=== PATIENT | female | born 1975 | race Caucasian/White ===

== ENCOUNTER 2022-07-09 07:45 | Outpatient (CLI) | payer BC, SELFPAY ==
[2022-07-09 10:49] LABS: Chloride* 103 mmol/L (96-114)
[2022-07-09 10:50] LABS: Albumin* 3.8 g/dL (3.3-5.0); Sodium* 135 mmol/L (135-149)
[2022-07-09 10:53] LABS: Alanine Aminotransferase* 17 U/L (4-35); Alkaline Phosphatase* 60 U/L (40-150); Aspartate Amino Transferase* 22 U/L (12-35); Bilirubin Total* 0.5 mg/dL (0.1-1.5); Blood Urea Nitrogen* 15 mg/dL (5-24); Calcium* 8.9 mg/dL (8.4-10.6); Carbon Dioxide* 26 mmol/L (20-32); Creatinine* 0.8 mg/dL (0.5-1.5); Estimated Glomerular Filt Rate 90 ml/min; Glucose* 113 mg/dL (60-115)
[2022-07-09 11:13] LABS: Vitamin D 25 Hydroxy* 46 ng/mL (30-80)
== END 2022-07-09 07:46 | disposition home or self-care (01) ==
PROVIDERS: PCP Internal Medicine; Visit Provider Nurse Practitioner Family
DX: R07.89 Other chest pain (principal); Z79.899 Other long term (current) drug therapy
CPT/HCPCS: 80053; 82306; 84443

== ENCOUNTER 2022-08-03 20:01 | Emergency (ER) | payer BC, SELFPAY ==
[2022-08-03 20:11] VITALS: BP 130/80; PULSE 81; RESP 16; TEMP 36.6; O2SAT 100; BMI 22.7
--- NOTE | 2022-08-03 21:08 | CRLHL7_ITS ---
For Patients: As a result of the Cures Act, medical imaging exams and procedure reports are released immediately into your electronic medical record. You may view this report before your referring provider. If you have questions, please contact your health care provider. INDICATION: Shortness of breath. TECHNIQUE: Chest 2 views. COMPARISON: None. FINDINGS: Lungs: Clear lungs. No consolidation. Pleura: No pleural effusion or pneumothorax. Heart and Mediastinum: The cardiomediastinal silhouette is normal. The vessels are unremarkable. Bones: Unremarkable. IMPRESSION: No acute cardiopulmonary disease. Dictated by Matthias Barbosa MD @ 08/03/2022 9:56:14 PM (Electronically Signed)
--- OUTSIDE RECORDS SUMMARY | 2022-08-03 21:25 | XMS_ITS | Encounter Summary ---
:1975 Author Organization [facility] Address [address] [place] [address] Care Team Providers Name Role Phone Unavailable Primary Care Provider Unavailable Encounter Details Date Type Department Care Team Description 04/30/2009 Hospital Encounter HX NO MAPPING Provider, Historical Social History Tobacco Use Types Packs/Day Years Used Date Smoking Tobacco: Never Assessed Alcohol Habits Answer Date Recorded How often do you have a drink containing alcohol? Never 03/12/2021 How many drinks containing alcohol do you have on a typical Not asked day when you are drinking? How often do you have six or more drinks on one occasion? No t asked Comment: Not asked Social Isolation Answer Date Recorded In a typical week, how many times do you More than three sarah es a week 06/22/2022 talk on the phone with family, friends, or neighbors? How often do you get together with friends Once a week 06/22/2022 or relatives? How often do you attend faith or Patient refused 2021 congregational services? Do you belong to any clubs or Yes 06/22/2022 organizations such as faith groups, unions, fraternal or athletic groups, or school groups? How often do you attend meetings of the More than 4 times pe r year 06/22/2022 clubs or organizations you belong to? Are you now , , , 06/22/2022 , never or living with a partner? Physical Activity Answer Date Recorded On average, how many days per week do you engage in moderate to 1 day 06/22/2022 strenuous exercise (like walking fast, running, jogging, dancing, swimming, biking, or other activities that cause a light or heavy sweat)? On average, how many minutes do you engage in exercise at th is 10 min 06/22/2022 level? Stress Answer Date Recorded Do you feel stress - tense, restless, nervous, or anxious, R ather much 06/22/2022 or unable to sleep at night because your mind is troubled all the time - these days? Financial Resource Strain Answer Date Recorded How hard is it for you to pay for the very basics like Not v christina hard 06/22/2022 food, housing, medical care, and heating? Intimate Partner Violence Answer Date Recorded Within the last year, have you been afraid of your Not asked partner or ex-partner? Within the last year, have you been humiliated or Yes 06/22/2022 emotionally abused in other ways by your partner or ex-partner? Within the last year, have you been kicked, hit, Not asked slapped, or otherwise physically hurt by your partner or ex-partner? Within the last year, have you been raped or forced to Patie nt refused 06/22/2022 have any kind of sexual activity by your partner or ex-partner? Food Insecurity Answer Date Recorded Within the past 12 months, you worried that your food Someti mes true 06/22/2022 would run out before you got money to buy more. Within the past 12 months, the food you bought just Never tr ue 06/22/2022 didn't last and you didn't have money to get more. Transportation Needs Answer Date Recorded In the past 12 months, has lack of transportation kept you f rom No 06/22/2022 medical appointments or from getting medications? In the past 12 months, has lack of transportation kept you f rom No 06/22/2022 meetings, work, or getting things needed for daily living? Housing Stability Answer Date Recorded In the last 12 months, was there a time when you were not ab le No 06/22/2022 to pay the mortgage or rent on time? In the last 12 months, how many places have you lived? 1 06/22/2022 In the last 12 months, was there a time when you did not hav e a No 06/22/[address] or slept in a long-term (including now)? Sex Assigned at Date Recorded Female 06/22/2022 8:38 AM CDT documented as of this encounter Medications at Time of Discharge Medication Sig Dispensed Refills Start Date End Date cyanocobalamin (VITAMIN B12) Take by mouth as 0 0 01/21/2008 500 mcg tablet needed. diazePAM (VALIUM) 2 mg Take by mouth as 0 008 tablet needed. documented as of this encounter Plan of Treatment Not on filedocumented as of this encounter Visit Diagnoses Not on filedocumented in this encounter
--- OUTSIDE RECORDS SUMMARY | 2022-08-03 21:25 | XMS_ITS | Encounter Summary ---
:1975 Author Organization [facility] Address [address] [place] [address] Care Team Providers Name Role Phone Unavailable Primary Care Provider Unavailable Reason for Visit Reason Comments Pre-visit Intake Encounter Details Date Type Department Care Team Description 03/10/2021 Clinical Communication Department of Qu[place], Pre- visit Intake Neurology in Robert Downey M.D. [place], [place] [address] [place] [address] [address] [place] [phone] Social History Tobacco Use Types Packs/Day Years Used Date Smoking Tobacco: Never Smokeless Tobacco: Never Alcohol Habits Answer Date Recorded How often [...] or relatives? How often do you attend gnosticist or Patient refused 2021 taoism services? Do you belong to any clubs or Yes 06/22/2022 organizations such as gnosticist groups, unions, fraternal or athletic groups, or [...] place to sleep or slept in a [place] [facility] (including now)? Sex Assigned at Date Recorded Female 06/22/2022 8:38 AM CDT documented as of this encounter Plan of Treatment Not on filedocumented as of this encounter Visit Diagnoses Not on filedocumented in this encounter
--- OUTSIDE RECORDS SUMMARY | 2022-08-03 21:25 | XMS_ITS | Encounter Summary ---
:1975 Author Organization [facility] Address [address] [place] [address] Care Team Providers Name Role Phone Unavailable Primary Care Provider Unavailable Encounter Details Date Type Department Care Team Description 07/14/2022 Orders Only Pharmacy Prior Auth RO Regina oSmers [phone] Social History Tobacco Use Types Packs/Day Years Used Date Smoking Tobacco: Never Smokeless Tobacco: Never Alcohol Use Standard Drinks/Week Comments Not Currently 0 (1 standard drink = 0.6 oz pure alcoho l) Alcohol Habits Answer Date Recorded How often [...] or relatives? How often do you attend baptism or Patient refused 2021 zoroastrianism services? Do you belong to any clubs or Yes 06/22/2022 organizations such as baptism groups, unions, fraternal or athletic groups, or [...] minutes do you engage in exercise at is 10 min 06/22/2022 level? Stress Answer [...] place to sleep or slept in a half-way (including now)? Education Answer Date Recorded What is the highest level of school Associate degree: danay briceño, 03/12/2021 you have completed or the highest technical, or vocational saira betancur degree you have received? Sex Assigned at Date Recorded Female 06/22/2022 8:38 AM CDT documented as of this encounter Plan of Treatment Not on filedocumented as of this encounter Visit Diagnoses Not on filedocumented in this encounter Additional Health Concerns Assessment Noted Time PHQ-9 Depression Total Score: 11 03/23/2021 2:58 PM CD T documented as of this encounter
--- OUTSIDE RECORDS SUMMARY | 2022-08-03 21:25 | XMS_ITS | Encounter Summary ---
:1975 Author Organization [facility] Address [address] [place] [address] Care Team Providers Name Role Phone Unavailable Primary Care Provider Unavailable Encounter Details Date Type Department Care Team Description 07/02/2022 Orders Only Pharmacy Prior Auth RO Negar Man [phone] Social History Tobacco Use Types Packs/Day Years [...] or relatives? How often do you attend sabianism or Patient refused 2021 adventism services? Do you belong to any clubs or Yes 06/22/2022 organizations such as sabianism groups, unions, fraternal or athletic groups, or [...] place to sleep or slept in a nursing home (including now)? Education Answer Date Recorded What is the highest level of school Associate degree: danay briceño, 03/12/2021 you have completed or the highest technical, or vocational p gypsy degree you have received? Sex Assigned at [...]
--- OUTSIDE RECORDS SUMMARY | 2022-08-03 21:25 | XMS_ITS | Encounter Summary ---
:1975 Author Organization [facility] Address [address] [place] [address] Care Team Providers Name Role Phone Unavailable Primary Care Provider Unavailable Reason for Visit Reason Comments Med Refill Encounter Details Date Type Department Care Team Description 04/13/2022 Refill Department of Neurology in Gus Schwarz M.D. Med Refill [place], [place] [address] [facility] [address] [place] [address] [place] [address] [phone] Social History Tobacco Use Types Packs/Day Years [...] or relatives? How often do you attend samaritan or Patient refused 2021 yazdanism services? Do you belong to any clubs or Yes 06/22/2022 organizations such as samaritan groups, unions, fraternal or athletic groups, or [...] place to sleep or slept in a senior care (including now)? Education Answer Date Recorded What is the highest level of school Associate degree: danay dylonelsy, 03/12/2021 you have completed or the highest technical, or vocational p gypsy degree you have received? Sex Assigned at Date Recorded Female 06/22/2022 8:38 AM CDT documented as of this encounter Miscellaneous Notes Telephone Encounter - Aurora Concepcion - 04/30/2022 8:18 AM CDT I will send the no refill letter via snail mail. Seems like the only option at this point. Telephone Encounter - Gus Lee M.D. - 04/14/2022 8:45 AM CDT Please have her obtain refills locally. Telephone Encounter - Viky Hernandez R.N. - 04/13/2022 9:31 AM CDT Patient has not seen you since February 2021. Should he refill this Emgality locally? documented in this encounter Plan of Treatment Not on filedocumented as of this encounter Visit Diagnoses Not on filedocumented in this encounter Additional Health Concerns Assessment Noted Time PHQ-9 Depression Total Score: 11 03/23/2021 2:58 PM CD T documented as of this encounter
--- OUTSIDE RECORDS SUMMARY | 2022-08-03 21:25 | XMS_ITS | Encounter Summary ---
:1975 Author Organization [facility] Address [address] [place] [address] Care Team Providers Name Role Phone Unavailable Primary Care Provider Unavailable Encounter Details Date Type Department Care Team Description 10/29/2021 Orders Only Pharmacy Prior Auth Anahi Villalta [phone] [address] [place] [address] Social History Tobacco Use Types Packs/Day Years [...] or relatives? How often do you attend scientologist or Patient refused 2021 pentecostalism services? Do you belong to any clubs or Yes 06/22/2022 organizations such as scientologist groups, unions, fraternal or athletic groups, or [...] place to sleep or slept in a [facility] (including now)? Education Answer Date Recorded What [...]
--- OUTSIDE RECORDS SUMMARY | 2022-08-03 21:25 | XMS_ITS | Encounter Summary ---
:1975 Author Organization [facility] Address [address] [place] [address] Care Team Providers Name Role Phone Unavailable Primary Care Provider Unavailable Encounter Details Date Type Department Care Team Description 03/12/2021 Ancillary Procedure Department of Batsheva Araya Occipital; Radiology in Robert Downey M.D. Headache Daily; [place], [place] [address] [facility] Migraine Headache Without Aura [address] [place] [phone] Social History Tobacco Use Types Packs/Day Years [...] or relatives? How often do you attend yazidi or Patient refused 2021 orthodox services? Do you belong to any clubs or Yes 06/22/2022 organizations such as yazidi groups, unions, fraternal or athletic groups, or [...] place to sleep or slept in a group home (including now)? Education Answer Date Recorded What is the highest level of school Associate degree: danay briceño, 03/12/2021 you have completed or the highest technical, or vocational p perram degree you have received? Sex Assigned at Date Recorded Female 06/22/2022 8:38 AM CDT documented as of this encounter Plan of Treatment Not on filedocumented as of this encounter Procedures Procedure Name Priority Date/Time Associated Comments Diagnosis INTERPRETATION OF RAD - Routine 03/12/2021 9:04 Neuralgia Result s for OUTSIDE MR HEAD (most inpatients AM CDT Occipital this procedure and all Headache Daily are in the outpatients) Migraine results Headache Without section. Aura documented in this encounter Results Interpretation of Outside MR Spine (03/12/2021 9:04 AM CDT) Anatomical Region Laterality Modality Neuroradiology RST LOS, Neuroradiology [facility], N/A Magnetic Resonance Neuroradiology FLA LOS, Spine, Other Specimen (Source) Anatomical Collection Method Collection Time Re ceived Time Location / / Volume Laterality 03/12/2021 9:08 AM CDT Impressions 03/12/2021 10:05 AM CDT 1. No focal etiology of headache identified. Stable somewhat prominent upwardly convex pituitary without evidence of ass ociated abnormal mass. 2. Mild cervical spondylosis. 3. Thyroid nodules, largest at left thyr oid lobe. ??Thyroid ultrasound would be helpful to further characterize. Narrative 03/12/2021 10:05 AM CDT EXAM: ??INTERPRETATION OF OUTSIDE MR HEAD, INTERPRETATION OF OUTSIDE MR SPINE COMPARISON: MR brain 01/18/2008 FINDINGS: ?? Outside MR brain with and without IV rizwana olinium contrast performed 02/02/2018. Outside cervical spine with and without IV gadolinium contrast performed 02/02/2018. BRAIN: Brain parenchyma demonstrates no evidenc e for abnormal mass, infarct, hemorrhage or hydrocephalus. No extra-axial fluid c ollection or midline shift. No abnormal parenchymal enhancement. Somewhat prominent, upwardly convex homo geneously enhancing pituitary gland, approximately 10 mm SI, not contacting t he overlying optic chiasm, with nonspecific appearance, unchanged compar ed with the prior study from 01/18/2008. Infundibular stalk is of normal caliber and is midline. Posterior pituitary bright spot is present. CERVICAL SPINE: Vertebral body heights are preserved. Mi ld right convex cervicothoracic curve. The bone marrow signal is within normal limits. Cervical cord is normal in signal, course and caliber. No abnormal enhancement. Mild cervical spondylosis with minimal l oss of disc space height at C6-C7 where there is a bulging disc, larger at the r ight, contributing to minimal spinal canal stenosis, with mild narrowing at p roximal right C6-C7 neural foramen. Tiny bulging disc at C5-C6. ??Remainder of the spinal canal is widely patent. Several thyroid nodules, the largest of which is at the anterior left lobe, approximately 1.4 x 0.8 x 2.1 cm (AP x M L x SI). ?? Procedure Note Deshawn Hodge Jr., M.D., Ph.D. - 02/28 EXAM: INTERPRETATION OF OUTSIDE MR HEAD, INTERPRETATION OF OUTSIDE MR SPINE COMPARISON: MR brain 01/18/2008 FINDINGS: Outside MR brain with and without IV rizwana olinium contrast performed 02/02/2018. Outside cervical spine with and without IV gadolinium contrast performed 02/02/2018. BRAIN: Brain parenchyma demonstrates no evidenc e for abnormal mass, infarct, hemorrhage or hydrocephalus. No extra-axial fluid c ollection or midline shift. No abnormal parenchymal enhancement. Somewhat prominent, upwardly convex homo geneously enhancing pituitary gland, approximately 10 mm SI, not contacting t he overlying optic chiasm, with nonspecific appearance, unchanged compar ed with the prior study from 01/18/2008. Infundibular stalk is of normal caliber and is midline. Posterior pituitary bright spot is present. CERVICAL SPINE: Vertebral body heights are preserved. Mi ld right convex cervicothoracic curve. The bone marrow signal is within normal limits. Cervical cord is normal in signal, course and caliber. No abnormal enhancement. Mild cervical spondylosis with minimal l oss of disc space height at C6-C7 where there is a bulging disc, larger at the r ight, contributing to minimal spinal canal stenosis, with mild narrowing at p roximal right C6-C7 neural foramen. Tiny bulging disc at C5-C6. Remainder of the spinal canal is widely patent. Several thyroid nodules, the largest of which is at the anterior left lobe, approximately 1.4 x 0.8 x 2.1 cm (AP x M L x SI). IMPRESSION: 1. No focal etiology of headache identif ied. Stable somewhat prominent upwardly convex pituitary without evidence of ass ociated abnormal mass. 2. Mild cervical spondylosis. 3. Thyroid nodules, largest at left thyr oid lobe. Thyroid ultrasound would be helpful to further characterize. Robert LLANES MRI PROCEDURES Interpretation of Outside MR Head (03/12/2021 9:04 AM CDT) Anatomical Region Laterality Modality Neuroradiology RST LOS, Neuroradiology [facility]Z LOS, N/A Magnetic Resonance Neuroradiology FLA LOS, Head, Other Specimen (Source) Anatomical Collection Method Collection Time Re ceived Time Location / / Volume Laterality 03/12/2021 9:08 AM CDT Impressions 03/12/2021 10:05 AM CDT 1. No focal etiology of headache identified. Stable somewhat prominent upwardly convex pituitary without evidence of ass ociated abnormal mass. 2. Mild cervical spondylosis. 3. Thyroid nodules, largest at left thyr oid lobe. ??Thyroid ultrasound would be helpful to further characterize. Narrative 03/12/2021 10:05 AM CDT EXAM: ??INTERPRETATION OF OUTSIDE MR HEAD, INTERPRETATION OF OUTSIDE MR SPINE COMPARISON: MR brain 01/18/2008 FINDINGS: ?? Outside MR brain with and without IV rizwana olinium contrast performed 02/02/2018. Outside cervical spine with and without IV gadolinium contrast performed 02/02/2018. BRAIN: Brain parenchyma demonstrates no evidenc e for abnormal mass, infarct, hemorrhage or hydrocephalus. No extra-axial fluid c ollection or midline shift. No abnormal parenchymal enhancement. Somewhat prominent, upwardly convex homo geneously enhancing pituitary gland, approximately 10 mm SI, not contacting t he overlying optic chiasm, with nonspecific appearance, unchanged compar ed with the prior study from 01/18/2008. Infundibular stalk is of normal caliber and is midline. Posterior pituitary bright spot is present. CERVICAL SPINE: Vertebral body heights are preserved. Mi ld right convex cervicothoracic curve. The bone marrow signal is within normal limits. Cervical cord is normal in signal, course and caliber. No abnormal enhancement. Mild cervical spondylosis with minimal l oss of disc space height at C6-C7 where there is a bulging disc, larger at the r ight, contributing to minimal spinal canal stenosis, with mild narrowing at p roximal right C6-C7 neural foramen. Tiny bulging disc at C5-C6. ??Remainder of the spinal canal is widely patent. Several thyroid nodules, the largest of which is at the anterior left lobe, approximately 1.4 x 0.8 x 2.1 cm (AP x M L x SI). ?? Procedure Note Deshawn Hodge Jr., M.D., Ph.D. - 02/28 EXAM: INTERPRETATION OF OUTSIDE MR HEAD, INTERPRETATION OF OUTSIDE MR SPINE COMPARISON: MR brain 01/18/2008 FINDINGS: Outside MR brain with and without IV rizwana olinium contrast performed 02/02/2018. Outside cervical spine with and without IV gadolinium contrast performed 02/02/2018. BRAIN: Brain parenchyma demonstrates no evidenc e for abnormal mass, infarct, hemorrhage or hydrocephalus. No extra-axial fluid c ollection or midline shift. No abnormal parenchymal enhancement. Somewhat prominent, upwardly convex homo geneously enhancing pituitary gland, approximately 10 mm SI, not contacting t he overlying optic chiasm, with nonspecific appearance, unchanged compar ed with the prior study from 01/18/2008. Infundibular stalk is of normal caliber and is midline. Posterior pituitary bright spot is present. CERVICAL SPINE: Vertebral body heights are preserved. Mi ld right convex cervicothoracic curve. The bone marrow signal is within normal limits. Cervical cord is normal in signal, course and caliber. No abnormal enhancement. Mild cervical spondylosis with minimal l oss of disc space height at C6-C7 where there is a bulging disc, larger at the r ight, contributing to minimal spinal canal stenosis, with mild narrowing at p roximal right C6-C7 neural foramen. Tiny bulging disc at C5-C6. Remainder of the spinal canal is widely patent. Several thyroid nodules, the largest of which is at the anterior left lobe, approximately 1.4 x 0.8 x 2.1 cm (AP x M L x SI). IMPRESSION: 1. No focal etiology of headache identif ied. Stable somewhat prominent upwardly convex pituitary without evidence of ass ociated abnormal mass. 2. Mild cervical spondylosis. 3. Thyroid nodules, largest at left thyr oid lobe. Thyroid ultrasound would be helpful to further characterize. Robert Araya M.D. IMG MRI PROCEDURES documented in this encounter Visit Diagnoses Diagnosis Neuralgia Occipital Headache Daily Migraine Headache Without Aura Neuralgia Occipital Headache Daily Migraine Headache Without Aura documented in this encounter
--- OUTSIDE RECORDS SUMMARY | 2022-08-03 21:25 | XMS_ITS | Encounter Summary ---
:1975 Author Organization [facility] Address [address] [place] [address] Care Team Providers Name Role Phone Unavailable Primary Care Provider Unavailable Encounter Details Date Type Department Care Team Description 06/10/2008 Hospital Encounter HX [facility]LT Provider, [place] boo Social History Tobacco Use Types Packs/Day Years [...] or relatives? How often do you attend rastafari or Patient refused 2021 anabaptism services? Do you belong to any clubs or Yes 06/22/2022 organizations such as rastafari groups, unions, fraternal or athletic groups, or [...] slept in a senior care (including now)? Sex Assigned at Date Recorded [...]
--- OUTSIDE RECORDS SUMMARY | 2022-08-03 21:25 | XMS_ITS | Encounter Summary ---
:1975 Author Organization [facility] Address [address] [place] [address] Care Team Providers Name Role Phone Unavailable Primary Care Provider Unavailable Reason for Referral Outpatient (Routine) - Authorized Specialty Diagnoses / Procedures Referred By Contact Refer red To Contact Neurology Gus Lee M .D. [address] [phone] Referral ID Status Reason Start Date Expiration Date Visits V isits Requested Authorized [id number] Authorized 06/24/2022 06/23/2025 1 1 Medication Prior Authorization - Denied Specialty Diagnoses / Procedures Referred By Contact Refer red To Contact Gus Lee M .D. [address] [place] [phone] Referral ID Status Reason Start Date Expiration Date Visits Requ ested Visits Authorized [id number] Denied 1 1 Reason for Visit Outpatient (Routine) - Closed Specialty Diagnoses / Procedures Referred By Contact Refer red To Contact Neurology Gus Lee M .D. [address] [phone] Referral ID Status Reason Start Date Expiration Date Visits Requ ested Visits Authorized [id number] Closed 03/23/2021 03/23/2022 1 1 Encounter Details Date Type Department Care Team Description 06/24/2022 Telemedicine Department of [facility], Migraine Heada jyoti Chronic (Primary Dx); Neurology in Ramon Weber Migraine Headache Without Aura [place], [place] 200 [facility] 200 [place] [id number] Social History Tobacco Use Types Packs/Day Years [...] or relatives? How often do you attend latter-day or Patient refused 2021 muslim services? Do you belong to any clubs or Yes 06/22/2022 organizations such as latter-day groups, unions, fraternal or athletic groups, or [...] place to sleep or slept in a skilled nursing (including now)? Education Answer Date Recorded What is the highest level of school Associate degree: danay briceño, 03/12/2021 you have completed or the highest technical, or vocational p gypsy degree you have received? Sex Assigned at Date Recorded Female 06/22/2022 8:38 AM CDT documented as of this encounter Progress Notes Gus Lee M.D. - 06/24/2022 10:30 AM CDT SUBJECTIVE This visit was conducted via real-time audio/video technology by Gus Lee M.D. at [facility] to the patient in patient's home. This Video Visit was performed during the COVID-19 emergency, when many states had issued zeimavh-nv-bnuhi orders. CHIEF COMPLAINT / REASON FOR VISIT: Ms. Echeverria returns today for subsequent evaluation and assessment of the effectiveness of treatments suggested at her previous visit in February 2021 Since her last visit she has been taking: none of the above oral medications; Galcanezumab (Emgality) at a dose of 120 mg sc every 4 weeks; HISTORY OF PRESENT ILLNESS: Over the past 4 weeks, Ms. Echeverria reports having had 3 headache days. Over the past 4 weeks the average severity and disability caused by the patients headaches is 2-moderate. She reports significant improvement of her headache after she was started on Emgality. She feel likeit has changed her life totally and she is not able to live a normal life. The headache reduced from28 days to 3 days per month. During those 3 days, she only has mild headache. She tried rizatriptan but felt like it gives the same side effects as sumatriptan. She currently uses ibuprofen and aspirin as needed. She has completely stop the narcotic and marijuana that she was using given the improvement she receives from Emgality. Current Acute Headache Medications: Advil prn Current Prophylactic Headache Medications: Emgality since February 2021 Medications used in the past for headache (acute and prophylactic): Sumatriptan Rizatriptan- side effects Past preventative medications have included Topiramate- felt medicated 100 mg daily, started with 25 mg, not able to tolerate side effect Gabapentin- brain fog Naltrexone - not sure if it helped, but were also on duloxetine and topamax Duloxetine- added with naltrexone and topamax, did not help Pregabalin-- did not help Amitriptyline- does not remember She has also had 2 rounds of Botox 3 months apart. Not sure how many units, could not remember whether it heoped Nerve blocks- the pain was gone for several hours then came back, she said it was with steroid. She has had radiofrequency ablation at least twice that she recalls. She has also tried Flexeril helped a bit Tizanidine 4 mg helps a little Zofran- helped with nausea Indomethacin, not sure if it helped The MIDAS score today which reflects the past three months was 2. Over the past three months her average subjective pain severity scale was (0 - 10) 8. The following portions of the patient's history were reviewed and updated as appropriate: allergies,current medications, family history, medical history, social history, surgical history, and problem list. ASSESSMENT / PLAN # Chronic migraine # Migraine without aura # History of medication overuse headache with opioid and cannabis, resolved # Remote history of meningitis 15 years ago, recovered well # History of Cuello's palsy 8 years ago, recovered well Treatment Recommendations over the next few months: For further investigation of Ms. Echeverria's headaches or comorbid disorders I am suggesting additional testing which includes: No testing ordered at this visit Recommended therapies for acute treatment of headache: She has tried sumatriptan and rizatriptan but experienced side effect and not able to tolerate. She is interested in trying Nurtec. Rimegepant is a CGRP receptor antagonist. It received FDA approval for the acute treatment of migraine in 2019. It is a migraine specific medication. Please take it at the onset of migraine. Maximum one tablet in 24 hours. Potential side effects include tiredness, nausea, dry eye, and constipation. We discussed that she can use it up to 16 days per month. Other options include Ubrelvy, naratriptan Preventative therapies recommended: She will continue Emgality for now given the significant improvement. She thought maybe it is becoming less effective over the past several months. I recommended her to continue to monitor the progress. If her headache worsens, we could consider switching to Aimovig or Ajovy. I attempted to answer any questions that she had regarding her headaches and the recommended treatment. Recommend lifestyle modifications including the SEEDS for success in headache management, including Sleep hygiene, Exercising regularly, Eating healthy and regular meals, Drinking water and maintaininga headache Diary, and Stress reduction. Follow up plan: with me in 9-12 months Total visit time 25 minutes including [id number] time, chart reviewed and documentation, with over50% spent counseling with the patient and coordination of care activities described above. Answers submitted by the patient for this visit: General Review of Symptoms (Submitted on 06/22/2022) No general issues: Yes No eye issues: Yes No ENT issues: Yes Rapid or fluttering heart beats: Yes No respiratory issues: Yes No GI issues: Yes No muscle/bone issues: Yes No skin issues: Yes Headache: Yes No mental health issues: Yes No blood/lymph issues: Yes No urinary/reproductive issues: Yes (Submitted on 06/22/2022) How would you rate the average maximum headache pain that you have experienced over the past 4 weekswith 0 = No Pain and 10 = the worst imaginable pain?: 7 documented in this encounter Plan of Treatment Scheduled Referrals Name Type Priority Associated Diagnoses [facility] Outpatient Referral Routine Expe cted: visit (clinic) 06/24/2023 (Approximate), Expires: 09/24/2023 documented as of this encounter Visit Diagnoses Diagnosis Migraine Headache Chronic - Primary Migraine Headache Without Aura documented in this encounter Additional Health Concerns Assessment Noted Time PHQ-9 Depression Total Score: 11 03/23/2021 2:58 PM CD T documented as of this encounter
--- OUTSIDE RECORDS SUMMARY | 2022-08-03 21:25 | XMS_ITS | Encounter Summary ---
:1975 Author Organization [facility] Address [address] [place] [address] Care Team Providers Name Role Phone Unavailable Primary Care Provider Unavailable Encounter Details Date Type Department Care Team Description 11/03/2021 Orders Only [facility] S[facility]chez, Pcp [address] [place], [place] [phone] Social History Tobacco Use Types Packs/Day Years [...] or relatives? How often do you attend lutheran or Patient refused 2021 presybeterian services? Do you belong to any clubs or Yes 06/22/2022 organizations such as lutheran groups, unions, fraternal or athletic groups, or [...] place to sleep or slept in a fdc (including now)? Education Answer Date Recorded What [...]
--- OUTSIDE RECORDS SUMMARY | 2022-08-03 21:25 | XMS_ITS | Encounter Summary ---
:1975 Author Organization [facility] Address [address] [place] [address] Care Team Providers Name Role Phone Unavailable Primary Care Provider Unavailable Reason for Referral Outpatient (Routine) - Closed Specialty Diagnoses / Procedures Referred By Contact Refer red To Contact Neurology Diagnoses Neuralgia Occipital Headache Daily Migraine Headache Without Aura Robert Araya M.D. [facility] [address] [place] [address] Referral ID Status Reason Start Date Expiration Date Visits Requ ested Visits Authorized [id number] Closed 03/12/2021 03/12/2022 1 1 Reason for Visit Appointment Request (Routine) - Closed Specialty Diagnoses / Procedures Referred By Contact Refer red To Contact Neurological Surgery Diagnoses Neuralgia Occipital Referral ID Status Reason Start Date Expiration Date Visits Requ ested Visits Authorized [id number] Closed 03/02/2021 03/02/2022 2 1 Encounter Details Date Type Department Care Team Description 03/12/2021 Comprehensive Visit Department of Batsheva Araya Occipital (Primary Dx); Neurology in Robert Downey M.D. Headache Daily; [place], [place] [address] [facility] Migraine Headache Without Aura [address] [place] [phone] Social History Tobacco Use Types Packs/Day Years [...] or relatives? How often do you attend mandaeism or Patient refused 2021 temple services? Do you belong to any clubs or Yes 06/22/2022 organizations such as mandaeism groups, unions, fraternal or athletic groups, or school groups? How often do you attend meetings of the More than 4 times r year 06/22/2022 clubs or organizations you [...] place to sleep or slept in a [facility] (including now)? Education Answer Date Recorded What is the highest level of school Associate degree: danay briceño, 03/12/2021 you have completed or the highest technical, or vocational p perram degree you have received? Sex Assigned at Date Recorded Female 06/22/2022 8:38 AM CDT documented as of this encounter Last Filed Vital Signs Vital Sign Reading Time Taken Comments Blood Pressure - - Pulse - - Temperature - - Respiratory Rate - - Oxygen Saturation - - Inhaled Oxygen Concentration - - Weight 80 kg (176 lb 5.9 oz) 03/12/2021 7:33 AM CDT Height 182 cm (5' 11.65) 03/12/2021 7:33 AM CDT Body Mass Index 24.15 03/12/2021 7:33 AM CDT documented in this encounter Consult Notes Robert Araya M.D. - 03/12/2021 8:00 AM CDT SUBJECTIVE Referring Provider: No ref. provider found CHIEF COMPLAINT / REASON FOR VISIT Vivek Echeverria is a 45 y.o. left-handed female who presents for evaluation of head pain with anoutside diagnosis of occipital neuralgia. HISTORY OF PRESENT ILLNESS Ms. Echeverria indicates that headaches of any kind began in 2014. Those were migraines. She describes these as usually left-sided pain, but occasionally holocephalic that would be a throbbing sensation as well as with retro-orbital and nasal pain. This was associated with nausea and light sensitivity. When those started they were initially happening every couple of days. Over time, there was a gradual change so that headache type subsided and now she rarely gets them, but they were replaced by a different type of headache some time around 2016 or 2017. That is what she currently presents with. She describes this pain as a deep, twisting pain on the left side occipitally. When it starts it will gradually progress throughout the day, more so if she is active. It is like a deep burning. If it worsens enough, then it will become more diffuse, especially over the bilateral temples and above the brows. The pain is very different than her previous migraine headaches, and she describes it as a brighter kind of pain. There are no environmental sensitivities or nausea. It can last as long as 2 weeks, but usually will last a few days. There are no associated autonomic symptoms. There are times where she will not have any pain, maybe most often in the morning, but every day she will have some degree of this left posterior pain. It is not especially sensitive to touch, though does feel a little bit like asoreness or a deep bruise if she pushes there. Sometimes pushing there actually alleviates symptoms or feels a little better. Past preventative medications have included topiramate, duloxetine, gabapentin, pregabalin, amitriptyline, and probably propranolol. She has never been on Depakote, verapamil, or a CGRP antagonist. She has also tried Flexeril, Zofran, tizanidine, Boniva, etodolac, naltrexone, and medical cannabis.She was probably also on indomethacin at some point, as that sounds familiar to her. She may have tried rizatriptan at one point, but has not been on other triptans or small molecule CGRP antagonist. She has had occipital nerve blocks, which only helped for a couple of hours. She has had radiofrequency ablation at least twice that she recalls. She has also had 2 rounds of Botox 3 months apart. She has also tried different diets as well as physical and occupational therapy. MRI brain and cervical spine imaging performed at home in 2018 were essentially unremarkable. I reviewed these images today. Currently she takes Abernathy 3-5 days a week. She will not take more than 1 pill in a day, sometimes cutting it in half and taking the 2 halves at several points during the day. Her symptoms have been significantly disabling to her. She has discussed an occipital nerve stimulator with her pain care providers at home. She has also discussed occipital nerve decompression surgery. She attempted to get an appointment with Dr. Welsh, who reviewed her chart and said that she wouldnot be a candidate for decompression. She was not able to meet with Dr. Welsh . She flew to [place] to see Dr. Stern, who said he would do an occipital nerve decompression, but said it had to be matute only in payment, and he would not go through insurance for it. The following portions of the patient's history were reviewed and updated as appropriate: allergies,current medications, family history, medical history, social history, surgical history and problem list. REVIEW OF SYSTEMS Ten point review of systems completed; pertinent positives noted in HPI. OBJECTIVE I have reviewed vital signs as recorded in the EPIC record. PHYSICAL EXAM For details of the neurologic examination, please see the neurologic examination form. In summary: This is a normal neurologic examination. Left occiput and occipital notch palpation do not elicit symptoms or tenderness. ASSESSMENT / PLAN #1 Non-migrainous occipital pain with previous diagnosis of occipital neuralgia #2 Episodic migraine without aura She has had significant debility related to her pain. She has been on a number of treatments, including many standard headache preventative therapies as well as nonstandard therapies including medical cannabis. She is currently considering more invasive strategies for management. She would be best served by evaluation in the [facility]. We discussed the reasoning behind this. Order placed. She was originally prescheduled to see a neuro surgery. It looks like the original referral was [facility], and the neuralgia component ended up getting translated as trigeminal neuralgia. She does not have trigeminal neuralgia. Presently, I do not think a neurosurgical consultation would be useful unless it would be deemed so by 1 of our headache subspecialists. I have canceled this consultation. I will have Radiology review her outside films from 2018. PATIENT EDUCATION Ready to learn, no apparent learning barriers were identified; learning preferences include listening. Explained diagnosis and treatment plan; patient expressed understanding of the content. Total time with patient was 60 minutes with >50% spent in counseling. documented in this encounter Plan of Treatment Scheduled Referrals Name Type Priority Associated Diagnoses Order [facility] Neurology - Outpatient Referral Routine Neuralgia Oc cipital Expected: Headache consult Headache Daily 03/12/2021 (clinic) Migraine Headache (Approxima te), Without Aura Expires: 03/12/2024 documented as of this encounter Results Interpretation of Outside MR Spine (03/12/2021 9:04 AM CDT) Anatomical Region Laterality Modality Neuroradiology RST LOS, Neuroradiology ARZ LOS, N/A Magnetic Resonance Neuroradiology FLA LOS, Spine, [...] to further characterize. Robert LLANES MRI PROCEDURES documented in this encounter Visit Diagnoses Diagnosis Neuralgia Occipital - Primary Headache Daily Migraine Headache Without Aura Neuralgia Occipital Headache Daily Migraine Headache Without Aura Neuralgia Occipital Headache Daily Migraine Headache Without Aura documented in this encounter
--- OUTSIDE RECORDS SUMMARY | 2022-08-03 21:25 | XMS_ITS | Encounter Summary ---
:1975 Author Organization [facility] Address [address] [place] [address] Care Team Providers Name Role Phone Unavailable Primary Care Provider Unavailable Reason for Visit Reason Comments Appointment Encounter Details Date Type Department Care Team Description 03/04/2021 Clinical Communication Department of Nilay Nation , Appointment Neurologic Surgery in M.D., Ph.D. [place], [place] [address] [place] [address] Social History Tobacco Use Types Packs/Day Years [...] or relatives? How often do you attend confucianism or Patient refused 2021 faith services? Do you belong to any clubs or Yes 06/22/2022 organizations such as confucianism groups, unions, fraternal or athletic groups, or [...] place to sleep or slept in a residential (including now)? Sex Assigned at Date Recorded Female 06/22/2022 8:38 AM CDT documented as of this encounter Plan of Treatment Not on filedocumented as of this encounter Visit Diagnoses Not on filedocumented in this encounter
--- OUTSIDE RECORDS SUMMARY | 2022-08-03 21:25 | XMS_ITS | Encounter Summary ---
:1975 Author Organization [facility] Address [address] [place] [address] Care Team Providers Name Role Phone Unavailable Primary Care Provider Unavailable Encounter Details Date Type Department Care Team Description 05/13/2022 Orders Only Pharmacy Prior Auth Enrique Holt [phone] Social History Tobacco Use Types Packs/Day Years [...] or relatives? How often do you attend adventism or Patient refused 2021 rastafarian services? Do you belong to any clubs or Yes 06/22/2022 organizations such as adventism groups, unions, fraternal or athletic groups, or [...] place to sleep or slept in a custodial (including now)? Education Answer Date Recorded What [...]
--- OUTSIDE RECORDS SUMMARY | 2022-08-03 21:25 | XMS_ITS | Encounter Summary ---
:1975 Author Organization [facility] Address [address] [place] [address] Care Team Providers Name Role Phone Unavailable Primary Care Provider Unavailable Encounter Details Date Type Department Care Team Description 10/31/2011 Hospital Encounter HX NO MAPPING Provider, Historical [...] or relatives? How often do you attend methodist or Patient refused 2021 quaker services? Do you belong to any clubs or Yes 06/22/2022 organizations such as methodist groups, unions, fraternal or athletic groups, or [...] or slept in a custodial (including now)? Sex Assigned at Date Recorded Female 06/22/2022 8:38 AM CDT documented as of this encounter Medications at Time of Discharge Medication Sig Dispensed Refills Start Date End Date cyanocobalamin (VITAMIN Take by mouth as 0 2007 B12) 500 mcg tablet needed. diazePAM (VALIUM) 2 mg Take by mouth as 0 008 tablet needed. ferrous sulfate 325 mg (65 Take 325 mg by 0 08/1003/12/2021 mg iron) DR tablet mouth daily. documented as of this encounter Miscellaneous Notes Miscellaneous - Conversion, Historical Provider Ser - 10/31/2011 12:00 AM API PRODUCT MANAGER [id number] 06/19/2012 - Records released to self [email or web address] Document Id: [id number] documented in this encounter Plan of Treatment Not on filedocumented as of this encounter Visit Diagnoses Not on filedocumented in this encounter
--- OUTSIDE RECORDS SUMMARY | 2022-08-03 21:25 | XMS_ITS | Encounter Summary ---
:1975 Author Organization [facility] Address [address] [place] [address] Care Team Providers Name Role Phone Unavailable Primary Care Provider Unavailable Encounter Details Date Type Department Care Team Description 06/29/2008 Hospital Encounter HX [facility] Provider, Historic al Social History Tobacco Use Types Packs/Day Years [...] or relatives? How often do you attend jainism or Patient refused 2021 shinto services? Do you belong to any clubs or Yes 06/22/2022 organizations such as jainism groups, unions, fraternal or athletic groups, or [...] place to sleep or slept in a correction (including now)? Sex Assigned at Date Recorded [...]
--- OUTSIDE RECORDS SUMMARY | 2022-08-03 21:25 | XMS_ITS | Encounter Summary ---
:1975 Author Organization [facility] Address [address] [place] [address] Care Team Providers Name Role Phone Unavailable Primary Care Provider Unavailable Reason for Visit Reason Comments Rx Prior Authorization [employer]GAL[employer] Encounter Details Date Type Department Care Team Description 10/19/2021 Clinical Communication Department of Анна [facility] in [place], Authorization Ramon Yoon (EMGALITY) [place] [address] [facility] [id number] [place] [phone] [place] [address] Social History Tobacco Use Types Packs/Day Years [...] or relatives? How often do you attend nondenominational or Patient refused 2021 mandaeism services? Do you belong to any clubs or Yes 06/22/2022 organizations such as nondenominational groups, unions, fraternal or athletic groups, or [...] place to sleep or slept in a chcf (including now)? Education Answer Date Recorded What is the highest level of school Associate degree: danay briceño, 03/12/2021 you have completed or the highest technical, or vocational p gypsy degree you have received? Sex Assigned at Date Recorded Female 06/22/2022 8:38 AM CDT documented as of this encounter Miscellaneous Notes Telephone Encounter - Anahi Worrell - 10/27/2021 10:14 AM CST Can you try and reach out to the patient again to get new insurance information from her? I called the pharmacy and they don't have anything new and I tried calling patient but it went to voicemail (wedon't leave messages). It looks like she no longer has [facility] as when I try to complete the PA, it says they can't find the patient. Thanks! OR BUSINESS PROCESS ANALYST Telephone Encounter - Anahi Worrell - 10/26/2021 4:55 PM CST Thanks! Working on the PA now. OR BUSINESS PROCESS ANALYST Telephone Encounter - Anahi Worrell - 10/19/2021 3:54 PM CST I'm working on a PA renewal for [employer]. Can I get an update on how patient is doing on the medication? How many headache/migraine days is she having? Has she had a 50% reduction in frequency/intensity? Any information will be helpful. Thanks! OR BUSINESS PROCESS ANALYST documented in this encounter Plan of Treatment Not on filedocumented as of this encounter Visit Diagnoses Not on filedocumented in this encounter Additional Health Concerns Assessment Noted Time PHQ-9 Depression Total Score: 11 03/23/2021 2:58 PM CD T documented as of this encounter
--- OUTSIDE RECORDS SUMMARY | 2022-08-03 21:25 | XMS_ITS | Clinical Summary ---
:1975 Author Organization [facility] Address [address] [place] [id number] Care Team Providers Name Role Phone Unavailable Primary Care Provider Unavailable Source Comments Patient records contain information from all sites at [facility]. For routine questions regarding patient records, call [phone] during business hours, M-F 8:00 AM - 5:00 PM Central Time. Record requests for emergency care only can be directed to [phone] at any time.[facility] Allergies Active Allergy Reactions Severity Noted Date Comments Pollen Extracts Other (see comments) 03/10/2021 Snee zing, watery eyes Medications Medication Sig Dispensed Refills Start Date End Date Status LORazepam (ATIVAN) as needed. 0 04/24/2015 Active 0.5 mg tablet thyroid, pork, Take 90 mg by 0 02/04/2021 Active (ARMOUR) 90 mg tablet mouth daily. tretinoin (RETIN-A) as needed. 0 01/18/2021 Active 0.025 % cream triamcinolone Apply topically 0 11/12/2020 Active (KENALOG) 0.1 % cream as needed. galcanezumab-gnlm Inject 1 mL (120 1 pen 11 03/23/2021 Active (EMGALITY) 120 mg/mL mg total) under injection the skin every 30 (thirty) days. rizatriptan UNDERCOATER Take 1 tablet 18 tablet 6 03/23/2021 Active (MAXALT-UNDERCOATER) 10 mg (10 mg total) by disintegrating tablet mouth as needed for migraine. May repeat dose once in 2 hours if migraine unresolved. Do not exceed 30 mg in 24 hours. cyanocobalamin Take by mouth as 0 01/21/2008 Active (VITAMIN B12) 500 mcg needed. tablet Adderall XR 20 mg 24 Take by mouth as 0 05/11/2022 Active hr capsule needed. diazePAM (VALIUM) 2 Take by mouth as 0 04/01/2008 Active mg tablet needed. PROGESTERONE Take 1 capsule 0 Ac tive MICRONIZED ORAL by mouth daily. galcanezumab-gnlm Inject 1 mL (120 1 mL 11 06/21/2022 Active (EMGALITY) 120 mg/mL mg total) under injection the skin every 30 (thirty) days. rimegepant (NURTEC Dissolve 1 16 tablet 11 06/24/2022 Active ODT) 75 mg tablet (75 mg disintegrating tablet total) in the mouth as needed for migraine. The safety of treating more than 15 migraines in a 30-day period has not been established. ubrogepant (UBRELVY) Take 1 tablet 10 each 06/30/2022 Active 100 mg tablet tablet (100 mg total) by mouth as needed for migraine. May repeat dose once after at least 2 hours if migraine is unresolved. Do not exceed 200 mg in 24 hours. galcanezumab-gnlm Inject 1 mL (120 1 mL 0 07/28/202207/02 (EMGALITY) 120 mg/mL mg total) under injection the skin once for 1 dose. 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 07/14/2022 Orders Only Pharmacy Regina Somers 07/02/2022 Orders Only Pharmacy Negar Man 06/30/2022 Orders Only Pharmacy Enrique Aguirre 06/30/2022 Orders Only Neurology Gus Lee M.D. 06/29/2022 Clinical Pharmacy Jose Burnham Rx Prior Communication Authorization (PA JEANETH - NURTEC 75MG TABS ) 06/29/2022 Orders Only Pharmacy Jose Burnham 06/24/2022 Telemedicine Neurology Jesus, Migraine Headac he Chronic (Primary Dx); Ramon Weber Migraine Hea dache Without Aura 06/21/2022 Clinical Admitting/Central Pre-visit Intake Communication Scheduling 05/13/2022 Orders Only Pharmacy Enrique Aguirre from Last 3 Months Immunizations Name Administration Dates Next Due Influenza, Unspecified 09/16/2004 Family History Medical History Relation Name Comments Coronary artery disease Father Dementia Father Diabetes Father Hyperlipidemia Father Hypertension Father Relation Name Status Comments Father Social History Tobacco Use Types Packs/Day Years Used Date Smoking Tobacco: Never Smokeless Tobacco: Never Tobacco Cessation: Counseling Given: Not Answered Alcohol Use Standard Drinks/Week Comments Not Currently [...] or relatives? How often do you attend advent or Patient refused 2021 confucianism services? Do you belong to any clubs or Yes 06/22/2022 organizations such as advent groups, unions, fraternal or athletic groups, or [...] place to sleep or slept in a care home (including now)? Education Answer Date Recorded What is the highest level of school Associate degree: danay briceño, 03/12/2021 you have completed or the highest technical, or vocational p perram degree you have received? Sex Assigned at Date Recorded Female 06/22/2022 8:38 AM CDT Last Filed Vital Signs Vital Sign Reading Time Taken Comments Blood Pressure - - Pulse - - Temperature - - Respiratory Rate - - Oxygen Saturation - - Inhaled Oxygen Concentration - - Weight 80 kg (176 lb 5.9 oz) 03/12/2021 7:33 AM CDT Height 182 cm (5' 11.65) 03/12/2021 7:33 AM CDT Body Mass Index 24.15 03/12/2021 7:33 AM CDT Plan of Treatment Health Maintenance Due Date Last Done Comments CT Colonography 1975 Cologuard 1975 Colonoscopy 1975 Colorectal Cancer Screening 1975 FIT 1975 Fasting Glucose for 1975 Diabetes Screening HIV Screening 1975 Hepatitis B Vaccines (1 of 1975 3 - 3-dose series) Hepatitis C Screening 1975 Lipid (Cholesterol) 1975 Screening Mammogram 1975 Thyroid Stimulating Hormone 1975 (TSH) test for thyroid function COVID-19 Vaccine (#1) 1975 DTaP,Tdap,and Td Vaccines 05/14/2019 05/14/2009 (2 - Td or Tdap) Depression Monitoring 07/24/2021 03/23/2021 (PHQ-9) Influenza Vaccine (#1) 2022 07/27/2018, 09/29/2017, 09/16/2004, Additional history exists Cervical Cancer Screening 07/09/2024 07/09/2021 Pneumococcal vaccine (0-64 Aged Out No lo nger eligible years) based on patient 's age to complete this topic Medical Devices Implanted Type Area Hand Driller Device Shelf Model / Identifier Expiration Serial / Date Lot Breast Implant-10/31/2016 Breast Bilateral: Implanted: 10/31/2016 (Quantity not on file) Implant Breast Hardware E.G. Hardware Uterus Pins/Screws/R e.g. ods pins/screws/ rods Description: Essure parts left imbedded: no longer uses as birthcontrol Insurance Payer Benefit Plan Subscriber ID Effective Phone Address Typ e / Group Dates BLUE CROSS BCBS BLUE [id number] 2020-Prese ATTN: Jordy cobb HMO BLUE SHIELD PLUS HMO nt [facility] [address] [address] [place] [address]
--- OUTSIDE RECORDS SUMMARY | 2022-08-03 21:25 | XMS_ITS | Encounter Summary ---
:1975 Author Organization [facility] Address [address] [place] [address] Care Team Providers Name Role Phone Unavailable Primary Care Provider Unavailable Reason for Visit Reason Comments Rx Prior Authorization JORGE A DENIED - NURTEC 75MG TABS Encounter Details Date Type Department Care Team Description 06/29/2022 Clinical Pharmacy Prior Jose Burnham Rx Prior Communication Auth [id number] Authorization (JORGE A DENIED - NURTEC 75MG TABS ) Social History Tobacco Use Types Packs/Day Years [...] or relatives? How often do you attend presybeterian or Patient refused 2021 shinto services? Do you belong to any clubs or Yes 06/22/2022 organizations such as presybeterian groups, unions, fraternal or athletic groups, or [...] to sleep or slept in a senior living (including now)? Education Answer Date Recorded What is the highest level of school Associate degree: danay briceño, 03/12/2021 you have completed or the highest technical, or vocational p gypsy degree you have received? Sex Assigned at Date Recorded Female 06/22/2022 8:38 AM CDT documented as of this encounter Miscellaneous Notes Telephone Encounter - Viky Hernandez R.N. - 07/01/2022 9:08 AM CDT Patient online message sent. Telephone Encounter - Gus Lee M.D. - 06/30/2022 12:36 PM CDT I sent a prescription of Ubrelvy 100 mg Telephone Encounter - Viky Hernandez R.N. - 06/30/2022 10:36 AM CDT Nurtec denied with reason listed has to try Ubrelvy first. If you wish to appeal instead, has to have either tried/stopped Ubrelvy due to poor response OR mustsubmit clinical practice guidelines on why Nurtec is preferred (must be evidence-based and peer-reviewed) state that they can't tolerate Ubrelvy or have hypersensitivity to it Have an FDA labeled contraindication to Ubrelvy Say that they can't take Ubrelvy due to a reaction, decreased ability to do ADLs at reasonable functional ability, or it would cause mental/physical harm Say patient is already taking Nurtec and it is working and change in therapy would cause harm or notbe expected to work I did amy up 50mg Ubrelvy below for signing if you just wish to switch her to that (10 tabs with option to repeat in 2 hours, 3 refills). Telephone Encounter - Jose Burnham - 06/29/2022 8:54 AM CDT Images from the original note were not included. The patient's health insurer has denied prior authorization for [NURTEC 75MG TABS ]. A quick view of the denial reason is in this communication message. To view the denial letter: Go to Snapshot Go to the purple Medications box Click on the blue Prior Authorizations link Under Denied, click on the blue medication link to open and view the attachment. As the prescriber, your options are: Appeal the decision to the insurer directly (see denial letter for how to appeal). Write a new Rx for an alternative medication therapy. Release the Rx to the pharmacy so the patient can pay out of pocket if they desire. To Release Rx: Open this encounter, go to Meds & Orders, click on the medication, and click the blue ???Release Rx?? button. PLEASE NOTE: If the ???Release Rx?? button is not visible, the Rx has already been released to the pharmacy. If you have questions, please reply via QuickNote to Rina KANG. Thank you, The OPPA Team documented in this encounter Plan of Treatment Not on filedocumented as of this encounter Visit Diagnoses Not on filedocumented in this encounter Additional Health Concerns Assessment Noted Time PHQ-9 Depression Total Score: 11 03/23/2021 2:58 PM CD T documented as of this encounter
--- OUTSIDE RECORDS SUMMARY | 2022-08-03 21:25 | XMS_ITS | Encounter Summary ---
:[address] [facility] Address [address] [place] [address] Care Team Providers Name Role Phone Unavailable Primary Care Provider Unavailable Reason for Referral Outpatient (Routine) - Closed Specialty Diagnoses / Procedures Referred By Contact Refer lake To Contact Neurology Gus Lee M .D. [address] [phone] Referral ID Status Reason Start Date Expiration Date Visits Requ ested Visits Authorized [id number] Closed 03/23/2021 03/23/2022 1 1 Medication Prior Authorization - Authorized Specialty Diagnoses / Procedures Referred By Contact Cori bethea To Contact Gus Lee M .D. [address] [place] [phone] Referral ID Status Reason Start Date Expiration Date Visits V isits Requested Authorized [id number] Authorized 12/25/2020 09/24/2021 1 1 Reason for Visit Outpatient (Routine) - Closed Specialty Diagnoses / Procedures Referred By Contact Cori bethea To Contact Neurology Diagnoses Neuralgia Occipital Headache Daily Migraine Headache Without Aura Robert Araya M.D. [address] [phone] Referral ID Status Reason Start Date Expiration Date Visits Requ ested Visits Authorized [id number] Closed 03/12/2021 03/12/2022 1 1 Encounter Details Date Type Department Care Team Description 03/23/2021 Comprehensive Visit Department of Jesus, Migrain e Headache Chronic (Primary Dx); Neurology in [place], Neuralgia Occip ital; [place], [place] MRosieD. Headache Daily; [address] Migraine [place] [phone] Social History Tobacco Use Types Packs/Day Years [...] or relatives? How often do you attend moravian or Patient refused 2021 restorationism services? Do you belong to any clubs or Yes 06/22/2022 organizations such as moravian groups, unions, fraternal or athletic groups, or [...] pay for the very basics like Not bryson vasquez hard 06/22/2022 food, housing, medical care, and [...] place to sleep or slept in a jail (including now)? Education Answer Date Recorded What is the highest level of school Associate degree: danay briceño, 03/12/2021 you have completed or the highest technical, or vocational p gypsy degree you have received? Sex Assigned at Date Recorded Female 06/22/2022 8:38 AM CDT documented as of this encounter Consult Notes Gus Lee M.D. - 03/23/2021 3:30 PM CDT SUBJECTIVE CHIEF COMPLAINT / REASON FOR VISIT: Ms. Echeverria is a 45 y.o.left handed female who was evaluated today for headaches. HISTORY OF PRESENT ILLNESS: This is a 45-year-old female who was referred by Dr. Araya of here to discuss her headaches. She was accompanied by her partner today. They are from [place], [place]. She started to have typical migraine 8 years ago when she was 38. There was no particular precipitating event. It was typically on the L side, started in the occipital region that spreads toward the entire L side, throbbing pain. At times she had it on both sides. It was associated with N/V, photo andphonophobia. She was in the ED once in a while (once every 2 months) and was managing it with sumatriptan. It was helpful. She was having frequent headaches 2-3 times a week. She was taking frequent sumatriptan, but the headache progressively worsened and changed. Since 4-5 years ago the pain changed and she said the typical migraine feature is gone so she has not used sumatriptan over the past 5 years. She tried sumatriptan for this new type of headache howeverit stopped working. She describes it as a constant deep grinding pain. The pain can spread and involves the entire L side. Sometimes she has pain on the R side as well. Currently she does not think she has prominent, but still has mild photo/phonophobia. The pain is constant, 4/10 at baseline. She has severe headache 3 days per week, 12 days per month on top of the constant pain. Her headaches began to occur about 8 year(s) ago. In describing the headaches today, she says they tend to start unilaterally and tend to start in the occipital region. The quality of the head pain is constant and pressure-like. She estimates the maximal intensity of her headaches to be 10 out of 10 on a scale in which 0 out of ten signifies no pain and 10 out of 10 signifies the worst pain imaginable. The headaches are sometimes associated with nausea, vomiting, sensitivity to light, sensitivity tosound and sensitivity to smells and none of these. She does not experience vertigo. Once established, her headaches are generally worsened by exertion, like going up or down stairs or doing housework, coughing/sneezing/bending over/straining and routine mental activity (e.g. concentrating, reading). Untreated or ineffectively treated headaches may persist for 3 day(s) and the most severe headaches may last up to 2 week(s). Aura: None Patient reports that she does not experience mixing up words or having difficulty expressing thoughts.At times during her headaches and on the same side as the head pain she experiences none of these. 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 She rates the severity and disability of average headaches as 3-severe. Over the past 4 weeks she reports having a headache for 28 days out of 28. Acute medications include Acetaminophen (Tylenol), Excedrin/Aspirin free Excedrin, Naproxen (Naprosyn, Aleve, Anaprox), Ibuprofen (Advil, Motrin), Opiates/opioids, Sumatriptan (Imitrex) and Ketorolac (Toradol) Also uses Naltrexon others I yuliana viera. Preventive medications used include Gabapentin (Neurontin), Topiramate (Topamax) and Botulinum toxin(Botox) Headache Red Flags: No systemic symptoms, no focal neurologic symptoms besides +/- aura, no thunderclap onset, no positional or postural component, no precipitation with Valsalva, and no pattern change. No positional component. Sometimes progressively worsen throughout the day, but sometimes she also has headache in the morning Unilateral cranial autonomic features or restlessness: None Family history of migraine/headache: no Frequency of orthostatic dizziness: Rarely Problem with constipatoin: No Menstrual History: no Hormones every 4-5 months Current Acute Headache Medications: [place] as needed- 12 days per month Marijuana- makes her high, uses it almost daily Advil 10 days per month Current Prophylactic Headache Medications: None Medications used in the past for headache (acute and prophylactic): Sumatriptan does not work for the new headache, has not tried any other triptan ?? Past preventative medications have included Topiramate- felt [...] back, she said it was with steroid. ?? She has had radiofrequency ablation at least twice that she recalls. She has also tried Flexeril helped a bit Tizanidine 4 mg helps a little Zofran- helped with nausea Indomethacin, not sure if it helped She is seeing two Pain providers locally She has discussed an occipital nerve stimulator with her pain care providers at home. She has also discussed occipital nerve decompression surgery. She attempted to get an appointment with Dr. Welsh, who reviewed her chart and said that she would not be a candidate for decompression. She was not ableto meet with Dr. Welsh . She flew to [place] to see Dr. Stern, who said he would do an occipital nerve decompression, but said it had to be matute only in payment, and he would not go through insurance for it. They felt very frustrates they struggled with insurance coverage. She finally got it approved but then they would not take her. Eventually, she did not pursue either occipital decompression or stimulation. Prior non-pharm treatments: She has also tried different diets as well as physical and occupational therapy. Just started biofeedback Psychiatric comorbidities: depression and anxiety Vascular / VTE Risk Factors: None Uses marijuana daily Sleep: Interrupted due to headache. She had meningitis 15 years ago. 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 Otherwise denied any other MVA, trauma, neck manipulation Prior Evaluations (consultations, imaging, and laboratory studies): Last MRI was in 2018 Interpretation of outside images 1. No focal etiology of headache identified. Stable somewhat prominent upwardly convex pituitary without evidence of associated abnormal mass. 2. Mild cervical spondylosis. 3. Thyroid nodules, largest at left thyroid lobe. Thyroid ultrasound would be helpful to further characterize. Past Medical History: Diagnosis Date ??? Anxiety Generalized Disorder 01/26/2014 Generalized anxiety disorder ??? Depressive Disorder 01/26/2014 Depressive Disorder, Not Elsewhere Classified Depressive disorder, not elsewhere classified ??? Migraine Headache 05/14/2020 Current Outpatient Medications on File Prior to Visit Medication Sig Dispense Refill ??? HYDROcodone-acetaminophen (NORCO) 5-325 mg per tablet Take 1 tablet by mouth daily as needed. ??? ibuprofen (ADVIL,MOTRIN) 800 mg tablet Take 800 mg by mouth as needed. ??? LORazepam (ATIVAN) 0.5 mg tablet as needed. ??? medical cannabis oil inhalation as needed. Oil-Vape ??? ondansetron ODT (ZOFRAN-ODT) 4 mg disintegrating tablet Take 4-8 mg by mouth every 8 (eight) hours as needed. ??? phenazopyridine (PYRIDIUM) 200 mg tablet Take 200 mg by mouth as needed. ??? SUMAtriptan (IMITREX) 100 mg tablet Take 50 mg by mouth as needed. TAKE 1 TABLET BY MOUTH AT ONSET OF MIGRAINE. REPEAT NEEDED IN 1-2 HOURS. MAX 2 A DAY. MAX 9 DAYS PER MONTH ??? thyroid, pork, (TRUCK REPAIR SERVICE ESTIMATOR Thyroid) 90 mg tablet Take 90 mg by mouth daily. ??? tiZANidine (ZANAFLEX) 2 mg tablet Take 2 mg by mouth every 8 (eight) hours as needed. ??? tretinoin (RETIN-A) 0.025 % cream as needed. ??? triamcinolone (KENALOG) 0.1 % cream Apply topically as needed. ??? UNABLE TO FIND Take by mouth daily. Progesterone: 300 mg capsule daily No current facility-administered medications on file prior to visit. The MIDAS score today which reflects the past three months was 239. Over the past three months her average subjective pain severity scale was (0 - 10) 7. The following portions of the patient's history were reviewed and updated as appropriate: allergies,current medications, family history, medical history, social history, surgical history and problem list. REVIEW OF SYSTEMS: REVIEW OF SYSTEMS Ms. Echeverria has given her verbal consent to participate in the [facility] Headache registry. OBJECTIVE PHYSICAL EXAM General Exam: The patient is in no acute distress. Psychiatric: The patient is alert, interactive, and has appropriate mood and affect. HEENT: Normocephalic, atraumatic. There is tenderness to paplation of the left occipital notch. Temporal arterial pulses are equal. Good passive and active range of motion of the neck. No rashes, scarsor other skin lesions noted on the head or face. Mental Status: Mental status is normal to conversation. The patient is able to recall the details oftheir medical history without difficulty. Speech is clear. Language is intact. Cranial Nerves: Funduscopic examination reveals no evidence of disc edema. Pupils are equal, round, and reactive to light. Extraocular movements are intact. No nystagmus. Facial symmetry and strength is intact. Facial sensation is intact and equal bilaterally. Symmetrical palate elevation and shouldershrug. Tongue protrudes in the midline. Motor Examination: Normal muscle bulk in upper and lower extremities. No tremor. Full strength in bilateral deltoid, biceps, triceps, wrist flexors/extensors, finger flexors/extensors, hip flexors/extensors, knee flexors/extensors, ankle dorsi and plantar flexors. Reflexes are symmetric and intact in bilateral upper and lower extremities. Plantar response downgoing Sensory Examination: Intact to light touch in the arms and legs. Vibration sensation intact in bilateral upper and lower extremities Coordination: Qennta-pndy-[id number] test: no dysmetria on both sides. Gait: Normal stance. Normal gait. Able to walk on toes, walk on heels and do tandem gait without assistance. No joint hypermobility, Beighton score 0 ASSESSMENT / PLAN Ms. Echeverria's clinical history and neurological examination today suggest that she suffers from the following diagnoses for which I am suggesting the listed diagnostics and therapy: # Chronic migraine # Migraine without aura # Medication overuse headache # Frequent opioid and cannibis use # Significant occipital region pain # Remote history of meningitis 15 years ago, recovered well # History of Cuello's palsy 8 years ago, recovered well The presence of the above comorbid diagnoses increases the complexity of the management of the patient's headaches. It sounded like she developed migraine about 8 years ago which was quite debilitating. It progressedand transformed to chronic migraine with the addition of medication overuse. Fortunately, MRI in 2018 did not show significant structural abnormalities to account for the headache. Treatment Recommendations over the next few months: For further investigation of Ms. Echeverria's headaches or comorbid disorders I am suggesting additional testing which includes: No testing ordered at this visit We discussed that she will try to wean herself off all acute medications, as well as cannabis. We discussed the consequences of medication overuse, which can worsen her headache can increase the risk of developing other adverse health outcomes. Once she wean herself off all those, I recommended to keep herself off all medications for at least 2-3 weeks. Afterwards, she can start following to acute and preventive medications. When she comes back for follow-up in 4-6 months, if she is still struggling with headache, we can arrange imaging at that time. We can consider repeating an MRI of the brain with and without contrast, and potentially MRI of the cervical and thoracic spine at that time. Recommended therapies for acute treatment of headache Rizatriptan ODT 10 mg Take at the onset of headache. Can repeat one dose 1 hour after the first dose. Do not take more than 2 tablets within 24 hours. Do not take it for more than 3 days a week. Triptan is a class of medication designed specifically as a rescue medication for migraine. The potential side effects are tingling/numbness sensation, shortness of breath, and chest tightness. Please let us know if you experienceany of those side effects. Preventative therapies recommended: I recommended Emgality for migraine prevention This is a self-injectable medication within a class of migraine specific medications called the CGRPmonoclonal antibodies. It is 240 mg loading dose for the first month, then 120 mg monthly. Most common side effects include injection site reaction, elevated blood pressure, constipation, andnausea. Other options to consider in the future: Ajovy, Aimovig, Vyepti, Depakote, verapamil, propranolol, other beta blockers Comprehensive pain rehabilitation program We discussed repeating nerve blocks however she is not interested at this point as previously it only helped for a few hours. We also discussed the literature is a about occipital nerve decompression and currently we do not recommend those before we have better evidence and better designed clinical trials. I attempted to answer any questions that she had regarding her headaches and the proposed treatment. Patient education: The patient was ready to learn and had no apparent learning barriers. Their learning preferences include listening. The diagnosis and treatment plans were explained and the patient expressed understanding of the content. Recommend lifestyle modifications including the SEEDS for success in headache management, including Sleep hygiene, Exercising regularly, Eating healthy and regular meals, Drinking water and maintaininga headache Diary, and Stress reduction. Follow up plan: with me in 4-6 months Total visit time 80 minutes including iutr-dz-ujci time, chart reviewed and documentation, with over50% spent counseling with the patient and coordination of care activities described above. documented in this encounter Plan of Treatment Scheduled Referrals Name Type Priority Associated Diagnoses Order [facility] Neurology office Outpatient Referral Routine Expe cted: visit (clinic) 09/23/2021 (Approximate), Expires: 03/23/2024 documented as of this encounter Visit Diagnoses Diagnosis Migraine Headache Chronic - Primary Neuralgia Occipital Headache Daily Migraine Headache Without Aura documented in this encounter Additional Health Concerns Assessment Noted Time PHQ-9 Depression Total Score: 11 03/23/2021 2:58 PM CD T documented as of this encounter
--- OUTSIDE RECORDS SUMMARY | 2022-08-03 21:25 | XMS_ITS | Encounter Summary ---
:1975 Author Organization [facility] [place] [facility] Address [address] [place] [address] Care Team Providers Name Role Phone Unavailable Primary Care Provider Unavailable Encounter Details Date Type Department Care Team Description 11/02/2021 Orders Only Pharmacy Prior Auth Kiara Friedman I. [phone] Social History Tobacco Use Types Packs/Day Years [...] you attend mandaeism or Patient refused 2021 quaker services? Do [...]
--- OUTSIDE RECORDS SUMMARY | 2022-08-03 21:25 | XMS_ITS | Encounter Summary ---
:1975 Author Organization [facility] Address [address] [place] [address] Care Team Providers Name Role Phone Unavailable [...] or relatives? How often do you attend yazidism or Patient refused 2021 bahai services? Do you belong to any clubs or Yes 06/22/2022 organizations such as yazidism groups, unions, fraternal or athletic groups, or [...]
--- OUTSIDE RECORDS SUMMARY | 2022-08-03 21:25 | XMS_ITS | Encounter Summary ---
:[address] [facility] Address [address] [place] [address] Care Team Providers Name Role Phone Unavailable Primary Care Provider Unavailable Encounter Details Date Type Department Care Team Description 03/25/2021 Orders Only [facility] No Contact, Pcp [address] [facility] [place] [address] [place] [address] Social History Tobacco Use Types Packs/Day Years [...] or relatives? How often do you attend sikhism or Patient refused 2021 buddhist services? Do you belong to any clubs or Yes 06/22/2022 organizations such as sikhism groups, unions, fraternal or athletic groups, or [...] place to sleep or slept in a alf (including now)? Education Answer Date Recorded What [...]
--- OUTSIDE RECORDS SUMMARY | 2022-08-03 21:25 | XMS_ITS | Encounter Summary ---
:1975 Author Organization [facility] Address [address] [place] [address] Care Team Providers Name Role Phone Unavailable Primary Care Provider Unavailable Encounter Details Date Type Department Care Team Description 11/03/2021 Orders Only [facility] - Mary Dillon [address] [facility] [place] [phone] Social History Tobacco Use Types Packs/Day Years [...] or relatives? How often do you attend jew or Patient refused 2021 hindu services? Do you belong to any clubs or Yes 06/22/2022 organizations such as jew groups, unions, fraternal or athletic groups, or [...] place to sleep or slept in a prison (including now)? Education Answer Date Recorded What [...]
--- OUTSIDE RECORDS SUMMARY | 2022-08-03 21:25 | XMS_ITS | Encounter Summary ---
:1975 Author Organization [facility] Address [address] [place] [address] Care Team Providers Name Role Phone Unavailable Primary Care Provider Unavailable Encounter Details Date Type Department Care Team Description 06/30/2022 Orders Only Pharmacy Prior Auth Enrique Holt [phone] Social History Tobacco Use Types Packs/Day Years [...] or relatives? How often do you attend oriental orthodox or Patient refused 2021 mandaen services? Do you belong to any clubs or Yes 06/22/2022 organizations such as oriental orthodox groups, unions, fraternal or athletic groups, or [...]
--- OUTSIDE RECORDS SUMMARY | 2022-08-03 21:25 | XMS_ITS | Encounter Summary ---
:1975 Author Organization [facility] Address [address] [place] [address] Care Team Providers Name Role Phone Unavailable Primary Care Provider Unavailable Encounter Details Date Type Department Care Team Description 03/12/2021 Ancillary Procedure Department of Batsheva Araya Occipital; Radiology in Robert Downey M.D. Headache Daily; [place], [place] [address] [facility] Migraine Headache Without Aura [address] [place] [phone] Social History Tobacco Use Types Packs/Day Years [...] or relatives? How often do you attend baptist or Patient refused 2021 adventism services? Do you belong to any clubs or Yes 06/22/2022 organizations such as baptist groups, unions, fraternal or athletic groups, or [...] 9:04 Neuralgia Result s for OUTSIDE MR SPINE (most inpatients AM CDT Occipital this procedure and all Headache Daily are in the outpatients) Migraine results Headache Without section. Aura documented in this encounter Results Interpretation of Outside MR Spine (03/12/2021 9:04 AM CDT) Anatomical Region Laterality Modality Neuroradiology RST LOS, Neuroradiology [facility], N/A Magnetic Resonance Neuroradiology FLA LOS, Spine, [...]
--- OUTSIDE RECORDS SUMMARY | 2022-08-03 21:25 | XMS_ITS | Encounter Summary ---
:1975 Author Organization [facility] Address [address] [place] [address] Care Team Providers Name Role Phone Unavailable Primary Care Provider Unavailable Encounter Details Date Type Department Care Team Description 07/28/2022 Orders Only Department of Neurology in [place], [place] [address] [facility] [address] [place] [address] [place], [place] [phone] (Wo rk) Social History Tobacco Use Types Packs/Day Years [...] or relatives? How often do you attend muslim or Patient refused 2021 latter day services? Do you belong to any clubs or Yes 06/22/2022 organizations such as muslim groups, unions, fraternal or athletic groups, or [...] a [place] [facility] (including now)? Education Answer Date Recorded What [...]
--- OUTSIDE RECORDS SUMMARY | 2022-08-03 21:25 | XMS_ITS | Encounter Summary ---
:1975 Author Organization [facility] Address [address] [place] [address] Care Team Providers Name Role Phone Unavailable Primary Care Provider Unavailable Encounter Details Date Type Department Care Team Description 10/19/2021 Orders Only Pharmacy Prior Auth RO Elsewhere, Pcp [phone] Social History Tobacco Use Types Packs/Day Years [...] you attend confucianism or Patient refused 2021 gnosticist services? Do you belong to any clubs [...]
--- OUTSIDE RECORDS SUMMARY | 2022-08-03 21:25 | XMS_ITS | Encounter Summary ---
:1975 Author Organization [facility] Address [address] [place] [address] Care Team Providers Name Role Phone Unavailable Primary Care Provider Unavailable Encounter Details Date Type Department Care Team Description 07/29/2009 Hospital Encounter HX [facility] [...] or relatives? How often do you attend evangelical or Patient refused 2021 sabianist services? Do you belong to any clubs or Yes 06/22/2022 organizations such as evangelical groups, unions, fraternal or athletic groups, or [...] or slept in a chcf (including now)? Sex Assigned at Date Recorded Female 06/22/2022 8:38 AM CDT documented as of this encounter Medications at Time of Discharge Medication Sig Dispensed Refills Start Date End Date cyanocobalamin (VITAMIN B12) Take by mouth as 0 0 01/21/2008 500 mcg tablet needed. diazePAM (VALIUM) 2 mg Take by mouth as 0 008 tablet needed. documented as of this encounter Miscellaneous Notes Miscellaneous - Kaylah Vaughn - 07/29/2009 12:00 AM CDT [id number] Vivek Garcia [address] [place] [address] July 29, 2009 RE: Medication management Dear Vivek: It has been over four months since your last appointment. If you have continued to use medication prescribed by me you will need to schedule a 20 minute follow- up appointment at . If it has been longer than six months since your last appointment you will need to schedule a 30 minute appointment at the same number. If you are no longer using medications prescribed here, please notify meat . Thank you for your cooperation. I remain: Very truly yours, Virginia Pierce, Ph.D., PACKER MattKS:bonnie Source: [facility] Document Id: [id number] Electronically signed by Conversion, [facility] Bead Wrapper [id number] at 04/03/2017 5:02 PM CDT documented in this encounter Plan of Treatment Not on filedocumented as of this encounter Visit Diagnoses Not on filedocumented in this encounter
--- OUTSIDE RECORDS SUMMARY | 2022-08-03 21:25 | XMS_ITS | Encounter Summary ---
:1975 Author Organization [facility] Address [address] [place] [address] Care Team Providers Name Role Phone Unavailable Primary Care Provider Unavailable Reason for Referral Medication Prior Authorization - Authorized Specialty Diagnoses / Procedures Referred By Contact Refer red To Contact Gus Lee M .D. [address] [place] [phone] Referral ID Status Reason Start Date Expiration Date Visits V isits Requested Authorized [id number] Authorized 04/02/2022 07/01/2023 1 1 Encounter Details Date Type Department Care Team Description 06/30/2022 Orders Only [place] Ramon [address] [place] [address] [place] [phone] [place], [place] [phone] (Wo rk) Social History Tobacco Use Types [...] you attend presybeterian or Patient refused 2021 mosque services? Do you belong to any clubs [...]
--- OUTSIDE RECORDS SUMMARY | 2022-08-03 21:25 | XMS_ITS | Encounter Summary ---
:1975 Author Organization [facility] Address [address] [place] [address] Care Team Providers Name Role Phone Unavailable Primary Care Provider Unavailable Reason for Visit Reason Comments Pre-visit Intake Encounter Details Date Type Department Care Team Description 06/21/2022 Clinical Communication Visit Review in Pr e-visit Intake [place], [place] [address] [place] [address] Social History Tobacco Use Types Packs/Day Years [...] or relatives? How often do you attend taoist or Patient refused 2021 restoration services? Do you belong to any clubs or Yes 06/22/2022 organizations such as taoist groups, unions, fraternal or athletic groups, or [...] place to sleep or slept in a longterm (including now)? Education Answer Date Recorded What [...]
--- OUTSIDE RECORDS SUMMARY | 2022-08-03 21:25 | XMS_ITS | Encounter Summary ---
:1975 Author Organization [facility] Address [address] [place] [address] Care Team Providers Name Role Phone Unavailable Primary Care Provider Unavailable Encounter Details Date Type Department Care Team Description 06/29/2022 Orders Only Pharmacy Prior Auth Jose Teague [phone] Social History Tobacco Use Types Packs/Day Years [...] you attend moravian or Patient refused 2021 religion services? Do you belong to any clubs [...] place to sleep or slept in a intermediate (including now)? Education Answer Date Recorded What [...]
--- OUTSIDE RECORDS SUMMARY | 2022-08-03 21:25 | XMS_ITS | Encounter Summary ---
:[address] [facility] Address [address] [place] [address] Care Team Providers Name Role Phone Unavailable Primary Care Provider Unavailable Encounter Details Date Type Department Care Team Description 02/17/2010 Hospital Encounter HX NO MAPPING Provider, Historical [...] or relatives? How often do you attend episcopalian or Patient refused 2021 taoism services? Do you belong to any clubs or Yes 06/22/2022 organizations such as episcopalian groups, unions, fraternal or athletic groups, or [...]
--- OUTSIDE RECORDS SUMMARY | 2022-08-03 21:25 | XMS_ITS | Encounter Summary ---
:1975 Author Organization [facility] Address [address] [place] [address] Care Team Providers Name Role Phone Unavailable Primary Care Provider Unavailable Reason for Visit Reason Comments Pre-visit Intake Encounter Details Date Type Department Care Team Description 03/10/2021 Clinical Communication Department of [place], Pre- visit Intake Neurology in Robert Downey M.D. [place], [place] [address] [place] [address] [address] [place] [phone] Social History Tobacco Use Types Packs/Day Years [...] or relatives? How often do you attend jewish or Patient refused 2021 synagogue services? Do you belong to any clubs or Yes 06/22/2022 organizations such as jewish groups, unions, fraternal or athletic groups, or [...] place to sleep or slept in a usp (including now)? Sex Assigned at Date Recorded Female 06/22/2022 8:38 AM CDT documented as of this encounter Plan of Treatment Not on filedocumented as of this encounter Visit Diagnoses Not on filedocumented in this encounter
--- OUTSIDE RECORDS SUMMARY | 2022-08-03 21:26 | XMS_ITS | Encounter Summary ---
:1975 Author Organization [facility] Address [address] [place] [address] Care Team Providers Name Role Phone Unavailable Primary Care Provider Unavailable Encounter Details Date Type Department Care Team Description 02/22/2008 Hospital Encounter [facility]X [facility] [...] or relatives? How often do you attend sikh or Patient refused 2021 orthodox services? Do you belong to any clubs or Yes 06/22/2022 organizations such as sikh groups, unions, fraternal or athletic groups, or [...] place to sleep or slept in a retirement (including now)? Sex Assigned at Date Recorded Female 06/22/2022 8:38 AM CDT documented as of this encounter Medications at Time of Discharge Medication Sig Dispensed Refills Start Date End Date cyanocobalamin (VITAMIN B12) Take by mouth as 0 0 01/21/2008 500 mcg tablet needed. documented as of this encounter Plan of Treatment Not on filedocumented as of this encounter Visit Diagnoses Not on filedocumented in this encounter
--- OUTSIDE RECORDS SUMMARY | 2022-08-03 21:26 | XMS_ITS | Encounter Summary ---
:1975 Author Organization [facility] Address [address] [place] [address] Care Team Providers Name Role Phone Unavailable Primary Care Provider Unavailable Encounter Details Date Type Department Care Team Description 01/08/2008 Hospital Encounter HX [facility] [...] you attend nondenominational or Patient refused 2021 gnosticist services? Do [...]
--- OUTSIDE RECORDS SUMMARY | 2022-08-03 21:26 | XMS_ITS | Encounter Summary ---
:1975 Author Organization [facility] Address [address] [place] [address] Care Team Providers Name Role Phone Unavailable Primary Care Provider Unavailable Encounter Details Date Type Department Care Team Description 01/12/2008 Hospital Encounter HX NO MAPPING Provider, Historical [...] or relatives? How often do you attend buddhism or Patient refused 2021 orthodox services? Do you belong to any clubs or Yes 06/22/2022 organizations such as buddhism groups, unions, fraternal or athletic groups, or [...] place to sleep or slept in a fpc (including now)? Sex Assigned at Date Recorded Female 06/22/2022 8:38 AM CDT documented as of this encounter Plan of Treatment Not on filedocumented as of this encounter Visit Diagnoses Not on filedocumented in this encounter
--- OUTSIDE RECORDS SUMMARY | 2022-08-03 21:26 | XMS_ITS | Encounter Summary ---
:1975 Author Organization [facility] Address [address] [place] [address] Care Team Providers Name Role Phone Unavailable Primary Care Provider Unavailable Encounter Details Date Type Department Care Team Description 02/05/2008 Hospital Encounter [facility]X [facility] [...] or relatives? How often do you attend zoroastrianism or Patient refused 2021 moravian services? Do you belong to any clubs or Yes 06/22/2022 organizations such as zoroastrianism groups, unions, fraternal or athletic groups, or [...]
--- OUTSIDE RECORDS SUMMARY | 2022-08-03 21:26 | XMS_ITS | Encounter Summary ---
:1975 Author Organization [facility] Address [address] [place] [address] Care Team Providers Name Role Phone Unavailable Primary Care Provider Unavailable Encounter Details Date Type Department Care Team Description 01/25/2008 Hospital Encounter HX NO MAPPING Provider, Historical [...] you attend muslim or Patient refused 2021 yazidism services? Do you belong to any clubs [...] or slept in a mcfp (including now)? Sex Assigned at Date Recorded [...]
--- OUTSIDE RECORDS SUMMARY | 2022-08-03 21:26 | XMS_ITS | Encounter Summary ---
:1975 Author Organization [facility] Address [address] [place] [address] Care Team Providers Name Role Phone Unavailable Primary Care Provider Unavailable Encounter Details Date Type Department Care Team Description 01/18/2008 - Hospital Encounter HX NO MAPPING Cris Grier V., 01/21/2008 [address] [place] [address] (Wo rk) Social History Tobacco Use Types [...] or relatives? How often do you attend taoism or Patient refused 2021 zoroastrianism services? Do you belong to any clubs or Yes 06/22/2022 organizations such as taoism groups, unions, fraternal or athletic groups, or [...]
--- OUTSIDE RECORDS SUMMARY | 2022-08-03 21:26 | XMS_ITS | Encounter Summary ---
:1975 Author Organization [facility] Address [address] [place] [address] Care Team Providers Name Role Phone Unavailable Primary Care Provider Unavailable Encounter Details Date Type Department Care Team Description 01/12/2008 Hospital Encounter HX [facility] Jannet Ball M.D. [address] [place] [address] (Wo rk) Social History Tobacco Use Types [...] or relatives? How often do you attend worship or Patient refused 2021 yazdanism services? Do you belong to any clubs or Yes 06/22/2022 organizations such as worship groups, unions, fraternal or athletic groups, or [...] or slept in a alf (including now)? Sex Assigned at Date Recorded Female 06/22/2022 8:38 AM CDT documented as of this encounter Miscellaneous Notes Telephone Encounter - Conversion, Historical Provider Ser - 01/12/2008 12:00 AM CDT [id number] , you seen this pt. Yesterday, she had a shot yesterday, still having nausae,light sensitive and having headache, she is wondering if this is [phone] Source: [facility] Document Id: [id number] Telephone Encounter - Conversion, Historical Provider Ser - 01/12/2008 12:00 AM CDT [id number] Calling again. Headache worsening Source: [facility] Document Id: [id number] Telephone Encounter - Robert Hutson M.D. - 01/12/2008 12:00 AM CDT [id number] If she is still having significant headaches that are not resolving, she should be seen again. Please call to inform. Thank You! Source: [facility] Document Id: [id number] Electronically signed by Conversion, [facility] Molecular Biology Director [id number] at 04/04/2017 1:36 AM CDT Telephone Encounter - Conversion, Historical Provider Ser - 01/12/2008 12:00 AM CDT [id number] She is still having headaches. She is taking the vicodin. there. They are going to see if itgoes away in the next couple hours if not they will call for an appt. Source: [facility] Document Id: [id number] documented in this encounter Plan of Treatment Not on filedocumented as of this encounter Visit Diagnoses Not on filedocumented in this encounter
--- OUTSIDE RECORDS SUMMARY | 2022-08-03 21:26 | XMS_ITS | Encounter Summary ---
:1975 Author Organization [facility] Address [address] [place] [address] Care Team Providers Name Role Phone Unavailable Primary Care Provider Unavailable Encounter Details Date Type Department Care Team Description 03/04/2008 Hospital Encounter [facility]X [facility] [...] or relatives? How often do you attend religion or Patient refused 2021 latter-day services? Do you belong to any clubs or Yes 06/22/2022 organizations such as religion groups, unions, fraternal or athletic groups, or [...] place to sleep or slept in a long term (including now)? Sex Assigned at Date Recorded [...]
--- OUTSIDE RECORDS SUMMARY | 2022-08-03 21:26 | XMS_ITS | Encounter Summary ---
:1975 Author Organization [facility] Address [address] [place] [address] Care Team Providers Name Role Phone Unavailable Primary Care Provider Unavailable Encounter Details Date Type Department Care Team Description 01/15/2008 Hospital Encounter [facility] Provider, Oh ema Social History Tobacco Use Types Packs/Day Years [...] you attend advent or Patient refused 2021 caodaism services? Do you belong to any clubs [...] or slept in a prison (including now)? Sex Assigned at Date Recorded Female 06/22/2022 8:38 AM CDT documented as of this encounter Progress Notes Conversion, Historical Provider Ser - 01/15/2008 4:00 PM CDT [id number] DATE OF VISIT: 01/15/2008 CHIEF COMPLAINT: headache SUBJECTIVE: Vivek Garcia is a 32 year old female who presents for evalution of headache. Third visit since . Was seen in on and by myself in on Tuesday. Pain medications given Tuesdayhelped symptoms but awoke with headache again on Tuesday morning. Has been using vicodin given for pain control without relief. Headache is on the back of head and radiates down neck and into right arm with shooting pains in the right arm. Photophobia and phonophobia also present. She does have a history of upper back pain and spasms. Feeling nauseated. No vomiting today. Ate small amount egg at breakfast and sipping fluids. 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 Eyes:negative for, visual blurring, double vision. Ent:negative for, nasal congestion, purulent rhinorrhea, earache, persistent sore throat. Resp:negative for, cough, sputum and dyspnea. Cardiovascular:negative for, palpitations and chest pain. GI:as above. Gu:negative. Musculoskeletal:negative. Neuro:positive for as above. OBJECTIVE: General Appearance: alert and cooperative. Laying on exam table in room with lights out on arrival. Blood pressure 144/90, pulse 60, temperature 99.1, temperature source Temporal. Eyes: PERRLA. EOMs intact. normal lids and conjuntiva. Red reflex present. Ears: normal tympanic membranes and extra-auditory canals. Nose: normal mucosa without discharge. Throat: normal mucosa without any lesions or erythema. Neck: supple without any masses or lymphadenopathy. Normal thyroid. Lungs: normal respiratory effort. Clear to auscultation and percussion throughout. Cardiac: normal S1 and S2 without any murmur, gallops or rubs. No carotid bruits. No edema or cyanosis. Abdomen: bowel sounds present. Soft and non-tender. No palpable masses or hepatosplenomegaly. Neurologic: cranial nerves 2-12 grossly intact. 2+ deep tendon reflexes. No focal deficits noted. Negative romberg. Negative cerebellar signs. Normal rapid alternating movements. ASSESSMENT/PLAN: 784.0 HEADACHE (primary encounter diagnosis) Note: case was discussed with Dr. Amaya who recommends above plan. Plan: 75mg VISTARIL IM and 60mg TORADOL IM. Medication side effects were reviewed. Significant otherto drive. Begin DARVOCET-N 50 50-325 MG OR TABS per [facility] orders. Medication side effects were reviewed. Recheck in 3-4 days with FP provider, sooner if needed. All questions answered. Patient expresses understanding and agrees with plan. Tori Pretty PA-C Source: [facility] RWHXTRANSXRTFSYS Document Id: [id number] documented in this encounter Plan of Treatment Not on filedocumented as of this encounter Visit Diagnoses Not on filedocumented in this encounter
--- OUTSIDE RECORDS SUMMARY | 2022-08-03 21:26 | XMS_ITS | Encounter Summary ---
:1975 Author Organization [facility] Address [address] [place] [address] Care Team Providers Name Role Phone Unavailable Primary Care Provider Unavailable Encounter Details Date Type Department Care Team Description 01/22/2008 Hospital Encounter [facility]X [facility] [...] or relatives? How often do you attend hinduism or Patient refused 2021 voodoo services? Do you belong to any clubs or Yes 06/22/2022 organizations such as hinduism groups, unions, fraternal or athletic groups, or [...] Miscellaneous - Conversion, Historical Provider Ser - 01/22/2008 12:00 AM CDT [id number] Vivek Pedrazadalehayden [address] [place] [phone] January 22, 2008 Dear Vivek: Our records indicate that you missed your appointment with Juan Banda, Brie.SYulia on: January 22, 2008 [facility] has a policy to bill for missed appointments. Appointments that arenot kept need to be cancelled at least 24 hours prior to the appointment to avoid being billed. Unfortunately, your insurance carrier will not cover a no show charge. You have no further appointments scheduled at this time, with Juan Banda, Geovani.C.SYulia. Ifyou would like to schedule another appointment, please call at your earliest convenience at [phone] or, toll-free at . Thank you, [facility] Source: [facility] Document Id: [id number] documented in this encounter Plan of Treatment Not on filedocumented as of this encounter Visit Diagnoses Not on filedocumented in this encounter
--- OUTSIDE RECORDS SUMMARY | 2022-08-03 21:26 | XMS_ITS | Encounter Summary ---
:1975 Author Organization [facility] Address [address] [place] [address] Care Team Providers Name Role Phone Unavailable Primary Care Provider Unavailable Encounter Details Date Type Department Care Team Description 01/01/2008 Hospital Encounter [facility] [...] or relatives? How often do you attend jain or Patient refused 2021 protestant services? Do you belong to any clubs or Yes 06/22/2022 organizations such as jain groups, unions, fraternal or athletic groups, or [...] place to sleep or slept in a fci (including now)? Sex Assigned at Date Recorded Female 06/22/2022 8:38 AM CDT documented as of this encounter Plan of Treatment Not on filedocumented as of this encounter Visit Diagnoses Not on filedocumented in this encounter
--- OUTSIDE RECORDS SUMMARY | 2022-08-03 21:26 | XMS_ITS | Encounter Summary ---
:1975 Author Organization [facility] Address [address] [place] [address] Care Team Providers Name Role Phone Unavailable Primary Care Provider Unavailable Encounter Details Date Type Department Care Team Description 04/01/2008 Hospital Encounter [facility]X [facility] [...] or relatives? How often do you attend islam or Patient refused 2021 samaritan services? Do you belong to any clubs or Yes 06/22/2022 organizations such as islam groups, unions, fraternal or athletic groups, or [...]
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
--- OUTSIDE RECORDS SUMMARY | 2022-08-03 21:26 | XMS_ITS | Encounter Summary ---
:1975 Author Organization [facility] Address [address] [place] [address] Care Team Providers Name Role Phone Unavailable [...] or relatives? How often do you attend bahai or Patient refused 2021 confucianist services? Do you belong to any clubs or Yes 06/22/2022 organizations such as bahai groups, unions, fraternal or athletic groups, or [...] place to sleep or slept in a detention (including now)? Sex Assigned at Date Recorded Female 06/22/2022 8:38 AM CDT documented as of this encounter Progress Notes Conversion, Historical Provider Ser - 01/12/2008 6:00 PM CDT [id number] Quick Note: Reviewed, discussed at visit. Source: [facility] Document Id: [id number] Conversion, Historical Provider Ser - 01/12/2008 6:00 PM CDT [id number] Quick Note: Reviewed, discussed at visit. Source: [facility] UNITHXTRANSXSYS Document Id: [id number] Conversion, Historical Provider Ser - 01/12/2008 6:00 PM CDT [id number] SUBJECTIVE: This is a 32-year-old female who presents for evaluation of headache and nausea. She was seen yesterday by primary care physician, Dr. Hutson, given Toradol and a Medrol Dosepak. Toradol helped mildly, and she went home. She awoke this morning and she still has the headache with significant nausea. She has been vomiting intermittently throughout the day and not able to keep much of anything down. Headache is located across the amish. She has no history of migraines prior to yesterday. She is photophobic and phonophobic. No vision changes. No weakness in extremities. No numbness or tingling. She has been taking the Medrol Dosepak as directed, as well as Vicodin for pain without any significant change in symptoms. Denies fevers, upper respiratory infection symptoms, cough, shortness of breath and diarrhea. PAST MEDICAL HISTORY: Significant only for back pain. No other chronic medical problems. No migraine history. MEDICATIONS: Steroids and Vicodin given yesterday. ALLERGIES: No medication allergies. The patient denies the possibility of . OBJECTIVE: GENERAL: Alert and oriented 32-year-old female. VITAL SIGNS: As charted. In no acute distress. EYES: Pupils equal, round and reactive to light and accommodation. Extraocular movements intact. Lids and conjunctivae normal. EARS: External auditory canals are patent. Tympanic membranes appear normal. NOSE: Nares are patent. MOUTH: Oropharynx is pink with moist mucous membranes. NECK: Supple without adenopathy. LUNGS: Clear to auscultation bilaterally without wheezes or rales. HEART: Cardiac exam reveals regular rate and rhythm without murmur. ABDOMEN: Bowel sounds present, soft, nontender, without masses. NEUROLOGICAL: Cranial nerves II-XII are grossly intact. Normal rapid alternating movements. Normal cerebral function test. Steady gait. Alert and oriented x3. Moves all extremities normally. Reflexes 2+ and equal bilaterally at the knee. LABS: CBC reveals anemia with hemoglobin at 10, otherwise, within normal limits. Sed rate is normal at 12.Head CT without contrast was normal. ASSESSMENT: 0) Headache, suspect migraine. 1) Anemia. PLAN: Given 10 milligrams intramuscularly of morphine, 75 milligrams Vistaril x1 dose each now from nursing staff. She will be monitored for the appropriate interval and then sent home. to drive her.Recommend continuing with [id number] pain medications, as well as Vicodin. Symptoms should be i mproved. Due to her recent anemia, recommend followup with primary care physician within 1-2 weeks, sooner if needed if symptoms not readily improving over the next day. Recommend recheck here at the Urgent Care/emergency room. All questions answered. The patient and expressed understanding and agreement with the above plan. This case was discussed with the emergency room physician, Dr. Cobian, who is in agreement. MINDA Apodaca/sarath Source: [facility] RWHXTRANSXRTFSYS Document Id: [id number] documented in this encounter Plan of Treatment Not on filedocumented as of this encounter Visit Diagnoses Not on filedocumented in this encounter
--- OUTSIDE RECORDS SUMMARY | 2022-08-03 21:26 | XMS_ITS | Encounter Summary ---
:1975 Author Organization [facility] Address [address] [place] [address] Care Team Providers Name Role Phone Unavailable Primary Care Provider Unavailable Encounter Details Date Type Department Care Team Description 01/12/2008 Hospital Encounter HX [facility] Artur Jimenez, R.N. Social History Tobacco Use Types Packs/Day Years [...] or relatives? How often do you attend pentecostalism or Patient refused 2021 temple services? Do you belong to any clubs or Yes 06/22/2022 organizations such as pentecostalism groups, unions, fraternal or athletic groups, or [...] this encounter Miscellaneous Notes Telephone Encounter - BarbaraJoséSabine, R.N. - 01/12/2008 12:00 AM CDT [id number] TELEPHONE TRIAGE ENCOUNTER FORM Date: 01/12/2008 PCP: Cedric Ball MD, MD Patient Name: Vivek Garcia Gender: female :1975 Age: [age] year old Time: 3:53 PM Phone Numbers: [phone] (home) [phone] (work) Pharmacy: [facility] [place] [facility] Presenting Problem: headache Subjective/objective: Patient called to report that she was into clinic yesterday with headache. Patient states the headache has gotten progressively worse since yesterday. Patient denies history of headaches. Patient states it is the worst headache ever. Patient states she is very sensitive to any light. Patient reports neck is very painful on right side. When asked to touch chin to chest it took her several seconds in order to do this due to pain in neck. Pain is a 10/10. Patient states she has been taking two Vicodin every 4 hours with no relief. Patient feels pain is getting worse. Onset: worsening Duration: 2 days Associated Sx: No fever noted and See above note. denies other problems Problem list reviewed: YES Recent History: No. Recent Illness: No Allergies verified: YES Precipitated by: Unknown origin Med list reviewed: YES Alleviated by: N/A Immunosuppressed:NO Conclusion / Primary Problem: Headache Protocol(s) Consulted: Telephone Triage Protocols for Nurses.Carlos Ivey - pgs. [phone] PLAN / INTERVENTION Disposition: Referred to ER - another person to drive Caller verbalizes understanding of disposition? YES Caller agrees to plan? Yes EVALUATION / FOLLOW-UP Advised patient to have another person drive her to ER for immediate assessment. Source: [facility] RWMCHXTRANSXRTFSYS Document Id: [id number] Electronically signed by Conversion, [facility] Data Entry Email Processor [id number] at 04/04/2017 1:36 AM CDT documented in this encounter Plan of Treatment Not on filedocumented as of this encounter Visit Diagnoses Not on filedocumented in this encounter
--- OUTSIDE RECORDS SUMMARY | 2022-08-03 21:26 | XMS_ITS | Encounter Summary ---
:1975 Author Organization [facility] Address [address] [place] [address] Care Team Providers Name Role Phone Unavailable Primary Care Provider Unavailable Encounter Details Date Type Department Care Team Description 01/23/2008 Hospital Encounter [facility]X [facility] Lucinda Gannon ra, R.N. Social History Tobacco Use Types Packs/Day [...] or relatives? How often do you attend tenriism or Patient refused 2021 caodaism services? Do you belong to any clubs or Yes 06/22/2022 organizations such as tenriism groups, unions, fraternal or athletic groups, or [...] place to sleep or slept in a assisted (including now)? Sex Assigned at Date Recorded Female 06/22/2022 8:38 AM CDT documented as of this encounter Medications at Time of Discharge Medication Sig Dispensed Refills Start Date End Date cyanocobalamin (VITAMIN B12) Take by mouth as 0 0 01/21/2008 500 mcg tablet needed. documented as of this encounter Miscellaneous Notes Telephone Encounter - Leyla Gannon R.N. - 01/23/2008 12:00 AM CDT [id number] TELEPHONE TRIAGE ENCOUNTER FORM Date: 01/23/2008 PCP: Cedric Ball MD, MD Patient Name: Vivek Garcia Gender: female :1975 Age: [age] year old Time: 11:47 AM Phone Numbers: [phone] (home) Pharmacy: [facility] [place] ASSESSMENT Presenting Problem: I was just discharged on Tuesday w/ viral menigitis. I am still nauseated, throwing up about one hour after I eat and when I get up I have a headache. I thought I would be better bynow. I didn't know I would continue to have nausea and a headache this long Subjective/objective: as noted above. Has not been taking Compazine q 8 hours as needed, occasionally taking a Darvocet N for headache. Headache begins when up on feet or sitting up. Onset: unchanged Duration: 8 days (first office visit for headache on 01/14) Associated Sx: No fever noted. As noted above Problem list reviewed: YES Recent History: Yes - What was it?: Hospitalized 01/17 - discharged on 01/20 w/ ?viral encephalitis . Recent Illness: Yes - What was it?: see above Allergies verified: N/A or not addressed Precipitated by: Yes - What is it? Continuing illness Med list reviewed: YES Alleviated by: darvocet helps the headache. Immunosuppressed:N/A or not addressed Conclusion / Primary Problem: Nausea and headache when up. Protocol(s) Consulted: Per Nursing Judgement and [phone] PLAN / INTERVENTION Disposition: Home Care advice per protocol, reviewed discharge RX meds and need to take compazine q 8 hours. Take Darvocet 1hour prior to getting up. Clear liquids today, advance diet tomorrow to full liquids if nausea is under control. Call back to update or questions or other symptoms. Caller verbalizes understanding of disposition? YES Caller agrees to plan? Yes EVALUATION / FOLLOW-UP If symptoms worsen in anyway or fail to improve to call for appointment, be seen in Urgent care or Emergency room. Source: [facility] RWHXTRANSXRTFSYS Document Id: [id number] Electronically signed by Manny, [facility] Medical Surgical Tech [id number] at 04/04/2017 1:36 AM CDT documented in this encounter Plan of Treatment Not on filedocumented as of this encounter Visit Diagnoses Not on filedocumented in this encounter
--- OUTSIDE RECORDS SUMMARY | 2022-08-03 21:26 | XMS_ITS | Encounter Summary ---
:1975 Author Organization [facility] Address [address] [place] [address] Care Team Providers Name Role Phone Unavailable Primary Care Provider Unavailable Encounter Details Date Type Department Care Team Description 02/26/2008 Hospital Encounter HX [facility] [...] or relatives? How often do you attend amish or Patient refused 2021 adventism services? Do you belong to any clubs or Yes 06/22/2022 organizations such as amish groups, unions, fraternal or athletic groups, or [...]
--- OUTSIDE RECORDS SUMMARY | 2022-08-03 21:26 | XMS_ITS | Encounter Summary ---
:1975 Author Organization [facility] Address [address] [place] [address] Care Team Providers Name Role Phone Unavailable Primary Care Provider Unavailable Encounter Details Date Type Department Care Team Description 05/27/2008 Hospital Encounter HX [facility] Provider, Historic al Social History [...] or relatives? How often do you attend mormonism or Patient refused 2021 restorationism services? Do you belong to any clubs or Yes 06/22/2022 organizations such as mormonism groups, unions, fraternal or athletic groups, or [...]
--- OUTSIDE RECORDS SUMMARY | 2022-08-03 21:26 | XMS_ITS | Encounter Summary ---
:1975 Author Organization [facility] Address [address] [place] [address] Care Team Providers Name Role Phone Unavailable Primary Care Provider Unavailable Encounter Details Date Type Department Care Team Description 01/18/2008 Hospital Encounter HX [facility] Jannet Ball M.D. [address] [place] [address] (Wo rk) Social History Tobacco [...] or relatives? How often do you attend sabianist or Patient refused 2021 adventism services? Do you belong to any clubs or Yes 06/22/2022 organizations such as sabianist groups, unions, fraternal or athletic groups, or [...] place to sleep or slept in a penitentiary (including now)? Sex Assigned at Date Recorded Female 06/22/2022 8:38 AM CDT documented as of this encounter Progress Notes Cedric Ball M.D. - 01/18/2008 10:00 AM CDT [id number] Chief Complaint: Chief Complaint Patient presents with Headache has had headache for 1 week Pain right shoulder and back into right arm 103.9 fever last night. patient was sent to ER for spinal tap. Source: [facility] RWMCHXTRANSXRTFSYS Document Id: [id number] Electronically signed by Conversion, [facility] Director Of Financial Planning [id number] at 04/04/2017 1:36 AM CDT documented in this encounter Plan of Treatment Not on filedocumented as of this encounter Visit Diagnoses Not on filedocumented in this encounter
--- OUTSIDE RECORDS SUMMARY | 2022-08-03 21:26 | XMS_ITS | Encounter Summary ---
:1975 Author Organization [facility] Address [address] [place] [address] Care Team Providers Name Role Phone Unavailable Primary Care Provider Unavailable Encounter Details Date Type Department Care Team Description 01/18/2008 Hospital Encounter HX NO MAPPING Provider, Historical [...] or relatives? How often do you attend anabaptist or Patient refused 2021 taoist services? Do you belong to any clubs or Yes 06/22/2022 organizations such as anabaptist groups, unions, fraternal or athletic groups, or [...] of this encounter Miscellaneous Notes Miscellaneous - Cris Grier M.D. - 01/18/2008 2:35 PM CDT [id number] [facility] [address] [facility], [address] Name: Vivek Garcia Birthdate: 1975 [facility] Admission Date: 01/18/08 Allergy: No known allergies PHYSICIAN's DISCHARGE / TRANSFER ORDERS DISCHARGE TO: Home MEDICATIONS: PHARMACY CONSULT: NO Medications as of 01/21/2008: Current outpatient prescriptions Medication Sig VICODIN 5-500 MG OR TABS ONE TO TWO TABLETS EVERY 4 TO 6 HOURS NEEDED FOR PAIN XANAX 0.25 MG OR TABS 1 TABLET 3 TIMES DAILY prn anxiety CLONAZEPAM 0.5 MG OR TABS 1 at hs prn IBUPROFEN 800 MG OR TABS one 3 times a day with food as needed for pain COMPAZINE 10 MG OR TABS 1 TABLET 3 TIMES DAILY NEEDED for nausea NIFEREX-150 150-50 MG OR CAPS one a day-start when nausea gone [facility] VITAMIN B12 500 MCG OR TABS one a day MULTIVITAMINS OR TABS ONE DAILY DARVOCET-N 50 50-325 MG OR TABS 1-2 TABLET EVERY 4 HOURS NEEDED not to exceed 8 tablets in 24 hours LEXAPRO 10 MG OR TABS 1 TABLET DAILY Patient's prescription was printed off to be given to the patient-the vicodin and the b12 I faxed in niferex, ibuprofen, compazine to [facility]. Will dispense meds for today ADMITTING DIAGNOSIS: dehydration Viral syndrome Headache Iron deficiency anemia DISCHARGE DIAGNOSIS: dehydration Viral syndrome with fever Severe headache Iron deficiency anemia Depression/anxiety DIET: regular HOSPITAL COURSE: Complications: None. Vivek Garcia was admitted with fever, headaches nausea and vomiting, dehydration. Lab work , mri head, mra and lumbar puncture were normal. She impoved and was discharged. Lyme titer and WEst N ile titer are pending. CONDITION ON DISCHARGE: Stable LEVEL OF ACTIVITY: up as tolerated APPOINTMENTS: Primary Physician in 2-3 weeks REFERRALS: NONE OTHER ORDERS/COMMENTS: None: DISCHARGE SUMMARY DICTATED?: See Hospital Course information above. PROCEDURE(S) PERFORMED: MRI of Head, mra Lumbar Puncture Time spent in discharging patient - more than [address] Danielle Grier MD 01/21/2008 Source: [facility] RWMCHXTRANSXRTFSYS Document Id: [id number] Electronically signed by Conversion, [facility] Secondary English Teacher [id number] at 04/04/2017 1:36 AM CDT Miscellaneous - Conversion, Historical Provider Ser - 01/18/2008 2:35 PM CDT [id number] [facility] [address] [facility], [address] Name: Vivek Garcia Birthdate: 1975 SSN: [id number] [facility] Allergy: No known allergies Discharge Date: 01/21/2008 Discharge Instructions Discharged to: Home Activities: -Up as tolerated Medications: Medication Sig VICODIN 5-500 MG TABS ONE TO TWO TABLETS EVERY 4 TO 6 HOURS NEEDED FOR PAIN XANAX 0.25 MG TABS 1 TABLET 3 TIMES DAILY as needed for anxiety CLONAZEPAM 0.5 MG TABS 1 at bedtime as needed IBUPROFEN 800 MG TABS one 3 times a day with food as needed for pain COMPAZINE 10 MG TABS 1 TABLET 3 TIMES DAILY NEEDED for nausea NIFEREX-150 150-50 MG CAPS (iron) one a day-start when nausea gone [facility] VITAMIN B12 500 MCG TABS one a day MULTIVITAMINS TABS ONE DAILY DARVOCET-N 50 50-325 MG TABS 1-2 TABLET EVERY 4 HOURS NEEDED not to exceed 8 tablets in 24 hours LEXAPRO 10 MG TABS 1 TABLET DAILY Discharge Vital Signs: Temp: 98.2 degrees Fahrenheit; B/P: 111/62mHg; Pulse: 68; Respiration: 16. Pain Management: Most recent pain medication toradol; Dose: 30 mg: Route: iv; Time last given: 10:15am. Discharge Pain Score: 4/10 . Time the discharge pain score was documented 10:15. AM Nursing Instructions: Lyme and West Nile titers are pending, request results at follow up appt. If not called by clinic nurse. Follow up sooner if symptoms worsen or return. Patient Education: Tylenol limited to 3 grams daily, part of Vicodin tabs. Diet: regular Appointment(s): To see Dr. Ball on January 31 at 10:00am for your hospital follow-up appointment. I have all of my belongings . I understand my discharge instructions. My medications were reviewed with me . Patient's Signature: Nurse Discharging this patient signature: RN Signature & Date: Jessica Anders RN Date: 01/21/2008 Please see paper chart for additional discharge documentation info: (time, how & by). Source: [facility] RWHXTRANSXRTFSYS Document Id: [id number] documented in this encounter Plan of Treatment Not on filedocumented as of this encounter Visit Diagnoses Not on filedocumented in this encounter
--- OUTSIDE RECORDS SUMMARY | 2022-08-03 21:26 | XMS_ITS | Encounter Summary ---
:1975 Author Organization [facility] Address [address] [place] [address] Care Team Providers Name Role Phone Unavailable Primary Care Provider Unavailable Encounter Details Date Type Department Care Team Description 04/05/2008 Hospital Encounter [facility] [...] you attend faith or Patient refused 2021 denominational services? Do you belong to any clubs [...] or slept in a longterm (including now)? Sex Assigned at Date Recorded [...] Miscellaneous - Conversion, Historical Provider Ser - 04/05/2008 12:00 AM CDT [id number] LETTER Vivek Garcia [address] [place] [id number] April 05, 2008 Dear Vivek: Our records indicate that you recently cancelled your appointment with Sana BandaSYulia, Geovani.C.S.W.. Thank you for notifying our office. You have no further appointments scheduled at this time. If you would like to schedule another appointment, please call at your earliest convenience at or, toll free at . We look forward to hearing from you. Thank you, [facility] Source: [facility] Document Id: [id number] documented in this encounter Plan of Treatment Not on filedocumented as of this encounter Visit Diagnoses Not on filedocumented in this encounter
--- OUTSIDE RECORDS SUMMARY | 2022-08-03 21:26 | XMS_ITS | Encounter Summary ---
:1975 Author Organization [facility] Address [address] [place] [address] Care Team Providers Name Role Phone Unavailable Primary Care Provider Unavailable Encounter Details Date Type Department Care Team Description 12/19/2007 Hospital Encounter HX [facility] [...] you attend scientologist or Patient refused 2021 protestant services? Do [...]
--- OUTSIDE RECORDS SUMMARY | 2022-08-03 21:26 | XMS_ITS | Encounter Summary ---
:1975 Author Organization [facility] Address [address] [place] [address] Care Team Providers Name Role Phone Unavailable Primary Care Provider Unavailable Encounter Details Date Type Department Care Team Description 02/19/2008 Hospital Encounter [facility]X [facility] [...] you attend baptist or Patient refused 2021 jew services? Do you belong to any clubs [...]
--- OUTSIDE RECORDS SUMMARY | 2022-08-03 21:26 | XMS_ITS | Encounter Summary ---
:1975 Author Organization [facility] Address [address] [place] [address] Care Team Providers Name Role Phone Unavailable Primary Care Provider Unavailable Encounter Details Date Type Department Care Team Description 03/16/2007 Hospital Encounter HX [facility] Provider, Historic al Social History Tobacco [...] or relatives? How often do you attend denominational or Patient refused 2021 latter-day services? Do you belong to any clubs or Yes 06/22/2022 organizations such as denominational groups, unions, fraternal or athletic groups, or [...] or slept in a intermediate (including now)? Sex Assigned at Date Recorded Female 06/22/2022 8:38 AM CDT documented as of this encounter Plan of Treatment Not on filedocumented as of this encounter Visit Diagnoses Not on filedocumented in this encounter
--- OUTSIDE RECORDS SUMMARY | 2022-08-03 21:26 | XMS_ITS | Encounter Summary ---
:1975 Author Organization [facility] Address [address] [place] [address] Care Team Providers Name Role Phone Unavailable Primary Care Provider Unavailable Encounter Details Date Type Department Care Team Description 01/26/2008 Hospital Encounter HX [facility] Jannet Ball M.D. [address] [place] [address] (Wo rk) Social History Tobacco [...] or relatives? How often do you attend mu-ism or Patient refused 2021 mandaeism services? Do you belong to any clubs or Yes 06/22/2022 organizations such as mu-ism groups, unions, fraternal or athletic groups, or [...] place to sleep or slept in a snf (including now)? Sex Assigned at Date Recorded Female 06/22/2022 8:38 AM CDT documented as of this encounter Medications at Time of Discharge Medication Sig Dispensed Refills Start Date End Date cyanocobalamin (VITAMIN B12) Take by mouth as 0 0 01/21/2008 500 mcg tablet needed. documented as of this encounter Miscellaneous Notes Telephone Encounter - Chari Rock L.P.N. - 01/26/2008 12:00 AM CDT [id number] She would like another option for her muscle spasm pain in upper back/shoulder.Prefers not to use the Darvocet and Vicodin and would like more of a muscle relaxer as oposed to pain meds. [employer] #[phone] Source: [facility] Document Id: [id number] Electronically signed by Conversion, [facility] Delimber Operator [id number] at 04/04/2017 1:36 AM CDT Telephone Encounter - Daniel Murphy M.D. - 01/26/2008 12:00 AM CDT [id number] This prescription has been authorized and faxed to [facility]. Please contact the patient with this information if necessary. Thank you. Source: [facility]XTRANSXRTFYouxinpai Document Id: [id number] Electronically signed by Conversion, [facility] Delimber Operator [id number] at 04/04/2017 1:36 AM CDT Telephone Encounter - Conversion, Historical Provider Ser - 01/26/2008 12:00 AM CDT [id number] Left message on her cell phone. Source: [facility]RT[facility] Document Id: [id number] documented in this encounter Plan of Treatment Not on filedocumented as of this encounter Visit Diagnoses Not on filedocumented in this encounter
--- OUTSIDE RECORDS SUMMARY | 2022-08-03 21:26 | XMS_ITS | Encounter Summary ---
:1975 Author Organization [facility] Address [address] [place] [address] Care Team Providers Name Role Phone Unavailable Primary Care Provider Unavailable Encounter Details Date Type Department Care Team Description 01/11/2008 Hospital Encounter [facility] Robert Hutson M.D. [address] [place] [address] (Wo rk) Social History Tobacco [...] or relatives? How often do you attend spiritism or Patient refused 2021 baptism services? Do you belong to any clubs or Yes 06/22/2022 organizations such as spiritism groups, unions, fraternal or athletic groups, or [...] documented as of this encounter Progress Notes Robert Hutson M.D. - 01/11/2008 11:00 AM CDT [id number] Subjective: Vivek is a 32 year old female presenting with back/shoulder pain: Location: right upper thoracic between spine and shoulder blades Quality: stabbing pain Severity: moderate to severe Duration: 3 weeks Timing: subacute onset without known trigger and persistant/worsening Modifying Factors: not better with over the counter meds Associated Symptoms: now with migraine headache the past day, throbbing, retro- ortbital with nausea and photophobia Past Medical History: Patient Active Problem List Diagnoses Code SUPERVIS OTHER NORMAL PREG V22.1 DEPRESSIVE DISORDER NEC 311 THRT RAJAN LABOR-ANTEPART 644.03 ADJUSTMENT REACTION NOS 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 V61.10 GENERALIZED ANXIETY DIS 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, 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 625.2 ACUTE STRESS REACT NEC 308.3 Social History: History Substance Use Topics Tobacco Use: Quit Quit date: 08/03/2001 08/03/04 no second hand smoke at home or work Alcohol Use: No Medications: Current outpatient prescriptions Medication Sig LEXAPRO 10 MG OR TABS 1 TABLET DAILY TYLENOL/CODEINE #3 300-30 MG OR TABS 1 OR 2 TABLETS EVERY 4 TO 6 HOURS NEEDED MEDROL (VLADIMIR) 4 MG OR TABS DIRECTED VICODIN 5-500 MG OR TABS ONE TO TWO TABLETS EVERY 4 TO 6 HOURS NEEDED FOR PAIN XANAX 0.25 MG OR TABS 1 TABLET 3 TIMES DAILY CLONAZEPAM 0.5 MG OR TABS 1 at hs 1/2 Allergies: Allergies Allergen Reactions No Known Allergies Review of Systems: Constitutional: negative CV: negative Respitatory: negative Neuro: negative for, syncope, stroke, seizures, paralysis, numbness or tingling of hands and numbness or tingling of feet Other than noted above, all other pertinant system review is unremarkable. Objective: BP 122/62 Pulse 60 Wt 162 lbs 8.0 oz (73.7kg) General: Patient is well nourished, alert and oriented in moderate acute distress lying in the room with sunglasses on. Eyes: normal lids and conjunctiva. Ears: normal tympanic membranes and extra-auditory canals. Throat: normal mucosa without any lesions or erythema. Neck: supple without any masses or lymphadenopathy. Normal thyroid. Lungs: normal respiratory effort. Clear to auscultation and percussion throughout. Cardiac: normal S1 and S2 without any murmur, gallops or rubs. No carotid bruits. No edema or cyanosis. Neurologic: cranial nerves 2-12 grossly intact. 2+ deep tendon reflexes. No focal deficits noted. Back: point tenderness localizing to upper right rib/vertebral junction with some spasms of upper trap muscles Assessment/Plan: SOMAT DYSFUNC RIB CAGE - rib/vertebral pain for 3 weeks - set up for consult to physical therapy - prn vicodin for severe pain - start medrol CLASSICAL MIGRAINE INTRACTABLE - seems triggered by the thoracic pain - toradol given to abort today - medrol should also help keep this quiescent Source: [facility]XTRANSXRTFS[facility] Document Id: [id number] documented in this encounter Plan of Treatment Not on filedocumented as of this encounter Visit Diagnoses Not on filedocumented in this encounter
--- OUTSIDE RECORDS SUMMARY | 2022-08-03 21:26 | XMS_ITS | Encounter Summary ---
:1975 Author Organization [facility] Address [address] [place] [address] Care Team Providers Name Role Phone Unavailable Primary Care Provider Unavailable Encounter Details Date Type Department Care Team Description 01/11/2008 Hospital Encounter [facility] Lucinda Gannon ra, R.N. Social History [...] you attend taoist or Patient refused 2021 hindu services? Do [...] Telephone Encounter - Leyla Gannon R.N. - 01/11/2008 12:00 AM CDT [id number] Patient is calling to request an appointment for today for a pinched nerve in her neck. She statesthat the pain is now shooting up her head and down into her Right arm. She states that she has been having symptoms for 3 weeks but much worse yesterday. Scheduled w/ Dr Hutson this a.m. Source: [facility] RWMCHXTRANSXRTFSYS Document Id: [id number] Electronically signed by Manny, [facility] Valet Service Attendant [id number] at 04/04/2017 1:36 AM CDT documented in this encounter Plan of Treatment Not on filedocumented as of this encounter Visit Diagnoses Not on filedocumented in this encounter
--- OUTSIDE RECORDS SUMMARY | 2022-08-03 21:26 | XMS_ITS | Encounter Summary ---
:1975 Author Organization [facility] Address [address] [place] [address] Care Team Providers Name Role Phone Unavailable [...] you attend bahai or Patient refused 2021 hindu services? Do [...] or slept in a half-way (including now)? Sex Assigned at Date Recorded [...]
--- OUTSIDE RECORDS SUMMARY | 2022-08-03 21:27 | XMS_ITS | Encounter Summary ---
:1975 Author Organization [facility] Address [address] [place] [address] Care Team Providers Name Role Phone Unavailable Primary Care Provider Unavailable Encounter Details Date Type Department Care Team Description 12/18/2004 Hospital Encounter HX [facility] INTERNMED Bharat Luis M.D. [address] [place] [phone] (Wo rk) Social History Tobacco [...] you attend mandaeism or Patient refused 2021 mandaeism services? Do [...] documented as of this encounter Progress Notes Marvel Luis M.D. - 12/18/2004 11:00 AM CST [id number] Addended by: MARVEL LUIS on: 12/18/2004 5:07:37 PM Modules accepted: Orders Source: [facility] Document Id: [id number] Electronically signed by Conversion, [facility] [place] [employer] Repairer [id number] at 04/04/2017 9:38 PM CDT Marvel Luis M.D. - 12/18/2004 11:00 AM CST [id number] Ms. Juwan Garcia is a 29 year old year old female . No chief complaint on file. 1. Spots on face-longstanding. 2. drinks, she is interested in getting him into counselling. Denies domestic violence. 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 Labs and test results were reviewed in [facility]. No other complaints The history section was reviewed in [email or web address]. Patient Active Problem List: SUPERVIS OTHER NORMAL PREG[V22.1] DEPRESSIVE DISORDER NEC[311] THRT RAJAN LABOR-ANTEPART[644.03] Previous Medical History: DEPRESSIVE DISORDER NEC HUMAN PAPILLOMAVIRUS NOS 1992 Review of patient's past surgical history indicates: COLPOSCOPY,LOOP ELECTRD CERVIX EXCIS 1992 DESIGN CUSTOM BREAST IMPLANT 1992 Comment: Breast implants COLPOSCOPY,BX CERVIX/ENDOCERV CURR 01/23/03 FULL ROUT OBSTE CARE,VAGINAL DELIV 11/18/04 Comment: baby girl Immunization History: Influenza 09/16/2004 ALLERGIES: No Known Allergies Tobacco Use: Quit Quit date: 08/03/2001 Comment: 08/03/04 no second hand smoke at home or work Alcohol Use: No Family History: Alzheimers No family hx of Cancer Maternal Grandmother Comment: breast Cancer Father Comment: skin Diabetes Maternal Grandmother Heart Paternal Grandfather Comment: hd Thyroid Mother Comment: graves Colon CA No family hx of EXAM: PHYSICAL EXAMINATION Vital sign: LMP OB (12/04/04) Ms. Juwan Garcia is a 29 year old year old female. GENERAL APPEARANCE: The patient is not in acute distress. FACE: small comedones nasolabial area, mild acne <A> 706.1 ACNE NEC (primary encounter diagnosis) <P> BENZOYL PEROXIDE-ERYTHROMYCIN 5-3 % EX GEL Gave her list of counselling services available in the area, including [employer]. She will makethe necessary phone call herself. Return if symptoms worsen or fail to improve. The assessment and plan were discussed with the patient and all questions were answered.Please see epic summary below for instructions given to patient Marvel Luis MD December 18, 2004 Source: [facility] RWMCHXTRANSXRTFSYS Document Id: [id number] Electronically signed by Manny, [facility] [place] [employer] Repairer [id number] at 04/04/2017 9:38 PM CDT documented in this encounter Plan of Treatment Not on filedocumented as of this encounter Visit Diagnoses Not on filedocumented in this encounter
--- OUTSIDE RECORDS SUMMARY | 2022-08-03 21:27 | XMS_ITS | Encounter Summary ---
:1975 Author Organization [facility] Address [address] [place] [address] Care Team Providers Name Role Phone Unavailable Primary Care Provider Unavailable Encounter Details Date Type Department Care Team Description 03/26/2005 Hospital Encounter HX [facility] Oscar, Robert Miranda Ed.D., L.P. Social History Tobacco Use Types Packs/Day Years [...] or relatives? How often do you attend episcopal or Patient refused 2021 methodist services? Do you belong to any clubs or Yes 06/22/2022 organizations such as episcopal groups, unions, fraternal or athletic groups, or [...]
--- OUTSIDE RECORDS SUMMARY | 2022-08-03 21:27 | XMS_ITS | Encounter Summary ---
:1975 Author Organization [facility] Address [address] [place] [address] Care Team Providers Name Role Phone Unavailable Primary Care Provider Unavailable Encounter Details Date Type Department Care Team Description 03/12/2005 Hospital Encounter HX [facility] [...] or relatives? How often do you attend roman catholic or Patient refused 2021 worship services? Do you belong to any clubs or Yes 06/22/2022 organizations such as roman catholic groups, unions, fraternal or athletic groups, or [...]
--- OUTSIDE RECORDS SUMMARY | 2022-08-03 21:27 | XMS_ITS | Encounter Summary ---
:1975 Author Organization [facility] Address [address] [place] [address] Care Team Providers Name Role Phone Unavailable Primary Care Provider Unavailable Encounter Details Date Type Department Care Team Description 07/12/2006 Hospital Encounter HX NO MAPPING Provider, Historical [...] you attend faith or Patient refused 2021 presybeterian services? Do [...] place to sleep or slept in a halfway (including now)? Sex Assigned at Date Recorded Female 06/22/2022 8:38 AM CDT documented as of this encounter Plan of Treatment Not on filedocumented as of this encounter Visit Diagnoses Not on filedocumented in this encounter
--- OUTSIDE RECORDS SUMMARY | 2022-08-03 21:27 | XMS_ITS | Encounter Summary ---
:1975 Author Organization [facility] Address [address] [place] [address] Care Team Providers Name Role Phone Unavailable Primary Care Provider Unavailable Encounter Details Date Type Department Care Team Description 01/14/2006 Hospital Encounter HX [facility] Ra matt Strauss, P.A.-C. [address] [place] [address] (Wo rk) Social History Tobacco [...] you attend anabaptist or Patient refused 2021 advent services? Do you belong to any clubs [...]
--- OUTSIDE RECORDS SUMMARY | 2022-08-03 21:27 | XMS_ITS | Encounter Summary ---
:1975 Author Organization [facility] Address [address] [place] [address] Care Team Providers Name Role Phone Unavailable Primary Care Provider Unavailable Encounter Details Date Type Department Care Team Description 04/12/2005 Hospital Encounter [facility]X [facility] [...] or relatives? How often do you attend judaism or Patient refused 2021 mandaen services? Do you belong to any clubs or Yes 06/22/2022 organizations such as judaism groups, unions, fraternal or athletic groups, or [...]
--- OUTSIDE RECORDS SUMMARY | 2022-08-03 21:27 | XMS_ITS | Encounter Summary ---
:1975 Author Organization [facility] Address [address] [place] [address] Care Team Providers Name Role Phone Unavailable Primary Care Provider Unavailable Encounter Details Date Type Department Care Team Description 06/24/2005 Hospital Encounter HX [facility] Ra matt Strauss, P.A.-C. [address] [place] [address] (Wo rk) Social History Tobacco [...] or relatives? How often do you attend catholic or Patient refused 2021 temple services? Do you belong to any clubs or Yes 06/22/2022 organizations such as catholic groups, unions, fraternal or athletic groups, [...] Progress Notes Conversion, Historical Provider Ser - 06/24/2005 9:50 AM CDT [id number] Addended by: GABRIEL REID on: 06/25/2005 2:37:06 PM Modules accepted: Orders Source: [facility] Document Id: [id number] Cathy Strauss P.A.-C. - 06/24/2005 9:50 AM CDT [id number] SUBJECTIVE: Vivek is a 30 year old female who presents with dysuria and hematuria that began today. She has hadprevious UTIs. No fever or abdominal pain. OBJECTIVE: Blood pressure 102/60, pulse 80, temperature 98.7, temperature source Tympanic, weight 173 lbs 1.6 oz (78.5 kg), last menstrual period OB (12/04/04). UA shows 50-100 RBCs and 25-50 WBCs ASSESSMENT: UTI PLAN: per orders. Source: [facility] Document Id: [id number] Electronically signed by Conversion, [facility] Reconstructive Dentist [id number] at 04/04/2017 11:42 PM CDT documented in this encounter Plan of Treatment Not on filedocumented as of this encounter Visit Diagnoses Not on filedocumented in this encounter
--- OUTSIDE RECORDS SUMMARY | 2022-08-03 21:27 | XMS_ITS | Encounter Summary ---
:1975 Author Organization [facility] Address [address] [place] [address] Care Team Providers Name Role Phone Unavailable Primary Care Provider Unavailable Encounter Details Date Type Department Care Team Description 03/08/2005 Hospital Encounter HX [facility] [...] you attend mormonism or Patient refused 2021 adventist services? Do you belong to any clubs [...]
--- OUTSIDE RECORDS SUMMARY | 2022-08-03 21:27 | XMS_ITS | Encounter Summary ---
:1975 Author Organization [facility] Address [address] [place] [address] Care Team Providers Name Role Phone Unavailable Primary Care Provider Unavailable Encounter Details Date Type Department Care Team Description 02/28/2005 Hospital Encounter HX NO MAPPING Kiana Morejon M.D. Social History Tobacco Use Types Packs/Day Years [...] you attend presybeterian or Patient refused 2021 anabaptism services? Do [...] or slept in a fdc (including now)? Sex Assigned at Date Recorded Female 06/22/2022 8:38 AM CDT documented as of this encounter Plan of Treatment Not on filedocumented as of this encounter Visit Diagnoses Not on filedocumented in this encounter
--- OUTSIDE RECORDS SUMMARY | 2022-08-03 21:27 | XMS_ITS | Encounter Summary ---
:1975 Author Organization [facility] Address [address] [place] [address] Care Team Providers Name Role Phone Unavailable Primary Care Provider Unavailable Encounter Details Date Type Department Care Team Description 09/21/2006 Hospital Encounter HX [facility] [...] attend roman catholic or Patient refused 2021 judaism services? Do you belong to any clubs [...] Miscellaneous - Conversion, Historical Provider Ser - 09/21/2006 12:00 AM HORSE WRANGLER [id number] LETTER Vivek Garcia [address] [address] September 21, 2006 Dear Vivek: Thank you for requesting an appointment for services at the [facility] Behavioral Health Department. Initial 45 minute appointments have been scheduled in our Psychology Department with: Virginia Pierce, Ph.D., Thursday, October 12, 2006 at 11:00 AM located on the 3rd floor: [facility] at [address] If the above scheduled appointment is not convenient, please contact our office as soon as possible at or to reschedule. You need to contact your insurance company prior to your appointment for a possible prior authorization to avoid delays in payment or you may be responsible for payment. There will be a number on your insurance card for you to call. Please bring the authorization number that the insurance company gives you, to your first appointment.It is also important that you bring along all of your insurance information at the time of your visit so that billing can be handled promptly. When you make an appointment with our department, time is set aside for you. If you fail to arrive for this appointment, it is time that could have been used by other patients requesting these services. Therefore, if you are unable to keep this appointment, please contact our office prior to your appointment. If you do not contact us at least 24 hours prior to your appointment, you will be billed a Late Cancellation/ No Show Fee. Your insurance company will not reimburse for this fee; therefore, thecharge would be billed directly to you. The forms enclosed with this letter should be completed and returned to us prior to your scheduled appointment. This would include all forms on the right side of the folder. We trust that your experience with us will be a pleasant and worthwhile one. Sincerely, [facility] Contact Information September 21, 2006 Intake done by: Tess EMR#: [id number] NAME: Vivek Garcia SSN: [id number] : 1975 Age: [age] year old Sex: female Spouse/ S.O.: - Parent/Guardian: - ADDRESS: [address] [place] [address] Phone Numbers: [phone] (home) Phone Contact: Home: Yes Messages: Yes Work: No Messages: No Written Contact: Home: Yes Work: No Prior Contact with Psychology? No Date: - Doctor seen: NA [place] Type: Medicaid Insurance Information Date Verified: W/: Insurance Company: Policy Phone # Policy Lerner Policy # Group # Effective Date OV CoPay $ Deductible Pre-authorization ? Y / N # O. P. Mental Health Coverage Visits Allowed Psychological Testing ?. Psychiatry Md. Mgmt? Eating Disorders? Excluded Dx's Epic Note date Court Ordered/Litigation No Clean Up Person/Agency Contract Graphic Designer Address City/ST Zip Phone # Referral Information Caller: self Reason: Md swartz Referred by: Diego Location: Primary Care Physician: Cedric Ball MD, MD Medication: Xanax Dosage: - Appointments Appt. With: Virginia Pierce, Ph.D., INVENTORY PLANNER Initial: we oct 12 a F/U: - 3rd.: - Intake Packet Sent on Wait List No Source: [facility] RWHXTRANSXRTFSYS Document Id: [id number] Miscellaneous - Conversion, Historical Provider Ser - 09/21/2006 12:00 AM HORSE WRANGLER [id number] LETTER Vivek Garcia [address] [address] October 07, 2006 MR# [id number] Dear Vivek Garcia, APPOINTMENT REMINDER: Our record indicates that it is time for you to be seen for an office visit with Cedric Ball M.D. You may call our office at [phone] to schedule an appointment for an Annual Physical. Please disregard this notice if you have already made an appointment. Sincerely, [facility] Source: [facility] Document Id: [id number] documented in this encounter Plan of Treatment Not on filedocumented as of this encounter Visit Diagnoses Not on filedocumented in this encounter
--- OUTSIDE RECORDS SUMMARY | 2022-08-03 21:27 | XMS_ITS | Encounter Summary ---
:1975 Author Organization [facility] Address [address] [place] [address] Care Team Providers Name Role Phone Unavailable Primary Care Provider Unavailable Encounter Details Date Type Department Care Team Description 11/22/2006 Hospital Encounter [facility]X [facility] Provider, Histor ical Social History Tobacco Use Types Packs/Day Years [...] you attend tenriism or Patient refused 2021 mandaen services? Do [...] Miscellaneous - Conversion, Historical Provider Ser - 11/22/2006 12:00 AM SPRING UPHOLSTERER [id number] Vivek Garcia [address] [place] [id number] November 22, 2006 MR# [id number] Dear Vivek Garcia, APPOINTMENT REMINDER: Our record indicates that it is time for you to be seen for an office visit with Tori Pretty. You may call our office at [phone] to schedule an appointment for an Annual Physical. Please disregard this notice if you have already made an appointment. Sincerely, [facility] Source: [facility] Document Id: [id number] documented in this encounter Plan of Treatment Not on filedocumented as of this encounter Visit Diagnoses Not on filedocumented in this encounter
--- OUTSIDE RECORDS SUMMARY | 2022-08-03 21:27 | XMS_ITS | Encounter Summary ---
:1975 Author Organization [facility] Address [address] [place] [address] Care Team Providers Name Role Phone Unavailable Primary Care Provider Unavailable Encounter Details Date Type Department Care Team Description 10/03/2006 Hospital Encounter [facility] Zaira Corbin M.D. Social History Tobacco Use Types Packs/Day [...] you attend taoist or Patient refused 2021 catholic services? Do you belong to any clubs [...] this encounter Miscellaneous Notes Telephone Encounter - Zaira Bell M.D. - 10/03/2006 12:00 AM CST [id number] Addended by: ZAIRA BELL on: 10/06/2006 4:13:03 PM Modules accepted: Orders [facility] Document Id: [id number] Electronically signed by Conversion, [facility] Territory Sales Professional [id number] at 04/04/2017 2:02 PM CDT Telephone Encounter - Key Pedraza R.N. - 10/03/2006 12:00 AM CST [id number] Patient called in wanting to try the Estrogen cream that was discussed at her last appointment with Dr. Bell (09-21-06). She said at that time, she did not have an interest in trying the cream, but she is still having burning and itching symptoms, and would like to now give the cream a try. Her phone number is [phone]. Pharmacy - [facility]. [facility] Document Id: [id number] Electronically signed by Conversion, [facility] Territory Sales Professional [id number] at 04/04/2017 2:02 PM CDT Telephone Encounter - Zaira Bell M.D. - 10/03/2006 12:00 AM CST [id number] Please let her know Rx for estrogen cream was sent. KD Source: [facility] Document Id: [id number] Electronically signed by Conversion, [facility] Territory Sales Professional [id number] at 04/04/2017 2:02 PM CDT Telephone Encounter - Conversion, Historical Provider Ser - 10/03/2006 12:00 AM CST [id number] Vivek was called in regards to faxed script. She then requested a referral for her for counseling with her . She stated you had discussed this at her last visit. Her would rather not have Dr. Moore. Can we please call her when and if this is arranged. Thanks BR Source: [facility] Document Id: [id number] Telephone Encounter - Zaira Bell M.D. - 10/03/2006 12:00 AM CST [id number] Let her know I wrote the consult and she needs to call them to set up an appointment. 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 Source: [facility] Document Id: [id number] documented in this encounter Plan of Treatment Not on filedocumented as of this encounter Visit Diagnoses Not on filedocumented in this encounter
--- OUTSIDE RECORDS SUMMARY | 2022-08-03 21:27 | XMS_ITS | Encounter Summary ---
:1975 Author Organization [facility] Address [address] [place] [address] Care Team Providers Name Role Phone Unavailable Primary Care Provider Unavailable Encounter Details Date Type Department Care Team Description 12/24/2004 Hospital Encounter [facility]X [facility] Jeyson Lee, Ph.D. Social History Tobacco Use Types Packs/Day Years [...] or relatives? How often do you attend congregation or Patient refused 2021 spiritism services? Do you belong to any clubs or Yes 06/22/2022 organizations such as congregation groups, unions, fraternal or athletic groups, or [...]
--- OUTSIDE RECORDS SUMMARY | 2022-08-03 21:27 | XMS_ITS | Encounter Summary ---
:1975 Author Organization [facility] Address [address] [place] [address] Care Team Providers Name Role Phone Unavailable Primary Care Provider Unavailable Encounter Details Date Type Department Care Team Description 03/29/2006 Hospital Encounter [facility] Taylor Castillo, MOHIT N, C.N.P. [address] [place], [place] [address] (Wo rk) Social History Tobacco Use Types [...] or relatives? How often do you attend holiness or Patient refused 2021 jew services? Do you belong to any clubs or Yes 06/22/2022 organizations such as holiness groups, unions, fraternal or athletic groups, or [...] this encounter Miscellaneous Notes Telephone Encounter - Taylor Glover C.N.P., R.N. - 03/29/2006 12:00 AM CDT [id number] Spoke with patient, she is having symptoms of mastitis. Is 15 months post and is trying to wean infant. R breast is red, swollen and tender to touch. Symptoms started yesterday and since then she has not nursed d/t pain. Is now engorged. She complains of body aches and chills along with breast symptoms. Discussed this with Ivette Brown consultatant A/P: Symptoms consistant with mastitis: Will treat with Dicloxicillin. Instructed patient to apply warm compress prior to nursing or pumping and to ice afterwards for at least 15-20 minutes. To increase nursing or pumping to at least 4 times daily preferably 6 times daily for the next 2 days If symptoms not improved within 24 hours patient is to call or come in to clinic. [facility] Document Id: [id number] Electronically signed by Conversion, [facility] Acute Dialysis Nurse [id number] at 04/04/2017 12:33 PM CDT documented in this encounter Plan of Treatment Not on filedocumented as of this encounter Visit Diagnoses Not on filedocumented in this encounter
--- OUTSIDE RECORDS SUMMARY | 2022-08-03 21:27 | XMS_ITS | Encounter Summary ---
:1975 Author Organization [facility] Address [address] [place] [address] Care Team Providers Name Role Phone Unavailable Primary Care Provider Unavailable Encounter Details Date Type Department Care Team Description 09/13/2006 Hospital Encounter [facility] Provider, Historic al Social History [...] or relatives? How often do you attend caodaism or Patient refused 2021 zoroastrianism services? Do you belong to any clubs or Yes 06/22/2022 organizations such as caodaism groups, unions, fraternal or athletic groups, or [...]
--- OUTSIDE RECORDS SUMMARY | 2022-08-03 21:27 | XMS_ITS | Encounter Summary ---
:1975 Author Organization [facility] Address [address] [place] [address] Care Team Providers Name Role Phone Unavailable Primary Care Provider Unavailable Encounter Details Date Type Department Care Team Description 02/22/2005 Hospital Encounter [facility]X [facility] [...] you attend mu-ism or Patient refused 2021 lutheran services? Do you belong to any clubs [...]
--- OUTSIDE RECORDS SUMMARY | 2022-08-03 21:27 | XMS_ITS | Encounter Summary ---
:1975 Author Organization [facility] Address [address] [place] [address] Care Team Providers Name Role Phone Unavailable Primary Care Provider Unavailable Encounter Details Date Type Department Care Team Description 09/21/2006 Hospital Encounter [facility] Jessica Corbin M.D. Social History Tobacco Use Types [...] you attend sabianist or Patient refused 2021 gnosticism services? Do you belong to any clubs [...] slept in a senior living (including now)? Sex Assigned at Date Recorded Female 06/22/2022 8:38 AM CDT documented as of this encounter Progress Notes Jessica Coles M.D. - 09/21/2006 3:15 PM CST [id number] MS. Garcia is here to evaluate cramping with ovulation and feeling like something is falling out. HPI: She is a 31 year old Obstetric History T3 P0 TAB0 SAB1 E0 M0 L3 with Patient's last menstrual period was 09/08/2006. using vasectomy for contraception. She has been having pain mentioned above and trouble with anxiety. 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 HPI: She has had trouble in the past with anxiety and is supposed to be taking Celexa but only takesit intermittantly. She does not want to be on any meds daily but needs some thing for bad days. She has pain with ovulation like she did before she had children. Some pain with menses but not trouble some periods. She has a feeling like things are hanging out. It is worse with her period and has been told she has a prolapse. She will occ have pain with intercoures but mejia sno desire or enjoyment. ROS: (normal except as noted above) Past Medical History Diagnosis Date DEPRESSIVE DISORDER NEC HUMAN PAPILLOMAVIRUS NOS 1992 UTERINE INERT NEC-ANTEPA 11/13/04 Hospitalized DEL W 1 DEG LACERAT-DEL 11/20/04 Hospitalized ANEMIA-DELIVERED Past Surgical History Procedure Date Colposcopy,loop electrd cervix excis 1992 Design custom breast implant 1992 Breast implants Colposcopy,bx cervix/endocerv curr 01/23/[address] obste care,vaginal deliv 11/18/04 baby girl Current outpatient prescriptions Medication Sig ACCUTANE 10 MG OR CAPS 1 caps a day XANAX 0.25 MG OR TABS 1 TABLET 3 TIMES DAILY Allergies: No known allergies Family History Problem Relation Alzheimers No family hx of Cancer Maternal Grandmother breast Cancer Father skin Diabetes Maternal Grandmother Heart Paternal Grandfather hd Thyroid Mother graves Colon CA No family hx of History Social History Marital Status: Spouse Name: Sam Number of Children: 2 Years of Education: 15 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 Vitals as above. 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 Exam: Lymph: no enlarged groin nodes External genitalia: normal development, normal BUS, no lesions and cystocele or rectocele noted Perineum: normal skin, no lesions, good support Urethra meatus: normal , no lesion or caruncle Urethra: normal, nontender, grade 2-3 cystocele, poor pelvic muscle tone Bladder: nontender, no masses, not enlarged Vagina:normal mucosa and rugae and no discharge Cervix:multiparous and no prolapse Uterus: smooth, firm, mobile, without irregularities and min tender Adnexa: non tender, 2 x 3 bilateral without abnormality RV: not indicated Rectum: no sig hemorrhoids, no bleeding Assessment: cystocele and some MEGHAN. Anxiety. Kannan Plan: will have her see Virginia Pierce in Behavioral Med. I have given her Xanax until she can be seen. We dicussed surgical repair for cystocele and MEGHAN. She is not able to consider that right now. She can use NSAID for ovulatory pain as she does not want to be on OCP or other meds t thsi point. Source: [facility] RWHXTRANSXRTFSYS Document Id: [id number] documented in this encounter Plan of Treatment Not on filedocumented as of this encounter Visit Diagnoses Not on filedocumented in this encounter
--- OUTSIDE RECORDS SUMMARY | 2022-08-03 21:27 | XMS_ITS | Encounter Summary ---
:1975 Author Organization [facility] Address [address] [place] [phone] Care Team Providers Name Role Phone Unavailable Primary Care Provider Unavailable Encounter Details Date Type Department Care Team Description 11/22/2005 Hospital Encounter HX [facility] Provider, Histor ical Social History Tobacco [...] attend roman catholic or Patient refused 2021 scientologist services? Do you belong to any clubs [...] Progress Notes Conversion, Historical Provider Ser - 11/22/2005 3:00 PM CST [id number] SUBJECTIVE: Vivek Garcia is a 30 year old female who presents for a complete physical exam. Shereports she is doing ok. Patient's last menstrual period was 11/15/2005. - periods have been regular. Patient is currently sexually active. She is using vasectomy for contraception/cycle regulation. She has the following concerns: 1. painful menstraul cramps, increasingly worse since had last baby 1 year ago. she is still breast feeding. she is not on any hormone combination at this time. she has not tried any analgesics for this pain. 2. would like a refill of celexa. has been prescribed elsewhere previously. she is on celexa for anxiety and ocd behaviors. she is currently taking 20mg daily. it helps with her symptoms of counting. her moods have been stable. she is getting out and doing things she likes to do. sleep and appetite unchanged. counting may be slightly increasing and increased feeling of losing control lately. would like to consider increasing dosage of celexa to 40mg. she was on this dose prior to and decreased because of that. 3. she has implants, placed in 1992. she wonders if her left implant in loose and moving. she feels like it is no staying in place since she has been nursing. 4. dyspareunia present. she notes intercourse has been less pleasurable since having last child. thediscomfort is not a pain, just a change in the sensation from previous to having children. also low libido. Obstetric History T3 P0 TAB0 SAB1 E0 M0 L3 Name of Baby 1: Sabra Outcome Date: 11/15/1996 GA: 36w Outcome / Delivery Type: at 1 min.: Not recorded at 5 min.: Not recorded Is living? Not recorded Name of Baby 2: Not recorded Outcome Date: 10/31/99 GA: 3w Outcome / Delivery Type: AB, COMPLETE at 1 min.: Not recorded at 5 min.: Not recorded Is living? Not recorded Name of Baby 3: Murial Outcome Date: 03/20/03 GA: 37w Outcome / Delivery Type: at 1 min.: Not recorded at 5 min.: Not recorded Is living? 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 MAINTENANCE History: Diet/Vitamins: well balanced Calcium Intake: 1 servings/day Caffeine Intake: 4 glasses/day Exercise: none Self Breast Exam: yes Tobacco Use: Quit Packs/Day: Years: Quit date: 08/03/2001 Comment: 08/03/04 no second hand smoke at home or work Alcohol Use: No Last Pap Smear: 05/29/04 History of Abnormal Pap Smear: yes, had leep Last Tetanus: within past 5 years Last Mammogram: n/a Last Dexa Scan: n/a Last Cholesterol Screen: never had done REVIEW OF SYSTEMS: CONSTITUTIONAL:NEGATIVE for fever, chills, change in weight INTEGUMENTARY/SKIN: acne EYES: NEGATIVE for vision changes or irritation ENT/MOUTH: NEGATIVE for ear, mouth and throat problems RESP:NEGATIVE for significant cough or SOB BREAST: NEGATIVE for masses, tenderness or discharge CV: NEGATIVE for chest pain, palpitations or peripheral edema GI: NEGATIVE for nausea, abdominal pain, heartburn, or change in bowel habits female: negative for urinary symptoms or vaginal discharge MUSCULOSKELETAL:NEGATIVE for significant arthralgias or myalgia NEURO: NEGATIVE for weakness, dizziness or paresthesias ENDOCRINE: NEGATIVE for temperature intolerance, skin/hair changes HEME/ALLERGY/IMMUNE: NEGATIVE for bleeding problems or other allergic/immunologic problems PSYCHIATRIC: NEGATIVE for changes in mood or affect, thoughts of harming self or others Patient Active Problem List: SUPERVIS OTHER NORMAL PREG[V22.1] DEPRESSIVE DISORDER NEC[311] THRT RAJAN LABOR-ANTEPART[644.03] ADJUSTMENT REACTION NOS[309.9] 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 PROBLM NOS[V61.10] Previous Medical History: DEPRESSIVE DISORDER NEC HUMAN PAPILLOMAVIRUS NOS 1992 UTERINE INERT NEC-ANTEPA 11/13/04 Comment: Hospitalized DEL W 1 DEG LACERAT-DEL 11/20/04 Comment: Hospitalized ANEMIA-DELIVERED Review of patient's past surgical history indicates: COLPOSCOPY,LOOP ELECTRD CERVIX EXCIS 1992 DESIGN CUSTOM BREAST IMPLANT 1992 Comment: Breast implants COLPOSCOPY,BX CERVIX/ENDOCERV CURR 01/23/03 FULL ROUT OBSTE CARE,VAGINAL DELIV 11/18/04 Comment: baby girl Current outpatient prescriptions: CELEXA 20 MG OR TABS 1 TABLET DAILY MULTIVITAMIN OR None Entered No Known Allergies Family History: Alzheimers No family hx of Cancer Maternal Grandmother Comment: breast Cancer Father Comment: skin Diabetes Maternal Grandmother Heart Paternal Grandfather Comment: hd Thyroid Mother Comment: graves Colon CA No family hx of SOCIAL HISTORY: , 3 girls. 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 no regular exercise. OBJECTIVE: Blood pressure 114/68, height 5' 11 (1.80 m), weight 168 lbs (76.2 kg), last menstrual period 11/15/2005. Neuro: intact Eyes: PERRLA. EOMs intact. normal lids and conjuntiva. ENT: intact. Neck: supple without any masses or lymphadenopathy. Normal thyroid. Cardiac: normal S1 and S2 without any murmur, gallops or rubs. No edema or cyanosis. Lungs: normal respiratory effort. Clear to auscultation and percussion throughout. Abdomen: bowel sounds present. Soft and non-tender. No palpable masses or hepatosplenomegaly. Breast: Breasts are symmetric. No dominant, discrete, fixed or suspicious masses are noted. Implantsare noted and both slightly mobile. No skin or nipple changes or axillary nodes. Self exam is taughtand encouraged. MANAGER MAINTENANCE: Vagina and vulva are normal; no discharge is noted. Cervix normal, mildly prolapsing, pap smearobtained. Uterus anteverted and mobile, normal in size and shape without tenderness. Adnexa normal in size without masses or tenderness. Extremities: Appear normal without erythema, edema or contusion. Skin normal color and temperature. ASSESSMENT/PLAN: . 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 did not increase dose at this time as patient is breast feeding, once discontinue would consider increasing to 40 mg Qd. 625.0 DYSPAREUNIA Note: change in intercourse since 3rd child Plan: discussed importance of communication with partner. can try lubricant and variable positions. 626.9 MENSTRUAL DISORDER NOS Note: menstrual cramps recurring Plan: discussed treatment options. as patient is breast feeing would not start on OCP which has worked to control her symptoms in the past. encourage her to use tylenol. follow up if wants to try alternative treatment. Regarding breast implant shifting. Advised patient to recheck with surgeon who did placement for next step. No masses or changes noted, implants have shifted since breast feeding. HEALTH CARE MAINTENANCE: 1. pap smear updated. denies concerns for stds and declines screening. 2. encouraged regular exercise. 3. discussed healthy diet and encourage mvi to balance diet and increase calcium intake. 4. reviewed self breast exam and encouraged to continue. Follow up in 1 year for annual exam or sooner if any concerns. Patient expresses understanding and agrees with plan. Tori Pretty PA-C Source: [facility] Document Id: [id number] documented in this encounter Miscellaneous Notes Miscellaneous - Conversion, Historical Provider Ser - 11/22/2005 3:00 PM [id number] TANK CREWMAN [id number] Vivek Garcia [address] [place] [address] November 25, 2005 Dear Vivek Garcia, I am happy to inform you that your recent cervical cancer screening test (PAP smear) was normal. Preventative screening such as this helps insure your health for years to come. Congratulations for taking care of yourself! Please contact my office if you have any further questions. [phone]. Sincerely, Tori Pretty, [facility] Source: [facility] Document Id: [id number] documented in this encounter Plan of Treatment Not on filedocumented as of this encounter Visit Diagnoses Not on filedocumented in this encounter
--- OUTSIDE RECORDS SUMMARY | 2022-08-03 21:27 | XMS_ITS | Encounter Summary ---
:1975 Author Organization [facility] Address [address] [place] [address] Care Team Providers Name Role Phone Unavailable Primary Care Provider Unavailable Encounter Details Date Type Department Care Team Description 09/07/2006 Hospital Encounter [facility]X [facility] Jannet Ball M.D. [address] [place] [address] (Wo rk) Social History Tobacco [...] you attend denominational or Patient refused 2021 quaker services? Do [...] encounter Progress Notes Cedric Ball M.D. - 09/07/2006 11:00 AM CST [id number] S: Vivek Garcia is a 31 year old female presenting to discuss acne. She has had acne for many years. She has been seeing Dr. Silva Nguyen for years. Symptoms described as pain, redness. Current and past treatments used: multiple creams, peels, and laser. She has sebacceous hyperplasia. She needs monthly labs done since she is starting Accutane through Dr. Nguyen in [place], [place]. She also needsa referral. She has a history of bilateral saline breast implants in 1992. The left one is capsulating and getting hard and would like it removed or replaced. She would like a plastic surgeon referral. The patient complains of bilateral hand pain and stiffness of moderate severity for 7 months. The patient describes the symptoms as above. The patient describes modifying or exacerbating factors as: none. The patient has attempted the following treatments: none. The patient denies any other aggravating or alleviating factors or associated symptoms. 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 No numbness. No close family history ofrheumatoid arthritis. No other arthralgias. She sleeps with her hands curled under at night. Past Medical History Diagnosis Date DEPRESSIVE DISORDER NEC HUMAN PAPILLOMAVIRUS NOS 1992 UTERINE INERT NEC-ANTEPA 11/13/04 Hospitalized DEL W 1 DEG LACERAT-DEL 11/20/04 Hospitalized ANEMIA-DELIVERED Past Surgical History Procedure Date Colposcopy,loop electrd cervix excis 1992 Design custom breast implant 1993 Breast implants Colposcopy,bx cervix/endocerv curr 01/23/[address] obste care,vaginal deliv 11/18/04 baby girl No current outpatient prescriptions on file. History Substance Use Topics Tobacco Use: Quit Quit date: 08/03/2001 08/03/04 no second hand smoke at home or work Alcohol Use: No O: Patient appears well. BP 108/72 Pulse 84 Temp (Src) 98.1 (Temporal) Wt 172 lbs 9.6 oz (78.3kg). Skin: moderate and generalized comedonal, papular and scarring acne is noted on the face. Breasts: not examined. The hands reveal normal motor, sensory, vascular and tendon function. She has mildly positive Tinnel's bilateral and negative Phalen's sign. A: Acne Vulgaris with sebbaceous hyperplasia. 706.1 ACNE NEC (primary encounter diagnosis) Note: Accutane monitoring. Plan: HCG, QUAL, SERUM, AST, ALANINE AMINO (ALT) (SGPT), ALKALINE PHOSPHATASE, A.M.A. LIPID PANEL, VENOUS COLLECTION, CONSULT TO DERMATOLOGY Discussion of pathogenesis, natural history favoring regression of lesions with age and various treatment modalities with associated side effects is discussed. Dermatology referral given. Will fax monthly standing order labs to Dr. Silva Nguyen at [phone]. 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 Plan: CONSULT TO PLASTIC SURGERY to discuss her options. 656.70 JOINT PAIN-FOREARM Note: Possible carpal tunnel syndrome. Plan: Medium BLACK WRIST SPLINT (RW)given for left hand to wear at night. If improved, will place order for medium right wrist splint. Try NSAID in the morning only with food for pain/inflammation. Source: [facility] SCOTTMCHXTRANSXRTFSYS Document Id: [id number] Electronically signed by Conversion, [facility] Personnel Associate [id number] at 04/04/2017 5:44 PM CDT documented in this encounter Plan of Treatment Not on filedocumented as of this encounter Visit Diagnoses Not on filedocumented in this encounter
--- OUTSIDE RECORDS SUMMARY | 2022-08-03 21:27 | XMS_ITS | Encounter Summary ---
:1975 Author Organization [facility] Address [address] [place] [address] Care Team Providers Name Role Phone Unavailable Primary Care Provider Unavailable Encounter Details Date Type Department Care Team Description 11/20/2004 Hospital Encounter [facility] Tomsa Johnson M.D. [address] [place] [phone] (Wo rk) Social History Tobacco Use Types [...] you attend zoroastrianism or Patient refused 2021 hindu services? Do [...]
--- OUTSIDE RECORDS SUMMARY | 2022-08-03 21:27 | XMS_ITS | Encounter Summary ---
:1975 Author Organization [facility] Address [address] [place] [address] Care Team Providers Name Role Phone Unavailable Primary Care Provider Unavailable Encounter Details Date Type Department Care Team Description 11/18/2004 - Hospital Encounter HX NO MAPPING Trav Evans M.D. 11/20/[address] [place] [phone] (Wo rk) Social History Tobacco [...] you attend congregation or Patient refused 2021 confucianism services? Do [...]
--- OUTSIDE RECORDS SUMMARY | 2022-08-03 21:27 | XMS_ITS | Encounter Summary ---
:1975 Author Organization [facility] Address [address] [place] [address] Care Team Providers Name Role Phone Unavailable Primary Care Provider Unavailable Encounter Details Date Type Department Care Team Description 03/05/2005 Hospital Encounter HX [facility] [...] or relatives? How often do you attend restorationist or Patient refused 2021 adventism services? Do you belong to any clubs or Yes 06/22/2022 organizations such as restorationist groups, unions, fraternal or athletic groups, or [...] Miscellaneous - Conversion, Historical Provider Ser - 03/05/2005 12:00 AM CDT [id number] LETTER Vivek Garcia [address] [place] [address] March 05, 2005 Dear Vivek: Our records indicate that you recently cancelled your appointment with Robert Melara Asp, Ed.D., L.P.. Thank you for notifying our office. Your next scheduled appointment is: Saturday, March 12, 2005 at 9:00 AM If you are unable to keep this appointment, please call the [facility] Department at your earliest convenience at or toll-free at to or cancel or reschedule. We look forward to hearing from you. Thank you, [facility] Source: [facility] RWHXTRANSXRTFSYS Document Id: [id number] documented in this encounter Plan of Treatment Not on filedocumented as of this encounter Visit Diagnoses Not on filedocumented in this encounter
--- OUTSIDE RECORDS SUMMARY | 2022-08-03 21:27 | XMS_ITS | Encounter Summary ---
:1975 Author Organization [facility] Address [address] [place] [address] Care Team Providers Name Role Phone Unavailable Primary Care Provider Unavailable Encounter Details Date Type Department Care Team Description 11/08/2006 Hospital Encounter [facility]X [facility] Provider, Historic al Social [...] you attend episcopal or Patient refused 2021 orthodoxy services? Do you belong to any clubs [...]
--- OUTSIDE RECORDS SUMMARY | 2022-08-03 21:27 | XMS_ITS | Encounter Summary ---
:1975 Author Organization [facility] Address [address] [place] [address] Care Team Providers Name Role Phone Unavailable Primary Care Provider Unavailable Encounter Details Date Type Department Care Team Description 01/11/2005 Hospital Encounter [facility]X [facility] [...] you attend rastafari or Patient refused 2021 sabianist services? Do [...] or slept in a jail (including now)? Sex Assigned at Date Recorded Female 06/22/2022 8:38 AM CDT documented as of this encounter Plan of Treatment Not on filedocumented as of this encounter Visit Diagnoses Not on filedocumented in this encounter
--- OUTSIDE RECORDS SUMMARY | 2022-08-03 21:27 | XMS_ITS | Encounter Summary ---
:1975 Author Organization [facility] Address [address] [place] [address] Care Team Providers Name Role Phone Unavailable Primary Care Provider Unavailable Encounter Details Date Type Department Care Team Description 01/17/2007 Hospital Encounter [facility] Provider, Historic al Social History [...] attend roman catholic or Patient refused 2021 caodaism services? Do [...] of this encounter Miscellaneous Notes Miscellaneous - Cedric Ball M.D. - 01/17/2007 8:45 AM CDT [id number] Quick Note: Results faxed to Dr. Nguyen. Source: [facility] RWHXTRANSXSYS Document Id: [id number] Electronically signed by Conversion, [facility] Pig Sticker [id number] at 04/04/2017 10:54 AM CDT documented in this encounter Plan of Treatment Not on filedocumented as of this encounter Visit Diagnoses Not on filedocumented in this encounter
--- OUTSIDE RECORDS SUMMARY | 2022-08-03 21:27 | XMS_ITS | Encounter Summary ---
:1975 Author Organization [facility] Address [address] [place] [address] Care Team Providers Name Role Phone Unavailable Primary Care Provider Unavailable Encounter Details Date Type Department Care Team Description 11/23/2006 Hospital Encounter [facility] Jessica Corbin M.D. Social History Tobacco Use [...] or relatives? How often do you attend jehovah's witness or Patient refused 2021 confucianism services? Do you belong to any clubs or Yes 06/22/2022 organizations such as jehovah's witness groups, unions, fraternal or athletic groups, or [...] encounter Progress Notes Jessica Coles M.D. - 11/23/2006 2:30 PM CST [id number] Ms. Garcia presents today for pelvic pain. She is a 31 year old,Obstetric History T3 P0 TAB0 SAB1 E0 M0 L3 , LMP = Patient's last menstrual period was 11/09/2006.. using vasectomy for control. HPI: She has been noticing low abdominal pain it is crampy and sharp, and has been going on for a few days. nothing tend to make it worse, and pressure seems to help, it radiates bilaterally toward themidline. She has had trouble with rectal pain and some consitpation. No blood inher urine or stool, no black noted in her stool. No sig vag D/C. 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: Problems with mittlesmertz and cystocele/MEGHAN MHX: Past Medical History Diagnosis Date DEPRESSIVE DISORDER NEC HUMAN PAPILLOMAVIRUS NOS 1992 UTERINE INERT NEC-ANTEPA 11/13/04 Hospitalized DEL W 1 DEG LACERAT-DEL 11/20/04 Hospitalized ANEMIA-DELIVERED SHX: Past Surgical History Procedure Date Colposcopy,loop electrd cervix excis 1992 Design custom breast implant 1992 Breast implants Colposcopy,bx cervix/endocerv curr 01/23/[address] obste care,vaginal deliv 11/18/04 baby girl ROS: (otherwise negative unless noted above) REVIEW OF SYSTEMS: NEUROLOGIC: Negative EYES: Negative ENT: Negative GI: Negative BREAST: Negative : Negative CLIENT ONBOARDING ANALYST: Negative CV: Negative PULMONARY: Negative MUSCULOSKELETAL: Negative PSYCH: Negative Current outpatient prescriptions Medication Sig CLONAZEPAM 0.5 MG OR TABS 1 at hs 1/2 ACCUTANE 10 MG OR CAPS 1 caps a day XANAX 0.25 MG OR TABS 1 TABLET 3 TIMES DAILY ESTRACE 0.1 MG/GM VA CREA 2 gm per vag qwk at HS or PRN All: No known allergies Family History Problem Relation [...] file Old records reviewed and summarized above. EXAM: Vitals as above. Constitutional: Well nourished, well developed woman in NAD Back: no spinal or CVAT Abd: Soft, min SP withR/L tenderness without masses, rebound or guarding Skin: normal pigmentation, no lesions, or cyanosis Neruo/Psych: Oriented, with normal affect and appropriate mood Accounting Machine Servicer Exam: Lymph: no enlarged groin nodes External genitalia: normal development, normal BUS, no lesions Perineum: normal skin, no lesions, good support Urethra meatus: normal , no lesion or caruncle Urethra: normal, nontender, moderate to large cystocele Bladder: nontender, no masses, not enlarged Vagina:normal mucosa and rugae and no discharge Cervix:multiparous and no CMT Uterus: smooth, firm, mobile, without irregularities and mintender Adnexa: min tender, 2 x 3 bilateral without abnormality RV: not indicated Rectum: no sig hemorrhoids, no bleeding LABS: none XRAYS: none Assessment: mittlesmertz, symptomatic cystocele, known MEGHAN PLAN: needs pap updated. She is considering surgery and will get back to me. I suggested F/U with FPto eval rectal pain. Source: [facility] RWHXTRANSXRTFSYS Document Id: [id number] Electronically signed by Manny [facility] Plumbing Engineering Draftsperson [id number] at 04/04/2017 7:34 AM CDT documented in this encounter Miscellaneous Notes Miscellaneous - Conversion, Historical Provider Ser - 11/23/2006 2:30 PM JOURNEYMAN ELECTRICIAN PV INSTALLER [id number] Vivek Garcia [address] [place] [id number] November 25, 2006 Dear Vivek Garcia, I am happy to inform you that your recent cervical cancer screening test (PAP smear) was normal. Preventative screening such as this helps insure your health for years to come. Congratulations for taking care of yourself! Please contact my office if you have any further questions. [phone]. Sincerely, Jessica Coles M.D. OBSTETRICS/GYNECOLOGY [facility] Source: [facility] Document Id: [id number] documented in this encounter Plan of Treatment Not on filedocumented as of this encounter Visit Diagnoses Not on filedocumented in this encounter
--- OUTSIDE RECORDS SUMMARY | 2022-08-03 21:27 | XMS_ITS | Encounter Summary ---
:1975 Author Organization [facility] Address [address] [place] [address] Care Team Providers Name Role Phone Unavailable Primary Care Provider Unavailable Encounter Details Date Type Department Care Team Description 10/12/2006 Hospital Encounter [facility]X [facility] [...] you attend mandaeism or Patient refused 2021 worship services? Do [...]
--- OUTSIDE RECORDS SUMMARY | 2022-08-03 21:27 | XMS_ITS | Encounter Summary ---
:1975 Author Organization [facility] Address [address] [place] [address] Care Team Providers Name Role Phone Unavailable Primary Care Provider Unavailable Encounter Details Date Type Department Care Team Description 12/21/2004 Hospital Encounter HX [facility] [...] you attend religion or Patient refused 2021 mosque services? Do [...] this encounter Miscellaneous Notes Miscellaneous - Conversion, Sriram Provider Quentin - 12/21/2004 12:00 AM NURSE INFECTION CONTROL [id number] LETTER Vivek Garcia [address] [place] [address] December 21, 2004 Dear Vivek: Thank you for requesting an appointment for services at the [facility] Behavioral Health Department. Initial appointments have been scheduled in our Psychology Department with: Robert Lee, Ph.D., L.P. December at 11:00 AM located on the 3rd floor: [facility] ([facility] at [address] [place] [address]. If the above scheduled appointment is not [...] be a pleasant and worthwhile one. Sincerely, [facility] Source: [facility] RWHXTRANSXRTFSYS Document Id: [id number] documented in this encounter Plan of Treatment Not on filedocumented as of this encounter Visit Diagnoses Not on filedocumented in this encounter
--- OUTSIDE RECORDS SUMMARY | 2022-08-03 21:27 | XMS_ITS | Encounter Summary ---
:1975 Author Organization [facility] Address [address] [place] [address] Care Team Providers Name Role Phone Unavailable Primary Care Provider Unavailable Encounter Details Date Type Department Care Team Description 02/08/2005 Hospital Encounter HX [facility] [...]
--- OUTSIDE RECORDS SUMMARY | 2022-08-03 21:27 | XMS_ITS | Encounter Summary ---
:1975 Author Organization [facility] Address [address] [place] [address] Care Team Providers Name Role Phone Unavailable Primary Care Provider Unavailable Encounter Details Date Type Department Care Team Description 01/21/2007 Hospital Encounter HX NO MAPPING Piter Olson M.D. [address] [place] [phone] (Wo rk) Social History Tobacco [...] or relatives? How often do you attend congregational or Patient refused 2021 gnosticist services? Do you belong to any clubs or Yes 06/22/2022 organizations such as congregational groups, unions, fraternal or athletic groups, or [...] this encounter Progress Notes Conversion, Historical Provider Quentin - 01/21/2007 10:45 AM CDT [id number] SUBJECTIVE: 31-year-old female presents complaining of low back pain. She has noted this for the pat 3 days. Sheis very stiff, sore when she bends over, she states that she has had back pain similar to this intermittently over the past 1-2 years. She denies any injury. No radiation into the buttocks or lower extremities. OBJECTIVE: Alert and oriented. Back exam shows the spine to be straight. There is a tenderness and tightness in the lumbar paraspinal musculature. ASSESSMENT: Lumbago. PLAN: Naprosyn 500 milligrams twice daily, Soma 350 milligrams three times daily as needed for muscle spasm. She already has Oxycodone at home and may use that in addition. Follow up if not improving. Ramon Escobar Source: [facility] RWHXTRANSX[facility] Document Id: [id number] documented in this encounter Plan of Treatment Not on filedocumented as of this encounter Visit Diagnoses Not on filedocumented in this encounter
--- OUTSIDE RECORDS SUMMARY | 2022-08-03 21:27 | XMS_ITS | Encounter Summary ---
:1975 Author Organization [facility] Address [address] [place] [address] Care Team Providers Name Role Phone Unavailable Primary Care Provider Unavailable Encounter Details Date Type Department Care Team Description 03/26/2005 Hospital Encounter [facility] INTERNMED Jaswant Grier M.D. [address] [place] [address] (Wo rk) Social History Tobacco Use Types [...] you attend anabaptist or Patient refused 2021 yazidi services? Do you belong to any clubs [...] slept in a nursing home (including now)? Sex Assigned at Date Recorded Female 06/22/2022 8:38 AM CDT documented as of this encounter Progress Notes Cris Grier M.D. - 03/26/2005 10:00 AM CDT [id number] Vivek Garcia is here for sore throat for 36 hrs. she has had strep before and thinks it's that. She has her 3 children with her and one has chicken pox but no sore throats. At one timeher daughter was a strep carrier. She has swollen glands, muscle aching, can't eat much due to sore throat. Previous Medical History: DEPRESSIVE DISORDER NEC HUMAN PAPILLOMAVIRUS NOS 1993 UTERINE INERT NEC-ANTEPA 11/13/04 Comment: Hospitalized DEL W 1 DEG LACERAT-DEL 11/20/04 Comment: Hospitalized ANEMIA-DELIVERED Review of patient's past surgical history indicates: COLPOSCOPY,LOOP ELECTRD CERVIX EXCIS 1992 DESIGN CUSTOM BREAST IMPLANT 1992 Comment: Breast implants COLPOSCOPY,BX CERVIX/ENDOCERV CURR 01/23/03 FULL ROUT OBSTE CARE,VAGINAL DELIV 11/18/04 Comment: baby girl SH-, is supposed to start new job tomorrow. review of systems, except as noted in HP eyes:negative ent:negative cardiovascular:negative respiratory:negative GI:negative :negative musculoskeletal:negative neurologic-negative skin:negative psychiatric:negative physical exam-appears uncomfortable.afebrile. HEENT-throat erythema with some exudate, mouth appearsdry. ears eyes wnl. neck-bilateral painful lymphadenopathy-1.5 cm. no thyroid abnormalitites. lungsclear. heart-no murmurs, s3,s4, no jvd extremities-no cyanosis, clubbing or edema. skin no rash Rapid strep positive. She requests shot as she can't swallow. ASSESSMENT: 1. strep throat will give 1.2 milliopn units pcn. Push po fluids. I told her to let me know if kids caught it. Source: [facility] RWHXTRANSXRTFSYS Document Id: [id number] documented in this encounter Plan of Treatment Not on filedocumented as of this encounter Visit Diagnoses Not on filedocumented in this encounter
--- OUTSIDE RECORDS SUMMARY | 2022-08-03 21:27 | XMS_ITS | Encounter Summary ---
:1975 Author Organization [facility] Address [address] [place] [address] Care Team Providers Name Role Phone Unavailable Primary Care Provider Unavailable Encounter Details Date Type Department Care Team Description 06/21/2005 Hospital Encounter HX [facility] Tomas Johnson M.D. [address] [place] [phone] (Wo rk) Social History Tobacco [...] or relatives? How often do you attend adventist or Patient refused 2021 tenriism services? Do you belong to any clubs or Yes 06/22/2022 organizations such as adventist groups, unions, fraternal or athletic groups, or [...] Encounter - Conversion, Historical Provider Ser - 06/21/2005 12:00 AM CDT [id number] Vivek is calling to request that the dosage for Celexa be increased from 20 mg. per day. Continues to breastfeed 7 month old baby. Would like Rx phoned into [facility] in [place]. That number [phone]. She can be called on her cell phone number [phone]. Source: [facility] Document Id: [id number] Telephone Encounter - Virginia Redd L.P.N. - 06/21/2005 12:00 AM CDT [id number] left message on her cell phone to make an appt with Dr Evans or Oscar in order to increase her celexa Source: [facility] Document Id: [id number] documented in this encounter Plan of Treatment Not on filedocumented as of this encounter Visit Diagnoses Not on filedocumented in this encounter
--- NOTE | 2022-08-03 21:28 | ED.GENADULT ---
HPI - General Adult General Chief complaint: Arrhythmia/Palpitations Stated complaint: Elevated heartrate Time Seen by Provider: 08/03/22 20:58 Source: patient Mode of arrival: ambulatory Limitations: no limitations History of Present Illness HPI narrative: 47-year-old female coming in today complaining of palpitations. She states that she feels her heart pounding all the time for the last 5 weeks. She states that every now and then her will also start racing. She states that it is pounding right now as we are speaking. 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 She states that she has a hard time falling asleep at night and wakes up feeling exhausted in the morning. She states that she feels sweaty at night also this is going on for quite some time. She was on Adderall but stopped taking it about a month ago because it made her heart pounding worse. But even after stopping at her heart pounding continues. She states that she feels short of breath with minimal physical activity. And lastly, she states that she feels exhausted all the time. She states that her appetite has been good, she has been eating well. She has been trying to lose weight and so has had some caloric restrictions recently but has not had any significant gain or loss of weight. Patient denies any tobacco, drug or alcohol use. She does have a history of migraine headaches. Patient does have a history of hypothyroidism, ADHD. She is taking conjugated estrogens as she had an oophorectomy sometime ago. She also takes etodolac as needed for shoulder pain. Related Data Home Medications Medication Instructions Recorded Confirmed conjugated estrogens PO 07/12/22 07/12/22 etodolac 400 mg tablet 400 mg PO .as needed PRN 07/12/22 08/03/22 galcanezumab-gnlm 120 mg/mL mg subcut DIRECTED 07/12/22 07/12/22 subcutaneous pen injector levothyroxine 88 mcg capsule 90 mcg PO QDAY 07/12/22 08/03/22 Previous Rx's Medication Instructions Recorded dextroamphetamine-amphetamine ER 30 mg PO QAM #90 caps 06/22/22 30 mg 24hr capsule,extend release (Adderall XR) Allergies Allergy/AdvReac Type Severity Reaction Status Date / Time No Known Drug Allergies Allergy Verified 08/03/22 20:16 Review of Systems Status of ROS: Reports: 10 or more systems reviewed and unremarkable except as noted in History and below [facility] Medical History ADHD Social History Smoking Status: Never smoker How often do you have a drink containing alcohol: monthly or less AUDIT-C Alcohol total score: 1 Non-prescribed substance use: denies use Exam Narrative: Exam Narrative: Well-nourished well-developed patient in no acute distress. Alert and oriented. Answers questions appropriately. Mood and affect are appropriate. Thoughts are goal oriented and rational. No tangential or magical thinking noted. Patient speaks in full sentences without needing to catch their breath. HEENT: Normocephalic atraumatic. Pupils are equally round reactive to light. Extraocular muscles are intact. Conjunctivae are moist without any icterus noted. Moist mucous membranes. Posterior pharynx is normal. Neck is soft without any lymphadenopathy or thyromegaly. No masses are appreciated. Cardiovascular: Heart is regular rate and rhythm S1 and S2 are present without any murmurs. Lungs: Clear to auscultation bilaterally no wheezes rhonchi or rales are appreciated. Patient takes deep breaths without any discomfort. Abdomen: Soft and nontender nondistended with normal bowel sounds. No guarding or rebound. No masses or organomegaly appreciated. Extremities: Bilateral lower extremities are without edema. Normal DP and PT pulses. Skin: Well perfused without any obvious rashes. Const: Vital Signs, click to edit/add: Vital Signs - 24 hr 08/03/22 20:11 08/03/22 21:54 08/03/22 22:40 Temperature 97.9 F Pulse Rate [Left P ulse Oximeter] 81 77 Respiratory Rate 16 Blood Pressure [Ri ght Upper Arm] 130/80 132/88 Pulse Oximetry 100 98 100 Oxygen Delivery Me thod Room Air Room Air 08/03/22 21:55 Temperature Pulse Rate [Left P ulse Oximeter] 74 Respiratory Rate Blood Pressure [Ri ght Upper Arm] Pulse Oximetry 98 Oxygen Delivery Me thod Room Air Course Course Hospital Course: EKG shows normal sinus rhythm with a pulse of 80. Patient placed on the lunchroom monitor. IV was established and labs were drawn. Aside from a low hemoglobin 9.8, labs were unremarkable. While on the heart monitor here patient had no episodes of arrhythmia is. Pulse was 70 and regular. When asked the patient if she has had anemia before she tells me that ?every now and then. I did explain what anemia was to her and her answer remain the same. Vital Signs Vital signs: Initial Vital Signs Temperature 97.9 F 08/03/22 20:11 Temperature Source Oral 08/03/22 20:11 Pulse Rate 81 08/03/22 20:11 Respiratory Rate 16 08/03/22 20:11 Blood Pressure 130/80 08/03/22 20:11 Blood Pressure Mean 96 08/03/22 20:11 Blood Pressure Position Sitting 08/03/22 20:11 Pulse Oximetry 100 08/03/22 20:11 Oxygen Delivery Method 08/03/22 20:11 Vital Signs Temperature 97.9 F 08/03/22 20:11 Pulse Rate 81 08/03/22 20:11 Respiratory Rate 16 08/03/22 20:11 Blood Pressure 130/80 08/03/22 20:11 Pulse Oximetry 100 08/03/22 20:11 Oxygen Delivery Method 08/03/22 20:11 Temperature 97.9 F 08/03/22 20:11 Pulse Rate 77 08/03/22 22:40 Respiratory Rate 16 08/03/22 20:11 Blood Pressure 132/88 08/03/22 22:40 Pulse Oximetry 100 08/03/22 22:40 Oxygen Delivery Method 08/03/22 22:40 Medical Decision Making MDM Narrative Medical decision making narrative: 47-year-old female with palpitations. Patient will be placed in a 24 hour Holter monitor as her symptoms occur daily. She will follow up with her primary care provider to discuss the results of the Holter monitor as well as to discuss anemia. Patient was agreeable and had no other questions. Medical Records Medical records reviewed: Yes I reviewed the patient's medical records Lab Data Lab results reviewed: Yes I reviewed the patient's lab results Labs: Lab Results 08/03/22 08/03/22 08/03/22 Range/Units 21:16 21:23 21:23 WBC 6.80 (4.50-11.00) K/uL RBC 4.24 (4.00-5.20) m/uL Hgb 9.8 L (12.0-16.0) gm/dL Hct 31.3 L (33.0-51.0) % MCV 74 L (80-100) fL MCH 23 L (26-34) pg MCHC 31 L (32-36) gm/dL RDW Coeff of Jose 13.9 (11.5-15.5) % Plt Count 278 (140-440) K/uL Neut % (Auto) 62.2 (42.0-72.0) % Lymph % (Auto) 23.7 (20-44) % Haakon % (Auto) 10.9 (0.0-11.0) % Eos % (Auto) 2.1 (0.0-7.0) % Baso % (Auto) 0.4 (0.0-3.0) % Neut # (Auto) 4.20 (1.7-7.0) K/uL Lymph # (Auto) 1.60 (0.90-2.90) K/uL Haakon # (Auto) 0.70 (0.00-0.90) K/UL Eos # (Auto) 0.10 (0.00-0.50) K/uL Baso # (Auto) 0.00 (0.00-0.30) K/uL Abs Immat Gran (auto) 0.00 (0.00-0.30) K/uL Imm/Tot Granulo (auto) 0.7 % ESR 14 (2-20) mm/hr D-Dimer Quant (PE/DVT) (0.00-0.50) ug/ml Sodium (135-149) mmol/L Potassium (3.6-5.1) mmol/L Chloride (96-114) mmol/L Carbon Dioxide (20-32) mmol/L BUN (5-24) mg/dL Creatinine (0.5-1.5) mg/dL Estimated Creat Clear Estimated GFR ml/min Glucose (60-115) mg/dL Lactate (0.5-1.9) mmol/L Calcium (8.4-10.6) mg/dL Total Bilirubin (0.1-1.5) mg/dL Direct Bilirubin (0.0-0.5) mg/dL AST (12-35) U/L ALT (4-35) U/L Alkaline Phosphatase (40-150) U/L Troponin I (0.01-0.04) ng/mL C-Reactive Protein (0.5-1.0) mg/dL Total Protein (6.0-8.3) g/dL Albumin (3.3-5.0) g/dL TSH (0.270-4.20) uIU/mL SARS-CoV-2 (PCR) Negative SARS-CoV-2 (Negative) Influenza Type A (PCR) Negative PCR FLU A (Negative) Influenza Type B (PCR) Negative PCR FLU B (Negative) 08/03/22 08/03/22 08/03/22 Range/Units 21:23 21:23 21:23 WBC (4.50-11.00) K/uL RBC (4.00-5.20) m/uL Hgb (12.0-16.0) gm/dL Hct (33.0-51.0) % MCV (80-100) fL MCH (26-34) pg MCHC (32-36) gm/dL RDW Coeff of Jose (11.5-15.5) % Plt Count (140-440) K/uL Neut % (Auto) (42.0-72.0) % Lymph % (Auto) (20-44) % Haakon % (Auto) (0.0-11.0) % Eos % (Auto) (0.0-7.0) % Baso % (Auto) (0.0-3.0) % Neut # (Auto) (1.7-7.0) K/uL Lymph # (Auto) (0.90-2.90) K/uL Haakon # (Auto) (0.00-0.90) K/UL Eos # (Auto) (0.00-0.50) K/uL Baso # (Auto) (0.00-0.30) K/uL Abs Immat Gran (auto) (0.00-0.30) K/uL Imm/Tot Granulo (auto) % ESR (2-20) mm/hr D-Dimer Quant (PE/DVT) 0.33 (0.00-0.50) ug/ml Sodium 136 (135-149) mmol/L Potassium 3.5 L (3.6-5.1) mmol/L Chloride 104 (96-114) mmol/L Carbon Dioxide 26 (20-32) mmol/L BUN 14 (5-24) mg/dL Creatinine 0.6 (0.5-1.5) mg/dL Estimated Creat Clear 126.77 Estimated GFR 110 ml/min Glucose 118 H (60-115) mg/dL Lactate 1.0 (0.5-1.9) mmol/L Calcium 9.4 (8.4-10.6) mg/dL Total Bilirubin 0.3 (0.1-1.5) mg/dL Direct Bilirubin 0.2 (0.0-0.5) mg/dL AST 22 (12-35) U/L ALT 17 (4-35) U/L Alkaline Phosphatase 64 (40-150) U/L Troponin I < 0.01 L (0.01-0.04) ng/mL C-Reactive Protein < 0.5 L (0.5-1.0) mg/dL Total Protein 6.9 (6.0-8.3) g/dL Albumin 4.3 (3.3-5.0) g/dL TSH (0.270-4.20) uIU/mL SARS-CoV-2 (PCR) (Negative) Influenza Type A (PCR) (Negative) Influenza Type B (PCR) (Negative) 08/03/22 Range/Units 21:23 WBC (4.50-11.00) K/uL RBC (4.00-5.20) m/uL Hgb (12.0-16.0) gm/dL Hct (33.0-51.0) % MCV (80-100) fL MCH (26-34) pg MCHC (32-36) gm/dL RDW Coeff of Jose (11.5-15.5) % Plt Count (140-440) K/uL Neut % (Auto) (42.0-72.0) % Lymph % (Auto) (20-44) % Haakon % (Auto) (0.0-11.0) % Eos % (Auto) (0.0-7.0) % Baso % (Auto) (0.0-3.0) % Neut # (Auto) (1.7-7.0) K/uL Lymph # (Auto) (0.90-2.90) K/uL Haakon # (Auto) (0.00-0.90) K/UL Eos # (Auto) (0.00-0.50) K/uL Baso # (Auto) (0.00-0.30) K/uL Abs Immat Gran (auto) (0.00-0.30) K/uL Imm/Tot Granulo (auto) % ESR (2-20) mm/hr D-Dimer Quant (PE/DVT) (0.00-0.50) ug/ml Sodium (135-149) mmol/L Potassium (3.6-5.1) mmol/L Chloride (96-114) mmol/L Carbon Dioxide (20-32) mmol/L BUN (5-24) mg/dL Creatinine (0.5-1.5) mg/dL Estimated Creat Clear Estimated GFR ml/min Glucose (60-115) mg/dL Lactate (0.5-1.9) mmol/L Calcium (8.4-10.6) mg/dL Total Bilirubin (0.1-1.5) mg/dL Direct Bilirubin (0.0-0.5) mg/dL AST (12-35) U/L ALT (4-35) U/L Alkaline Phosphatase (40-150) U/L Troponin I (0.01-0.04) ng/mL C-Reactive Protein (0.5-1.0) mg/dL Total Protein (6.0-8.3) g/dL Albumin (3.3-5.0) g/dL TSH 3.540 (0.270-4.20) uIU/mL SARS-CoV-2 (PCR) (Negative) Influenza Type A (PCR) (Negative) Influenza Type B (PCR) (Negative) Imaging Data Chest x-ray: Attestation: I have reviewed the pertinent imaging results. My impression: No acute findings Radiologist's impression: Chest 2 views. COMPARISON: None. FINDINGS: Lungs: Clear lungs. No consolidation. Pleura: No pleural effusion or pneumothorax. Heart and Mediastinum: The cardiomediastinal silhouette is normal. The vessels are unremarkable. Bones: Unremarkable. IMPRESSION: No acute cardiopulmonary disease. ECG Data Attestation: I personally reviewed and interpreted this ECG as follows: (Normal sinus rhythm, pulse 80) Discharge Plan Discharge Clinical Impression: Palpitations Patient Disposition: Home, Self-Care Condition: Stable Additional Instructions: Follow-up with your primary care provider once your Holter monitor has finished. You should also discuss your low hemoglobin levels. Prescriptions: No Action levothyroxine 88 mcg capsule 90 mcg PO QDAY galcanezumab-gnlm 120 mg/mL pen injector subcut DIRECTED Rx Instructions: Once a month etodolac 400 mg tablet 400 mg PO .as needed PRN conjugated estrogens PO Rx Instructions: compound dextroamphetamine-amphetamine [Adderall XR] 30 mg capsule,extended release 24hr 30 mg PO QAM Qty: 90 0RF Hold Instructions: Doctor's Order Follow Up/Referrals: Kenan Brian MD [Primary Care Provider] - Stand Alone Forms: [employer] Info Instructions
--- OUTSIDE RECORDS SUMMARY | 2022-08-03 21:28 | XMS_ITS | Encounter Summary ---
:1975 Author Organization [facility] Address [address] [place] [address] Care Team Providers Name Role Phone Unavailable Primary Care Provider Unavailable Encounter Details Date Type Department Care Team Description 10/15/[address] [facility] Zaira Corbin M.D. Social History Tobacco Use [...] you attend yazidi or Patient refused 2021 adventist services? Do [...] Progress Notes Conversion, Historical Provider Ser - 10/15/2004 11:30 AM CST [id number] Quick Note by: ZAIRA GARCIA on 10/15/04 at 1:41 PM. The patient was notified of her lab results. Source: [facility] Document Id: [id number] Zaira Garcia M.D. - 10/15/2004 11:30 AM CST [id number] hving cramping and some CTX, she is worried about labor. She is very stressed at home and with work issues. She has not been taking Celxa - no insurance. I gave her smaples of Zoloft ( no Celxa available). Cx closed and fFN done. i will call her aobu the results. We discussed her sono and will recheckon the cysts agiana dn then post . KD Source: [facility] Document Id: [id number] Electronically signed by Conversion, [facility] Consumer Electronics Merchandiser [id number] at 04/04/2017 6:21 PM CDT documented in this encounter Plan of Treatment Not on filedocumented as of this encounter Visit Diagnoses Not on filedocumented in this encounter
--- OUTSIDE RECORDS SUMMARY | 2022-08-03 21:28 | XMS_ITS | Encounter Summary ---
:1975 Author Organization [facility] Address [address] [place] [address] Care Team Providers Name Role Phone Unavailable Primary Care Provider Unavailable Encounter Details Date Type Department Care Team Description 08/10/2004 Hospital Encounter [facility] INTERNMED Gaurav Crane M.D. [address] [place] [phone] (Wo rk) Social History Tobacco Use Types [...] many times do you More than three asrah es a week 06/22/2022 talk on the phone with family, friends, or neighbors? How often do you get together with friends Once a week 06/22/2022 or relatives? How often do you attend evangelical or Patient refused 2021 rastafari services? Do you belong to any clubs [...] Progress Notes Conversion, Historical Provider Ser - 08/10/2004 2:00 PM CDT [id number] Addended by: DORIS ROSA on: 08/11/2004,2:58 PM Comment: TranscriptionModules accepted: Dyllan hayes Summary, Progress NotesAddended by: TESS CRANE on: 08/11/2004 10:48:54 AMModules accepted: OrdersSUBJECTIVE: The patient is a 29 year old female sent by Dr. Hutson for evaluation of a severe pruritic rash of 3 weeks duration. The patient states that she first developed itching and a rash on her left side under her breast which she initially thought was an insect bite but then verónica n developed welts and itching all over her abdomen, her chest, back and into her groin and her extrem ities. The rash was described by those who saw her in the clinic as urticarial but as it progressed and involved her extremities, it took on somewhat of a different appearance. She has been treated wi th oral antihistamines without much relief and was started on prednisone which took about a week to s tart working and somewhat high doses. She is currently on 40 mg of prednisone a day and states that she has gained 13 lb since starting it. She is concerned about the amount of medications that she is using during this . The patient denies any prior history of hives, itching or other simila r skin rashes. She has no history of allergies, no allergic rhinitis or asthma. MEDICATIONS: The only medication that she was taking at the time the rash began was multivitamins. No other family members have had any itching problems or rashes.OBJECTIVE: The patient is alert, well developed and well nourished, in no acute distress.Examination of the skin - reveals numerous excoriated papules and small ulcerations extensively on her back, upper and lower extremities including her axilla and f ingers. There are some on her abdomen but also underneath is a somewhat blotchy salmon colored disco loration that is not raised and is somewhat confluent. HEENT - normocephalic. Eyes are clear. Nos e is clear. TM's are normal. Throat is negative.Neck - supple.Lungs - clear to auscultation.Hear t - regular rate and rhythm.Abdomen - soft and nontender.ASSESSMENT:1. Pruritic rash associated with .PLAN:1. Explained to the patient that the rash appears to be consistent with polym orphic eruption of but also has some features consistent with scabies. I offered an empiri c treatment with a scabicide such as Elimite cream or a referral to Strategy Lead for more definitive diagnosis.2. Will discuss this with Dr. Silva Nguyen in [place] to see if the patient can be seen on short notice.3. In the meantime, continue prednisone 40 mg daily but try speeding up the taperi ng to 4 day intervals instead of weekly intervals. Also recommended the patient restart Vistaril at least at bed time to help with her itching at night.Tess Crane M.D./Maria Victoria: 08/10/2004T: 1 CC: Dr. Hutson for review. Source: [facility] RWHXTRANSXSYS Document Id: [id number] documented in this encounter Plan of Treatment Not on filedocumented as of this encounter Visit Diagnoses Not on filedocumented in this encounter
--- OUTSIDE RECORDS SUMMARY | 2022-08-03 21:28 | XMS_ITS | Encounter Summary ---
:1975 Author Organization [facility] Address [address] [place] [address] Care Team Providers Name Role Phone Unavailable Primary Care Provider Unavailable Encounter Details Date Type Department Care Team Description 08/18/2004 Hospital Encounter [facility] Sayra Weaver, L.P.N. [address] [place], [place] [phone] Social History Tobacco Use Types Packs/Day Years [...] or relatives? How often do you attend orthodoxy or Patient refused 2021 faith services? Do you belong to any clubs or Yes 06/22/2022 organizations such as orthodoxy groups, unions, fraternal or athletic groups, or [...] Encounter - Conversion, Historical Provider Ser - 08/18/2004 12:00 AM CDT [id number] Addended by: SAYRA KRUSE on: 08/18/2004 3:14:47 PM Modules accepted: Orders Addended by: SAYRA KRUSE on: 08/18/2004 3:14:42 PM [facility] called and said they wanted these labs drawn before pt comes for appt. I ordered them and will fax them. They would also like a brief letter of what tx she has had and how long she has had the rash. if you could do this i will fax that too. >> ZAIRA Gamez Aug 18, 2004 2:55 PM thank you - KD >> SAYRA Gamez Aug 18, 2004 12:08 PM I ordered the consult and you will just need to ok the prednisone. I contacted Vivek and she knows she can go pickup the prednisone but she has concerns about being on it and wants to try and hold offuntil she sees the perinatology. >> SAYRA Gamez Aug 18, 2004 10:33 AM Rash is back and is causing unbearable itching again. She has been seen by us,Remington Hutson and I think Silva Nguyen(dermatology). Do you want to order somehting or have her come in and be seen again. She has been off prednisone for 4 days. [facility] is [facility]. Source: [facility] RWHXTRANSXSYS Document Id: [id number] documented in this encounter Plan of Treatment Not on filedocumented as of this encounter Visit Diagnoses Not on filedocumented in this encounter
--- OUTSIDE RECORDS SUMMARY | 2022-08-03 21:28 | XMS_ITS | Encounter Summary ---
:1975 Author Organization [facility] Address [address] [place] [address] Care Team Providers Name Role Phone Unavailable Primary Care Provider Unavailable Encounter Details Date Type Department Care Team Description 08/11/2004 Hospital Encounter HX [facility] Jesisca Corbin M.D. Social History Tobacco Use Types [...] you attend sikhism or Patient refused 2021 restorationism services? Do [...] encounter Progress Notes Jessica Coles M.D. - 08/11/2004 1:15 PM CDT [id number] review results. Same size left ov cyst - recheck sono at about 30 wks and PRN. Discussed s/sx of torsion. reviewed sono with Saul. LEVY Source: [facility] RWMCHXTRANSXRTFSYS Document Id: [id number] Electronically signed by Conversion, [facility] Novelty Chain Maker [id number] at 04/04/2017 6:13 PM CDT documented in this encounter Plan of Treatment Not on filedocumented as of this encounter Visit Diagnoses Not on filedocumented in this encounter
--- OUTSIDE RECORDS SUMMARY | 2022-08-03 21:28 | XMS_ITS | Encounter Summary ---
:1975 Author Organization [facility] Address [address] [place] [address] Care Team Providers Name Role Phone Unavailable Primary Care Provider Unavailable Encounter Details Date Type Department Care Team Description 08/20/2004 Hospital Encounter HX [facility] Sayra Weaver, L.P.N. [address] [place], [place] [phone] Social History Tobacco Use [...] you attend methodist or Patient refused 2021 protestant services? Do [...] of this encounter Miscellaneous Notes Miscellaneous - Jessica Coles M.D. - 08/20/2004 12:00 AM CDT [id number] Vivek Longoria [address] [place] [id number] August 20, 2004 Re: Ms. Longoria: Ms Longoria has been follow for her care here in [place]. She has had an ovarain cyst that is about 5cm - stable since april. She has also had increasing problems with rash - suspected to be PUPPS. I have included her , labs and sono. If you have any further questions or problems, please contact our office at [phone]. Sincerely, Jessica Coles MD Dept. PIANO REGULATOR INSPECTOR [facility] Services Source: [facility] Document Id: [id number] Electronically signed by Conversion, [facility] Caustic Strength Inspector [id number] at 04/04/2017 6:13 PM CDT Telephone Encounter - Conversion, Historical Provider Ser - 08/20/2004 12:00 AM CDT [id number] >> SAYRA KRUSE Malgorzata Aug 20, 2004 8:38 AM I am faxing all the labs [facility] requested on Vivek. They also want a letter to be faxed briefly stati ng the tx she has had so far and how long she has had the reash. Will you please do this and I will fax with the labs. [facility]: [facility] Document Id: [id number] documented in this encounter Plan of Treatment Not on filedocumented as of this encounter Visit Diagnoses Not on filedocumented in this encounter
--- OUTSIDE RECORDS SUMMARY | 2022-08-03 21:28 | XMS_ITS | Encounter Summary ---
:1975 Author Organization [facility] Address [address] [place] [address] Care Team Providers Name Role Phone Unavailable Primary Care Provider Unavailable Encounter Details Date Type Department Care Team Description 09/16/2004 Hospital Encounter HX [facility] Ameya Haji M.D. [address] [place], [place] [phone] (Wo rk) Social History [...] you attend sikh or Patient refused 2021 zoroastrianism services? Do [...] documented as of this encounter Progress Notes Saundra Stanley M.D. 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 O: closed/long/high A/P Brax morales. flu shot given. Feeling depressed . Her mental hygienist told me to go off it, it was building up in my system and gettingan allergic rxn. Advised pt to resume meds if feeling depressed, she agrees. KG Source: [facility] RWMCHXTRANSXRTFSYS Document Id: [id number] documented in this encounter Plan of Treatment Not on filedocumented as of this encounter Visit Diagnoses Not on filedocumented in this encounter
--- OUTSIDE RECORDS SUMMARY | 2022-08-03 21:28 | XMS_ITS | Encounter Summary ---
:1975 Author Organization [facility] Address [address] [place] [address] Care Team Providers Name Role Phone Unavailable Primary Care Provider Unavailable Encounter Details Date Type Department Care Team Description 09/01/[address] [facility] Taylor Castillo, MOHIT N, C.N.P. [address] [place], [place] [phone] (Wo rk) Social History [...] you attend yazidism or Patient refused 2021 evangelical services? Do you belong to any clubs [...] Progress Notes Conversion, Historical Provider Ser - 09/01/2004 9:00 AM CST [id number] Vivek is here for her 26 week visit. She is There is no episode linked to this encounter.weeks today. Employment Status: working at home She is not attending classes. Vivek understands the following: Definition of labor: Yes Warning signs of labor: Yes Palpatation of uterine contractions: Yes Warning signs of complications: Yes Weight gain: Yes Nutrition choices (review intake and risks): Yes Prevention/treatment of constipation (increase fluids/fiber): Yes Discontinue smoking, drug use, ETOH use: Yes Decrease strenuous activities (increase rest): Yes Consider work/activity/environmental hazards: Yes Travel recommendations: Yes Sexual activity/intercourse: Yes Avoid nipple stimulation: Yes Infant feeding plans: Yes Inverted nipple treatment: Yes Car seat: Yes Other topics discussed: Next appointment: Tubal Sterilization signed? No Date: Intitials: scheduled: No MD Choice: Paperwork completed: No Quick Note by: TAYLOR GLOVER on 09/02/04 at 12:25 PM. phoned with result, Fe supp encouraged Source: [facility] Document Id: [id number] Taylor Glover, C.N.P., R.N. - 09/01/2004 9:00 AM CST [id number] 1 hr gtt and hgb done today, Preadmission and certificate forms given. Does c/o SANCHEZ's q day. Tylenol helps. Does not feel she is drinking enough fluids. Rash is doing better. PTL, FKC discussed. Does have pressure mid to lower abdomen,discussed belt. GRACE Source: [facility] Document Id: [id number] documented in this encounter Miscellaneous Notes Miscellaneous - Taylor Glover C.N.P., R.N. - 09/01/2004 9:00 AM CST [id number] Vivek Matthew [address] [place] [address] 09/02/2004 Dear Vivek, I just wanted to let you know the results of the lab tests we did at your last OB visit: Your glucose was normal and was 131. Your Hemoglobin, or iron level was low. The result was 9.7, and we would like it to be at least 11.0. You need to take an iron supplement. This can be bought at any drug store and is called Ferrous Gluconate, it comes in 325mg tablets. I would like you to take 1 per day. If you take it with orange juice, it is absorbed into your body better. When you take iron supplements, your stools may become darker in color, so don't be surprised if yousee this change. It was a pleasure to see you in the clinic. If you have any further questions or problems, please contact our office at [phone]. Sincerely, Taylor Glover RN, DIAGRAM CLERK Dept. CATTLE BRANDER [facility] Services Source: [facility]RT[facility] Document Id: [id number] documented in this encounter Plan of Treatment Not on filedocumented as of this encounter Visit Diagnoses Not on filedocumented in this encounter
--- OUTSIDE RECORDS SUMMARY | 2022-08-03 21:28 | XMS_ITS | Encounter Summary ---
:1975 Author Organization [facility] Address [address] [place] [address] Care Team Providers Name Role Phone Unavailable Primary Care Provider Unavailable Encounter Details Date Type Department Care Team Description 08/27/2004 Hospital Encounter HX NO MAPPING Provider, Historical [...] or relatives? How often do you attend latter day or Patient refused 2021 pentecostal services? Do you belong to any clubs or Yes 06/22/2022 organizations such as latter day groups, unions, fraternal or athletic groups, or [...]
--- OUTSIDE RECORDS SUMMARY | 2022-08-03 21:28 | XMS_ITS | Encounter Summary ---
:1975 Author Organization [facility] Address [address] [place] [address] Care Team Providers Name Role Phone Unavailable Primary Care Provider Unavailable Encounter Details Date Type Department Care Team Description 08/03/2004 Hospital Encounter HX [facility] Robert Hutson M.D. [address] [place] [address] (Wo rk) Social History Tobacco [...] you attend latter-day or Patient refused 2021 faith services? Do [...] Progress Notes Conversion, Historical Provider Ser - 08/03/2004 10:00 AM CDT [id number] S: Vivek complains of moderate rash located on her abdomen, chest and groin for the past 2 weeks. Rash described as areas of hives and associated itching. Potential mediators include: no known triggers can be thought of other than being 20 weeks . She has been treated with prednisone 30 mg a day and tapering along with steroid cream. This has not been effective. She does not otherwise have a prior history of allergies. This is her 3rd . Other than noted above, all other pertinant system review is unremarkable. O: BP 106/62 Pulse 84 Temp (Src) 97.8 (Tympanic) Wt 182 lbs 11 oz (82.9kg) LMP OB (12/04/04) General: Patient is well nourished, alert and oriented in no acute distress. Normal mood and affect.Appropiate judgement and insight. Neck: supple without any masses or lymphadenopathy. Normal thyroid. Lungs: normal respiratory effort. Clear to auscultation and percussion throughout. Cardiac: normal S1 and S2 without any murmur, gallops or rubs. No carotid bruits. No edema or cyanosis. Skin: edematous erythematous papules consistent with urticaria present on her trunk, neck and upper thighs. A: Urticaria - possible PUPPP's P: Prednisone at higher dose 60 mg a day and tapering Vistaril prn consult to allergy Follow up if not resolved in 2 weeks or if significant worsening of symptoms. Source: [facility] RWHXTRANSXSYS Document Id: [id number] documented in this encounter Plan of Treatment Not on filedocumented as of this encounter Visit Diagnoses Not on filedocumented in this encounter
--- OUTSIDE RECORDS SUMMARY | 2022-08-03 21:28 | XMS_ITS | Encounter Summary ---
:1975 Author Organization [facility] Address [address] [place] [address] Care Team Providers Name Role Phone Unavailable Primary Care Provider Unavailable Encounter Details Date Type Department Care Team Description 08/01/2004 Hospital Encounter HX NO MAPPING Zion Cobian M.D. [address] [place], [place] [phone] (Wo rk) Social History Tobacco Use Types [...]
--- OUTSIDE RECORDS SUMMARY | 2022-08-03 21:28 | XMS_ITS | Encounter Summary ---
:1975 Author Organization [facility] Address [address] [place] [address] Care Team Providers Name Role Phone Unavailable Primary Care Provider Unavailable Encounter Details Date Type Department Care Team Description 11/18/2004 Hospital Encounter HX NO MAPPING Provider, Historical [...] you attend episcopalian or Patient refused 2021 congregation services? Do you belong to any clubs [...] Miscellaneous - Conversion, Historical Provider Ser - 11/18/2004 12:00 AM BALANCE ASSEMBLER [id number] Abstracted by JA Supervisor Refining on 11/20/2004 [facility] [address] [place], [place] [address] VIVEK HENDERSON : 71 Room Number: 3312-1 Trav Evans M.D. 11/18/04 DELIVERY NOTE Vivek was admitted in early labor the morning of 11/18/04 having contractions every 3 to 4 minutes and cervix 4 centimeters dilated and 80% effaced. She was found to be 4 to 5 centimeters dilated and completely effaced and artificial rupture of membranes was accomplished at approximately 1330 hours. She had an epidural placed. She had contractions that were then not as effective and intravenous Pitocin augmentation was started. She was then complete at 2125 hours. She pushed effectively and delivered on 11/18/04 at 2150 hours a living female of 3380 grams (7 pounds 7 ounces) deliveringin an occiput anterior position spontaneously. Apgars are 8 and 9 at one and five minutes respectively. There was a nuchal cord times one that was loose and easily reduced. The cord has three v essels and cord blood was obtained. The placenta delivered spontaneously at 2154 hours and was complete and intact. The uterus contracted down immediately and estimated blood loss was 200 millimeters. There is a 1 centimeter laceration at the posterior fourchette. The superficial end is closed with a single 3-0 Vicryl suture. There are no sponges in the vagina. The sharps are placed in the S harps box. Mother and baby are doing well. Trav Evans M.D./[facility] Source: [facility] RWHXTRANSXSYS Document Id: [id number] documented in this encounter Plan of Treatment Not on filedocumented as of this encounter Visit Diagnoses Not on filedocumented in this encounter
--- OUTSIDE RECORDS SUMMARY | 2022-08-03 21:28 | XMS_ITS | Encounter Summary ---
:1975 Author Organization [facility] Address [address] [place] [address] Care Team Providers Name Role Phone Unavailable Primary Care Provider Unavailable Encounter Details Date Type Department Care Team Description 08/24/2004 Hospital Encounter HX NO MAPPING Provider, Historical [...] or relatives? How often do you attend druze or Patient refused 2021 sikh services? Do you belong to any clubs or Yes 06/22/2022 organizations such as druze groups, unions, fraternal or athletic groups, or [...] slept in a group home (including now)? Sex Assigned at Date Recorded Female 06/22/2022 8:38 AM CDT documented as of this encounter Miscellaneous Notes Miscellaneous - Conversion, Historical Provider Ser - 08/24/2004 12:00 AM CDT [id number] Date of R/C request: [id number] faxed to: Leda Thurman [facility] @[phone] of D isclosure: All clinic labs 05-16-04 to 08-20-04, pap smr rf of 05-29-04 and derm. clinic enc notes of 08-10-04 and 08-03-04. NCPurpose of Disclosure: continuing medical careAuthorization: No - N/A Number of pages: 7Person processing request: Juanito, AMatthew Source: [facility] UNITHXTRANSXSYS Document Id: [id number] documented in this encounter Plan of Treatment Not on filedocumented as of this encounter Visit Diagnoses Not on filedocumented in this encounter
--- OUTSIDE RECORDS SUMMARY | 2022-08-03 21:28 | XMS_ITS | Encounter Summary ---
:1975 Author Organization [facility] Address [address] [place] [address] Care Team Providers Name Role Phone Unavailable Primary Care Provider Unavailable Encounter Details Date Type Department Care Team Description 11/16/2004 Hospital Encounter HX [facility] Provider, Histor ical Social History Tobacco [...] or relatives? How often do you attend mosque or Patient refused 2021 muslim services? Do you belong to any clubs or Yes 06/22/2022 organizations such as mosque groups, unions, fraternal or athletic groups, or [...]
--- OUTSIDE RECORDS SUMMARY | 2022-08-03 21:28 | XMS_ITS | Encounter Summary ---
:1975 Author Organization [facility] Address [address] [place] [address] Care Team Providers Name Role Phone Unavailable Primary Care Provider Unavailable Encounter Details Date Type Department Care Team Description 08/31/2004 Hospital Encounter HX NO MAPPING Provider, Historical [...] you attend congregational or Patient refused 2021 presybeterian services? Do [...] Miscellaneous - Conversion, Historical Provider Ser - 08/31/2004 12:00 AM BUOY TENDER [id number] *-*-*-*INCOMING RECORDS*-*-*-*Pertinent information has been abstracted out of Incoming Records.To see a complete copy of the Records please refer to the scan below![facility] CenterKB textile designs sales representative Source: [facility] Document Id: [id number] documented in this encounter Plan of Treatment Not on filedocumented as of this encounter Visit Diagnoses Not on filedocumented in this encounter
--- OUTSIDE RECORDS SUMMARY | 2022-08-03 21:28 | XMS_ITS | Encounter Summary ---
:1975 Author Organization [facility] Address [address] [place] [address] Care Team Providers Name Role Phone Unavailable Primary Care Provider Unavailable Encounter Details Date Type Department Care Team Description 10/02/2004 Hospital Encounter HX [facility] Ameya Haji M.D. [address] [place], [place] [phone] (Wo rk) Social History [...] or relatives? How often do you attend mormon or Patient refused 2021 spiritism services? Do you belong to any clubs or Yes 06/22/2022 organizations such as mormon groups, unions, fraternal or athletic groups, or [...] Progress Notes Conversion, Historical Provider Ser - 10/02/2004 9:00 AM CST [id number] Addended by: SOL WHITING on: 10/07/2004 2:36:31 PM Modules accepted: Orders Source: [facility] Document Id: [id number] Saundra Stanley M.D. - 10/02/2004 9:00 AM CST [id number] Got flu shot. Last on steroids 3 months ago for rash, will need stress dose in labor. No significantctxs. KG Source: [facility] Document Id: [id number] Electronically signed by Conversion, [facility] Slicing Machine Operator [id number] at 04/04/2017 6:21 PM CDT documented in this encounter Plan of Treatment Not on filedocumented as of this encounter Visit Diagnoses Not on filedocumented in this encounter
--- OUTSIDE RECORDS SUMMARY | 2022-08-03 21:28 | XMS_ITS | Encounter Summary ---
:1975 Author Organization [facility] Address [address] [place] [address] Care Team Providers Name Role Phone Unavailable Primary Care Provider Unavailable Encounter Details Date Type Department Care Team Description 08/03/2004 Hospital Encounter HX [facility] OBGYN Provider, Histor ical Social History [...] or relatives? How often do you attend christian or Patient refused 2021 restorationism services? Do you belong to any clubs or Yes 06/22/2022 organizations such as christian groups, unions, fraternal or athletic groups, or [...] Notes Conversion, Historical Provider Ser - 08/03/2004 8:15 AM CDT [id number] systemic rash, referal to family practice, patient was seen in the ER over the weekend, taking prednisone (20mg daily), vicadin for pain Source: [facility] Document Id: [id number] documented in this encounter Plan of Treatment Not on filedocumented as of this encounter Visit Diagnoses Not on filedocumented in this encounter
--- OUTSIDE RECORDS SUMMARY | 2022-08-03 21:28 | XMS_ITS | Encounter Summary ---
:1975 Author Organization [facility] Address [address] [place] [address] Care Team Providers Name Role Phone Unavailable Primary Care Provider Unavailable Encounter Details Date Type Department Care Team Description 10/07/2004 Hospital Encounter HX NO MAPPING Jessica Bell M.D. Social History Tobacco Use Types Packs/Day [...] you attend tenriism or Patient refused 2021 evangelical services? Do [...]
--- OUTSIDE RECORDS SUMMARY | 2022-08-03 21:28 | XMS_ITS | Encounter Summary ---
:1975 Author Organization [facility] Address [address] [place] [address] Care Team Providers Name Role Phone Unavailable Primary Care Provider Unavailable Encounter Details Date Type Department Care Team Description 11/03/2004 Hospital Encounter [facility]X [facility] Tomas Johnson M.D. [address] [place] [phone] (Wo rk) Social History Tobacco [...] you attend baptism or Patient refused 2021 roman catholic services? Do you belong to any [...] Encounter - Conversion, Historical Provider Ser - 11/03/2004 12:00 AM CST [id number] >> KIERA Gamez Nov 03, 2004 2:22 PM Ultrasound finds ovarian cysts to cont to be 6 and 7 cm diam. I recommend that ultrasound be done i mmediately after delivery because of the high chance of torsion at that time. Source: [facility] RWHXTRANSXSYS Document Id: [id number] documented in this encounter Plan of Treatment Not on filedocumented as of this encounter Visit Diagnoses Not on filedocumented in this encounter
--- OUTSIDE RECORDS SUMMARY | 2022-08-03 21:28 | XMS_ITS | Encounter Summary ---
:1975 Author Organization [facility] Address [address] [place] [address] Care Team Providers Name Role Phone Unavailable Primary Care Provider Unavailable Encounter Details Date Type Department Care Team Description 11/02/2004 Hospital Encounter HX NO MAPPING Trav Evans M.D. [address] [place] [place] [phone] (Wo rk) Social History Tobacco [...] attend jehovah's witness or Patient refused 2021 confucianist services? Do [...]
--- OUTSIDE RECORDS SUMMARY | 2022-08-03 21:28 | XMS_ITS | Encounter Summary ---
:[address] [facility] Address [address] [place] [address] Care Team Providers Name Role Phone Unavailable Primary Care Provider Unavailable Encounter Details Date Type Department Care Team Description 11/02/2004 Hospital [facility] Taylor Castillo, MOHIT N, C.N.P. [address] [place], [place] [phone] (Wo rk) Social History [...] or relatives? How often do you attend protestant or Patient refused 2021 buddhist services? Do you belong to any clubs or Yes 06/22/2022 organizations such as protestant groups, unions, fraternal or athletic groups, or [...] Progress Notes Conversion, Historical Provider Ser - 11/02/2004 11:45 AM CST [id number] Addended by: TAYLOR GLOVER on: 11/03/2004 8:25:45 AM Modules accepted: Ariella Doyle is here at 35 weeks. She states that she is getting ready at home. Preregistration: Sent in. Childbirth Ed. Classes attended: Early n, Baby Care/Nutrition n, Labor and delivery n, n, Review n, Sibling n Carseat: Has one ready to go, knows how to use it. Plans to breastfeed her baby Baby Doctor: Teddy Circumcision: na Control plans: Planning vasectomy condoms Financial issues: none No problems. Understands signs and symptoms of labor, knows phone numbers to call, where to go when in labor, etc. plan discussed. yes Discussed warning signs of . Referral status: none Assessment and Plan: Group B strep, Hgb. Will notify of results. Weekly visits with MD until delivery. Enc. to call with any concerns. [facility]: [facility] Document Id: [id number] Taylor Glover C.N.P., R.N. - 11/02/2004 11:45 AM CST [id number] GBS and HGB done today. plan and hospital arrival information given. Still has c/o low back pain. Not taking Zoloft,but feeling OK at this time. USG today to evaluate cyst on ovary. GRACE Source: [facility] Document Id: [id number] Electronically signed by [facility], [facility] Sewage Plant Attendant [id number] at 04/04/2017 6:27 PM CDT documented in this encounter Miscellaneous Notes Miscellaneous - Taylor Glover C.N.Rina., R.N. - 11/02/2004 11:45 AM CST [id number] Vivek Castro Von [address] [place] [address] November 05, 2004 [id number] Dear Ms. Longoria: I am writing to inform you the results of the laboratory tests you had done during your recent visitto the clinic. The tests that are checked were performed and are satisfactory, unless otherwise noted. The results of your recent lab(s) were: Office Visit on 11/02/2004 Value: No Group B Streptococcus isolated HGB (g/dL) Date: 11/02/2004 Value: 9.3* Low: 11. High: 15.7 Status: Final As we talked about, increase your iron supplement to 2-3 per day, taking with orange juice. It was a pleasure to see you in the clinic. If you have any further questions or problems, please contact our office at [phone]. Sincerely, Taylor Glover RN, HOUSE ADMIN Obstetrics and Gynecology Department [facility] Source: [facility] Document Id: [id number] Electronically signed by Conversion, [facility] Sewage Plant Attendant [id number] at 04/04/2017 6:27 PM CDT documented in this encounter Plan of Treatment Not on filedocumented as of this encounter Visit Diagnoses Not on filedocumented in this encounter
--- OUTSIDE RECORDS SUMMARY | 2022-08-03 21:28 | XMS_ITS | Encounter Summary ---
:1975 Author Organization [facility] Address [address] [place] [address] Care Team Providers Name Role Phone Unavailable [...] you attend orthodoxy or Patient refused 2021 moravian services? 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 11/18/04 HISTORY AND PHYSICAL HISTORY: Vivek Garcia is a 29-year-old white female, 3, para 2, with last menstrual period 02/28/04 and expected date of delivery of 12/04/04. She is found to be 4 centimeters dilated and 80% effaced and having regular contractions though they are mild. Her cervix has changed since her last exam when she was 3 centimeters. She is having significant pelvic pain and cramping in he r hips and low back which has been happening over the last week. She has also had this previously during the . Vivek had a significant dermatitis that required oral steroids during the . She has had no other problems with the . Vivek has requested epidural during this labor. PAST HISTORY, MEDICATIONS, FAMILY HISTORY AND GENETIC HISTORY are on the record and are unchanged. ALLERGIES: None. 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 LABS: The patient is hepatitis B negative. She is rubella immune. She is blood type A positive. She is Group B strep negative. Hemoglobin on 11/02/04 was 9.3. PHYSICAL EXAMINATION: Blood pressure 122/70. Weight 216 pounds. heart tones 150 with normal variability. HEENT: Within normal limits with pupils equal, reactive to light and oral cavity normal. NECK: Supple with no thyroid enlargement or adenopathy. LUNGS: Clear. HEART: First heart sound and second heart sound clear with regular rhythm and no murmurs. ABDOMEN: Gravid uterus with contractions every 3 to 4 minutes. There is no costovertebral angle tenderness. EXTREMITIES: 2 plus pretibial edema and normal pulses. PELVIC: Cervix is 4 centimeters dilated, 80% effaced, minus 1 station, vertex presentation. Bag of bryan intact. DIAGNOSIS: Intrauterine , 37 weeks 5 days gestation, early labor. PLAN: Anticipate vaginal delivery. Epidural to be placed. Trav Evans M.D./[facility] Source: [facility] RWHXTRANSXSYS Document Id: [id number] documented in this encounter Plan of Treatment Not on filedocumented as of this encounter Visit Diagnoses Not on filedocumented in this encounter
--- OUTSIDE RECORDS SUMMARY | 2022-08-03 21:28 | XMS_ITS | Encounter Summary ---
:1975 Author Organization [facility] Address [address] [place] [address] Care Team Providers Name Role Phone Unavailable Primary Care Provider Unavailable Encounter Details Date Type Department Care Team Description 11/09/2004 Hospital Encounter HX [facility] OBGYN Provider, Histor ical Social History Tobacco [...] or relatives? How often do you attend orthodox or Patient refused 2021 episcopalian services? Do you belong to any clubs or Yes 06/22/2022 organizations such as orthodox groups, unions, fraternal or athletic groups, [...]
--- OUTSIDE RECORDS SUMMARY | 2022-08-03 21:28 | XMS_ITS | Encounter Summary ---
:1975 Author Organization [facility] Address [address] [place] [address] Care Team Providers Name Role Phone Unavailable Primary Care Provider Unavailable Encounter Details Date Type Department Care Team Description 11/18/2004 [facility] Tomas Johnson M.D. [address] [place] [phone] (Wo rk) Social History Tobacco [...] you attend restorationist or Patient refused 2021 sabianism services? Do you belong to any clubs [...] documented as of this encounter Progress Notes Trav Evans M.D. - 11/18/2004 9:30 AM CST [id number] leon 12/04/2004,back hurts, pelvis hurts, isn't sleeping,tylenol pm helps,has a yellow dischargeJZ to LD to monitor contractions wds Source: [facility] RWMCHXTRANSXRTFSYS Document Id: [id number] documented in this encounter Plan of Treatment Not on filedocumented as of this encounter Visit Diagnoses Not on filedocumented in this encounter
--- OUTSIDE RECORDS SUMMARY | 2022-08-03 21:28 | XMS_ITS | Encounter Summary ---
:1975 Author Organization [facility] Address [address] [place] [address] Care Team Providers Name Role Phone Unavailable Primary Care Provider Unavailable Encounter Details Date Type Department Care Team Description 08/20/2004 Hospital En[facility] Provider, Historic al Social History Tobacco [...] or relatives? How often do you attend cheondoism or Patient refused 2021 buddhist services? Do you belong to any clubs or Yes 06/22/2022 organizations such as cheondoism groups, unions, fraternal or athletic groups, or [...]
--- OUTSIDE RECORDS SUMMARY | 2022-08-03 21:28 | XMS_ITS | Encounter Summary ---
:1975 Author Organization [facility] Address [address] [place] [address] Care Team Providers Name Role Phone Unavailable Primary Care Provider Unavailable Encounter Details Date Type Department Care Team Description 10/26/2004 Hospital Encounter [facility] Tomas Johnson M.D. [address] [place] [phone] (Wo rk) Social History Tobacco [...] you attend catholic or Patient refused 2021 baptist services? Do you belong to any clubs [...] encounter Progress Notes Trav Evans M.D. - 10/26/2004 1:30 PM CST [id number] leon 12/04/2004,c/o low back discomfort, x 1 week rec tylenol wds Source: [facility] RWMCHXTRANSXRTFSYS Document Id: [id number] Electronically signed by Conversion, [facility] Sweat Box Attendant [id number] at 04/04/2017 6:21 PM CDT documented in this encounter Plan of Treatment Not on filedocumented as of this encounter Visit Diagnoses Not on filedocumented in this encounter
--- OUTSIDE RECORDS SUMMARY | 2022-08-03 21:28 | XMS_ITS | Encounter Summary ---
:1975 Author Organization [facility] Address [address] [place] [address] Care Team Providers Name Role Phone Unavailable Primary Care Provider Unavailable Encounter Details Date Type Department Care Team Description 08/21/2004 Hospital Encounter HX [facility] OBGYN Provider, Histor ical Social History [...] you attend jainism or Patient refused 2021 jainism services? Do you belong to any clubs [...] Progress Notes Conversion, Historical Provider Ser - 08/21/2004 9:45 AM CDT [id number] Addended by: BRENDA KRUSE on: 08/21/2004 1:37:13 PM Modules accepted: Orders [facility] Document Id: [id number] Conversion, Historical Provider Ser - 08/21/2004 9:45 AM CDT [id number] continuing to have problems with rash, ssen by Aroldo Nguyen, biopsy results pending. is being seen at the next week JRN Source: [facility] Document Id: [id number] documented in this encounter Plan of Treatment Not on filedocumented as of this encounter Visit Diagnoses Not on filedocumented in this encounter
--- OUTSIDE RECORDS SUMMARY | 2022-08-03 21:28 | XMS_ITS | Encounter Summary ---
:1975 Author Organization [facility] Address [address] [place] [address] Care Team Providers Name Role Phone Unavailable Primary Care Provider Unavailable Encounter Details Date Type Department Care Team Description 08/19/[address] [facility] Provider, Historic al Social History [...] or relatives? How often do you attend alevism or Patient refused 2021 mu-ism services? Do you belong to any clubs or Yes 06/22/2022 organizations such as alevism groups, unions, fraternal or athletic groups, or [...] Miscellaneous - Conversion, Historical Provider Ser - 08/19/2004 11:00 AM CDT [id number] Addended by: CHELITA TOURE on: 08/19/2004,3:15 PM Comment: orders placed in future/pt to retur n in the AMModules accepted: Order Summary, Progress Notes Source: [facility] [id number] Document Id: [id number] documented in this encounter Plan of Treatment Not on filedocumented as of this encounter Visit Diagnoses Not on filedocumented in this encounter
--- OUTSIDE RECORDS SUMMARY | 2022-08-03 21:28 | XMS_ITS | Encounter Summary ---
:1975 Author Organization [facility] Address [address] [place] [address] Care Team Providers Name Role Phone Unavailable Primary Care Provider Unavailable Encounter Details Date Type Department Care Team Description 08/11/2004 Hospital Encounter HX [facility] Gaurav Petit M.D. [address] [place] [phone] (Wo rk) Social History Tobacco [...] or relatives? How often do you attend synagogue or Patient refused 2021 jew services? Do you belong to any clubs or Yes 06/22/2022 organizations such as synagogue groups, unions, fraternal or athletic groups, or [...] Encounter - Conversion, Historical Provider Ser - 08/11/2004 12:00 AM CDT [id number] >> TESS Gamez Aug 11, 2004 5:47 PM I was unable to get ahold of the patient, so I gave the appt info to her at his work place. >> TESS Gamez Aug 11, 2004 12:26 PM I called to tell patient that she has an appt with Dr. Nguyen in [place] [email or web address]. Copies of her recent re cords will be faxed. There was no answer, but I left a voice message for her to call back. Source[facility] Document Id: [id number] documented in this encounter Plan of Treatment Not on filedocumented as of this encounter Visit Diagnoses Not on filedocumented in this encounter
--- OUTSIDE RECORDS SUMMARY | 2022-08-03 21:28 | XMS_ITS | Encounter Summary ---
:1975 Author Organization [facility] Address [address] [place] [address] Care Team Providers Name Role Phone Unavailable Primary Care Provider Unavailable Encounter Details Date Type Department Care Team Description 11/04/2004 Hospital Encounter HX [facility] Ameya Haji M.D. [address], [place] [phone] (Wo rk) Social History [...] or relatives? How often do you attend buddhist or Patient refused 2021 mandaeism services? Do you belong to any clubs or Yes 06/22/2022 organizations such as buddhist groups, unions, fraternal or athletic groups, or [...] encounter Progress Notes Saundra Stanley M.D. - 11/04/2004 11:00 AM CST [id number] Having LBP ?Ctxs. O: tender over upper sacrum, no CVAT. Cervix unchanged. A/P musc/skel pain. Tylenol prn. KG Source: [facility] RWMCHXTRANSXRTFSYS Document Id: [id number] documented in this encounter Plan of Treatment Not on filedocumented as of this encounter Visit Diagnoses Not on filedocumented in this encounter
--- OUTSIDE RECORDS SUMMARY | 2022-08-03 21:28 | XMS_ITS | Encounter Summary ---
:1975 Author Organization [facility] Address [address] [place] [address] Care Team Providers Name Role Phone Unavailable Primary Care Provider Unavailable Encounter Details Date Type Department Care Team Description 08/11/2004 Hospital Encounter HX NO MAPPING Jessica Bell [...] you attend restorationist or Patient refused 2021 uatsdin services? Do you belong to any clubs [...]
--- OUTSIDE RECORDS SUMMARY | 2022-08-03 21:28 | XMS_ITS | Encounter Summary ---
:[address] [facility] Address [address] [place] [address] Care Team Providers Name Role Phone Unavailable Primary Care Provider Unavailable Encounter Details Date Type Department Care Team Description 11/13/2004 Hospital Encounter HX NO MAPPING Provider, Historical [...] or relatives? How often do you attend voodoo or Patient refused 2021 orthodoxy services? Do you belong to any clubs or Yes 06/22/2022 organizations such as voodoo groups, unions, fraternal or athletic groups, or [...] slept in a care home (including now)? Sex Assigned at Date Recorded Female 06/22/2022 8:38 AM CDT documented as of this encounter Plan of Treatment Not on filedocumented as of this encounter Visit Diagnoses Not on filedocumented in this encounter
--- OUTSIDE RECORDS SUMMARY | 2022-08-03 21:29 | XMS_ITS | Encounter Summary ---
:1975 Author Organization [facility] Address [address], [place] [address] Care Team Providers Name Role Phone Needs Pcp, Assignment Primary Care Provider Reason for Visit Reason Comments Med Request Encounter Details Date Type Department Care Team Description 12/23/2020 Telephone [facility] Cristina Gallegos, Med Request [address] [place], [place] [address] Social History Tobacco Use Types Packs/Day Years Used Date Smoking Tobacco: Never Smokeless Tobacco: Never Alcohol Use Standard Drinks/Week Comments Yes 0 (1 standard drink = 0.6 oz pure alcoho l) rarely Alcohol Habits Answer Date Recorded How often do you have a drink containing alcohol? Not asked How many drinks containing alcohol do you have on a typical Not asked day when you are drinking? How often do you have six or more drinks on one occasion? No t asked Comment: rarely 05/24/2017 Sex Assigned at Date Recorded Not on file documented as of this encounter Nursing Notes Dakota Aparicio MD - 12/23/2020 3:54 PM CST FINANCIAL SERVICES INTERN checked, last refill was 08/2020. Refill ordered. Dakota Aparicio MD 12/23/2020, 3:55 PM SOLUTION ARCHITECT Cristina Gallegos [facility] - 12/23/2020 2:06 PM CST Patient is calling for a prescription fill of Noco 5-325. She will be traveling and can not bring the marijuana with her. She is taking tizanidine as well. Last office visit: 09/01/20 W/ AT 1. Investigations: none ?? 2. Consults: Pending consult at [facility], see HPI ?? 3. Interventions:none recommended today ?? 4. Medications: A small amount of [place] was given to her today to use for severe pain episodes. She uses with this very sparingly and has had only 2 prescriptions in small quantities over the past 11 months ?? 5. Physical Therapy: continue HEP ?? 6. Psych: Dr. Honeycutt continues to be a resource for you, follow-up with him as needed. Viky Fuentes PA-C is also a good resource for integrative health approaches ?? 7. Follow Up: as needed SOLUTION ARCHITECT documented in this encounter Plan of Treatment Not on filedocumented as of this encounter Visit Diagnoses Diagnosis Spondylosis of cervical region without m yelopathy or radiculopathy (HRC) Cervical spondylosis without myelopathy Occipital neuralgia of left side documented in this encounter Care Teams Traffic Administrator Relationship Specialty Start Date End Date Needs Pcp, Assignment PCP - General 04/24/14 [place] [address] documented as of this encounter
--- OUTSIDE RECORDS SUMMARY | 2022-08-03 21:29 | XMS_ITS | Encounter Summary ---
:1975 Author Organization [email or web address] Address [address], [place] [address] Care Team Providers Name Role Phone Needs Pcp, Assignment Primary Care Provider Reason for Visit Reason Comments Refill Encounter Details Date Type Department Care Team Description 02/03/2021 Refill [facility] Cristina Gallegos CMA Refill [address] [place], [place] [address] Social History Tobacco Use Types [...] on file documented as of this encounter Patient Instructions Patient InstructionsCristina Gallegos CMA - 02/03/2021 1:59 PM CDT Patient calling for refill Eureka 5-325 mg. Last office visit with Barbara Lindsay CNP 01/19/2021: 3. Interventions: I recommended she have occipital nerve blocks/TPI with Dr. Aparicio to help break this cycle of pain. These have provided some temporizing in the past. ?? 4. Medications: A small amount of [place] was given to her today to use for severe pain episodes. She uses with this very sparingly and has had only 3 prescriptions in small quantities over the past year. SUPERVISOR TAPING reviewed- #14 Eureka prescribed on 2/23/21by Dr. Aparicio. Renewed RX today. documented in this encounter Nursing Notes Dakota Aparicio MD - 02/04/2021 3:00 PM CDT OK for #7 tabs of E[place], but will work on transitioning off opioids. Dakota Aparicio MD 02/04/2021, 3:01 PM documented in this encounter Plan of Treatment Not on filedocumented as of this encounter Visit Diagnoses Diagnosis Spondylosis of cervical region without m yelopathy or radiculopathy Cervical spondylosis without myelopathy Occipital neuralgia of left side documented in this encounter Care Teams Log Carrier Operator Relationship Specialty Start Date End Date Needs Pcp, Assignment PCP - General 04/24/14 [place] [address] documented as of this encounter
--- OUTSIDE RECORDS SUMMARY | 2022-08-03 21:29 | XMS_ITS | Clinical Summary ---
:1975 Author Organization [facility] Address [address] [address] Care Team Providers Name Role Phone Needs Pcp, Assignment Primary Care Provider Source Comments You are receiving this document as you are listed as the primary care provider,follow-up provider, or the patient has been referred to you for consultation.This is in compliance with the Medicare and Medicaid EHR Incentive Program,which states Providers who transition their patient to another setting of careor provider of care or refers their patient to another provider of care shouldprovide summarycare record for each transition of care or referral. PetroDE Allergies No known active allergies Medications Medication Sig Dispensed Refills Start Date End Date Status ondansetron Take 1-2 Tabs by 60 Tab 3 02/21/2018 Active (ZOFRAN-ODT) 4 MG mouth every 8 disintegrating tablet hours as needed for Nausea or Other (Headache). SUMAtriptan (IMITREX) TAKE 1 TABLET BY 12 Tablet 0 09/14/2018 Active 100 MG MOUTH AT ONSET OF tabletIndications: MIGRAINE. REPEAT Migraine without aura NEEDED IN 1-2 and without status HOURS. MAX 2 A migrainosus, not DAY. MAX 9 DAYS intractable PER MONTH progesterone Take 200 mg by 0 Ac tive micronized mouth daily. (PROMETRIUM) 200 MG capsule levothyroxine Take 100 mcg by 0 Active (SYNTHROID) 100 MCG mouth daily. tablet medical cannabis Take as instructed 0 Active patient . certifiedIndications: Bilateral occipital neuralgia, Other complicated headache syndrome, Medical marijuana use tiZANidine (ZANAFLEX) Take 1 Tablet by 120 Tablet 1 12/22/2020 Active 2 MG tablet mouth every 8 hours as needed. HYDROcodone-acetamino Take 1 Tablet by 7 Tablet 0 02/04/2021 Active phen (NORCO) 5-325 MG mouth daily as tabletIndications: needed for Pain. 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), Occipital neuralgia of left side VYVANSE 20 MG capsule Take 20 mg by 0 12/23/2020 Active mouth daily. ACCELERATOR OPERATOR THYROID 90 MG TAKE 1 TABLET BY 0 02/04/2021 Active tablet MOUTH IN THE MORNING AND 30 MINUTES BEFORE FOOD tretinoin (RETIN-A) APPLY TO THE FACE 0 01/18/2021 Active 0.025 % cream EVERY NIGHT FOLLOWED BY A MOISTURIZER FOR 30 DAYS triamcinolone Apply topically 0 11/12/2020 Active acetonide (KENALOG) two times a day. 0.1 % cream topiramate (TOPAMAX) Take 25 mg by 0 Active 25 MG mouth. capsuleIndications: Indications: 75mg 75mg QHS QHS DULoxetine (CYMBALTA) TAKE 2 CAPSULES BY 60 Capsule 3 04/30/20 21 Active 30 MG capsule MOUTH DAILY Hospital, Clinic, or Other Ordered Dose Route Frequency Start Date End Date Status Facility Administered Medication fentaNYL (SUBLIMAZE) 25 - 100 mcg IV PRN 04/28/2018 Active injection 25-100 mcgIndications: 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) midazolam (VERSED) injection 1 - 2 mg IV PRN 04/28/2018 Active 1-2 mgIndications: 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) Active Problems Problem Noted Date Bilateral occipital neuralgia 03/11/2020 Trigger finger Migraines Herniated disc, cervical (ACG) Overview: C6-C7 Family History Medical History Relation Name Comments Hypertension Father Relation Name Status Comments Father Alive Mother Alive Sister Alive Social History Tobacco Use Types Packs/Day Years [...] Assigned at Date Recorded Not on file Last Filed Vital Signs Vital Sign Reading Time Taken Comments Blood Pressure 140/87 10/02/2019 10:04 AM SYSTEMS CHECKOUT MECHANIC Pulse 84 10/02/2019 10:04 AM SYSTEMS CHECKOUT MECHANIC Temperature 36.4 ??C (97.5 ??F) 04/28/2018 9:04 AM CDT Respiratory Rate 16 10/02/2019 10:04 AM SYSTEMS CHECKOUT MECHANIC Oxygen Saturation 99% 10/02/2019 10:04 AM SYSTEMS CHECKOUT MECHANIC Inhaled Oxygen Concentration - - Weight 77.6 kg (171 lb) 02/09/2021 7:43 AM CDT Height 181.6 cm (5' 11.5) 03/11/2020 10:08 AM CDT Body Mass Index 23.52 03/11/2020 10:08 AM CDT Plan of Treatment Health Maintenance Due Date Last Done Comments Cervical Cancer Screening Due 1975 Colon Cancer Screening Plan 1975 Due Hep C Screening (Preventive 1975 Services) HepB (1) 1975 COVID-19 Vaccine (#1) 1975 HIV Screening (Preventive 1989 Services) Adult Preventive Visit 1991 Cholesterol 2018 DTaP/Tdap/Td (2 - Tdap) 05/14/2019 05/14/2009 Influenza (#1) 2022 07/27/2018, 09/29/2017, 09/16/2004 Zoster/Shingles (1 of 2) 2023 HepA Aged Out No longer eligib le based on patient's age to complete this to pic Hib Aged Out No longer eligib le based on patient's age to complete this to pic IPV (Polio) Aged Out No longer eligib le based on patient's age to complete this to pic MCV4 Aged Out No longer eligib le based on patient's age to complete this to pic Pneumococcal Aged Out No longer eligib le based on patient's age to complete this to pic Insurance Payer Benefit Plan Subscriber ID Effective Phone Address Typ e / Group Dates TRAVELERS WC TRAVELERS [id number] 2014-Pre [phone] [address] Workers Comp sent [phone] [place] [address] BCBS BCBS PMAP [id number] 2020-Pres [address] Med icaid BLUE ent [id number] [place] [address] Vivek Echeverria Personal/Famil Self 1975 [address] (Home) [phone] [place], [place] (Work) [address] [id number], Workers Comp Other [address] (Home) [place], [place] [address] Vivek Echeverria Workers Comp Self 1975 [address] [facility] (Home) [place] [address] Care Teams Car Sales Representative Relationship Specialty Start Date End Date Needs Pcp, Assignment PCP - General 04/24/14 [place] [address]
--- OUTSIDE RECORDS SUMMARY | 2022-08-03 21:29 | XMS_ITS | Encounter Summary ---
:1975 Author Organization [facility] Address [address] [place] [address] Care Team Providers Name Role Phone Unavailable Primary Care Provider Unavailable Encounter Details Date Type Department Care Team Description 05/15/2004 Hospital Encounter HX [facility] OBGYN Provider, Histor ical Social History [...] you attend pentecostalism or Patient refused 2021 alevism services? Do you belong to any clubs [...] Progress Notes Conversion, Historical Provider Ser - 05/15/2004 12:30 PM CDT [id number] Genetic Screening: Negative for defects Infectious Diseases: Denies any history of sexually transmitted infections. Has had abnormal Pap smears in the pastSexual History has been with charles rodriguez Sam, 4.5 yrsS: Vivek is a 28 year old y/o, G 3, P 2. She is 11 weeks today. She has missed 2 period(s). Patient's LMP from OB Dating Form was 02/28/2004.. She is sure of her LMP. She lives in [place], with , Sam and two gaughter, Nathaly 7.5yrs and Murial 14mo. 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 Family is close and supportive. There is no previous medical history on file.Review of patient's past jose manuel gical history indicates: DIRECTOR MEDICAL SAFETY PROCEDURE DATE: Comment: 2 vaginal del.Obstetric History T2 P1 TAB0 SAB0 E0 M0 L2 Misc. Assessment:Pren atal vitamins: Is taking them.Diet: Regular diet, no history of an eating disorder. Adequate calci um intake discussed. Transportation issues: noneSafe relationship: Vivek feels safe in current rel ationship. She has no history of abusive relationhips.Financial Concerns: no Insurance: [facility] Social Service/Public Health: noShe is not a smoker.She is planning to breastfeed her baby.Discu ssed wt. gain and exercise, caffeine, choosing a baby doctor, OB care schedule and early pregnacy dis comforts.Childbirth Education Schedule, these months were scheduled today:Sibling Class- Nov 04O: Appropriate affect and grooming. Good eye contact throughout interview.A: 1. Appropriate and he alth seeking behaviors toward her 2. Verbalizes good understanding of care shona edule, and the importance of coming to each visit as scheduled. 3. Supportive relationshi p with her , Sam and family 4. Sure of LMP 02/28/04Plan:1. Discussed materials in the new OB folder, proper diet, exercise and enc. her to abstain from alcohol. We also discussed childbi rth ed. classes, she was instructed to call with any cramping and bleeding, or any other concerns. Referrals: [facility] Document Id: [id number] Conversion, Historical Provider Ser - 05/15/2004 12:30 PM CDT [id number] New OB ED. CELE 12-03-04 11wk [facility] Document Id: [id number] documented in this encounter Miscellaneous Notes Miscellaneous - Trav Evans M.D. - 05/15/2004 12:30 PM CDT [id number] Vivek Longoria [address] [place] [address] May [birth year], 2004 [id number] Dear Vivek Longoria LAB RESULTS: The results of your recent labs are NORMAL. Your blood type is A positive. If you have any further questions or problems, please contact our office at [phone] in Obstetrics/Gynecology. Sincerely, Trav Evans M.D. OBSTETRICS/GYNECOLOGY Source: [facility] Document Id: [id number] Electronically signed by Conversion, [facility] Spikemaking Supervisor [id number] at 04/04/2017 6:56 PM CDT documented in this encounter Plan of Treatment Not on filedocumented as of this encounter Visit Diagnoses Not on filedocumented in this encounter
--- OUTSIDE RECORDS SUMMARY | 2022-08-03 21:29 | XMS_ITS | Encounter Summary ---
:1975 Author Organization [facility] Address [address] [place] [address] Care Team Providers Name Role Phone Unavailable Primary Care Provider Unavailable Encounter Details Date Type Department Care Team Description 07/27/2004 Hospital Encounter HX [facility] Tomas Johnson M.D. [address] [place] [phone] (Wo rk) Social History Tobacco [...] encounter Progress Notes Trav Evans M.D. - 07/27/2004 10:30 AM CDT [id number] Rash at all flexor sites with initial itching site under left breast now thickened and warm, appearsas cellulitis. wds Source: [facility] RWMCHXTRANSXRTFSYS Document Id: [id number] documented in this encounter Plan of Treatment Not on filedocumented as of this encounter Visit Diagnoses Not on filedocumented in this encounter
--- OUTSIDE RECORDS SUMMARY | 2022-08-03 21:29 | XMS_ITS | Encounter Summary ---
:1975 Author [facility] Address [address] [place] [address] Care Team Providers Name Role Phone Needs Pcp, Assignment Primary Care Provider Reason for Visit Reason Comments Follow-up occipital pain Encounter Details Date Type Department Care Team Description 09/01/2020 Telemedicine [facility] Barbara Lindsay APRN, FINISHING SUPERVISOR [address] [facility] [place] [id number] Spondylosis of cervical region without m yelopathy or radiculopathy (Primary Dx); [address], [facility] Occipital neuralgia of left side [place], [place] [address] Social History Tobacco Use Types Packs/Day Years [...] on file documented as of this encounter Progress Notes Barbara Lindsay APRN, CNP - 09/01/2020 8:40 AM CST Subjective: Thank you for allowing us to continue to participate in the care of your patient, Vivek Echeverria. She was seen at the [facility] by Barbara Lindsay CNP on 09/01/2020. As you know, Vivek Echeverria is a pleasant 45 y.o. year-old female who we initially evaluated on 12/26/15 At that time, she presented with occiptial neuralgia/migraine headaches. She returns today for further followup.Today's appointment was conducted via video using [employer] secondary to the Covid-19 pandemic. Vivek is well known to Dr. Aparicio who has been treating her occipital neuralgia since 2016. From his most recent video visit with her in January 2020 ??She would like to get another opinion at the [facility]. This is a reasonable request and I would be happy to collaborate her treatments and resultswith any outside provider as needed. To date we have done a left TON RFA and occipital nerve blocks.She's also had a cervical epidural in the past. She had questionable response to the cervical RFA. What she may be a candidate for would be an implantable occipital nerve stimulator, versus nerve decompression or ablation. The chronic pain program may also be of benefit. She recently requested a referral to [facility] for her occipital nerve decompression surgery. She called requesting a refill of her Sapphire and since she had not been seen fora while was scheduled for a clinic visit. She indicates that a few months back she decided to stop all of her daily medications because she was not feeling like herself. She requests that she have something on hand for very severe pain episodes. She uses Sapphire extremely sparingly and has only had 2 prescriptions for this medication in 2019 for a total quantity of around 30 tablets. ADVANCED MANUFACTURING CONSULTANT reviewed. Since we last met she had many visits with Viky Fuentes PA-C as well as Dr. Honeycutt. She reports gaining insight from them and following different treatment approaches recommended by them.. Management history and therapy response since we have been treating Vivek Echeverria includes: Cervical facet joint injection at C2/3 01/12/17. Had relief during the local anesthetic phase (8->2/10), but no relief during the steroid phase. Trigger point injections - no help. Cervical RFA C2/3 07/21/17 - not sure if this is helping??(helped with headaches) CURRENT PAIN MEDICATIONS: See below OTHER MEDICATIONS: Outpatient Medications Prior to Visit Medication Sig Note Dispense Refill ??? DULoxetine (CYMBALTA) 30 MG capsule Take 1 Capsule by mouth daily. After 1 week, take 2 tabs (60mg) daily (Patient taking differently: Take 60 mg by mouth daily.) 60 Capsule 3 ??? Etodolac (LODINE) 400 MG tablet TK 1 T PO BID ??? etodolac (LODINEXL) 400 MG 24 hour release tablet Take 400 mg by mouth two times a day. ??? levothyroxine (SYNTHROID) 100 MCG tablet Take 100 mcg by mouth daily. ??? liothyronine (CYTOMEL) 5 MCG tablet Take 5 mcg by mouth daily. ??? medical cannabis patient certified Take as instructed . ??? ondansetron (ZOFRAN-ODT) 4 MG disintegrating tablet Take 1-2 Tabs by mouth every 8 hours as needed for Nausea or Other (Headache). 60 Tab 3 ??? progesterone micronized (PROMETRIUM) 200 MG capsule Take 200 mg by mouth daily. ??? SUMAtriptan (IMITREX) 100 MG tablet TAKE 1 TABLET BY MOUTH AT ONSET OF MIGRAINE. REPEAT NEEDED IN 1-2 HOURS. MAX 2 A DAY. MAX 9 DAYS PER MONTH 12 Tablet 0 ??? tiZANidine (ZANAFLEX) 2 MG tablet Take 1 Tablet by mouth every 8 hours as needed. 120 Tablet 1 ??? topiramate (TOPAMAX) 25 MG tablet Take 1 Tablet by mouth daily at bedtime. Take 3 Tablets by Mouth Daily at Bedtime (Patient not taking: Reported on 08/29/2020) 90 Tablet 3 ??? VIENVA 0.1-20 MG-MCG tablet 06/29/2018: Received from: External Pharmacy ??? VYVANSE 30 MG capsule TK 1 C PO QAM ??? HYDROcodone-acetaminophen (NORCO) 5-325 MG tablet Take 1 Tablet by mouth two times daily as needed for Pain. 14 Tablet 0 ??? naltrexone (REVIA) 50 MG tablet Compounded low dose naltrexone. 4.5mg QHS. 60 Tablet 3 Facility-Administered Medications Prior to Visit Medication Dose Route Frequency Provider Last Rate Last Admin ??? fentaNYL (SUBLIMAZE) injection 25-100 mcg 25-100 mcg Intravenous PRN Dakota Apaircio MD 50 mcg at 04/28/18 1001 ??? midazolam (VERSED) injection 1-2 mg 1-2 mg Intravenous PRN Dakota Aparicio MD 2 mg at 04/28/18 0957 PAST MEDICAL AND SURGICAL HISTORY: Reviewed and unchanged from prior visit dating 12/26/[address] Aparicio. SOCIAL AND FAMILY HISTORY: Reviewed and unchanged from prior visit dating 12/26/[address] Aparicio REVIEW OF SYSTEMS: 02/11 systems reviewed and are negative except where noted in the HPI. Objective: Physical Exam: There were no vitals taken for this visit. Estimated body mass index is 24.07 kg/m?? as calculated from the following: Height as of 03/11/20: 1.816 m (5' 11.5). Weight as of 03/11/20: 79.4 kg (175 lb). Physical Exam: General: No apparent distress HEENT: Pupils equal and round, nasopharynx clear, oropharynx clear Resp: Non-labored breathing Heart: Regular rate Abdomen: Non-distended Psych: Appropriate affect and insight, non-pressured speech Skin: No rashes or lesion Review of Interval Labs/Studies: none Assessment: Vivek is a 45 y.o. year-old female with: 1. Chronic occipital neuralgia/occipital headache-pending consult with [facility] to discuss occipital nerve decompression surgery, previously discussed this with Dr. Aparicio. Though she has had some pain relief with medication she does not want to take ongoing daily meds and is looking for more permanent solution. Plan: 1. Investigations: none 2. Consults: Pending consult at [facility], see HPI 3. Interventions:none recommended today 4. Medications: A small amount of Sapphire was given to her today to use for severe pain episodes. She uses with this very sparingly and has had only 2 prescriptions in small quantities over the past 11 months 5. Physical Therapy: continue HEP 6. Psych: Dr. Honeycutt continues to be a resource for you, follow-up with him as needed. Viky Fuentes PA-C is also a good resource for integrative health approaches 7. Follow Up: as needed ERY REPRESENTATIVE documented in this encounter Plan of Treatment Not on filedocumented as of this encounter Visit Diagnoses Diagnosis Spondylosis of cervical region without m yelopathy or radiculopathy (HRC) - Primary Cervical spondylosis without myelopathy Occipital neuralgia of left side documented in this encounter Care Teams Supervisor Mending Relationship Specialty Start Date End Date Needs Pcp, Assignment PCP - General 04/24/14 [place] [address] documented as of this encounter
--- OUTSIDE RECORDS SUMMARY | 2022-08-03 21:29 | XMS_ITS | Encounter Summary ---
:1975 Author Organization [facility] Address [address] [place] [address] Care Team Providers Name Role Phone Unavailable Primary Care Provider Unavailable Encounter Details Date Type Department Care Team Description 07/07/2004 Hospital Encounter HX [facility] Tomas Johnson M.D. [address] [place] [phone] (Wo rk) Social History Tobacco [...] you attend protestant or Patient refused 2021 mandaeism services? Do [...] Encounter - Conversion, Historical Provider Ser - 07/07/2004 12:00 AM CDT [id number] Addended by: PANFILO FIELDS on: 07/07/2004,5:19 PM Comment: tried to call pt at home, that number is no longer valid and she doesn't work at the [employer] either, we have no samples of celexaModules accepted: Progress Notes>> PANFILO Gamez Jul 07, 2004 10:37 AM>> CALL RECEIVED. Contact: Source: [facility] RWHXTRANSX[facility] Document Id: [id number] documented in this encounter Plan of Treatment Not on filedocumented as of this encounter Visit Diagnoses Not on filedocumented in this encounter
--- OUTSIDE RECORDS SUMMARY | 2022-08-03 21:29 | XMS_ITS | Encounter Summary ---
:1975 Author [facility] Address [address], [place] [address] Care Team Providers Name Role Phone Needs Pcp, Assignment Primary Care Provider Reason for Visit Reason Onset Date Comments Refill 05/20/2020 Encounter Details Date Type Department Care Team Description 05/20/2020 Refill [facility] Dakota Aparicio MD Refill [id number] [place] [address] [phone] (Wo rk) Social History Tobacco Use Types [...] documented as of this encounter Nursing Notes Juan Alberto Bermudez RN - 05/20/2020 1:47 PM CDT Received fax from [facility] for topamax refill, called patient as her med list says she doesn't take it since 02/2020. Verified with patient, patient doesn't take this medication anymore and doesn't needany refill. documented in this encounter Plan of Treatment Not on filedocumented as of this encounter Visit Diagnoses Not on filedocumented in this encounter Care Teams Manager Privacy Relationship Specialty Start Date End Date Needs Pcp, Assignment PCP - General 04/24/14 [place] [address] documented as of this encounter
--- OUTSIDE RECORDS SUMMARY | 2022-08-03 21:29 | XMS_ITS | Encounter Summary ---
:1975 Author Organization [facility] Address [address] [place] [address] Care Team Providers Name Role Phone Unavailable Primary Care Provider Unavailable Encounter Details Date Type Department Care Team Description 04/06/2004 Hospital Encounter HX [facility] Cris Brar, RRosieN. [address] [place], [place] [phone] Social History Tobacco Use [...] you attend tenriism or Patient refused 2021 bahai services? Do [...]
--- OUTSIDE RECORDS SUMMARY | 2022-08-03 21:29 | XMS_ITS | Encounter Summary ---
:1975 Author Organization Counts include 234 beds at the [facility] Address [address], [place] [address] Care Team Providers Name Role Phone Needs Pcp, Assignment Primary Care Provider Reason for Visit Reason Comments Refill Encounter Details Date Type Department Care Team Description 04/30/2021 Refill [facility] Barbara Lindsay APRN, ACCOUNTS PAYABLE PROFESSIONAL Refill [address] [place] [address] [place] [address] [phone] (Wo rk) Social History Tobacco Use Types [...] on file documented as of this encounter Plan of Treatment Not on filedocumented as of this encounter Visit Diagnoses Not on filedocumented in this encounter Care Teams Feather Separator Relationship Specialty Start Date End Date Needs Pcp, Assignment PCP - General [facility]/24/14 [facility] [place] [address] documented as of this encounter
--- OUTSIDE RECORDS SUMMARY | 2022-08-03 21:29 | XMS_ITS | Encounter Summary ---
:1975 Author Organization [facility] [place] [facility] Address [address] [place] [address] Care Team Providers Name Role Phone Unavailable Primary Care Provider Unavailable Encounter Details Date Type Department Care Team Description 07/17/2004 Hospital Encounter HX NO MAPPING Brittany Stanley M.D. [address] [place], [place] [phone] (Wo rk) Social History [...] you attend buddhism or Patient refused 2021 christian services? Do you belong to any clubs [...] slept in a skilled nursing (including now)? Sex Assigned at Date Recorded Female 06/22/2022 8:38 AM CDT documented as of this encounter Plan of Treatment Not on filedocumented as of this encounter Visit Diagnoses Not on filedocumented in this encounter
--- OUTSIDE RECORDS SUMMARY | 2022-08-03 21:29 | XMS_ITS | Encounter Summary ---
:1975 Author [facility] Address [address] [place] [address] Care Team Providers Name Role Phone Needs Pcp, Assignment Primary Care Provider Reason for Visit Reason Onset Date Comments Refill 07/21/2020 Refill 07/28/2020 Encounter Details Date Type Department Care Team Description 07/21/2020 Refill [facility] Kaylah Morgan RN Refill; Refill [address] [place], [place] [address] Social History Tobacco Use Types [...] documented as of this encounter Nursing Notes Kaylah Morgan RN - 07/28/2020 2:09 PM CDT Pt did not call back with dosage. Encounter closed documented in this encounter Plan of Treatment Not on filedocumented as of this encounter Visit Diagnoses Not on filedocumented in this encounter Care Teams Bush Hog Operator Relationship Specialty Start Date End Date Needs Pcp, Assignment PCP - General 04/24/14 [place] [address] documented as of this encounter
--- OUTSIDE RECORDS SUMMARY | 2022-08-03 21:29 | XMS_ITS | Encounter Summary ---
:1975 Author Organization [facility] Address [address] [place] [address] Care Team Providers Name Role Phone Unavailable Primary Care Provider Unavailable Encounter Details Date Type Department Care Team Description 06/25/2001 Hospital Encounter HX NO MAPPING Rahul Martins M.D. [address] [place] [address] 601 Social History Tobacco Use Types Packs/Day Years [...] you attend mormonism or Patient refused 2021 sabianism services? Do [...]
--- OUTSIDE RECORDS SUMMARY | 2022-08-03 21:29 | XMS_ITS | Encounter Summary ---
:1975 Author Organization [facility] Address [address], [place] [address] Care Team Providers Name Role Phone Needs Pcp, Assignment Primary Care Provider Reason for Visit Reason Comments Follow-up neck pain Encounter Details Date Type Department Care Team Description 02/09/2021 Telemedicine [facility] Barbara Lindsay, Occipital neuralgia of left side (Primary Dx); [address] [facility] GREGOR BENJAMIN Occipital headache [place], [place] [address] [address] [facility] [phone] [place] [address] (Wo rk) Social History Tobacco Use Types [...] on file documented as of this encounter Last Filed Vital Signs Vital Sign Reading Time Taken Comments Blood Pressure - - Pulse - - Temperature - - Respiratory Rate - - Oxygen Saturation - - Inhaled Oxygen Concentration - - Weight 77.6 kg (171 lb) 02/09/2021 7:43 AM CDT Height - - Body Mass Index 23.52 03/11/2020 10:08 AM CDT documented in this encounter Progress Notes Barbara Lindsay, SOURAV, GRINDING OPERATOR - 02/09/2021 8:00 AM CDT Subjective: Thank you for allowing us to continue to participate in the care of your patient, Vivek Echeverria. She was seen at the [facility] by Barbara Lindsay CNP on 02/09/2021. As you know, Vivek Echeverria is a pleasant 45 y.o. year-old female who we initially evaluated on 12/26/15 At that time, she presented with occiptial neuralgia/migraine headaches. She returns today for further followup.Today's appointment was conducted via video using [employer] secondary to the Covid-19 pandemic. The patient is in [place]. Vivek is well known to Dr. Aparicio who has been treating her occipital neuralgia since 2016. From his most recent video visit with her in January 2020 ?? To date we have done a left TON RFA and occipital nerve blocks. She's also had a cervical epidural in the past. She had questionable response to the cervical RFA. What she may be a candidate for would be an implantable occipital nerve stimulator, versus nerve decompression or ablation. The chronic pain program may also be of benefit. Vivek indicates that she continues to have daily pain and is in a flare that is the worst it has been in a while. She describes a severe knifelike stabbing in the occiput. She is hoping that a vacation to [place] will help ease her symptoms. She was told by Dr. Welsh that she was not a good candidate for occipital decompression. She is feeling very down due to not having that option locally. She believes there is a possibility of filing an appeal to see the [facility] physician who performs this surgery, so it going to pursue that further. She is wondering if there are any other treatment options. She restarted Topamax. She is having a dry mouth, brain fog and decreased sex drive. She has been taking it for two weeks and recalls needing to take it for up to a month in the past before she had benefit. She is working with a chiropractor who is adjusting my sphenoid. She sees him twice a week. Frustrated that she stuck in cycle of pain that has been present for several weeks, nothing is breaking the cycle. To review, she had many visits with iVky Fuentes PA-C as well as Dr. Honeycutt. She reports gaining insight from them and following different treatment approaches recommended by them. She has not tried biofeedback. Management history and therapy response since we have been treating Vivek Echeverria includes: Cervical facet joint injection at C2/3 01/12/17. Had relief during the local anesthetic phase (8->2/10), but no relief during the steroid phase. Trigger point injections - no help. Cervical RFA C2/3 07/21/17 - not sure if this is helping??(helped with headaches) CURRENT PAIN MEDICATIONS: cymbalta 30 mg BID norco - prn, 4 remaining Tizanidine 2 mg PRN Topamax - 75mg/day medical cannabis OTHER MEDICATIONS: Outpatient Medications Prior to Visit Medication Sig Dispense Refill ??? DULoxetine (CYMBALTA) 30 MG capsule Take 2 Capsules by mouth daily. 60 Capsule 3 ??? HYDROcodone-acetaminophen (NORCO) 5-325 MG tablet Take 1 Tablet by mouth daily as needed for Pain. 7 Tablet 0 ??? levothyroxine (SYNTHROID) 100 MCG tablet Take 100 mcg by mouth daily. ??? medical cannabis [...] hours as needed. 120 Tablet 1 ??? VYVANSE 30 MG capsule TK 1 C PO QAM Facility-Administered Medications Prior to Visit Medication Dose Route Frequency Provider Last Rate Last Admin ??? fentaNYL (SUBLIMAZE) injection 25-100 mcg 25-100 mcg Intravenous PRN Dakota Aparicio MD 50 mcg at 04/28/18 1001 ??? midazolam (VERSED) injection 1-2 mg 1-2 mg Intravenous PRN Dakota Aparicio MD 2 mg at 04/28/18 0947 PAST MEDICAL AND SURGICAL HISTORY: Reviewed and unchanged from prior visit dating 12/26/[address] Aparicio. SOCIAL AND FAMILY HISTORY: Reviewed and unchanged from prior visit dating 12/26/[address] Aparicio REVIEW OF SYSTEMS: 02/11 systems reviewed and are negative except where noted in the HPI. Objective: Physical Exam: Weight 77.6 kg (171 lb). Estimated body mass index is 23.52 kg/m?? as calculated from the following: Height as of 03/11/20: 1.816 m (5' 11.5). Weight as of this encounter: 77.6 kg (171 lb). Physical Exam: General: No apparent distress HEENT: Pupils equal and round, nasopharynx clear, oropharynx clear Resp: Non-labored breathing Heart: Regular rate Abdomen: Non-distended Psych: Appropriate affect and insight, non-pressured speech Skin: No rashes or lesion Review of Interval Labs/Studies: none Assessment: Vivek is a 45 y.o. year-old female with: 1. Chronic occipital neuralgia/occipital headache-pending consult with Dr. Welsh to discuss occipital nerve decompression surgery, previously discussed this with Dr. Aparicio. Though she has had some pain relief with medication she does not want to take ongoing daily meds and is looking for more permanent solution. I let the patient know that I reviewed her case with Dr Rosie Aparicio as well to gain his perspective since he has known her for many years. I educated her on the option of peripheral nerve stimulation. She will plan on getting an occipital nerve block with Dr. Aparicio when she returns from her trip. She is also going to try to get insurance approval for a consult for occipital nerve decompression with clarisa at the [facility]. Plan: 1. Investigations: none 2. Consults: None 3. Interventions: I recommended she have occipital nerve blocks/TPI with Dr. Aparicio to help break this cycle of pain. These have provided some temporizing in the past. Peripheral nerve stimulation may be an option (outside of [facility]). 4. Medications: A small amount of [place] was given to her last week to use for severe pain episodes. She uses with this very sparingly. No RX requested today. She has restartedTopamax 25mg and is increasing by 25mg each week to a goal of 50mg twice a day. She continues to use medical cannabis but wants to use it less due to feeling high and increased appetite. 5. Physical Therapy: continue HEP 6. Psych: Dr. Honeycutt continues to be a resource for you. Today we discussed returning for biofeedback since you have not tried that technique before. Viky Fuentes PA-C is also a good resource for integrative health approaches 7. Follow Up: for TPI/ONB with Dr. Aparicio, biofeedback with Dr. Honeycutt Total time spine on visit 35 minutes including time spent preparing for the visit by reviewing past records, ordering medications , formulating a plan of care, counseling the patient and documenting the visit. documented in this encounter Plan of Treatment Not on filedocumented as of this encounter Visit Diagnoses Diagnosis Occipital neuralgia of left side - Prima ry Occipital headache Headache documented in this encounter Care Teams [employer] Stitcher Relationship Specialty Start Date End Date Needs Pcp, Assignment PCP - General 04/24/14 [place] [address] documented as of this encounter
--- OUTSIDE RECORDS SUMMARY | 2022-08-03 21:29 | XMS_ITS | Encounter Summary ---
:1975 Author Organization [facility] Address [address] [place] [address] Care Team Providers Name Role Phone Unavailable Primary Care Provider Unavailable Encounter Details Date Type Department Care Team Description 07/30/2004 Hospital Encounter HX [facility] Tomas Johnson M.D. [address] [place] [phone] (Wo rk) Social History Tobacco [...] you attend hinduism or Patient refused 2021 gnosticist services? Do [...] encounter Progress Notes Trav Evans M.D. - 07/30/2004 8:30 AM CDT [id number] Rash persists, is better with steriods and benadryl, but has become more significant on chest and neck Will get Derm consult leon 12/04/03, follow up cyst on ovarary, will RTC for another US, wds Source: [facility] Document Id: [id number] Electronically signed by Conversion, [facility] Computational Sciences Professor [id number] at 04/04/2017 7:00 PM CDT documented in this encounter Plan of Treatment Not on filedocumented as of this encounter Visit Diagnoses Not on filedocumented in this encounter
--- OUTSIDE RECORDS SUMMARY | 2022-08-03 21:29 | XMS_ITS | Encounter Summary ---
:1975 Author Organization [facility] Address [address] [place] [address] Care Team Providers Name Role Phone Needs Pcp, Assignment Primary Care Provider Reason for Visit Reason Onset Date Comments Refill 12/22/2020 Encounter Details Date Type Department Care Team Description 12/22/2020 Refill [facility] Lila Garcia, RN Refill [address] [place], [place] [address] Social History Tobacco Use Types [...] on filedocumented in this encounter Care Teams Supply Crib Attendant Relationship Specialty Start Date End Date Needs Pcp, Assignment PCP - General 04/24/14 [place] [address] documented as of this encounter
--- OUTSIDE RECORDS SUMMARY | 2022-08-03 21:29 | XMS_ITS | Encounter Summary ---
:1975 Author Organization [facility] Address [address] [place] [address] Care Team Providers Name Role Phone Unavailable Primary Care Provider Unavailable Encounter Details Date Type Department Care Team Description 06/25/2001 Hospital Encounter HX NO MAPPING Provider, Historical [...] you attend christian or Patient refused 2021 druze services? Do you belong to any clubs [...] Miscellaneous - Conversion, Historical Provider Ser - 06/25/2001 12:00 AM CDT [id number] *-*-*-*-* SEE SCANNED REPORT *-*-*-*-* Source: [facility] Document Id: [id number] documented in this encounter Plan of Treatment Not on filedocumented as of this encounter Visit Diagnoses Not on filedocumented in this encounter
--- OUTSIDE RECORDS SUMMARY | 2022-08-03 21:29 | XMS_ITS | Encounter Summary ---
:1975 Author Organization [facility] Address [address] [place] [address] Care Team Providers Name Role Phone Unavailable Primary Care Provider Unavailable Encounter Details Date Type Department Care Team Description 07/21/[address] [facility] Jessica Corbin M.D. Social History Tobacco Use [...] you attend congregational or Patient refused 2021 congregation services? Do [...] encounter Progress Notes Jessica Coles M.D. - 07/21/2004 10:45 AM CDT [id number] probable cellulitis below left breast from itching after bug bit. breast exam is otherwise normal. Try OTC Abx cream and if not relsoving with get PO abx. will get follow up USG for ovarian cyst. KD Source: [facility] RWMCHXTRANSXRTFSYS Document Id: [id number] documented in this encounter Plan of Treatment Not on filedocumented as of this encounter Visit Diagnoses Not on filedocumented in this encounter
--- OUTSIDE RECORDS SUMMARY | 2022-08-03 21:29 | XMS_ITS | Encounter Summary ---
:1975 Author Organization [facility] Address [address] [place] [address] Care Team Providers Name Role Phone Needs Pcp, Assignment Primary Care Provider Reason for Referral Consult/Transfer Care (Routine) - Closed Specialty Diagnoses / Procedures Referred By Contact Refer red To Contact Diagnoses 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) Occipital neuralgia of left side Barbara Lindsay APRN, CNP [address] [place] [address] [place] [address] 1 Referral ID Status Reason Start Date Expiration Date Visits Requ ested Visits Authorized [id number] Closed 01/19/2021 04/20/2022 1 1 Scheduling Instructions Your provider has recommended an appoint ment with [facility]. You may call [phone] to schedule your appoi ntment. We suggest you call your health insurance company about your coverage an d benefits for this appointment. Reason for Visit Reason Comments Follow-up neck pain Encounter Details Date Type Department Care Team Description 01/19/2021 Telemedicine [facility] Barbara Lindsay, Spondylosis of cervical lisa on without myelopathy or radiculopathy (Primary Dx); [address] [facility] GREGOR BENJAMIN Occipital neuralgia of left side [place], [place] [address] [facility] [place] [address] [phone] (Wo rk) Social History Tobacco Use Types [...] - Inhaled Oxygen Concentration - - Weight 79.4 kg (175 lb) 01/19/2021 8:23 AM CDT Height - - Body Mass Index 24.07 03/11/2020 10:08 AM CDT documented in this encounter Patient Instructions Patient InstructionsTrBarbara ellison, SPINNING LATHE OPERATOR HYDRAULIC, RECREATION COUNSELOR - 01/19/2021 8:40 AM CDT 1. Investigations: none 2. Consults: None 3. Interventions: I recommended she have occipital nerve blocks/TPI with Dr. Aparicio to help break this cycle of pain. These have provided some temporizing in the past. 4. Medications: A small amount of Hessel was given to her today to use for severe pain episodes. She uses with this very sparingly and has had only 3 prescriptions in small quantities over the past year. UNIT SECY reviewed- #14 Hessel prescribed on 12/23/20by Dr. Aparicio. Renewed RX today. We discussed restarting Topamax 25mg qhs and increasing by 25mg each week to a goal of 50mg twice a day. She continues to use medical cannabis but wants to use it less due to feeling high and increase appetite. 5. Physical Therapy: continue HEP 6. Psych: Dr. Honeycutt continues to be a resource for you. Today we discussed returning for biofeedback since you have not tried that technique before. Viky Fuentes PA-C is also a good resource for integrative health approaches 7. Follow Up: for TPI/ONB with Dr. Aparicio, biofeedback with Dr. Honeycutt documented in this encounter Progress Notes Barbara Lindsay APRN, CNP - 01/19/2021 8:40 AM CDT Subjective: Thank you for allowing us to continue to participate in the care of your patient, Vivek Echeverria. She was seen at the [facility] by Barbara Lindsay CNP on 01/19/2021. As you know, Vivek Echeverria is a pleasant 45 y.o. year-old female who we initially evaluated on 12/26/15 At that time, she presented with occiptial neuralgia/migraine headaches. She returns today for further followup.Today's appointment was conducted via video using [employer] secondary to the Covid-19 pandemic. Vivek is [...] benefit. She recently requested a referral to [facility] for her occipital nerve decompression surgery, however it was denied by her insurance. She found a new local physicians- Dr. Jesus Welsh in [facility], who performed occipital nerve decompression - however he does not take ins urance. She is hopeful that since she was given PA by [facility] for this procedure he would consider taking her insurance. She is working with a chiropractor who is adjusting my sphenoid. She sees him twice a week. Frustrated that she stuck in cycle of pain that has been present for several weeks, nothing is breaking the cycle. She is very tearful today and spends quite a bit of the visit discussing her frustration with her pain, lack of progress and how it impacts her life. She appeared frustrated when I used the term headache (when I referred to indications for certain medications). She explained to me that her pain is a severe knifelike stabbing in the occiput, and not a headaches. She indicates that a few months back she decided to stop all of her daily medications because she was not feeling like herself. However, she wanted to revisit medications today and would consider restarting something. She does not like using medical cannabis so much and states I'm high all day and I can't hide it. She uses Hessel extremely sparingly and has only had 2 prescriptions for this medication in 2019 for a total quantity of around 30 tablets. One new RX in December for #14. UNIT SECY reviewed.She requests a refill of Hessel She had many visits with Viky Fuentes PA-C as well as Dr. Honeycutt. She reports gaining insight fromthem and following different treatment approaches recommended by [...] MEDICATIONS: cymbalta 30 mg BID norco - none remaining Tizanidine 2 mg PRN Topamax - not taking medical cannabis OTHER MEDICATIONS: Outpatient Medications Prior to Visit Medication Sig Note Dispense Refill ??? DULoxetine (CYMBALTA) 30 MG capsule Take 2 Capsules by mouth daily. 60 Capsule 3 ??? HYDROcodone-acetaminophen (NORCO) 5-325 MG tablet Take 1 Tablet by mouth two times daily as needed for Pain. (Patient not taking: Reported on 01/19/2021) 14 Tablet 0 ??? levothyroxine (SYNTHROID) 100 MCG [...] capsule TK 1 C PO QAM ??? Etodolac (LODINE) 400 MG tablet TK 1 T PO BID ??? etodolac (LODINEXL) 400 MG 24 hour release tablet Take 400 mg by mouth two times a day. ??? liothyronine (CYTOMEL) 5 MCG tablet Take 5 mcg by mouth daily. ??? topiramate (TOPAMAX) 25 MG tablet Take 1 Tablet by mouth daily at bedtime. Take 3 Tablets by Mouth Daily at Bedtime (Patient not taking: Reported on 08/29/2020) 90 Tablet 3 ??? VIENVA 0.1-20 MG-MCG tablet 06/29/2018: Received from: External Pharmacy Facility-Administered Medications Prior to Visit Medication Dose [...] in the HPI. Objective: Physical Exam: Weight 79.4 kg (175 lb). Estimated body mass index is 24.07 kg/m?? as calculated from the following: Height as of 03/11/20: 1.816 m (5' 11.5). Weight as of this encounter: 79.4 kg (175 lb). Physical Exam: General: [...] solution. Plan: 1. Investigations: none 2. Consults: None 3. Interventions: I recommended she have occipital nerve blocks/TPI with Dr. Aparicio to help break this cycle of pain. These have provided some temporizing in the past. 4. Medications: A small amount of Hessel was given to her today to use for severe pain episodes. She uses with this very sparingly and has had only 3 prescriptions in small quantities over the past year. UNIT SECY reviewed- #14 Hessel prescribed on 12/23/20by Dr. Aparicio. Renewed RX today. We discussed restarting Topamax 25mg qhs and increasing by 25mg each week to a goal of 50mg twice a day. She continues to use medical cannabis but wants to use it less due to feeling high and increase appetite. 5. Physical Therapy: continue HEP 6. [...] Name Type Priority Associated Diagnoses Order S chedule Pain-Medical Adult Referral Routine Spondylosis of cervica l Ordered: 01/19/2021 Consult [facility] region without myelopathy or radiculopathy Occipital neuralgia of left side documented as of this encounter Visit Diagnoses Diagnosis Spondylosis of cervical region without m yelopathy or radiculopathy ([facility]) - Primary Cervical spondylosis without myelopathy Occipital neuralgia of left side documented in this encounter Care Teams Rn Documentation Relationship Specialty Start Date End Date Needs Pcp, Assignment PCP - General 04/24/14 [place] [address] documented as of this encounter
--- OUTSIDE RECORDS SUMMARY | 2022-08-03 21:29 | XMS_ITS | Encounter Summary ---
:1975 Author Organization [facility] Address [address], [place] [address] Care Team Providers Name Role Phone Needs Pcp, Assignment Primary Care Provider Reason for Visit Reason Comments Medication Request Encounter Details Date Type Department Care Team Description 08/25/2020 Telephone [facility] Lu Campos, Medication Request [address] [facility] RN [place], [place] [address] Social History Tobacco Use Types [...] documented as of this encounter Nursing Notes Lu Campos RN - 08/25/2020 3:58 PM CDT Vivek phones requesting refill norco since c/o 3 days left sided occipital pain . States she has been taking medicinal cannabis for several months and is tired of feeling high. Patient has restartedtopamax and continues duloxetine. Has appt. Scheduled with [facility] or [place] for occipital nerve pain. Patientadvised since she has not been seen since 02-12-20, appt. Required. 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 documented in this encounter Plan of Treatment Not on filedocumented as of this encounter Visit Diagnoses Not on filedocumented in this encounter Care Teams Director Group Sales Relationship Specialty Start Date End Date Needs Pcp, Assignment PCP - General 04/24/14 [place] [address] documented as of this encounter
--- OUTSIDE RECORDS SUMMARY | 2022-08-03 21:29 | XMS_ITS | Encounter Summary ---
:1975 Author Organization [facility] Address [address] [place] [address] Care Team Providers Name Role Phone Unavailable Primary Care Provider Unavailable Encounter Details Date Type Department Care Team Description 06/08/2004 [facility] Tomas Johnson M.D. [address] [place] [phone] (Wo rk) Social History Tobacco [...] you attend christian or Patient refused 2021 faith services? Do [...] encounter Progress Notes Trav Evans M.D. - 06/08/2004 2:30 PM CDT [id number] leon 12/04/04, is SOB,heart is beating heavy,heaviness in abdomin, tires easily uterus is not tender Vivek describes signs and sx of hyperventilation. She is advised about this and the normal physiology that is happening. She is advised about what she can do. She will call if other concerns. wds Source: [facility] RWHXTRANSXRT[facility] Document Id: [id number] documented in this encounter Plan of Treatment Not on filedocumented as of this encounter Visit Diagnoses Not on filedocumented in this encounter
--- OUTSIDE RECORDS SUMMARY | 2022-08-03 21:29 | XMS_ITS | Encounter Summary ---
:1975 Author Organization [facility] Address [address] [place] [address] Care Team Providers Name Role Phone Unavailable Primary Care Provider Unavailable Encounter Details Date Type Department Care Team Description 05/22/2004 Hospital Encounter HX NO MAPPING Trav Evans M.D. [address] [place] [phone] (Wo rk) Social History Tobacco [...] you attend jain or Patient refused 2021 buddhism services? Do you belong to any clubs [...]
--- OUTSIDE RECORDS SUMMARY | 2022-08-03 21:29 | XMS_ITS | Encounter Summary ---
:1975 Author Organization [facility] Address [address] [place] [address] Care Team Providers Name Role Phone Unavailable Primary Care Provider Unavailable Encounter Details Date Type Department Care Team Description 06/19/2004 Hospital Encounter [facility] Ameya Haji M.D. [address] [place], [place] [phone] (Wo rk) Social History [...] attend oriental orthodox or Patient refused 2021 episcopalian services? [...] documented as of this encounter Progress Notes Virginia Redd L.P.N. - 06/19/2004 2:00 PM CDT [id number] leon 12/04/03,declines to haver triple test, has been having more headaches [facility] Document Id: [id number] Electronically signed by Conversion, [facility] Forklift Driver [id number] at 04/04/2017 11:07 PM CDT documented in this encounter Plan of Treatment Not on filedocumented as of this encounter Visit Diagnoses Not on filedocumented in this encounter
--- OUTSIDE RECORDS SUMMARY | 2022-08-03 21:29 | XMS_ITS | Encounter Summary ---
:1975 Author Organization [facility] Address [address] [address] Care Team Providers Name Role Phone Needs Pcp, Assignment Primary Care Provider Reason for Visit Reason Comments Medication Questions Encounter Details Date Type Department Care Team Description 12/11/2020 Telephone [facility] Barbara Lindsay, Medication Questions [address] [facility] GREGOR BENJAMIN [place], [place] [address] 8100 [facility] [phone] [place] [address] (Wo rk) Social History Tobacco Use Types [...] documented as of this encounter Nursing Notes Barbara Lindsay APRN, GREGOR - 12/11/2020 3:39 PM CST Cymbalta refilled and sent to her pharmacy ARE CASE WORKER Kaylah Morgan RN - 12/11/2020 1:19 PM CST Refill request from heather. Last clinic visit was 09/01/20 did not discuss Duloxetine on Medication plan: 4. Medications: A small amount of Jackhorn was given to her today to use for severe pain episodes. She uses with this very sparingly and has had only 2 prescriptions in small quantities over the past 11 months Can we authorize standing orders for this if its not mentioned in plan? Plus it needs to be re-written due to taper being completed. ARE CASE WORKER documented in this encounter Plan of Treatment Not on filedocumented as of this encounter Visit Diagnoses Not on filedocumented in this encounter Care Teams Welder Setter Resistance Machine Relationship Specialty Start Date End Date Needs Pcp, Assignment PCP - General 04/24/14 [place] [address] documented as of this encounter
--- OUTSIDE RECORDS SUMMARY | 2022-08-03 21:29 | XMS_ITS | Encounter Summary ---
:1975 Author Organization [facility] Address [address] [place] [address] Care Team Providers Name Role Phone Unavailable Primary Care Provider Unavailable Encounter Details Date Type Department Care Team Description 07/03/2004 Hospital Encounter [facility]X [facility] Tomas Johnson M.D. [address] [place] [phone] (Wo rk) Social History Tobacco [...] you attend methodist or Patient refused 2021 congregation services? Do [...] Encounter - Conversion, Historical Provider Ser - 07/03/2004 12:00 AM CDT [id number] >> LUIS PORSCHE Fri Jul 03, 2004 12:21 PM >> CALL RECEIVED. Contact: pt had samples of celexa & is needing more. Checked for samples in clinic but found none. Accepting this Rx will FAX it directly to the pharmacy. Source: [facility] RWHXTRANSXSYS Document Id: [id number] documented in this encounter Plan of Treatment Not on filedocumented as of this encounter Visit Diagnoses Not on filedocumented in this encounter
--- OUTSIDE RECORDS SUMMARY | 2022-08-03 21:29 | XMS_ITS | Encounter Summary ---
:1975 Author Organization [facility] Address [address] [place] [address] Care Team Providers Name Role Phone Unavailable Primary Care Provider Unavailable Encounter Details Date Type Department Care Team Description 05/15/2004 Hospital Encounter HX [facility] Tomas Johnson M.D. [address] [place] [phone] (Wo rk) Social History Tobacco [...] you attend advent or Patient refused 2021 catholic services? Do [...] Notes Conversion, Historical Provider Ser - 05/15/2004 11:00 AM CDT [id number] Addended by: TRAV ODEN on: 05/26/2004,9:19 AMModules accepted: Progress NotesVivek is a 28 year old white female, , here for Ob intake exam. She has been breast feeding and periods hav e been a little irreg.Her previous deliveries were at 37 and 36 weeks. She had a LEEP in 1991. 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 LEEP for cx dysplasia 1991CURRENT MEDICATIONS: Current prescript ions:CELEXA 20 MG OR TABS 1 TABLET DAILYFOLIC ACID 800 MCG OR TABS 1 TABLET DAILYALLERGIES: No Known AllergiesFamily HX: Review of patient's family history indicates: Alzheimers No family hx of Cancer Maternal Grandmother Comment: denise ast Cancer Father Comment: skin Diabetes Maternal Grandmother Heart Paternal Grandfather Comment: hd Thyroid Mother Comment: graves Colon CA No family hx of REVIEW OF SYSTEMS: Otherwise negative unless specified in HPI. NEUROLOGIC: negativeEYES: negativeENT: negativeGI: negativeBREAST: negative : negativeGYN: p regnantCV: negativePULMONARY: negativeMUSCULOSKELETAL: negativePSYCH: negativeSKIN: negativeSo c Hx: Social History Marital Status: Spouse Name: Years o f Education: 15 Number of children: 2 Social History Main Topics Tobacco Use: Never Alcohol Use: No Drug Use: No Sexually Active: Yes O ther Topics Concern None on fileSocial History Narrative None on filePHYSICAL E XAM: This is a well-developed, well-nourished female in no apparent distress. VITALS: as aboveNeruo : grossly intactEYES: JARRET, EOM's intact. ENT: oral cavity normal, no neck nodes, thyroid not e nlarged, neck suppleLung CTA, no wheezing, easy respairationsHeart: RRR, S1 and S2 clear, no murmu rBack: no spinal or CVA tendernessBreast: bilateral implants, nontender, no mass or axillary lympha denopathy.ABD: soft, nontender, no masses, FHT 164Pelvic: normal ext gen, normal BUS, no lesions, n o adenopathyUrethra: normal meatusVagina: normal, no lesions. Cervix: Pap and GC/Chlamydia done, n ormal with out lesion or dischargeUterus: 12 wk size with out irregularities or tenderness, anterior .Adnexa: nontender with out masses or iregularities, ovaries not palpable.RV:confirms above with no lesions palpableEXT: no edema, calf tenderness or significant varicositiesSkin: no lesions of con cernAssessment: OB intake examPlan: Ob intake history and teaching labs, TSH Ultrasound to verify dates with hx of delivery. No circlage at this time (risks of p lacing cerclage are higher than baby delivering at 35 wk) Quick Note by: VINCENT LYON on 05/29/04 at 12:09 PM. happy pap sent Source: [facility] Document Id: [id number] documented in this encounter Miscellaneous Notes Miscellaneous - Trav Oden M.D. - 05/15/2004 11:00 AM CDT [id number] Vivek Longoria [address] [place] [id number] May 18, 2004 [id number] Dear Vivek Longoria LAB RESULTS: Your thyroid is NORMAL. The rest of the labs are still pending. If you have any further questions or problems, please contact our office at [phone] in Obstetrics/Gynecology. Sincerely, Trav Oden M.D. OBSTETRICS/GYNECOLOGY Source: [facility] Document Id: [id number] Miscellaneous - Conversion, Historical Provider Ser - 05/15/2004 11:00 AM CDT [id number] Vivek Longoria [address] [place] [address] May 29, 2004 Dear Vivek Longoria, I am happy to inform you that your recent cervical cancer screening test (PAP smear) was normal. Preventative screening such as this helps insure your health for years to come. Congratulations for taking care of yourself! Please contact my office if you have any further questions. [phone]. Sincerely, Trav Oden M.D. OBSTETRICS/GYNECOLOGY [facility] Source: [facility] Document Id: [id number] documented in this encounter Plan of Treatment Not on filedocumented as of this encounter Visit Diagnoses Not on filedocumented in this encounter
--- OUTSIDE RECORDS SUMMARY | 2022-08-03 21:29 | XMS_ITS | Encounter Summary ---
:1975 Author Organization [facility] Address [address] [place] [address] Care Team Providers Name Role Phone Needs Pcp, Assignment Primary Care Provider Reason for Visit Reason Onset Date Comments Refill 07/28/2020 Encounter Details Date Type Department Care Team Description 07/28/2020 Refill [facility] Lu Campos, RN Refill [address] [place], [place] [address] Social History Tobacco Use Types [...] on filedocumented in this encounter Care Teams Liaison Planner Relationship Specialty Start Date End Date Needs Pcp, Assignment PCP - General 04/24/14 [place] [address] documented as of this encounter
--- OUTSIDE RECORDS SUMMARY | 2022-08-03 21:29 | XMS_ITS | Encounter Summary ---
:1975 Author Organization [facility] Address [address] [place] [address] Care Team Providers Name Role Phone Unavailable Primary Care Provider Unavailable Encounter Details Date Type Department Care Team Description 05/26/2004 Hospital Encounter HX [facility] Tomas Johnson M.D. [address] [place] [phone] (Wo rk) Social History Tobacco [...] you attend methodist or Patient refused 2021 restoration services? Do [...]
--- OUTSIDE RECORDS SUMMARY | 2022-08-03 21:30 | XMS_ITS | Encounter Summary ---
:1975 Author Organization [facility] Address [address], [place] [address] Care Team Providers Name Role Phone Needs Pcp, Assignment Primary Care Provider Reason for Visit Reason Onset Date Comments Refill 08/15/2019 Encounter Details Date Type Department Care Team Description 08/15/2019 Refill [facility] Lu Campos, RN Refill [address] [place], [place] [address] Social History Tobacco Use Types [...] yelopathy or radiculopathy Cervical spondylosis without myelopathy documented in this encounter Care Teams Sitecore Developer Relationship Specialty Start Date End Date Needs Pcp, Assignment PCP - General 04/24/14 [place] [address] documented as of this encounter
--- OUTSIDE RECORDS SUMMARY | 2022-08-03 21:30 | XMS_ITS | Encounter Summary ---
:1975 Author Organization [facility] Address [address], [place] [address] Care Team Providers Name Role Phone Needs Pcp, Assignment Primary Care Provider Reason for Visit Reason Onset Date Comments Refill 07/16/2019 Encounter Details Date Type Department Care Team Description 07/16/2019 Refill [facility] Kaylah Morgan RN Refill [address] [place], [place] [address] Social History Tobacco Use Types [...] myelopathy documented in this encounter Care Teams Solderer Assembler Relationship Specialty Start Date End Date Needs Pcp, Assignment PCP - General 04/24/14 [place] [address] documented as of this encounter
--- OUTSIDE RECORDS SUMMARY | 2022-08-03 21:30 | XMS_ITS | Encounter Summary ---
:1975 Author Organization [facility] Address [address] [place] [address] Care Team Providers Name Role Phone Needs Pcp, Assignment Primary Care Provider Reason for Visit Reason Comments Follow-up Encounter Details Date Type Department Care Team Description 02/07/2020 Telemedicine [facility] Occipita l neuralgia, unspecified laterality (Primary Dx); Lara Olivo, PhD, Spondylosis of cervical region without m yelopathy or radiculopathy; [address] [facility] Anxiety about health; [place], [place] [id number] [place] [address] Other specified depressive episodes [id number] (Wo rk) Social History Tobacco Use Types [...] documented as of this encounter Progress Notes Mayo Honeycutt, PhD, LP - 02/07/2020 1:00 PM CDT REPORT TYPE: Clinic Progress Note for Mental Health (Secure) PROVIDER: Mayo Honeycutt, PhD, LP FACILITY/DEPT:[facility] [address] [place] [address] Date of Service: 02/08/20 NAME: Vivek Echeverria : 1975 VISIT LENGTH: START TIME: 1:00 pm END TIME: 2:00 pm Total Time Spent with Provider: 60 minutes I discussed with the patient/parent that this visit is a telehealth visit that will be billed to their insurance. Reviewed potential benefits, risks and confidentiality of telehealth visits. Confirmed patients' current location and contact information. Developed a safety plan to be used in the event of an emergency or safety concerns. Made contingency plan in the event of technical problems. Explained that the appropriateness of telehealth visits is determined by the provider and that patient may need to be seen in clinic in the future. This visit was conducted via Video Location of clinician: home Location of patient: home IDENTIFICATION: PRESENT IN SESSION: Vivek, alone. This provider was present for the entire session. CHIEF COMPLAINT: REASON FOR VISIT: follow up visit APPOINTMENT CONTENT: Vivek presents today for follow-up therapy session to address depression, anxiety and pain management strategies for occipital neuralgia. Current Pain Level: 4/10 (0=no pain, 10=worst pain imaginable) CONTENT DISCUSSED: Patient attended today's session alone. Patient reported that she is in struggling with some of her pain this past week. Specifically, patient has had an increase in lethargy and fatigue dealing with her neuralgia. Patient is having some difficulty getting out of bed, is increasingly irritable, and has some apathy. Patient denied current suicidal or homicidal ideation, but noted she is not doing well. Patient is not currently taking any antidepressants, but is open to this if it is necessary. Patient is also experiencing a lot of guilt in how she relates to her children. Patient engaged in alot of negative self talk over her ability to be available to her children, and partner. Psychologist and patient reviewed how engaging with cognitive distortions often leads to increases in depressionapathy and increases pain. Psychologist and patient also reviewed the chronic pain cycle, and pertinent examples for the patient were provided. Patient was instructed to practice engage in thought catching and will do this until following up with pain psychologist next week CARMELLA 7 No flowsheet data found. PHQ-9: No flowsheet data found. DIAGNOSIS: ICD-10-CM 1. Occipital neuralgia, unspecified laterality M54.81 2. 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 Anxiety about health (HR) F41.8 4. Other specified depressive episodes F32.89 GOALS & OBJECTIVES: MEASURABLE GOALS TO BE ACCOMPLISHED: (Scale used to measure progress: 1=little, no progress, 5=excellent progress/goal met) Cognitive behavioral therapy for chronic pain, acceptance and commitment therapy Pain Strategies include: relaxation techniques, distraction techniques, activity pacing, and cognitive coping INTERVENTION METHODS: CBT, CBT-CP, CBT-I , Mindfulness skills training, Relaxation training, Guided Imagery and Psychoeducational PATIENT RESPONSE TO TREATMENT: Not changed Motivation: engaged and motivated MENTAL STATUS: Normal mental status: Yes Appearance: The patient is well groomed in appropriate attire, normally developed, establishes good eye contact. Motor: Normal gait and station, ambulates independently. No psychomotor retardation or activation. Speech: Normal rate, volume, and rhythm. Normal articulation and prosody. Mood: Congruent with topics discussed Affect: Congruent with mood and within normal range. Thought Process: Thought form is linear and logical with no loosening of associations. Thought Content: No disordered thought or SI/HI endorsed. Orientation: The patient is alert and oriented to person, place, time and situation. Cognition: Short and long-term memory seem intact and without deficit. Intellect, fund of knowledge,attention and focus adequate. Insight: Good, developmentally appropriate. Judgment: Intact with ability to consent to treatment plan. Pain/Illness Behaviors: None observed PLAN: Return visit in 1 week(s). Extended time ([id number]) was required for today???s session due to the patient having a highly complicated psychiatric/medical presentation and the application of specific procedure/technique such as EMDR, hypnosis, and/or pain management strategies. Mayo Honeycutt, PhD, LP Pain Psychologist documented in this encounter Plan of Treatment Not on filedocumented as of this encounter Visit Diagnoses Diagnosis Occipital neuralgia, unspecified lateral ity - Primary Spondylosis of cervical region without m yelopathy or radiculopathy (HRC) Cervical spondylosis without myelopathy Anxiety about health (HRC) Other specified depressive episodes documented in this encounter Care Teams Methods Study Analyst Relationship Specialty Start Date End Date Needs Pcp, Assignment PCP - General 04/24/14 [place], [place] [id number] documented as of this encounter
--- OUTSIDE RECORDS SUMMARY | 2022-08-03 21:30 | XMS_ITS | Encounter Summary ---
:1975 Author Organization [facility] Address [address] [address] Care Team Providers Name Role Phone Needs Pcp, Assignment Primary Care Provider Reason for Visit Reason Onset Date Comments No Show 04/24/2020 Encounter Details Date Type Department Care Team Description 04/24/2020 Telemedicine [facility] Viky Fuentes Encou nters for CENTER PA-C administrative purposes [address] [place] [address] (Primary Dx) [place] [address] [phone] Social History Tobacco Use Types Packs/Day Years [...] documented as of this encounter Progress Notes Viky Fuentes PA-C - 04/24/2020 8:30 AM CDT Attempted to call pt via video at 8:33 and 8:45. No answer. documented in this encounter Plan of Treatment Not on filedocumented as of this encounter Visit Diagnoses Diagnosis Encounters for administrative purposes - Primary Encounters for unspecified administrativ e purpose documented in this encounter Care Teams Buckle Inspector Relationship Specialty Start Date End Date Needs Pcp, Assignment PCP - General 04/24/14 [place] [address] documented as of this encounter
--- OUTSIDE RECORDS SUMMARY | 2022-08-03 21:30 | XMS_ITS | Encounter Summary ---
:1975 Author Organization [facility] Address [address], [place] [address] Care Team Providers Name Role Phone Needs Pcp, Assignment Primary Care Provider Reason for Visit Reason Onset Date Comments No Show 03/20/2020 Encounter Details Date Type Department Care Team Description 03/20/2020 Telemedicine [facility] Viky Fuentes Encou nters for CENTER PA-C administrative purposes [address] [place] [address] (Primary Dx) [place] [address] [phone] Social History Tobacco Use Types Packs/Day Years [...] encounter Progress Notes Viky Fuentes PA-C - 03/20/2020 8:45 AM CDT Patient unavailable for video visit, called x3 and left message with next appt time. documented in this encounter Plan of Treatment Not on filedocumented as of this encounter Visit Diagnoses Diagnosis Encounters for administrative purposes - Primary Encounters for unspecified administrativ e purpose documented in this encounter Care Teams Steward Racetrack Relationship Specialty Start Date End Date Needs Pcp, Assignment PCP - General 04/24/14 [place] [address] documented as of this encounter
--- OUTSIDE RECORDS SUMMARY | 2022-08-03 21:30 | XMS_ITS | Encounter Summary ---
:1975 Author Organization [facility] Address [address] [place] [address] Care Team Providers Name Role Phone Needs Pcp, Assignment Primary Care Provider Reason for Visit Reason Comments HEADACHE,MIGRAINE Encounter Details Date Type Department Care Team Description 04/04/2020 Telemedicine [facility] Viky Fuentes Bilat eral occipital CENTER MINDA neuralgia (Primary [address] Dx) [place], [place] [address] [place], [place] [phone] (Wo rk) Social History Tobacco Use Types [...] encounter Progress Notes Viky Fuentes PA-C - 04/04/2020 9:15 AM CDT Vivek continues care for Chief Complaint Patient presents with ??? HEADACHE,MIGRAINE Vivek has been having a hard time since we last spoke due to Covid, Racism climate and issues with her daughters. She is not working, and expects to go back in 2 weeks.Feeling some depleteon from her current relationship,Not willing to change that at this point.Has not been taking time for herself, feels rather apathetic, Nonproductive Past Medical History: Past Medical History: Diagnosis Date ??? Herniated disc, cervical (ACG) C6-C7 ??? Migraines ??? Trigger finger Other Medications Outpatient Medications Prior to Visit Medication Sig Note Dispense Refill ??? DULoxetine (CYMBALTA) 30 MG capsule Take 1 Capsule by mouth daily. After 1 week, take 2 tabs (60mg) daily 60 Capsule 3 ??? etodolac (LODINEXL) 400 MG 24 hour release tablet Take 400 mg by mouth two times a day. ??? HYDROcodone-acetaminophen (NORCO) 5-325 MG tablet Take 1 Tablet by mouth two times daily as needed for Pain. (Patient not taking: Reported on 03/11/2020) 14 Tablet 0 ??? levothyroxine (SYNTHROID) 100 MCG tablet Take 100 mcg by mouth daily. ??? liothyronine (CYTOMEL) 5 MCG tablet Take 5 mcg by mouth daily. ??? medical cannabis patient certified Take as instructed . ??? naltrexone (REVIA) 50 MG tablet Compounded low dose naltrexone. 4.5mg QHS. 60 Tablet 3 ??? ondansetron (ZOFRAN-ODT) 4 MG disintegrating tablet [...] at Bedtime (Patient not taking: Reported on 03/11/2020) 90 Tablet 3 ??? VIENVA 0.1-20 MG-MCG tablet 06/29/2018: Received from: External Pharmacy Facility-Administered Medications Prior to Visit Medication Dose Route Frequency Provider Last Rate Last Dose ??? fentaNYL (SUBLIMAZE) injection 25-100 mcg 25-100 mcg Intravenous PRN Dakota Aparicio MD 50 mcg at 04/28/18 1001 ??? midazolam (VERSED) injection 1-2 mg 1-2 mg Intravenous PRN Dakota Aparicio MD 2 mg at 04/28/18 0928 Objective: Physical Exam: Estimated body mass index is 24.07 kg/m?? as calculated from the following: Height as of 03/11/20: 1.816 m (5' 11.5). Weight as of 03/11/20: 79.4 kg (175 lb). Appearance: Grooming: appropriate Assistive Devices: none Physical Exam: General: Scattered Resp: shallow breathing Psych: Appropriate affect and insight, non-pressured speech Assessment: Vivek is a 44 y.o. year-old female with: Bilateral occipital neuralgia (primary encounter diagnosis) Plan: Reviewed: depletion and renewal, felt sense, re framing, NS regulation, journaling. Educated on: Educated on: thought and belief challenging especially as it relates to motherhood, setting boundaries, modeling and finding time for self, and resources for book: Motherwhelmed. Recommended doing one thing for her self in next 2 weeks. Next visit will work on: Alarm system and Central Sensitization,Daily Plan and Hypersensitization, Amygdala Hijack, Stress management pathway, Increase resiliency, Meditation, Challenge to overcome andUplifting emotion and gratitude, Emotional Regulation and Sensory kit, Appreciation Exercise and Depl etion and Renewal, RAIN, yoga practice, sound therapy. This visit was conducted via video. Location of clinician: home Location of patient: home Time spent on video in [id number] contact with patient: 40 min more than half in counseling. documented in this encounter Plan of Treatment Not on filedocumented as of this encounter Visit Diagnoses Diagnosis Bilateral occipital neuralgia - Primary documented in this encounter Care Teams Housing Property Manager Relationship Specialty Start Date End Date Needs Pcp, Assignment PCP - General 04/24/14 [place] [address] documented as of this encounter
--- OUTSIDE RECORDS SUMMARY | 2022-08-03 21:30 | XMS_ITS | Encounter Summary ---
:1975 Author [facility] Address [address] [place] [address] Care Team Providers Name Role Phone Needs Pcp, Assignment Primary Care Provider Reason for Referral Consult/Transfer Care (Routine) - Closed Specialty Diagnoses / Procedures Referred By Contact Refer red To Contact Pain Management Diagnoses Occipital neuralgia, unspecified laterality Anxiety about health ([facility]) 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) Other specified depressive episodes Mayo Honeycutt, [facility], LP [address] [place] [address] [address] [place], [place] [address] [place] [address] Phone: Referral ID Status Reason Start Date Expiration Date Visits Requ ested Visits Authorized [id number] Closed 03/05/2020 06/04/2021 1 1 Scheduling Instructions Your provider has recommended an appoint ment with [facility]. A receptionist scheduler will contact you to assist in setting up this appointment. If you have questions about your upcoming visit, you may call [phone]. This recommended service/s may not be covered by your ins urance coverage. To find out your specific benefit coverage, please call the number on your insurance card. Reason for Visit Reason Comments Follow-up Encounter Details Date Type Department Care Team Description 02/28/2020 Telemedicine [facility] Mayo Honeycutt Occipita l neuralgia, unspecified laterality (Primary Dx); Counseling D, PhD, LP Anxiety about health; [address] [facility] Spondylosis of cervical region without m yelopathy or radiculopathy; [place] [address] [place], [place] Other specified depressive episodes [address] (Wo rk) Social History Tobacco Use Types [...] Progress Notes Mayo Honeycutt, PhD, LP - 02/28/2020 1:00 PM CDT REPORT TYPE: Clinic Progress Note for Mental Health (Secure) PROVIDER: Mayo Honeycutt, PhD, FACILITY/DEPT:[facility] [address] [place] [address] Date of Service: 03/05/20 NAME: Vivek Echeverria : 1975 VISIT LENGTH: START TIME: 1:00 pm END TIME: 2:00 pm Total Time Spent with Provider: 60-minutes I discussed with the patient/parent that this [...] was conducted via Video Location of clinician: clinic Location of patient: home IDENTIFICATION: PRESENT IN SESSION: buffy Doyle. This provider was present for the entire session. CHIEF COMPLAINT: REASON FOR VISIT: follow up visit APPOINTMENT CONTENT: Vivek presents today for follow-up therapy session to address depression, anxiety and pain management strategies for occipital neuralgia. Current Pain Level: 4/10 (0=no pain, 10=worst pain imaginable) CONTENT DISCUSSED: Patient attended today's session via [employer]. Patient reported she did not get out of bed the previous day. Today, she woke up and started taking all of her previous medications. She stated that randall feels hung over when she takes the medication and does not get good enough relief. Patientstated that she specifically struggles with Topamax and noted that she feels irritable and resentfulwhen taking Cymbalta. Patient stated that she is struggling with her interactions with her children as her pain, medication, and duration of the [id number]-sk-[id number] order have significantly decreased her perceived resiliency. Psychologist and patient discussed the importance of setting boundaries, self-care,and relaxation activities. Much time was spent discussing strategies patient can use in the moment to calm herself down and receive respite from child care associate. Patient and psychologist discussed strategies patient will use and patient will follow up with psychologist in the coming week. CARMELLA 7 CARMELLA-7 02/28/2020 02/21/2020 02/14/2020 Feeling nervous 1 1 1 Can't stop worrying 1 1 1 Worrying too much 2 1 1 Trouble relaxing 2 1 1 Restlessness 1 0 2 Easily annoyed 2 2 2 Feeling afraid 0 0 2 How difficult? Somewhat difficult Somewhat difficult Somewhat difficult Total score 9 6 10 Date Performed 02/28/2020 02/21/2020 02/14/2020 Time Performed 12:55 PM 11:55 AM 12:47 PM PHQ-9: PHQ-9 02/28/2020 02/21/2020 02/14/2020 PHQ-9 Score Total 13 11 7 Q1: Loss of Int/Pleas ++ ++ + Q2: Depressed mood ++ ++ + Q3: Sleep problems - - + Q4: Tired/Low Energy ++ ++ + Q5: Appetite change + + + Q6: Feelings of failure ++ ++ + Q7: Concentration Prob +++ ++ + Q8: Slow or Restless + - - Q9: Thought Self Harm - - - Date PHQ9 was completed 02/28/2020 02/21/2020 02/14/2020 DIAGNOSIS: ICD-10-CM 1. Occipital neuralgia, unspecified laterality M54.81 PAIN CONSULT - ADULT 2. Anxiety about health ([facility]) F41.8 PAIN CONSULT - ADULT 3. Spondylosis of cervical region without myelopathy or radiculopathy ([facility]) M47.812 PAIN CONSULT - ADULT 4. Other specified depressive episodes F32.89 PAIN CONSULT - ADULT GOALS & OBJECTIVES: MEASURABLE GOALS TO BE [...] to treatment plan. Pain/Illness Behaviors: None observed Extended time (95069) was required for today???s session due to the patient having a highly complicated psychiatric/medical presentation and the application of specific procedure/technique such as EMDR, hypnosis, and/or pain management strategies. PLAN: Return visit in 1 week(s). documented in this encounter Plan of Treatment Scheduled Referrals Name Type Priority Associated Diagnoses Order S chedule PAIN CONSULT - ADULT Referral Routine Occipital neuralgia, Ordered: 03/05/2020 unspecified late rality Anxiety about he alth Spondylosis of cervical region without myelopathy or radiculopathy Other specified depressive episodes documented as of this encounter Visit Diagnoses Diagnosis Occipital neuralgia, unspecified lateral ity - Primary Anxiety about health ([facility]) Spondylosis of cervical region without m yelopathy or radiculopathy ([facility]) Cervical spondylosis without myelopathy Other specified depressive episodes documented in this encounter Care Teams Ironworker Relationship Specialty Start Date End Date Needs Pcp, Assignment PCP - General 04/24/14 [place] [address] documented as of this encounter
--- OUTSIDE RECORDS SUMMARY | 2022-08-03 21:30 | XMS_ITS | Encounter Summary ---
:1975 Author Organization [facility] Address [address] [place] [address] Care Team Providers Name Role Phone Needs Pcp, Assignment Primary Care Provider Reason for Visit Reason Comments Video Visit Encounter Details Date Type Department Care Team Description 03/13/2020 Telemedicine Mayo Avila Occipita l neuralgia, unspecified laterality (Primary Dx); Counseling D, PhD, LP Anxiety about health; [facility] [address] [facility] Spondylosis of cervical region without m yelopathy or radiculopathy; [place] [address] [place], [place] Other specified depressive episodes [address] (Wo rk) Social History Tobacco Use Types [...] episodes documented in this encounter Care Teams Disk Sharpener Relationship Specialty Start Date End Date Needs Pcp, Assignment PCP - General 04/24/14 [place] [address] documented as of this encounter
--- OUTSIDE RECORDS SUMMARY | 2022-08-03 21:30 | XMS_ITS | Encounter Summary ---
:1975 Author Organization [facility] Address [address] [address] Care Team Providers Name Role Phone Needs Pcp, Assignment Primary Care Provider Reason for Visit Reason Onset Date Comments Refill 05/12/2020 Encounter Details Date Type Department Care Team Description 05/12/2020 Refill [facility] Lila Garcia, RN Refill [address] [place], [place] [address] Social History Tobacco Use Types [...] on filedocumented in this encounter Care Teams Building Code Administrator Relationship Specialty Start Date End Date Needs Pcp, Assignment PCP - General 04/24/14 [place] [address] documented as of this encounter
--- OUTSIDE RECORDS SUMMARY | 2022-08-03 21:30 | XMS_ITS | Encounter Summary ---
:1975 Author Organization [facility] Address [address] [address] Care Team Providers Name Role Phone Needs Pcp, Assignment Primary Care Provider Reason for Visit Reason Onset Date Comments Refill 02/11/2020 Refill 02/12/2020 Encounter Details Date Type Department Care Team Description 02/11/2020 Refill [facility] Dakota Aparicio MD Refill; Refill [address] [address] [address] [place] [address] [phone] (Wo rk) Social History Tobacco Use Types [...] documented as of this encounter Nursing Notes Leyla Mendez RN - 02/12/2020 11:26 AM CDT Informed patient [place] refill refused by Dr. Aparicio as she needs an appointment. Transferred to sole splitter for phone visit scheduling Leyla Mendez RN - 02/11/2020 11:07 AM CDT Images from the original note were not included. ANESTHESIOLOGIST PHYSICIAN for refill: documented in this encounter Plan of Treatment Not on filedocumented as of this encounter Visit Diagnoses Diagnosis Spondylosis of cervical region without m yelopathy or radiculopathy ([facility]) Cervical spondylosis without myelopathy Occipital neuralgia of left side documented in this encounter Care Teams Tape Recorder Repairer Relationship Specialty Start Date End Date Needs Pcp, Assignment PCP - General 04/24/14 [place] [address] documented as of this encounter
--- OUTSIDE RECORDS SUMMARY | 2022-08-03 21:30 | XMS_ITS | Encounter Summary ---
:1975 Author Organization [facility] Address [address] [place] [address] Care Team Providers Name Role Phone Needs Pcp, Assignment Primary Care Provider Reason for Visit Reason Comments Other Pre Phone encounter Encounter Details Date Type Department Care Team Description 01/23/2020 Telephone [facility] Cristina Gallegos Other [facility] [facility] [place], [place] [address] Social History Tobacco Use Types [...] documented as of this encounter Nursing Notes Cristina Gallegos CMA - 01/23/2020 9:25 AM CDT Images from the original note were not included. ORTHOTIC PRACTITIONER for phone follow up Cristina Gallegos CMA - 01/23/2020 9:25 AM CDT ----- Message from Barbara Lindsay APRN, CNP sent at 01/23/2020 8:51 AM CDT ----- Regarding: ORTHOTIC PRACTITIONER Is anyone available to post a ORTHOTIC PRACTITIONER on my 9:40 patient today since she is requesting [place] refill? If not, just let me know. I can log in and look at it but not sure how to copy and paste. Thanks documented in this encounter Plan of Treatment Not on filedocumented as of this encounter Visit Diagnoses Not on filedocumented in this encounter Care Teams Frit Coater Relationship Specialty Start Date End Date Needs Pcp, Assignment PCP - General 04/24/14 [place] [address] documented as of this encounter
--- OUTSIDE RECORDS SUMMARY | 2022-08-03 21:30 | XMS_ITS | Encounter Summary ---
:1975 Author Organization [facility] Address [address] [place] [address] Care Team Providers Name Role Phone Needs Pcp, Assignment Primary Care Provider Reason for Visit Reason Comments Follow-up Encounter Details Date Type Department Care Team Description 02/21/2020 Telemedicine Mayo Avila Occipita l neuralgia, unspecified laterality (Primary Dx); Lara Olivo, PhD, Anxiety about health; [address] [facility] Spondylosis of cervical region without m yelopathy or radiculopathy; [place], [place] [id number] [place] [address] Other specified depressive episodes [id number] (Wo rk) Social History Tobacco Use Types [...] Progress Notes Mayo Honeycutt, PhD, LP - 02/21/2020 1:00 PM CDT REPORT TYPE: Clinic Progress Note for Mental Health (Secure) PROVIDER: Mayo Honeycutt, PhD, LP FACILITY[facility]DEPT:[facility] [address] [place] [address] Date of Service: 02/22/20 NAME: Vivek Echeverria : 1975 VISIT LENGTH: START TIME: 1:00 pm END TIME: 1:45 pm Total Time Spent with Provider: 45 minutes I discussed with the patient/parent that [...] today's session alone. Patient reported that she took some time away from home and was currently at her mother's house. Patient noted that she has been struggling with increased pain and dealing with complications from various medications she is prescribed. Patient noted that she feels more irritable, and this has, in her interactions with her 2 children. Patient noted that she struggles with activity pacing, and setting time for herself. The psychologist and patient discussed the role of activity pacing, and the importance of self compassion during the COVID pandemic. Patient was encouraged to practice self-care, and praised for taking time for herself. Psychologist and patient also discussed cognitive distortions and how they impact way receive other people's intentions. Relevant examples were provided. CARMELLA 7 CARMELLA-7 02/21/2020 02/14/2020 Feeling nervous 1 1 Can't stop worrying 1 1 Worrying too much 1 1 Trouble relaxing 1 1 Restlessness 0 2 Easily annoyed 2 2 Feeling afraid 0 2 How difficult? Somewhat difficult Somewhat difficult Total score 6 10 Date Performed 02/21/2020 02/14/2020 Time Performed 11:55 AM 12:47 PM PHQ-9: PHQ-9 02/21/2020 02/14/2020 PHQ-9 Score Total 11 7 Q1: Loss of Int/Pleas ++ + Q2: Depressed mood ++ + Q3: Sleep problems - + Q4: Tired/Low Energy ++ + Q5: Appetite change + + Q6: Feelings of failure ++ + Q7: Concentration Prob ++ + Q8: Slow or Restless - - Q9: Thought Self Harm - - Date PHQ9 was completed 02/21/2020 02/14/2020 DIAGNOSIS: ICD-10-CM 1. Occipital neuralgia, unspecified laterality M54.81 2. Anxiety about health ([facility]) F41.8 3. Spondylosis of cervical region without myelopathy or radiculopathy ([facility]) M47.812 4. Other specified depressive episodes F32.89 GOALS [...] observed PLAN: Return visit in 1 week(s). Mayo Honeycutt, PhD, LP Pain Psychologist documented in this encounter Plan of Treatment Not on filedocumented as of this encounter Visit Diagnoses Diagnosis Occipital neuralgia, unspecified lateral ity - Primary Anxiety about health ([facility]) Spondylosis of cervical region without m yelopathy or radiculopathy ([facility]) Cervical spondylosis without myelopathy Other specified depressive episodes documented in this encounter Care Teams [employer] Field Agent Relationship Specialty Start Date End Date Needs Pcp, Assignment PCP - General 04/24/14 [place] [address] documented as of this encounter
--- OUTSIDE RECORDS SUMMARY | 2022-08-03 21:30 | XMS_ITS | Encounter Summary ---
:1975 Author Organization [facility] Address [address], [place] [address] Care Team Providers Name Role Phone Needs Pcp, Assignment Primary Care Provider Reason for Visit Reason Onset Date Comments Refill 02/13/2020 Encounter Details Date Type Department Care Team Description 02/13/2020 Refill [facility] Leyla Mendez, RN Refill [address] [place], [place] [address] Social History Tobacco Use Types [...] on filedocumented in this encounter Care Teams Hazardous Materials Handler Relationship Specialty Start Date End Date Needs Pcp, Assignment PCP - General 04/24/14 [place] [address] documented as of this encounter
--- OUTSIDE RECORDS SUMMARY | 2022-08-03 21:30 | XMS_ITS | Encounter Summary ---
:1975 Author Organization [facility] Address [address] [place] [address] Care Team Providers Name Role Phone Needs Pcp, Assignment Primary Care Provider Reason for Referral Consult/Transfer Care (Routine) - Closed Specialty Diagnoses / Procedures Referred By Contact Refer red To Contact Diagnoses 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) Occipital neuralgia of left side Occipital headache Dakota Aparicio MD [address] [place] [address] [phone] Referral ID Status Reason Start Date Expiration Date Visits Requ ested Visits Authorized [id number] Closed 02/12/2020 08/10/2020 1 1 Scheduling Instructions This order is your clinician's recommend ation for a service and is not an insurance referral which authorizes payment. The r ecommended service and/or location may not be covered by your insurance plan. Please c all the number on your insurance card to find out your specific benefits and coverage for the recommended services and/or location. If you need help scheduling the recommen ded services, please ask your clinician's staff to assist you. Reason for Visit Reason Comments Follow-up Encounter Details Date Type Department Care Team Description 02/12/2020 Telemedicine [facility] Dakota Aparicio MD [address] [place] [id number] Spondylosis of cervical region without m yelopathy or radiculopathy (Primary Dx); [address], Tritelly Chang Rn Occipital neuralgia of left side; [facility] [place] [phone] Social History Tobacco Use Types Packs/Day Years [...] as of this encounter Patient Instructions Patient InstructionsDakota Aparicio MD - 02/12/2020 1:00 PM CDT 1. Low dose naltrexone 4.5mg daily (you have to be off short acting opioids for 3 days prior to starting) 2. cymbalta 30mg daily X 7 days, then 60mg thereafter. ??? The risks and benefits of the Duloxetine (Cymbalta) was discussed at today???s visit. Overall, this is a well-tolerated and safe medication. The most common side effects include Nausea, constipation, sweating, diarrhea, headaches, and fatigue. You should monitor your blood pressure as this medication can cause or worsen high blood pressure. Rare, but serious side effects include liver failure, serious allergic reactions, life-threatening rashes, worsening glaucoma, and serotonin syndrome. The FDA also released a black box warning regarding increased risk of suicidal thoughts and behavior in children, adolescents, and young adults. Monitor closely for worsening and emergence of suicidal thoughts. Seek immediate medical attention if any of these rare but very serious side effects occur. ??? This medication is not recommended in patients with liver failure. ??? This dose may need to be adjusted if you have any kidney problems. ??? It may take several weeks before pain relief is noticed. Withdrawal effects can occur with stopping this medication abruptly. documented in this encounter Progress Notes Lila Garcia RN - 02/12/2020 1:00 PM CDT Images from the original note were not included. 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 year-old female who I am calling for video follow- up. She continues tohave ongoing left sided occipital pain. She never ended up getting the procedure done in [place]. No arm pain. She had been on medications in the past, but stopped them because she didn't like the side effects. When she takes the Justice, she gets relief for the remainder of the day; the pain goes from a 10/10 to a 4/10. Medications: Tizanidine Justice Topamax 25mg - started 2 weeks ago. Taking 75mg QHS. Doesn't think it is helping. Advil and tylenol Previous Medications: Gabapentin (didn't like the cognitive side effects), Cymbalta, mobic, Tylenol, aspirin, Celebrex, Voltaren, Aleve, ibuprofen, Robaxin, Flexeril, tizanidine, tramadol (didn't like how it made her feels)Lyrica, elavil. ? Procedures: Cervical facet joint injection at C2/3 01/12/17. Had relief during the local anesthetic phase (8->2/10), but no relief during the steroid phase. Trigger point injections - no help. Cervical RFA C2/3 07/21/17 - not sure if this is helping (helped with headaches) Current Medications: Outpatient Medications Prior to Visit Medication Sig Note Dispense Refill ??? HYDROcodone-acetaminophen (NORCO) 5-325 MG tablet Take 1 Tablet by mouth two times daily as needed for Pain. 14 Tablet 0 ??? ondansetron (ZOFRAN-ODT) 4 MG disintegrating tablet Take 1-2 Tabs by mouth every 8 hours as needed for Nausea or Other (Headache). 60 Tab 3 ??? SUMAtriptan (IMITREX) 100 MG tablet TAKE 1 TABLET BY MOUTH AT ONSET OF MIGRAINE. REPEAT NEEDED IN 1-2 HOURS. MAX 2 A DAY. MAX 9 DAYS PER MONTH (Patient not taking: Reported on 12/14/2018) 12 Tablet 0 ??? tiZANidine (ZANAFLEX) 2 MG tablet Take 1 Tablet by mouth every 8 hours as needed. 120 Tablet 1 ??? topiramate (TOPAMAX) 25 MG tablet Take 1 Tablet by mouth daily at bedtime. Take 3 Tablets by Mouth Daily at Bedtime 90 Tablet 3 ??? VIENVA 0.1-20 MG-MCG tablet 06/29/2018: Received from: External Pharmacy Facility-Administered Medications Prior to Visit Medication Dose Route Frequency Provider Last Rate Last Dose ??? fentaNYL (SUBLIMAZE) injection 25-100 mcg 25-100 mcg Intravenous PRN Dakota Aparicio MD 50 mcg at 04/28/18 1001 ??? midazolam (VERSED) injection 1-2 mg 1-2 mg Intravenous PRN Dakota Aparicio MD 2 mg at 04/28/18 0947 Objective There were no vitals taken for this visit. Estimated body mass index is 25.38 kg/m?? as calculated from the following: Height as of 04/28/18: 1.803 m (5' 11). Weight as of 10/02/19: 82.6 kg (182 lb). Appearance: Grooming: appropriate Level of Distress: NAD Assistive Devices: none Physical Exam: General: No apparent distress Psych: Oriented; appropriate affect and insight, non-pressured speech Assessment: Vivek is a 44 y.o. year-old female with: ICD-10-CM 1. Spondylosis of cervical region without myelopathy or radiculopathy ([facility]) M47.812 2. Occipital neuralgia of left side M54.81 3. Occipital headache R51 In the past, Vivek has actually had relief with various medication options. However, she doesn't like the sedative side effects and weight gain. She stopped all of her medications last September. Though she's rarely had 100% pain relief, she's had some relief. After discussing our options, we are going to maximize non-sedating medications and see if this provides some benefit. We are going to avoid opioids at the present time. She would like to get another opinion at the [facility]. This is a reasonable request and I would be happy to collaborate her treatments and results with any outside provider as needed. To date we have done a left TON RFA and occipital nerve blocks. She's also had a cervical epidural in the past. Shehad questionable response to the cervical RFA. What she may be a candidate for would be an implantable occipital nerve stimulator, versus nerve decompression or ablation. The chronic pain program may also be of benefit. Plan: 1. Low dose naltrexone 4.5mg daily (you have to be off short acting opioids for 3 days prior to starting) 2. cymbalta 30mg daily X 7 days, then 60mg thereafter. Dakota Aparicio MD 02/12/2020 TIME SPENT: 25 minutes including more than 50% time video [id number] time counseling her about her diagnosis and treatment options, and coordinating care with the primary team. DECISION-MAKING: The level of decision-making in this case is high/complex due to the complexity of medical problems, acute/chronic pain, opioid analgesia issues, and behavioral factors. documented in this encounter Plan of Treatment Scheduled Referrals Name Type Priority Associated Diagnoses Order S chedule PAIN CONSULT - ADULT Referral Routine Spondylosis of cervi odell Ordered: 02/12/2020 region without myelopathy or radiculopathy Occipital neuralgia of left side Occipital headache documented as of this encounter Visit Diagnoses Diagnosis Spondylosis of cervical region without m yelopathy or radiculopathy (HRC) - Primary Cervical spondylosis without myelopathy Occipital neuralgia of left side Occipital headache Headache documented in this encounter Care Teams Welt Insole Channeler Relationship Specialty Start Date End Date Needs Pcp, Assignment PCP - General 04/24/14 [place] [address] documented as of this encounter
--- OUTSIDE RECORDS SUMMARY | 2022-08-03 21:30 | XMS_ITS | Encounter Summary ---
:1975 Author Organization [facility] Address [address] [address] Care Team Providers Name Role Phone Needs Pcp, Assignment Primary Care Provider Reason for Visit Reason Comments Refill Encounter Details Date Type Department Care Team Description 12/20/2019 Telephone [facility] Lu Campos, RN Refill [address] [place], [place] [address] Social History Tobacco Use Types [...] myelopathy documented in this encounter Care Teams Civil Engineering Drafter Relationship Specialty Start Date End Date Needs Pcp, Assignment PCP - General 04/24/14 [place] [address] documented as of this encounter
--- OUTSIDE RECORDS SUMMARY | 2022-08-03 21:30 | XMS_ITS | Encounter Summary ---
:1975 Author [facility] Address [address] [place] [address] Care Team Providers Name Role Phone Needs Pcp, Assignment Primary Care Provider Encounter Details Date Type Department Care Team Description 10/19/2019 Refill [facility] Cristina Gallegos CMA [address] [place], [place] [address] Social History Tobacco Use Types [...] encounter Nursing Notes Cristina Gallegos CMA - 10/19/2019 11:09 AM CST Pt called to advise unable to sisal picker Hydrocodone RX sent yesterday to [facility]. Called pharmacy to confirm patient did not sisal picker prescription as they do not have enough of this item in stock. Patient would like prescription sent to the [facility] on file in [place]. 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
--- OUTSIDE RECORDS SUMMARY | 2022-08-03 21:30 | XMS_ITS | Encounter Summary ---
:1975 Author Organization [facility] Address [address] [place] [address] Care Team Providers Name Role Phone Needs Pcp, Assignment Primary Care Provider Reason for Visit Reason Comments PAIN, HEAD Occipital pain CONSULT Video Visit Consult/Transfer Care (Routine) - Closed Specialty Diagnoses / Procedures Referred By Contact Refer red To Contact Pain Management Diagnoses Occipital neuralgia, unspecified laterality Anxiety about health (HRC) 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) Other specified depressive episodes Mayo Honeycutt, [facility] [address] [facility] [address] 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 [address] [id number] (Wo rk) Social History Tobacco Use Types [...] - - Weight 79.4 kg (175 lb) 03/11/2020 10:08 AM CDT Height 181.6 cm (5' 11.5) 03/11/2020 10:08 AM CDT Body Mass Index 24.07 03/11/2020 10:08 AM CDT documented in this encounter Patient Instructions Patient InstructionsLucina Townsend APRN, CNP - 03/11/2020 1:00 PM CDT When you register with the [facility], you will receive information about the risks and benefits of medical marijuana, and also about any local support groups that may be helpful to you. If you do not get such information from them, please let us know. At your next provider visit, please provide your Care Team with information concerning the type of medication dispensed to you so that your health care provider can update your medical record. Your current problem list, printed below, is needed for the pharmacist. Patient Active Problem List Diagnosis ??? Trigger finger ??? Migraines ??? Herniated disc, cervical (ACG) ??? Bilateral occipital neuralgia Follow up with Lucina in 6 and 12 months documented in this encounter Progress Notes Andreia Iverson RN - 03/11/2020 1:00 PM CDT Images from the original note were not included. Lupe Aparicio RN - 03/11/2020 1:00 PM CDT Before we can start this telephone/video visit, the patient verbally consents to the followin. Patient name and date of : Confirmed 2. Demonstrates an understanding of the limitations with a telephone/virtual visit: Yes 3. Physical location of patient in case of emergency: Home 4. The telehealth visit will be billed to their insurance: Yes Lucina Townsend APRN, ENTERPRISE ARCHITECT - 03/11/2020 1:00 PM CDT PM&R/ Interventional Pain Management Outpatient New Patient Evaluation: Referring provider: Assignment Needs PCP Chief complaint: PAIN, HEAD (Occipital pain); CONSULT; and Video Visit HPI: Vivek Echeverria is a 44 y.o. female seen 03/11/2020 for evaluation for chronic pain. Symptoms: Pain is located: occipital region Pain severity: 8/10 Onset of pain: about 5 years ago, reports she started to get migraines for a couple years, using imitrex and then the pain progressed into the occipital area Prior history of pain in neck or low back includes:denies Trend: staying the same, getting worse since stopping medications Timing: intermittent, worsening throughout the day Quality: like a slow drill working on the left side, deep pain, not a headache Pain is aggravated by: looking downward Pain is improved by: ice, medications Associated symptoms: Numbness/tingling: denies Weakness: denies Bladder/bowel incontinence: denies Diagnosis of intractable trigeminal pain. Has been working with Dr Aparicio at [facility]. She has done several injections and other therapies that have not been helpful with her pain. She had been evaluated by a physician in [place] and had been recommended occupational nerve release. She was interested in this therapy, but insurance has been difficult. She feels like there there needs to an answer to her pain management. She had stopped all medications in September, and reports she felt better for a couple weeks, but then the pain returned. Prior treatments: cervical facet injections at C2-3-on 01/12/2017, no long acting relief, TPI's-no help, Cervical RFA C2-3 on 07/21/2017-helped with headaches, occipital nerve blocks, PT, traction, TENS,massage,, acupressure, heat, ice Prior medications: gabapentin-did like SE, cymbalta, mobic, Tylenol, aspirin, celebrex, voltaren, Aleve, ibuprofen, robaxin, flexeril, tizanidine, Tramadol- didn't like SE, Lyria, elavil Current pain management with has script for Topamax-but hasn't restarted, will use ibuprofen and Tyelnol together for some relief, currently on LDN-she is currently taking 4.5 mg currently only Yellow [place] issues: Medical disability: none 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 No significant interval change when compared to 05/22/2015. 2. Degenerative changes and scoliosis which appears similar to the previous study. 3. Indeterminate thyroid nodules on the left with the largest measuring approximately 1.9 x 0.8 x 1.7 cm in size which appears similar to the previous study. Consider follow-up thyroid ultrasound. 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 Never smoker Rare use alcohol use denies drug use MEDICATIONS: reviewed in EMR ALLERGIES: reviewed in EMR FAMILY HISTORY: reviewed in EMR Family history of spine disease: yes RA, OA, alcohol/chemical ROS: Musculoskeletal ROS: positive for - pain in occiput negative for - gait disturbance, joint pain, joint redness, joint stiffness, joint swelling, muscle pain or muscular weakness The patient reports headaches, dizziness, fatigue, skin rash to right shoulder, joint pain-knees, skin bruising, insomnia, depression Denies any problems with painful urination, blood in urine, frequent urination, urinary retention, diarrhea, constipation, nausea, vomiting, GI bleeding, stomach pain, skin sores/ulcers, difficulty breathing, chest pain, wheezing, heart problems, red/swollen joints. Denies anxiety Physical Examination: Vital Signs: Ht 1.816 m (5' 11.5) Wt 79.4 kg (175 lb) BMI 24.07 kg/m?? Estimated body mass index is 24.07 kg/m?? as calculated from the following: Height as of this encounter: 1.816 m (5' 11.5). Weight as of this encounter: 79.4 kg (175 lb). Physical Exam Constitutional: She is oriented to person, place, and time and well-developed, well-nourished, and in no distress. HENT: Head: Normocephalic. Eyes: Pupils are equal, round, and reactive to light. Neck: Normal range of motion. Pulmonary/Chest: Effort normal. Musculoskeletal: Normal range of motion. Neurological: She is alert and oriented to person, place, and time. Psychiatric: Mood, memory, affect and judgment normal. Assessment: ICD-10-CM 1. Bilateral occipital neuralgia M54.81 medical cannabis patient certified 2. Other complicated headache syndrome G44.59 medical cannabis patient certified 3. Medical marijuana use Z79.899 medical cannabis patient certified Plan: Medical cannabis certification Information given on risks and benefits given. Patient denies any risks of psychosis or breaks. Patient understands risks, benefits, and legalities as explained. Follow up in 6 and 12 months FLIGHT NURSE: Reviewed today, no concerns noted. CC: History and evaluation to be sent electronically to primary care physician, Assignment Needs PCP. This visit was completed as a virtual video visit using a synchronous, two-way, audio-video technology platform. Due to the restrictions of the COVID-19 pandemic, a virtual appointment is the preferredmethod of medical assessment whenever possible. All issues as documented above were discussed and addressed. Due to the nature of an audio-video modality, the only components of a physical exam that could be done are the elements supported by direct visual observation. If it was felt that the patient should be evaluated in clinic or in an emergency room setting, then this was discussed with the patient. Patient identification was verified at the start of the visit, including the patient's name, date ofbirth, and physical location in case of emergency. Patient was in her home. Provider was working from home remotely. Patient verbally consented to visit and demonstrated an understanding of the limitations of this virtual visit. I discussed with the patient that this visit is a telehealth visit that will be billed to their insurance. We reviewed potential benefits, risks, and confidentiality of telehealth visits. In the event of technical problems, a contingency plan was made. I explained that the appropriateness of telehealth visits is determined by the provider and that patient may need to be seen in clinic in the future. Lucina Townsend APRN, ENTERPRISE ARCHITECT Pain Management Vivek Echeverria is a 44 y.o. old female who is here requesting certification for medical cannabis use. The qualifying condition for which the patient is requesting certification is Intractable Pain- pain whose cause can't be removed & the full range of pain mgmt modalities appropriate for this patient has been used without adequate result or with intolerable side effects. I am not the home health clinician (but am the designated salon supervisor for pain clinic) responsible for thecare and treatment of the qualifying condition. I have reviewed the patient's medical history and tests that support this diagnosis. Exam: see above 1. The patient does have the qualifying condition that would make them eligible for the use of medical cannabis. This condition is Intractable Pain- pain whose cause can't be removed & the full range of pain mgmt modalities appropriate for this patient has been used without adequate result or with intolerable side effects. 2. 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 Yes ?? This patient will be certified on the [place] state Registry as having a qualifying condition. Informed the patient when they register with the state they will receive information about the risks and benefits of medical marijuana and information about any local support groups that may be helpful to them. If they do not get such information from the [facility], they should let me know. ?? The patient was given and signed the [place] warning. She agrees that the certifying clinician may give information about her care to the [facility]. ?? The patient gave their preferred email address for communication with the [facility]. (If they do not have a functioning email address, they were given the phone number of the [facility] Department of [employer] so that they may register using a paper process.) The patient will receive ongoing care for the qualifying condition from Lucina. She should return to clinic for a follow-up visit in 6 and 12 months. Oleg[place] Warning (Link below to print document, if needed) [email or web address]_f [email or web address] Link to [facility] Website (if needed) to register as a certifying clinician OR to certify a patient [email or web address] documented in this encounter Plan of Treatment Not on filedocumented as of this encounter Visit Diagnoses Diagnosis Bilateral occipital neuralgia - Primary Other complicated headache syndrome Medical marijuana use documented in this encounter Care Teams Fire Protection Engineer Relationship Specialty Start Date End Date Needs Pcp, Assignment PCP - General 04/24/14 [place] [address] documented as of this encounter
--- OUTSIDE RECORDS SUMMARY | 2022-08-03 21:30 | XMS_ITS | Encounter Summary ---
:1975 Author Organization [facility] Address [address], [place] [address] Care Team Providers Name Role Phone Needs Pcp, Assignment Primary Care Provider Reason for Visit Reason Onset Date Comments Refill 08/29/2019 Encounter Details Date Type Department Care Team Description 08/29/2019 Refill [facility] Cristina Gallegos, [facility] Refill [address] [place], [place] [address] Social History Tobacco Use Types [...] on filedocumented in this encounter Care Teams Greeting Card Maker Relationship Specialty Start Date End Date Needs Pcp, Assignment PCP - General 04/24/14 [place] [address] documented as of this encounter
--- OUTSIDE RECORDS SUMMARY | 2022-08-03 21:30 | XMS_ITS | Encounter Summary ---
:1975 Author Organization [facility] Address [address] [place] [address] Care Team Providers Name Role Phone Needs Pcp, Assignment Primary Care Provider Reason for Visit Reason Comments Med Request Encounter Details Date Type Department Care Team Description 10/19/2019 Telephone [facility] Cristina Gallegos, Med Request [address] [place], [place] [address] Social History Tobacco Use [...] encounter Nursing Notes Lu Campos RN - 10/19/2019 3:49 PM CST Patient paid out of pocket, no change in prescription required. 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
--- OUTSIDE RECORDS SUMMARY | 2022-08-03 21:30 | XMS_ITS | Encounter Summary ---
:1975 Author Organization [facility] Address [address], [place] [address] Care Team Providers Name Role Phone Needs Pcp, Assignment Primary Care Provider Reason for Visit Reason Comments Medication Questions Encounter Details Date Type Department Care Team Description 10/17/2019 Telephone [facility] uL Campos Medication Questions [address] [facility] Cecil Govea RN [place], [place] [address] Social History Tobacco Use Types [...] encounter Nursing Notes Dakota Aparicio MD - 10/18/2019 4:27 PM CST I spoke with Vivek over the phone - she did have 2 weeks of no pain (her typical occipital head pain), but then the pain started again several days ago. She was going to restart her preventative medications. In the interim, she was requesting Ladora to help with the breakthrough pain - risks and side effects were discussed. Did provide #20 tabs. Dakota Aparicio MD 10/18/2019, 4:30 PM CTOR GIFT Lu Campos RN - 10/17/2019 10:48 AM CST Images from the original note were not included. Patient last seen in -4-06 by . Patient phones requesting prescription for norco for complaints of head pain, but states it is not a migraine. Patient reports she had stopped all medications 2 1/2 weeks ago and was doing well, feeling normal, until 4 days ago. Patient does consult with Pain Psych 10-17-19 and surgery is planned in [place] 2019 for occipital nerve decompression. 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
--- OUTSIDE RECORDS SUMMARY | 2022-08-03 21:30 | XMS_ITS | Encounter Summary ---
:1975 Author Organization [facility] Address [address], [place] [address] Care Team Providers Name Role Phone Needs Pcp, Assignment Primary Care Provider Reason for Visit Reason Comments QUESTIONS, GENERAL Encounter Details Date Type Department Care Team Description 02/14/2020 Telephone [facility] Cristina Gallegos, QUESTIONS, GENERAL [address] [place], [place] [address] Social History Tobacco Use Types [...] encounter Nursing Notes Cristina Gallegos CMA - 02/14/2020 11:24 AM CDT Pt left voicemail advising Naltrexone was sent to the wrong pharmacy, and that she was under the impression she would be getting a refill of [place]. Advised pt Dr. Aparicio's plan did not include refill of [place], and the Naltrexone was corrected and [facility] fax. Pt had no further questions. documented in this encounter Plan of Treatment Not on filedocumented as of this encounter Visit Diagnoses Not on filedocumented in this encounter Care Teams Post Partum Nurse Relationship Specialty Start Date End Date Needs Pcp, Assignment PCP - General 04/24/14 [place], [place] [address] documented as of this encounter
--- OUTSIDE RECORDS SUMMARY | 2022-08-03 21:30 | XMS_ITS | Encounter Summary ---
:1975 Author Organization [facility] Address [address] [place] [address] Care Team Providers Name Role Phone Needs Pcp, Assignment Primary Care Provider Reason for Referral Consult/Transfer Care (Routine) - Closed Specialty Diagnoses / Procedures Referred By Contact Refer red To Contact Diagnoses Occipital neuralgia, unspecified laterality Dakota Aparicio MD [address] [place] [phone] Referral ID Status Reason Start Date Expiration Date Visits Requ ested Visits Authorized [id number] Closed 05/14/2020 11/10/2020 1 1 Scheduling Instructions This order is [...] assist you. Reason for Visit Reason Comments REFERRAL REQUEST Encounter Details Date Type Department Care Team Description 05/14/2020 Telephone [facility] Dakota Aparicio MD REFERRAL REQUEST [address] [id number] [address] [place], [place] [id number] (Wo rk) Social History Tobacco Use Types [...] documented as of this encounter Nursing Notes Marion Valerio - 05/14/2020 2:32 PM CDT Vivek is looking to be seen and the [facility] for her ONB relief surgery. Sounds like there is a doctor there who can see her and be closer to home. Vivek says she needs areferral sent [fax # [phone]] saying specifically the reason for the referral along with a clinical diagnosis, plus health records. If you can get a new referral in, I can send everything over forher. documented in this encounter Plan of Treatment Scheduled Referrals Name Type Priority Associated Diagnoses Order S chedule PAIN CONSULT - ADULT Referral Routine Occipital neuralgia, Ordered: 05/14/2020 unspecified laterality documented as of this encounter Visit Diagnoses Diagnosis Occipital neuralgia, unspecified lateral ity - Primary documented in this encounter Care Teams Grocery Checker Relationship Specialty Start Date End Date Needs Pcp, Assignment PCP - General 04/24/14 [place] [address] documented as of this encounter
--- OUTSIDE RECORDS SUMMARY | 2022-08-03 21:30 | XMS_ITS | Encounter Summary ---
:1975 Author Organization [facility] Address [address] [place] [address] Care Team Providers Name Role Phone Needs Pcp, Assignment Primary Care Provider Reason for Visit Reason Comments Follow-up Encounter Details Date Type Department Care Team Description 03/06/2020 Telemedicine Mayo [facility]ila Occipita l neuralgia, unspecified laterality (Primary Dx); Lara Olivo, PhD, Anxiety about health; [address] [facility] Spondylosis of cervical region without m yelopathy or radiculopathy; [place], [place] [id number] [place] [address] Other specified depressive episodes [id number] (Wo rk) Social History Tobacco Use Types [...] Progress Notes Mayo Honeycutt, PhD, LP - 03/06/2020 1:00 PM CDT REPORT TYPE: Clinic Progress Note for Mental Health (Secure) PROVIDER: Mayo Honeycutt, PhD, LP FACILITY/DEPT:[facility] [address] [place] [address] Date of Service: 03/06/20 NAME: Vivek Echeverria : 1975 VISIT LENGTH: START TIME: 12:45 pm END TIME: 1:30 pm Total Time Spent with Provider: 45-minutes I discussed with the patient/parent that this [...] CONTENT DISCUSSED: Patient attended today's session via [facility]. Patient reported that she has been struggling with feeling effective in her day-to-day interactions with others. Patient stated that she has gotten wrapped up in various conspiracy theories online about the COVID pandemic, and is unsure what to make sense of or believe. Psychologist and patient spent time discussing the importance of agency and doing what matters to her. Psychologist provided patient with a handout called ???doing what matters during times of stress and ???and encouraged the patient to check out the various exercises. Patient also stated [facility] Psychologist and patient discussed the various treatment interventions the patient has tried. Psychologist encouraged patient to be helpful for the appointment, but to process the interventions as another tool in her tool kit. Psychologist and patient spent some time discussing the role of strategies in treating chronic pain. It is better to have a full quiver of tools at your disposal, then to rely on 1 or 2. Patient was receptive to this information, and vanc the psychologist for the referral. Patient will attempt to use grounding exercises to unhook her thoughts, feelings, and physiological sensations from each other. Patient will also use space and Cassi in her interactions with her children to avoid getting stuck in a negative feedback loop. Patient expressed understanding. CARMELLA 7 CARMELLA-7 03/06/2020 02/28/2020 02/21/2020 Feeling nervous 0 1 1 Can't stop worrying 1 1 1 Worrying too much 1 2 1 Trouble relaxing 1 2 1 Restlessness 0 1 0 Easily annoyed 1 2 2 Feeling afraid 1 0 0 How difficult? Somewhat difficult Somewhat difficult Somewhat difficult Total score 5 9 6 Date Performed 03/06/2020 02/28/2020 02/21/2020 Time Performed 12:22 PM 12:55 PM 11:55 AM PHQ-9: PHQ-9 03/06/2020 02/28/2020 02/21/2020 PHQ-9 Score Total 9 13 11 Q1: Loss of Int/Pleas + ++ ++ Q2: Depressed mood ++ ++ ++ Q3: Sleep problems + - - Q4: Tired/Low Energy + ++ ++ Q5: Appetite change + + + Q6: Feelings of failure ++ ++ ++ Q7: Concentration Prob + +++ ++ Q8: Slow or Restless - + - Q9: Thought Self Harm - - - Date PHQ9 was completed 03/06/2020 02/28/2020 02/21/2020 DIAGNOSIS: ICD-10-CM 1. Occipital neuralgia, unspecified laterality M54.81 2. Anxiety about health (HRC) F41.8 3. 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) M47.812 4. Other specified depressive episodes F32.89 GOALS & OBJECTIVES: MEASURABLE GOALS TO BE ACCOMPLISHED: (Scale used to measure progress: 1=little, no progress, 5=excellent progress/goal met) Depression ?? GOAL OBJECTIVE INTERVENTION METHODS PROGRESS TOWARDS GOAL Target Date Depression: Develop skills to manage mood and/or eliminate depressive symptoms. Objective: The patient will be able to identify, challenge, and replace negative, hopeless talk with positive, realistic and empowering talk. identify how stress impacts mental health symptoms, and develop 3-5 effective stress management techniques. The patient will learn and practice 2-4 cognitive behavioral strategies for regulating mood. ACT, CBT and Pain management skills Progress to date: N - New Objective 02/24/2021 ?? Anxiety around pain ?? GOAL OBJECTIVE INTERVENTION METHODS PROGRESS TOWARDS GOAL Target Date Anxiety: Reduce fear and anxiety regarding pain Objective: The patient will utilize 2 relaxation techniques to relax physically for 5 consecutive weeks. ACT, CBT-CP and Utilize biofeedback to teach relaxation and differentiate between relaxed and tense states Progress to date: N - New Objective 02/24/2021 ?? Body Pain Management GOAL OBJECTIVE INTERVENTION METHODS PROGRESS TOWARDS GOAL Target Date Body pain management Objective: Use one pain management technique per day Self- Report and Progress Monitoring Progress to date: N - New Objective 02/24/2021 Body pain management Objective: Increase participation in activities by 50% or more Self-Report and Progress Monitoring Progress to date: N - New Objective 05/25/2020 ? Type of Service Frequency Resolution Date Individual Therapy 1 Time per week 3 Month: 05/25/2020 Pain Strategies include: relaxation techniques, distraction techniques, [...] observed PLAN: Return visit in 1 week(s). 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
--- OUTSIDE RECORDS SUMMARY | 2022-08-03 21:30 | XMS_ITS | Encounter Summary ---
:1975 Author Organization [facility] Address [address] [address] Care Team Providers Name Role Phone Needs Pcp, Assignment Primary Care Provider Reason for Visit Reason Onset Date Comments No Show 03/28/2020 Encounter Details Date Type Department Care Team Description 03/28/2020 Telemedicine [facility] Viky Fuentes Encou nters for [facility]IL[facility] administrative purposes [address] [place] [address] (Primary Dx) [place] [address] [phone] Social History Tobacco Use Types Packs/Day Years [...] encounter Progress Notes Viky Fuentes PA-C - 03/28/2020 11:30 AM CDT Left VM for video visit no show documented in this encounter Plan of Treatment Not on filedocumented as of this encounter Visit Diagnoses Diagnosis Encounters for administrative purposes - Primary Encounters for unspecified administrativ e purpose documented in this encounter Care Teams Grocery Checker Relationship Specialty Start Date End Date Needs Pcp, Assignment PCP - General 04/24/14 [place] [address] documented as of this encounter
--- OUTSIDE RECORDS SUMMARY | 2022-08-03 21:30 | XMS_ITS | Encounter Summary ---
:1975 Author Organization [facility] Address [address] [place] [address] Care Team Providers Name Role Phone Needs Pcp, Assignment Primary Care Provider Reason for Visit Reason Comments Pain Stress ANXIETY DEPRESSION Consult/Transfer Care (Routine) - Closed Specialty Diagnoses / Procedures Referred By Contact Refer red To Contact Diagnoses Occipital neuralgia of left side Barbara Lindsay APRN, DINKER [address] [facility] [address] [place], [place] [address] Referral ID Status Reason Start Date Expiration Date Visits Requ ested Visits Authorized [id number] Closed 01/23/2020 04/23/2021 1 1 Encounter Details Date Type Department Care Team Description 01/31/2020 Telemedicine [facility] Occipita l neuralgia, unspecified laterality (Primary Dx); Counseling D, PhD, LP Spondylosis of cervical region without m yelopathy or radiculopathy; [address] [facility] Anxiety about health; [place] [address] [place], [place] Other specified depressive episodes [id number] (Wo rk) Social History Tobacco Use Types [...] Progress Notes Mayo Honeycutt, PhD, LP - 01/31/2020 11:00 AM CDT REPORT TYPE: Clinic Progress Note for Mental Health ([facility]) PROVIDER: Mayo Honeycutt, PhD, FACILITY/DEPT:[address] [address] Date of Service: 02/03/20 NAME: Vivek Echeverria : 1975 VISIT LENGTH: START TIME: 11:00 am END TIME: 12:00 pm Total Time Spent with Provider: 60 [...] of patient: home IDENTIFICATION: PRESENT IN SESSION: Vivek buffy. This provider was present for the entire session. CHIEF COMPLAINT: REASON FOR VISIT: follow up visit APPOINTMENT CONTENT: Vivek presents today for follow-up therapy session to address depression, anxiety and pain management strategies for occipital neuralgia. Current Pain Level: 4/10 (0=no pain, 10=worst pain imaginable) CONTENT DISCUSSED: Patient attended today's session via [facility] to establish care with pain psychologist. Due to thenature of the COVID epidemic, patient was not able to complete the intake paperwork, and as such, a diagnostic evaluation was not able to take place during the session. The diagnostic evaluation will be completed once paperwork is received and before the 3rd appointment with the patient. Patient was referred to Pain Psychology by Barbara Lindsay NP to see if she would benefit from pain psychological services to help ameliorate and improve her management of occipital neuralgia. Patient was previously on 13 pills a day to manage her pain, but has recently weaned herself off of all of them. Patient noted she had about a 2 month vacation from her pain, but it has since returned with a vengeance. Patient notes that she has 5-6 neuralgia attacks a day. Currently, there is no pattern or reason for the attacks, and they appear to be at random. Patient notes that there is significant pressure around the occipital region of her eyes. She has complained of nerve pain, sings, and has engaged in various remedies without success. Patient notes that she has tried medication, gluten free diet, acupuncture, chiropractic, online courses, working out, caffeine, sleep, and medicinal. None of these have given her long-term relief. Patient is working per Ney Aparicio MD's request of her to be active, and has begun working out 3-4 times a week doing kick boxing. She notes that kick boxing, exercise, and other strategies just seem to make pain worse. 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 She has been to various providers, and is just looking for strategies to get back into her life. Patient is interested in learning pain management strategies and doing acceptance and commitment therapy. CARMELLA 7 No flowsheet data found. PHQ-9: No flowsheet data found. DIAGNOSIS: ICD-10-CM 1. Occipital neuralgia, unspecified laterality M54.81 2. 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 Anxiety about health (HRC) F41.8 4. Other specified depressive episodes F32.89 [...] Return visit in 1 week(s). Extended time ([id number]) was required for today???s session due to the patient having a highly complicated psychiatric/medical presentation and the application of specific procedure/technique such as EMDR, hypnosis, and/or pain management strategies. 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
--- OUTSIDE RECORDS SUMMARY | 2022-08-03 21:30 | XMS_ITS | Encounter Summary ---
:1975 Author Organization [facility] Address [address] [place] [address] Care Team Providers Name Role Phone Needs Pcp, Assignment Primary Care Provider Reason for Visit Reason Comments Medication Request Encounter Details Date Type Department Care Team Description 01/21/2020 Telephone [facility] Dakota Aparicio MD Medication Request [address] [address] [place], [place] [phone] (Wo rk) Social History Tobacco Use Types [...] this encounter Nursing Notes Marion Valerio - 01/21/2020 2:08 PM CDT Vivek KEENAN at AA line requesting [place] refill. Forwarding for nursing staff & Dr. Aparicio. Thanks! documented in this encounter Plan of Treatment Not on filedocumented as of this encounter Visit Diagnoses Not on filedocumented in this encounter Care Teams Product Evangelist Relationship Specialty Start Date End Date Needs Pcp, Assignment PCP - General 04/24/14 [place] [address] documented as of this encounter
--- OUTSIDE RECORDS SUMMARY | 2022-08-03 21:30 | XMS_ITS | Encounter Summary ---
:1975 Author Organization [facility] Address [address] [place] [address] Care Team Providers Name Role Phone Needs Pcp, Assignment Primary Care Provider Reason for Visit Reason Comments Intake Pain Clinic Intake Encounter Details Date Type Department Care Team Description 03/06/2020 Notes/Orders [facility] [address] Pain Andreia Iverson, RN Clinic [address] [facility] 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 Recent visits related to pain: 03/05/20 Medical history and workup: ??? Medications the patient has tried: Duloxetine, [place] 5-325mg BID PRN, LDN 4.5mg, tizanidine ??? Rehabilitation (PT/OT/Medx)? Yes; date PT x1 2015. No OT on file ??? Behavioral health? Yes; date Anxiety ??? Other treatment modalities tried: Cervical FJIs; date 2017, TPIs - no date, Cervical RFA 2016 ??? Imaging (MRI within the past 2 years for cervical thoracic, 5 years for lumbar): MRI brain and cervical spine 02/02/18 ??? Any red flags present? None Other information: ??? Controlled substance agreement on file? No ??? Patient???s insurance: None noted in chart Recommendations: Schedule intake visit in Pain Management Clinic; initial complexity assessment = Medium documented in this encounter Plan of Treatment Not on filedocumented as of this encounter Visit Diagnoses Not on filedocumented in this encounter Care Teams Foreign Clerk Relationship Specialty Start Date End Date Needs Pcp, Assignment PCP - General 04/24/14 [place] [address] documented as of this encounter
--- OUTSIDE RECORDS SUMMARY | 2022-08-03 21:30 | XMS_ITS | Encounter Summary ---
:1975 Author Organization [email or web address] Address [address] [place] [address] Care Team Providers Name Role Phone Needs Pcp, Assignment Primary Care Provider Reason for Visit Reason Comments Follow-up pain Encounter Details Date Type Department Care Team Description 10/02/2019 Office Visit [facility] Dakota Aparicio MD [address] [place] [address] Spondylosis of cervical region without m yelopathy or radiculopathy (Primary Dx); [address] Occipital neuralgia of left side; [place], [place] Occipital he adache [id number] Social History Tobacco Use Types Packs/Day Years [...] Comments Blood Pressure 140/87 10/02/2019 10:04 AM CHEMISTRY TEACHER Pulse 84 10/02/2019 10:04 AM CHEMISTRY TEACHER Temperature - - Respiratory Rate 16 10/02/2019 10:04 AM CHEMISTRY TEACHER Oxygen Saturation 99% 10/02/2019 10:04 AM CHEMISTRY TEACHER Inhaled Oxygen Concentration - - Weight 82.6 kg (182 lb) 10/02/2019 10:04 AM CHEMISTRY TEACHER Height - - Body Mass Index 25.38 04/28/2018 9:04 AM CDT documented in this encounter Patient Instructions Patient InstructionsDakota Aparicio MD - 10/02/2019 9:50 AM CST 1. Pain psychology referral 2. Continue with exercises 3. No interventions right now ISTRY TEACHER documented in this encounter Progress Notes Cristina Gallegos CMA - 10/02/2019 9:50 AM CST Images from the original note were not included. BLEACH BOILER PULLER for follow up ISTRY TEACHER Dakota Aparicio MD - 10/02/2019 9:50 AM CST Interventional Pain Follow-up Appointment Subjective: Vivek Echeverria is a 44 y.o. year-old female who is here today for follow-up. She presents with ongoing left sided occipital pain. She stopped all of her medications 4 days ago - the pain didn't change substantially. She has been working with a plastic surgeon in [place] who was going to perform an occipital nerve release / decompression. However, she has had some issues getting this covered by insurance. Medications: Has largely stopped her pain medications. Took 4mg of tizanidine last night - didn't help. Has been trying medical marijauna. Stopped: Flexeril, cymbalta, topamax, naltrexone. ROS: No fevers, chills, or arm pain Current Medications: Outpatient Medications Prior to Visit Medication Sig Note Dispense Refill ??? DULoxetine (CYMBALTA) 30 MG capsule Take 1 Capsule by mouth daily. After 1 week, take 2 tabs (60mg) daily (Patient not taking: Reported on 10/02/2019) 60 Capsule 2 ??? HYDROcodone-acetaminophen (NORCO) 5-325 MG tablet Take 1/2 tab every other day as needed. 20 Tab0 ??? naltrexone (REVIA) 50 MG tablet Compounded low dose naltrexone. 4.5mg QHS X 7 days, then 9mg QHSthereafter. (Patient not taking: Reported on 10/02/2019) 60 Tablet 0 ??? NALTREXONE HCL OR TAKE 1 CAPSULE BY MOUTH AT BEDTIME. 08/29/2019: NALTREXONE 9MG CAP 5 ??? ondansetron (ZOFRAN-ODT) 4 MG disintegrating tablet [...] at Bedtime (Patient not taking: Reported on 10/02/2019) 90 Tablet 3 ??? VIENVA 0.1-20 MG-MCG tablet 06/29/2018: Received from: External Pharmacy ??? cyclobenzaprine (FLEXERIL) 10 MG tablet Take 1 Tab by mouth at bedtime as needed for Muscle Spasms. (Patient not taking: Reported on 12/14/2018) 30 Tab 0 Facility-Administered Medications Prior to Visit Medication Dose Route Frequency Provider Last Rate Last Dose ??? fentaNYL (SUBLIMAZE) injection 25-100 mcg 25-100 mcg Intravenous PRN Dakota Aparicio MD 50 mcg at 04/28/18 1001 ??? midazolam (VERSED) injection 1-2 mg 1-2 mg Intravenous PRN Dakota Aparicio MD 2 mg at 04/28/18 0947 Objective BP (!) 140/87 (BP Location: Right Arm, BP Cuff Size: Regular) Pulse 84 Resp 16 Wt 82.6 kg (182lb) SpO2 99% BMI 25.38 kg/m?? Estimated body mass index is 25.38 kg/m?? as calculated from the following: Height as of 04/28/18: 1.803 m (5' 11). Weight as of this encounter: 82.6 kg (182 lb). Appearance: Grooming: appropriate Level of Distress: NAD Assistive Devices: none Physical Exam: General: No apparent distress HEENT: Pupils equal and round, nasopharynx clear Resp: Non-labored breathing Psych: Oriented; appropriate affect and insight, non-pressured speech Neuromuscular Exam: TTP in the left occipital region, no TTP in the neck. She reports tightness in her neck with axial extension, flexion, and rotation. Motor is 5/5 in upper extremities, sensation is intact bilaterally. Assessment: Vivek is a 44 y.o. year-old female with: ICD-10-CM 1. Spondylosis of cervical region without myelopathy or radiculopathy M47.812 2. Occipital neuralgia of left side M54.81 3. Occipital headache R51 She has tried multiple medications and and interventions without meaningful sustained relief. She isgoing to pursue the occipital nerve decompression in [place]. I would also recommend that she work with our pain psychologist for pain coping skills, as a suspect this has had a lot of impact on her life. Stressors, depression, anxiety can also be driving force for headaches. We discussed repeating a cervical RFA, we are going to hold off on this option at this time. Plan: 1. Pain psychology referral 2. Continue with exercises 3. No interventions right now Dakota Aparicio MD 10/02/2019, ISTRY TEACHER documented in this encounter Plan of Treatment Not on filedocumented as of this encounter Visit Diagnoses Diagnosis Spondylosis of cervical region without m yelopathy or radiculopathy - Primary Cervical spondylosis without myelopathy Occipital neuralgia of left side Occipital headache Headache documented in this encounter Care Teams Paper Rewinder Operator Relationship Specialty Start Date End Date Needs Pcp, Assignment PCP - General 04/24/14 [place] [address] documented as of this encounter
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
--- OUTSIDE RECORDS SUMMARY | 2022-08-03 21:30 | XMS_ITS | Encounter Summary ---
:1975 Author Organization [employer] Address [address] [address] Care Team Providers Name Role Phone Needs Pcp, Assignment Primary Care Provider Reason for Visit Reason Comments QUESTIONS, GENERAL Encounter Details Date Type Department Care Team Description 11/26/2019 Telephone [facility] Lu Campos, QUESTIONS, GENERAL [address] [facility] [address] [place], [place] [address] Social History Tobacco Use Types [...] encounter Nursing Notes Lu Campos RN - 11/27/2019 1:16 PM CST Left message for patient to schedule follow up appointment in clinic. MEDICINE PHYSICIAN Lu Campos RN - 11/26/2019 11:29 AM CST Vivek phones asking for suggestions, states she does not know what to do regarding complaints of occipital nerve pain. She has changed her diet to gluten free, has been exercising, and no longer drinks soda. Rates pain 8/10 today, having to leave work due to pain and nausea/vomiting. Patient states she still has some norco that was prescribed October 19, 2019 and also has zofran for nausea. Patientreports plans for surgery in [place] is on hold due to requirements for pre-surgical evaluation with neurologist and pain psychologist. Due to deductible and cost of traveling out of state, unable to proceed at this time. MEDICINE PHYSICIAN documented in this encounter Plan of Treatment Not on filedocumented as of this encounter Visit Diagnoses Not on filedocumented in this encounter Care Teams Pipe Cleaning Machine Operator Relationship Specialty Start Date End Date Needs Pcp, Assignment PCP - General 04/24/14 [place] [address] documented as of this encounter
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
--- OUTSIDE RECORDS SUMMARY | 2022-08-03 21:30 | XMS_ITS | Encounter Summary ---
:1975 Author [facility] Address [address] [place] [address] Care Team Providers Name Role Phone Needs Pcp, Assignment Primary Care Provider Reason for Visit Reason Comments Pain Medication Request Encounter Details Date Type Department Care Team Description 10/18/2019 Nurse Triage Careline Unknown, Pain; Medication [address] Physician Request [place], [place] [address] [phone] [place], [place] [address] Social History Tobacco Use Types Packs/Day Years [...] documented as of this encounter Nursing Notes Ronna De La O RN - 10/18/2019 6:28 PM CST Verified patient identity using three identifiers: yes Situation/Background (brief explanation of current symptoms/situation): Pt calling stating her prescription ( [place]) was sent to a pharmacy she didn't request. She states she is about 40 minutes from [place]. Called [facility] to check on the status of the prescription. Pharmacy patient financial representative saidthey are low on [place] and can only refill partial of the prescription tonight He states pt can pickling tank operator partial of the [place] tonight and get the rest tomorrow. Prescribing provider doesn't have irrigation service technician/after hours provider to consult with or to request a new script. Advised pt to go pickling tank operator the prescription from [facility] as that is the only option if she needs the medication tonight or to follow up with the clinic tomorrow morning. Pt frustrated and not happy with the outcome. She ended the call. Reason for Disposition ??? [1] Follow-up call to recent contact AND [2] information only call, no triage required Protocols used: INFORMATION ONLY [id number] Ronna De La O RN 10/18/2019, 6:55 PM CARVER Arline Howell - 10/18/2019 6:25 PM CST Verified patient identity using three identifiers: Yes Caller's relationship to patient: Self At which care system or clinic is the patient normally seen? [facility] Medication Questions/New Med Request/ Side Effects What medication are you calling about (name and/or type)? norco What is your question/concern? Patient states hr medication is not where she usually picked it up. States she is in severe pain Are you experiencing any symptoms? Yes Plan: Caller transferred directly to CareLine nurse. CARVER documented in this encounter Plan of Treatment Not on filedocumented as of this encounter Visit Diagnoses Not on filedocumented in this encounter Care Teams Airplane Patrol Pilot Relationship Specialty Start Date End Date Needs Pcp, Assignment PCP - General 04/24/14 [place] [address] documented as of this encounter
--- OUTSIDE RECORDS SUMMARY | 2022-08-03 21:30 | XMS_ITS | Encounter Summary ---
:1975 Author Organization [facility] Address [address], [place] [address] Care Team Providers Name Role Phone Needs Pcp, Assignment Primary Care Provider Reason for Visit Reason Onset Date Comments ERRONEOUS ENTRY 12/10/2019 Encounter Details Date Type Department Care Team Description 12/10/2019 Refill [facility] Marlen Guillen RN ERRONEOUS ENTRY [address] [place], [place] [address] Social History Tobacco Use Types [...] myelopathy documented in this encounter Care Teams Network Support Manager Relationship Specialty Start Date End Date Needs Pcp, Assignment PCP - General 04/24/14 [place] [address] documented as of this encounter
--- OUTSIDE RECORDS SUMMARY | 2022-08-03 21:30 | XMS_ITS | Encounter Summary ---
:1975 Author Organization [email or web address] Address [address] [place] [address] Care Team Providers Name Role Phone Needs Pcp, Assignment Primary Care Provider Reason for Visit Reason Comments Pain Encounter Details Date Type Department Care Team Description 04/15/2020 Telemedicine [facility] Viky Fuentes Bilat eral [facility] CENTER MINDA neuralgia (Primary [address] [facility] [address] [address]) [place], [place] [address] [place], [place] [phone] (Wo rk) Social History Tobacco Use Types [...] encounter Progress Notes Viky Fuentes PA-C - 04/15/2020 11:00 AM CDT Vivek continues care for Chief Complaint Patient presents with ??? Pain Chaotic week, has been doing daily breath and working with energy healer. This has been very helpful. Still on unemployment and waiting for forms from state to start back up at work. Feeling activated with her teenagers and impatient. Past Medical History: Past Medical History: Diagnosis [...] Aparicio MD 2 mg at 04/28/18 0947 Objective: Physical Exam: Estimated body mass index [...] occipital neuralgia (primary encounter diagnosis) Plan: Reviewed: thought and belief challenging especially as it relates to motherhood, setting boundaries, modelingand finding time for self, and resources for book: Motherwhelmed. Recommended doing one thing for her self in next 2 weeks. depletion and renewal, felt sense, re framing, NS regulation, journaling. Educated on: Emotional agility resources, RAIN, Heart focused breathing and Attitude shift, values, parenting resource podcast, depletion and renewal. Next visit will work on: Alarm system and Central Sensitization,Daily Plan and Hypersensitization, Amygdala Hijack, Stress management pathway, Increase resiliency, Meditation, Challenge to overcome andUplifting emotion and gratitude, Emotional Regulation and Sensory kit, yoga practice, sound therapy. This visit was conducted via video. Location of clinician: home Location of patient: home Time spent on video in [id number] contact with patient: 45 min more than half in counseling. documented in this encounter Plan of Treatment Not on filedocumented as of this encounter Visit Diagnoses Diagnosis Bilateral occipital neuralgia - Primary documented in this encounter Care Teams Nut Feeder Relationship Specialty Start Date End Date Needs Pcp, Assignment PCP - General 04/24/14 [place] [address] documented as of this encounter
--- OUTSIDE RECORDS SUMMARY | 2022-08-03 21:30 | XMS_ITS | Encounter Summary ---
:1975 Author [facility] Address [address] [facility] [place] [address] Care Team Providers Name Role Phone Needs Pcp, Assignment Primary Care Provider Reason for Referral Consult/Transfer Care (Routine) - Closed Specialty Diagnoses / Procedures Referred By Contact Refer red To Contact Diagnoses Occipital neuralgia of left side Barbara Lindsay APRN, CNP [address] [facility] [place] [address] Referral ID Status Reason Start Date Expiration Date Visits Requ ested Visits Authorized [id number] Closed 01/23/2020 04/23/2021 1 1 Scheduling Instructions Your provider has recommended an appoint ment with [facility]. You may call [phone] to schedule your appoi ntment. If you do not schedule an appointment within the next 1 to 3 business days, we will call you to help arrange your appointment. We suggest you call your [facility] insurance company about your coverage and benefits for this appointment. Consult/Transfer Care (Routine) - Closed Specialty Diagnoses / Procedures Referred By Contact Refer red To Contact Diagnoses Occipital neuralgia of left side Barbara Lindsay APRN, CNP [address] [facility] [place] [address] Referral ID Status Reason Start Date Expiration Date Visits Requ ested Visits Authorized [id number] Closed 01/23/2020 04/23/2021 1 1 Scheduling Instructions Your provider has recommended an appoint ment with [facility]. You may call [phone] to schedule your appoi ntment. If you do not schedule an appointment within the next 1 to 3 business days, we will call you to help arrange your appointment. We suggest you call your [employer] insurance company about your coverage and benefits for this appointment. Reason for Visit Reason Comments Telephone Call Billing Encounter Details Date Type Department Care Team Description 01/23/2020 Phone Visit [facility] Barbara Lindsay, Spondylosis of cervical lisa on without myelopathy or radiculopathy; [address] [place] Occipital neuralgia of left side [place], [place] [address] [address] [facility] [phone] [place] [address] (Wo rk) Social History Tobacco Use Types [...] as of this encounter Patient Instructions Patient InstructionsBarbara Lindsay APRN, CNP - 01/23/2020 9:40 AM CDT Treatment plan: 1. Referral to Viky Fuentes PA-C for living well consult. I emailed Viky today and put in an order for a consult. 2. Referral to Dr. Honeycutt for pain psychology, ordered placed today 3. VOCATIONAL REHABILITATION CONSULTANT reviewed and [place] refill was appropriate. She is using this very sparingly. A quantity of 14 was E prescribed. documented in this encounter Progress Notes Barbara Lindsay APRN, MEDICAL ADVISOR - 01/23/2020 9:40 AM CDT I conducted a scheduled telephone call visit with Vivek today at her request to discuss ongoing occipital neuralgia. Prior to the phone call I reviewed previous notes from Dr. Aparicio as well as the prescription monitoring program data. Patient reports ongoing occipital pain left greater than right. She is looking for guidance on treatment options. We reviewed past interventional, surgical, medication and other treatment trials she has utilized.. At one point she was pursuing an occipital nerve release surgery however due to various factors including insurance issues she has not followed up with that surgery. She states ???I am tired of pills?? and is looking for other options outside of daily medications to treat her pain. That being said, she is requesting a refill of [place] which she uses very sparinglyand only for severe pain. She indicates that she is on day 8 or 9 of his severe pain episode and is hopeful that [place] will help break the cycle. She is interested in integrative health techniques and has not yet met with Viky Fuentes PA-C here at [facility]. She is trying to eliminate gluten and may work next on eliminating sugar. She is interested Viky' s guidance on following an elimination diet. She has also never met with a pain psychologist. She mentioned that when she was considering the occipital nerve release surgery a psychological consultation was required. She felt very distraught at that point and was concerned that she was being told she was ???crazy?? . I reassured her that preoperative psychological consultations are not uncommon. We discussed the role of pain psychology. She currently has heightened stress and anxiety related to her pain as well as the Covid 19 outbreak so she did voiced interested in meeting with our psychologist through a video or telephone visit. Treatment plan: 1. Referral to Viky Fuentes PA-C for living well consult. I emailed Viky today and put in an order for a consult. 2. Referral to Dr. Honeycutt for pain psychology, ordered placed today 3. VOCATIONAL REHABILITATION CONSULTANT reviewed and [place] refill was appropriate. She is using this very sparingly. A quantity of 14 was E prescribed. documented in this encounter Plan of Treatment Scheduled Referrals Name Type Priority Associated Diagnoses Order S chedule Pain-Medical Adult Referral Routine Occipital neuralgia of Ordered: 01/23/2020 Consult [facility] left side INTEGRATIVE MEDICINE Referral Routine Occipital neuralgia of Ordered: 01/23/2020 CONSULT left side documented as of this encounter Visit Diagnoses Diagnosis Spondylosis of cervical region without m yelopathy or radiculopathy ([facility]) Cervical spondylosis without myelopathy Occipital neuralgia of left side documented in this encounter Care Teams Care Asst Relationship Specialty Start Date End Date Needs Pcp, Assignment PCP - General 04/24/14 [place] [address] documented as of this encounter
--- OUTSIDE RECORDS SUMMARY | 2022-08-03 21:31 | XMS_ITS | Encounter Summary ---
:1975 Author [facility] Address [address] [place] [address] Care Team Providers Name Role Phone Needs Pcp, Assignment Primary Care Provider Reason for Visit Reason Comments QUESTIONS, GENERAL Encounter Details Date Type Department Care Team Description 10/03/2018 Telephone [facility] Marlen Guillen RN QUESTIONS, GENERAL [address] [place], [place] [address] Social History Tobacco Use Types [...] documented as of this encounter Nursing Notes Marlen Guillen RN - 10/03/2018 1:14 PM CST Pt calling for refill of [place]. States Naltrexone is not working and she would like you to call her to discuss a consult she has in [place] on 09/11 to have a nerve release procedure done. NEERING ILLUSTRATOR documented in this encounter Plan of Treatment Not on filedocumented as of this encounter Visit Diagnoses Diagnosis Spondylosis of cervical region without m yelopathy or radiculopathy ([facility]) Cervical spondylosis without myelopathy Occipital neuralgia of left side documented in this encounter Care Teams Blast Furnace Blower Relationship Specialty Start Date End Date Needs Pcp, Assignment PCP - General 04/24/14 [place] [address] documented as of this encounter
--- OUTSIDE RECORDS SUMMARY | 2022-08-03 21:31 | XMS_ITS | Encounter Summary ---
:1975 Author Organization [email or web address] Address [address], [place] [address] Care Team Providers Name Role Phone Needs Pcp, Assignment Primary Care Provider Reason for Visit Reason Comments Refill Encounter Details Date Type Department Care Team Description 10/09/2018 Refill [facility] Lu Campos, RN Refill [address] [place], [place] [address] Social History Tobacco Use Types [...] encounter Nursing Notes Dakota Aparicio MD - 10/09/2018 3:28 PM CST I called and left a message for Vivek. Would hold off on [place] right now for her headaches, as theycan lead to rebound headaches. In terms of the occipital nerve release, this may be an option for her. I would be happy to talk about it at our next appointment, or we can try to connect on the phone on a later date. Dakota Aparicio MD 10/09/2018, 3:32 PM TEGIC INTELLIGENCE OFFICER Lu Campos RN - 10/09/2018 12:22 PM CST Images from the original note were not included. Patient phones requesting to speak with Dr. Aparicio regarding upcoming appointment with MD in [place] for occipital nerve release and requests norco refill. Last filled #15 on 06-26-18. INFRASTRUCTURE MANAGER for refill. TEGIC INTELLIGENCE OFFICER documented in this encounter Plan of Treatment Not on filedocumented as of this encounter Visit Diagnoses Diagnosis Spondylosis of cervical region without m yelopathy or radiculopathy (HRC) Cervical spondylosis without myelopathy Occipital neuralgia of left side documented in this encounter Care Teams Prorate Clerk Relationship Specialty Start Date End Date Needs Pcp, Assignment PCP - General 04/24/14 [place] [address] documented as of this encounter
--- OUTSIDE RECORDS SUMMARY | 2022-08-03 21:31 | XMS_ITS | Encounter Summary ---
:1975 Author Organization [employer] Address [address] [place] [address] Care Team Providers Name Role Phone Needs Pcp, Assignment Primary Care Provider Reason for Visit Reason Comments NECK PAIN Encounter Details Date Type Department Care Team Description 06/29/2018 Office Visit [facility] Dakota Aparicio MD [address] [place] [address] Spondylosis of cervical region without m yelopathy or radiculopathy (Primary Dx); [address], [facility] Rad Rn Occipital neuralgia of left side [place], [place] [address] Social History Tobacco Use Types Packs/Day Years [...] Sign Reading Time Taken Comments Blood Pressure 123/85 06/29/2018 3:04 PM CDT Pulse 82 06/29/2018 3:04 PM CDT Temperature - - Respiratory Rate 14 06/29/2018 3:04 PM CDT Oxygen Saturation - - Inhaled Oxygen Concentration - - Weight - - Height - - Body Mass Index - - documented in this encounter Patient Instructions Patient InstructionsDakota Aparicio MD - 06/29/2018 2:50 PM CDT 1) Pain psychology referral 2) Viky Fuentes referral 3) Increase the topamax to 50mg twice a day (or 100mg at night) 4) Will try low dose naltrexone - start at 4.5mg at night. We can increase this to 9mg in the future. Consider elavil or cymbalta in the future documented in this encounter Progress Notes Cristina Gallegos CMA - 06/29/2018 2:50 PM CDT Images from the original note were not included. Asphalt Mixing Machine Operator For follow up Dakota Aparicio MD - 06/29/2018 2:50 PM CDT Interventional Pain Follow-up Appointment Subjective: Vivek Echeverria is a 43 y.o. year-old female who is here today for follow-up. She is s/p a cervicalRFA - had 1 month of relief and felt completely normal. Since then the pain has returned and she is very frustrated with it's presence. She has no radicular symptoms. The pain is good in the morning,but increases throughout the day. She is recently in the emergency room for an ongoing migraine. Shehas restarted her topamax, has been taking Excedrin Migraine. She is not currently taking [place]. Medications: Topamax - 50mg QHS Excedrin migraine - has been taking this every morning. Elavil - hasn't been taking this - put on weight with this. Tizanidine - doesn't like this - gives me a head buzz. Doesn't really work. Flexeril - PRN rarely. Cymbalta [place] - hasn't refilled this yet. ROS 02/07 negative Current Medications: Outpatient Medications Prior to Visit Medication Sig Dispense Refill ??? cyclobenzaprine (FLEXERIL) 10 MG tablet Take 1 Tab by mouth at bedtime as needed for Muscle Spasms. (Patient not taking: Reported on 06/29/2018) 30 Tab 0 ??? HYDROcodone-acetaminophen (NORCO) 5-325 MG tablet Take 1/2 tab daily as needed 15 Tablet 0 ??? HYDROcodone-acetaminophen (NORCO) 5-325 MG tablet Take 1/2 tab every other day as needed. 20 Tab0 ??? ondansetron (ZOFRAN-ODT) 4 MG disintegrating tablet Take 1-2 Tabs by mouth every 8 hours as needed for Nausea or Other (Headache). 60 Tab 3 ??? SUMAtriptan (IMITREX) 100 MG tablet 1 tab at onset of migraine, repeat if needed in 1-2 hrs, max2 a day, max 9 days per month. 12 Tab 1 ??? tiZANidine (ZANAFLEX) 2 MG tablet Take 1-2 Tabs by mouth two times daily as needed (pain). (Patient not taking: Reported on 06/29/2018) 60 Tab 0 ??? tiZANidine (ZANAFLEX) 4 MG capsule TAKE 1 CAPSULE BY MOUTH EVERY 6 TO 8 HOURS NEEDED (Patientnot taking: Reported on 06/29/2018) 20 Capsule 0 ??? topiramate (TOPAMAX) 25 MG tablet TAKE 3 TABLETS BY MOUTH DAILY AT BEDTIME 90 Tab 0 ??? estrogens, esterified,-methyltestosterone (ESTRATESTH.S.) 0.625-1.25 MG tablet Take 1 Tab by mouth daily. Facility-Administered Medications Prior to Visit Medication Dose Route Frequency Provider Last Rate Last Dose ??? fentaNYL (SUBLIMAZE) injection 25-100 mcg 25-100 mcg Intravenous PRN Dakota Aparicio MD 50 mcg at 04/28/18 1001 ??? midazolam (VERSED) injection 1-2 mg 1-2 mg Intravenous PRN Dakota Aparicio MD 2 mg at 04/28/18 0947 Objective BP 123/85 Pulse 82 Resp 14 Estimated body mass index is 20.78 kg/(m^2) as calculated from the following: Height as of 04/28/18: 1.803 m (5' 11). Weight as of 04/28/18: 67.6 kg (149 lb). Appearance: Grooming: appropriate Level of Distress: NAD Assistive Devices: none Physical Exam: General: No apparent distress HEENT: Pupils equal and round, nasopharynx clear Resp: Non-labored breathing Psych: Oriented; appropriate affect and insight, non-pressured speech Neuromuscular Exam: TTP in the left occipital region. There is no neck tenderness or cervical paraspinal tenderness. She has good range of motion of her neck. Strength is 5 out of 5 and intact in upper extremities. Sensation is intact in upper extremities. Assessment: Vivek is a 43 y.o. year-old female with: ICD-10-CM 1. Spondylosis of cervical region without myelopathy or radiculopathy ([facility]) M47.812 2. Occipital neuralgia of left side M54.81 Pain is really in the occipital region on the left side. There is not pain in the cervical paraspinal region. There have been 2 instances when she has been pain free: one was after starting elavil (shedoesn't want to take this because of weight gain), the other was one month after the TON RFA. She has no radicular symptoms. If this is in fact TON pain, I would be surprised at the rate of nerve regeneration lasting only a month. I told her repeating the RFA every month would not be sustainable. At this point we are going to try increasing her topamax as tolerated (I reminded her that this can interfere with control but she had an oophorectomy). Will also try low dose naltrexone - which would be an off label use; this has evidence of an anti-inflammatory effect in the FOOD AND BEVERAGE ASSOCIATE. I told her she cannot be on opioids while starting this, and has to wait 7-10 days off opioids prior to starting naltrexone. She is also going get a second opinion regarding a AA injection. I told her these are high risk injections and they work transiently, but in certain patients can provide meaningful relief. [facility] to possibly see Dr. Herman. Plan: 1) Pain psychology referral 2) Viky Fuentes referral 3) Increase the topamax to 50mg twice a day (or 100mg at night) 4) Will try low dose naltrexone - start at 4.5mg at night. We can increase this to 9mg in the future. Consider elavil or cymbalta in the future Dakota Aparicio MD 06/29/2018, documented in this encounter Plan of Treatment Not on filedocumented as of this encounter Visit Diagnoses Diagnosis Spondylosis of cervical region without m yelopathy or radiculopathy ([facility]) - Primary Cervical spondylosis without myelopathy Occipital neuralgia of left side documented in this encounter Care Teams Refueling Ramp Attendant Relationship Specialty Start Date End Date Needs Pcp, Assignment PCP - General 04/24/14 [place] [address] documented as of this encounter
--- OUTSIDE RECORDS SUMMARY | 2022-08-03 21:31 | XMS_ITS | Encounter Summary ---
:1975 Author Organization [facility] Address [address] [address] Care Team Providers Name Role Phone Needs Pcp, Assignment Primary Care Provider Reason for Visit Reason Comments ERRONEOUS ENTRY Encounter Details Date Type Department Care Team Description 04/17/2019 Telephone [facility] Marlen Guillen RN ERRONEOUS ENTRY [address] [place], [place] [address] Social History Tobacco Use Types [...] on filedocumented in this encounter Care Teams Unemployment Inspector Relationship Specialty Start Date End Date Needs Pcp, Assignment PCP - General 04/24/14 [place] [address] documented as of this encounter
--- OUTSIDE RECORDS SUMMARY | 2022-08-03 21:31 | XMS_ITS | Encounter Summary ---
:1975 Author [facility] Address [address] [place] [address] Care Team Providers Name Role Phone Needs Pcp, Assignment Primary Care Provider Reason for Visit Reason Onset Date Comments Refill 04/25/2019 Refill 04/30/2019 Encounter Details Date Type Department Care Team Description 04/25/2019 Refill [facility] Lu Campos RN Refill; Refill [address] [place], [place] [address] Social History Tobacco Use Types [...] documented as of this encounter Progress Notes Lu Campos RN - 04/30/2019 1:23 PM CDT Addended by: LU CAMPOS on: 04/30/2019 01:23 PM Modules accepted: Orders Lu Campos RN - 04/30/2019 1:16 PM CDT Addended by: LU CAMPOS on: 04/30/2019 01:16 PM Modules accepted: Orders documented in this encounter Plan of Treatment Not on filedocumented as of this encounter Visit Diagnoses Not on filedocumented in this encounter Care Teams Hop Weigher Relationship Specialty Start Date End Date Needs Pcp, Assignment PCP - General 04/24/14 [place] [address] documented as of this encounter
--- OUTSIDE RECORDS SUMMARY | 2022-08-03 21:31 | XMS_ITS | Encounter Summary ---
:1975 Author Organization [employer] Address [address] [address] Care Team Providers Name Role Phone Needs Pcp, Assignment Primary Care Provider Reason for Visit Reason Comments QUESTIONS, GENERAL Encounter Details Date Type Department Care Team Description 07/26/2018 Telephone [facility] Lu Campos, QUESTIONS, GENERAL [address] [place], [place] [address] Social History Tobacco Use Types [...] encounter Nursing Notes Cristina Gallegos CMA - 07/27/2018 2:39 PM CDT Spoke with patient and advised Prince Aparicio's recommendation. Cristina Gallegos CMA - 07/27/2018 11:[address] Ney Aparicio, patient should continue Naltrexone same dose and strength and add in the previously prescribed Topamax, starting with 1 tab at night, for 1 month. Cristina Gallegos CMA - 07/27/2018 11:01 AM CDT Spoke with patient - she states she has no change in her pain type or symptoms. She states she has no new aggravating factors. She would like to increase naltrexone. Lu Campos RN - 07/26/2018 2:25 PM CDT Patient phoned reporting past 8-9 days she has had amazing results, but today symptoms returned. States she has not been taking topamax and is taking naltrexone 9mg. Advised to resume topamax per last office plan of care. Please advise. documented in this encounter Plan of Treatment Not on filedocumented as of this encounter Visit Diagnoses Not on filedocumented in this encounter Care Teams Cracker Off Relationship Specialty Start Date End Date Needs Pcp, Assignment PCP - General 04/24/14 [place] [address] documented as of this encounter
--- OUTSIDE RECORDS SUMMARY | 2022-08-03 21:31 | XMS_ITS | Encounter Summary ---
:1975 Author Organization [facility] Address [address] [address] Care Team Providers Name Role Phone Needs Pcp, Assignment Primary Care Provider Reason for Visit Reason Comments Refill Encounter Details Date Type Department Care Team Description 04/08/2018 Refill [facility] Dakota Aparicio MD Refill [address] [place] [address] [phone] (Wo rk) Social History Tobacco Use Types Packs/Day Years Used Date Smoking Tobacco: Never Smokeless Tobacco: Never Alcohol Use Standard Drinks/Week Comments No 0 (1 standard drink = 0.6 oz [...] documented as of this encounter Nursing Notes Erin Askew, RN - 04/10/2018 8:39 AM CDT Refill request for Topamax. Last OV 02/2018. Refilled per protocol. documented in this encounter Plan of Treatment Not on filedocumented as of this encounter Visit Diagnoses Diagnosis Spondylosis of cervical region without m yelopathy or radiculopathy ([facility]) Cervical spondylosis without myelopathy documented in this encounter Care Teams Advertising Account Representative Relationship Specialty Start Date End Date Needs Pcp, Assignment PCP - General 04/24/14 [place], [place] [address] documented as of this encounter
--- OUTSIDE RECORDS SUMMARY | 2022-08-03 21:31 | XMS_ITS | Encounter Summary ---
:1975 Author Organization [facility] Address [address] [address] Care Team Providers Name Role Phone Needs Pcp, Assignment Primary Care Provider Reason for Visit Reason Onset Date Comments Refill 04/12/2019 Encounter Details Date Type Department Care Team Description 04/12/2019 Refill [facility] Lu Campos, RN Refill [address] [place], [place] [address] Social History Tobacco Use Types [...] myelopathy documented in this encounter Care Teams Cracking Still Operator Relationship Specialty Start Date End Date Needs Pcp, Assignment PCP - General 04/24/14 [place] [address] documented as of this encounter
--- OUTSIDE RECORDS SUMMARY | 2022-08-03 21:31 | XMS_ITS | Encounter Summary ---
:1975 Author Organization [employer] Address [address], [place] [address] Care Team Providers Name Role Phone Needs Pcp, Assignment Primary Care Provider Reason for Visit Reason Comments Refill Encounter Details Date Type Department Care Team Description 10/11/2018 Telephone [facility] Lu Campos, RN Refill [address] [place], [place] [address] Social History Tobacco Use Types [...] encounter Nursing Notes Dakota Aparicio MD - 10/12/2018 4:44 PM CST I talked with Vivek - I would like her to restart her naltrexone and the elavil at night. I'd be happy to talk with the surgeon in [place] about the procedure. Dakota Aparicio MD 10/12/2018, 4:45 PM [place] ATTENDANT Lu Campos RN - 10/11/2018 10:03 AM CST Refill request was sent by patient pharmacy for both tizanidine and cyclobenzaprine. Last visit on 09-12-18, patient stated tizanidine doesn't really work and cyclobenzaprine use is rare. Clarified with patient if refills were required for either of these medications, who stated she was looking for any relief since norco refill was denied. Patient states she had botox last week for migraines and requests norco refill for occiptial nerve pain. Patient also requests Dr. Aparicio call her after her appointment with MD in [place] tomorrow. [place] ATTENDANT documented in this encounter Plan of Treatment Not on filedocumented as of this encounter Visit Diagnoses Not on filedocumented in this encounter Care Teams Interlibrary Loan Services Librarian Relationship Specialty Start Date End Date Needs Pcp, Assignment PCP - General 04/24/14 [place] [address] documented as of this encounter
--- OUTSIDE RECORDS SUMMARY | 2022-08-03 21:31 | XMS_ITS | Encounter Summary ---
:1975 Author Organization [facility] Address [address] [address] Care Team Providers Name Role Phone Needs Pcp, Assignment Primary Care Provider Reason for Visit Reason Onset Date Comments Refill 06/15/2019 Encounter Details Date Type Department Care Team Description 06/15/2019 Refill [facility] Lu Campos, RN Refill [address] [place], [place] [address] Social History Tobacco Use Types [...] myelopathy documented in this encounter Care Teams Crane Oiler Relationship Specialty Start Date End Date Needs Pcp, Assignment PCP - General 04/24/14 [place] [address] documented as of this encounter
--- OUTSIDE RECORDS SUMMARY | 2022-08-03 21:31 | XMS_ITS | Encounter Summary ---
:1975 Author Organization [facility] Address [address] [address] Care Team Providers Name Role Phone Needs Pcp, Assignment Primary Care Provider Reason for Visit Reason Comments Refill Encounter Details Date Type Department Care Team Description 06/25/2018 Refill [facility] Dakota Aparicio MD Refill [address] [place] [address] [phone] (Wo rk) Social History Tobacco Use Types [...] encounter Nursing Notes Cristina Gallegos CMA - 06/27/2018 11:24 AM CDT Images from the original note were not included. [facility] request refill Tizanidine 4 mg. Last office visit 03/07/2018. Upcoming office visit 06/29/2018. Please advise. Last directions written for Tizanidine was on 08/04/2017: 3) Tizanidine 2-4mg twice a day as needed for neck pain - can cause sedation. BOX OFFICE MANAGER for Rx refill request documented in this encounter Plan of Treatment Not on filedocumented as of this encounter Visit Diagnoses Not on filedocumented in this encounter Care Teams Nursing Staffing Coordinator Relationship Specialty Start Date End Date Needs Pcp, Assignment PCP - General 04/24/14 [place] [address] documented as of this encounter
--- OUTSIDE RECORDS SUMMARY | 2022-08-03 21:31 | XMS_ITS | Encounter Summary ---
:1975 Author Organization [facility] Address [address] [address] Care Team Providers Name Role Phone Needs Pcp, Assignment Primary Care Provider Encounter Details Date Type Department Care Team Description 12/11/2018 Notes/Orders [facility] [address] Mario Krishna MD Neurology [address] [facility] [address] [facility] [address] [place] [phone] (Wo rk) Social History Tobacco Use Types [...] documented as of this encounter Progress Notes Cary Jin LPN - 12/11/2018 3:48 PM CST Purging appointment request form from [facility]. Patient was mailed the questionnaireon 11/02/17 and did not return it. GER FURNITURE documented in this encounter Plan of Treatment Not on filedocumented as of this encounter Visit Diagnoses Not on filedocumented in this encounter Care Teams Account Liaison Hospice Relationship Specialty Start Date End Date Needs Pcp, Assignment PCP - General 04/24/14 [place] [address] documented as of this encounter
--- OUTSIDE RECORDS SUMMARY | 2022-08-03 21:31 | XMS_ITS | Encounter Summary ---
:1975 Author Organization [facility] Address [address], [place] [address] Care Team Providers Name Role Phone Needs Pcp, Assignment Primary Care Provider Reason for Visit Reason Onset Date Comments Refill Refill 09/14/2018 Encounter Details Date Type Department Care Team Description 07/27/2018 Refill [facility] 3931 Mario Krishna MD Refill; Refill Neurology [address] [facility] [address] [facility] [address] [place] [address] [place], [place] [phone] (Wo rk) Social History Tobacco Use Types [...] documented as of this encounter Progress Notes Jimi Grace RN - 09/14/2018 10:40 AM TECHNICAL ILLUSTRATIONS MAP INKER Addended by: JIMI REZA on: 09/14/2018 10:40 AM Modules accepted: Orders NICAL ILLUSTRATIONS MAP INKER documented in this encounter Nursing Notes Jimi Grace RN - 09/14/2018 10:53 AM CST Called pharmacy to disregard the script. NICAL ILLUSTRATIONS MAP INKER Vilma Clemente RN - 07/27/2018 2:[address] Garcia pt documented in this encounter Plan of Treatment Not on filedocumented as of this encounter Visit Diagnoses Diagnosis Migraine without aura and without status migrainosus, not intractable Migraine without aura, without mention o f intractable migraine without mention of status migrainosus documented in this encounter Care Teams Funeral Home Manager Relationship Specialty Start Date End Date Needs Pcp, Assignment PCP - General 04/24/14 [place] [address] documented as of this encounter
--- OUTSIDE RECORDS SUMMARY | 2022-08-03 21:31 | XMS_ITS | Encounter Summary ---
:1975 Author Organization [facility] Address [address] [place] [address] Care Team Providers Name Role Phone Needs Pcp, Assignment Primary Care Provider Reason for Visit Reason Comments Follow-up neck pain Encounter Details Date Type Department Care Team Description 12/14/2018 Office Visit [facility] Dakota Aparicio MD [address] [place] [address] Spondylosis of cervical region without m yelopathy or radiculopathy (Primary Dx); [address] [facility] Occipital neuralgia of left side; [place], [place] Occipital he adache [address] Social History Tobacco Use Types Packs/Day Years [...] Sign Reading Time Taken Comments Blood Pressure 136/85 12/14/2018 2:57 PM CLEANING MAID Pulse 89 12/14/2018 2:57 PM CLEANING MAID Temperature - - Respiratory Rate 16 12/14/2018 2:57 PM CLEANING MAID Oxygen Saturation 100% 12/14/2018 2:57 PM CLEANING MAID Inhaled Oxygen Concentration - - Weight - - Height - - Body Mass Index - - documented in this encounter Patient Instructions Patient InstructionsJohnson, Dakota G, MD - 12/14/2018 2:30 PM CST Images from the original note were not included. 1) Cymbalta - start at 30mg daily X 7 days, then 60 mg thereafter ??? The risks and benefits of the [...] can occur with stopping this medication abruptly. 2) Refills on tizanidine Tizanidine What is this drug used for? . It is used to calm muscles. . It may be given to you for other reasons. Talk with the doctor. What do I need to tell my doctor BEFORE I take this drug? . If you have an allergy to tizanidine or any other part of this drug. . If you are allergic to any drugs like this one, any other drugs, foods, or other substances. Tell your doctor about the allergy and what signs you had, like rash; hives; itching; shortness of breath;wheezing; cough; swelling of face, lips, tongue, or throat; or any other signs. . If you are taking any of these drugs: Ciprofloxacin or fluvoxamine. . This is not a list of all drugs or health problems that interact with this drug. . Tell your doctor and pharmacist about all of your drugs (prescription or OTC, natural products, vitamins) and health problems. You must check to make sure that it is safe for you to take this drug with all of your drugs and health problems. Do not start, stop, or change the dose of any drug without checking with your doctor. What are some things I need to know or do while I take this drug? . Tell all of your health care providers that you take this drug. This includes your doctors, nurses, pharmacists, and dentists. . Avoid driving and doing other tasks or actions that call for you to be alert until you see how this drug affects you. . To lower the chance of feeling dizzy or passing out, rise slowly over a few minutes when sitting or lying down. Be careful climbing stairs. . Do not stop taking this drug all of a sudden without calling your doctor. You may have a greater risk of side effects. If you need to stop this drug, you will want to slowly stop it as ordered by your doctor. . Have your blood work checked. Talk with your doctor. . Do not change from the capsule to the tablet or from the tablet to the capsule. . Talk with your doctor before you drink alcohol or use other drugs and natural products that slow your actions. . If you are 65 or older, use this drug with care. You could have more side effects. . Tell your doctor if you are or plan on getting . You will need to talk about the benefits and risks of using this drug while you are . . Tell your doctor if you are breast-feeding. You will need to talk about any risks to your baby. What are some side effects that I need to call my doctor about right away? . WARNING/CAUTION: Even though it may be rare, some people may have very bad and sometimes deadly side effects when taking a drug. Tell your doctor or get medical help right away if you have any of thefollowing signs or symptoms that may be related to a very bad side effect: . Signs of an allergic reaction, like rash; hives; itching; red, swollen, blistered, or peeling skinwith or without fever; wheezing; tightness in the chest or throat; trouble breathing or talking; unusual hoarseness; or swelling of the mouth, face, lips, tongue, or throat. . Signs of liver problems like dark urine, feeling tired, not hungry, upset stomach or stomach pain,light-colored stools, throwing up, or yellow skin or eyes. . Signs of infection like fever, chills, very bad sore throat, ear or sinus pain, cough, more sputumor change in color of sputum, pain with passing urine, mouth sores, or wound that will not heal. . Very bad dizziness or passing out. . Feeling confused. . Hallucinations (seeing or hearing things that are not there). . Mood changes. . Change in the way you act. . Slow heartbeat. . Trouble controlling body movements. . Back pain. What are some other side effects of this drug? . All drugs may cause side effects. However, many people have no side effects or only have minor side effects. Call your doctor or get medical help if any of these side effects or any other side effects bother you or do not go away: . Dry mouth. . Feeling sleepy. . Feeling tired or weak. . Dizziness. . These are not all of the side effects that may occur. If you have questions about side effects, call your doctor. Call your doctor for medical advice about side effects. . You may report side effects to your national health agency. How is this drug best taken? . Use this drug as ordered by your doctor. Read all information given to you. Follow all instructions closely. . Take with or without food. Always take with food or always take on an empty stomach. . You may sprinkle contents of capsule on applesauce. Do not chew. . Keep taking this drug as you have been told by your doctor or other health care provider, even if you feel well. What do I do if I miss a dose? . Take a missed dose as soon as you think about it. . If it is close to the time for your next dose, skip the missed dose and go back to your normal time. . Do not take 2 doses at the same time or extra doses. How do I store and/or throw out this drug? . Store at room temperature. . Protect from light. . Store in a dry place. Do not store in a bathroom. . Keep all drugs in a safe place. Keep all drugs out of the reach of children and pets. . Check with your pharmacist about how to throw out unused drugs. General drug facts . If your symptoms or health problems do not get better or if they become worse, call your doctor. . Do not share your drugs with others and do not take anyone else's drugs. . Keep a list of all your drugs (prescription, natural products, vitamins, OTC) with you. Give this list to your doctor. . Talk with the doctor before starting any new drug, including prescription or OTC, natural products, or vitamins. . Some drugs may have another patient information leaflet. If you have any questions about this drug, please talk with your doctor, nurse, pharmacist, or other health care provider. . If you think there has been an overdose, call your poison control center or get medical care rightaway. Be ready to tell or show what was taken, how much, and when it happened NING MAID documented in this encounter Progress Notes Cristina Gallegos CMA - 12/14/2018 2:30 PM CST Images from the original note were not included. Current med's ?? Naltrexone Imitrex - not taking as it causes worsening pain Zofran Topamax Tizanidine not currently taking - no prescription refill given BUNDLE TIER AND LABELER for follow up NING MAID Dakota Aparicio MD - 12/14/2018 2:30 PM CST Interventional Pain Follow-up Appointment Subjective: Vivek Echeverria is a 43 y.o. year-old female who is here today for follow-up. The pain has migratedto the right side. The left side has somewhat stabilized. She did try botox, not sure if it is helping. She did see a plastic surgeon in [place], [place] who felt she may benefit from an occipital nerve decompression. She is considering this option. She is wondering about retrying tizanidine. ROS: No arm pain, weakness, no fevers. Medications: Topamax - 50mg QHS LDN 9mg mobic ? Excedrin migraine - has been taking this every morning. Elavil 50-100mg- hasn't been taking this - put on weight with this. Tizanidine - doesn't like this - gives me a head buzz. Doesn't really work. Flexeril - PRN rarely. Cymbalta - stopped this, or at least doesn't remember if she has taken this. . Current Medications: Outpatient Medications Prior to Visit Medication Sig Note Dispense Refill ??? cyclobenzaprine (FLEXERIL) 10 MG tablet Take 1 Tab by mouth at bedtime as needed for Muscle Spasms. (Patient not taking: Reported on 12/14/2018) 30 Tab 0 ??? HYDROcodone-acetaminophen (NORCO) 5-325 MG tablet Take 1/2 tab every other day as needed. 20 Tab0 ??? naltrexone (REVIA) 50 MG tablet Compounded low dose naltrexone. 4.5mg QHS X 7 days, then 9mg QHSthereafter. 60 Tablet 3 ??? ondansetron (ZOFRAN-ODT) 4 [...] Reported on 12/14/2018) 12 Tablet 0 ??? topiramate (TOPAMAX) 25 MG tablet TAKE 3 TABLETS BY MOUTH DAILY AT BEDTIME 90 Tab 0 ??? VIENVA 0.1-20 MG-MCG tablet 06/29/2018: Received from: External Pharmacy ??? tiZANidine (ZANAFLEX) 4 MG capsule TAKE 1 CAPSULE BY MOUTH EVERY 6 TO 8 HOURS NEEDED (Patientnot taking: Reported on 12/14/2018) 20 Capsule 0 Facility-Administered Medications Prior to Visit Medication Dose Route Frequency Provider Last Rate Last Dose ??? fentaNYL (SUBLIMAZE) injection 25-100 mcg 25-100 mcg Intravenous PRN Dakota Aparicio MD 50 mcg at 04/28/18 1001 ??? midazolam (VERSED) injection 1-2 mg 1-2 mg Intravenous PRN Dakota Aparicio MD 2 mg at 04/28/18 0947 Objective BP 136/85 Pulse 89 Resp 16 SpO2 100% Estimated body mass index is 20.78 kg/m?? as calculated from the following: Height as of 04/28/18: 1.803 m (5' 11). Weight as of 04/28/18: 67.6 kg (149 lb). Appearance: Grooming: appropriate Level of Distress: NAD Assistive Devices: none Physical Exam: General: No apparent distress HEENT: Pupils equal and round, nasopharynx clear Resp: Non-labored breathing Psych: Oriented; appropriate affect and insight, non-pressured speech Assessment: Vivek is a 43 y.o. year-old female with: ICD-10-CM 1. 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 Occipital neuralgia of left side M54.81 3. Occipital headache R51 Risks / side effects of medications were reviewed. Refills on tizanidine, will also retry cymbalta Other options to consider would be an occipital nerve stimulator I told her I am not familiar with occipital nerve decompression, but I did talk to the plastic surgeon (per her request) who sounded very experienced with the procedure and reports good outcomes. Plan: 1) Cymbalta - start at 30mg daily X 7 days, then 60 mg thereafter ??? The risks and benefits of the [...] can occur with stopping this medication abruptly. 2) Refills on tizanidine Dakota Aparicio MD 12/14/2018, NING MAID documented in this encounter Plan of Treatment Not on filedocumented as of this encounter Visit Diagnoses Diagnosis Spondylosis of cervical region without m yelopathy or radiculopathy (HRC) - Primary Cervical spondylosis without myelopathy Occipital neuralgia of left side Occipital headache Headache documented in this encounter Care Teams Crop Picker Relationship Specialty Start Date End Date Needs Pcp, Assignment PCP - General 04/24/14 [place] [address] documented as of this encounter
--- OUTSIDE RECORDS SUMMARY | 2022-08-03 21:31 | XMS_ITS | Encounter Summary ---
:1975 Author Organization [facility] Address [address] [address] Care Team Providers Name Role Phone Needs Pcp, Assignment Primary Care Provider Reason for Visit Reason Onset Date Comments Refill 05/14/2019 Encounter Details Date Type Department Care Team Description 05/14/2019 Refill [facility] Kaylah Morgan RN Refill [address] [place], [place] [address] Social History Tobacco Use Types [...] myelopathy documented in this encounter Care Teams Pin Ticket Machine Operator Relationship Specialty Start Date End Date Needs Pcp, Assignment PCP - General 04/24/14 [place] [address] documented as of this encounter
--- OUTSIDE RECORDS SUMMARY | 2022-08-03 21:31 | XMS_ITS | Encounter Summary ---
:1975 Author [facility] Address [address], [place] [address] Care Team Providers Name Role Phone Needs Pcp, Assignment Primary Care Provider Reason for Visit Reason Onset Date Comments Refill 06/26/2018 Encounter Details Date Type Department Care Team Description 06/26/2018 Refill [facility] Dakota Aparicio MD Refill [address] [place] [address] [phone] (Wo rk) Social History Tobacco Use Types [...] as of this encounter Nursing Notes Leyla Mendez, RN - 06/26/2018 3:34 PM CDT Images from the original note were not included. ELECTRICAL AND RADIO MECHANIC for refill. Patient had appointment for 06/15/18, but at clinic request, it was changed. Now has appointment for 06/29/18 documented in this encounter Plan of Treatment Not on filedocumented as of this encounter Visit Diagnoses Diagnosis Spondylosis of cervical region without m yelopathy or radiculopathy (HRC) Cervical spondylosis without myelopathy Occipital headache Headache Occipital neuralgia of left side documented in this encounter Care Teams Aircraft Loadmaster Superintendent Relationship Specialty Start Date End Date Needs Pcp, Assignment PCP - General 04/24/14 [place] [address] documented as of this encounter
--- OUTSIDE RECORDS SUMMARY | 2022-08-03 21:31 | XMS_ITS | Encounter Summary ---
:1975 Author [facility] Address [address], [place] [address] Care Team Providers Name Role Phone Needs Pcp, Assignment Primary Care Provider Reason for Visit Reason Comments QUESTIONS, GENERAL Encounter Details Date Type Department Care Team Description 06/22/2018 Telephone [facility] Marlen Guillen RN QUESTIONS, GENERAL [address] [place], [place] [address] Social History Tobacco Use Types [...] encounter Nursing Notes Dakota Aparicio MD - 06/23/2018 10:20 AM CDT I called and talked to Vivek. The RFA worked great for 4 weeks, then the pain came back. Her migraines are still better. She will schedule an appointment with me to discuss next steps. Dakota Aparicio MD 06/23/2018, 10:22 AM Marlen Guillen RN - 06/22/2018 8:53 AM CDT Pt called and is expecting a phone call from Dr Aparicio, and called to remind us that he hasn't talked to her yet. She called because of her pain, but would not give specifics. documented in this encounter Plan of Treatment Not on filedocumented as of this encounter Visit Diagnoses Not on filedocumented in this encounter Care Teams Mold Yard Supervisor Relationship Specialty Start Date End Date Needs Pcp, Assignment PCP - General 04/24/14 [place] [address] documented as of this encounter
--- OUTSIDE RECORDS SUMMARY | 2022-08-03 21:31 | XMS_ITS | Encounter Summary ---
:1975 Author Organization [employer] Address [address], [place] [address] Care Team Providers Name Role Phone Needs Pcp, Assignment Primary Care Provider Reason for Visit Reason Comments Pain Headaches Encounter Details Date Type Department Care Team Description 10/30/2018 Telephone [facility] Lu Campos, Pain (Headaches) [address] [facility] RN [place], [place] [address] Social History Tobacco Use Types [...] encounter Nursing Notes Lu Campos RN - 10/30/2018 3:42 PM CST Message left by patient requesting recommendations regarding pain management. Patient stated MD in [place] is suppose to call Dr. Aparicio regarding care collaboration. Patient reports she has been on naltrexone for 3 weeks, has 5 days left, but states it is not working this time. Also, continues taking T opamax, aleve, amitriptyline and using heat. Asking for recommendations, stating I need break from pain prior to occipital nerve release. Message reviewed by Dr. Aparicio who recommends to finish course of naltrexone and follow up next week in clinic. Patient advised and transferred to scheduling. AGE DIVER documented in this encounter Plan of Treatment Not on filedocumented as of this encounter Visit Diagnoses Not on filedocumented in this encounter Care Teams Stone Rougher Relationship Specialty Start Date End Date Needs Pcp, Assignment PCP - General 04/24/14 [place] [address] documented as of this encounter
--- OUTSIDE RECORDS SUMMARY | 2022-08-03 21:31 | XMS_ITS | Encounter Summary ---
:1975 Author Organization [employer] Address [address] [address] Care Team Providers Name Role Phone Needs Pcp, Assignment Primary Care Provider Reason for Visit Reason Onset Date Comments Refill 06/09/2018 Encounter Details Date Type Department Care Team Description 06/09/2018 Refill [facility] Dakota Aparicio MD Refill [id number] [place] [address] [phone] (Wo rk) Social History Tobacco Use Types [...] documented as of this encounter Nursing Notes Johnathan Perez MD - 06/09/2018 9:[address] Aparicio's note from February states: Refills on [place] today - any future refills needs a clinic visit. There was a procedure visit, and an additional refill on 04/21. She has an appointment set for 06/15. Based on these factors, we'll provide 15 tabs of [place] today, which appears to be part of a longstanding and comprehensive plan with Dr. Aparicio. Prescription Monitoring Program Report As I am helping to treat this patient's clinically significant pain and considering medication options as part of a broader management scheme, I personally reviewed the patient's up-to-date GUIDANCE COUNSELOR report for [place], as well as any other pertinent, available states. This did reveal consistency with our ongoing plan. I did not appreciate any concerning behavior or suspicious patterns in the patient's prescription history. I used this information while constructing a tailored treatment plan, considering risks and benefits of treatment, non-treatment and alternative treatment regarding opioid pain medic ations and other controlled substances. Johnathan Perez MD 06/09/2018, 9:21 AM Leyla Mendez RN - 06/09/2018 8:06 AM CDT Images from the original note were not included. 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
--- OUTSIDE RECORDS SUMMARY | 2022-08-03 21:31 | XMS_ITS | Encounter Summary ---
:1975 Author Organization [facility] Address [address], [place] [address] Care Team Providers Name Role Phone Needs Pcp, Assignment Primary Care Provider Reason for Visit Reason Comments Post Visit Follow Up Phone Call Encounter Details Date Type Department Care Team Description 05/01/2018 Telephone [facility] Leyla Mendez RN Post Visit Follow Up [facility] [facility] [employer] Phone Call [place], [place] [address] Social History Tobacco Use Types [...] on filedocumented in this encounter Care Teams Radial Saw Operator Relationship Specialty Start Date End Date Needs Pcp, Assignment PCP - General 04/24/14 [place] [address] documented as of this encounter
--- OUTSIDE RECORDS SUMMARY | 2022-08-03 21:31 | XMS_ITS | Encounter Summary ---
:1975 Author Organization [facility] Address [address] [address] Care Team Providers Name Role Phone Needs Pcp, Assignment Primary Care Provider Reason for Visit Reason Comments Refill Encounter Details Date Type Department Care Team Description 10/09/2018 Refill [facility] Dakota Aparicio MD Refill [address] [place] [address] [phone] (Wo rk) Social History Tobacco Use Types [...] encounter Nursing Notes Lu Campos RN - 10/10/2018 8:36 AM CST Left message for patient to return call to clarify if patient is taking both tizanidine and cyclobenzaprine and if refills are needed. 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
--- OUTSIDE RECORDS SUMMARY | 2022-08-03 21:31 | XMS_ITS | Encounter Summary ---
:1975 Author Organization [facility] Address [address] [place] [address] Care Team Providers Name Role Phone Needs Pcp, Assignment Primary Care Provider Reason for Visit Reason Onset Date Comments ERRONEOUS ENTRY 12/13/2018 Encounter Details Date Type Department Care Team Description 12/13/2018 Refill [facility] Lu Campos RN ERRONEOUS ENTRY [address] [place], [place] [address] Social History Tobacco Use Types [...] on filedocumented in this encounter Care Teams Machine Container Washer Relationship Specialty Start Date End Date Needs Pcp, Assignment PCP - General 04/24/14 [place] [address] documented as of this encounter
--- OUTSIDE RECORDS SUMMARY | 2022-08-03 21:31 | XMS_ITS | Encounter Summary ---
:1975 Author Organization [facility] Address [address] [place] [address] Care Team Providers Name Role Phone Needs Pcp, Assignment Primary Care Provider Reason for Visit Reason Comments Refill Encounter Details Date Type Department Care Team Description 04/15/2018 Notes/[facility]ders [facility] [address] [place], Migrai ne without aura Neurology MD Mario and without status [address] [facility], not [address] intractable (Primary [place], [place] Dx ) [phone] (Wo rk) Social History Tobacco Use Types [...] aura and without status migrainosus, not intractable - Primary Migraine without aura, without mention o f intractable migraine without mention of status migrainosus documented in this encounter Care Teams Forest Landscape Ecology Professor Relationship Specialty Start Date End Date Needs Pcp, Assignment PCP - General 04/24/14 [place] [address] documented as of this encounter
--- OUTSIDE RECORDS SUMMARY | 2022-08-03 21:31 | XMS_ITS | Encounter Summary ---
:1975 Author Organization [facility] Address [address], [place] [address] Care Team Providers Name Role Phone Needs Pcp, Assignment Primary Care Provider Reason for Visit Reason Onset Date Comments Refill 04/21/2018 Encounter Details Date Type Department Care Team Description 04/21/2018 Refill [facility] Kaylah Morgan RN Refill [address] [place], [place] [address] Social History Tobacco Use Types [...] encounter Nursing Notes Kaylah Morgan RN - 04/21/2018 2:01 PM CDT Images from the original note were not included. Pt called requesting refill on [place]. Last note says she can have 1/2 tab daily if needed and she needs a office visit for any refills. 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
--- OUTSIDE RECORDS SUMMARY | 2022-08-03 21:31 | XMS_ITS | Encounter Summary ---
:1975 Author Organization [facility] Address [address], [place] [address] Care Team Providers Name Role Phone Needs Pcp, Assignment Primary Care Provider Reason for Visit Reason Comments Refill Encounter Details Date Type Department Care Team Description 05/03/2018 Refill [facility] Dakota Aparicio MD Refill [address] [address] [address] [place] [address] [phone] (Wo rk) Social History Tobacco Use Types [...] myelopathy documented in this encounter Care Teams Night Order Selector Relationship Specialty Start Date End Date Needs Pcp, Assignment PCP - General 04/24/14 [facility] [place] [address] documented as of this encounter
--- OUTSIDE RECORDS SUMMARY | 2022-08-03 21:31 | XMS_ITS | Encounter Summary ---
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) Dakota Aparicio MD Procedures Inj Midazolam Hydrochloride [address] [place] [address] 17 Referral ID Status Reason Start Date Expiration Date Visits Requ ested Visits Authorized [id number] Closed 04/28/2018 07/28/2019 1 1 (Routine) - Closed Specialty Diagnoses / Procedures Referred By Contact Refer red To Contact Diagnoses 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) Dakota Aparicio MD Procedures Fentanyl Citrate Injection [address] [place] [address] 17 Referral ID Status Reason Start Date Expiration Date Visits Requ ested Visits Authorized [id number] Closed 04/28/2018 07/28/2019 1 1 Reason for Visit Reason Comments Procedure Procedure/Equipment (Routine) - Incomplete Specialty Diagnoses / Procedures Referred By Contact Refer red To Contact Diagnoses 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) Dakota Aparicio MD Procedures FL C Arm 40 Pain Management [address] [place] [address] 17 Referral ID Status Reason Start Date Expiration Date Visits V isits Requested Authorized [id number] Incomplete 04/04/2018 07/04/2019 1 1 Encounter Details Date Type Department Care Team Description 04/28/2018 Procedure Visit [facility] Dakota Aparicio MD [address] [place] [id number] Procedure [address] [place] [address] Social History Tobacco Use Types Packs/Day Years [...] Sign Reading Time Taken Comments Blood Pressure 109/82 04/28/2018 10:57 AM CDT Pulse 65 04/28/2018 10:57 AM CDT Temperature 36.4 ??C (97.5 ??F) 04/28/2018 9:04 AM CDT Respiratory Rate 16 04/28/2018 10:57 AM CDT Oxygen Saturation 96% 04/28/2018 10:57 AM CDT Inhaled Oxygen Concentration - - Weight 67.6 kg (149 lb) 04/28/2018 9:04 AM CDT Height 180.3 cm (5' 11) 04/28/2018 9:04 AM CDT Body Mass Index 20.78 04/28/2018 9:04 AM CDT documented in this encounter Patient Instructions Patient InstructionsLlia Garcia RN - 04/28/2018 8:50 AM CDT FOLLOW UP PLAN: You will follow up in the [facility] as discussed: call [phone] to arrange an appointment if you do not already have one. Radiofrequency Ablation Post-Procedure Instructions: ?? There will likely be a few days of INCREASED pain as you recover from the ablation procedure. This is normal and may signify a successful procedure. ?? You likely received some sedation medications with the procedure - these can take anywhere from 2-12 hours to wear off ?? Rest today, you may resume your normal activities tomorrow (Physical Therapy & patient care can also be resumed next day). ?? Refrain from driving until tomorrow (Local anesthetic near the spine has the potential to make you weak or slow your reaction time) ?? Apply ice to site (20 minutes on/ 20 minutes off) for the next 48 hours if you experience any soreness or pain. ?? No heat to site for next 48 hours (car seat warmers, heating pads, electric blankets, etc) ?? No tub baths, pools, hot tubs or lakes for 2 days. You may shower. ?? Resume your regular diet and medications ?? One or more band-aids have been applied to the injection site(s). Please leave on today; you may remove them in the morning. If they fall off, no need to replace. ?? If you experience shortness of breath, pain when breathing, or severe swelling, perineal numbness, loss of bowel or bladder control, or progressive extremity weakness that does not resolve in 6 hours notify the doctor. If it is after normal clinic hours (8a-4p), go to the nearest emergency room for evaluation. ?? You may experience the following symptoms which are NORMAL ?? up to 6 hours after your injection: ?? Warmth ?? Tingling ?? Heaviness ?? Numbness If the symptoms last more than 12 hours, call the doctor HOME INSTRUCTIONS FOLLOWING SEDATION: The medication you received today may cause dizziness, poor motor coordination, and/or prolonged drowsiness. We recommend the followin. Rest and light activity, as tolerated, for the remainder of the day. 2. Do NOT drink any alcoholic beverages for 24 hours[address] NOT [address] or operate equipment that requires attention and concentration for the remainder of the day. 4. You may resume your normal diet when you feel like eating again. 5. If you become nauseated, drink clear liquids until you are feeling better. 6. Do not make important decisions or sign legal documents for the remainder of the day. 7. A responsible adult MUST accompany you home. For questions about sedation, recovery, side effects or other non-urgent concerns, call the [facility] Pain [facility] Nurse Line from 8am-4pm at [phone] Call 911 or go to the nearest Emergency Department if you experience: Fever Chest pain Progressive extremity weakness Difficult maintaining consciousness Loss of bowel or bladder control Shortness of breath Any other medical emergency Dr. Dakota Aparicoi MD Interventional Pain Physician and Anesthesiologist Please contact the Pain Nurse ([phone]) for all medical/procedural questions regarding your care at the [facility] Pain [facility] Please contact our Pattern Perforating Machine Operator ([phone]) for all administrative/scheduling questions related to the [facility] Medication Requests: Prescriptions requiring refills must be requested from the prescribing physician. If Dr. Aparicio prescribed your medication, call the number above. If any other physician prescribed your medication, please contact his or her office to discuss. documented in this encounter Progress Notes Juan Alberto Bermudez RN - 04/28/2018 8:50 AM CDT Patient here for cervical RFA procedure. Patient rates pain in left neck and shoulder, 7/10 at rest,7/10 with activity. Verified NPO status. Pre-op teaching completed, patient verbalizes understanding. Confirmed pt has truck driver salesperson home. Consent per MD. Dakota Aparicio MD - 04/28/2018 8:50 AM CDT Sedation Plan Planned Procedure: left TON RFA Physical Exam: Vital Signs: BP 122/86 Pulse 74 Temp 36.4 ??C (97.5 ??F) Resp 16 Ht 1.803 m (5' 11) Wt 67.6 kg (149 lb) BMI 20.78 kg/m2 Estimated body mass index is 20.78 kg/(m^2) as calculated from the following: Height as of this encounter: 1.803 m (5' 11). Weight as of this encounter: 67.6 kg (149 lb). History and Physical Completed: yes Lung exam within normal limits: yes Heart exam within normal limits: yes Prior Anesthesia Reaction: no Mouth Opening Normal: yes C-Spine (flex-Ext) Normal: yes Chin to Neck Distance Normal: yes Mallampati Class: class I ASA Status: ASA 1 - Normal healthy patient NPO yes Indications for Procedure: The procedure was described in detail to the patient. The risks benefits,and alternatives were thoroughly discussed and the patient wished to proceed with the recommended procedure. Vivek Echeverria has severe anxiety about procedures, making conscious sedation medically necessary in order for her to be able to lie still to perform procedure safely. Medical history pertinent to conscious sedation was obtained, pulmonary and cardiac examination performed, findings reviewedelectronic medical record. Patient found to be appropriate candidate for conscious sedation. Informed consent was obtained and is documented in the chart. Kaylah Morgan RN - 04/28/2018 8:50 AM CDT Sedation time [id number] Lila Garcia RN - 04/28/2018 8:50 AM CDT Patient tolerated procedure well, vital signs stable. Post-procedure pain level 3/10 at rest, 5/10 with activity. Discharge instructions given (written & verbal review), patient verbalized understanding. Patient discharged to home at 1101 via ambulatory with truck driver salesperson. documented in this encounter Procedure Notes Dakota Aparicio MD - 04/28/2018 8:50 AM CDT Procedure: Radiofrequency Ablation with Fluoroscopy on the Left Side at Levels C TON - Posterior Approach Note: The cervical medial branch indicated above corresponds to the lateral mass of the vertebral body at the same level. INDICATION: 1. Cervical facet joints arthropathy. Chronic cervical facet joint mediated neck pain. 2. Conscious sedation for anxiety and pain control. Needle Type: 20 gauge 10cm with 10mm sheryl RF probe Sedation: 2 mg of IV versed and 50mcg of fentanyl IV Local Anesthetic: 3 ml of 1% lidocaine injected at each site IV Fluids: 150 ml NS Injected Solution Prior to Ablation: 2% lidocaine PF injected at each site -- 1 ml of this solution injected at each nerve Additional Medications Administered: none Estimated Blood Loss -< 2ml Drains: None Specimens Removed: None Urine Output - Not Measured Complications: None Outcome: Good VAS with extension before RF: 7/10 VAS with extension 10 minutes after RF: 3/10 Informed Consent: The patient's condition and proposed procedures, risks, and alternatives were discussed with the patient or responsible alliance party. Possible risks and complications associated with the procedure and conscious sedation reviewed, including but not limited to infection, bleeding, injury to nerves, muscle, bone or skin, paralysis, worse pain, allergic reaction, or side effects of medications used. The patient's / responsible alliance party's questions were answered. The patient / responsible alliance party appeared to understand and chose to proceed. Informed consent was obtained. Prior to beginning the procedure, the internal test mode function of the radiofrequency unit was checked to make sure the machine was functioning correctly. The sizing collar of the RF electrode was checked to assure that the electrode fitted correctly within the disposable Alex- coated radiofrequency cannula. Procedural Pause: A procedural pause verifying correct patient, medical record number, allergies, and surgical site was performed immediately prior to beginning the procedure. The patient was taken back to the fluoroscopy suite and placed in a prone supported by pillows to maintain positional alignment. The skin overlying the injection site was prepped and draped in an aseptic fashion. The target injection site (see above) was identified with fluoroscopy. An AP image of the cervical spine showed the classic scalloped lateral margin with the convexities of this margin representing the facet (zygapophyseal) joints and the concavities representing the waists of the articularpillars. Some caudal angulation was used so that the associated transverse process could be distinguished. The target locations at the waists of the articular pillars of the above noted vertebral levels and side were identified.The skin was anesthetized with a 1.5 inch 25 gauge needle at each of the levels noted above. The above needles inserted and advanced under intermittent AP view fluoroscopy till gentle bony contact made with lateral margins of the waist of the pillars. The needles were then gently advanced along the lateral wall of the respective facet pillar with intermittent lateral view fluoroscopy, till the needle crossed the C2-3 lateral joint in line, without impingement of the neural foramen. AP, contralateral oblique, and lateral imaging was obtained to verify placement. A total of 2 needles were placed in this fashion to provide adequate coverage of the third occipital nerve. Once all the cannulae were in position, an impedance of 277, 280 ohms at 50 Hz was noted for the above indicated medial branch nerves, respectively from cephalad to caudad. Absence of upper extremity motor fasciculation was noted at 2.0 volts at 2 Hz stimulation for the above noted medial branch nerves, respectively from cephalad to caudad. The needles had the characteristic V shape of the venom probe. Following confirmatory stimulation, negative aspiration for heme or CSF was noted at each level.Next, the above noted solution was injected at each nerve prior to the ablation. After a 30 second de lay, lesions were performed at a temperature of 80??C for a total of 90 seconds. After the needle tips had cooled to less than 45??C they were sequentially removed. At the end of the procedure it was noted that the patient could purposefully move all four extremities. Sterile bandages were placed over the puncture sites. The heart rate, pulse oximetry, and blood pressure were continuously monitored throughout the procedure. There were no apparent complications. The heart rate, pulse oximetry, and blood pressure were continuously monitored throughout the procedure. The patient tolerated the procedure well and was carefully escorted to the recovery room in stable condition. After meeting discharge criteria, the patientwas discharged home. The patient was advised to relax and avoid any heavy lifting or excessive bending for the rest of the day. She was advised that she may return to her usual activities tomorrow if she is otherwise feeling well. The patient was advised not to bathe or soak in water for 24 hours but that showering would be acceptable. The patient was instructed that if she experienced fever or chills, new weakness, new sensory changes, any changes in bowel or bladder habits, worsening back pain, new headache, neck stiffness, or other new symptoms, that she should contact the pain clinic immediately or seek immediate medication attention if unable to reach the pain clinic. RECOMMENDATIONS: 1. Instructed the patient can take up to 4 weeks to notice significant pain reduction. Some patientsmay have some discomfort the next day or several days or weeks during the healing process. 2. We will plan to have the patient follow up as needed in our clinic for evaluation of today's procedure. 3. Patient was advised not to drive for the remainder of the day. 4. She did ask for Flexeril after the procedure today. This has been helping her sleep at night. I did refill for 30 tabs. Risks and side effects were discussed. documented in this encounter Plan of Treatment Not on filedocumented as of this encounter Procedures Procedure Name Priority Date/Time Associated Diagnosis Comme nts FL C ARM 40 PAIN Routine 04/28/2018 10:11 Spondylosis of Resul ts for this MANAGEMENT AM CDT cervical region procedure ar e in without myelopathy or the re sults radiculopathy section. documented in this encounter Results FL C Arm 40 Pain Management (04/28/2018 10:11 AM CDT) Anatomical Region Laterality Modality Radiographic Imaging Specimen (Source) Anatomical Location Collection Method / Collectio n Time Received Time / Laterality Volume Narrative 04/28/2018 11:08 AM CDT Images obtained during surgical procedure. Dakota Aparicio MD RAD FL documented in this encounter Visit Diagnoses Diagnosis Spondylosis of cervical region without m yelopathy or radiculopathy (HRC) Cervical spondylosis without myelopathy documented in this encounter Administered Medications Active Administered Medications - up to 3 most recent administrations Medication Order MAR Action Action Date Dose Rate Site fentaNYL (SUBLIMAZE) injection Given 04/28/2018 10:01 AM CDT 50 mcg 25-100 mcg 25-100 mcg, Intravenous, PRN, Pain, Sedation, Starting on Tue04/28/18 at 0931, Until Discontinued midazolam (VERSED) injection 1-2 mg Given 04/28/2018 9:47 AM CDT 2 mg 1-2 mg, Intravenous, PRN, Sedation, Procedure, Starting on Tue04/28/18 at 0931, Until Discontinued Inactive Administered Medications - up to 3 most recent administrations Medication Order MAR Action Action Date Dose Rate Site NaCl 0.9% infusion Given 04/28/2018 9:43 AM CDT 500 mL 50 mL/hr 500 mL, Intravenous, at 50 mL/hr, ONCE PRN, sedation, Starting on Tue04/28/18 at 0931, For 1 dose documented in this encounter Care Teams Knitter Machine Relationship Specialty Start Date End Date Needs Pcp, Assignment PCP - General 04/24/14 [place] [address] documented as of this encounter
--- OUTSIDE RECORDS SUMMARY | 2022-08-03 21:31 | XMS_ITS | Encounter Summary ---
:1975 Author Organization [facility] Address [address] [address] Care Team Providers Name Role Phone Needs Pcp, Assignment Primary Care Provider Reason for Visit Reason Comments QUESTIONS, GENERAL Encounter Details Date Type Department Care Team Description 12/21/2018 Telephone [facility] Lu Campos, QUESTIONS, GENERAL [address] [facility] [address] [place], [place] [address] Social History Tobacco Use [...] encounter Nursing Notes Lu Campos RN - 12/22/2018 10:42 AM CST Patient reporting she had run out of naltrexone and has now received in mail. Is on day 4 of naltrexone. No break in headache. Patient advised Dr. Aparicio suggests evaluation at Urgent Care. Y CANDY MAKER Dakota Aparicio MD - 12/22/2018 10:33 AM CST I would recommend that she goes to urgent care for additional evaluation and treatment. Dakota Aparicio MD 12/22/2018, 10:35 AM Y CANDY MAKER Lu Campos RN - 12/21/2018 2:32 PM CST Patient phones asking if Dr. Aparicio has any suggestions regarding c/o head pain since Tuesday. Patient reports she took norco, which triggered migraine. Imitrex did not help and patient is unable to break headache. Please advise. Y CANDY MAKER documented in this encounter Plan of Treatment Not on filedocumented as of this encounter Visit Diagnoses Not on filedocumented in this encounter Care Teams Oil Recovery Unit Operator Relationship Specialty Start Date End Date Needs Pcp, Assignment PCP - General 04/24/14 [place] [address] documented as of this encounter
--- OUTSIDE RECORDS SUMMARY | 2022-08-03 21:31 | XMS_ITS | Encounter Summary ---
:1975 Author Organization [employer] Address [address] [place] [address] Care Team Providers Name Role Phone Needs Pcp, Assignment Primary Care Provider Reason for Visit Reason Comments Follow-up Encounter Details Date Type Department Care Team Description 09/12/2018 Office Visit [facility] Dakota Aparicio MD [address] [place] [address] Spondylosis of cervical region without m yelopathy or radiculopathy (Primary Dx); [address], [facility] Rad Rn Occipital neuralgia of left side; [place], [place] Occipital he adache [id number] Social History Tobacco Use Types Packs/Day Years [...] Sign Reading Time Taken Comments Blood Pressure 121/78 09/12/2018 10:27 AM CUSTODIAL WORKER Pulse 74 09/12/2018 10:27 AM CUSTODIAL WORKER Temperature - - Respiratory Rate 16 09/12/2018 10:27 AM CUSTODIAL WORKER Oxygen Saturation - - Inhaled Oxygen Concentration - - Weight - - Height - - Body Mass Index - - documented in this encounter Patient Instructions Patient InstructionsDakota Aparicio MD - 09/12/2018 10:10 AM CST 1. Follow-up at [place] - regarding possible botox injections, b-blockers 2. Future considerations: retrial of cymbalta 3. Try a routine of daily aerobic exercises 4. Continue treatment for your thyroid ODIAL WORKER documented in this encounter Progress Notes Cristina Gallegos CMA - 09/12/2018 10:10 AM CST Images from the original note were not included. Medications: Topamax - 50mg QHS Excedrin migraine - has been taking this every morning. Elavil - hasn't been taking this - put on weight with this. Tizanidine - doesn't like this - gives me a head buzz. Doesn't really work. Flexeril - PRN rarely. Cymbalta RIGGER CHIEF for review ODIAL WORKER Cristina Gallegos CMA - 09/12/2018 10:10 AM CST Current med's Naltrexone Imitrex Zofran Topamax Tizanidine Not taking Flexeril Cymbalta ODIAL WORKER Dakota Aparicio MD - 09/12/2018 10:10 AM CST Interventional Pain Follow-up Appointment Subjective: Vivek Echeverria is a 43 y.o. year-old female who is here today for follow-up. Similar to before, she had a period of significant relief. She reported 7 weeks of 100% relief - she Attributes this to starting the Naltrexone. About 2 weeks ago, the headaches started up again. The pain is in the left occipital region. The pain radiates to both temples, and forehead. She also gets nausea with her migraines. She also got a second opinion at [facility] - saw Dr. Bunch from [place] on Aug 01. At that time, shedidn't have any pain. She was put back on topamax. She doesn't want to return. Medications: Topamax - 50mg QHS Excedrin migraine - has been taking this every morning. Elavil 50-100mg- hasn't been taking this - put on weight with this. Tizanidine - doesn't like this - gives me a head buzz. Doesn't really work. Flexeril - PRN rarely. Cymbalta - stopped this, or at least doesn't remember if she has taken this. [place] - hasn't refilled this yet. ROS: No radiation down her hands No fevers No chills No weakness or numbness No neurological deficits No weakness slurred speech or confusion ? Previous Medications: Gabapentin (didn't like the cognitive side effects), Cymbalta, mobic, Tylenol, aspirin, Celebrex, Voltaren, Aleve, ibuprofen, Robaxin, Flexeril, tizanidine, tramadol (didn't like how it made her feels)Lyrica, elavil. Procedures: Cervical facet joint injection at C2/3 01/12/17. Had relief during the local anesthetic phase (-), but no relief during the steroid phase. [...] tablet Take 1/2 tab daily as needed (Patient not taking: Reported on 09/12/2018) 15 Tablet 0 ??? HYDROcodone-acetaminophen (NORCO) 5-325 [...] month. 12 Tab 1 ??? tiZANidine (ZANAFLEX) 4 MG capsule TAKE 1 CAPSULE BY MOUTH EVERY 6 TO 8 HOURS NEEDED 20 Capsule 0 ??? topiramate (TOPAMAX) 25 MG tablet TAKE 3 TABLETS BY MOUTH DAILY AT BEDTIME 90 Tab 0 ??? VIENVA 0.1-20 MG-MCG tablet 06/29/2018: Received from: External Pharmacy ??? tiZANidine (ZANAFLEX) 2 MG tablet Take 1-2 Tabs by mouth two times daily as needed (pain). 60 Tab 0 Facility-Administered Medications Prior to Visit Medication Dose Route Frequency Provider Last Rate Last Dose ??? fentaNYL (SUBLIMAZE) injection 25-100 mcg 25-100 mcg Intravenous PRN Dakota Aparicio MD 50 mcg at 04/28/18 1001 ??? midazolam (VERSED) injection 1-2 mg 1-2 mg Intravenous PRN Dakota Aparicio MD 2 mg at 04/28/18 0947 Objective BP 121/78 Pulse 74 Resp 16 Estimated body mass index is 20.78 kg/m?? as calculated from the following: Height as of 04/28/18: 5' 11 (1.803 m). Weight as of 04/28/18: 67.6 kg (149 lb). Appearance: Grooming: appropriate Level of Distress: NAD Assistive Devices: none Physical Exam: General: No apparent distress HEENT: Pupils equal and round, nasopharynx clear Resp: Non-labored breathing Psych: Oriented; appropriate affect and insight, non-pressured speech Neuromuscular Exam: CN II-XII grossly intact TTP in the left occipital region Assessment: Vivek is a 43 y.o. year-old female with: ICD-10-CM 1. 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 Occipital neuralgia of left side M54.81 3. Occipital headache R51 Occipital neuralgia Axial neck pain Overlapping daily headaches Hypothyroid No changes with medications at today's visit Plan: 1. Follow-up at [place] - regarding possible botox injections, b-blockers 2. Future considerations: retrial of cymbalta 3. Try a routine of daily aerobic exercises 4. Continue treatment for your thyroid Dakota Aparicio MD 09/12/2018, ODIAL WORKER documented in this encounter Plan of Treatment Not on filedocumented as of this encounter Visit Diagnoses Diagnosis Spondylosis of cervical region without m yelopathy or radiculopathy (HRC) - Primary Cervical spondylosis without myelopathy Occipital neuralgia of left side Occipital headache Headache documented in this encounter Care Teams Wind Farm Operations Manager Relationship Specialty Start Date End Date Needs Pcp, Assignment PCP - General 04/24/14 [place] [address] documented as of this encounter
--- OUTSIDE RECORDS SUMMARY | 2022-08-03 21:31 | XMS_ITS | Encounter Summary ---
:1975 Author Organization Count includes the [facility] Address [address], [place] [address] Care Team Providers Name Role Phone Needs Pcp, Assignment Primary Care Provider Reason for Visit Reason Comments Pre-procedure Call Encounter Details Date Type Department Care Team Description 04/25/2018 Telephone [facility] Erin Askew RN Pre-procedure Call [address] [place], [place] [address] Social History Tobacco Use Types [...] on filedocumented in this encounter Care Teams Tail Dogger Relationship Specialty Start Date End Date Needs Pcp, Assignment PCP - General 04/24/14 [place], [place] [id number] documented as of this encounter
--- OUTSIDE RECORDS SUMMARY | 2022-08-03 21:32 | XMS_ITS | Encounter Summary ---
:1975 Author Organization [facility] Address [address], [place] [address] Care Team Providers Name Role Phone Needs Pcp, Assignment Primary Care Provider Reason for Referral (Routine) - Closed Specialty Diagnoses / Procedures Referred By Contact Refer red To Contact Diagnoses Occipital neuralgia of left side Dakota Aparicio MD Procedures Dexamethasone [address] [place] [address] [phone] Referral ID Status Reason Start Date Expiration Date Visits Requ ested Visits Authorized [id number] Closed 10/11/2017 01/10/2019 1 1 LE AND HEEL STIFFENER Reason for Visit Reason Comments Follow-up ONB Encounter Details Date Type Department Care Team Description 10/11/2017 Procedure Visit [facility] Dakota Aparicio, Follow-up (ONB) [address] [place], [place] [address] [place] [address] [place] [address] (Wo rk) Social History Tobacco Use Types [...] Sign Reading Time Taken Comments Blood Pressure 108/81 10/11/2017 1:14 PM INSOLE AND HEEL STIFFENER Pulse 81 10/11/2017 1:14 PM INSOLE AND HEEL STIFFENER Temperature - - Respiratory Rate 18 10/11/2017 1:14 PM INSOLE AND HEEL STIFFENER Oxygen Saturation - - Inhaled Oxygen Concentration - - Weight - - Height - - Body Mass Index - - documented in this encounter Progress Notes Erin Askew RN - 10/11/2017 1:20 PM CST Patient here for ONB procedure. Patient rates headaches, 7/10 at rest, 7/10 with activity. Pre-op teaching completed, patient verbalizes understanding. 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 Consent per MD. LE AND HEEL STIFFENER documented in this encounter Procedure Notes Dakota Aparicio MD - 10/11/2017 1:20 PM CST PROCEDURE: Left Greater Occipital Nerve Block Postprocedural Diagnosis: Occipital neuralgia Needle Type: -1-1/2 inch 25-gauge Solution Injected (at each site - if bilateral): 5 mg dexamethasone + bupivacaine 0.25 percent 2.5 ml Estimated Blood Loss - <2 ml Drains: None Specimens Removed: None Urine Output - Not Measured Complications: None Outcome: Good VAS Before Injection: 7/10 VAS After Injection: 0/10 Informed Consent: The patient's condition and proposed procedures, risks, and alternatives were discussed with the patient or responsible constitution party. Risks include side effects from steroids, infection, skin breakdown from steroids, injury to the nerve, or increased pain. The patient's/responsible constitution party's questions were answered. The patient/responsible constitution party appeared to understand and chose to proceed. Informed consent was obtained. The patient was placed in a seated position flexing the neck forward over a table and pillow. Next, the patient???s hair and scalp were thoroughly cleansed using an aseptic technique. The external occipital protuberance and the superior nuchal line and occipital artery on the side noted above were identified by palpation. The skin entry point was then identified. Procedural Pause: A procedural pause verifying correct patient, medical record number, allergies, and surgical site was performed immediately prior to beginning the procedure. The above noted procedure needle was inserted medial to the occipital artery, or approximately 2.5-3cm lateral to the external occipital protuberance. The needle was then directed anteriorly and slightly superiorly and advanced approximately 1 cm. Paresthesias were not noted along the ipsilateral temporal-occipital distribution during needle insertion. After negative aspiration for heme, the above noted injectate was injected in a fanned-out distribution. The needle was then removed. The needle(s) was then removed. A sterile gauze was placed with pressure over the injection site for until all bleeding and oozing ceased. The above noted procedure was not repeated on the OPPOSITE side. The patient tolerated the procedure well. After meeting discharge criteria, the patient was discharged home. DISCUSSION: An greater occipital nerve block was performed today. The purpose was to provide diagnostic information and improve the patient???s function and decrease pain. We have reminded the patient that these injections must be done in conjunction with a monitored physical therapy program. Without such a program, results from this injection may be suboptimal. She was advised that she may return to her usual activities tomorrow if she is otherwise feeling well. The patient was advised not to bathe or soak in water for 24 hours but that showering would be acceptable. The patient was instructed that if she experienced fever or chills, new weakness, new sensory changes, any changes in bowel or bladder habits, worsening pain, or other new symptoms, that she should contact the pain clinic or seek urgent evaluation. PLAN: 1. We will plan to have the patient follow up in clinic. LE AND HEEL STIFFENER documented in this encounter Plan of Treatment Not on filedocumented as of this encounter Visit Diagnoses Diagnosis Occipital neuralgia of left side - Prima ry documented in this encounter Care Teams Guard Dance Hall Relationship Specialty Start Date End Date Needs Pcp, Assignment PCP - General 04/24/14 [place] [address] documented as of this encounter
--- OUTSIDE RECORDS SUMMARY | 2022-08-03 21:32 | XMS_ITS | Encounter Summary ---
:1975 Author Organization [email or web address] Address [address] [place] [id number] Care Team Providers Name Role Phone Needs Pcp, Assignment Primary Care Provider Reason for Visit Reason Comments CONSULT Consult/Transfer Care (Routine) - Closed Specialty Diagnoses / Procedures Referred By Contact Refer red To Contact Diagnoses Occipital neuralgia of left side 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) Dakota Aparicio MD [address] [place] [address] [phone] Referral ID Status Reason Start Date Expiration Date Visits Requ ested Visits Authorized [id number] Closed 11/01/2017 01/31/2019 1 1 Encounter Details Date Type Department Care Team Description 02/21/2018 Initial Consult Specialty Center Laurel Garcia MD Migraine without aura and without status migrainosus, not intractable (Primary Dx); [address] [place] Occipital neuralgia, unspeci fied laterality; [address] [facility] [place] [id number] Social History Tobacco Use Types Packs/Day Years [...] as of this encounter Patient Instructions Patient InstructionsMaLaurel strong MD - 02/21/2018 8:15 AM CDT Neck pain, occipital nerve irritation, and head pain -- Continue Topamax - Increase to 25 mg in the morning and 50 mg at bedtime x 2 weeks, then - Increase to 50 mg 2 x day -- Continue Imitrex 100 mg at the onset of severe head pain; can take a second dosage after an hour if headache continues - Limit to 9 x per month -- Trial of Aleve 440 mg at onset of moderate or severe head pain (can take in combination with the Imitrex) - Try to limit to 9 x per month -- Continue zofran as needed for nausea and head pain -- Will avoid amitriptyline -- Recommend eating a regular diet and regular exercise -- Will get you scheduled with our integrated headache clinic which includes PT and OT -- Continue to work with Dr. Aparicio at the pain clinic -- Again, images are typically unremarkable with occipital nerve irritation and migraine headaches -does not mean your pain isn't real! documented in this encounter Progress Notes Laurel Garcia MD - 02/21/2018 8:15 AM CDT Neurology Consult 02/21/18 Dakota Aparicio MD [address] [place], [place] [id number] RE: Vivek Echeverria MR#: [id number] Dear Dr. Dakota Aparicio: Thank you for referring Vivek Echeverria for a consultation regarding neck pain, occipital neuralgia, and migraine headaches. History of Present Illness: Ms. Echeverria is a 42 year old woman with history of left-sided neck pain, occipital neuralgia, and migraine headaches. Her symptoms start with left-sided neck/occipital pain which feels like someone is drilling into theskull. The pain typically progresses to involve the entire head with associated photophobia, nausea,and emesis. Head pain occurs daily. 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 She is currently taking Imitrex 200 mg daily. Recently discontinued the Topamax and Amitriptyline after her MR brain and cervical spine were unrevealing for a source of her pain, as she thought it meant everything was in her head. After speaking with Dr. Aparicio, she restarted the Topamax but is concerned about mental fogginess. She did not restart the amitriptyline secon ulisses to significant weight gait and questions of whether causing the mental fogginess, though this medication did seem to help the headaches. She ran out of her zofran prescipt She started having migraine headaches about 6 years ago; current neck pain and headaches have been present over the past 4-5 years though progressively worsening. She denies a family history of migraine headaches. Sleep is regular. Consumes ~ 1 caffeinated drink per morning. Staying hydrated. Not eating regularly - always has an evening meal, 75% of the time eats in the morning, and does have some small snacks throughout the day. She has been followed in the pain clinic. On 10/11/2017, an ONB on the left side was performed with transient relief of occipital pain for several hours that day. She is also working with a chiropractor which has not been helpful. Her overall pain symptomatology has been significantly interfering withher life, and she understandably feels depressed. Prior investigations: MRI brain 02/02/2018: 1. Prominence to the pituitary which may be at the upper limits of normal. The MRI of the brain appears otherwise unremarkable. 2. Minimal inflammatory changes within the mastoid air cells. Cervical MRI 02/02/2018: 1. No significant interval change when compared to 05/22/2015. 2. Degenerative changes and scoliosis which appears similar to the previous study. 3. Indeterminate thyroid nodules on the left with the largest measuring approximately 1.9 x 0.8 x 1.7 cm in size which appears similar to the previous study. Consider follow-up thyroid ultrasound. Past Medical History: Cervical degenerative disc disease Cervalgia Occipital neuralgia, left-sided Migraine headaches, as described above Past Surgical History: Past Surgical History: Procedure Laterality Date ??? HYSTERECTOMY ??? LIPOSUCTION Family History: Family History Problem Relation Age of Onset ??? Hypertension Father Social History: Social History Substance Use Topics ??? Smoking status: Never Smoker ??? Smokeless tobacco: Never Used ??? Alcohol use No Comment: rarely ?? Medical Allergies: No Known Allergies Current Medications: Outpatient Medications Prior to Visit Medication Sig ??? amitriptyline (ELAVIL) 25 MG tablet Take 1 Tab by mouth every evening. ??? diclofenac (VOLTAREN) 1 % gel Apply 1-2 grams to affected area 4 times a day for pain relief. ??? estrogens, esterified,-methyltestosterone (ESTRATESTH.S.) 0.625-1.25 MG tablet Take 1 Tab by mouth daily. ??? HYDROcodone-acetaminophen (NORCO) 5-325 MG tablet Take 1 Tab by mouth daily as needed for Pain. ??? medroxyPROGESTERone (PROVERA) 5 MG tablet Take 5 mg by mouth daily. ??? ondansetron (ZOFRAN-ODT) 4 MG disintegrating tablet Take 4 mg by mouth every 8 hours as needed for Nausea. ??? SUMAtriptan (IMITREX) 25 MG tablet Take 25 mg by mouth as needed for Migraine. ??? tiZANidine (ZANAFLEX) 2 MG tablet Take 1-2 Tabs by mouth two times daily as needed (pain). (Patient not taking: Reported on 11/01/2017) ??? topiramate (TOPAMAX) 25 MG tablet TAKE 3 TABLETS BY MOUTH DAILY AT BEDTIME No facility-administered medications prior to visit. Review of Systems: A complete review of systems was obtained and all systems were negative except for what was noted above. PHYSICAL EXAMINATION: Vital Signs: BP 139/97, HR 80, RR 14 General Appearance: NAD Skin: No rash or other skin lesions. Cardiovascular: Regular rate. Respiratory: No audible wheezing present. GI: Soft, NTND. Musculoskeletal: No scoliosis, lordosis, kyphosis, pes cavus, hammertoes. NEUROLOGICAL EXAM: Patient is alert, attentive, and oriented. Speech is coherent and fluent without dysarthria or aphasia. Comprehension and ability to follow commands were intact. Optic discs were sharp. Pupils were round and reacted to light and accommodation. Extraocular movements were full. There was no face, jaw, palate or tongue weakness or atrophy. Hearing was grossly intact. Shoulder shrug was normal. Motor exam revealed normal muscle bulk and tone. Strength intact throughout. Complex motor skills revealed normal coordination. [id number] and heel to wade were intact. Sensory exam revealed intact to pinprick throughout. Patient had a normal gait. She was able to walk on her toes andtandem without any difficulty. Deep tendon reflexes were 2 at the biceps, 1 at the brachioradialis, 2 at the knees, 2 at the ankles. Plantar responses were flexor bilaterally. ASSESSMENT: Ms. Echeverria is a 42 year old woman with history of left-sided neck pain, occipital neuralgia, and migraine headaches. Neurologic examination today is normal. Recent MRI brain was unrevealing (pituitary is normal, but at the upper limits of normal - not causing her symptoms). MR cervical spine revealed some degenerative changes which do not appear to be culprit (particularly no significantforaminal stenosis at C2, 3, or 4 which could be involved with an occipital neuralgia). RECOMMENDATIONS: -- Continue Topamax for migraine prophylaxis - Increase to 25 mg in the morning/50 mg at bedtime x 2 weeks, then increase to 50 mg BID -- Continue Imitrex 100 mg at the onset of severe head pain; can take a second dosage after an hour if headache continues - Limit to 9 x per month -- Trial of Aleve 440 mg at onset of moderate or severe head pain (can take in combination with the Imitrex) - Limit to 9 x per month -- Continue zofran as needed for nausea and head pain -- Will avoid amitriptyline secondary to weight gain (tearful about weight gain); likely Depakote would be another agent she would like to avoid for this reason -- Recommend eating a regular diet, regular exercise, good hydration -- Recommended she continue to work with Dr. Aparicio at the pain clinic -- We discussed that despite her images being unrevealing for pathology causing her symptoms, she isnot crazy, the pain is real, and many times the images are unrevealing with symptoms such as hers -- She will be a great candidate for our integrated headache program with PT/OT; will get her scheduled Sincerely, Laurel Garcia MD Neurology TT: 45 minutes spent interviewing patient, examination, formulating treatment plan; TC: 30 minutes spent coordinating care (including education and counseling as documented above). documented in this encounter Plan of Treatment Not on filedocumented as of this encounter Visit Diagnoses Diagnosis Migraine without aura and without status migrainosus, not intractable - Primary Migraine without aura, without mention o f intractable migraine without mention of status migrainosus Occipital neuralgia, unspecified lateral ity Cervicalgia documented in this encounter Care Teams Customer Training Specialist Relationship Specialty Start Date End Date Needs Pcp, Assignment PCP - General 04/24/14 [place] [address] documented as of this encounter
--- OUTSIDE RECORDS SUMMARY | 2022-08-03 21:32 | XMS_ITS | Encounter Summary ---
:1975 Author Organization [facility] Address [address], [place] [address] Care Team Providers Name Role Phone Needs Pcp, Assignment Primary Care Provider Reason for Visit Reason Comments Pre-procedure Call Encounter Details Date Type Department Care Team Description 03/13/2018 Telephone [facility] Lucy Albrecht, Pre-procedure Call [address] [place], [place] [address] Social History Tobacco Use Types [...] documented as of this encounter Nursing Notes Lucy Albrecht, RN - 03/13/2018 9:44 AM CDT Pre-procedure instructions called to pt Reviewed Medical & Surgical History & information below: Arrival Time:0810 Non sedation pt: Nothing 2 hours prior to procedure, Light meal ok prior to that. Sedation Pt: NPO solids 6 hours prior with Clear liquids up to 2 hours prior to procedure. Nothing for 2 hours prior. Encouraged pt to take prescription medications with a sip of water as usual in am. 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 Reviewed NSAID use with patient: (Cervical RANJEET, Stellate, LSB ONLY) Last Dose Blood thinners (RANJEET, RFA, Stellate, LSB only): no Currently on Antibiotics? no Flu Shot/Vaccines within 7 days? no Recent Steroid injection? no If Diabetic is patient under good control? Recent BS? n/a Reminder if female age 50 or less will need a UPT if no hysterectomy. Wear loose fitting, comfortable clothing, no valuables (jewelry, etc). Bring photo ID & medical cards. Patient verbalized understanding of all of the above & questions/concerns answered. documented in this encounter Plan of Treatment Not on filedocumented as of this encounter Visit Diagnoses Not on filedocumented in this encounter Care Teams Wireline Operator Relationship Specialty Start Date End Date Needs Pcp, Assignment PCP - General 04/24/14 [place] [address] documented as of this encounter
--- OUTSIDE RECORDS SUMMARY | 2022-08-03 21:32 | XMS_ITS | Encounter Summary ---
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) Dakota Palumbo MD Procedures FL C Arm 40 Pain Management [address] [place] [phone] Referral ID Status Reason Start Date Expiration Date Visits V isits Requested Authorized [id number] Incomplete 06/10/2017 09/09/2018 1 1 Reason for Visit Reason Comments Procedure Procedure/Equipment (Routine) - Incomplete Specialty Diagnoses / Procedures Referred By Contact Refer red To Contact Diagnoses 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 [place], [place] [address] Social History Tobacco Use Types [...] Sign Reading Time Taken Comments Blood Pressure 120/84 06/07/2017 11:07 AM CDT Pulse 71 06/07/2017 11:07 AM CDT Temperature 36.6 ??C (97.9 ??F) 06/07/2017 10:17 AM CDT Respiratory Rate 20 06/07/2017 11:07 AM CDT Oxygen Saturation 100% 06/07/2017 11:07 AM CDT Inhaled Oxygen Concentration - - Weight 74.8 kg (165 lb) 06/07/2017 10:17 AM CDT Height 180.3 cm (5' 11) 06/07/2017 10:17 AM CDT Body Mass Index 23.01 06/07/2017 10:17 AM CDT documented in this encounter Patient Instructions Patient Lila Johns RN - 06/07/2017 10:10 AM CDT FOLLOW UP PLAN: You will follow up in the [facility] as discussed: call [phone] to arrange an appointment if you do not already have one. Medial Branch Block Post-Procedure Instructions: BE SURE TO FILL OUT AND RETURN YOUR 'PAIN DIARY' - this is critical to determine the next steps in your plan ?? Keep your activity level consistent with your normal routine; do not spend the remainder of the day resting as this may interfere with the diagnostic results of today's procedure ?? Refrain from driving until tomorrow (Local anesthetic near the spine has the potential to make you weak or slow your reaction time) ?? Apply ice to site (20 minutes on/ 20 minutes off) for the next 48 hours if you experience any soreness or pain once Pain Diary is Complete. ?? No heat to site for next [...] fall off, no need to replace. ?? You may experience the following symptoms which are NORMAL ?? up to 6 hours after your injection: ?? Warmth ?? Tingling ?? Heaviness ?? Numbness If the symptoms last more than 12 hours, call the doctor Dr. Dakota Palumbo MD Interventional Pain Physician and Anesthesiologist Please contact the Pain Nurse ([phone]) for all medical/procedural questions regarding your care at the [facility] Please contact our Raiser Helper ([phone]) for all administrative/scheduling questions related to the [facility] Medication Requests: Prescriptions requiring refills must be requested from the prescribing physician. If Dr. Palumbo prescribed your medication, call the number above. If any other physician prescribed your medication, please contact his or her office to discuss. documented in this encounter Progress Notes Dakota Palumbo MD - 06/10/2017 4:59 PM CDT Addended by: DAKOTA PALUMBO on: 06/10/2017 04:59 PM Modules accepted: Orders Lucy Albrecht RN - 06/07/2017 10:10 AM CDT Patient here for Cervical MBB procedure. Patient rates pain in Left side of neck, 10/10 at rest, 10/10 with activity. Verified NPO status. Pre-op teaching completed, patient verbalizes understanding. Consent per MD.Discharge per mom.Explained pain diary. Lila Garcia RN - 06/07/2017 10:10 AM CDT Patient tolerated procedure well, vital signs stable. Post-procedure pain level 0/10 at rest, 0/10 with activity. Discharge instructions given (written & verbal review), patient verbalized understanding. 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 documented in this encounter Procedure Notes Dakota Palumbo MD - 06/07/2017 10:10 AM CDT Procedure: left, Cervical C-TON C34 Medial Branch Block with Fluoroscopy Note: The cervical medial branch indicated above corresponds to the lateral mass of the vertebral body at the same level. Postprocedural Diagnosis: Cervical facet arthopathy Needle Type: 1.5 inch 25 gauge Contrast Dye - Isovue M200 0.2ml at each level (from a 10ml vial) Diagnostic Local Anesthetic - 0.3 ml of 4% lidocaine injected at each target nerve Anesthesia - none IV Fluids - none Additional Medications Administered: none Estimated Blood Loss - <2 Drains: None Specimens Removed: None Urine Output - Not Measured Complications: None Outcome: Good VAS with extension before Injection: 10/10 VAS with extension 10 minutes after Injection: 0/10 Informed Consent: The patient's condition and proposed procedures, risks, and alternatives were discussed with the patient or responsible democrat. The patient's / responsible democrat's questions were answered. Risks include but not limited to infection, bleeding, nerve injury, increased pain, spinal cord injury, allergic reactions. Patient refused UPT test prior to the procedure. The patient / responsible democrat appeared to understand and chose to proceed. Informed consent was obtained. The patient was taken back to the fluoroscopy suite and placed in a lateral position supported by pillows to maintain positional alignment. The skin overlying the injection site was prepped and draped in an aseptic fashion. The target injection site (see above) was identified with fluoroscopy. Procedural Pause: A procedural pause verifying correct patient, medical record number, allergies, and surgical site was performed immediately prior to beginning the procedure. The skin and subcutaneous tissue overlying the target site of injection was anesthetized using 2 ml of 1% lidocaine MPF with a 25-gauge, 1?? -inch needle. The above noted needle type was advanced to each target under fluoroscopic guidance parallel to the beam of the fluoroscope utilizing a ???bullseye?? approach. Cervical Medial Branch Blocks An AP image of the cervical spine showed the classic scalloped lateral margin with the convexities of this margin representing the facet (zygapophyseal) joints and the concavities representing the waists of the articular pillars. Some cranial angulation was used so that the associated transverse process could be distinguished. A lateral view revealed the parallelogram of the lateral masses, the centroid of this articular pillar being the identified targets. With the fluoroscope oriented laterally, the needle(s) were directed medially to the midpoint of theparallelogram of the lateral mass at the levels indicated above. ( or to the C2-3 lateral joint in line in the case of the 3rd occipital nerve block). Final positioning on the centroid of the articularpillar was confirmed by rotating the fluoroscope to an off lateral position so that the uppermost articular pillar was distinguished from the opposite side. The needle could then be seen traveling withthe uppermost articular pillar as the two articular pillars on the fluoroscopic image. After negative aspiration for heme or CSF, the above noted contrast was injected and persisted at each site under fluoroscopy, demonstrating absence of vascular uptake. After negative aspiration for heme or CSF, the above noted solution was slowly injected at each site to avoid forcing the solution away from the target point(s). The needle(s) were then removed. A sterile bandage was placed over the injection site. The patient tolerated the procedure well. She was carefully escorted to the recovery room in stablecondition. After meeting discharge criteria, the patient was discharged home. DISCUSSION: The medial branch nerves carry sensory and nociceptive information from the corresponding facet joints. The patient having undergone a local anesthetic block of the above noted medial branch(es) didhave significant alleviation of the typical pain brought on by axial extension. If pain relief is achieved follow medial branch block, this would suggest the possibility that the corresponding facet jointsare possible pain generators. RECOMMENDATION: 1. We will have the patient fill out a pain journal to determine the next step. 2. Patient advised not to drive for the remainder of the day Dakota Palumbo M.D. documented in this encounter Plan of Treatment Not on filedocumented as of this encounter Procedures Procedure Name Priority Date/Time Associated Diagnosis Comme nts FL C ARM 20 PAIN Routine 06/07/2017 10:58 Spondylosis of Resul ts for this MANAGEMENT AM CDT cervical region procedure ar e in without myelopathy or the re sults radiculopathy section. documented in this encounter Results FL C Arm 40 Pain Management (07/21/2017 11:06 AM CDT) Anatomical Region Laterality Modality Radiographic Imaging Specimen (Source) Anatomical Location Collection Method / Collectio n Time Received Time / Laterality Volume Narrative 07/21/2017 11:24 AM CDT Images obtained during surgical procedure. See procedure note in Epic on this date. Dakota HUGHES FL FL C Arm 20 Pain Management (06/07/2017 10:58 AM CDT) Anatomical Region Laterality Modality Radiographic Imaging Specimen (Source) Anatomical Location Collection Method / Collectio n Time Received Time / Laterality Volume Narrative 06/08/2017 10:09 AM CDT Images obtained during surgical procedure. See procedure note in Epic on this date. Dakota Palumbo MD RAD FL documented in this encounter Visit Diagnoses Diagnosis Spondylosis of cervical region without m yelopathy or radiculopathy (HRC) Cervical spondylosis without myelopathy Spondylosis of cervical region without m yelopathy or radiculopathy (HRC) Cervical spondylosis without myelopathy documented in this encounter Care Teams Tree Fruit And Nut Crops Farmer Relationship Specialty Start Date End Date Needs Pcp, Assignment PCP - General 04/24/14 [place] [address] documented as of this encounter
--- OUTSIDE RECORDS SUMMARY | 2022-08-03 21:32 | XMS_ITS | Encounter Summary ---
:1975 Author Organization [employer] Address [address] [place] [address] Care Team Providers Name Role Phone Needs Pcp, Assignment Primary Care Provider Reason for Visit Reason Comments PAIN, HEAD Encounter Details Date Type Department Care Team Description 09/07/2017 Nurse Triage Careline Unassigned, Provider PAIN, HEAD [address] [place], [place] [address] [address] [place] [address] Social History Tobacco Use Types Packs/Day Years [...] documented as of this encounter Nursing Notes Malu Aguirre RN - 09/07/2017 7:11 PM CST Reason for Disposition ??? Patient sounds very sick or weak to the triager Answer Assessment - Initial Assessment Questions 1. LOCATION: Where does it hurt? Occipital area. Left more than R. 2. ONSET: When did the headache start? (Minutes, hours or days) Yesterday It worsened. 3. PATTERN: Does the pain come and go, or has it been constant since it started? Constant. Was able to sleep last Night. 4. SEVERITY: How bad is the pain? and What does it keep you from doing? (e.g., Scale 1-10; mild,moderate, or severe) - MILD (1-3): doesn't interfere with normal activities - MODERATE (4-7): interferes with normal activities or awakens from sleep - SEVERE (8-10): excruciating pain, unable to do any normal activities Severe. 9-10. Pt crying. 5. RECURRENT SYMPTOM: Have you ever had headaches before? If so, ask: When was the last time? and What happened that time? Yes. Hx of migraines. Cervical nerve ablation done apx 8 weeks ago that Pt feels did not work. 6. CAUSE: What do you think is causing the headache? Neck nerve pain 7. MIGRAINE: Have you been diagnosed with migraine headaches? If so, ask: Is this headache similar? Yes. 8. HEAD INJURY: Has there been any recent injury to the head? Denies 9. OTHER SYMPTOMS: Do you have any other symptoms? (fever, stiff neck, eye pain, sore throat, coldsymptoms) Nausea. Protocols used: [id number] Malu Arnett RN - 09/07/2017 7:08 PM CST Verified patient identity using three identifiers: Yes per Pt. Situation/Background (brief explanation of current symptoms/situation): Neck pain causing a severe headache not controlled with [place] and Imitrex. nerve ablation done apx 8 weeks ago. No improvement in symptoms. Yesterday noted an increase of pain/ headache in the occipital area. It feels like my head will pop off. Pt states she has to work. Wondering if she should go to the ED tonight. Denies numbness, weakness or vision changes. Took 1/2 of a Chatfield and an Imitrex apx 4 hours ago. No change in symptoms. Pt becomes tearful during triage. Reviewed with patient pertinent medical history(as it related to the call): Yes Spondylosis of cervical region without myelopathy or radiculopathy , hx of migraines. Reviewed with patient pertinent medications (as they relate to call): Yes Naty Caal - 09/07/2017 7:02 PM CST Verified patient identity using three identifiers: Yes Caller's relationship to patient: Self Symptoms Which care system or clinic is the patient normally seen at? [facility] ([facility]) Clinics Describe the reason for call/symptoms (if pain, include location): pt states she had a nerve ablation, pain has been really intense in neck up into head since yesterday How long have you been experiencing the symptom(s): since yesterday Plan:Caller transferred directly to CareLine nurse. H STRIPPER documented in this encounter Plan of Treatment Not on filedocumented as of this encounter Visit Diagnoses Not on filedocumented in this encounter Care Teams Network Planner Relationship Specialty Start Date End Date Needs Pcp, Assignment PCP - General 04/24/14 [place] [address] documented as of this encounter
--- OUTSIDE RECORDS SUMMARY | 2022-08-03 21:32 | XMS_ITS | Encounter Summary ---
:1975 Author Organization [facility] Address [address], [place] [address] Care Team Providers Name Role Phone Needs Pcp, Assignment Primary Care Provider Reason for Visit Reason Comments Pre-procedure Call Encounter Details Date Type Department Care Team Description 03/22/2018 Telephone [facility] Erin Askew RN Pre-procedure Call [address] [place], [place] [address] Social History Tobacco Use Types [...] on filedocumented in this encounter Care Teams Shipping Room Helper Relationship Specialty Start Date End Date Needs Pcp, Assignment PCP - General 04/24/14 [place] [address] documented as of this encounter
--- OUTSIDE RECORDS SUMMARY | 2022-08-03 21:32 | XMS_ITS | Encounter Summary ---
:1975 Author Organization [facility] Address [address], [place] [address] Care Team Providers Name Role Phone Needs Pcp, Assignment Primary Care Provider Reason for Visit Reason Comments Refill Encounter Details Date Type Department Care Team Description 12/13/2017 Refill [facility] Dakota Aparicio MD Refill [address] [address] [address] [place] [address] [phone] (Wo rk) Social History Tobacco Use Types [...] myelopathy documented in this encounter Care Teams Jewelry Estimator Relationship Specialty Start Date End Date Needs Pcp, Assignment PCP - General 04/24/14 [place] [address] documented as of this encounter
--- OUTSIDE RECORDS SUMMARY | 2022-08-03 21:32 | XMS_ITS | Encounter Summary ---
:1975 Author [facility] Address [address] [place] [address] Care Team Providers Name Role Phone Needs Pcp, Assignment Primary Care Provider Reason for Visit Reason Onset Date Comments Refill 02/22/2018 Encounter Details Date Type Department Care Team Description 02/22/2018 Refill [facility] Erin Askew RN Refill [address] [place], [place] [address] Social History Tobacco Use Types [...] encounter Nursing Notes Johnathan Perez MD - 02/22/2018 12:42 PM CDT Prescription Monitoring Program Report As I am helping to treat this patient's clinically significant pain and considering medication options as part of a broader management scheme, I personally reviewed the patient's up-to-date INBOUND SALES ADVISOR report for [place], as well as any other pertinent, available states. This did reveal consistency with our ongoing plan. I did not appreciate any concerning behavior or suspicious patterns in the patient's prescription history. I used this information while constructing a tailored treatment plan, considering risks and benefits of treatment, non-treatment and alternative treatment regarding opioid pain medic ations and other controlled substances. Refilled after reviewing Ney's notes and INBOUND SALES ADVISOR - please let patient know; also request a follow up with with Dr. Aparicio if there is ongoing medication management. Johnathan Perez MD 02/22/2018, 12:45 PM Erin Askew RN - 02/22/2018 12:08 PM CDT Images from the original note were not included. INBOUND SALES ADVISOR Johnathan Perez MD - 02/22/2018 12:02 PM CDT This may be reasonable based on Dr. Aparicio's long-standing relationship and interdisciplinary/multimodal care plan. However, please 1st run a prescription monitoring report and final decision will be made after reviewing his documentation. Johnathan Perez MD 02/22/2018, 12:03 PM Erin Askew RN - 02/22/2018 11:43 AM CDT Patient called in and is desperate as her headaches have gotten so bad lately. Is requesting refill of [place]. Last OV note on 11/01/17 noted [place] 5/325mg - take 1/2 tab every other day. Please approve or advise in Dr. Aparicio absence. documented in this encounter Plan of Treatment Not on filedocumented as of this encounter Visit Diagnoses Diagnosis Spondylosis of cervical region without m yelopathy or radiculopathy (HRC) Cervical spondylosis without myelopathy Occipital headache Headache Occipital neuralgia of left side documented in this encounter Care Teams Radiologic Technology Program Director Relationship Specialty Start Date End Date Needs Pcp, Assignment PCP - General 04/24/14 [place] [address] documented as of this encounter
--- OUTSIDE RECORDS SUMMARY | 2022-08-03 21:32 | XMS_ITS | Encounter Summary ---
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) Dakota Aparicio MD Procedures Inj Midazolam Hydrochloride [address] [place] [address] 540 17 Referral ID Status Reason Start Date Expiration Date Visits Requ ested Visits Authorized [id number] Closed 07/21/2017 10/20/2018 1 1 Reason for Visit Reason Comments Procedure Procedure/Equipment (Routine) - Incomplete Specialty Diagnoses / Procedures Referred By Contact Refer red To Contact Diagnoses 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) Dakota Aparicio MD Procedures FL C Arm 40 Pain Management [address] [place] [address] 17 Referral ID Status Reason Start Date Expiration Date Visits V isits Requested Authorized [id number] Incomplete 06/10/2017 09/09/2018 1 1 Encounter Details Date Type Department Care Team Description 07/21/2017 Procedure Visit [facility] Dakota Aparicio MD [address] [place] [address] Procedure [address] [facility] 3, [address] [place], [place] [address] Social History Tobacco Use Types [...] Sign Reading Time Taken Comments Blood Pressure 138/84 07/21/2017 11:20 AM CDT Pulse 64 07/21/2017 11:20 AM CDT Temperature 36.7 ??C (98 ??F) 07/21/2017 10:07 AM CDT Respiratory Rate 16 07/21/2017 11:20 AM CDT Oxygen Saturation 100% 07/21/2017 11:20 AM CDT Inhaled Oxygen Concentration - - Weight 68 kg (150 lb) 07/21/2017 10:07 AM CDT Height 180.3 cm (5' 11) 07/21/2017 10:07 AM CDT Body Mass Index 20.92 07/21/2017 10:07 AM CDT documented in this encounter Patient Instructions Patient InstructionsLeyla Mendez RN - 07/21/2017 9:50 AM CDT FOLLOW UP PLAN: You will follow up in the [facility] as discussed: call [phone] to arrange an appointment if you do not already have one. Dr. Dakota Aparicio MD Interventional Pain Physician and Anesthesiologist Please contact the Pain Nurse ([phone]) for all medical/procedural questions regarding your care at the [facility] Please contact our Manager Of Operations ([phone]) for all administrative/scheduling questions related to the [facility] Medication Requests: Prescriptions requiring refills must be requested from the prescribing physician. If Dr. Aparicio prescribed your medication, call the number above. If any other physician prescribed your medication, please contact his or her office to discuss. HOME INSTRUCTIONS FOLLOWING SEDATION: The medication you [...] effects or other non-urgent concerns, call the [facility] Nurse Line from 8am-4pm at [phone] Call 911 or go to the nearest Emergency Department if you experience: Fever Chest pain Progressive extremity weakness Difficult maintaining consciousness Loss of bowel or bladder control Shortness of breath Any other medical emergency Radiofrequency Ablation Post-Procedure Instructions: ?? 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 ?? [...] Warmth ?? Tingling ?? Heaviness ?? Numbness ?? If the symptoms last more than 12 hours, call the doctor documented in this encounter Progress Notes Lila Garcia RN - 07/21/2017 9:50 AM CDT Patient here for cervical RFA procedure. Patient rates pain in left neck, 10/10 at rest, 10/10 with activity. Verified NPO status. Pre-op teaching completed, patient verbalizes understanding. 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 Consent per MD. Lucy Albrecht RN - 07/21/2017 9:50 AM CDT Sedation time [id number] Leyla Mendez RN - 07/21/2017 9:50 AM CDT Patient tolerated procedure well, vital signs stable. Post-procedure pain level 4/10 at rest, 4/10 with activity. Discharge instructions given (written & verbal review), patient verbalized understanding. Patient discharged to home at 1124 via ambulatory with friend driving. documented in this encounter Procedure Notes Dakota Aparicio MD - 07/21/2017 9:50 AM CDT Sedation Plan Planned Procedure: Cervical RFA C234 on the left side Physical Exam: Vital Signs: BP 121/87 Pulse 63 Temp 36.7 ??C (98 ??F) Resp 18 Ht 1.803 m (5' 11) Wt 68 kg (150 lb) BMI 20.92 kg/m2 Estimated body mass index is 20.92 kg/(m^2) as calculated from the following: Height as of this encounter: 1.803 m (5' 11). Weight as of this encounter: 68 kg (150 lb). History and Physical Completed: yes Lung exam within normal limits: yes Heart exam within normal limits: yes Prior Anesthesia Reaction: no Mouth Opening Normal: yes C-Spine (flex-Ext) Normal: yes Chin to Neck Distance Normal: yes Mallampati Class: class I ASA Status: ASA 1 - Normal healthy patient NPO yes > 6 hours Indications for Procedure: The procedure was described [...] obtained and is documented in the chart. Dakota Aparicio MD - 07/21/2017 9:50 AM CDT Procedure: Radiofrequency Ablation with Fluoroscopy on the Left Side at Levels C 34 and TON - Posterior Approach Note: The cervical medial branch indicated above corresponds to the lateral mass of the vertebral body at the same level. INDICATION: 1. Cervical facet joints arthropathy. Chronic cervical facet joint mediated neck pain. 2. Conscious sedation for anxiety and pain control. Needle Type: 20 gauge 10cm with 10mm active tip Pedro Luis RF probe Sedation: 2 mg of IV versed + 50mcg of fentanyl Local Anesthetic: 3 ml of 1% lidocaine injected at each site IV Fluids: 150ml NS Injected Solution Prior to Ablation: 3% lidocaine PF injected at each site -- 1 ml of this solution injected at each nerve Additional Medications Administered: none Sedation time 30minutes Estimated Blood Loss -< 2ml Drains: None Specimens Removed: None Urine Output - Not Measured Complications: None Outcome: Good VAS with extension before RF: 10/10 VAS with extension 10 minutes after RF: 4/10 Informed Consent: The patient's condition and proposed procedures, risks, and alternatives were discussed with the patient or responsible democrat. Possible risks and complications associated with the procedure and conscious sedation reviewed, including but not limited to infection, bleeding, injury to nerves, muscle, bone or skin, paralysis, worse pain, allergic reaction, or side effects of medications used. The patient's / responsible democrat's questions were answered. The patient / responsible democrat appeared to [...] respective facet pillar with intermittent lateral view fluoroscopy till the active tip was placed across the center of the trapezoid of the facet pillar and along the path of the above-mentioned nerves, ( or to the C2-3 lateral joint in line in the case of the 3rd occipital nerve RF) without impingement of the neural foramen. For confirmation at this point, the uppermost articular pillar was distinguished from the opposite side either by rotating the fluoroscope. The needle could then be seen traveling with the uppermost articular pillar as the two articular pillars on the fluoroscopic image. Once all the cannulae were in position, an impedance of 248, 302, 299 ohms at 50 Hz was noted for the above indicated medial branch nerves, respectively from cephalad to caudad. Sensory stimulation wasperformed at 0.7, 0.6, 0.7 volts. Good stimulation was elicited, indicating correct alignment with the posterior primary ramus. Absence of upper extremity motor fasciculation was noted at 2.0 volts at 2 Hz stimulation for the above noted medial branch nerves, respectively from cephalad to caudad. Following confirmatory stimulation, negative aspiration for heme or CSF was noted at each level. Next, the above noted solution was injected at each nerve prior to the ablation. After a 30 second delay, lesions were performed at a temperature of 80??C for a total of 70 seconds. The needles had a characteristic V shape of the venom needle. After the needle tips had cooled to [...] Instructed the patient can take up to 4-6 weeks to notice significant pain reduction. Some patients may have some discomfort the next day or several days or weeks during the healing process. 2. We will plan to have the patient follow up as needed in our clinic for evaluation of today's procedure. 3. Patient was advised not to drive for the remainder of the day. 4. I did prescribe #21 tabs of [place] for the patient as she recovers from this procedure. She has been trying to wean off. She will follow-up with me in 2 weeks to see how she is doing overall. documented in this encounter Plan of Treatment Not on filedocumented as of this encounter Procedures Procedure Name Priority Date/Time Associated Diagnosis Comme nts FL C ARM 40 PAIN Routine 07/21/2017 11:06 Spondylosis of Resul ts for this MANAGEMENT [...] note in Epic on this date. Dakota Aparicio MD RAD FL documented in this encounter Visit Diagnoses Diagnosis Spondylosis of cervical region without m yelopathy or radiculopathy (HRC) Cervical spondylosis without myelopathy documented in this encounter Administered Medications Inactive Administered Medications - up to 3 most recent administrations Medication Order MAR Action Action Date Dose Rate Site fentaNYL (SUBLIMAZE) injection Given 07/21/2017 10:36 AM CDT 50 mcg 25-100 mcg 25-100 mcg, Intravenous, Q2MIN PRN, Pain, Sedation, Procedure, Starting on Malgorzata 07/21/17 at 1029, Until Malgorzata 07/21/17 at 1521 midazolam (VERSED) injection 0.5-2 mg Given 07/21/2017 10:36 AM CDT 2 mg 0.5-2 mg, Intravenous, Q2MIN PRN, Sedation, Anxiety, Procedure, Starting on Malgorzata 07/21/17 at 1029, Until Malgorzata 07/21/17 at 1521 sodium chloride 0.9% infusion Started 07/21/2017 10:30 AM CDT 50 mL/hr Intravenous, at 50 mL/hr, CONTINUOUS, Starting on Malgorzata 07/21/17 at 1045 documented in this encounter Care Teams County Court Judge Relationship Specialty Start Date End Date Needs Pcp, Assignment PCP - General 04/24/14 [place] [address] documented as of this encounter
--- OUTSIDE RECORDS SUMMARY | 2022-08-03 21:32 | XMS_ITS | Encounter Summary ---
:1975 Author Organization [facility] Address [address], [place] [address] Care Team Providers Name Role Phone Needs Pcp, Assignment Primary Care Provider Reason for Visit Reason Onset Date Comments Post Visit Follow Up Phone Call 07/22/2017 Encounter Details Date Type Department Care Team Description 07/22/2017 Telephone [facility] Erin Askew RN Post Visit Follow Up [address] [facility] Phone Call [place], [place] [address] Social History Tobacco Use Types [...] as of this encounter Nursing Notes Erin Askew RN - 07/22/2017 8:34 AM CDT LMTCB post call. documented in this encounter Plan of Treatment Not on filedocumented as of this encounter Visit Diagnoses Not on filedocumented in this encounter Care Teams Black Leather Trimmer Relationship Specialty Start Date End Date Needs Pcp, Assignment PCP - General 04/24/14 [place] [address] documented as of this encounter
--- OUTSIDE RECORDS SUMMARY | 2022-08-03 21:32 | XMS_ITS | Encounter Summary ---
:1975 Author Organization [facility] Address [address], [place] [address] Care Team Providers Name Role Phone Needs Pcp, Assignment Primary Care Provider Reason for Visit Reason Onset Date Comments Pre-procedure Call 07/18/2017 Encounter Details Date Type Department Care Team Description 07/18/2017 Telephone [facility] Anahi Barnes RN Pre-procedure Call [address] [place], [place] [address] Social History Tobacco Use Types [...] on filedocumented in this encounter Care Teams Vocational Trainer Relationship Specialty Start Date End Date Needs Pcp, Assignment PCP - General 04/24/14 [place] [address] documented as of this encounter
--- OUTSIDE RECORDS SUMMARY | 2022-08-03 21:32 | XMS_ITS | Encounter Summary ---
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) Dakota Aparicio MD Procedures FL C Arm 40 Pain Management [address] [place] [address] 540 17 Referral ID Status Reason Start Date Expiration Date Visits V isits Requested Authorized [id number] Incomplete 04/04/2018 07/04/2019 1 1 Reason for Visit Reason Comments RESULTS, TEST Encounter Details Date Type Department Care Team Description 04/04/2018 Telephone [facility] Dakota Aparicio MD RESULTS, TEST [id number] [place] [address] [phone] (Wo rk) Social History Tobacco Use Types [...] encounter Nursing Notes Dakota Aparicio MD - 04/04/2018 4:46 PM CDT I spoke to Vivek on the phone. She did get some relief (Nearly complete relief for an hour) and then the pain returned. She would like to proceed with the RFA. Will place the orders. Dakota Aparicio MD 04/04/2018, 4:47 PM Dakota Aparicio MD - 04/04/2018 4:46 PM CDT ----- Message from Chandler Baird sent at 03/31/2018 1:29 PM CDT ----- Regarding: AC, MBB diary We received Vivek's MBB diary today. Please let me know how we are proceeding. LEFT 7 0 1 3 4 7 8 9 0 documented in this encounter Plan of Treatment Not on filedocumented as of this encounter Results FL C Arm 40 [...] (HRC) - Primary Cervical spondylosis without myelopathy Spondylosis of cervical region without m yelopathy or radiculopathy (HRC) Cervical spondylosis without myelopathy documented in this encounter Care Teams Medical Instrument Technician Relationship Specialty Start Date End Date Needs Pcp, Assignment PCP - General 04/24/14 [place] [address] documented as of this encounter
--- OUTSIDE RECORDS SUMMARY | 2022-08-03 21:32 | XMS_ITS | Encounter Summary ---
:1975 Author Organization [facility] Address [address], [place] [address] Care Team Providers Name Role Phone Needs Pcp, Assignment Primary Care Provider Reason for Visit Reason Onset Date Comments Post Visit Follow Up Phone Call 05/25/2017 Encounter Details Date Type Department Care Team Description 05/25/2017 Telephone [facility] Erin Askew RN Post Visit Follow Up [address] [facility] [address] Phone Call [place], [place] [address] Social History Tobacco Use Types [...] encounter Nursing Notes Erin Askew RN - 05/25/2017 9:42 AM CDT Procedure done: MBB Were you able to rest at home? yes What is your pain at now? 3/10 What was your pain at it's worse since the procedure? 9/10 Any Side effects? no Any other concerns or questions? no Was the service provided satisfactory? yes Additional Comments: documented in this encounter Plan of Treatment Not on filedocumented as of this encounter Visit Diagnoses Not on filedocumented in this encounter Care Teams Behavioral Therapist Relationship Specialty Start Date End Date Needs Pcp, Assignment PCP - General 04/24/14 [place] [address] documented as of this encounter
--- OUTSIDE RECORDS SUMMARY | 2022-08-03 21:32 | XMS_ITS | Encounter Summary ---
:1975 Author [facility] Address [address] [address] Care Team Providers Name Role Phone Needs Pcp, Assignment Primary Care Provider Reason for Visit Reason Comments Finger Pain left Encounter Details Date Type Department Care Team Description 08/04/2017 Office Visit TRIL[facility] Fernando Vieyra Fing er pain, left CENTER (Primary Dx) [address] [facility] [address] [facility] [address] [place] [address] [place], [place] [phone] (Wo rk) Social History Tobacco Use Types [...] as of this encounter Patient Instructions Patient InstructionsKueGibran yuan, OA - 08/04/2017 9:[address] Luis Fernando Garcia MD Hand & Upper Extremity Surgeon [employer] Sales Representative: Mickie Olmos Please contact Mickie for all surgery scheduling and administrative questions at [phone] Hand Nurse: Luigi Wilson Please contact Luigi for all medical related questions at [phone] Medication Requests: Prescriptions are not filled on Weekends or on Weekdays after 3:00PM For all medication refills: Request a refill using [employer] or contact your Pharmacy Please call [phone] to make future appointments. Follow up as discussed documented in this encounter Progress Notes Luis Fernando Garcia MD - 08/04/2017 9:00 AM CDT [facility] Follow-Up 08/04/2017 Chief Complaint: Post-Surgical pain History of Present Illness: Vivek Echeverria is a 42 y.o. 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 I last saw this patienton 01/29/2016, at which time the patient's finger was fully functional and she was at [employer]. Today the patient is having pain in the left small finger for approximately 2 months. Her pain is typically minimal at rest and in the mornings but increases during work and at the end of the day. She describes tightness in the finger. The patient denies any recurrent catching or locking in the finger as well as any numbness or tingling. Physical Exam: General: Healthy appearing female. Affect appropriate. Normal gait. Alert and oriented x 3. Cardiovascular/Neuro: Sensation intact to light touch in all digits. Fingertips pink and well-perfused. Capillary refill less than two seconds. Left Hand/Small Finger: The surgical scar is benign appearing. There is full range of motion. There is no catching. No significant edema. Assessment: Diagnosis and Associated Orders ICD-10-CM 1. Finger pain, left M79.645 Post left small trigger finger release Plan: I examined the patient and discussed treatment options. I offered the patient a corticosteroid injection today to help with her pain. Risks and benefits of the injection were reviewed. The patient voiced understanding of the information discussed, and at this time, elects to proceed with conservative management of her symptoms. She will continue to keep close watch over the finger for now. The patient may return for an injection should her pain persist or should she develop new or worsening symptoms. All questions were answered and she will follow up PRN. Scribe Disclosure: I, Ruben Edwards, am serving as a scribe to document services personally performed by Luis Fernando Garcia MD at this visit, based upon the provider's statements to me. All documentation has been reviewed by the aforementioned provider prior to being entered into the official medical record. Portions of this medical record were completed by a scribe. UPON MY REVIEW AND AUTHENTICATION BY ELECTRONIC SIGNATURE, this confirms (a) I performed the applicable clinical services, and (b) the recordis accurate. Luis Fernando Garcia MD documented in this encounter Plan of Treatment Not on filedocumented as of this encounter Visit Diagnoses Diagnosis Finger pain, left - Primary Pain in limb documented in this encounter Care Teams Chocolate Production Machine Operator Relationship Specialty Start Date End Date Needs Pcp, Assignment PCP - General 04/24/14 [place] [address] documented as of this encounter
--- OUTSIDE RECORDS SUMMARY | 2022-08-03 21:32 | XMS_ITS | Encounter Summary ---
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) Occipital neuralgia of left side Dakota Aparicio MD Procedures FL C Arm 20 Pain Management [address] [place] [address] [phone] Referral ID Status Reason Start Date Expiration Date Visits V isits Requested Authorized [id number] Incomplete 03/07/2018 06/06/2019 1 1 Encounter Details Date Type Department Care Team Description 03/28/2018 Procedure Visit [facility] Dakota Aparicio MD [address] [place] [id number] Procedure [address] [facility] [address], [address] [place], [place] [address] Social History Tobacco Use Types [...] Sign Reading Time Taken Comments Blood Pressure 114/78 03/28/2018 1:29 PM CDT Pulse 73 03/28/2018 1:29 PM CDT Temperature 37 ??C (98.6 ??F) 03/28/2018 12:44 PM CDT Respiratory Rate 16 03/28/2018 1:29 PM CDT Oxygen Saturation 100% 03/28/2018 1:29 PM CDT Inhaled Oxygen Concentration - - Weight 68 kg (149 lb 14.6 oz) 03/28/2018 12:44 PM CDT Height 182 cm (5' 11.65) 03/28/2018 12:44 PM CDT Body Mass Index 20.53 03/28/2018 12:44 PM CDT documented in this encounter Patient Instructions Patient InstructionsLila Garcia RN - 03/28/2018 12:30 PM CDT FOLLOW UP PLAN: You will follow up in the [facility] as discussed: call [phone] to arrange an appointment if you do [...] 12 hours, call the doctor Dr. Dakota Aparicio MD Interventional Pain Physician and Anesthesiologist Please contact the Pain Nurse ([phone]) for all medical/procedural questions regarding your care at the [facility] Please contact our Natural Resource Officer ([phone]) for all administrative/scheduling questions related to the [facility] Medication Requests: ?? Prescriptions requiring refills must be requested from the prescribing physician. If Dr. Aparicio prescribed your medication, call the number above. If any other physician prescribed your medication,please contact his or her office to discuss. documented in this encounter Progress Notes Theresa Houston RN - 03/28/2018 12:30 PM CDT Patient here for MBB#1 procedure. Patient rates pain in neck, 2/10 at rest, 7/10 with activity. Verified NPO status. Pre-op teaching completed, patient verbalizes understanding. Confirmed pt has driverhome. Consent per MD. Juan Alberto Bermudez RN - 03/28/2018 12:30 PM CDT Patient tolerated procedure well, vital signs stable. Post-procedure pain level 0/10 at rest, 0/10 with activity. Discharge instructions given (written & verbal review), patient verbalized understanding. Patient discharged to home at 1332 via ambulatory with electric screw driver operator partner. documented in this encounter Procedure Notes Dakota Aparicio MD - 03/28/2018 12:30 PM CDT Procedure: left, Cervical 3rd occipital nerve Medial Branch Block with Fluoroscopy Note: The cervical medial branch indicated above corresponds to the lateral mass of the vertebral body at the same level. Postprocedural Diagnosis: Cervical facet arthopathy Needle Type: 1.5 inch 25 gauge Contrast Dye - Isovue M200 0.2ml at each level (from a 10ml vial) Diagnostic Local Anesthetic - 0.4 ml of -0.5% bupivacaine injected at each target nerve Anesthesia - none IV Fluids - none Additional Medications Administered: none Estimated Blood Loss - <2 Drains: None Specimens Removed: None Urine Output - Not Measured Complications: None Outcome: Good VAS with extension before Injection: 7/10 VAS with extension 10 minutes after Injection: 0/10 Informed Consent: The patient's condition and proposed procedures, risks, and alternatives were discussed with the patient or responsible republican. The patient's / responsible republican's questions were answered. The patient / responsible republican appeared to understand and chose to proceed. [...] block of the above noted medial branch(es) did have significant alleviation of the typical pain brought on by axial extension. If pain relief is achieved follow medial branch block, this would suggest the possibility that the corresponding facet joints are possible pain generators. RECOMMENDATION: 1. We will have the patient fill out a pain journal to determine the next step. 2. Patient advised not to drive for the remainder of the day Dakota Aparicio M.D. documented in this encounter Plan of Treatment Not on filedocumented as of this encounter Procedures Procedure Name Priority Date/Time Associated Diagnosis Comme nts FL C ARM 20 PAIN Routine 03/28/2018 1:18 PM Spondylosis of Res ults for this MANAGEMENT CDT cervical region procedure ar e in without myelopathy the resul ts or radiculopathy section. Occipital neuralgia of left side documented in this encounter Results FL C Arm 20 Pain Management (03/28/2018 1:18 PM CDT) Anatomical Region Laterality Modality Radiographic Imaging Specimen (Source) Anatomical Location Collection Method / Collectio n Time Received Time / Laterality Volume Narrative 03/28/2018 1:20 PM CDT Images obtained during surgical procedure. Dakota Aparicio MD RAD CT documented in this encounter Visit Diagnoses Diagnosis Spondylosis of cervical region without m yelopathy or radiculopathy (HRC) Cervical spondylosis without myelopathy Occipital neuralgia of left side documented in this encounter Care Teams Manager Filter Relationship Specialty Start Date End Date Needs Pcp, Assignment PCP - General 04/24/14 [place] [address] documented as of this encounter
--- OUTSIDE RECORDS SUMMARY | 2022-08-03 21:32 | XMS_ITS | Encounter Summary ---
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) Occipital neuralgia of left side Dakota Aparicio MD Procedures FL C Arm 20 Pain Management [address] [place] [address] [phone] Referral ID Status Reason Start Date Expiration Date Visits V isits Requested Authorized [id number] Incomplete 03/07/2018 06/06/2019 1 1 Reason for Visit Reason Comments Follow-up Encounter Details Date Type Department Care Team Description 03/07/2018 Office Visit [facility] Dakota Aparicio MD [address] [place] [id number] Spondylosis of cervical region without m yelopathy or radiculopathy (Primary Dx); [address] Occipital neuralgia of left side [place], [place] [id number] Social History Tobacco Use Types Packs/Day Years [...] Sign Reading Time Taken Comments Blood Pressure 149/81 03/07/2018 11:23 AM CDT Pulse 91 03/07/2018 11:23 AM CDT Temperature - - Respiratory Rate 20 03/07/2018 11:23 AM CDT Oxygen Saturation - - Inhaled Oxygen Concentration - - Weight - - Height - - Body Mass Index - - documented in this encounter Patient Instructions Patient InstructionsDakota Aparicio MD - 03/07/2018 11:10 AM CDT 1) Timberon refill - this is not going to be a nursing home refill. This will make your headaches and painworse over time. Will do a one time refill of this medication. 2) Will schedule for a repeat cervical medial branch block 3) Depending on the results, will proceed with a cervical RFA at this level: C2 (3rd occipital nerve) and C3. 4) Schedule for pain psychology Opioid prescription: 1 in 5 people that start an opioid for an acute injury never stop. Unfortunately, opioids are the leading cause of unintentional in the [place], surpassingcar accidents. Today, nearly half of all [place] opioid overdose deaths involve a prescription opioid. This can occur even when taking the medication as directed. ??In 2015, more than 15,000 people from overdoses involving prescription opioids. Like any treatment associated with a significantly high rate, there have been some safety recommendations put in place. First, because opioids consistently fail to demonstrate benefits for chronic non-cancer pain > 6 months, they are no longer recommended for chronic pain in this setting. If you are on opioids, the main goal would be to increase function, thus allowing one to continue with daily exercises, prevent deconditioning, and prevent the development of further pain generators. You should always have a plan to eventually stop your opioid medications, and you should think about a stop date. Sometimes this can be extremely difficult. Opioid medications bind to the areas of the brain that control pain and emotions, driving up levels of the feeling good hormone dopamine in the brain's reward areas and producing an intense feeling of euphoria. As the brain becomes used to the feeling is, it often takes more and more of the drug to produce the same levels of pain relief and well-being, leading to dependence and, later, addiction. Here is a summary of the risks. Risks of opioids: ??? Physical dependence (you need to continue it to prevent withdrawal symptoms; NOT the same as addiction) ??? Tolerance (decreased duration of pain relief) ??? Addiction (preoccupation with the drug, inability to control the amount used, craving the psychological effects of the drug, continued use despite adverse effects) ??? Constipation - make sure you are having regular bowel movements and taking supplement stool softeners if necessary. Opioids slow down the gastrointestinal tract and carry the risk of bowel obstruction if ignored ??? Nausea ??? Sleep apnea - may worsen sleep apnea and further respiratory depression. ??? Hormonal effects (low testosterone) ??? Accelerated bone loss ??? Hyperalgesia (a phenomenon of opioids increasing your baseline pain overtime) ??? Immunosuppression ??? For women - risk of opioid dependence and opioid withdrawal of the baby after . There is also a possible risk of miscarriage while on high dose opioids. ??? The most serious risk is unintentional overdose and . Opioids can slow your breathing down,or stop your breathing. The risk is amplified when someone is on multiple medications or substances that cause sedation. This can include the use of benzodiazepines, alcohol, or sleep aids. It can alsocause or worsen sleep apnea, a condition where you stop breathing adequately during certain times atnight. Driving with opioids: It is ALWAYS illegal to drive while impaired by any substance, including opioids, benzodiazepines, and sedating medications, in ALL states. As laws can military exchange wireless manager time, one should review the state government website to understand the laws governing driving while on prescription medications, such as opioids. Drugged Driving Defined A [place] motorist can be convicted of a drug DWI for driving, operating, or being in physical control of a motor vehicle while: ?? under the influence of a ???controlled substance? knowingly under the influence of a ???hazardous substance?? that affects the body and substantially impairs driving abilities, or ?? having??any??amount of a schedule I or II controlled substance (except marijuana) in the body. Schedule I and II controlled substances. The list of controlled substance in schedules I and II--thesubset of drugs that [place] law prohibits for drivers in??any??amount--contains substances such as: ?? heroin, LSD, and ecstasy on schedule I, and ?? methadone, oxycodone, morphine, hydrocodone, codeine, methamphetamine, and cocaine on schedule two. Safe Storage of Opioids It is importance to maintain safe storage of controlled substances, and keep these medications locked and secured from family members or children. documented in this encounter Progress Notes Leyla Mendez RN - 03/07/2018 11:10 AM CDT Images from the original note were not included. [facility] for follow up Patient here for follow up. She rates her occipital head pain 6/10 at rest and 7/20 with activity Dakota Aparicio MD - 03/07/2018 11:10 AM CDT Images from the original note were not included. Interventional Pain Follow-up Appointment Subjective: Vivek Echeverria is a 42 y.o. year-old female who is here today for follow-up. She presents with ongoing occipital head pain. I last saw her on 11/01/17 - at the time we did a brain / cervical MRI, PNBC referral, and a neurology referral for her headaches. About mid October until December - she had complete resolution of her pain. The pain started slowly coming back so she just stopped her topamax and elavil. Then the pain got worse. She also felt that the elavil was contributing to weight gain, so she stopped it. She then went to her neurology appointment. Overall, the pain has returned on the left occipital region. She has been going to the chiropractor. We did a cervical RFA on the left side in the past - after the procedure she had a significant reduction in headaches. The occipital pain persisted, but the headaches improved. ROS: No radiation down her hands No fevers No chills No weakness or numbness No neurological deficits No weakness slurred speech or confusion ? Pertinent Medications:?? Timberon up to 1/2 tab a day (ran out over the weekend) Topamax 50mg BID Imitrex 25mg PRN 50mg QHS elavil??(stopped) ?? Medications poorly tolerated in the past None noted ? Previous Medications: Gabapentin (didn't like the cognitive side effects), Cymbalta, mobic, Tylenol, aspirin, Celebrex, Voltaren, Aleve, ibuprofen, Robaxin, Flexeril, tizanidine, tramadol (didn't like how it made her feels)Lyrica, elavil. ? Procedures: Cervical facet joint injection at C2/3 01/12/17. Had relief during the local anesthetic phase (8->12/10), but no relief during the steroid phase. Trigger point injections - no help. Cervical RFA C2/3 07/21/17 - not sure if this is helping (helped with headaches) ? Cervical epidural 05/22/15 Current Medications: Outpatient Medications Prior to Visit Medication Sig Dispense Refill ??? estrogens, esterified,-methyltestosterone (ESTRATESTH.S.) 0.625-1.25 MG tablet Take 1 Tab by mouth daily. ??? HYDROcodone-acetaminophen (NORCO) 5-325 MG tablet Take 1/2 tab every other day as needed. 20 Tab0 ??? HYDROcodone-acetaminophen (NORCO) 5-325 MG tablet Take 1 Tab by mouth daily as needed for Pain. 30 Tab 0 ??? ondansetron (ZOFRAN-ODT) 4 MG disintegrating tablet Take 1-2 Tabs by mouth every 8 hours as needed for Nausea or Other (Headache). 60 Tab 3 ??? SUMAtriptan (IMITREX) 25 MG tablet Take 25 mg by mouth as needed for Migraine. ??? tiZANidine (ZANAFLEX) 2 MG tablet Take 1-2 Tabs by mouth two times daily as needed (pain). (Patient not taking: Reported on 03/07/2018) 60 Tab 0 ??? topiramate (TOPAMAX) 25 MG tablet TAKE 3 TABLETS BY MOUTH DAILY AT BEDTIME 90 Tab 0 ??? amitriptyline (ELAVIL) 25 MG tablet Take 1 Tab by mouth every evening. (Patient not taking: Reported on 02/21/2018) 90 Tab 3 ??? diclofenac (VOLTAREN) 1 % gel Apply 1-2 grams to affected area 4 times a day for pain relief. 100 g 3 No facility-administered medications prior to visit. Objective BP (!) 149/81 Pulse 91 Resp 20 Estimated body mass index is 20.63 kg/(m^2) as calculated from the following: Height as of 08/04/17: 1.816 m (5' 11.5). Weight as of 08/04/17: 68 kg (150 lb). Appearance: Grooming: appropriate Level of Distress: NAD Assistive Devices: none Physical Exam: General: No apparent distress HEENT: Pupils equal and round, nasopharynx clear Resp: Non-labored breathing Psych: Oriented; appropriate affect and insight, non-pressured speech Neuromuscular Exam: TTP in the occipital region - on the left side High cervical axial neck pain with rotation to the left and right - on the left side Motor is 5/5 in upper extremities. Sensation intact bilaterally. Assessment: Vviek is a 42 y.o. year-old female with: ICD-10-CM 1. Spondylosis of cervical region without myelopathy or radiculopathy ([facility]) M47.812 FL C Arm 20 PainManagement FL C Arm 40 Pain Management 2. Occipital neuralgia of left side M54.81 FL C Arm 20 Pain Management FL C Arm 40 Pain Management Vivek has evidence of multifactorial occipital and cervical genic neck pain. She suffers from dailyheadaches and migraines. In terms of the last RFA, she had a reduction in her headache frequency, soI think it is justified to repeat a C2 C3 medial branch block and RFA. Depending on the results, andif she gets relief, I may refer her for second opinion and consideration for an AA joint steroid injection. She did request a refill of Timberon today. I did provide #20 tabs but told her this is not to be a long-term solution. I told her this can lead to rebound headaches and worsening pain. She requests of this until we proceed with the RFA. Risks and side effects of opioids were discussed at today's visit. Plan: 1. Will schedule for a repeat cervical medial branch block - left side at C3 and TON. 2. Depending on the results, will proceed with a cervical RFA at this level: C2 (3rd occipital nerve) and C3. 3. Refills on Timberon today - any future refills needs a clinic visit. Dakota Aparicio MD 03/07/2018, documented in this encounter Plan of Treatment Not on filedocumented as of this encounter Results FL C Arm 20 [...] without myelopathy Occipital neuralgia of left side Spondylosis of cervical region without m yelopathy or radiculopathy (HRC) Cervical spondylosis without myelopathy Occipital neuralgia of left side documented in this encounter Care Teams Tobacco Sorter Relationship Specialty Start Date End Date Needs Pcp, Assignment PCP - General 04/24/14 [place] [address] documented as of this encounter
--- OUTSIDE RECORDS SUMMARY | 2022-08-03 21:32 | XMS_ITS | Encounter Summary ---
:1975 Author Organization [facility] Address [address], [place] [address] Care Team Providers Name Role Phone Needs Pcp, Assignment Primary Care Provider Reason for Visit Reason Comments Refill Encounter Details Date Type Department Care Team Description 03/09/2018 Refill [facility] Dakota Aparicio MD Refill [address] [address] [address] [place] [address] [phone] (Wo rk) Social History Tobacco Use Types [...] myelopathy documented in this encounter Care Teams Last Greaser Relationship Specialty Start Date End Date Needs Pcp, Assignment PCP - General 04/24/14 [place] [address] documented as of this encounter
--- OUTSIDE RECORDS SUMMARY | 2022-08-03 21:32 | XMS_ITS | Encounter Summary ---
:1975 Author Organization [employer] Address [address] [place] [address] Care Team Providers Name Role Phone Needs Pcp, Assignment Primary Care Provider Reason for Visit Reason Comments Follow-up Encounter Details Date Type Department Care Team Description 09/13/2017 Office Visit [facility] Dakota Aparicio MD [address] [place] [address] Occipital headache (Primary Dx); [address], [facility] Rad Rn Spondylosis of cervical region without m yelopathy or radiculopathy [place], [place] [id number] Social History Tobacco Use Types Packs/Day Years [...] Reading Time Taken Comments Blood Pressure 109/82 09/13/2017 2:29 PM BUSINESS SUPPORT ASSOCIATE Pulse 81 09/13/2017 2:29 PM BUSINESS SUPPORT ASSOCIATE Temperature - - Respiratory Rate 18 09/13/2017 2:29 PM BUSINESS SUPPORT ASSOCIATE Oxygen Saturation - - Inhaled Oxygen Concentration - - Weight - - Height - - Body Mass Index - - documented in this encounter Patient Instructions Patient InstructionsDakota Aparicio MD - 09/13/2017 2:10 PM CST 1) Occipital nerve block 2) Try elavil again - start at 25mg at night to help with sleep and nerve pain. Can cause sedation. 3) Refills on Donna - goal is to transition off of these. Can cause rebound headaches. Opioid prescription: 1 in 5 people that [...] medications, in ALL states. As laws can change release manager time, one should review the state government website to understand the laws governing driving while on prescription medications, such as opioids. Drugged Driving Defined A [place] motorist can be convicted of a drug [...] schedules I and II--thesubset of drugs that [place] law prohibits for drivers in??any??amount--contains substances such as: ?? heroin, LSD, and ecstasy on schedule I, and ?? methadone, oxycodone, morphine, hydrocodone, codeine, methamphetamine, and cocaine on schedule two. Safe Storage of Opioids It is importance to maintain safe storage of controlled substances, and keep these medications locked and secured from family members or children. NESS SUPPORT ASSOCIATE documented in this encounter Progress Notes Erin Askew RN - 09/13/2017 2:10 PM CST Patient here for followup. Patient rates pain in neck, 8/10 at rest, 8/10 with activity. NESS SUPPORT ASSOCIATE Lila Garcia RN - 09/13/2017 2:10 PM CST Images from the original note were not included. EDGE ROLLER for follow up NESS SUPPORT ASSOCIATE Dakota Aparicio MD - 09/13/2017 2:10 PM CST Interventional Pain Follow-up Appointment Subjective: Vivek Echeverria is a 42 y.o. year-old female who is here today for follow-up. She is s/p a cervicalRFA at C34 on 07/21/17 - she doesn't feel like she had any relief following this procedure. However, on a positive note, she gets significantly less migraines, and on exam, she is able to move her neck without substantial pain. She did try the tizanidine - didn't do anything. All of her pain is locatedon the left occipital region and radiates in the occipital nerve distribution. The pain is continuous and ongoing. It is essentially the same, or similar to the pain she initially presented with. ROS: No radiation down her arms No fevers No chills Sometimes feels fuzzy without Donna. No weakness or numbness Pertinent Medications:?? Donna up to 1 tab a day. Topamax 50mg TID Imitrex 25mg PRN - 1-2 times a month ?? Medications poorly tolerated in the past [...] 07/21/17 - not sure if this is helping. ? Physical Therapy: Has gone to 8 sessions of physical therapy over the past 2 months. ? (For women) She denies any chance of and is not attempting to get . ? Opioid functional assessment and risk assessment: ?? The patient states she??is??currently taking narcotics for pain ?? The patient states opioids do??increase her??level of function. ?? She??uses opioids to do activities such as work ?? Personal review of [place] Prescription Monitoring System,??and any other available, pertinent states, reveals: The patient's controlled substance filling history is??consistent with the medications and history mentioned above; there ??are not??red flags or concerning behavior. ? The patient is??driving ?? She??does not drive while feeling sedated or impaired from medications ?? She??is aware that there are liability implications if driving while impaired by any medication. ? Psychosocial Factors:?? Reports No??issues with depression Reports issues with anxiety Denies any suicidal or homicidal ideation. The patient has??seen a behavorial health specialist before. ? Smoking: None Alcohol: None Personal history of substance abuse: None Family history of substance abuse: Alcoholism. There is not??pending litigation related to the presenting pain condition. Current Medications: Outpatient Medications Prior to Visit Medication Sig Dispense Refill ??? diclofenac (VOLTAREN) 1 % gel Apply 1-2 grams to affected area 4 times a day for pain relief. 100 g 3 ??? estrogens, esterified,-methyltestosterone (ESTRATESTH.S.) 0.625-1.25 MG tablet Take 1 Tab by mouth daily. ??? indomethacin (INDOCIN) 50 MG capsule Take 50 mg by mouth three times a day with meals. ??? medroxyPROGESTERone (PROVERA) 5 MG tablet Take [...] daily as needed (pain). 60 Tab 0 ??? topiramate (TOPAMAX) 25 MG tablet Take 3 Tabs by mouth daily at bedtime. 90 Tab 3 ??? HYDROcodone-acetaminophen (NORCO) 5-325 MG tablet Take 1 Tab by mouth two times daily as needed for Pain. 45 Tab 0 No facility-administered medications prior to visit. Objective BP 109/82 Pulse 81 Resp 18 Estimated body mass index is 20.63 kg/(m^2) [...] affect and insight, non-pressured speech Neuromuscular Exam: No TTP in the left axial neck Occipital tenderness No pain with range of motion in her neck - extension, flexions, or oblique extension. CN II - XII intact bilaterally Motor 5/5 in UE bilaterally throughout. Assessment: Vivek is a 42 y.o. year-old female with: ICD-10-CM 1. Occipital headache R51 HYDROcodone-acetaminophen (NORCO) 5-325 MG tablet FL C Arm 20 Pain Management CANCELED: MR Cervical Spine WO IV Cont 2. Spondylosis of cervical region without myelopathy or radiculopathy ([facility]) M47.812 HYDROcodone-acetaminophen (NORCO) 5-325 MG tablet FL C Arm 20 Pain Management CANCELED: MR Cervical Spine WO IV Cont The major pain generator appears to be occipital neuralgia. She has improvement in her range of motion of her neck, and improvement in left-sided tenderness in her axial neck. She has essentially no axial neck pain at this time. I will therefore plan for a occipital nerve block. We will also retry Elavil at night. I also provided hydrocodone, with an plan of transitioning off of these. Risks and side effects were discussed. I would also like her to visit with her pain psychologist when she comes, as there is a lot of stress associated with her pain. Plan: 1) Occipital nerve block 2) Try elavil again - start at 25mg at night to help with sleep and nerve pain. Can cause sedation. 3) Refills on Donna - goal is to transition off of these. Can cause rebound headaches. Dakota Aparicio MD 09/13/2017, NESS SUPPORT ASSOCIATE documented in this encounter Plan of Treatment Not on filedocumented as of this encounter Visit Diagnoses Diagnosis Occipital headache - Primary Headache Spondylosis of cervical region without m yelopathy or radiculopathy ([facility]) Cervical spondylosis without myelopathy documented in this encounter Care Teams Furniture Inspector Relationship Specialty Start Date End Date Needs Pcp, Assignment PCP - General 04/24/14 [place] [address] documented as of this encounter
--- OUTSIDE RECORDS SUMMARY | 2022-08-03 21:32 | XMS_ITS | Encounter Summary ---
:1975 Author Organization [facility] Address [address] [place] [address] Care Team Providers Name Role Phone Needs Pcp, Assignment Primary Care Provider Reason for Referral Procedure/Equipment (Routine) - Incomplete Specialty Diagnoses / Procedures Referred By Contact Refer red To Contact Diagnoses Occipital neuralgia of left side 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) Dakota Aparicio MD Procedures MR Cervical Spine W/WO IV Cont MR Cervical Spine WO IV Cont MR Cervical Spine W/WO IV Cont MR Cervical Spine WO IV Cont [address] [place], [place] [address] Referral ID Status Reason Start Date Expiration Date Visits V isits Requested Authorized [id number] Incomplete 11/01/2017 01/31/2019 1 1 GER VAN Procedure/Equipment (Routine) - Incomplete Specialty Diagnoses / Procedures Referred By Contact Refer red To Contact Diagnoses Occipital neuralgia of left side 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) Dakota Aparicio MD Procedures MR Brain W/WO IV Cont MR Brain WO IV Cont [address] [place], [place] [address] Referral ID Status Reason Start Date Expiration Date Visits V isits Requested Authorized [id number] Incomplete 11/01/2017 01/31/2019 1 1 GER VAN Consult/Transfer Care (Routine) - Discharged Specialty Diagnoses / Procedures Referred By Contact Refer red To Contact Diagnoses Occipital neuralgia of left side 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) Occipital headache Dakota Aparicio MD [address] [place] [phone] Referral ID Status Reason Start Date Expiration Date Visits V isits Requested Authorized [id number] Discharged 11/01/2017 01/31/2019 1 1 Scheduling Instructions Your physician has recommended that you make an appointment with [facility] To schedule your [facility] appointment, please call [phone]. [facility] specializes in the non-surgical liz atment of chronic neck and back pain. At [facility], physicians and physical therapists work with patients to strengthen and recondition muscles that support the spi ne, providing lasting pain relief. [facility] is a participating provider for most insuranc e plans. For specific coverage questions, please call the Member Services departme nt of your insurance plan. GER VAN Consult/Transfer Care (Routine) - Closed Specialty Diagnoses / Procedures Referred By Contact Refer red To Contact Diagnoses Occipital neuralgia of left side 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) Dakota Aparicio MD [address] [place] [phone] Referral ID Status Reason Start Date Expiration Date Visits Requ ested Visits Authorized [id number] Closed 11/01/2017 01/31/2019 1 1 Scheduling Instructions Your provider has recommended an appoint ment with Belia Barron. You may call [phone] to schedule your appoi ntment. If you do not schedule an appointment within the next 1 to 3 business days, we will call you to help arrange your appointment. We suggest you call your [email or web address] insurance [email or web address] about your coverage and benefits for this appointment. GER VAN Reason for Visit Reason Comments Follow-up Encounter Details Date Type Department Care Team Description 11/01/2017 Office Visit [facility] Dakota Aparicio MD [address] [place] [id number] Occipital neuralgia of left side (Primar y Dx); [address], [facility] R[facility] Spondylosis of cervical region without m yelopathy or radiculopathy; [place], [place] [address] Occipital headache [phone] Social History Tobacco Use Types Packs/Day Years [...] Sign Reading Time Taken Comments Blood Pressure 139/83 11/01/2017 12:15 PM MANAGER VAN Pulse 89 11/01/2017 12:15 PM MANAGER VAN Temperature - - Respiratory Rate 18 11/01/2017 12:15 PM MANAGER VAN Oxygen Saturation - - Inhaled Oxygen Concentration - - Weight - - Height - - Body Mass Index - - documented in this encounter Patient Instructions Patient InstructionsDakota Aparicio MD - 11/01/2017 12:10 PM CST 1. Cervical and Brain MRI 2. [facility] 3. Try increasing the topamax to 25mg in the AM, and 50mg in the PM. Can cause sedation, don't drivefeeling sedated or impaired. 4. Neurology referral 5. Follow-up in 2 weeks 6. Belfast 5/325mg - take 1/2 tab every other day 7. Future considerations: pain psychology GER VAN documented in this encounter Progress Notes Dakota Aparicio MD - 11/01/2017 12:10 PM CST Images from the original note were not included. Interventional Pain Follow-up Appointment Subjective: Vivek Echeverria is a 42 y.o. year-old female who is here today for follow-up. ON 10/11/17 we did anONB on the left side. This provided transient relief of occipital pain for several hours that day. The pain is unilateral on the left side. The next day the pain returned. Her pain overall fluctuates and is accompanied by occipital headaches which turns into migraines. Currently she has low-grade pain; she didn't have any pain yesterday. The pain seems to occur with movement, and in particular, it occurs with her job which requires long hours of neck flexion. 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 Her overall pain symptomatology has been significantly interfering with her life, an d she feels depressed because she does not seem to be getting better. She has been using Imitrex 9-12 times a month, and a half a tab of Belfast about every other day. Whenang takes these medications, her pain is controlled. Overall, she feels that her symptoms are chronic yet stable. Taking the Topamax does help with her headaches. ROS: No radiation down her arms No fevers No chills Sometimes feels fuzzy without Belfast. No weakness or numbness No neurological deficits No weakness slurred speech or confusion ? Pertinent Medications:?? Belfast up to 1/2 tab a day - last dose 2 days ago Topamax 50mg QHS Imitrex 25mg PRN - 1-2 times a month 50mg QHS elavil?? Medications poorly tolerated in the past None [...] not sure if this is helping. ? Cervical epidural 05/22/15 Physical Therapy: Has gone to 8 sessions of physical therapy ? (For women) She denies any chance of and is not attempting to get . ? Opioid functional assessment and risk assessment: ?? The patient states she??is??currently taking narcotics for pain ?? The patient states opioids do??increase her??level of function. ?? She??uses opioids to do activities such as work ?? Personal review of [place] Prescription Monitoring System,??and any other available, pertinent states, reveals: The patient's controlled substance filling history is??consistent with the medications and history mentioned above; there ??are not??red flags or concerning behavior. ? The patient is??driving ?? She??does not drive while feeling sedated or impaired from medications ?? She??is aware that there are liability implications if driving while impaired by any medication. ? Current Medications: Outpatient Medications Prior to Visit Medication Sig Dispense Refill ??? amitriptyline (ELAVIL) 25 MG tablet Take 1 Tab by mouth every evening. 90 Tab 3 ??? diclofenac (VOLTAREN) 1 % gel Apply 1-2 grams to affected area 4 times a day for pain relief. 100 g 3 ??? estrogens, esterified,-methyltestosterone (ESTRATESTH.S.) 0.625-1.25 MG tablet Take 1 Tab by mouth daily. ??? medroxyPROGESTERone (PROVERA) 5 MG tablet Take [...] (pain). (Patient not taking: Reported on 11/01/2017) 60 Tab 0 ??? topiramate (TOPAMAX) 25 MG tablet Take 3 Tabs by mouth daily at bedtime. 90 Tab 3 ??? HYDROcodone-acetaminophen (NORCO) 5-325 MG tablet Take 1 Tab by mouth two times daily as needed for Pain. 45 Tab 0 No facility-administered medications prior to visit. Objective BP 139/83 Pulse 89 Resp 18 Estimated body mass index is 20.63 kg/(m^2) as calculated from the following: Height as of 10/5/17: 1.816 m (5' 11.5). Weight as of 08/04/17: 68 kg (150 lb). Appearance: Grooming: appropriate Level of Distress: NAD Assistive Devices: none Physical Exam: General: No apparent distress HEENT: Pupils equal and round, nasopharynx clear Resp: Non-labored breathing Psych: Oriented; appropriate affect and insight, non-pressured speech Neuromuscular Exam: TTP in the left occipital region CN II - XII intact bilaterally AAO X 3 Speech normal Assessment: Vivek is a 42 y.o. year-old female with: ICD-10-CM 1. Occipital neuralgia of left side M54.81 MR Cervical Spine WO IV Cont MR Brain WO IV Cont Neurology Consult-Adults HYDROcodone-acetaminophen (NORCO) 5-325 MG tablet [facility] 2. Spondylosis of cervical region without myelopathy or radiculopathy ([facility]) M47.812 MR Cervical Spine WO IV Cont MR Brain WO IV Cont Neurology Consult-Adults HYDROcodone-acetaminophen (NORCO) 5-325 MG tablet [facility] 3. Occipital headache R51 HYDROcodone-acetaminophen (NORCO) 5-325 MG tablet [facility] Vivek is a 41 y.o. year-old female with chronic left-sided cervicogenic neck pain and occipital headaches. She has overlapping chronic headaches and migraines. Has done multiple interventions - cervical RFA, occipital nerve block, cervical epidural - without convincing relief. Given the headache component, would like to get a baseline brain MRI and have her see neurology as she is using imitrex 9-12 times a month. I have a concern for rebound headaches. Another possibility would be AA joint arthritis. At this point, we are to make some modifications to her Topamax, get set up with [facility], and we will also get an updated cervical MRI. In terms of opioids, I told this is not a long-term strategy, I will refill 30 tabs she continues tohave a tab every other day. My long-term concern would be dependence and rebound headaches. Plan: 1. Cervical and Brain MRI 2. [facility] 3. Try increasing the topamax to 25mg in the AM, and 50mg in the PM. Can cause sedation, don't drivefeeling sedated or impaired. 4. Neurology referral 5. Follow-up in 2 weeks 6. Belfast 5/325mg - take 1/2 tab every other day Dakota Aparicio MD 11/01/2017, TIME SPENT: 40 minutes including [id number] time counseling her about her diagnosis and treatment options DECISION-MAKING: The level of decision-making in this case is high/complex due to the complexity of medical problems, acute/chronic pain, opioid analgesia issues, and behavioral factors. GER VAN Erin Askew RN - 11/01/2017 12:10 PM CST Patient here for follow up. Patient rates pain in neck, 5/10 at rest, 6/10 with activity. GER VAN Erin Askew RN - 11/01/2017 12:10 PM CST Images from the original note were not included. 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's follow up GER VAN documented in this encounter Plan of Treatment Scheduled Referrals Name Type Priority Associated Diagnoses [facility] Referral Routine Occipital neuralgia of Order ed: 11/01/2017 Consult-Adults left side Spondylosis of cervical region without myelopathy or radiculopathy [facility] Referral Routine Occipital neuralgia o f Ordered: 11/01/2017 Back left side Spondylosis of cervical region without myelopathy or radiculopathy Occipital headache documented as of this encounter Results MR Cervical Spine W/WO IV Cont (02/02/2018 7:17 PM CDT) Anatomical Region Laterality Modality Spine, C-Spine, Neck, Vascular Magnetic Resonance Specimen (Source) Anatomical Collection Method Collection Time Re ceived Time Location / / Volume Laterality 02/02/2018 6:01 PM CDT Impressions 02/03/2018 6:43 AM CDT IMPRESSION: 1. No significant interval change when c ompared to 05/22/2015. 2. Degenerative changes and scoliosis wh ich appears similar to the previous study. 3. Indeterminate thyroid nodules on the left with the largest measuring approximately 1.9 x 0.8 x 1.7 cm in size which appears similar to the previous study. Consider follow-up thyroid ultrasound. Narrative 02/03/2018 6:43 AM CDT INDICATION: chronic neck pain ?? TECHNIQUE: ??MRI of the cervical spine w ith and without contrast, 8 mL GADOBUTROL 1 MMOL/ML IV SOLN. ? COMPARISON: 05/22/2015 FINDINGS: Prominent degenerative changes are seen involving the vertebral bodies and endplates at C6-C7. Patient appears scoliotic. No definite edema is seen within the bone marrow. Multilevel mild bulg es at T1-T2 through T3-T4. Multiple nodu les seen within the thyroid on the left. The largest measures approximately 1.9 x 0.8 x 1.7 cm in size and appears similar to the previous study. The thyroid is not well seen on this study. Axial C2-C3: Unremarkable. C3-C4: Disc osteophyte complex eccentric to the right, advanced hypertrophic changes involving the uncovertebral joint on the right, mild to moderate neural foramina narrowing on the right, no definite neural foramina narrowing on the left, m ild retrolisthesis and no evidence of significant central stenosis. Unchanged. C4-C5: Mild disc osteophyte complex, mil d retrolisthesis, mild to moderate neural foramina narrowing on the right, mild neural foramina on the left and no evidence of significant central stenosis. Unchanged. C5-C6: Disc osteophyte complex eccentric to the right, mild retrolisthesis, mild central stenosis, no definite neural foramina narrowing on the right and mild neural foramina narrowing on the left. Unchanged. C6-C7: Disc osteophyte complex eccentric to the right, prominent hypertrophic changes involving the uncovertebral joints, mild retrolisthesis mild flattening of the cord eccentric to the right, mild to moderate central stenosis, mild neural f oramina narrowing on the right and no definite neural foramina narrowing on the left. Unchanged. C7-T1: Unremarkable. Procedure Note Lucila Torrez MD - 02/03/2018 INDICATION: chronic neck pain TECHNIQUE: MRI of the cervical spine wit h and without contrast, 8 mL GADOBUTROL 1 MMOL/ML IV SOLN. COMPARISON: 05/22/2015 FINDINGS: Prominent degenerative changes are seen involving the vertebral bodies and endplates at C6-C7. Patient appears scoliotic. No definite edema is seen within the bone marrow. Multilevel mild bulges at T1-T2 through T3-T4. Multiple nodules seen wit hin the thyroid on the left. The largest measures approximately 1.9 x 0.8 x 1.7 cm in size and appears similar to the previous study. The thyroid is not well seen on this study. Axial C2-C3: Unremarkable. C3-C4: Disc osteophyte complex eccentric to the right, advanced hypertrophic changes involving the uncovertebral joint on the right, mild to moderate neural foramina narrowing on the right, no definite neural foramina narrowing on the left, mild ret rolisthesis and no evidence of significant central stenosis. Unchanged. C4-C5: Mild disc osteophyte complex, mil d retrolisthesis, mild to moderate neural foramina narrowing on the right, mild neural foramina on the left and no evidence of significant central stenosis. Unchanged. C5-C6: Disc osteophyte complex eccentric to the right, mild retrolisthesis, mild central stenosis, no definite neural foramina narrowing on the right and mild neural foramina narrowing on the left. Unchanged. C6-C7: Disc osteophyte complex eccentric to the right, prominent hypertrophic changes involving the uncovertebral joints, mild retrolisthesis mild flattening of the cord eccentric to the right, mild to moderate central stenosis, mild neural f oramina narrowing on the right and no definite neural foramina narrowing on the left. Unchanged. C7-T1: Unremarkable. IMPRESSION IMPRESSION: 1. No significant interval change when c ompared to 05/22/2015. 2. Degenerative changes and scoliosis wh ich appears similar to the previous study. 3. Indeterminate thyroid nodules on the left with the largest measuring approximately 1.9 x 0.8 x 1.7 cm in size which appears similar to the previous study. Consider follow-up thyroid ultrasound. Dakota Aparicio MD RAD MRI MR Brain W/WO IV Cont (02/02/2018 7:17 PM CDT) Anatomical Region Laterality Modality Head Magnetic Resonance Specimen (Source) Anatomical Collection Method Collection Time Re ceived Time Location / / Volume Laterality 02/02/2018 6:01 PM CDT Impressions 02/03/2018 6:35 AM CDT IMPRESSION: 1. Prominence to the pituitary which may be at the upper limits of normal. Consider follow-up MRI of the sella in 2-3 months. The MRI of the brain appears otherwise unremarkable. 2. Minimal inflammatory changes within t he mastoid air cells. Narrative 02/03/2018 6:35 AM CDT INDICATION: chronic headaches ?? TECHNIQUE: ??MRI of the head with and wi thout contrast using a tumor, 8 mL GADOBUTROL 1 MMOL/ML IV SOLN. COMPARISON: None. Findings: There is no definite evidence of an acute infarct or cytotoxic edema on the diffusion images. The ventricles appear normal in size. The pituitary appears prominent in size and measures approxi mately 1.1 cm in height. No definite sig nal abnormalities are seen involving the brain parenchyma. Normal flow voids are seen within the major arterial and venous structures. Mild mucosal membrane thick ening is seen within the paranasal sinus es. Mild inflammatory changes within the mastoid air cells. There is mild under pneumatization of the inferior mastoid air cells. Probable tiny mucous retention c yst within the nasopharynx. Few probable small incidental arachnoid granulations noted within the posterior fossa. The post contrast images appear unremarkable. Procedure Note Lucila Torrez MD - 02/03/2018 INDICATION: chronic headaches TECHNIQUE: MRI of the head with and with out contrast using a tumor, 8 mL GADOBUTROL 1 MMOL/ML IV SOLN. COMPARISON: None. Findings: There is no definite evidence of an acute infarct or cytotoxic edema on the diffusion images. The ventricles appear normal in size. The pituitary appears prominent in size and measures approximately 1.1 cm in height. No definite signal abnormalities are seen involving the brain parenchyma. Normal flow voids are seen within the major arterial and venous structures. Mild mucosal membrane thickening is seen within the paranasal sinuses. Mild inflammatory jemima nges within the mastoid air cells. There is mild under pneumatization of the inferior mastoid air cells. Probable tiny mucous retention cyst within the nasopharynx. Few probable small incidental arachnoid granulations noted within the posterior fossa. The post contrast images appear unremarkable. IMPRESSION IMPRESSION: 1. Prominence to the pituitary which may be at the upper limits of normal. Consider follow-up MRI of the sella in 2-3 months. The MRI of the brain appears otherwise unremarkable. 2. Minimal inflammatory changes within t he mastoid air cells. Dakota Aparicio MD RAD MRI documented in this encounter Visit Diagnoses Diagnosis Occipital neuralgia of left side - Prima ry Spondylosis of cervical region without m yelopathy or radiculopathy ([facility]) Cervical spondylosis without myelopathy Occipital headache Headache Occipital neuralgia of left side Spondylosis of cervical region without m yelopathy or radiculopathy ([facility]) Cervical spondylosis without myelopathy documented in this encounter Care Teams Crown Buffer Relationship Specialty Start Date End Date Needs Pcp, Assignment PCP - General 04/24/14 [place] [address] documented as of this encounter
--- OUTSIDE RECORDS SUMMARY | 2022-08-03 21:32 | XMS_ITS | Encounter Summary ---
:1975 Author Organization [facility] Address [address], [place] [address] Care Team Providers Name Role Phone Needs Pcp, Assignment Primary Care Provider Reason for Visit Reason Comments QUESTIONS, GENERAL Encounter Details Date Type Department Care Team Description 03/08/2018 Telephone [facility] Dakota Aparicio MD QUESTIONS, GENERAL [address] [id number] [address] [place], [place] [phone] (Wo rk) Social History Tobacco Use Types [...] encounter Nursing Notes Erin Askew RN - 03/08/2018 10:51 AM CDT Called patient to let her know that since she did not follow the directions on how to take medication she will have to wait until 03/19/18 to fill. No answer, left message. Dakota Aparicio MD - 03/08/2018 10:02 AM CDT Could someone call the pharmacy and clarify the prescription. I suspect since the last prescription was written for a half a tab every other day, and it specified the prescription to last 30 days, thiswould count has an early refill. The full 30 days would add on March 19. I still want her to try the half a tablet every other day at this time. Dakota Aparicio MD 03/08/2018, 10:04 AM Chandler Baird - 03/08/2018 9:51 AM CDT I called Vivek to schedule her cervical MBB and she had a few questions from her appt yesterday. First, she cannot remember who she was to see for a 2nd opinion prior to the RFA. She believes Dr. Aparicio mentioned another doctor's name other than the pain psychologist. Second, she states that the wayher [place] refill was written, it cannot be refilled until 03/19. Please advise, thanks. documented in this encounter Plan of Treatment Not on filedocumented as of this encounter Visit Diagnoses Not on filedocumented in this encounter Care Teams Burr Machine Operator Relationship Specialty Start Date End Date Needs Pcp, Assignment PCP - General 04/24/14 [place] [address] documented as of this encounter
--- OUTSIDE RECORDS SUMMARY | 2022-08-03 21:32 | XMS_ITS | Encounter Summary ---
:1975 Author Organization [facility] Address [address] [address] Care Team Providers Name Role Phone Needs Pcp, Assignment Primary Care Provider Reason for Visit Reason Comments Refill Encounter Details Date Type Department Care Team Description 02/11/2018 Refill [facility] Dakota Aparicio MD Refill [address] [address] [address] [place] [address] [phone] (Wo rk) Social History Tobacco Use Types [...] myelopathy documented in this encounter Care Teams Telegraph Lineman Relationship Specialty Start Date End Date Needs Pcp, Assignment PCP - General 04/24/14 [place] [address] documented as of this encounter
--- OUTSIDE RECORDS SUMMARY | 2022-08-03 21:32 | XMS_ITS | Encounter Summary ---
:1975 Author Organization [facility] Address [address] [place] [address] Care Team Providers Name Role Phone Needs Pcp, Assignment Primary Care Provider Reason for Visit Reason Onset Date Comments Pre-procedure Call 04/11/2017 Encounter Details Date Type Department Care Team Description 04/11/2017 Telephone [facility] Erin Askew RN Pre-procedure Call [address] [place], [place] [address] Social History Tobacco Use Types Packs/Day Years Used Date Smoking Tobacco: Never Smokeless Tobacco: Never Alcohol Use Standard Drinks/Week Comments No 0 (1 standard drink = 0.6 oz pure alcoho l) Sex Assigned at Date Recorded Not on file documented as of this encounter Nursing Notes Erin Askew RN - 04/11/2017 8:59 AM CDT Pre-procedure instructions called to Vivek Reviewed Medical & Surgical History & information below: Arrival Time: 1110 Non sedation pt: Nothing 2 hours prior to procedure, Light meal ok prior to that. Encouraged pt to take prescription medications with a sip of water as usual in am. Must have hook up driver home. Reminder if female age 50 or less will need a UPT if no hysterectomy. Wear loose fitting, comfortable clothing, no valuables (jewelry, etc). Bring photo ID & medical cards. documented in this encounter Plan of Treatment Not on filedocumented as of this encounter Visit Diagnoses Not on filedocumented in this encounter Care Teams Hot Plate Plywood Press Laborer Relationship Specialty Start Date End Date Needs Pcp, Assignment PCP - General 04/24/14 [place] [address] documented as of this encounter
--- OUTSIDE RECORDS SUMMARY | 2022-08-03 21:32 | XMS_ITS | Encounter Summary ---
:1975 Author Organization [facility] Address [address] [place] [address] Care Team Providers Name Role Phone Needs Pcp, Assignment Primary Care Provider Reason for Visit Reason Comments Follow-up Encounter Details Date Type Department Care Team Description 08/04/2017 Office Visit [facility] Dakota Aparicio MD [address] [place] [address] Spondylosis of cervical [address], [place] region without [place], [place] [address] radiculopathy [phone] Social History Tobacco Use Types Packs/Day Years [...] Sign Reading Time Taken Comments Blood Pressure 120/72 08/04/2017 8:27 AM CDT Pulse 64 08/04/2017 8:27 AM CDT Temperature - - Respiratory Rate 16 08/04/2017 8:27 AM CDT Oxygen Saturation - - Inhaled Oxygen Concentration - - Weight 68 kg (150 lb) 08/04/2017 8:27 AM CDT Height 181.6 cm (5' 11.5) 08/04/2017 8:27 AM CDT Body Mass Index 20.63 08/04/2017 8:27 AM CDT documented in this encounter Patient Instructions Patient InstructionsDakota Aparicio MD - 08/04/2017 8:10 AM CDT Images from the original note were not included. 1) Topamax - increase to 75mg at night. 2) Voltaren gel 1% - apply up to 4 times a day 3) Tizanidine 2-4mg twice a day as needed for neck pain - can cause sedation. 4) Dawson 5/325mg - take up to 1 tab twice a day as needed for pain relief. 5) Do not drive if feeling sedated or impaired while on the medication Follow-up in 3 weeks Tizanidine What is this drug used for? [...] taken, how much, and when it happened Opioid prescription: 1 in 5 people that [...] medications, in ALL states. As laws can jacket changer time, one should review the state government website to understand the laws governing driving while on prescription medications, such as opioids. Safe Storage of Opioids It is importance to maintain safe storage of controlled substances, and keep these medications locked and secured from family members or children. documented in this encounter Progress Notes Erin Askew RN - 08/04/2017 8:10 AM CDT Images from the original note were not included. PRECIPITATE WASHER for today's follow up Dakota Aparicio MD - 08/04/2017 8:10 AM CDT Interventional Pain Follow-up Appointment Subjective: Vivek Echeverria is a 42 y.o. year-old female who is here today for follow-up. She is s/p a cervicalRFA on 07/21/17 on the left side. Has ongoing pain in the left neck. The pain has not necessarily increased since the procedure, it just has not improved significantly. She has no pain going down her arms. Notably, her headaches have been better, but she attributes this to starting Topamax. Pertinent Medications: Dawson was taking 2 tabs a day - ran out yesterday. ??Topamax 50mg at night Imitrex 25mg PRN - 3 times a month Medications poorly tolerated in the past None noted ?? Previous Medications: Gabapentin (didn't like the cognitive side effects), Cymbalta, mobic, Tylenol, aspirin, Celebrex, Voltaren, Aleve, ibuprofen, Robaxin, Flexeril, tizanidine, tramadol (didn't like how it made her feels)Lyrica, elavil. ?? Procedures: Cervical facet joint injection at C2/3 01/12/17. Had relief during the local anesthetic phase (8->12/10), but no relief during the steroid phase. Trigger point injections - no help. ?? Physical Therapy: Has gone to 8 sessions of physical therapy over the past 2 months. ? (For women) She denies any chance of and is not attempting to get . ? Opioid functional assessment and risk assessment: ?? The patient states she is currently taking narcotics for pain ?? The patient states opioids do increase her level of function. ?? She uses opioids to do activities such as work ?? Personal review of [facility] Prescription Monitoring System, and any other available, pertinent states, reveals: The patient's controlled substance filling history is consistent with the medicationsand history mentioned above; there are not red flags or concerning behavior. ? The patient is driving ?? She does not drive while feeling sedated or impaired from medications ?? She is aware that there are liability implications if driving while impaired by any medication. ?? Psychosocial Factors: Reports No issues with depression Reports issues with anxiety Denies any suicidal or homicidal ideation. The patient has seen a behavorial health specialist before. ?? Smoking: None Alcohol: None Personal history of substance abuse: None Family history of substance abuse: Alcoholism. There is not pending litigation related to the presenting pain condition. [...] by mouth as needed for Migraine. ??? DULoxetine (AKA CYMBALTA) 30 MG capsule Take 1 capsule by mouth daily (every 24 hours). 30mg daily X 7 days, then 60mg thereafter. 60 capsule 3 ??? HYDROcodone-acetaminophen (NORCO) 5-325 MG tablet Take 1 Tab by mouth daily as needed for Pain. 21 Tab 0 ??? topiramate (TOPAMAX) 25 MG tablet TAKE 2 TABLETS BY MOUTH DAILY AT BEDTIME 60 Tab 0 No facility-administered medications prior to visit. Objective BP 120/72 Pulse 64 Resp 16 Ht 1.816 m (5' 11.5) Wt 68 kg (150 lb) BMI 20.63 kg/m2 Estimated body mass index is 20.63 kg/(m^2) as calculated from the following: Height as of this encounter: 1.816 m (5' 11.5). Weight as of this encounter: 68 kg (150 lb). Appearance: Grooming: appropriate Level of Distress: NAD Assistive Devices: none Physical Exam: General: No apparent distress HEENT: Pupils equal and round, nasopharynx clear Resp: Non-labored breathing Psych: Oriented; appropriate affect and insight, non-pressured speech Neuromuscular Exam: TTP in left axial neck No signs of infection Pain with range of motion of her neck. Assessment: Vivek is a 42 y.o. year-old female with: ICD-10-CM 1. Spondylosis of cervical region without myelopathy or radiculopathy ([facility]) M47.812 HYDROcodone-acetaminophen (NORCO) 5-325 MG tablet topiramate (TOPAMAX) 25 MG tablet tiZANidine (ZANAFLEX) 2 MG tablet Status post cervical RFA left side TON C 34. I would give this several more weeks to recover. Today we discussed medication options for her symptomatology. Risks and side effects were discussed. I did refill her Dawson, gave her a three- week supply until she follows up with me in clinic. Hopefully by that time she will be improving in her symptoms. Plan: 1) Topamax - increase to 75mg at night. 2) Voltaren gel 1% - apply up to 4 times a day 3) Tizanidine 2-4mg twice a day as needed for neck pain - can cause sedation. 4) Dawson 5/325mg - take up to 1 tab twice a day as needed for pain relief. 5) Do not drive if feeling sedated or impaired while on the medication Dakota Aparicio MD 08/04/2017, documented in this encounter Plan of Treatment Not on filedocumented as of this encounter Visit Diagnoses Diagnosis Spondylosis of cervical region without m yelopathy or radiculopathy ([facility]) Cervical spondylosis without myelopathy documented in this encounter Care Teams Security Support Analyst Relationship Specialty Start Date End Date Needs Pcp, Assignment PCP - General 04/24/14 [place] [address] documented as of this encounter
--- OUTSIDE RECORDS SUMMARY | 2022-08-03 21:32 | XMS_ITS | Encounter Summary ---
:1975 Author Organization [employer] Address [address] [place] [address] Care Team Providers Name Role Phone Needs Pcp, Assignment Primary Care Provider Reason for Visit Reason Onset Date Comments Pre-procedure Call 05/19/2017 Encounter Details Date Type Department Care Team Description 05/19/2017 Telephone [facility] Lucy Albrecht, Pre-procedure Call [address] [facility] [address] [place], [place] [address] Social History Tobacco Use Types Packs/Day Years Used Date Smoking Tobacco: Never Smokeless Tobacco: Never Alcohol Use Standard Drinks/Week Comments No 0 (1 standard drink = 0.6 oz pure alcoho l) Sex Assigned at Date Recorded Not on file documented as of this encounter Nursing Notes Lucy Albrecht, RN - 05/19/2017 9:14 AM CDT Pre-procedure instructions called to pt Reviewed Medical & Surgical History & information below: Arrival Time: 1010 Non sedation pt: Nothing 2 hours prior to procedure, Light meal ok prior to that. Sedation Pt: NPO solids 6 hours prior with Clear liquids up to 2 hours prior to procedure. Nothing for 2 hours prior. Encouraged pt to take prescription medications with a sip of water as usual in am. 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 Reviewed NSAID use with patient: (Cervical RANJEET, Stellate, LSB ONLY) Last Dose Blood thinners (RANJEET, RFA, Stellate, LSB only):no Currently on Antibiotics? no Flu Shot/Vaccines within [...] on filedocumented in this encounter Care Teams Hand Bulldozer Relationship Specialty Start Date End Date Needs Pcp, Assignment PCP - General 04/24/14 [place] [address] documented as of this encounter
--- OUTSIDE RECORDS SUMMARY | 2022-08-03 21:32 | XMS_ITS | Encounter Summary ---
:1975 Author Organization [facility] Address [address], [place] [address] Care Team Providers Name Role Phone Needs Pcp, Assignment Primary Care Provider Reason for Visit Reason Comments Refill Encounter Details Date Type Department Care Team Description 01/11/2018 Refill [facility] Dakota Aparicio MD Refill [address] [address] [address] [place] [address] [phone] (Wo rk) Social History Tobacco Use Types [...] myelopathy documented in this encounter Care Teams Recorder Of Deeds Relationship Specialty Start Date End Date Needs Pcp, Assignment PCP - General 04/24/14 [place] [address] documented as of this encounter
--- OUTSIDE RECORDS SUMMARY | 2022-08-03 21:32 | XMS_ITS | Encounter Summary ---
:1975 Author Organization [employer] Address [address] [address] Care Team Providers Name Role Phone Needs Pcp, Assignment Primary Care Provider Reason for Visit Reason Onset Date Comments PAIN, NOS 05/06/2017 Encounter Details Date Type Department Care Team Description 05/06/2017 Telephone [facility] Dakota Aparicio MD PAIN, NOS [id number] [place] [address] [phone] (Wo rk) Social History Tobacco Use Types Packs/Day Years Used Date Smoking Tobacco: Never Smokeless Tobacco: Never Alcohol Use Standard Drinks/Week Comments No 0 (1 standard drink = 0.6 oz pure alcoho l) Sex Assigned at Date Recorded Not on file documented as of this encounter Nursing Notes Dakota Aparicio MD - 05/06/2017 1:04 PM CDT I called to leave a message with Vivek - I did not get an answer so I left a message. Our plan was to proceed with a cervical medial branch block, but she wasn't able to make it for the last 2 appointments. At this point I would start with tylenol 1000mg three times a day, OTC topical lidocaine, and ice the area. I will be out of town next week, but she can schedule an appointment with me when I getback (OK to overbook on Tuesday afternoon if needed), or she could see Dr. Geiger with medical spine,with whom she also has established care with. Dakota Aparicio MD 05/06/2017, 1:08 PM Lila Garcia RN - 05/06/2017 11:45 AM CDT Patient called stating she is in a lot of pain. The Topamax is helping her migraines but not her neck pain. She is wondering what she can do. documented in this encounter Plan of Treatment Not on filedocumented as of this encounter Visit Diagnoses Not on filedocumented in this encounter Care Teams Computer Support Specialist Relationship Specialty Start Date End Date Needs Pcp, Assignment PCP - General 04/24/14 [place] [address] documented as of this encounter
--- OUTSIDE RECORDS SUMMARY | 2022-08-03 21:32 | XMS_ITS | Encounter Summary ---
:1975 Author Organization [facility] Address [address], [place] [address] Care Team Providers Name Role Phone Needs Pcp, Assignment Primary Care Provider Reason for Visit Reason Comments Post Visit Follow Up Phone Call Encounter Details Date Type Department Care Team Description 03/29/2018 Telephone [facility] Leyla Mendez RN Post Visit Follow Up [address] [facility] [employer] Phone Call [place], [place] [address] Social History Tobacco Use Types [...] filedocumented in this encounter Care Teams Behavioral Health Director Relationship Specialty Start Date End Date Needs Pcp, Assignment PCP - General 04/24/14 [place] [address] documented as of this encounter
--- OUTSIDE RECORDS SUMMARY | 2022-08-03 21:32 | XMS_ITS | Encounter Summary ---
:1975 Author Organization [facility] Address [address] [place] [address] Care Team Providers Name Role Phone Needs Pcp, Assignment Primary Care Provider Reason for Visit Reason Comments HEADACHE Encounter Details Date Type Department Care Team Description 10/25/2017 Telephone [facility] Dakota Aparicio MD HEADACHE [address] [place] [address] [phone] (Wo rk) Social History Tobacco Use Types [...] encounter Nursing Notes Erin Askew RN - 10/25/2017 1:53 PM CST Images from the original note were not included. Patient called in as she is having a lot of occipita nerve pain. Is doing Elavil at night as instructed last office visit, helping at night, but headache pain is so bad during the day patient reportsshe feels life is on hold due to pain and is unsure what to do, is wanting other options besides ONBas ONB from 10/11/17 only lasted 1 day. Patient also requesting refill on Viola. Spoke with Dr. Aparicio who instructed that patient be seen in ER if continues to have headaches, will send refill request through to Dr Aparicio. Per Dr. Aparicio patient to schedule follow up with him next week. Called patient instructed her per Dr. Aparicio's response. Patient verbalized understanding. Patient transferred to [facility] to schedule follow up visit with Dr. Aparicio. BUILDER documented in this encounter Plan of Treatment Not on filedocumented as of this encounter Visit Diagnoses Diagnosis Spondylosis of cervical region without m yelopathy or radiculopathy ([facility]) Cervical spondylosis without myelopathy Occipital headache Headache documented in this encounter Care Teams Shaft Sinker Relationship Specialty Start Date End Date Needs Pcp, Assignment PCP - General 04/24/14 [place] [address] documented as of this encounter
--- OUTSIDE RECORDS SUMMARY | 2022-08-03 21:32 | XMS_ITS | Encounter Summary ---
:1975 Author Organization [facility] Address [address] [address] Care Team Providers Name Role Phone Needs Pcp, Assignment Primary Care Provider Reason for Visit Reason Onset Date Comments Refill 06/27/2017 [place] Encounter Details Date Type Department Care Team Description 06/27/2017 Refill [facility] Fawad Vera MD Refill ([place]) [address] [place] [address] [place] [address] [place] [address] [phone] (Wo rk) Social History Tobacco Use Types [...] documented as of this encounter Nursing Notes Kaity Naik RN - 06/27/2017 2:02 PM CDT Routing to Hallie, requesting medication refill today. Kaity Naik RN - 06/27/2017 12:06 PM CDT Pt calling, requesting [place]. Pain at 06/09. Had injection with pain clinic 06/07, ablation scheduled for 07/21/17. Last filled 05/27/17 #30. Called pt, LM asking if she can wait until Tuesday when Juanjo back if office, or if needing now. documented in this encounter Plan of Treatment Not on filedocumented as of this encounter Visit Diagnoses Not on filedocumented in this encounter Care Teams Lead Former Relationship Specialty Start Date End Date Needs Pcp, Assignment PCP - General 04/24/14 [place] [address] documented as of this encounter
--- OUTSIDE RECORDS SUMMARY | 2022-08-03 21:32 | XMS_ITS | Encounter Summary ---
:1975 Author Organization [facility] Address [address] [address] Care Team Providers Name Role Phone Needs Pcp, Assignment Primary Care Provider Reason for Visit Reason Onset Date Comments Post Visit Follow Up Phone Call 06/08/2017 Encounter Details Date Type Department Care Team Description 06/08/2017 Telephone [facility] Leyla Mendez RN Post Visit Follow Up [address] [address] [facility] [address] Phone Call [place], [place] [address] Social History Tobacco Use [...] on filedocumented in this encounter Care Teams Federal Appellate Clerk Relationship Specialty Start Date End Date Needs Pcp, Assignment PCP - General 04/24/14 [place] [address] documented as of this encounter
--- OUTSIDE RECORDS SUMMARY | 2022-08-03 21:32 | XMS_ITS | Encounter Summary ---
:1975 Author Organization [facility] Address [address], [place] [address] Care Team Providers Name Role Phone Needs Pcp, Assignment Primary Care Provider Reason for Visit Reason Comments Refill Encounter Details Date Type Department Care Team Description 07/08/2017 Refill [facility] Dakota Aparicio MD Refill [address] [address] [address] [place] [address] [phone] (Wo rk) Social History Tobacco Use Types [...] myelopathy documented in this encounter Care Teams Nurse Epidemiologist Relationship Specialty Start Date End Date Needs Pcp, Assignment PCP - General 04/24/14 [place] [address] documented as of this encounter
--- OUTSIDE RECORDS SUMMARY | 2022-08-03 21:32 | XMS_ITS | Encounter Summary ---
:1975 Author Organization [facility] Address [address] [address] Care Team Providers Name Role Phone Needs Pcp, Assignment Primary Care Provider Reason for Visit Reason Onset Date Comments Refill 05/27/2017 [place] Encounter Details Date Type Department Care Team Description 05/27/2017 Refill [facility] Fawad Vera MD Refill ([place]) [address] [place] [address] [place] [address] [place] [address] [phone] (Wo rk) Social History Tobacco Use Types [...] encounter Nursing Notes Kaity Naik RN - 05/27/2017 3:03 PM CDT Walked script to [facility], pt informed. Kaity Naik RN - 05/27/2017 2:44 PM CDT Pt calling, requesting [place]. Pain at 8/10. Another injection scheduled with pain clinic 06/07, then ablation. Pt states she hasn't had a break from her pain. Routing to Juanjo to advise. [place] #30, 1 q6h pended. Pt would like to pickler helper script at [facility]. documented in this encounter Plan of Treatment Not on filedocumented as of this encounter Visit Diagnoses Not on filedocumented in this encounter Care Teams Employment Clerk Relationship Specialty Start Date End Date Needs Pcp, Assignment PCP - General 04/24/14 [place], [place] [address] documented as of this encounter
--- OUTSIDE RECORDS SUMMARY | 2022-08-03 21:32 | XMS_ITS | Encounter Summary ---
:1975 Author Organization [employer] Address [address] [place] [address] Care Team Providers Name Role Phone Needs Pcp, Assignment Primary Care Provider Reason for Visit Reason Onset Date Comments Pre-procedure Call 06/02/2017 Encounter Details Date Type Department Care Team Description 06/02/2017 Telephone [facility] Lucy Albrecht, Pre-procedure Call [address] [facility] RN [place], [place] [address] Social History Tobacco Use Types [...] encounter Nursing Notes Lucy Albrecht, RN - 06/02/2017 9:45 AM CDT Pre-procedure instructions called to pt Reviewed Medical & Surgical History & information below: Arrival Time:1010 Non sedation pt: Nothing 2 hours prior to procedure, Light meal ok prior to that. Sedation Pt: NPO solids 6 hours prior with Clear liquids up to 2 hours prior to procedure. Nothing for 2 hours prior. Encouraged pt to take prescription medications with a sip of water as usual in am. 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 Reviewed NSAID use with patient: (Cervical RANJEET, Stellate, LSB ONLY) Last Dose- Indocin Blood thinners (RANJEET, RFA, Stellate, LSB only):no [...] on filedocumented in this encounter Care Teams Setter Juice Packaging Machines Relationship Specialty Start Date End Date Needs Pcp, Assignment PCP - General 04/24/14 [place] [address] documented as of this encounter
--- OUTSIDE RECORDS SUMMARY | 2022-08-03 21:32 | XMS_ITS | Encounter Summary ---
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) Dakota Aparicio MD Procedures FL C Arm 20 Pain Management [address] [place] [address] [phone] Referral ID Status Reason Start Date Expiration Date Visits V isits Requested Authorized [id number] Incomplete 03/29/2017 06/28/2018 1 1 Encounter Details Date Type Department Care Team Description 05/24/2017 Procedure Visit [facility] Dakota Aparicio MD [address] [place] [address] [id number] Procedure [address] [facility] 1, Tria Rad Joni [place], [place] [address] Social History Tobacco Use Types [...] Sign Reading Time Taken Comments Blood Pressure 112/81 05/24/2017 11:02 AM CDT Pulse 80 05/24/2017 11:02 AM CDT Temperature 36.6 ??C (97.8 ??F) 05/24/2017 10:14 AM CDT Respiratory Rate 18 05/24/2017 11:02 AM CDT Oxygen Saturation 100% 05/24/2017 11:02 AM CDT Inhaled Oxygen Concentration - - Weight 74.8 kg (165 lb) 05/24/2017 10:14 AM CDT Height 180.3 cm (5' 11) 05/24/2017 10:14 AM CDT Body Mass Index 23.01 05/24/2017 10:14 AM CDT documented in this encounter Patient Instructions Patient InstructionsErin Askew RN - 05/24/2017 10:10 AM CDT FOLLOW UP PLAN: You will follow up in the [facility] as discussed: call [phone] to arrange an appointment if you do [...] and Anesthesiologist Please contact the Pain Nurse ([phone]) for all medical/procedural questions regarding your care at the [facility] Please contact our Academic Support Center Director ([phone]) for all administrative/scheduling questions related to the [facility] Medication Requests: Prescriptions requiring refills must be requested from the prescribing physician. If Dr. Aparicio prescribed your medication, call the number above. If any other physician prescribed your medication, please contact his or her office to discuss. documented in this encounter Progress Notes Lucy Albrecht RN - 05/24/2017 10:10 AM CDT Patient here for Cervical MBB procedure. Patient rates pain in Neck that radiates to left side, 4/10at rest, 9/10 with activity. Verified NPO status. Pre-op teaching completed, patient verbalizes understanding. Consent per MD. Discharge per Kirti.Explained pain diary to pt Erin Askew RN - 05/24/2017 10:10 AM CDT Patient tolerated procedure well, vital signs stable. Post-procedure pain level 0/10 at rest, 0/10 with activity. Discharge instructions given (written & verbal review), patient verbalized understanding. 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 documented in this encounter Procedure Notes Dakota Aparicio MD - 05/24/2017 10:10 AM CDT Procedure: left, Cervical C-3,4, TON Medial Branch Block with Fluoroscopy Note: The cervical medial branch indicated above corresponds to the lateral mass of the vertebral body at the same level. Postprocedural Diagnosis: Cervical facet arthopathy Needle Type: 1.5 inch 25 gauge Contrast Dye - Isovue M200 0.2ml at each level (from a 10ml vial) Diagnostic Local Anesthetic - 0.3 ml of 0.5% bupivacaine injected at each target nerve Anesthesia - none IV Fluids - none Additional Medications Administered: none Estimated Blood Loss - <2 Drains: None Specimens Removed: None Urine Output - Not Measured Complications: None Outcome: Good VAS with extension before Injection: 9/10 VAS with extension 10 minutes after Injection: 0/10 Informed Consent: The patient's condition and proposed procedures, risks, and alternatives were discussed with the patient or responsible libertarian. The patient's / responsible libertarian's questions were answered. Risks include but not limited to infection, bleeding, nerve injury, increased pain, spinal cord injury, allergic reactions. The patient / responsible libertarian appeared to understand and chose to proceed. [...] nts FL C ARM 20 PAIN Routine 05/24/2017 10:51 Spondylosis of Resul ts for this MANAGEMENT AM CDT cervical region procedure ar e in without myelopathy or the re sults radiculopathy section. documented in this encounter Results FL C Arm 20 Pain Management (05/24/2017 10:51 AM CDT) Anatomical Region Laterality Modality Radiographic Imaging Specimen (Source) Anatomical Location Collection Method / Collectio n Time Received Time / Laterality Volume Narrative 05/24/2017 10:59 AM CDT Images obtained during surgical procedure. See procedure note in Epic on this date. Dakota Aparicio MD RAD FL documented in this encounter Visit Diagnoses Diagnosis Spondylosis of cervical region without m yelopathy or radiculopathy (HRC) Cervical spondylosis without myelopathy documented in this encounter Care Teams Fabrication Welder Relationship Specialty Start Date End Date Needs Pcp, Assignment PCP - General 04/24/14 [place], [place] [id number] documented as of this encounter
--- OUTSIDE RECORDS SUMMARY | 2022-08-03 21:32 | XMS_ITS | Encounter Summary ---
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) Dakota Aparicio MD Procedures MR Brain W/WO IV Cont MR Brain WO IV Cont [address] [place] [address] [phone] Referral ID Status Reason Start Date Expiration Date Visits V isits Requested Authorized [id number] Incomplete 11/01/2017 01/31/2019 1 1 Encounter Details Date Type Department Care Team Description 02/02/2018 [facility] Dakota Aparicio O ccipital neuralgia of left side; MRI MD Spondylosis of cervical region without m yelopathy or radiculopathy [id number] [place] [phone] (Wo rk) Social History Tobacco Use Types [...] documented as of this encounter Progress Notes Dakota Aparicio MD - 02/09/2018 10:47 AM CDT Results discussed with Vivek - essentially unremarkable with the brain MRI and unchanged with the cervical MRI. She stated that she does have thyroid ultrasounds schedule every 6 months for her thyroid gland. She is also going to discuss her brain MRI findings with the neurologist. Of note, she had 3months of no pain from 10/2017 to now. documented in this encounter Plan of Treatment Not on filedocumented as of this encounter Procedures Procedure Name Priority Date/Time Associated Diagnosis Comme nts MR BRAIN W/WO IV Routine 02/02/2018 7:17 PM Occipital neuralgi a of Results for this CONT CDT left side procedure are in Spondylosis of the results cervical region section. without myelopathy or radiculopathy MR CERVICAL SPINE Routine 02/02/2018 7:17 PM Occipital neuralg ia of Results for this W/WO IV CONT CDT left side procedure are in Spondylosis of the results cervical region section. without myelopathy or radiculopathy documented in this encounter Results MR Cervical Spine W/WO [...] Diagnoses Diagnosis Occipital neuralgia of left side Spondylosis of cervical region without m yelopathy or radiculopathy (HRC) Cervical spondylosis without myelopathy documented in this encounter Administered Medications Inactive Administered Medications - up to 3 most recent administrations Medication Order MAR Action Action Date Dose Rate Site gadobutrol (GADAVIST) 1 MMOL/ML Given 02/02/2018 6:45 PM CDT 8 m L injection 10 mL 10 mL, Intravenous, ONCE, On Malgorzata 02/02/18 at 1845, For 1 dose sodium chloride 0.9% injection 10-60 mL Given 02/02/2018 6:45 PM CDT 20 mL 10-60 mL, Intravenous, ONCE, On Malgorzata 02/02/18 at 1845, For 1 dose documented in this encounter Care Teams Radiological Technician Relationship Specialty Start Date End Date Needs Pcp, Assignment PCP - General 04/24/14 [place] [address] documented as of this encounter
--- OUTSIDE RECORDS SUMMARY | 2022-08-03 21:33 | XMS_ITS | Encounter Summary ---
:1975 Author Organization [facility] Address [address] [address] Care Team Providers Name Role Phone Needs Pcp, Assignment Primary Care Provider Reason for Visit Reason Onset Date Comments Pre-procedure Call 03/29/2017 Encounter Details Date Type Department Care Team Description 03/29/2017 Telephone [facility] Erin Askew RN Pre-procedure Call [address] [place], [place] [address] Social History Tobacco Use Types Packs/Day Years Used Date Smoking Tobacco: Never Smokeless Tobacco: Never Alcohol Use Standard Drinks/Week Comments No 0 (1 standard drink = 0.6 oz pure alcoho l) Sex Assigned at Date Recorded Not on file documented as of this encounter Nursing Notes Erin Askew, RN - 03/29/2017 2:47 PM CDT Pre-procedure instructions called to Vivek Reviewed Medical & Surgical History & information below: Arrival Time: 0750 Non sedation pt: Nothing 2 hours prior to procedure, Light meal ok prior to that. Encouraged pt to take prescription medications with a sip of water as usual in am. 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 Reviewed NSAID use with patient: (Cervical RANJEET ONLY) Last Dose NA Blood thinners (RANJEET & RFA only): Last Dose NA INR plan NA Currently on Antibiotics? NA Flu Shot/Vaccines within 7 days? NA Recent Steroid injection? NA If Diabetic is patient under good control? Recent BS? NA Reminder if female age 50 or less [...] on filedocumented in this encounter Care Teams Roll Winder Relationship Specialty Start Date End Date Needs Pcp, Assignment PCP - General 04/24/14 [place] [address] documented as of this encounter
--- OUTSIDE RECORDS SUMMARY | 2022-08-03 21:33 | XMS_ITS | Encounter Summary ---
:1975 Author Organization [facility] Address [address], [place] [address] Care Team Providers Name Role Phone Needs Pcp, Assignment Primary Care Provider Reason for Visit Reason Onset Date Comments Refill 02/15/2017 Encounter Details Date Type Department Care Team Description 02/15/2017 Refill [facility] Fawad Vera MD Refill [address] [facility] [address] [facility] [place] [address] [place], [place] [id number] (Wo rk) Social History Tobacco Use Types Packs/Day Years Used Date Smoking Tobacco: Never Smokeless Tobacco: Never Alcohol Use Standard Drinks/Week Comments No 0 (1 standard drink = 0.6 oz pure alcoho l) Sex Assigned at Date Recorded Not on file documented as of this encounter Nursing Notes Negar Hinton RN - 02/16/2017 9:31 AM CDT Spoke to pt, requesting to shredder picker 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 HYDROcodone-acetaminophen (NORCO) 5-325 MG tablet 40 Tab 0 02/16/2017 No ?? Sig - Route: Take 1-2 Tabs by mouth every 6 hours as needed for Pain. - Oral ?? Class: Print ?? Rigoberto Romna RN - 02/15/2017 11:48 AM CDT Pt last seen on 02/03/17 and per note, plan to discuss doing a radiofrequency ablation versus a sphenopalatine with Dr. Aparicio. I will call her with a treatment plan going forward. Pt is wondering if provider can give her a call. Pt is also requesting a refill on pain medication. Please approve or advise. documented in this encounter Plan of Treatment Not on filedocumented as of this encounter Visit Diagnoses Not on filedocumented in this encounter Care Teams Film Inspector Relationship Specialty Start Date End Date Needs Pcp, Assignment PCP - General 04/24/14 [place] [address] documented as of this encounter
--- OUTSIDE RECORDS SUMMARY | 2022-08-03 21:33 | XMS_ITS | Encounter Summary ---
:1975 Author Organization [facility] Address [address], [place] [address] Care Team Providers Name Role Phone Needs Pcp, Assignment Primary Care Provider Encounter Details Date Type Department Care Team Description 12/01/2016 Notes/Orders [facility] Fawad Geiger MD Neck pain (Primary Urgent Care [address] [place] [address] Dr Dx) [address] [place], [place] [address] [phone] (Wo rk) Social History Tobacco Use Types Packs/Day Years Used Date Smoking Tobacco: Never Smokeless Tobacco: Never Alcohol Use Standard Drinks/Week Comments No 0 (1 standard drink = 0.6 oz pure alcoho l) Sex Assigned at Date Recorded Not on file documented as of this encounter Plan of Treatment Not on filedocumented as of this encounter Visit Diagnoses Diagnosis Neck pain - Primary Cervicalgia documented in this encounter Care Teams Powder Press Operator Relationship Specialty Start Date End Date Needs Pcp, Assignment PCP - General 04/24/14 [place] [address] documented as of this encounter
--- OUTSIDE RECORDS SUMMARY | 2022-08-03 21:33 | XMS_ITS | Encounter Summary ---
:1975 Author Organization [facility] Address [address] [place] [address] Care Team Providers Name Role Phone Needs Pcp, Assignment Primary Care Provider Reason for Referral Consult/Transfer Care (Routine) - Closed Specialty Diagnoses / Procedures Referred By Contact Refer red To Contact Diagnoses Neck pain Fawad Geiger MD [address] [place] [address] Dr [place] [address] Referral ID Status Reason Start Date Expiration Date Visits Requ ested Visits Authorized [id number] Closed 02/16/2017 05/18/2018 1 1 Scheduling Instructions Your provider has recommended an appoint ment with [facility]. You may call [phone] to schedule your appoi ntment. If you do not schedule an appointment within the next 1 to 3 business days, we will call you to help arrange your appointment. We suggest you call your [facility] insurance company about your coverage and benefits for this appointment. Consult/Transfer Care (Routine) - Closed Specialty Diagnoses / Procedures Referred By Contact Refer red To Contact Diagnoses Neck pain Fawad Geiger MD [address] [place] [address] Dr [place] [address] Referral ID Status Reason Start Date Expiration Date Visits Requ ested Visits Authorized [id number] Closed 02/16/2017 05/18/2018 1 1 Scheduling Instructions Your provider has recommended an appoint ment with [facility]. You may call [phone] to schedule your appoi ntment. If you do not schedule an appointment within the next 1 to 3 business days, we will call you to help arrange your appointment. We suggest you call your [employer] insurance company about your coverage and benefits for this appointment. Encounter Details Date Type Department Care Team Description 02/16/2017 Notes/Orders [facility] Fawad Geiger MD Neck pain (Primary CENTER [address] [place] [address] Dr Dx) [address] [place], [place] [phone] (Wo rk) Social History Tobacco Use Types Packs/Day Years Used Date Smoking Tobacco: Never Smokeless Tobacco: Never Alcohol Use Standard Drinks/Week Comments No 0 (1 standard drink = 0.6 oz pure alcoho l) Sex Assigned at Date Recorded Not on file documented as of this encounter Plan of Treatment Scheduled Referrals Name Type Priority Associated Diagnoses Order S chedule PAIN CONSULT - ADULT Referral Routine Neck pain Ordered : 02/16/2017 PAIN CONSULT - ADULT Referral Routine Neck pain Ordered : 02/16/2017 documented as of this encounter Visit Diagnoses Diagnosis Neck pain - Primary Cervicalgia documented in this encounter Care Teams Medical Device Engineer Relationship Specialty Start Date End Date Needs Pcp, Assignment PCP - General 04/24/14 [place] [address] documented as of this encounter
--- OUTSIDE RECORDS SUMMARY | 2022-08-03 21:33 | XMS_ITS | Encounter Summary ---
:1975 Author Organization [facility] Address [address] [place] [address] Care Team Providers Name Role Phone Needs Pcp, Assignment Primary Care Provider Reason for Visit Reason Onset Date Comments Pre-procedure Call 01/10/2017 Encounter Details Date Type Department Care Team Description 01/10/2017 Telephone [facility] Leyla Mendez RN Pre-procedure Call [address] [place], [place] [address] Social History Tobacco Use Types [...] on filedocumented in this encounter Care Teams Spring Former Hand Relationship Specialty Start Date End Date Needs Pcp, Assignment PCP - General 04/24/14 [place] [address] documented as of this encounter
--- OUTSIDE RECORDS SUMMARY | 2022-08-03 21:33 | XMS_ITS | Encounter Summary ---
:1975 Author Organization [facility] Address [address], [place] [address] Care Team Providers Name Role Phone Needs Pcp, Assignment Primary Care Provider Reason for Referral Procedure/Equipment (Routine) - Incomplete Specialty Diagnoses / Procedures Referred By Contact Refer red To Contact Diagnoses Cervical radiculopathy Fawad Geiger MD Procedures FL C Arm 20 Pain Management [address] [place] [address] [place] [address] Referral ID Status Reason Start Date Expiration Date Visits V isits Requested Authorized [id number] Incomplete 11/25/2016 02/24/2018 1 1 [facility]DER OF DEEDS Reason for Visit Reason Onset Date Comments Orders Needed 11/25/2016 Encounter Details Date Type Department Care Team Description 11/25/2016 Telephone [facility] Fawad Geiger MD Orders Needed [address] [place] [address] [place] [address] [phone] (Wo rk) Social History Tobacco Use Types Packs/Day Years Used Date Smoking Tobacco: Never Smokeless Tobacco: Never Alcohol Use Standard Drinks/Week Comments No 0 (1 standard drink = 0.6 oz pure alcoho l) Sex Assigned at Date Recorded Not on file documented as of this encounter Nursing Notes Yolanda Cali RN - 11/25/2016 4:39 PM CST Order placed. RDER OF DEEDS Fawad Geiger MD - 11/25/2016 4:33 PM CST Provided with lab results, still having constant headache and neck pain. Will proceed with left C2-3facet injection as planned. Order placed. RDER OF DEEDS documented in this encounter Plan of Treatment Not on filedocumented as of this encounter Results FL C Arm 20 Pain Management (01/12/2017 11:42 AM CDT) Anatomical Region Laterality Modality Radiographic Imaging Specimen (Source) Anatomical Location Collection Method / Collectio n Time Received Time / Laterality Volume Narrative 01/13/2017 8:11 AM CDT Images obtained during surgical procedure. See procedure note in Epic on this date. Fawad Geiger MD RAD [place] documented in this encounter Visit Diagnoses Diagnosis Cervical radiculopathy - Primary Brachial neuritis or radiculitis nos Spondylosis of cervical region without m yelopathy or radiculopathy (HRC) - Primary Cervical spondylosis without myelopathy Cervical radiculopathy Brachial neuritis or radiculitis nos documented in this encounter Care Teams Stamp Pad Finisher Relationship Specialty Start Date End Date Needs Pcp, Assignment PCP - General 04/24/14 [place] [address] documented as of this encounter
--- OUTSIDE RECORDS SUMMARY | 2022-08-03 21:33 | XMS_ITS | Encounter Summary ---
:1975 Author Organization [facility] Address [address] [place] [id number] Care Team Providers Name Role Phone Needs Pcp, Assignment Primary Care Provider Reason for Referral Procedure/Equipment (Routine) - Incomplete Specialty Diagnoses / Procedures Referred By Contact Refer red To Contact Diagnoses 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) Dakota Aparicio MD Procedures [place] C Arm 20 Pain Management [address] [place] [address] 17 Referral ID Status Reason Start Date Expiration Date Visits V isits Requested Authorized [id number] Incomplete 03/29/2017 06/28/2018 1 1 Procedure/Equipment (Routine) - Incomplete Specialty Diagnoses / Procedures Referred By Contact Refer red To Contact Diagnoses 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) Dakota Aparicio MD Procedures FL C Arm 20 Pain Management [address] [place] [address] 17 Referral ID Status Reason Start Date Expiration Date Visits V isits Requested Authorized [id number] Incomplete 03/29/2017 06/28/2018 1 1 Reason for Visit Reason Comments CONSULT left occipital Consult/Transfer Care (Routine) - Closed Specialty Diagnoses / Procedures Referred By Contact Refer red To Contact Diagnoses Neck pain Fawad Geiger MD [address] [place], [place] [address] Referral ID Status Reason Start Date Expiration Date Visits Requ ested Visits Authorized [id number] Closed 02/16/2017 05/18/2018 1 1 Encounter Details Date Type Department Care Team Description 03/29/2017 Initial Consult [facility] Dakota Aparicio MD [address] [place] [id number] Spondylosis of [address] [facility] [address], Tria Rad Rn cervical region Drive without myelopathy or [place], [place] radiculopath y (Primary [address] Dx) [phone] Social History Tobacco Use Types Packs/Day Years Used Date Smoking Tobacco: Never Smokeless Tobacco: Never Alcohol Use Standard Drinks/Week Comments No 0 (1 standard drink = 0.6 oz pure alcoho l) Sex Assigned at Date Recorded Not on file documented as of this encounter Last Filed Vital Signs Vital Sign Reading Time Taken Comments Blood Pressure 117/83 03/29/2017 1:44 PM CDT Pulse 84 03/29/2017 1:44 PM CDT Temperature - - Respiratory Rate 18 03/29/2017 1:44 PM CDT Oxygen Saturation - - Inhaled Oxygen Concentration - - Weight 74.8 kg (165 lb) 03/29/2017 1:44 PM CDT Height 180.3 cm (5' 11) 03/29/2017 1:44 PM CDT Body Mass Index 23.01 03/29/2017 1:44 PM CDT documented in this encounter Patient Instructions Patient InstructionsDakota Aparicio MD - 03/29/2017 1:20 PM CDT 1) Will start topamax 25mg - follow instructions below. 2) Schedule for a left side medial branch block at C234 3) Stop the [place] 4) You can also take tylenol 1000mg three times a day 5) Living well consultation with Viky Fuentes Topeleuterio TOPIRAMATE (Topamax) 25 mg Morning Night Schedule 0 1 Day 1 - 7 0 2 Day 8 - onwards ?? Please review this entire sheet. It contains important information on: How to take this medication, side effects, precautions, drug interactions, what to do in an overdose, what do if a dose is missed and how to store the medication. ?? Increase the dose as instructed above only if you do not notice pain relief at a lower dose AND as long as you are not having side effects from the drug ?? If you notice pain relief at a lower dose, you do not need to continue increasing the dose. ?? If it is necessary to discontinue this drug, the dosage should be decreased the opposite way you started it. Do not stop taking this drug suddenly without your doctor's approval since there is a small, potential risk of withdrawal seizures. ?? Your health care provider may order certain labwork while you are on medication and adjust the dosage as needed ?? This can interfere with Control Uses This medication is used to treat seizure disorders (epilepsy). However, we are prescribing it to treat your neuropathic pain. How to Take this Medication This drug is taken by mouth, generally twice daily unless directed otherwise. Because of the bitter taste, do not chew or crush tablets. Your health care provider may gradually increase your dose to allow your body to adjust to the medication. To minimize side effects, take the very first dose at bedtime. Do not take this drug more often or increase your dose without consulting your health care provider. Your condition will not improve any faster but the risk of serious side effects may be increased. Do not stop taking this drug suddenly without your health care provider's approval since there is asmall, potential risk of withdrawal seizures. If it is necessary to discontinue this drug, the dosage should be decreased the opposite way you started it. In most instances, you will need to be on thismedication for at least 1 month in order to determine its ability or inability to relieve your pain. Side Effects Weakness, tiredness, drowsiness, dizziness, tingling sensations, loss of appetite and weight loss may occur. If these persist or worsen, notify your doctor promptly. Report promptly: unsteadiness, slowing or shakiness, speech problems, mental/mood changes, stomach/abdominal pain. Unlikely but report pr omptly: itching, shortness of breath, fever, persistent sore throat. Seek immediate medical attention if any of these rare but very serious eye problems occur: sudden vision change/blurred vision, eye pain or redness. The FDA issued new information on 2007, to alert health adult day care worker about an increased risk of suicidal thoughts and behaviors in patients who take this medication. The FDA found that patients taking antiepileptics have about twice the risk of suicidal thoughts andbehaviors, compared with patients receiving an inactive substance (placebo). This risk corresponds to an estimated 2.1 per 1,000 more patients in the drug treatment groups who experienced suicidality than in the placebo groups. Therefore, if you or a family member notice a change in your mood after starting or adjusting the dose of his medication, notify your health care provider right away. If you notice other effects not listed above, contact your health care provider or pharmacist. Precautions Before using this drug, tell your health care provider your medical history, including: allergies (especially drug allergies), kidney disease, liver disease, or glaucoma. Drink plenty of fluids to decrease the chance of kidney stones. Avoid alcohol intake as it may aggravate side effects. Caution performing tasks that require mental alertness (e.g., driving). This medication may cause a decrease in sweating and increased body temperature. This medication should be used only when clearly needed during . Discuss the risks and benefits with your health care provider. It is not known if this drug is excreted into breast milk. Consult your health care provider before breast-feeding. Interactions Tell your health care provider all prescription and nonprescription medication you may use, especially: phenytoin, carbamazepine, carbonic anhydrase inhibitors (e.g., acetazolamide). Also report drugs that can make you drowsy such as: sedatives, sleep medicines, psychiatric medications, narcotic pain relievers (e.g., codeine), certain antihistamines (e.g., diphenhydramine), anti-anxiety drugs, other anti-seizure drugs. This drug may interfere with the effectiveness of oral control medication. Discuss using other methods of control with your health care provider. Do not start or stop anymedicine without doctor or pharmacist approval. Overdose If overdose is suspected, contact your local poison control center or emergency room immediately. Missed Dose If you miss a dose, use it as soon as you remember. If it is near the time of the next dose, skip the missed dose and resume your usual dosing schedule. Do not double-up the dose to catch up. Storage Store at room temperature away from light and moisture. documented in this encounter Progress Notes Dakota Aparicio MD - 03/29/2017 1:20 PM CDT Images from the original note were not included. Interventional Pain Consult Note Chief complaint: Chief Complaint Patient presents with ??? CONSULT left occipital Referring Provider: Juanjo HPI: Vivek Echeverria is a pleasant 41 y.o. female with a past medical history of headaches and migraineswho was referred to the pain clinic for evaluation for axial neck pain and occipital headaches. She reports that 100 percent of her pain comes from this location. She has had this pain for about 1 year, and cannot related injury. The pain worsens with work and overactivity, and the pain improves laying down and medications. She describes it as a burning, aching, and pressure sensation. The pain is present about 75 percent of the time. She came off her [place] for about a week, and her headaches got pretty bad. Current pain score on a VAS is 6 / 10 Pain score on average is 7 / 10 Pain at its least is 3 / 10 Worst pain is 10 / 10 Pertinent ROS: denies weakness, denies numbness, denies bowel or bladder incontinence, denies symptoms of saddle anesthesia, denies fevers/chills/night sweats, denies unintentional weight loss. Imaging: Cervical MRI 05/22/2015 IMPRESSION: ?? 1. Posterior disc osteophyte complex effaces the ventral thecal sac eccentric to the right at the C6-C7 level. 2. Tiny right paracentral disc protrusion effaces the ventral thecal sac at the C5-C6 level. 3. Mild narrowing of the right C3-C4 neural foramen due to uncovertebral hypertrophy. 4. Mild degenerative disc disease with associated degenerative endplate changes at the C6-C7 level. 5. 0.8 cm x 1.9 cm cystic appearing mass within the left lobe of the thyroid gland is indeterminate on this examination. If clinically indicated, consider ultrasound for further evaluation. Pertinent Medications: [place] 1-3 tabs a day Medications poorly tolerated in the past None noted Previous Medications: Gabapentin (didn't like the cognitive side effects), Cymbalta, mobic, Tylenol, aspirin, Celebrex, Voltaren, Aleve, ibuprofen, Robaxin, Flexeril, tizanidine, tramadol (didn't like how it made her feels) Procedures: Cervical facet joint injection at C2/3 01/12/17. Had relief during the local anesthetic phase (8->12/10), but no relief during the steroid phase. Trigger point injections - no help. Physical Therapy: Has gone to 8 sessions of physical therapy over the past 2 months. (For women) She denies any chance of and is not attempting to get . Opioid functional assessment and risk assessment: ?? The patient states she is currently taking narcotics for pain ?? The patient states opioids do increase her level of function. ?? She uses opioids to do activities such as work ?? Personal review of [place] Prescription Monitoring System, and any other available, pertinent states, reveals: The patient's controlled substance filling history is consistent with the medicationsand history mentioned above; there are not red flags or concerning behavior. ?? The patient is driving ?? She does not drive while feeling sedated or impaired from medications ?? She is aware that there are liability implications if driving while impaired by any medication. Psychosocial Factors: Reports No issues with depression Reports issues with anxiety Denies any suicidal or homicidal ideation. The patient has seen a behavorial health specialist before. Smoking: None Alcohol: None Personal history of substance abuse: None Family history of substance abuse: Alcoholism. There is not pending litigation related to the presenting pain condition. Medications Outpatient Medications Prior to Visit Medication Sig Dispense Refill ??? DULoxetine (AKA CYMBALTA) 30 MG capsule Take 1 capsule by mouth daily (every 24 hours). 30mg daily X 7 days, then 60mg thereafter. 60 capsule 3 ??? HYDROcodone-acetaminophen (NORCO) 5-325 MG tablet Take 1-2 Tabs by mouth every 6 hours as neededfor Pain. 40 Tab 0 ??? ondansetron (ZOFRAN-ODT) 4 MG disintegrating tablet Take 4 mg by mouth every 8 hours as needed for Nausea. ??? SUMAtriptan (IMITREX) 25 MG tablet Take 25 mg by mouth as needed for Migraine. ??? gabapentin (AKA NEURONTIN) 300 MG capsule Take 300 mg by mouth three times a day. Reported on 01/12/2017 ??? tiZANidine (ZANAFLEX) 4 MG tablet Take 1 Tab by mouth every 8 hours as needed for Other (Muscle Spasms). 30 Tab 0 No facility-administered medications prior to visit. Past Medical History: Past Medical History: Diagnosis Date ??? Herniated disc, cervical (ACG) C6-C7 ??? Migraines ??? Trigger finger Past Surgical History: Past Surgical History: Procedure Laterality Date ??? LIPOSUCTION Family History: See above Social History: Social History Social History ??? Marital status: Single Spouse name: N/A ??? Number of children: N/A ??? Years of education: N/A Occupational History ??? Not on file. Social History Main Topics ??? Smoking status: Never Smoker ??? Smokeless tobacco: Never Used ??? Alcohol use No ??? Drug use: No ??? Sexual activity: Not on file Other Topics Concern ??? Caffeine Concern Yes 2 or more ??? Sleep Concern Yes ??? Exercise No Social History Narrative Allergies: No Known Allergies Review of Systems: ROS The following ROS were of reviewed with the patient (see list below). The patient denied the symptoms listed below with the exception of: Trouble falling asleep. Sleep: trouble falling asleep, snoring, sleep apnea ENT: history of aspiration, difficulty swallowing GI: blood in the stool, vomiting with blood, stomach bleeding, nausea, vomiting, constipation Neuro: dizziness, confusion, neck stiffness, severe headaches, migraines, blackouts, seizures Skin: body sores, open wounds Cardiac: chest pain, breathlessness, heart palpitations, heart arrhythmias, pacemaker Resp: wheezing, shortness of breath Endocrine: excessive thirst, elevated blood sugars : difficulty emptying bladder, urinary infection, kidney stones, kidney failure Heme: bleeding disorders, low platelets or low blood counts, blood clots, painful or swollen lymph nodes. Psych: Eloisa or history of psychosis Pertinent Labs/Test Results and Dates: No results found for: PLTS No results found for: CREATININE No results found for: HGBA1C Objective BP 117/83 Pulse 84 Resp 18 Ht 1.803 m (5' 11) Wt 74.8 kg (165 lb) BMI 23.01 kg/m2 Estimated body mass index is 23.01 kg/(m^2) as calculated from the following: Height as of this encounter: 1.803 m (5' 11). Weight as of this encounter: 74.8 kg (165 lb). Appearance: Grooming: appropriate Level of Distress: NAD Assistive Devices: none Physical Exam: General: No apparent distress Eyes: pupils equal and round ENT: nasopharynx clear, oropharynx clear Resp: Non-labored breathing Heart: Regular rate Abdomen: Non-distended Psych: Oriented; appropriate affect and insight, non-pressured speech Skin: No rashes or lesions appreciated on exposed skin Neuromuscular Exam: Upon initial assessment, the patient is seated in a comfortable position. Rises from a seated position without difficulty. Upon inspection there is not evidence of scoliosis. Exam for symmetry and allignment reveals no abnormalities. Muscle bulk appears adequate. There is not evidence of erythema, edema in the extremities. Palpation does not reveal midline cervical tenderness; There is cervical paraspinal tenderness leftregions. Trigger points were not identified. There is no pain with neck extension There is pain with neck oblique extension to the right There is pain with neck rotation to the right There is pain with neck oblique extension to the left There is pain with neck rotation to the left There is no pain with neck flexion Overall, there is not limited cervical ROM with secondary to pain. Spurling's test is negative on the right and negative on the left. Bellamy's test is negative bilaterally Range of motion is grossly intact at the shoulder, elbow, wrist, and thoracic spine. Motor strength exam reveals: Shoulder abduction R 5/5, L 5/5 Biceps flexion R 5/5, L 5/5 Triceps extension R 5/5, L 5/5 Wrist extension R 5/5, L 5/5 Wrist flexion R 5/5, L 5/5 Finger abduction R 5/5, L 5/5 Deep tendon reflexes: 2+ biceps, 2+ Triceps. Sensory exam is intact to light touch and sharp stimulation grossly in the upper extremities. Medical Decision Making Records Reviewed: ?? The report by Dr. Geiger dated 02/03/17 was reviewed. This was important and useful because the patient's history was corroborated in the reviewed note. ?? Imaging and lab values noted above were reviewed and are important for subsequent medical decision making. ?? Review of the Risk Comorbidities: At this juncture, I believe that the patient's use of opioids status adds high risk and complexity to the treatment plan Assessment: ICD-10-CM 1. Spondylosis of cervical region without myelopathy or radiculopathy ([facility]) M47.812 FL C Arm 20 PainManagement [place] C Arm 20 Pain Management topiramate (TOPAMAX) 25 MG tablet Vivek is a 41 y.o. year-old female with chronic left-sided cervicogenic neck pain. She does not have pain over the occipital region, it is on the high cervical axial region. She has no predominant radicular features. This could be cervical facet mediated pain. She has done extensive physical therapy without significant relief. Another possibility would be AA joint arthritis. At this point we are going to proceed with a left-sided cervical medial branch blocks at TON and C3 C4. In terms of medications, we are going to trial Topamax. I went over the risks and side effects to medications and included this in the after visit summary. At this point, we are going to try coming offthe [place] as I think this is a poor analgesic for chronic neck pain and headache. I do think getting Viky Fuentes on board with the [facility] consultation to supplement her treatment with pain coping strategies and relaxation techniques would be quite helpful. Plan: 1) Will start topamax 25mg - follow instructions below. 2) Schedule for a left side medial branch block at C234 3) Stop the [place] 4) You can also take tylenol 1000mg three times a day 5) [facility] with Viky Aparicio M.D. 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 See procedure note in Epic on this date. Dakota Aparicio MD RAD [facility] C Arm 20 Pain Management (05/24/2017 10:51 AM CDT) Anatomical Region Laterality Modality Radiographic Imaging Specimen (Source) Anatomical Location Collection Method / Collectio n Time Received Time / Laterality Volume Narrative 05/24/2017 10:59 AM CDT Images obtained during surgical procedure. See procedure note in Epic on this date. Dakota HUGHES [place] documented in this encounter Visit Diagnoses Diagnosis Spondylosis of cervical region without m yelopathy or radiculopathy ([facility]C) - Primary Cervical spondylosis without myelopathy Spondylosis of cervical region without m yelopathy or radiculopathy ([facility]) Cervical spondylosis without myelopathy Spondylosis of cervical region without m yelopathy or radiculopathy ([facility]C) Cervical spondylosis without myelopathy documented in this encounter Care Teams Trauma Counsellor Relationship Specialty Start Date End Date Needs Pcp, Assignment PCP - General 04/24/14 [place] [address] documented as of this encounter
--- OUTSIDE RECORDS SUMMARY | 2022-08-03 21:33 | XMS_ITS | Encounter Summary ---
:1975 [facility] Address [address] [address] Care Team Providers Name Role Phone Needs Pcp, Assignment Primary Care Provider Reason for Visit Reason Onset Date Comments Refill 01/12/2017 Encounter Details Date Type Department Care Team Description 01/12/2017 Refill [facility] Fawad Vera MD Refill [address] [place] [address] [place] [address] [phone] (Wo rk) Social History Tobacco Use Types Packs/Day Years Used Date Smoking Tobacco: Never Smokeless Tobacco: Never Alcohol Use Standard Drinks/Week Comments No 0 (1 standard drink = 0.6 oz pure alcoho l) Sex Assigned at Date Recorded Not on file documented as of this encounter Nursing Notes Yolanda Cali RN - 01/12/2017 12:50 PM CDT Patient provided with medications while in clinic. documented in this encounter Plan of Treatment Not on filedocumented as of this encounter Visit Diagnoses Not on filedocumented in this encounter Care Teams Wire Welder Relationship Specialty Start Date End Date Needs Pcp, Assignment PCP - General 04/24/14 [place] [address] documented as of this encounter
--- OUTSIDE RECORDS SUMMARY | 2022-08-03 21:33 | XMS_ITS | Encounter Summary ---
:1975 Author Organization [facility] Address [address] [place] [address] Care Team Providers Name Role Phone Needs Pcp, Assignment Primary Care Provider Reason for Visit Reason Comments Procedure neck pain Procedure/Equipment (Routine) - Incomplete Specialty Diagnoses / Procedures Referred By Contact Refer red To Contact Diagnoses Cervical radiculopathy Fawad Geiger MD Procedures FL C Arm 20 Pain Management [address] [place] [address] ERIN Brown 5543 1 Referral ID Status Reason Start Date Expiration Date Visits V isits Requested Authorized [id number] Incomplete 11/25/2016 02/24/2018 1 1 Encounter Details Date Type Department Care Team Description 01/12/2017 Procedure Visit [facility] Fawad Geiger MD [address] [facility] ERIN Brown [id number] Procedure (neck [address] [facility] Dakota Aparicio MD [address] [place] [address] pain) [place], Tria Rad Rn [id number] Social History Tobacco Use Types Packs/Day Years Used Date Smoking Tobacco: Never Smokeless Tobacco: Never Alcohol Use Standard Drinks/Week Comments No 0 (1 standard drink = 0.6 oz pure alcoho l) Sex Assigned at Date Recorded Not on file documented as of this encounter Last Filed Vital Signs Vital Sign Reading Time Taken Comments Blood Pressure 126/85 01/12/2017 11:52 AM CDT Pulse 64 01/12/2017 11:52 AM CDT Temperature 36.8 ??C (98.3 ??F) 01/12/2017 11:07 AM CDT Respiratory Rate 18 01/12/2017 11:52 AM CDT Oxygen Saturation 100% 01/12/2017 11:52 AM CDT Inhaled Oxygen Concentration - - Weight 75.3 kg (166 lb) 01/12/2017 11:07 AM CDT Height 180.3 cm (5' 11) 01/12/2017 11:07 AM CDT Body Mass Index 23.15 01/12/2017 11:07 AM CDT documented in this encounter Patient Instructions Patient InstructionsAnahi Barnes RN - 01/12/2017 11:05 AM CDT FOLLOW UP PLAN: Please follow up with Dr. Fawad Geiger in 10-14 days; call [phone] to schedule an appointment if you do not already have one. Facet Injection Post-Procedure Instructions: ?? Rest today, you may resume your normal activities tomorrow (Physical Therapy & laboratory animal caretaker can also be resumed next [...] fall off, no need to replace. ?? After a few hours the numbing (anesthetic) will wear off and pain may return. It often takes about 3-10 days for the steroid to reach full effect, as a result you may not notice any significant decrease in pain for a week or more ?? You may experience the following symptoms which are NORMAL ?? up to 6 hours after your injection: ?? Warmth ?? Tingling ?? Heaviness ?? Numbness ?? Can last a day or 2 post injection ?? Flushing in face ?? Insomnia/difficulty sleeping If the symptoms last more than 12 hours, call the doctor Dr. Dakota Aparicio MD Interventional Pain Physician and Anesthesiologist Please contact the Pain Nurse ([phone]) for all medical/procedural questions regarding your care at the [facility] Please contact [place] ([phone]) for all administrative/scheduling questions related to the [facility] Medication Requests: Prescriptions requiring refills must be requested from the prescribing physician. If Dr. Aparicio prescribed your medication, call the number above. If any other physician prescribed your medication, please contact his or her office to discuss. documented in this encounter Progress Notes Lila Garcia RN - 01/12/2017 11:59 AM CDT Patient tolerated procedure well, vital signs stable. Post-procedure pain level 2/10 at rest, 2/10 with activity. Discharge instructions given (written & verbal review), patient verbalized understanding. Patient discharged to home at 1159 via ambulatory with team truck driver. Erin Askew RN - 01/12/2017 11:15 AM CDT Patient here for cervical facet injection procedure. Patient rates pain in neck, 8/10 at rest, 8/10 with activity. Verified NPO status. Pre-op teaching completed, patient verbalizes understanding. Confirmed pt has team truck driver home. Consent per MD. Patient states she has an infection in her tooth. Informed MD. documented in this encounter Procedure Notes Dakota Aparicio MD - 01/12/2017 11:59 AM CDT CERVICAL FACET JOINT INJECTION Lateral approach SIDE: Left LEVEL(S): C2/3 Postprocedural Diagnosis: Cervical facet arthropathy Anesthesia - none IV Fluids - none Needle Type: - 25 gauge 1.5 inch Contrast Dye - isohexol 200mg/ml Injected Solution: 0.25 % bupivacaine 0.5 ml + 5mg of dexamethasone into the facet joint Additional Medications Administered: none Estimated Blood Loss - none Drains: None Specimens Removed: None Urine Output - Not Measured Complications: none Outcome: Good VAS Before Injection: 8 /10 VAS 10 minutes After Injection: 10 Informed Consent: The patient???s condition and proposed procedures, risks, and alternatives were discussed with the patient. The patient???s questions were answered. Risks include but not limited to infection, bleeding, nerve injury, increased pain, spinal cord injury, allergic reactions, and side effects from steroids. The patient appeared to understand and chose to proceed. Informed consent was obtained. I talked to the patient about her visit with the dentist yesterday. She had a routine visit with a dentist, and during the exam he felt that one of her left upper incisors looked as though it could be infected. However, she did not have any significant symptoms or pain in that area. In fact prior to the appointment yesterday she did not even really noticed much pain in that area. When he pushed on itshe did note some discomfort. Thus out of precaution she was given antibiotics. There were no systemic signs of infection, no erythema or swelling, and the evidence of infection was minimal. She is starting her antibiotics today. Because this was a finding discovered on routine exam, and she did not have significant symptoms, and she is afebrile, and had no signs of infection, she desired to proceed with steroid injection todayafter discussing the risks benefits ratio. 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 I told her that steroids could potentially make the infection worse or the infection can spread into the region, although this would be a very rare side effect. After obtaining written consent, the patient was taken back to the fluoroscopy suite and placed in aprone position with a pillow under the chest to decrease the cervical lordosis and to facilitate needle entry into the facet joints. The skin overlying the injection site was prepped and draped in an aseptic fashion. The target vertebral interspace (see above) was identified by AP fluoroscopy. Adequate visualizationof the cervical facet joints was achieved by AP and caudocranial angulation of the fluoroscope in combination with a contralateral oblique view. The facet joints were identified radiographically at the junction of the inferior articular process and the superior articular process of the caudad vertebrae. A lateral approach to the facet joints was employed. Final positioning on the facet was confirmed by rotating the fluoroscope to an off lateral positionso that the uppermost articular pillar was distinguished from the opposite side. Procedural Pause: A procedural pause verifying correct patient, medical record number, allergies, and surgical site was performed immediately prior to beginning the procedure. The skin and subcutaneous tissue overlying the target site of injection was anesthetized using 2 mL of 1% lidocaine with a 25-gauge, 1??-inch needle. The above noted needle was advanced towards the above listed facet joint(s) on the above listed side under fluoroscopic guidance. The firm posterior capsule had its characteristic feel and the needle was advanced a few additional millimeters beyond the joint capsule into the joint capsule space, but not into the articular cartilage. After the joint space was entered and aspiration was negative for heme or CSF, the above volume of dye was injected demonstrating contrast in the distribution of the C2 C3 facet joint. The final position of the needle(s) was identified using AP and lateral views. Paresthesias were not noted with final needle positioning.After negative aspiration for heme or CSF, the steroid solution described above was injected in increments. The needle was then retracted approximately penitentiary and the needle track was flushed with 1 mL of 1% lidocaine. The needle(s) was then removed. A sterile bandage was placed over the injection site. The heart rate, pulse oximetry, and blood pressure were continuously monitored throughout the procedure. The patient tolerated the procedure well. She was carefully escorted to the recovery room in stable condition. After meeting discharge criteria, the patient was discharged home. DISCUSSION: Today we performed a cervical facet joint injection. The goal in performing a facet joint injection is to provide diagnostic information and relief from pain brought on by axial extension and permit greater function. The patient was informed that it may take several days for the steroid medication to reach its full efficacy and she should continue her regular pain medications as prescribed. If only short term relief is obtained from the local anethetic but no halfway relief from the steroid, a diagnostic medial branch block may be indicated. The medial branch nerves carry sensory and nociceptive information from the corresponding facet joints. If the diagnostic medial branch block provides significant temporary relief, then radiofrequency ablation of the corresponding medial branches may be recommended in thehope of providing longer term relief. The patient was advised to relax and [...] contact the pain clinic immediately or seek emergent evaluation if unable to reach the pain clinic. RECOMMENDATIONS: 1. We will plan to have the patient follow up in clinic with Dr. Geiger. Dakota Aparicio MD 01/12/2017, 11:59 AM documented in this encounter Plan of Treatment Not on filedocumented as of this encounter Procedures Procedure Name Priority Date/Time Associated Diagnosis Comme nts FL C ARM 20 PAIN Routine 01/12/2017 11:42 Cervical radiculopat hy Results for this MANAGEMENT AM CDT procedure are i n the results section. documented in this encounter Results FL [...] nos documented in this encounter Care Teams Board Catcher Relationship Specialty Start Date End Date Needs Pcp, Assignment PCP - General 04/24/14 [place] [address] documented as of this encounter
--- OUTSIDE RECORDS SUMMARY | 2022-08-03 21:33 | XMS_ITS | Encounter Summary ---
:1975 Author Organization [facility] Address [address] [place] [address] Care Team Providers Name Role Phone Needs Pcp, Assignment Primary Care Provider Encounter Details Date Type Department Care Team Description 02/16/2017 Notes/Orders [facility] Fawad Vera MD [address] [facility] [address] [place] [address] Dr Ruiz [place] [address] [place] [address] [phone] (Wo rk) Social History Tobacco Use Types [...] on filedocumented in this encounter Care Teams Binder Selector Relationship Specialty Start Date End Date Needs Pcp, Assignment PCP - General 04/24/14 [place], [place] [id number] documented as of this encounter
--- OUTSIDE RECORDS SUMMARY | 2022-08-03 21:33 | XMS_ITS | Encounter Summary ---
:1975 Author Organization [facility] Address [address] [place] [address] Care Team Providers Name Role Phone Needs Pcp, Assignment Primary Care Provider Reason for Visit Reason Onset Date Comments Pre-procedure Call 12/06/2016 Encounter Details Date Type Department Care Team Description 12/06/2016 Telephone [facility] Lila Garcia RN Pre-procedure Call [address] [place], [place] [address] Social History Tobacco Use [...] on filedocumented in this encounter Care Teams Humidifier Maintenance Worker Relationship Specialty Start Date End Date Needs Pcp, Assignment PCP - General 04/24/14 [place] [address] documented as of this encounter
--- OUTSIDE RECORDS SUMMARY | 2022-08-03 21:33 | XMS_ITS | Encounter Summary ---
:1975 Author Organization [facility] Address [address], [place] [address] Care Team Providers Name Role Phone Needs Pcp, Assignment Primary Care Provider Reason for Visit Reason Onset Date Comments Refill 03/08/2017 Encounter Details Date Type Department Care Team Description 03/08/2017 Refill [facility] Fawad Vera MD Refill [address] [facility] [address] [facility] [address] [place] [address] [place] [address] [phone] (Wo rk) Social History Tobacco Use Types Packs/Day Years Used Date Smoking Tobacco: Never Smokeless Tobacco: Never Alcohol Use Standard Drinks/Week Comments No 0 (1 standard drink = 0.6 oz pure alcoho l) Sex Assigned at Date Recorded Not on file documented as of this encounter Nursing Notes Yolanda Cali RN - 03/08/2017 4:15 PM CDT Medication approved and signed by provider. At [facility] desk (pt picking up) Patient notified via . Yolanda Cali RN - 03/08/2017 1:42 PM CDT Juanjo patient: Requesting refill on [place]. Last refill was 40# on 02/16/17. Scheduled to see Dr. Aparicio in Pain Clinic on 03/17/17. Last office visit with Dr. Geiger was 02/03/17: Assessment: ?? 1. Neck Pain. 2. Chronic headache, cervicogenic. Plan: I will discuss doing a radiofrequency ablation versus a sphenopalatine with Dr. Aparicio. I will callher with a treatment plan going forward. She was in agreement with this and will follow up as indicated.? Please approve or advise in provider absence. documented in this encounter Plan of Treatment Not on filedocumented as of this encounter Visit Diagnoses Not on filedocumented in this encounter Care Teams Senior Project Leader/Team Lead Relationship Specialty Start Date End Date Needs Pcp, Assignment PCP - General 04/24/14 [place] [address] documented as of this encounter
--- OUTSIDE RECORDS SUMMARY | 2022-08-03 21:33 | XMS_ITS | Encounter Summary ---
:1975 Author [facility] Address [address], [place] [address] Care Team Providers Name Role Phone Needs Pcp, Assignment Primary Care Provider Reason for Visit Reason Onset Date Comments QUESTIONS, GENERAL 12/08/2016 Encounter Details Date Type Department Care Team Description 12/08/2016 Refill [facility] Fawad Vera MD QUESTIONS, GENERAL [address] [facility] [address] [facility] [place], [place] [address] [place] [address] [phone] (Wo rk) Social History Tobacco Use Types Packs/Day Years Used Date Smoking Tobacco: Never Smokeless Tobacco: Never Alcohol Use Standard Drinks/Week Comments No 0 (1 standard drink = 0.6 oz pure alcoho l) Sex Assigned at Date Recorded Not on file documented as of this encounter Nursing Notes Yolanda Cali RN - 12/09/2016 9:02 AM CST Per provider, he did leave a VM for patient yesterday evening around 8:00pm, he also did approve Zanaflex tablets for her. THCARE SCIENCE SPECIALIST Yolanda Cali RN - 12/08/2016 2:42 PM CST Patient calling, injection was cancelled due to having a full body rash, she has not seen anyone yetfor this rash. She is going out of town tomorrow and wanting to further discuss with you pain management options as again her injection was cancelled. She also states she does not like the Baclofen as much as her Zanaflex medication. She can be reached at [phone]. THCARE SCIENCE SPECIALIST documented in this encounter Plan of Treatment Not on filedocumented as of this encounter Visit Diagnoses Not on filedocumented in this encounter Care Teams Medical Researcher Relationship Specialty Start Date End Date Needs Pcp, Assignment PCP - General 04/24/14 [place] [address] documented as of this encounter
--- OUTSIDE RECORDS SUMMARY | 2022-08-03 21:33 | XMS_ITS | Encounter Summary ---
:1975 Author Organization [facility] Address [address] [facility] [place] [address] Care Team Providers Name Role Phone Needs Pcp, Assignment Primary Care Provider Reason for Visit Reason Onset Date Comments QUESTIONS, GENERAL 11/26/2016 Encounter Details Date Type Department Care Team Description 11/26/2016 Telephone [facility] Fawad Geiger MD QUESTIONS, GENERAL [address] [facility] [address] [facility] [place] [address] [place] [address] [phone] (Wo rk) Social History Tobacco Use Types Packs/Day Years Used Date Smoking Tobacco: Never Smokeless Tobacco: Never Alcohol Use Standard Drinks/Week Comments No 0 (1 standard drink = 0.6 oz pure alcoho l) Sex Assigned at Date Recorded Not on file documented as of this encounter Nursing Notes Rigoberto Roman RN - 11/26/2016 8:25 AM CST Pt last seen on 11/18/16 for 1. Neck Pain 2. Chronic headache 3. Myalgia ?? Pt went to the ED last night for severe neck pain and headache. Pt's last MRI was 04/2015 so she is getting a repeat MRI cervical today. Provider will be notified. [facility] documented in this encounter Plan of Treatment Not on filedocumented as of this encounter Visit Diagnoses Not on filedocumented in this encounter Care Teams Aix System Administrator Relationship Specialty Start Date End Date Needs Pcp, Assignment PCP - General 04/24/14 [place] [address] documented as of this encounter
--- OUTSIDE RECORDS SUMMARY | 2022-08-03 21:33 | XMS_ITS | Encounter Summary ---
:1975 Author Organization [employer] Address [address] [place] [address] Care Team Providers Name Role Phone Needs Pcp, Assignment Primary Care Provider Encounter Details Date Type Department Care Team Description 01/14/2016 Hospital Encounter [facility] [address] [facility] [address] [facility] [address] [place] [address] [place], [place] [address] (Wo rk) Social History Tobacco Use Types [...] - Inhaled Oxygen Concentration - - Weight 69.9 kg (154 lb) 01/14/2016 9:25 AM CDT Height 181.6 cm (5' 11.5) 01/14/2016 9:25 AM CDT Body Mass Index 21.18 01/14/2016 9:25 AM CDT documented in this encounter Medications at Time of Discharge Medication Sig Dispensed Refills Start Date End Date diclofenac (AKA VOLTAREN) Take 75 mg by mouth 0 0 12/26/2015 01/12/2017 75 MG enteric coated two times a day. tablet Reported on 01/12/2017 DULoxetine (AKA CYMBALTA) Take 1 capsule by 60 capsule 3 08/04/2017 30 MG capsuleIndications: mouth daily (every Myofascial pain 24 hours). 30mg daily X 7 days, then 60mg thereafter. gabapentin (AKA Take 300 mg by 0 12/15/201503/29 NEURONTIN) 300 MG capsule mouth three times a day. Reported on 01/12/2017 HYDROcodone-acetaminophen Take 1-2 tablets by 30 tablet 0 0 01/14/2016 05/07/2016 (aka NORCO) 5-325 MG mouth every 4 hours tablet TABS as needed for Pain. HYDROcodone-acetaminophen Take 1-2 tablets by 30 tablet 0 0 01/14/2016 01/12/2017 (NORCO) 5-325 MG tablet mouth every 4 hours as needed for Pain. meloxicam (AKA MOBIC) 7.5 Take 2 tablets by 60 tablet 0 01/12/2017 MG tabletIndications: mouth daily (every Myofascial pain 24 hours). methocarbamol (AKA Take 1 tablet by 20 tablet 0 12/26/2015 01/12/2017 ROBAXIN) 500 MG mouth 2 times daily tabletIndications: as needed for Myofascial pain Muscle spasms. documented as of this encounter Procedure Notes Luis Fernando Garcia MD - 01/14/2016 10:17 AM CDT Op Note signed by Luis Fernando Garcia MD at 01/14/16 1132 Author: Luis Fernando Garcia MD Service: (none) Author Type: Physician Filed: 01/14/16 1132 Note Time: 01/14/16 1039 Status: Signed Electrical Subcontractor: Luis Fernando Garcia MD (Physician) NAME: VIVEK MORALES MR#: [id number] CSN: [id number] AUTHENTICATING CLINICIAN: Luis Fernando Garcia MD CONFIRM #: [id number] LOC: 725 OPERATIVE REPORT DATE OF OPERATION: 01/14/2016 : 1975 SURGEON: Luis Fernando Garcia MD ASSISTANTS: 1. Vilma Haines MD (PGY-4) 2. GARRETT Murrieta PREOPERATIVE DIAGNOSIS: Left small trigger finger. POSTOPERATIVE DIAGNOSIS: Left small trigger finger. PROCEDURE: Left small trigger finger release. ANESTHESIA: Local. EBL: Minimal. URINE OUTPUT: Not measured. FLUIDS: None. INDICATIONS: For surgical indications, please refer to my transcribed clinic note found in the electronic medicalrecord dated 12/15/2015. DESCRIPTION OF PROCEDURE: Upon completion of the informed consent process, the proper surgical site was verified and then marked with my initials. Ms. Morales was then brought to the operating room and placed supine on the operating table where a well-padded tourniquet was placed around her left forearm. A time-out was completed. The skin in the distal palmar crease in line with the left small finger was prepped with alcohol and then infiltrated with a 50:50 blend of 0.5% Marcaine plain and 2% lidocaine. The left upper extremity was then prepped and draped in the standard sterile fashion. A time-out was repeated. The arm was exsanguinated with an elastic bandage and the tourniquet inflated to 250 mmHg. The planned incision in the distal palmar crease in line with the left small finger ray was made. Dissection continued bluntly through the subcutaneous tissue. The A1 yesy was identified. Under direct visual visualization, the A1 yesy was released. The yesy was mildly thickened. Upon division ofthe A1 yesy, Ms. Morales was asked to attempt to elicit triggering and was unable to do so. The patient's wound was then copiously irrigated with saline. The tourniquet was deflated. Hemostasis was achieved using bipolar electrocautery. The wound was closed with 4-0 nylon. A sterile dressing was applied. Ms. Morales tolerated this procedure well and there were no immediate complications. Shereturned to the recovery area in good condition. MCW: C: R:01/14/16 10:28 CONFIRM#:[id number] documented in this encounter OR Notes H&P - Luis Fernando Garcia MD - 01/14/2016 9:38 AM CDT [facility] Age: 40 y.o. Admitting Complaint: Left small trigger finger Contemplated Procedure: Left small trigger finger release There is no problem list on file for this patient. Bleeding tendencies? no No Known Allergies Past Medical History Diagnosis Date ??? Herniated disc, cervical (ACG) C6-C7 ??? Trigger finger ??? Migraines Past Surgical History Procedure Laterality Date ??? Liposuction Complications related to previous surgery: none Anesthesia problems related to previous surgery: none Date of last general Anesthesia: unknown PHYSICAL EXAMINATION Height: 181.6 cm (5' 11.5) (01/14/16924) Weight: 69.854 kg (154 lb) (01/14/16924) General appearance: alert, cooperative, no distress, appears stated age, Lungs: clear to auscultation bilaterally and Heart: regular rate and rhythm, S1, S2 normal, no murmur, click, rub or gallop Contraindications to surgery: none Diagnoses: Left small trigger finger Luis Fernando Garcia MD 9:38 AM 01/14/2016 CLIPPING CUTTER documented in this encounter Miscellaneous Notes Medication History - Heath Pulido MD - 01/14/2016 10:25 AM CDT INPATIENT MEDS Encounter Date: 12/15/15 HYDROcodone-acetaminophen (NORCO) 5-325 mg per tablet Start Date:01/14/16, End Date:-, Frequency:EVERY 4 HOURS PRN *No Administrations Recorded diazepam (VALIUM) tablet 10 mg Start Date:01/14/16, End Date:01/14/16, Frequency:ONCE PRN *No Administrations Recorded documented in this encounter Plan of Treatment Not on filedocumented as of this encounter Visit Diagnoses Not on filedocumented in this encounter Care Teams Steam Plant Operator Relationship Specialty Start Date End Date Needs Pcp, Assignment PCP - General 04/24/14 [place] [address] documented as of this encounter
--- OUTSIDE RECORDS SUMMARY | 2022-08-03 21:33 | XMS_ITS | Encounter Summary ---
:1975 Author Organization On license of [facility] Address [address], [place] [address] Care Team Providers Name Role Phone Needs Pcp, Assignment Primary Care Provider Reason for Visit Reason Onset Date Comments Post Visit Follow Up Phone Call 01/13/2017 Encounter Details Date Type Department Care Team Description 01/13/2017 Telephone [facility] Lila Garcia RN Post Visit Follow Up [address] Phone Call [place], [place] [address] Social History Tobacco Use Types [...] on filedocumented in this encounter Care Teams Concrete Swimming Pool Installer Relationship Specialty Start Date End Date Needs Pcp, Assignment PCP - General 04/24/14 [facility] [place] [address] documented as of this encounter
--- OUTSIDE RECORDS SUMMARY | 2022-08-03 21:33 | XMS_ITS | Encounter Summary ---
:1975 Author Organization [facility] Address [address], [place] [address] Care Team Providers Name Role Phone Needs Pcp, Assignment Primary Care Provider Reason for Visit Reason Comments HAND PAIN ERRONEOUS ENTRY Encounter Details Date Type Department Care Team Description 01/26/2016 Office Visit [facility] Luis Fernando Garcia, [facility] (Primary Dx) [address] [facility] [place], [place] [address] [place], [place] [phone] (Wo rk) Social History Tobacco Use Types Packs/Day Years Used Date Smoking Tobacco: Never Smokeless Tobacco: Never Alcohol Use Standard Drinks/Week Comments No 0 (1 standard drink = 0.6 oz pure alcoho l) Sex Assigned at Date Recorded Not on file documented as of this encounter Progress Notes Luis Fernando Garcia MD - 01/26/2016 3:51 PM CDT This encounter was created in error - please disregard. STIAN SCIENCE HEALER Judi Arguelles - 01/26/2016 1:17 PM CDT This encounter was created in error - please disregard. STIAN SCIENCE HEALER documented in this encounter Plan of Treatment Not on filedocumented as of this encounter Visit Diagnoses Diagnosis ERRONEOUS ENTRY - Primary documented in this encounter Care Teams Police Records Clerk Relationship Specialty Start Date End Date Needs Pcp, Assignment PCP - General 6/25/14 [place] [address] documented as of this encounter
--- OUTSIDE RECORDS SUMMARY | 2022-08-03 21:33 | XMS_ITS | Encounter Summary ---
:1975 Author Organization [facility] Address [address] [address] Care Team Providers Name Role Phone Needs Pcp, Assignment Primary Care Provider Reason for Visit Reason Comments Post Op Exam Encounter Details Date Type Department Care Team Description 01/29/2016 Office Visit [facility] Luis Fernando Garciaca re [facility] [place] [facility] the [address] [place] [address] musculoskeletal system [place], [place] (Primary Dx) [phone] Social History Tobacco Use Types Packs/Day Years Used Date Smoking Tobacco: Never Smokeless Tobacco: Never Alcohol Use Standard Drinks/Week Comments No 0 (1 standard drink = 0.6 oz pure alcoho l) Sex Assigned at Date Recorded Not on file documented as of this encounter Progress Notes Luis Fernando Garcia MD - 01/29/2016 3:[address] [facility] Postoperative Follow-Up 01/29/2016 History of Present Illness: Vivek Echeverria is a 40 y.o. female status-post left small trigger finger release completed on 01/14/2016 who presents for routine postoperative follow-up. The patient states that she is much improved after this surgery. She feels that the finger is functioning fully again. She has not had any problems with the finger catching. No further complaints are voiced at this time. Physical Exam: General: Healthy appearing female. Affect appropriate. Normal gait. Alert and oriented x 3. Skin: Wound is healed and benign. There is mild dehiscence of the superficial epidermis but the deeptissue is healed. No erythema or drainage. Cardiovascular/Neuro: Sensation intact to light touch in all digits. Fingertips pink and well-perfused. Capillary refill less than two seconds. Left Hand/Wrist: She is able to make a closed fist and has near full extension. Imaging: Deferred Assessment: Diagnosis and Associated Orders ICD-10-CM ICD-9-CM 1. Status-post left small trigger finger release completed on 01/14/2016 Z47.89 V58.78 Plan: I recommended the patient return to normal activity as tolerated; she is at maximal medical improvement. We will ease her back into work as outlined on her work ability form which was updated. No permanent partial disability rating. She can massage 5-10 minutes at a time a few times a day. She can also use vitamin E oil or lotions with this. It is okay to get the wound wet. Follow-up as needed. Scribe Disclosure: Tomas Oreilly am serving as a scribe to document services personally performed by Luis Fernando Garcia MD at this visit, based upon the provider's statements to me. All documentation has been reviewed by the aforementioned provider prior to being entered into the official medical record. Entered on 01/29/2016 at 6:29 AM. I, Luis Fernando Garcia MD, attest that the above named individual is acting in scribe capacity, has observed my performance of the services performed at this visit and has documented them in accordance with my direction. Entered on 01/29/2016 at 6:29 AM. Luis Fernando Garcia MD ER WIRER documented in this encounter Plan of Treatment Not on filedocumented as of this encounter Visit Diagnoses Diagnosis [facility]care [facility] - Primary Aftercare following [facility] documented in this encounter Care Teams Well Driller Helper Relationship Specialty Start Date End Date Needs Pcp, Assignment PCP - General 04/24/14 [place] [address] documented as of this encounter
--- OUTSIDE RECORDS SUMMARY | 2022-08-03 21:33 | XMS_ITS | Encounter Summary ---
:1975 Author [facility] Address [address] [place] [address] Care Team Providers Name Role Phone Needs Pcp, Assignment Primary Care Provider Reason for Visit Reason Onset Date Comments Injection 12/07/2016 Body Rash Encounter Details Date Type Department Care Team Description 12/07/2016 Telephone [facility] Fawad Jerez MD Injection (Body Rash) CENTER [address] [place] [address] [address] [place], [place] [phone] (Wo rk) Social History Tobacco Use Types Packs/Day Years Used Date Smoking Tobacco: Never Smokeless Tobacco: Never Alcohol Use Standard Drinks/Week Comments No 0 (1 standard drink = 0.6 oz pure alcoho l) Sex Assigned at Date Recorded Not on file documented as of this encounter Nursing Notes Yolanda Cali RN - 12/07/2016 2:43 PM CST Received VM from patient, stating she has a rash that covers a large portion of her body, and she has an injection scheduled for tomorrow. She has not seen anyone for her rash at this time. Forwarded message to Pain Department to see if they want to continue with injection scheduled for tomorrow. SHIFTER documented in this encounter Plan of Treatment Not on filedocumented as of this encounter Visit Diagnoses Not on filedocumented in this encounter Care Teams Spiral Tube Winder Helper Relationship Specialty Start Date End Date Needs Pcp, Assignment PCP - General 04/24/14 [place] [address] documented as of this encounter
--- OUTSIDE RECORDS SUMMARY | 2022-08-03 21:33 | XMS_ITS | Encounter Summary ---
:1975 Author [facility] Address [address] [address] Care Team Providers Name Role Phone Needs Pcp, Assignment Primary Care Provider Reason for Referral Therapies (Routine) - Closed Specialty Diagnoses / Procedures Referred By Contact Refer red To Contact Diagnoses Neck pain Fawad Geiger MD [address] [place] [address] Dr [place] [address] Referral ID Status Reason Start Date Expiration Date Visits Requ ested Visits Authorized [id number] Closed 02/03/2017 04/04/2017 1 1 Scheduling Instructions If scheduling assistance is needed, sea matias inquire with the medical office staff upon exiting your appointment or contact the ordering clinic for recommended locations. This recommended service/s may not be co vanessa by your insurance coverage. To find out your specific benefit coverage, please c all the number on your insurance card. Reason for Visit Reason Comments Neck Pain Encounter Details Date Type Department Care Team Description 02/03/2017 Office Visit [facility] Fawad Geiger MD Neck pain (Primary Dx); CENTER [address] [place] [address] Cervicogenic headache [address] [place], [place] [phone] (Wo rk) Social History Tobacco Use Types Packs/Day Years Used Date Smoking Tobacco: Never Smokeless Tobacco: Never Alcohol Use Standard Drinks/Week Comments No 0 (1 standard drink = 0.6 oz pure alcoho l) Sex Assigned at Date Recorded Not on file documented as of this encounter Patient Instructions Patient InstructionsPhiJaylene villalpando ATC - 02/03/2017 10:[address] Fawad Geiger MD Orthopaedic Spine Please contact the Spine Nurse for all medical related questions at [phone] Office Hours: and Tuesday Medication Requests: Prescriptions are not filled on Weekends or on Weekdays after 3:00PM For all medication refills: Request a refill using MyChart or contact your Pharmacy Dispatcher Service Or Work: Juli Gould Please contact Juli for all administrative questions at [phone] Physical Therapy Trial of traction documented in this encounter Progress Notes Fawad Geiger MD - 02/03/2017 10:38 AM CDT [facility] Follow-Up 02/03/2017 Chief Complaint: Neck Pain and Headaches. History of Present Illness: Vivek Echeverria is a 41 y.o. female who presents with her for follow-up of neck pain and headaches. I last evaluated the patient for this complaint on 11/18/2016 at which time the patient elected to undergo a trigger point injection in her left upper neck, as well as an occipital nerve block. She called on 11/25/2016 to say she was still having a persistent headache with neck pain. She electedto undergo a left C2-3 facet injection which was completed on 01/12/2017. Today, the patient indicates her neck pain and headache improved from an 8/10 in severity to a 2/10 in severity following the initial administration of numbing medication during the procedure. She did not, however, find any long-term relief with the corticosteroid. She continues to have daily headaches and neck pain for which she has been using Zanaflex and [place] at home for relief. Physical Exam: General: Vivek is alert, cooperative and in no acute distress. Mood and affect are appropriate. Neck: Cervical ROM is full in all planes. Spurling's is negative bilaterally. Neuro: There is 5/5 strength throughout the bilateral upper extremities. Sensation is intact to light touch over the C5-T1 dermatomes bilaterally. There are 2+ biceps, triceps and brachioradialis reflexes bilaterally. Wilfrido's is negative bilaterally. Cardiovascular: Radial pulses are palpable and symmetric Assessment: 1. Neck Pain. 2. Chronic headache, cervicogenic. Plan: I will discuss doing a radiofrequency ablation versus a sphenopalatine with Dr. Aparicio. I will callher with a treatment plan going forward. She was in agreement with this and will follow up as indicated. Scribe Disclosure: Itz Oreilly, am serving as a scribe to document services personally performed by Fawad Geiger MD at this visit, based upon the provider's statements to me. All documentation has been reviewed by the aforementioned provider prior to being entered into the official medical record. Entered on 02/03/2017 at 10:46 AM. Fawad Oreilly MD, attest that the above named individual is acting in scribe capacity, has observed my performance of the services performed at this visit and has documented them in accordance with my direction. Entered on 02/03/2017 at 10:46 AM. Fawad Geiger MD documented in this encounter Plan of Treatment Scheduled Referrals Name Type Priority Associated Diagnoses [facility] Referral Routine Neck pain Ordered: documented as of this encounter Visit Diagnoses Diagnosis Neck pain - Primary Cervicalgia Cervicogenic headache Headache documented in this encounter Care Teams Product/Industry Consultant Relationship Specialty Start Date End Date Needs Pcp, Assignment PCP - General 04/24/14 [place] [address] documented as of this encounter
--- OUTSIDE RECORDS SUMMARY | 2022-08-03 21:33 | XMS_ITS | Encounter Summary ---
:1975 Author Organization [facility] Address [address], [place] [address] Care Team Providers Name Role Phone Needs Pcp, Assignment Primary Care Provider Encounter Details Date Type Department Care Team Description 02/16/2016 Notes/Orders CODING DEPT ONLY 5050 Needs Pcp, Assignment [facility] [place] [address] Social History Tobacco Use Types Packs/Day Years [...] on filedocumented in this encounter Care Teams Forepart Laster Relationship Specialty Start Date End Date Needs Pcp, Assignment PCP - General 04/24/14 [place] [address] documented as of this encounter
--- OUTSIDE RECORDS SUMMARY | 2022-08-03 21:33 | XMS_ITS | Encounter Summary ---
:1975 Author Organization [facility] Address [address] [place] [address] Care Team Providers Name Role Phone Needs Pcp, Assignment Primary Care Provider Reason for Visit Reason Comments Neck Pain Encounter Details Date Type Department Care Team Description 11/18/2016 Surgical Consult [facility] Fawad Geiger Nec k pain (Primary Dx); CENTER Chronic intractable headache, unspecifie d headache type; [address] [place] [address] [place] [address] [phone] Social History Tobacco Use Types Packs/Day Years [...] Concentration - - Weight - - Height 180.3 cm (5' 11) 11/18/2016 1:53 PM POLICE SUPERINTENDENT Body Mass Index - - documented in this encounter Patient Instructions Patient InstructionsPhiJaylene villalpando ATC - 11/18/2016 2:[address] Fawad Geiger MD Orthopaedic Spine Please contact the Spine Nurse for all medical related questions at [phone] Office Hours: and Tuesday Medication Requests: Prescriptions are not filled on Weekends or on Weekdays after 3:00PM For all medication refills: Request a refill using Schoo or contact your Pharmacy [facility] Security Director: Juli Gould Please contact Juli for all administrative questions at [phone] Dr. Geiger will call you with lab results Thank you for enrolling in Schoo. Please follow the instructions below to securely access your online medical record. Schoo allows you to send messages to your doctor, view your test results, renewyour prescriptions, schedule appointments, and more. How Do I Sign Up? 1. In your Internet browser, go to [email or web address] 2. Click on the Enter activation code link under the New User? section. You will see the Activate your account! page. 3. Enter your activation code exactly as it appears below. You will not need to use this code after you???ve completed the sign-up process. If you do not sign up before the expiration date, you must request a new code. Activation Code: [email or web address] Expires: 12/18/2016 2:34 PM 4. Enter your last name and date of (mm/dd/yyyy) as indicated, then click Continue. You will be taken to the Let's set up your account page. 5. Create a username. This will be your Schoo login ID and cannot be changed, so think of one thatis secure and easy to remember. 6. Create a password. You can change your password at any time. 7. Enter your e-mail address. You will receive e-mail notification when new information is availablein Schoo. 8. Select your Security Questions and enter your answers. These can be used at a later time if you forget your password. 9. Check the box to accept the terms and conditions. Click Create your account. You can now view your medical record. Additional Information If you have questions, you can call [phone] to talk to our Schoo staff. Remember, Schoo is NOT to be used for urgent needs. For medical emergencies, dial 911. CE SUPERINTENDENT documented in this encounter Progress Notes Fawad Geiger MD - 11/18/2016 7:40 AM CST [facility] Orthopaedic [place] Consultation 11/18/2016 Chief Complaint: Neck Pain History of Present Illness: Vivek Echeverria is a 41 y.o. female who presents for evaluation of neck pain. She has had a cervical epidural injection on 05/22/2015, which provided no lasting symptoms improvement. The patient was last evaluated here on 12/26/[address] Aparicio in the pain clinic, with formal physical therapy at that time. She explains that she recently had an injection by her PCP into her left shoulder, apparentlya trigger point injection, that is still providing relief. She localizes her pain to the left upper neck and occipital region. She has tried physical therapy, chiropractic, and massage with no improvement. She notes improvement of her pain after lying down in bed for long periods of time. She states the neck pain is worse than the head pain, although this is causing migraines. She notes that she has a rash on her chest and elbows that began a four days ago. She also had sudden onset of left eye blindness during her constant typical headache, that occurred for 5-7 minutes, and cleared from the top down. Past Medical History: The patient has a past medical history of trigger finger, migraines, arthritis, anemia and anxiety. Past Surgical History: The patient has past surgical history that includes liposuction. Review of Systems: A 14 point review of systems was remarkable for blurry vision, fatigue, night sweats, rashes, nausea, headaches, , joint pains, arthritis, easy bleeding/bruising. Family History: The patient's family history includes Hypertension in her father, and her mother has Grave's Disease. 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 Nonsmoker. No alcohol use. She is a nonsmoker. The General Medical History Form dated 11/18/2016 was updated and reviewed with the patient; this is located in [facility] in [facility]. Physical Exam: Height 1.803 m (5' 11). General: Vivek Echeverria is alert, cooperative and in no acute distress. Mood and affect are appropriate. Skin: Mild rash noted on the posterior aspect of the elbows bilaterally, and her right upper chest. Very minimal nail pitting. Neck: Cervical ROM is full in all planes. Spurling's is negative on the left but does reproduce local neck pain. Tender in the left cervical paraspinals. Neuro: There is 5/5 strength throughout the bilateral upper extremities. Sensation is intact to light touch over the C5-T1 dermatomes bilaterally. There are 2+ biceps, triceps and brachioradialis reflexes bilaterally. Wilfrido's is negative bilaterally. Cardiovascular: Radial pulses are palpable and symmetric. Imaging: MRI of the cervical spine - (05/22/2015): 1. Posterior disc osteophyte complex effaces the [...] clinically indicated, consider ultrasound for further evaluation. I independently reviewed the imaging studies above; the results were discussed with the patient, significant other, and daughter. Assessment: 1. Neck Pain 2. Chronic headache 3. Myalgia Plan: Due to the patient's rash and mild nail changes, we will obtain inflammatory markers to evaluate forpsoriatic or other inflammatory arthritis via a CRP and ESR, and a TSH due to her mother's history of Grave's disease and prior thyroid cyst noted on imaging. I will call her with the lab results. We discussed management options including the risks and benefits of a trigger point injection in her leftupper neck, and occipital nerve block to which she agrees to. She will follow up will be based on our discussion after lab results return. Depending on the results of the lab tests and her response to the injections above, we may consider a left C2/3 facet injection. Trigger Point Injection: The julissa of maximal tenderness in the left suboccipital were identified and marked. Skin was cleansed with alcohol and site was injected with 5 mL of a 50/50 mixture of 1% Lidocaine and 0.5% Bupivacaine. Occipital Nerve Block Injection: The julissa of maximal tenderness in the left occipital nerve were identified and marked. Skin was cleansed with alcohol and the 1 site was injected with 5 mL of a 50/50 mixture of 1% Lidocaine and 0.5% Bupivacaine. Scribe Disclosure: I, Dahlia Cui, am serving as a scribe to document services personally performed by Fawad Geiger MD at this visit, based upon the provider's statements to me. All documentation has been reviewed by the aforementioned provider prior to being entered into the official medical record. Entered on at 7:40 AM. I, Fawad Geiger MD, attest that the above named individual is acting in scribe capacity, has observed my performance of the services performed at this visit and has documented them in accordance with my direction. Entered on 11/18/2016 at 7:40 AM. Fawad Geiger MD CE SUPERINTENDENT documented in this encounter Plan of Treatment Not on filedocumented as of this encounter Procedures Procedure Name Priority Date/Time Associated Diagnosis Comme nts TSH AND FREE T4 Routine 11/18/2016 2:57 PM Result s for this (FRT4 IF TSH POLICE SUPERINTENDENT procedure are i n ABNORM) the results section. C-REACTIVE PROTEIN Routine 11/18/2016 2:57 PM Neck pain Res ults for this POLICE SUPERINTENDENT procedure are i n the results section. ESR Routine 11/18/2016 2:57 PM Neck pain Results f or this POLICE SUPERINTENDENT procedure are i n the results section. EXTRA SERUM Routine 11/18/2016 2:45 PM Results f or this SEPARATOR TUBE POLICE SUPERINTENDENT procedure are in (YELLOW) the results section. documented in this encounter Results TSH And Free T4 (FRT4 If TSH Abnorm) (11/18/2016 2:57 PM POLICE SUPERINTENDENT) P athologist Signature Thyroid 2.93 0.20 - PN SOFT Stimulating 4.50 Hormone uIU/mL Specimen Anatomical Collection Method Collection Time Receive d Time (Source) Location / / Volume Laterality 11/18/2016 2:57 PM 7 4:01 POLICE SUPERINTENDENT PM POLICE SUPERINTENDENT Narrative PN SOFT - 11/18/2016 5:40 PM POLICE SUPERINTENDENT Performed at [facility], [address] [place] [address] CLIA number [id number] Fawad Geiger MD LAB_1 Performing Organization Address City/State/ZIP Code Phon e Number PN SOFT [address] [place] [address] (CRP) C - Reactive Protein (11/18/2016 2:57 PM POLICE SUPERINTENDENT) P athologist Signature CRP <0.5 0.0 - 0.5 PN SOFT mg/dL Specimen Anatomical Collection Method Collection Time Receive d Time (Source) Location / / Volume Laterality 11/18/2016 2:57 PM 7 4:01 POLICE SUPERINTENDENT PM POLICE SUPERINTENDENT Narrative PN SOFT - 11/18/2016 4:53 PM POLICE SUPERINTENDENT Performed at [address] [address] CLIA number [id number] Fawad Geiger MD LAB_1 Performing Organization Address [facility] Phon e Number PN SOFT [address] [place] [address] Sedimentation Rate (11/18/2016 2:57 PM POLICE SUPERINTENDENT) Analysis Performed At [facility] Signature Sedimentation Rate 7 0 - 20 PN SOFT mm/hr Specimen Anatomical Collection Method Collection Time Receive d Time (Source) Location / / Volume Laterality 11/18/2016 2:57 PM 7 4:01 POLICE SUPERINTENDENT PM POLICE SUPERINTENDENT Narrative PN SOFT - 11/18/2016 4:56 PM POLICE SUPERINTENDENT Performed at [facility], [address] [place] [address] CLIA number [id number] Fawad Geiger MD LAB_1 Performing Organization Address [facility] Phon e Number PN SOFT [address] [place] [address] Extra Serum Separator Tube (yellow) (11/18/2016 2:45 PM POLICE SUPERINTENDENT) athologist Signature Extra SST Top Drawn PN SOFT Drawn Specimen Anatomical Collection Method Collection Time Receive d Time (Source) Location / / Volume Laterality 11/18/2016 2:45 PM 7 4:01 POLICE SUPERINTENDENT PM POLICE SUPERINTENDENT Narrative PN SOFT - 11/18/2016 4:01 PM POLICE SUPERINTENDENT Performed at [facility], [address] [place] [address] CLIA number [id number] Fawad Geiger MD LAB_1 Performing Organization Address City/State/ZIP Code Phon e Number PN SOFT [address] [place] [address] documented in this encounter Visit Diagnoses Diagnosis Neck pain - Primary Cervicalgia Chronic intractable headache, unspecifie d headache type Myalgia Mylagia and myositis, unspecified documented in this encounter Care Teams Driver License Technician Relationship Specialty Start Date End Date Needs Pcp, Assignment PCP - General 04/24/14 [place] [address] documented as of this encounter
--- OUTSIDE RECORDS SUMMARY | 2022-08-03 21:34 | XMS_ITS | Encounter Summary ---
:1975 Author Organization Counts include 234 beds at the [facility] Address [address], [place] [address] Care Team Providers Name Role Phone Needs Pcp, Assignment Primary Care Provider Reason for Visit Reason Comments Surgery Orders Encounter Details Date Type Department Care Team Description 01/06/2016 Notes/Orders [facility]N Luis Fernando Zapata MD [address] [place] [address] ERIN [address]es [address] [place] [address] [phone] (Wo rk) Social History Tobacco Use Types [...] on filedocumented in this encounter Care Teams Rotary Drill Rig Operator Relationship Specialty Start Date End Date Needs Pcp, Assignment PCP - General 04/24/14 [place] [address] documented as of this encounter
--- OUTSIDE RECORDS SUMMARY | 2022-08-03 21:34 | XMS_ITS | Encounter Summary ---
:1975 Author Organization [facility] Address [address] [place] [address] Care Team Providers Name Role Phone Needs Pcp, Assignment Primary Care Provider Reason for Visit Reason Comments HAND PAIN Encounter Details Date Type Department Care Team Description 12/15/2015 Office Visit [facility] Luis Fernando Garcia, [facility] trigger CENTER finger (Primary Dx) [address] [facility] [address] Ruiz [place] [address] [place], [place] [phone] (Wo rk) Social History Tobacco Use Types Packs/Day Years Used Date Smoking Tobacco: Never Smokeless Tobacco: Never Alcohol Use Standard Drinks/Week Comments No 0 (1 standard drink = 0.6 oz pure alcoho l) Sex Assigned at Date Recorded Not on file documented as of this encounter Patient Instructions Patient InstructionsDafne Olmos M - 12/15/2015 11:[address] Luis Fernando Garcia MD Hand & Upper Extremity Surgeon Topographical Surveyor: Mickie Olmos Please contact Mickie for all surgery scheduling and administrative questions at [phone] Please contact Nurse triage for all medical related questions at [phone] Medication Requests: Prescriptions are not filled on Weekends or on Weekdays after 3:00PM For all medication refills: Request a refill using MyChart or contact your Pharmacy Please call [phone] to make future appointments. Surgery scheduled for 01/09/16 documented in this encounter Progress Notes Luis Fernando Garcia MD - 12/15/2015 12:26 PM CST Progress Notes signed by Luis Fernando Garcia MD at 12/17/15 1028 Author: Luis Fernando Garcia MD Service: (none) Author Type: Physician Filed: 12/17/15 1028 Note Time: 12/17/15 1020 Status: Signed Director Of Hotel: Luis Fernando Garcia MD (Physician) NAME: VIVEK MORALES MR#: [id number] CSN: [id number] AUTHENTICATING CLINICIAN: Luis Fernando Garcia MD CONFIRM #: [id number] LOC: 711 CLINIC PROGRESS NOTE DATE OF VISIT: 12/15/2015 : 1975 INTERIM HISTORY: Vivek returns to clinic today. I have seen her previously for a left small trigger finger. We have done two previous corticosteroid injections. The last was done on May 08, 2015. She has gotten good temporary relief of her symptoms following each of those injections. Her symptoms recurred approximately one month ago. Recurrence was spontaneous. In addition to the intermittent triggering which seems to be most notable in the morning, she also describes achy pain overlying the A1 yesy of the left small finger rated at its worst as a 5/10. She is here today accompanied by her mother seeking furtherevaluation and management. PHYSICAL EXAM: Vivek is able to make a closed composite fist. She has full extension of the finger. She does not demonstrate triggering today. She is however tender to palpation over the A1 yesy of the left small finger and there is a palpable nodule that has excursion with motion of the digit. Furthermore mild triggering is palpated. The fingertip itself is pink and perfused with capillary refill of less than 2 seconds and sensationto light touch is unaltered. IMPRESSION: Recurrent left small trigger finger status post two previous corticosteroid injections. PLAN: We discussed options given her recurrence following two corticosteroid injections. We have decided to proceed with a trigger finger release. We will plan to do this under local anesthetic. We discussed the nature of surgery as well as the risks, benefits and alternatives. Questions were solicited. They were all answered. She would like to proceed. MCW:REGIS C: R:12/15/15 14:20 CONFIRM#:[id number] ERER documented in this encounter Plan of Treatment Not on filedocumented as of this encounter Visit Diagnoses Diagnosis Acquired trigger finger - Primary Trigger finger (acquired) documented in this encounter Care Teams High School Assistant Principal Relationship Specialty Start Date End Date Needs Pcp, Assignment PCP - General 04/24/14 [place] [address] documented as of this encounter
--- OUTSIDE RECORDS SUMMARY | 2022-08-03 21:34 | XMS_ITS | Encounter Summary ---
:1975 Author Organization [facility] Address [address] [place] [address] Care Team Providers Name Role Phone Needs Pcp, Assignment Primary Care Provider Reason for Visit Reason Comments Neck Pain Encounter Details Date Type Department Care Team Description 07/10/2015 Office Visit [facility] Daniel Chang, Tendinit is of left rotator cuff (Primary Dx); CENTER [facility] Cervical radiculopathy [address] [place] [address] DR Ruiz [place] [address] [place], [place] [phone] Social History Tobacco Use Types Packs/Day Years Used Date Smoking Tobacco: Never Smokeless Tobacco: Never Alcohol Use Standard Drinks/Week Comments No 0 (1 standard drink = 0.6 oz pure alcoho l) Sex Assigned at Date Recorded Not on file documented as of this encounter Patient Instructions Patient InstructionsYaritza Colón MA - 07/10/2015 9:19 AM CDT Daniel Chang PA-C Sports Medicine and General Orthopedics Respiratory Assistant: Maryjane Blanco Please contact Maryjane for all administrative questions at [phone] Please call Nurse Triage at [phone] for all medical questions Fax number: [phone] Medication Requests: Prescriptions are not filled on Weekends or on Weekdays after 3:00PM For all medication refills: Request a refill using MyChart or contact your Pharmacy If you develop new or worsening symptoms call DYLAN at [phone] documented in this encounter Progress Notes Daniel Chang PA-C - 07/10/2015 9:23 PM CDT [facility] Follow-Up 07/10/2015 Chief Complaint: Left Shoulder Pain History of Present Illness: Vivek Echeverria is a 40 y.o. female who presents for follow-up regarding left shoulder pain. Briefly, the patient has been experiencing pain of her neck and left shoulder which radiates down her left arm for the past few years, worsening over the past few months. She did have an injection into her neck prior to her initial evaluation with me on 05/08/2015 however, did not have significant improvement of her pain, and had a radiology-guided injection after her initial evaluation with me, however, thisdid not improve her pain, either, so she presents today for further evaluation. She has not had any new or worsening symptoms and does not complain of numbness or tingling. Please refer to my note dated 05/08/2015 for past medical history. The General Medical History Form dated 07/10/2015 was updated and reviewed with the patient; this is located in [facility] in [facility]. Physical Exam: General: The patient is in no acute distress. Neuro: Answers questions appropriately. Musculoskeletal: Guarded range of motion of the cervical spine. Spurling's test elicited mild increasing symptoms. Rotator cuff intact. Skin is cool to touch without erythema, ecchymosis, or lesions. Pain is noted with exercised isolate supra and infraspinatus. Full range of motion of cervical spine, elbow, wrist, and hand. Neurovascularly intact distally. Good capillary refill. 2+ radial pulse. Thisis compared bilaterally. Imaging: MR of the cervical spine without contrast (05/22/2015): Posterior disc osteophyte complex effaces the ventral thecal sac eccentric to the right at the C6-P0zedgv. Tiny right paracentral disc protrusion effaces the ventral thecal sac at the C5-C6 level. Mild narrowing of the right C3-C4 neural foramen due to uncovertebral hypertrophy. Mild degenerative disc disease with associated degenerative endplate changes at the C6-C7 level. 0.8cm x 1.9cm cystic appearing mass within the left lobe of the thyroid gland is indeterminate on this examination. If clinically indicated, consider ultrasound for further evaluation. I independently reviewed the imaging studies above; the results were discussed with the patient. Assessment: ICD-9-CM 1. Tendinitis of left rotator cuff 726.10 2. Cervical radiculopathy 723.4 Plan: I discussed with the patient, in detail, different treatment options including conservative management (ice, rest, oral pain medication), physical therapy, MR of the left shoulder to further evaluate the source of her pain, and cortisone injection, and the risks and benefits associated with these options. She voiced understanding of the information and requested an injection be completed as below. She will also go to physical therapy for neck and shoulder exercises. Patient will follow up with me inabout six to eight weeks' time for reexamination. Physical therapy was recommended and the patient was referred for a rotator cuff strengthening program. If they have any problems or complications, they will return to clinic sooner. Procedures: Left Subacromial Injection Using aseptic technique and Betadine prep, patient underwent a left cortisone injection using 9mL of1% plain Lidocaine and 40mg of Kenalog in the subacromial space using a 22-gauge needle posteriorly.There were no complications noted during or after the procedure. They noted immediate relief. Rotator cuff strength was improved post injection. Scribe Disclosure: Judi Oreilly, am serving as a scribe to document services personally performed by Daniel Chang PA-C at this visit, based upon the providers statements to me. All documentation has been reviewed by the aforementioned doctor prior to being entered into the official medical record. Entered on 07/10 at 9:57 AM. Daniel Oreilly PA-C, attest that the above named individual is acting in scribe capacity, has observed my performance of the services performed at this visit and has documented them in accordance with my direction. Entered on 07/10/2015 at 9:57 AM. Daniel Chang PA-C documented in this encounter Plan of Treatment Not on filedocumented as of this encounter Visit Diagnoses Diagnosis Tendinitis of left rotator cuff - Primar y Disorders of bursae and tendons in [place] region, unspecified Cervical radiculopathy Brachial neuritis or radiculitis nos documented in this encounter Care Teams Web Press Operator Helper Offset Relationship Specialty Start Date End Date Needs Pcp, Assignment PCP - General 04/24/14 [place] [address] documented as of this encounter
--- OUTSIDE RECORDS SUMMARY | 2022-08-03 21:34 | XMS_ITS | Clinical Summary ---
:1975 Author Organization [facility] [place] [address] Care Team Providers Name Role Phone Shari Huizar MD Primary Care Provider [phone] Allergies No known active allergies Medications Medication Sig Dispensed Refills Start Date End Date Status ferrous sulfate, 65 mg Take 1 tablet 0 08/10/2010 Active elemental, 325 mg (65 mg by mouth once Iron) EC tablet daily. ibuprofen (ADVIL; Take 1 tablet 30 tablet 0 08/14/2013 Active MOTRIN) 800 mg tablet by mouth 3 times daily if needed. SUMAtriptan (IMITREX) 25 Take 1 tablet 0 04/22/2015 Active mg tablet by mouth every 2 hours if needed for Migraine. Max dose: 200mg per 24 hrs. methylPREDNISolone Take by mouth 1 Package 0 12/09/2015 Active (MEDROL DOSEPAK) 4 mg as instructed tabletIndications: per packaging. Cervical radicular pain diclofenac (VOLTAREN) 75 Take 1 tablet 60 tablet 0 12/20/2015 Active mg delayed-release by mouth 2 tabletIndications: times daily Cervical radiculopathy with meals. gabapentin (NEURONTIN) TAKE 2 CAPSULES 540 capsule 0 6 Active 300 mg BY MOUTH THREE capsuleIndications: TIMES DAILY Cervical radicular pain Active Problems No known active problems Social History Tobacco Use Types Packs/Day Years Used Date Never Smoker Smokeless Tobacco: Never Used Tobacco Cessation: Counseling Given: Yes Alcohol Use Standard Drinks/Week Comments Not Asked 0 (1 standard drink = 0.6 oz pure alcoho l) Sex Assigned at Date Recorded Not on file Obstetrics History Last Filed Vital Signs Vital Sign Reading Time Taken Comments Blood Pressure 120/80 12/09/2015 5:36 PM MULTIMEDIA MANAGER Pulse 83 12/09/2015 5:36 PM MULTIMEDIA MANAGER Temperature 37.1 ??C (98.7 ??F) 12/09/2015 5:36 PM MULTIMEDIA MANAGER Respiratory Rate 16 04/22/2015 8:38 PM CDT Oxygen Saturation 100% 12/09/2015 5:36 PM MULTIMEDIA MANAGER Inhaled Oxygen Concentration - - Weight 71.7 kg (158 lb) 04/22/2015 8:38 PM CDT Height 182.9 cm (6' 0.01) 04/22/2015 8:38 PM CDT Body Mass Index 21.42 04/22/2015 8:38 PM CDT Plan of Treatment Health Maintenance Due Date Last Done Comments COVID-19 vaccine series (#1) 1975 Tdap 1984 Depression screening for age 12+ 1985 BMI (ht and wt on same day) for age 0806/13/1991 18+ Hepatitis C screening for age 18-79 1991 Tetanus booster 1993 Colonoscopy through age 75 2018 Lipids for age 45-75 2018 Mammogram for age 45-75 2018 Influenza for age 9-49 07/01/2022 Pap test for age 21-65 07/09/2024 07/09/2021, 07/09/2021, 12/03/2010 Results Not on filefrom Last 3 Months Insurance Payer Benefit Plan / Subscriber ID Effective Dates Phone Addre ss Type Group [employer] [place] [employer]AGE [id number] 2020-Present [address] [address] [place] [address] [employer] BLUE CROSS OF 2012-Present [id number] [place] [address] Relationship Specialty Start Date End Date Shari Huizar MD PCP - General Family Practice 12/09/[address] [place] [address]
--- OUTSIDE RECORDS SUMMARY | 2022-08-03 21:34 | XMS_ITS | Encounter Summary ---
:1975 Author Organization [facility] Address [address] [place] [address] Care Team Providers Name Role Phone Needs Pcp, Assignment Primary Care Provider Reason for Visit Reason Comments Refill Encounter Details Date Type Department Care Team Description 06/30/2015 Refill [facility] Daniel Trivedi PA-C Refill [address] [facility] [place] [address] [place] [address] [phone] (Wo rk) Social History Tobacco Use Types Packs/Day Years Used Date Smoking Tobacco: Never Smokeless Tobacco: Never Alcohol Use Standard Drinks/Week Comments No 0 (1 standard drink = 0.6 oz pure alcoho l) Sex Assigned at Date Recorded Not on file documented as of this encounter Nursing Notes Lila Katz RN - 07/01/2015 9:19 AM CDT medication approved and faxed to pharmacy. patient notified Lila Katz RN - 06/30/2015 3:17 PM CDT patient called to request refill on Tyl #3. she has an appointment 07/08/15 and would like enough to hold her over for the week PASCALE 05/08/15 herniated disk C6-7 last filled 06/06/15 #40 please approve/advise documented in this encounter Plan of Treatment Not on filedocumented as of this encounter Visit Diagnoses Not on filedocumented in this encounter Care Teams Cruise Guide Relationship Specialty Start Date End Date Needs Pcp, Assignment PCP - General 04/24/14 [place] [address] documented as of this encounter
--- OUTSIDE RECORDS SUMMARY | 2022-08-03 21:34 | XMS_ITS | Encounter Summary ---
:1975 Author Organization [facility] Address [address] [place] [address] Care Team Providers Name Role Phone Needs Pcp, Assignment Primary Care Provider Reason for Visit Reason Comments Refill Encounter Details Date Type Department Care Team Description 08/11/2015 Telephone [facility] Daniel Trivedi PA-C Refill [address] [facility] [place] [place] [address] [place] [address] [phone] (Wo rk) Social History Tobacco Use Types Packs/Day Years Used Date Smoking Tobacco: Never Smokeless Tobacco: Never Alcohol Use Standard Drinks/Week Comments No 0 (1 standard drink = 0.6 oz pure alcoho l) Sex Assigned at Date Recorded Not on file documented as of this encounter Nursing Notes Tori Tucker - 08/11/2015 1:01 PM CDT Vivek is looking to discuss a refill on her medication. She is scheduled for a follow up visit nextSunday 08/19 at 3:30 but was hoping to speak with you prior to that appointment. She will be available after 3 pm today at the number listed above. Thank you! documented in this encounter Plan of Treatment Not on filedocumented as of this encounter Visit Diagnoses Not on filedocumented in this encounter Care Teams Financial Advocate Relationship Specialty Start Date End Date Needs Pcp, Assignment PCP - General 04/24/14 [place] [address] documented as of this encounter
--- OUTSIDE RECORDS SUMMARY | 2022-08-03 21:34 | XMS_ITS | Encounter Summary ---
:1975 Author Organization [facility] Address [address], [place] [address] Care Team Providers Name Role Phone Needs Pcp, Assignment Primary Care Provider Reason for Visit Reason Comments Pre-procedure Call Encounter Details Date Type Department Care Team Description 05/20/2015 Telephone [facility] Anahi Barnes, RN Pre-procedure Call [address] [place], [place] [address] Social History Tobacco Use Types Packs/Day Years Used Date Smoking Tobacco: Never Smokeless Tobacco: Never Alcohol Use Standard Drinks/Week Comments No 0 (1 standard drink = 0.6 oz pure alcoho l) Sex Assigned at Date Recorded Not on file documented as of this encounter Nursing Notes Anahi Barnes, RN - 05/20/2015 2:10 PM CDT Pre-procedure instructions called to Vivek Reviewed Medical & Surgical History & information below: Arrival Time: 0845 Non sedation pt: Nothing 2 hours prior to procedure, Light meal ok prior to that. Encouraged pt to take prescription medications with a sip of water as usual in am. Must have helper/driver home. Reviewed NSAID use with patient: (Cervical RANJEET ONLY) Last Dose none (only using tylenol #3) Blood thinners (RANJEET & RFA only): Last Dose n/a Currently on Antibiotics? no Flu Shot/Vaccines within [...] on filedocumented in this encounter Care Teams Layboy Tender Relationship Specialty Start Date End Date Needs Pcp, Assignment PCP - General 04/24/14 [place] [address] documented as of this encounter
--- OUTSIDE RECORDS SUMMARY | 2022-08-03 21:34 | XMS_ITS | Encounter Summary ---
:1975 Author Organization [facility] Address [address] [place] [address] Care Team Providers Name Role Phone Needs Pcp, Assignment Primary Care Provider Encounter Details Date Type Department Care Team Description 05/21/2001 Orders Only Hamlet Wilson MD [address] [place], [place] [phone] [place], [place] [phone] (Wo rk) Social History Tobacco Use Types Packs/Day Years Used Date Smoking Tobacco: Never Assessed Sex Assigned at Date Recorded Not on file documented as of this encounter Plan of Treatment Not on filedocumented as of this encounter Procedures Procedure Name Priority Date/Time Associated Diagnosis Comme nts GC (N. Waiting 05/21/2001 5:26 PM Results f or this GONORRHOEAE)(14 CDT procedure ar e in YEARS AND OLDER) the results section. CHLAMYDIA (14 YEARS Waiting 05/21/2001 5:26 PM Re sults for this AND OLDER) CDT procedure are i n the results section. documented in this encounter Results GC (N. GONORRHOEAE) - 1 SWAB (05/21/2001 5:26 PM CDT) Component Value Ref Test [facility] Method Time Signature GC (N. Negative NEG REGIONS gonorrhoeae) Test Performed by PCR Assay Performed at [facility] Source CERVIX REGIONS Specimen Anatomical Collection Method Collection Time Receive d Time (Source) Location / / Volume Laterality 05/21/2001 5:26 PM 1 5:57 CDT PM CDT Hamlet Rushing MD LAB_1 Performing Organization Address [facility] Phon e Number [address] [address] [place], [place] [phone] CHLAMYDIA - 1 SWAB (05/21/2001 5:26 PM CDT) [facility] Method Time Signature Chlamydia Negative NEG REGIONS Test Performed by PCR Assay Performed at [facility] Laboratory Source CERVIX REGIONS Specimen Anatomical Collection Method Collection Time Receive d Time (Source) Location / / Volume Laterality 05/21/2001 5:26 PM 1 5:57 CDT PM CDT Hamlet Rushing MD LAB_1 Performing Organization Address [facility] Phon e Number [address] [address] [place], [place] [phone] documented in this encounter Visit Diagnoses Not on filedocumented in this encounter Care Teams Brush Finisher Relationship Specialty Start Date End Date Needs Pcp, Assignment PCP - General 04/24/14 [place] [address] documented as of this encounter
--- OUTSIDE RECORDS SUMMARY | 2022-08-03 21:34 | XMS_ITS | Encounter Summary ---
:1975 Author Organization [facility] Address [address] [address] Care Team Providers Name Role Phone Needs Pcp, Assignment Primary Care Provider Reason for Visit Reason Comments ERRONEOUS ENTRY Encounter Details Date Type Department Care Team Description 08/19/2015 Office Visit [facility] Daniel Chang ERRONE [facility] (Primary Dx) [address] [place] [address] [place], [place] [phone] (Wo rk) Social History Tobacco Use Types Packs/Day Years Used Date Smoking Tobacco: Never Smokeless Tobacco: Never Alcohol Use Standard Drinks/Week Comments No 0 (1 standard drink = 0.6 oz pure alcoho l) Sex Assigned at Date Recorded Not on file documented as of this encounter Progress Notes Daniel Chang PA-C - 09/09/2015 7:31 AM CST MATIC COIL MACHINE OPERATOR Daniel Chang PA-C - 09/09/2015 7:30 AM CST This encounter was created in error - please disregard. documented in this encounter Plan of Treatment Not on filedocumented as of this encounter Visit Diagnoses Diagnosis ERRONEOUS ENTRY - Primary documented in this encounter Care Teams Senior Erp Consultant Relationship Specialty Start Date End Date Needs Pcp, Assignment PCP - General 04/24/14 [place] [address] documented as of this encounter
--- OUTSIDE RECORDS SUMMARY | 2022-08-03 21:34 | XMS_ITS | Encounter Summary ---
:1975 Author Organization [facility] Address [address] [place] [address] Care Team Providers Name Role Phone Needs Pcp, Assignment Primary Care Provider Reason for Visit Reason Comments Pre-procedure Call Encounter Details Date Type Department Care Team Description 05/09/2015 Telephone [facility] Lucy Albrecht, Pre-procedure Call [address] [place], [place] [address] Social History Tobacco Use Types [...] on filedocumented in this encounter Care Teams Corrective Therapy Aide Teacher Relationship Specialty Start Date End Date Needs Pcp, Assignment PCP - General 04/24/14 [place], [place] [address] documented as of this encounter
--- OUTSIDE RECORDS SUMMARY | 2022-08-03 21:34 | XMS_ITS | Encounter Summary ---
:1975 Author Organization [facility] Address [address] [place] [address] Care Team Providers Name Role Phone Needs Pcp, Assignment Primary Care Provider Reason for Visit Reason Comments HAND PAIN Encounter Details Date Type Department Care Team Description 05/08/2015 Office Visit [facility] Luis Fernando Garcia, [facility] (acquired) (Primary [address] [address] Dx) [place], [place] [address] [place], [place] [phone] (Wo rk) Social History Tobacco Use Types Packs/Day Years Used Date Smoking Tobacco: Never Smokeless Tobacco: Never Alcohol Use Standard Drinks/Week Comments No 0 (1 standard drink = 0.6 oz pure alcoho l) Sex Assigned at Date Recorded Not on file documented as of this encounter Patient Instructions Patient InstructionsMaite Larios, BLANCA - 05/08/2015 11:[address] Luis Fernando Garcia MD [facility] Extrem[facility] Cio: Mickie Olmos Please contact Mickie for all surgery scheduling and administrative questions at [phone] Nurse: Merlene Kapadia Please contact Merlene for all medical related questions at [phone] Medication Requests: Prescriptions are not filled on Weekends or on Weekdays after 3:00PM For all medication refills: Request a refill using [employer] or contact your Pharmacy Please call [phone] to make future appointments. The left finger was injected with [id number] and lidocaine and marcaine. Avoid Strenuous Activity for the remainder of the day and avoid activities that cause pain for one to two weeks following the injection. Signs and Symptoms to watch for: If you have any redness, warmth or increasing pain at the site of the injection or develop a fever, please call [phone] documented in this encounter Progress Notes Luis Fernando Garcia MD - 05/10/2015 2:59 PM CDT Progress Notes signed by Luis Fernando Garcia MD at 05/14/15908 Author: Luis Fernando Garcia MD Service: (none) Author Type: Physician Filed: 05/14/15908 Note Time: 05/14/15850 Status: Signed Nicker: Luis Fernando Garcia MD (Physician) NAME: VIVEK MORALES MR#: [id number] CSN: [id number] AUTHENTICATING CLINICIAN: Luis Fernando Garcia MD CONFIRM #: [id number] LOC: 711 CLINIC PROGRESS NOTE DATE OF VISIT: 05/08/2015 : 1975 INTERIM HISTORY: Vivek returns to clinic today. I have seen her previously for a workers compensation claim regarding a left small trigger finger and left cubital tunnel syndrome. The date of her last visit was 05/02/2014. At that time, our recommendations were for a course of nocturnal splinting for her cubital tunnel syndrome, and we did a corticosteroid injection for her trigger finger. She indicates that the cubital tunnel syndrome is no longer an issue for her, but she has had a recurrence of triggering in theleft small finger. This developed 2-3 months ago. The recurrence was spontaneous. The triggering is becoming more pronounced and frequent. She also describes achy pain overlying the A1 yesy of her left small finger. Of note, she finished an oral burst of prednisone a week ago, and the finger feels better since she has completed that, but it has not resolved. PHYSICAL EXAM: There are no visible deformities. There is mild edema overlying the A1 yesy of the left small finger. There is no flexion contracture of the left small finger. She is able to make a closed composite fist. She demonstrates triggering upon extension. She is tender to palpation over the A1 yesy of the left small finger. There is a palpable nodule that has excursion with motion of the digit. The tip of the finger is otherwise pink and perfused. Sensation to light touch is unaltered. IMPRESSION: Recurrent triggering left small finger status post one previous corticosteroid injection. PLAN: I reiterated this diagnosis to Vivek. We again discussed treatment options including a second corticosteroid injection versus release of the A1 yesy. After discussing the pros and cons of these options, Vivek would like to proceed with an injection. The skin overlying the metacarpophalangeal flexion crease of the left small finger was prepped with alcohol. It was then infiltrated with 1 mL of 1% lidocaine plain. A mixture of 40 mg of Depo-Medrol and 1 mL of 0.5% Marcaine plain was then injected into the flexor tendon sheath at the level of the A1 yesy of the left small finger with good flow and localization of the injectate. Vivek tolerated this well. She is aware the steroids will take 3 days to become effective, and she may be more achy until then. She will ice and use antiinflammatoriesas needed. Follow up at her discretion. MCW:VALENTIN C: R:05/12/15 07:13 CONFIRM#:[id number] documented in this encounter Plan of Treatment Not on filedocumented as of this encounter Visit Diagnoses Diagnosis Trigger finger (acquired) - Primary documented in this encounter Care Teams Nurse Assessor Relationship Specialty Start Date End Date Needs Pcp, Assignment PCP - General 04/24/14 [place] [address] documented as of this encounter
--- OUTSIDE RECORDS SUMMARY | 2022-08-03 21:34 | XMS_ITS | Encounter Summary ---
:1975 Author Organization [facility] [place] [place] Address [address] [place] [address] Care Team Providers Name Role Phone Needs Pcp, Assignment Primary Care Provider Reason for Referral Specialty Diagnoses / Procedures Referred By Contact Refer red To Contact Daniel Chang PA-C [address] [place] [address] Referral ID Status Reason Start Date Expiration Date Visits Requ ested Visits Authorized [facility] Reason for Visit Reason Comments Physical Therapy Encounter Details Date Type Department Care Team Description 12/26/2015 Initial Consult [facility] Gil Madden [facility], Physical D, PT radiculopathy Therapy [address] [facility] [address] [facility] [place], [place] [address] [address] [place], [place] [phone] (Work) [phone] Social History Tobacco Use Types Packs/Day Years Used Date Smoking Tobacco: Never Smokeless Tobacco: Never Alcohol Use Standard Drinks/Week Comments No 0 (1 standard drink = 0.6 oz pure alcoho l) Sex Assigned at Date Recorded Not on file documented as of this encounter Progress Notes Gil Madden, PT - 12/28/2015 3:29 PM CST Physical Therapy Cervical/Thoracic Spine Evaluation/Plan of Care Visit Number: 1 Medica/Medicaid Initial Certification Period: 12/26/2015 - 03/25/16 Referring Provider: Daniel Chang PA-C MD Diagnosis: Cervical radiculopathy Orders: Evaluate & treat Precautions/Contraindications: none Date of Onset: 12/02/04/14 Standardized Functional Score: Neck Disability Index: 1750 = 34% History: Pt is a 40 y.o. female with a one year history of L cervical pain, L U/E pain and migraines. She states her pain starts in the L suboccipital region, radiates to the left cervical spina and travels down to her left shoulder, not extending past in the elbow. Intermittently her pain also travels up from the occipital region, travels up the head to the temporal and frontal regions and also includes both of her jaws. The neck pain is constant and her spectrum of pain cycles throughout the day. She describes the pain as a aching, pressure, burning sensation. Symptoms are worse with writing, work duties, homework, school and computer work. She is unable to sleep on her L side. Symptoms are improved with applying pressure to the area, laying flat on her back, heat or massage. Meds also improve her symptoms but cause her side effects such as fatigue and blurred vision. She is taking gabapentin and voltaren. She has had a brain MRI in the past in the ER. 1. Posterior disc osteophyte complex effaces the ventral thecal sac eccentric to the right at the C6-C7 level. 2. Tiny right paracentral disc protrusion effaces the ventral thecal sac at the C5-C6 level. 3. Mild narrowing of the right C3-C4 neural foramen due to uncovertebral hypertrophy. 4. Mild degenerative disc disease with associated degenerative endplate changes at the C6-C7 level. 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 Dakota Aparicio with [facility] after our appointment today. SUBJECTIVE: Pain Rating: Current pain score on a VAS is 6 / 10 Pain score on average is 6 / 10 Pain at its least is 3 / 10 Worst pain is 10 / 10 Falls in the Past Year: No. Past Medical History: See EMR for details regarding past medical history, medications and drug allergies. Past Medical History Diagnosis Date ??? Herniated disc, cervical (ACG) C6-C7 ??? Trigger finger ??? Migraines Past Surgical History Procedure Laterality Date ??? Liposuction ROS: The patient denied the symptoms with the exception of: fibromyalgia, migraines, trouble fallingasleep OBJECTIVE: General: Mood, orientation, behavior were appropriate. Patient was alert and oriented. Observation/Posture/Alignment: forward head, rounded shoulder and increased thoracic kyphosis Upper Quadrant Screen: Unremarkable ROM: Full ROM in all directions without pain Joint mobility: Side [place]: restricted in neutral R to L C4-5, all other motions were unresticted Flexibility: Scalenes: tight L side Upper Trapezius: tight L side Sub-Occipitals: tight L side Neurological Screen: Not tested Strength: Anterior Cervical Flexors: significant weakness; cervical endurance test 3-4 seconds max hold Palpation: point tenderness L lateral cervical paraspinals, C4-5; L upper trap, L subocciputals Special Tests (+ is a positive finding, - is a negative finding): Spurling: negative TREATMENT TODAY: Physical Therapy Evaluation (CPT 72314): An evaluation was performed. The patient was educated on the condition, planned therapy intervention and expectations from treatment. Goals were a collaborativeeffort of the therapist and patient. Therapeutic Exercise (CPT 71138) x 15 minutes: Performance and instructions in the following exercises designed to improve anterior cervical strength, improve thoracic and pectorial mobility: supine thoracic mobility using a foam roller supine cervical retraction on the foam roller and retraction with head lift foam roller pectorial mobility Manual therapy, 1 or more regions (CPT 68456) x 10 minutes: trigger point release techniques to the lateral paraspinals, subocciptals and upper trap; soft tissue myofascial stretching to the L cervicalparaspinals; joint mobility techniques including R to L side glides. Plan for next treatment session: manual techniques to there cervical spine, consider dry needling techniques, advance postural improvement exercises. Education/Handouts: Posture Self management of symptoms Response to treatment: Decreased pain, Good understanding of HEP ASSESSMENT: Therapist Impression: Pt presents with L cervical pain and L U/E radiculopathy. She has poor posture, tightness of the pectorials and weakness of the anterior cervical muscles. This prevents her from performing ADLs without interference. She will benefit from a guided PT program. Practice Pattern: 4B - Imparied posture Barriers to Learning: none Rehab Prognosis: Good PLAN: Planned Intervention/Education: Therapeutic Exercise, Manual Therapy, Neuromuscular Re-education, Self Care/Home Management PT Frequency/Duration: 2 x/week for 12 weeks for a total of 24 visits Discharge Plan: Goal achievement, goal achievement with home exercise program or if progress plateaus. Informed Consent: Risks, benefits and alternatives to treatment have been explained. Patient and/or family in agreement with care plan. EXPECTED FUNCTIONAL OUTCOMES/GOALS: HEP/Independent Management: Demonstrate independence with HEP and self- management following each treatment session Demonstrate correct posture and body mechanics without verbal cueing in 1 session. ADL's: Resume previous sleep pattern without awakening due to symptoms in 4-6 weeks. Perform home management tasks with ease in 6-8 weeks. Work: Resume previous level of working at the computer in 6-8 weeks. Total Treatment Time: 60 minutes Evaluation and Plan of Care completed by: Gil Madden, PT 2:57 PM 12/28/2015 Physician electronic signature indicates review and certification of therapy plan of care. [facility] documented in this encounter Plan of Treatment Scheduled Referrals Name Type Priority Associated Diagnoses Order S [facility] Physical Therapy Referral Routine Cervical radiculopathy O rdered: 12/26/2015, Expires: 2015 documented as of this encounter Visit Diagnoses Diagnosis Cervical radiculopathy Brachial neuritis or radiculitis nos documented in this encounter Care Teams Customs Port Director Relationship Specialty Start Date End Date Needs Pcp, Assignment PCP - General 04/24/14 [place] [address] documented as of this encounter
--- OUTSIDE RECORDS SUMMARY | 2022-08-03 21:34 | XMS_ITS | Encounter Summary ---
:1975 Author Organization [facility] Address [address], [place] [address] Care Team Providers Name Role Phone Needs Pcp, Assignment Primary Care Provider Reason for Visit Reason Comments ERRONEOUS ENTRY Encounter Details Date Type Department Care Team Description 06/17/2015 Office Visit [facility] Daniel Chang, [facility] (Primary Dx) [address] [place] [address] [place], [place] [phone] (Wo rk) Social History Tobacco Use Types Packs/Day Years Used Date Smoking Tobacco: Never Smokeless Tobacco: Never Alcohol Use Standard Drinks/Week Comments No 0 (1 standard drink = 0.6 oz pure alcoho l) Sex Assigned at Date Recorded Not on file documented as of this encounter Progress Notes Daniel Chang PA-C - 06/17/2015 10:05 PM CDT This encounter was created in error - please disregard. Daniel Chnag PA-C - 06/17/2015 10:04 PM CDT This encounter was created in error - please disregard. documented in this encounter Plan of Treatment Not on filedocumented as of this encounter Visit Diagnoses Diagnosis ERRONEOUS ENTRY - Primary documented in this encounter Care Teams Water Tender Relationship Specialty Start Date End Date Needs Pcp, Assignment PCP - General 04/24/14 [place] [address] documented as of this encounter
--- OUTSIDE RECORDS SUMMARY | 2022-08-03 21:34 | XMS_ITS | Encounter Summary ---
:1975 Author Organization [facility] Address [address] [place] [address] Care Team Providers Name Role Phone Needs Pcp, Assignment Primary Care Provider Reason for Visit Reason Comments Refill Encounter Details Date Type Department Care Team Description 06/06/2015 Refill [facility] Daniel Trivedi PA-C Refill [address] [place] [address] [place] [address] [phone] (Wo rk) Social History Tobacco Use Types Packs/Day Years Used Date Smoking Tobacco: Never Smokeless Tobacco: Never Alcohol Use Standard Drinks/Week Comments No 0 (1 standard drink = 0.6 oz pure alcoho l) Sex Assigned at Date Recorded Not on file documented as of this encounter Nursing Notes mEilie Maravilla RN - 06/06/2015 4:11 PM CDT Called T#3 to [facility] in [place] for patient. Patient informed medication will get filled. Emilie Maravilla RN - 06/06/2015 2:42 PM CDT Patient had C6-7 injection 05/22/15 at [facility], still having the left arm burning sensation. Rating pain7/10. Pt has appointment with you 06/17/15. Requesting T#3. Please approve or advise. Thank you. documented in this encounter Plan of Treatment Not on filedocumented as of this encounter Visit Diagnoses Not on filedocumented in this encounter Care Teams Coin Machine Collector Relationship Specialty Start Date End Date Needs Pcp, Assignment PCP - General 04/24/14 [place] [address] documented as of this encounter
--- OUTSIDE RECORDS SUMMARY | 2022-08-03 21:34 | XMS_ITS | Encounter Summary ---
:1975 Author Organization [facility] Address [address], [place] [address] Care Team Providers Name Role Phone Needs Pcp, Assignment Primary Care Provider Reason for Visit Reason Comments Post-Op Follow Up Call Encounter Details Date Type Department Care Team Description 05/23/2015 Telephone [facility] Erin Askew RN Post-Op Follow Up Call [address] [place], [place] [address] Social History Tobacco Use Types Packs/Day Years Used Date Smoking Tobacco: Never Smokeless Tobacco: Never Alcohol Use Standard Drinks/Week Comments No 0 (1 standard drink = 0.6 oz pure alcoho l) Sex Assigned at Date Recorded Not on file documented as of this encounter Nursing Notes Erin Askew, RN - 05/23/2015 8:59 AM CDT Follow up call: Left message to call back regarding procedure yesterday. documented in this encounter Plan of Treatment Not on filedocumented as of this encounter Visit Diagnoses Not on filedocumented in this encounter Care Teams Marine Driller Relationship Specialty Start Date End Date Needs Pcp, Assignment PCP - General 04/24/14 [place] [address] documented as of this encounter
--- OUTSIDE RECORDS SUMMARY | 2022-08-03 21:34 | XMS_ITS | Encounter Summary ---
:1975 Author Organization [facility] Address [address], [place] [address] Care Team Providers Name Role Phone Needs Pcp, Assignment Primary Care Provider Encounter Details Date Type Department Care Team Description 08/11/2015 Notes/Orders [facility] Daniel Chang, Shoulder pain, left CENTER PA-C (Primary Dx) [address] [facility] [place] [place] [address] [address] [place], [place] [phone] (Wo rk) Social History Tobacco Use Types Packs/Day Years Used Date Smoking Tobacco: Never Smokeless Tobacco: Never Alcohol Use Standard Drinks/Week Comments No 0 (1 standard drink = 0.6 oz pure alcoho l) Sex Assigned at Date Recorded Not on file documented as of this encounter Plan of Treatment Not on filedocumented as of this encounter Visit Diagnoses Diagnosis Shoulder pain, left - Primary Pain in joint, shoulder region documented in this encounter Care Teams Customer Supply Coordinator Relationship Specialty Start Date End Date Needs Pcp, Assignment PCP - General 04/24/14 [place] [address] documented as of this encounter
--- OUTSIDE RECORDS SUMMARY | 2022-08-03 21:34 | XMS_ITS | Encounter Summary ---
:1975 Author Organization [facility] Address [address] [place] [address] Care Team Providers Name Role Phone Needs Pcp, Assignment Primary Care Provider Reason for Visit Reason Comments Appt. Needed Encounter Details Date Type Department Care Team Description 04/11/2015 Telephone [facility] Kiana Earl MD Appt. Needed [address] [place] [address] [place] [address] [phone] (Wo rk) Social History Tobacco Use Types Packs/Day Years Used Date Smoking Tobacco: Never Smokeless Tobacco: Never Alcohol Use Standard Drinks/Week Comments No 0 (1 standard drink = 0.6 oz pure alcoho l) Sex Assigned at Date Recorded Not on file documented as of this encounter Nursing Notes Merlene Kapadia - 04/11/2015 12:49 PM CDT Pt has been seen in the past with Dr. Garcia for left small trigger finger and left cubital tunnel syndrome. Pt is having increased stiffness and pain throughout her left arm and wanted the next available appointment, which was with Dr. Kumar. Pt has missed her past [address] Garcia concerning these issues. 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 pt educated on ways to alleviate her pain including refraining from leaning on her elbows or keeping her elbow bent for long periods of time. Pt verbalized understanding, all questionsanswered. documented in this encounter Plan of Treatment Not on filedocumented as of this encounter Visit Diagnoses Not on filedocumented in this encounter Care Teams Earthmoving Plant Operator Relationship Specialty Start Date End Date Needs Pcp, Assignment PCP - General 04/24/14 [place] [address] documented as of this encounter
--- OUTSIDE RECORDS SUMMARY | 2022-08-03 21:34 | XMS_ITS | Encounter Summary ---
:1975 Author Organization [facility] Address [address] [address] Care Team Providers Name Role Phone Needs Pcp, Assignment Primary Care Provider Reason for Visit Reason Comments ERRONEOUS ENTRY Encounter Details Date Type Department Care Team Description 08/29/2015 Office Visit [facility] Daniel Chang, [facility]ON [facility] (Primary Dx) [address] [place] [address] [place], [place] [phone] (Wo rk) Social History Tobacco Use Types Packs/Day Years Used Date Smoking Tobacco: Never Smokeless Tobacco: Never Alcohol Use Standard Drinks/Week Comments No 0 (1 standard drink = 0.6 oz pure alcoho l) Sex Assigned at Date Recorded Not on file documented as of this encounter Progress Notes Daniel Chang PA-C - 09/09/2015 7:33 AM CST Daniel Chang PA-C - 09/09/2015 7:32 AM CST This encounter was created in error - please disregard. documented in this encounter Plan of Treatment Not on filedocumented as of this encounter Visit Diagnoses Diagnosis ERRONEOUS ENTRY - Primary documented in this encounter Care Teams Lumber Stacker Operator Relationship Specialty Start Date End Date Needs Pcp, Assignment PCP - General 04/24/14 [place] [address] documented as of this encounter
--- OUTSIDE RECORDS SUMMARY | 2022-08-03 21:34 | XMS_ITS | Encounter Summary ---
:1975 Author Organization [facility] Address [address] [place] [address] Care Team Providers Name Role Phone Needs Pcp, Assignment Primary Care Provider Reason for Visit Reason Comments Hand Problem Encounter Details Date Type Department Care Team Description 05/02/2014 Surgical Consult Luis Fernando Bojorquez ggashlyn finger (acquired) (Primary Dx); [facility] Finger pain, left; [address] [place] [address] [place] [address] [phone] Social History Tobacco Use Types Packs/Day Years Used Date Smoking Tobacco: Never Smokeless Tobacco: Never Alcohol Use Standard Drinks/Week Comments No 0 (1 standard drink = 0.6 oz pure alcoho l) Sex Assigned at Date Recorded Not on file documented as of this encounter Patient Instructions Patient InstructionsStFawad siegel OA-[place] - 05/02/2014 10:[address] Luis Fernando Garcia MD Hand & Upper Extremity Surgeon Info Analyst: Josi Walsh Please contact Josi for all surgery scheduling and administrative questions at [phone] Please contact GARRETT Pulliam for all medical related questions at [phone] Medication Requests: Prescriptions are not filled on Weekends or on Weekdays after 3:00PM For all medication refills: Request a refill using [facility] or contact your Pharmacy Please call [phone] to make future appointments. The left small finger was injected with [id number] and lidocaine and marcaine. Avoid Strenuous Activity for the remainder of the day and avoid activities that cause pain for one to two weeks following the injection. Signs and Symptoms to watch for: If you have any redness, warmth or increasing pain at the site of the injection or develop a fever, please call [phone] documented in this encounter Progress Notes Luis Fernando Garcia MD - 05/03/2014 4:32 PM CDT Progress Notes signed by Luis Fernando Garcia MD at 05/07/14 1030 Author: Luis Fernando Garcia MD Service: (none) Author Type: Physician Filed: 05/07/14 1030 Note Time: 05/07/14812 Status: Signed Freight Tallier: Luis Fernando Garcia MD (Physician) NAME: VIVEK MORALES MR#: [id number] CSN: [id number] AUTHENTICATING CLINICIAN: Luis Fernando Garcia MD CONFIRM #: [id number] LOC: 711 CLINIC PROGRESS NOTE DATE OF VISIT: 05/02/2014 : 1975 CHIEF COMPLAINT: Left hand injury. 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 This is a Worker's Compensation claim. In December of this year, she had a puncture wound in the palm of her left hand from a piece of glass. This happened as she was trying to open a bottle. The puncture wound was in the webspace between the ring and small fingers on the left hand. Since then, she notes that she has had some swelling and pain in the area of the A1 yesy of the small finger, and while she has not had any triggering, she has had some what she describesas stiffness or limited motion in the finger. She has also noticed that she has developed paresthesias involving the left ring and small fingers. They do occur at night and wake her from her sleep. They also occur occasionally during the day, but she cannot be specific about provocative activities. She does not have any neck pain or radicular types of symptoms. PAST MEDICAL HISTORY: None. PAST SURGICAL HISTORY: None. FAMILY HISTORY: Noncontributory. SOCIAL HISTORY: As per HPI. She lives with her daughters. She does not smoke or drink. MEDICATIONS: Updated, reviewed, and reconciled in [facility]. ALLERGIES: No known drug allergies. REVIEW OF SYSTEMS: She denies any pertinent positives with regard to her general status as well as her endocrine system. PHYSICAL EXAM: Vivek is a pleasant, well-developed, well-nourished female who is in no acute distress. She is alert and oriented x3, and she responds appropriately to the spoken word. Respirations are nonlabored. The puncture wound is not visible. There is no significant scar. She has normal resting tone in all of her fingers. FDS and FDP are intact to all fingers with blocking technique. She has swelling overlying the A1 yesy of the left small finger. She is tender to palpation in that area, and there is a palpable nodule that has excursion with motion of the digit. There is 5/5 strength in the abductor pollicis brevis, 1st dorsal intraosseous, and abductor digiti minimi. Static 2-point discrimination is 5 mm in all of her digits and specifically the radial and ulnar nerve distributions of the ring and small fingers. She has a mildly positive Tinel's over the cubital tunnel in the retrocondylar groove as well as positive ulnar nerve flexion compression. The nerve does not sublux or dislocate out of the retrocondylar groove. IMAGING: X-rays were ordered and independently reviewed. Three views of the left small finger. INDICATIONS: Puncture wound with glass. FINDINGS: No foreign bodies are seen. There is no evidence of acute or subacute trauma. No degenerative changes noted. IMPRESSION: 1. Left small trigger finger. 2. Left cubital tunnel syndrome. PLAN: I discussed both of these diagnoses with Vivek, and I do believe that the trigger finger is a result of this trauma to the base of her finger, namely the puncture wound. I do not think that the cubital tunnel syndrome, however, is a work-related injury or related to this event while at work. With regard to her cubital tunnel syndrome, I have advised her to try a nocturnal splint and instructed her on how to fabricate that with a bath towel. For the trigger finger, we discussed options including corticosteroid injection versus release of the A1 yesy. After discussing these options, we have decided upon an injection. The skin overlying the left small finger metacarpophalangeal flexion crease was prepped with alcohol. It was then infiltrated with 1 mL of 1% lidocaine plain. A mixture of 40 mg of Depo-Medrol and 1 mLof 0.5% Marcaine plain was then injected into the flexor tendon sheath at the level of the A1 pulleywith good flow and localization of the injectate. She tolerated this well. Vivek is aware that steroids will take 3 days to become effective. She may be more achy until then.She will ice and use antiinflammatories as needed. Follow up at her discretion. MCW:ISABELLA C: R:05/03/14 17:06 CONFIRM#:[id number] documented in this encounter Plan of Treatment Not on filedocumented as of this encounter Visit Diagnoses Diagnosis Trigger finger (acquired) - Primary Finger pain, left Pain in limb Lesion of ulnar nerve documented in this encounter Care Teams Ropewalk Rope Maker Relationship Specialty Start Date End Date Needs Pcp, Assignment PCP - General 04/24/14 [place] [address] documented as of this encounter
--- OUTSIDE RECORDS SUMMARY | 2022-08-03 21:34 | XMS_ITS | Encounter Summary ---
:1975 Author Organization [facility] Address [address] [place] [id number] Care Team Providers Name Role Phone Needs Pcp, Assignment Primary Care Provider Reason for Visit Reason Comments SHOULDER PAIN Encounter Details Date Type Department Care Team Description 05/08/2015 Surgical Consult [facility] Daniel Chang Hern iated disc, cervical (Primary Dx); [facility] Neck pain [address] [place] [phone] Social History Tobacco Use Types Packs/Day Years [...] - Inhaled Oxygen Concentration - - Weight 70.8 kg (156 lb) 05/08/2015 1:01 PM CDT Height 182.9 cm (6') 05/08/2015 1:01 PM CDT Body Mass Index 21.16 05/08/2015 1:01 PM CDT documented in this encounter Patient Instructions Patient InstructionsDaniela Fregoso MA - 05/08/2015 1:16 PM CDT Daniel Chang PA-C Sports Medicine and General Orthopedics Conduit Worker: Maryjane Blanco Please contact Maryjane for all administrative questions at [phone] Please call Nurse Triage at [phone] for all medical questions Fax number: [phone] Medication Requests: Prescriptions are not filled on Weekends or on Weekdays after 3:00PM For all medication refills: Request a refill using MyChart or contact your Pharmacy If you develop new or worsening symptoms call [facility] at [phone] documented in this encounter Progress Notes Daniel Chang PA-C - 05/08/2015 4:38 PM CDT [facility] Consultation 05/08/2015 Chief Complaint: Left Shoulder Pain History of Present Illness: Vivek Echeverria is a left hand dominant 39 y.o. female who presents for evaluation of left shoulderpain. The patient has been experiencing left shoulder pain for a long period of time, worsening overthe past few months. She has increased pain with use of her left upper extremity and improvement of her pain with rest. She did have a Cortisone injection recently and did try a course of steroids, however, these did not improve her pain. She does suffer from neck pain which radiates down her left arm. She voices no other associated symptoms. Review of Systems: Positive for left shoulder pain. No history of other heart, lung, liver, GI, cancers, renal, diabetes mellitus, or arthritis. Allergies: Review of patient's allergies indicates no known allergies. Current Medications: The patient currently has no medications in their medication list. Past Medical History: The patient has no past medical history on file. Past Surgical History: The patient has no past surgical history on file. Family History: The patient's family history is not on file. Social History: The patient reports that she has never smoked. She has never used smokeless tobacco. The General Medical History Form dated 05/08/2015 was updated and reviewed with the patient; this is located in [facility] in [facility]. Physical Exam: General: The patient is in no acute distress. Neuro: Answers questions appropriately. Neck: Full range of motion. Left Shoulder: Spurling's test positive. Skin is cool to touch without erythema, ecchymosis, or lesions. Rotator cuff stable. Full range of motion of cervical spine, elbow, wrist, and hand. Neurovascularly intact distally. Good capillary refill. 2+ radial pulse. This is compared bilaterally. Imaging: Radiograph of the cervical spine (05/08/2015): Mild to moderate degenerative changes are present at C6-7. Cervical vertebral bodies and disc spacesare otherwise unremarkable. Report per radiology. I ordered and independently reviewed the radiographs above; the results were discussed with the patient. Assessment: Diagnosis (ICD9) ICD-9-CM ICD-10-CM 1. Herniated disc, C6-7 722.0 M50.20 Plan: I discussed with the patient, in detail, the results of her x-ray. I recommended she have an MRI completed tomorrow to further evaluate the cause of her pain. I also discussed that she may have a Cortisone shot into her neck to try to improve her pain and follow-up with a back specialist. I recommended conservative management as well, including Ibuprofen, ice, and limiting activities, and also gave her a prescription for Tylenol #3. She voiced understanding and agreement of the information discussedand will follow-up with me after her MRI is completed. Scribe Disclosure: Amanda Oreilly, am serving as a scribe to document services personally performed by Daniel Chang PA-C at this visit, based upon the providers statements to me. All documentation has been reviewed by the aforementioned doctor prior to being entered into the official medical record. Entered on 07/2015 at 2:39 PM. Daniel Oreilly PA-C, attest that the above named individual is acting in scribe capacity, has observed my performance of the services performed at this visit and has documented them in accordance with my direction. Entered on 05/08/2015 at 2:39 PM. Daniel Chang PA-C documented in this encounter Plan of Treatment Not on filedocumented as of this encounter Procedures Procedure Name Priority Date/Time Associated Diagnosis Comme nts XR CERVICAL SPINE 3 Routine 05/08/2015 1:50 PM Herniated disc, Results for this VIEWS CDT cervical procedure are i n the results section. documented in this encounter Results XR Cervical Spine 3 Views (05/08/2015 1:50 PM CDT) Anatomical Region Laterality Modality Spine, C-Spine, Neck Other Specimen (Source) Anatomical Location Collection Method / Collectio n Time Received Time / Laterality Volume Narrative 05/08/2015 2:05 PM CDT COMPARISON: ??None. FINDINGS: ??Mild to moderate degenerativ e changes are present at C6-7. Cervical vertebral bodies and disc spaces are otherwise unremarkable. Procedure Note Gerardo Joe MD - 04/18/2016Formatti ng of this note might be different from the original. COMPARISON: None. FINDINGS: Mild to moderate degenerative changes are present at C6-7. Cervical vertebral bodies and disc spaces are otherwise unremarkable. Daniel Chang PA-C RAD [facility] documented in this encounter Visit Diagnoses Diagnosis Herniated disc, cervical ([facility]) - Primary Displacement of cervical intervertebral disc without myelopathy Neck pain Cervicalgia documented in this encounter Care Teams Director Special Education Relationship Specialty Start Date End Date Needs Pcp, Assignment PCP - General 04/24/14 [place] [address] documented as of this encounter
--- OUTSIDE RECORDS SUMMARY | 2022-08-03 21:34 | XMS_ITS | Encounter Summary ---
:1975 Author Organization [facility] Address [address] [place] [address] Care Team Providers Name Role Phone Unavailable Primary Care Provider Unavailable Reason for Visit Reason Comments SPOTTING, DURING Encounter Details Date Type Department Care Team Description 08/25/2002 Telephone Careline Fariba Dukes, SPOTTING, DURING [address] [place], [place] [address] [facility] [phone] [place] [address] Social History Tobacco Use Types Packs/Day Years Used Date Smoking Tobacco: Never Assessed Sex Assigned at Date Recorded Not on file documented as of this encounter Nursing Notes 08/25/2002 11:59 PM CDT >> CAROLYN DUNAWAY Sat Aug 25, 2002 5:28 PM >> COMPLETED ON Sat Aug 25, 2002 5:52 PM EDC 04/09 7-8 wks. Pt had not been seen in primary clinic for U/S or pelvic exam during thispregnancy. Notes from [facility] in [facility]--spontaneous miscarriage, quantitative HCG d rawn. Pt is to go in to primary clinic on Tuesday for 2nd quant HCG and f/u.TRIAGE REFERENCE: B LEEDING DURING THE FIRST TRIMESTER - & CNG (c) 2000 STAT SYMPTOMS: None per guideline HISTORY Has patient had ultrasound: no BLEEDING Onset of bleeding: last night following intercourse. Pt is not currently bldg. CRAMPING/PAIN OB abdominal pain questions: abdomen is not tender and nauseated Pain severity: none Pain in the neck or shoulders is not present HOME TREATMENT Reassure Advised to rest and to avoid heavy lifting Avoid intercourse until seen by provider, also no tampons or douching To call back if: bldg returns, abdominal pain, s/s shock Told pt that further tests, such as an U/S and a f/u quant HCG, will be able to determine whether th e pt has a viable or nonviable and whether she has miscarried. Told pt that it is possible that the bldg may be related to cervical bldg, due to intercourse. Pt should call clinic on Tuesday for a f/u appt; pt agreeable to plan. >> FARIBA DUKES Sat Aug 25, 2002 5:08 PM >> CALL RECEIVED. Contact: Concern: 8 weeks with her 2nd , and she went to the physician this morning in [facility] due to bleeding at 3:00 am, and was told there was tissure around the cervix. Pt. has questi ons about what she is waiting for and why she is so nauseated. Sees a physician at [facility]. Plan: careline OB nurse to complete assessment documented in this encounter Plan of Treatment Not on filedocumented as of this encounter Visit Diagnoses Not on filedocumented in this encounter
--- OUTSIDE RECORDS SUMMARY | 2022-08-03 21:34 | XMS_ITS | Encounter Summary ---
:1975 [facility] Address [address] [address] Care Team Providers Name Role Phone Needs Pcp, Assignment Primary Care Provider Reason for Referral Specialty Diagnoses / Procedures Referred By Contact Refer red To Contact Daniel Chang PA-C [address] [place] [address] Referral ID Status Reason Start Date Expiration Date Visits Requ ested Visits Authorized [employer] Reason for Visit Reason Comments CONSULT Encounter Details Date Type Department Care Team Description 12/26/2015 Initial Consult [facility] Dakota Aparicio Myofascial pain (Primary Dx) ; [address]ers MD Cervical radiculopathy [address] [id number] [phone] Social History Tobacco Use Types Packs/Day Years Used Date Smoking Tobacco: Never Smokeless Tobacco: Never Alcohol Use Standard Drinks/Week Comments No 0 (1 standard drink = 0.6 oz pure alcoho l) Sex Assigned at Date Recorded Not on file documented as of this encounter Last Filed Vital Signs Vital Sign Reading Time Taken Comments Blood Pressure 153/86 12/26/2015 2:53 PM [employer] Pulse 90 12/26/2015 2:53 PM [employer] Temperature - - Respiratory Rate 18 12/26/2015 2:53 PM [employer] Oxygen Saturation - - Inhaled Oxygen Concentration - - Weight 75.3 kg (166 lb) 12/26/2015 2:53 PM [employer] Height 182.9 cm (6' 0.01) 12/26/2015 2:53 PM [employer] Body Mass Index 22.51 12/26/2015 2:53 PM [employer] documented in this encounter Patient Instructions Patient InstructionsDakota Aparicio MD - 12/26/2015 4:01 PM CST 1) Magnesium glycinate 400mg tabs - over the counter - can use this as a muscle relaxant. 2) Robaxin 500mg - can take up to twice a day as needed for severe pain flares. Can cause sedation and can be habit forming. Not for daily dosing. #20 tabs. 3) Mobic 15mg daily - don't take other NSAIDS while on this medication. 4) Small amount of Dallas 5/325mg for severe pain flares #15 tabs. Do not take this with Robaxin. 5) Tylenol - can use up to 1000mg three times a day (3000mg a day is max) this is equal to 5mg of oral morphine in some studies. 6) You can take courses of these medications (several days, weeks, etc) and then take a holiday (NSAIDS and tylenol). 7) Continue with physical therapy - I think you will get benefit from this 8) Compounding cream to apply to your neck. 9) Cymbalta 30mg daily, then increase to 60mg daily after 7 days. For the Dallas and Robaxin - want to shy away for regular dosing and refills. Just for severe pain flares. Cervical MRI results 0.8 cm x 1.9 cm cystic appearing mass within the left lobe of the thyroid gland is indeterminate onthis examination. If clinically indicated, consider ultrasound for further evaluation. ??? Serotonin syndrome: another rare, but serious and possibly life-threatening side effect is serotonin syndrome. This can occur while on other medications enhancing serotonin activity (anti-depressants such as SSRIs, SNRIs, certain tricyclic antidepressants, and monoamine oxidase inhibitors). Certain patients can tolerate cymbalta in conjunction with such agents (flexeril), but only if they are aware of the risks, monitor for them, and take the medication as prescribed. Signs and symptoms of serotonin syndrome include tremors, diaphoresis, fevers, elevated heart rate, agitation, excitement, confusion. Seek immediate medical attention if any of these rare but very serious side effects occur. ??? The risks and benefits of the [...] several weeks before pain relief is noticed. ??? Withdrawal effects can occur with stopping this medication abruptly. Opioid prescription: There is poor evidence for long-term pain control, and there are inherent riskswith the therapy. Nonetheless, some patients achieve significant analgesia and functional benefit from the treatment. Overall, the main goal of the opioid therapy is to increase function, thus allowingone to continue with daily exercises, prevent deconditioning, and prevent the development of furtherpain generators. Risks of opioids discussed at today???s visit. ??? Physical dependence (you need to continue [...] carry the risk of bowel obstruction if ignored. ??? Nausea ??? Sleep apnea - may [...] during certain times atnight. Driving with opioids: The best available evidence demonstrates impairment following acute administration of opioids or an increase in opioid dosage, but impairment diminishes with chronic, stable opioid usage Pain Physician. (2012 Joe;15(3 Suppl):MS570-27) This article would argue one could drive safely with stable doses of such medications, but only after reaching stable doses. The same may be true with other potentiallysedating medications. Regardless, in some states, it is illegal to drive with any amount of an impairing drug; this includes [place] and [place]. The presence of such metabolites could lead to an in toxication charge. Drivers could therefore be held liable for injuries and damages when operating machinery while taking sedating medications. It is ALWAYS illegal to drive while impaired by any substance, including opioids and benzodiazepines, in ALL states. As laws can loom changeover operator time, one should review the state government website to understand the laws governing driving while on prescription medications, such as opioids. Safe Storage of Opioids At today's visit we discussed the importance of safe storage of controlled substances. The importance of keeping these medications locked from family members or children. NSAIDS are a type of medication that reduce the inflammation in the body. The risks and benefits were discussed at today???s visit. Overall, the medication is well tolerated and most people don???t experience any side effects. Most common side effects include swelling, rashes, itching, dizziness, headaches, and nausea. The medication can affect platelet function and lead to increased bleeding risks. Blood pressure can be elevated, so you should monitor your BP daily while starting the medication. Rare but serious side effects include o Asthma attacks o Serious allergic reaction and anaphylaxis o Stomach ulcers that can bleed, this can increase if you are also on blood thinning agents such as aspirin, Plavix, or Coumadin. o Decrease blood flow to the kidney, leading to kidney injury o Can cause swelling and increases in blood pressure o BLACK BOX WARNING: The risk of potentially fatal cardiovascular thrombotic (blood clots) events, heart attacks, and stroke may be increased with NSAID use. Cardiovascular disease, risk factors for Cardiovascular disease, and longer treatment durations may further increase this risk. The risk of serious GI events, such as bleeding, ulceration, and potentially fatal stomach or intestinal perforation,is increased with NSAID use. o The serious side effects of these side effects typically occur in patients over the age of 65 and those who are on long-term therapy. o Therefore, current recommendations are to use the lowest effective dose for shortest possible duration and monitoring recommended. o This medication can be stopped at any time if you do not tolerate it or experience side effects. [employer] documented in this encounter Progress Notes Dakota Aparicio MD - 12/26/2015 4:21 PM CST Images from the original note were not included. Interventional Pain Consult Note Chief complaint: Chief Complaint Patient presents with ??? Consult neck pain radiating into left arm Referring provider: Batsheva HPI: Vievk Echeverria is a pleasant 40 y.o. female with a past medical history of migraines who was referred to the pain clinic for evaluation for neck and upper arm pain. The worst pain is the left side ofher neck - the pain travels down to her left shoulder - it does not go past the elbow or into the hands. It also travels up the occipital region, travels up the head to the temporal and frontal regions, and it comes out the nostril and also includes both of her jaws. She reports that this representsabout 100 % of her overall body pain. The neck pain persists, but this spectrum of pain cycles throughout the day. She describes the pain as a aching, pressure, burning sensation. No visual problem, but has had migraines which started about 4 years ago. The migraines in some capicity mimic the left sided head pain. She has had a brain MRI in the past in the ER. The pain started about 1 year without any inciting event. 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 Denies any facial swelling, dyspnea, dyphagia, color changes, arm swelling, chest pain, visual changes, or confusion. Imaging: Cervical MRI IMPRESSION: 1. Posterior disc osteophyte complex effaces the [...] consider ultrasound for further evaluation. Pertinent Medications: gabapentin 2-4 tabs a day - this is helpful with the head pain. Doesn't help the shoulder pain. Voltaren 75mg - took 2 pills - didn't help Just takes advil - 4 tabs up to BID Medications poorly tolerated in the past none noted Previous Medications: flexeril lidocaine patch tramadol tylenol #3 Procedures: Cervical epidural 05/22/15 Physical Therapy: Just started physical therapy - first session 12/26/15 - did alleviate some pain. (For women) She denies any chance of and is not attempting to get . Opioid functional assessment and risk assessment: ?? The patient states she is not currently taking narcotics for pain ?? The patient states opioids do increase her level of function. ?? Personal review of [place] Prescription Monitoring System, and any other available, [...] Factors: Reports No issues with depression Reports No issues with anxiety Denies any suicidal or homicidal ideation. The patient has not seen a behavorial health specialist before. History Social History ??? Marital Status: Single Spouse Name: N/A Number of Children: N/A ??? Years of Education: N/A Occupational History ??? Not on file. Social History Main Topics ??? Smoking status: Never Smoker ??? Smokeless tobacco: Never Used ??? Alcohol Use: No ??? Drug Use: No ??? Sexual Activity: Not on file Other Topics Concern ??? Caffeine Concern Yes 2 or more ??? Sleep Concern Yes ??? Exercise No Social History Narrative Smoking: None Alcohol: None Personal history of substance abuse: None Family history of substance abuse: alcoholism There is not pending litigation related to the presenting pain condition. Medications Current Outpatient Prescriptions on File Prior to Visit Medication Sig Dispense Refill ??? [DISCONTINUED] acetaminophen-codeine (TYLENOL #3) 300-30 mg per tablet Take 1-2 tablets by mouthevery 4 hours as needed for Pain. Maximum of 13 tablets/24 hours. Indications: PAIN 40 tablet 0 ??? [DISCONTINUED] acetaminophen-codeine (TYLENOL #3) 300-30 mg per tablet Take 1-2 tablets by mouthevery 4 hours as needed for Pain. Maximum of 13 tablets/24 hours. Indications: PAIN 40 tablet 0 ??? gabapentin (NEURONTIN) 300 mg capsule Take 300 mg by mouth 3 times daily. No current facility-administered medications on file prior to visit. Past Medical History: Past Medical History Diagnosis Date ??? Herniated disc, cervical (ACG) C6-C7 ??? Trigger finger ??? Migraines Past Surgical History: Past Surgical History Procedure Laterality Date ??? Liposuction Family History: See above Social History: History Social History ??? Marital Status: Single Spouse Name: N/A Number of Children: N/A ??? Years of Education: N/A Occupational History ??? Not on file. Social History Main Topics ??? Smoking status: Never Smoker ??? Smokeless tobacco: Never Used ??? Alcohol Use: No ??? Drug Use: No ??? Sexual Activity: Not on file Other Topics Concern ??? Caffeine Concern Yes 2 or more ??? Sleep Concern Yes ??? Exercise No Social History Narrative Allergies: No Known Allergies Review of Systems: ROS The following ROS were of reviewed with the patient (see list below). The patient denied the symptoms listed below with the exception of: migraines, trouble falling asleep Sleep: trouble falling asleep, snoring, sleep apnea [...] psychosis Pertinent Labs/Test Results and Dates: No components found for: PLTS No results found for: CREATININE No results found for: HGBA1C Objective BP 153/86 mmHg Pulse 90 Resp 18 Ht 1.829 m (6' 0.01) Wt 75.297 kg (166 lb) BMI 22.51 kg/m2 Body mass index is 22.51 kg/(m^2). Appearance: Grooming: appropriate Level of Distress: NAD [...] cervical paraspinal tenderness leftregions. Trigger points were identified. There is no pain with neck extenstion There is no pain with neck oblique extension to the right There is no pain with neck rotation to the right There is no pain with neck oblique extension to the left There is no pain with neck rotation to the left There is no pain with neck flexion Cervical ROM makes the neck pain better. Overall, there is not limited cervical ROM with secondary to pain. Spurling's test is negative on the right and negative on the left. Bellamy's test is negative bilaterally Range of motion is grossly intact at the shoulder, elbow, wrist, and thoracic spine. babinski is negative bilaterally No ankle clonus Motor strength exam reveals: Shoulder abduction R [...] Making Records Reviewed: ?? The report by Daniel Herman dated 07/10/15 was reviewed. This was important and useful because the patient's history was corroborated in the reviewed note. ?? Imaging and lab values noted above were reviewed and are important for subsequent medical decision making. ?? Review of the Risk Comorbidities: At this juncture, I believe that the patient's refractory pain status adds moderate risk and complexity to the treatment plan Assessment: 1. Myofacial pain in the neck and shoulder 2. Chronic migraines 3. Left jaw pain - possibly TMG Vivek is a 40 y.o. year-old female with chronic left neck, jaw, trapezius, and left shoulder regionpain. No significant evidence of shoulder pathology. Looking at her imaging, and lack of response from her cervical epidural, I am not convinced her painis coming from her cervical spine. Her cervical MRI demonstrates small changes - C5/6 paracentral disc protrusion, and C6-7 posterior disc osteophyte complex, but these are anatomically on the RIGHT side, and her symptoms are on her left. Furthermore, she feels that the pain sometimes include her leftnostril and jaw, which is not the typical radicular referral pattern. I suspect there is a degree ofmyofascial pain. At this point, I would recommend formal physical therapy - her first visit was today and she did note some relief. I would also recommend then transitioning to a routine exercise program with aerobic activity for general well being. 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 She would like something that would allow her to function without over sedation. She feels that the gabapentin is helpful but is overly sedating. Thus we came up with a plan for mobic, Tylenol, cymbalta, and compounding creams as non-sedating alternatives. I reviewed the risks and benefits of the medication and included this in the AVS. In terms of severe pain flares, I did provide a small refill for robaxin and Dallas. Risks were againdiscussed and I instructed her not to take together. I told her this is not to be a daily dosing or routine medication as both are habit forming and poor adjuvants for chronic pain. She was in agreement with this plan. Because of the multiple pharmacological options provided today, I told her I would like to follow-upwith her in 4-6 weeks to see how she is doing. If she has any issues in the interim she can contact my office. Future considerations: trigger point injections, occipital nerve blocks, living well consultation. If pain persists, may also consider a neurology consult given migraine history. Plan: 1) Magnesium glycinate 400mg tabs - over the counter - can use this as a muscle relaxant. 2) Robaxin 500mg - can take up to twice a day as needed for severe pain flares. Can cause sedation and can be habit forming. Not for daily dosing. #20 tabs. 3) Mobic 15mg daily - don't take other NSAIDS while on this medication. 4) Small amount of Dallas 5/325mg for severe pain flares #15 tabs. Do not take this with Robaxin. 5) Tylenol - can use up to 1000mg three times a day (3000mg a day is max) this is equal to 5mg of oral morphine in some studies. 6) You can take courses of these medications (several days, weeks, etc) and then take a holiday (NSAIDS and tylenol). 7) Continue with physical therapy - I think you will get benefit from this 8) Compounding cream to apply to your neck. 9) Cymbalta 30mg daily, then increase to 60mg daily after 7 days. Dakota Aparicio M.D. Anesthesia and Interventional Pain [employer] Erin Askew RN - 12/26/2015 2:56 PM CST Patient here for consult procedure. Patient rates pain in neck radiating into left arm, 6/10 at rest, 6/10 with activity. [employer] Anahi Barnes RN - 12/26/2015 2:41 PM CST Images from the original note were not included. [employer] for consult [employer] documented in this encounter Plan of Treatment Scheduled Referrals Name Type Priority Associated Diagnoses Order S chedule Pain-Medical Adult Referral Routine Cervical radiculopathy Ordered: 12/26/2015, Consult [facility] Expires: 2015 documented as of this encounter Visit Diagnoses Diagnosis Myofascial pain - Primary Mylagia and myositis, unspecified Cervical radiculopathy Brachial neuritis or radiculitis nos documented in this encounter Care Teams Director Of Teaching And Learning Relationship Specialty Start Date End Date Needs Pcp, Assignment PCP - General 04/24/14 [place] [address] documented as of this encounter
--- OUTSIDE RECORDS SUMMARY | 2022-08-03 21:34 | XMS_ITS | Encounter Summary ---
:1975 Author Organization [email or web address] Address [address] [place] [address] Care Team Providers Name Role Phone Needs Pcp, Assignment Primary Care Provider Reason for Visit Reason Comments Neck Pain Encounter Details Date Type Department Care Team Description 05/22/2015 Procedure Visit [facility] Dakota Aparicio MD [address] [place] [address] Neck Pain [address], [facility] [place], [place] [address] Social History Tobacco Use Types Packs/Day Years Used Date Smoking Tobacco: Never Smokeless Tobacco: Never Alcohol Use Standard Drinks/Week Comments No 0 (1 standard drink = 0.6 oz pure alcoho l) Sex Assigned at Date Recorded Not on file documented as of this encounter Last Filed Vital Signs Vital Sign Reading Time Taken Comments Blood Pressure 120/80 05/22/2015 9:50 AM CDT Pulse 76 05/22/2015 9:50 AM CDT Temperature - - Respiratory Rate 18 05/22/2015 9:50 AM CDT Oxygen Saturation 95% 05/22/2015 9:50 AM CDT Inhaled Oxygen Concentration - - Weight 70.8 kg (156 lb) 05/22/2015 8:19 AM CDT Height 181.6 cm (5' 11.5) 05/22/2015 8:19 AM CDT Body Mass Index 21.45 05/22/2015 8:19 AM CDT documented in this encounter Patient Instructions Patient InstructionsAnahi Barnes RN - 05/22/2015 8:31 AM CDT FOLLOW UP PLAN: Please follow up with your referring provider, Dr Matt Herman in 10 days. Please call [phone] to schedule an appointment if you do not already have one. Cervical Epidural Injection Post-Procedure Instructions: ?? Rest today ?? Refrain from driving until tomorrow ?? Apply ice to site (20 minutes on/ 20 minutes off) for the next 48 hours if you experience any soreness or pain. ?? No heat to site for next 48 hours ?? No tub baths, pools, hot tubs or lakes for 2 days. You may shower. ?? Resume your regular diet and medications (Blood thinners per the chart you were given). ?? If you experience shortness of breath, pain when breathing, or severe swelling, perineal numbness, loss of bowel or bladder control, or progressive extremity weakness that does not resolve in 6 hours notify the doctor. If it is after normal clinic hours (8a-4p), go to the nearest emergency room for evaluation. ?? You may experience the following symptoms up to 6 hours after your injection: ?? Warmth ?? Tingling ?? Heaviness ?? Numbness ?? Flushing in face ?? If the symptoms last more than 12 hours, call the doctor If you have a severe headache that goes away when lying down, this may be a spinal headache - thisis not an emergency, but please alert our team so we can help you manage it. Dr. Dakota Aparicio MD Interventional Pain Physician and Anesthesiologist Please contact the Pain Nurse ([phone]) for all medical/procedural questions regarding your care at the [facility] Please contact [place] ([phone]) for all administrative/scheduling questions related to the [facility] Medication Requests: Prescriptions requiring refills must be requested from the prescribing physician. If Dr. Aparicio prescribed your medication, call the number above. If any other physician prescribed your medication, please contact his or her office to discuss. documented in this encounter Progress Notes Dakota Aparicio MD - 05/22/2015 1:08 PM CDT Procedure: Cervical interlaminar epidural steroid injection with fluoroscopy at levels C7/T1 with a midline approach PREOPERATIVE DIAGNOSIS: Diagnosis (ICD9) and Associated Orders ICD-9-CM ICD-10-CM 1. Cervical radiculitis 723.4 M54.12 ME NJX DX/THER SBST EPIDURAL/SUBRACH CERV/THORACIC ME DEXAMETHASONE SODIUM PHOS ME FLUORO NEEDLE/CATH SPINE/PARASPINAL DX/THER XR CLIN OMNIPAQUE 200-299 MGML 20ML 2. Herniated disc, C6-7 722.0 M50.20 POCT urine POSTOPERATIVE DIAGNOSIS: Diagnosis (ICD9) and Associated Orders ICD-9-CM ICD-10-CM 1. Cervical radiculitis 723.4 M54.12 ME NJX DX/THER SBST EPIDURAL/SUBRACH CERV/THORACIC ME DEXAMETHASONE SODIUM PHOS ME FLUORO NEEDLE/CATH SPINE/PARASPINAL DX/THER XR CLIN OMNIPAQUE 200-299 MGML 20ML 2. Herniated disc, C6-7 722.0 M50.20 POCT urine Interventionalist: Dakota Aparicio M.D. INDICATIONS FOR PROCEDURE: This is a 39 y.o. year old female with a clinical picture consistent with the above-mentioned diagnosis, resulting in radicular pain to the left upper extremity. She was evaluated by Daniel Herman PA-C who recommended a cervical epidural. I reviewed the MRI images I told the patient to follow-up with her PCP regarding the thyroid nodules on the MRI. Informed Consent: I discussed the risks of the procedure with the patient in-depth, which includes but not limited to bleeding, tissue damage, increased pain, no pain relief; side effects from the steroids such as hypertension, hyperglycemia, mood changes; rare side effects such as hematoma/bleeding, infection, strokes, anaphylaxis, permanent nerve injury, paralysis and loss of limb function. The risk, benefits and alternatives to the procedure were reviewed with the patient. The patient's / responsible libertarian's questions were answered. The patient / responsible libertarian appeared to understand and chose to proceed. Level: C7/T1 Sedation - none IV Fluids - none Tuohy Needle Type: 20 gauge 3.5 inch Tuohy Loss of Resistance Depth - 5 cm Contrast Dye - 1 ml of isovue 200M dye (from a 10ml vial) Injected Steroid Solution: 10mg of decadron Additional Medications Administered: 2ml of PF saline Estimated Blood Loss - None Drains: None Specimens Removed: None Urine Output - Not Measured Complications: None Outcome: Good After obtaining written consent, the patient was taken back to the fluoroscopy suite and placed in aprone position with a pillow under the chest to decrease lordosis. The skin overlying the injection site was prepped and draped in an aseptic fashion. The target vertebral interspace (see above) was identified by AP fluoroscopy. Procedural Pause: A procedural pause verifying correct patient, allergies, and surgical site was performed immediately prior to beginning the procedure. The skin and subcutaneous tissue overlying the target site of injection was anesthetized using 6 ml of 1% lidocaine MPF with a 25-gauge, 1?? -inch needle. The above noted Tuohy needle was advanced under fluoroscopic guidance towards the epidural space. Lateral fluoroscopic imaging was used to confirm depth. The epidural space was identified using a loss of resistance to saline technique. (See above for loss of resistance depth). A microbore extension tubing was attached to the needle to minimize any movement of the needle during injection or syringe change. After negative aspiration for heme or CSF, contrast was injected and outlined the epidural space. There was no evidence of vascular or intrathecal spread. After repeat negative aspiration for hemeor CSF, the above noted steroid solution was slowly injected in increments. The needle was then retracted approximately group home and the needle track was flushed with 0.5 ml of 1% lidocaine to clear theneedle prior to removal. The Tuohy needle was then removed. A sterile bandage was placed over the injection site. The heart rate, pulse oximetry, were continuously monitored throughout the procedure. The patient tolerated the procedure well. She was carefully escorted to the recovery room in stable condition. After meeting discharge criteria, the patient was discharged home. DISCUSSION: Conditions of the spine that result in spinal nerve root irritation such as disc protrusions, spinalstenosis, or post surgical radiculitis often respond favorably to epidural steroid injections. The goal in performing epidural steroid injections is to provide relief from pain and permit greater function. Today we performed an interlaminar epidural steroid injection. The patient was informed that it may take several days for the epidural steroid medication to reach its full efficacy and she should continue her regular pain medications as prescribed. The patient was advised to relax and [...] she should contact the pain clinic immediately and seek urgent evaluation. RECOMMENDATIONS: 1. Repeating the injection may provide improved and/or prolonged pain relief and allow for better functional outcomes. We will plan to have the patient follow up with Daniel JULES. She can call the pain clinic with additional questions. 2. The patient was instructed not to drive for the rest of the day. 3. Additional recommendations: None Dakota Aparicio MD 9:29 AM 05/22/2015 Anahi Barnes RN - 05/22/2015 9:59 AM CDT Patient tolerated procedure well, vital signs stable. Post-procedure pain level 1/10 at rest, 1/10 with activity. Discharge instructions given (written & verbal review), patient verbalized understanding. 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 Leyla Mendez RN - 05/22/2015 8:35 AM CDT Patient here for CANDICE procedure. Patient rates pain in neck and left arm, at rest 4/10, with activity 4/10. Verified NPO status. Pre-op teaching completed, patient verbalizes understanding. Consent perMD. documented in this encounter Plan of Treatment Not on filedocumented as of this encounter Procedures Procedure Name Priority Date/Time Associated Comments Diagnosis FL C ARM 30 PAIN Routine 05/22/2015 9:18 AM Herniated disc, Re sults for this MANAGEMENT CDT cervical procedure are i n the results section. POCT URINE Routine 05/22/2015 8:36 AM Herniated disc , Results for this CDT cervical procedure are i n the results section. documented in this encounter Results FL C Arm 30 Pain Management (05/22/2015 9:18 AM CDT) Anatomical Region Laterality Modality Other Specimen (Source) Anatomical Location Collection Method / Collectio n Time Received Time / Laterality Volume Narrative 05/22/2015 9:28 AM CDT Images obtained during surgical procedur e. See procedure note in Epic on this date. Procedure Note Guard Supervisor Ap, Radiology - 04/18/2016 Images obtained during surgical procedur e. See procedure note in Epic on this date. Daniel Chang PA-C RAD FL POCT URINE (05/22/2015 8:36 AM CDT) [facility] gist Method Time Signature Urine Negative HP CONVERSION Test - POC Control Line Yes HP CONVERSION Present, Clear Background - Internal control Cartridge Lot# [id number] HP CONVERSION Specimen (Source) Anatomical Collection Method Collection Time Re ceived Time Location / / Volume Laterality 05/22/2015 8:36 AM CDT Dakota Aparicio MD PN POINT OF CARE TESTS Performing Organization Address City/State/ZIP Code Phon e Number HP CONVERSION documented in this encounter Visit Diagnoses Diagnosis Cervical radiculitis - Primary Brachial neuritis or radiculitis nos Herniated disc, cervical ([facility]C) Displacement of cervical intervertebral disc without myelopathy documented in this encounter Care Teams Food Safety Field Specialist Relationship Specialty Start Date End Date Needs Pcp, Assignment PCP - General 04/24/14 [place] [address] documented as of this encounter
--- OUTSIDE RECORDS SUMMARY | 2022-08-03 21:34 | XMS_ITS | Encounter Summary ---
:1975 Author Organization [facility] Address [address] [place] [address] Care Team Providers Name Role Phone Unavailable Primary Care Provider Unavailable Encounter Details Date Type Department Care Team Description 05/21/2001 Office Visit [facility] ABDOMINAL PAIN OTHER SPEC SI TE; [address] [facility]. [place] [address] Social History Tobacco Use Types Packs/Day Years Used Date Smoking Tobacco: Never Assessed Sex Assigned at Date Recorded Not on file documented as of this encounter ED Notes Hamlet Rushing P - 05/21/2001 12:00 AM CDTLog Number: [id number] COMPLAINT: Emergency contraception request. HISTORY OF PRESENT ILLNESS: This is a 25-year-old lady who was having intercourse just before coming into the emergency room when the condom broke, and she presents now for post-coital contraception. It should be noted that the patient is currently mid-cycle. PAST MEDICAL HISTORY: None. CURRENT MEDICATIONS: Celexa. ALLERGIES: NONE. REVIEW OF SYSTEMS: Negative except for the current complaint. PHYSICAL EXAMINATION: Reveals a 25-year-old woman in no acute distress. Vital signs are stable. HEENT: Without acute findings. NECK: Supple. LUNGS: Clear to auscultation bilaterally. HEART: Regular rate and rhythm without murmur. ABDOMEN: Soft and nontender. Bowel sounds normoactive. PELVIC: Unremarkable. No masses, nodes, or tenderness. Uterus is small and anterior. A SPT was sent for hCG determination and it is negative. PLAN: Patient is started on Plan B. She is to take one pill today and then one pill in 12 hours. Also, she is given a prescription for Compazine for nausea. She is to follow up with her doctor if her period does not come within one month. santi Dictated: 05/22/2001 02:19:48 Hamlet Rushing MD Transcribed: 05/22/2001 22:41:29 Doc #: [id number] cc: ISELA Ramires, Primary 1 Page 1 Patient Name: VIVEK MORALES Visit Date: 05/21/2001 EMERGENCY MEDICINE NOTE CONFIDENTIAL MEDICAL RECORD [address] [id number] Page 1 Patient: VIVEK MORALES Location: [facility] HPN: Date of : 1975 Visit Date: 05/21/2001 EMERGENCY MEDICINE NOTE documented in this encounter Plan of Treatment Not on filedocumented as of this encounter Visit Diagnoses Diagnosis Abdominal pain, other specified site General counseling for prescription of o ral contraceptives documented in this encounter
--- OUTSIDE RECORDS SUMMARY | 2022-08-03 21:34 | XMS_ITS | Encounter Summary ---
:1975 Author Organization [facility] Address [address], [place] [address] Care Team Providers Name Role Phone Needs Pcp, Assignment Primary Care Provider Encounter Details Date Type Department Care Team Description 05/22/2015 Imaging [facility] Herniated disc, cervical [address] [place], [place] [address] Social History Tobacco Use Types [...] Priority Date/Time Associated Diagnosis Comme nts MR CERVICAL SPINE Routine 05/22/2015 8:03 AM Herniated disc, R esults for this WO IV CONT CDT cervical procedure are i n the results section. documented in this encounter Results MR Cervical Spine WO IV Cont (05/22/2015 8:03 AM CDT) Anatomical Region Laterality Modality Spine, C-Spine, Neck, Vascular Other Specimen (Source) Anatomical Location Collection Method / Collectio n Time Received Time / Laterality Volume Impressions 05/22/2015 8:48 AM CDT IMPRESSION: ?? 1. Posterior disc osteophyte complex eff aces the ventral thecal sac eccentric to the right at the C6-C7 level. 2. Tiny right paracentral disc protrusio n effaces the ventral thecal sac at the C5-C6 level. 3. Mild narrowing of the right C3-C4 philip ral foramen due to uncovertebral hypertrophy. 4. Mild degenerative disc disease with a ssociated degenerative endplate changes at the C6-C7 level. 5. 0.8 cm x 1.9 cm cystic appearing mass within the left lobe of the thyroid gland is indeterminate on this examination. If clinically indicated, consider ultrasound for further evaluation. Narrative 05/22/2015 8:48 AM CDT INDICATION: neck pain r/o disc TECHNIQUE: ??MRI of the cervical spine w ithout contrast. COMPARISON: ??None. FINDINGS: ??The visualized midline poste rior fossa structures are unremarkable. ??Normal cord signal. ??Degenerative disc disease with mild degenerative endplate changes at the C6-C7 level. Small Schmor l's node superior endplate of C7 with as sociated reactive changes. ??Normal alignment. 0. 8 cm x 1.9 cm cystic appearing mass within the left lobe of the thyroid gland is indeterminate on this examination. Probable small hemangioma within the posterior elements of T4 on the left.. ? Axial: C2-3: Unremarkable. C3-4: Uncovertebral hypertrophy causes m ild narrowing of the right neural foramen. C4-5: Unremarkable. ?? C5-6: Tiny right paracentral disc protru jyoti effaces the ventral thecal sac. C6-7: Posterior disc osteophyte complex effaces the ventral thecal sac eccentric to the right. The neural foramen are patent. C7-T1: Unremarkable. Procedure Note Taran Chery MD - 04/18/2016Forma tting of this note might be different from the original. INDICATION: neck pain r/o disc TECHNIQUE: MRI of the cervical spine wit hout contrast. COMPARISON: None. FINDINGS: The visualized midline posteri or fossa structures are unremarkable. Normal cord signal. Degenerative disc disease with mild degenerative endplate changes at the C6-C7 level. Small Schmorl's node superior endplate of C7 with associated reactive changes. Normal alignment. 0.8 cm x 1.9 cm cystic appearing mass within the left lobe of the thyroid gland is indeterminate on this examination. Probable small hemangioma within the posterior elements of T4 on the left.. Axial: C2-3: Unremarkable. C3-4: Uncovertebral hypertrophy causes m ild narrowing of the right neural foramen. C4-5: Unremarkable. C5-6: Tiny right paracentral disc protru jyoti effaces the ventral thecal sac. C6-7: Posterior disc osteophyte complex effaces the ventral thecal sac eccentric to the right. The neural foramen are patent. C7-T1: Unremarkable. IMPRESSION IMPRESSION: 1. Posterior disc osteophyte complex eff aces the ventral thecal sac eccentric to the right at the C6-C7 level. 2. Tiny right paracentral disc protrusio n effaces the ventral thecal sac at the C5-C6 level. 3. Mild narrowing of the right C3-C4 philip ral foramen due to uncovertebral hypertrophy. 4. Mild degenerative disc disease with a ssociated degenerative endplate changes at the C6-C7 level. 5. 0.8 cm x 1.9 cm cystic appearing mass within the left lobe of the thyroid gland is indeterminate on this examination. If clinically indicated, consider ultrasound for further evaluation. Daniel Chang PA-C RAD MRI documented in this encounter Visit Diagnoses Diagnosis Herniated disc, cervical (HRC) Displacement of cervical intervertebral disc without myelopathy documented in this encounter Care Teams Flat Surfacer Relationship Specialty Start Date End Date Needs Pcp, Assignment PCP - General 04/24/14 [place] [address] documented as of this encounter
--- OUTSIDE RECORDS SUMMARY | 2022-08-03 21:34 | XMS_ITS | Encounter Summary ---
:1975 Author Organization [facility] Address [address] [place] [address] Care Team Providers Name Role Phone Unassigned, Provider Primary Care Provider Unavailable Reason for Visit Reason Comments HEADACHE,MIGRAINE Started around late morning, now in nose, eyes are twitching, took advil, drank caffeine, dry h eaving, Has only had a few migraines, last one 8 weeks ago.Dx with Lupus recently Encounter Details Date Type Department Care Team Description 07/28/2012 Office Visit Urgent Care Ana Lilia Migraine headache (Primary [address] Dx) [place] [address] Social History Tobacco Use Types Packs/Day Years Used Date Smoking Tobacco: Never Smokeless Tobacco: Never Alcohol Use Standard Drinks/Week Comments No 0 (1 standard drink = 0.6 oz pure alcoho l) Sex Assigned at Date Recorded Not on file documented as of this encounter Last Filed Vital Signs Vital Sign Reading Time Taken Comments Blood Pressure 116/81 07/28/2012 5:39 PM CDT Pulse 74 07/28/2012 5:39 PM CDT Temperature 36.7 ??C (98.1 ??F) 07/28/2012 5:39 PM CDT Respiratory Rate 24 07/28/2012 5:39 PM CDT Oxygen Saturation - - Inhaled Oxygen Concentration - - Weight - - Height 180.3 cm (5' 11) 07/28/2012 5:39 PM CDT Body Mass Index - - documented in this encounter Patient Instructions Patient InstructionsIvette Hatfield APRN, TRIAL LAWYER - 07/28/2012 6:11 PM CDT Migraine Migraine is a common neurological condition that occurs in about 20% of the population and in 50% ofwomen. Many people think of migraine as just headache, but transient changes in vision are also common, even without any headache. People may see shimmering jagged lines, unusual colors, and a blind spot. It usually lasts 15-30 minutes, then the visual returns to normal. This is called a migraine aura. Theremay or may not be an associated headache. It is not clear how a migraine works, but it is believed that the basic cause is an abnormality of serotonin, which is a chemical used by the brain cells. During a migraine, changes in serotonin levelscause the blood vessels in the brain to constrict. Certain foods like aged cheese, chocolate, red wine, nitrates (often found in cured meats, hot dogs and other processed foods), and monosodium glutamate (a flavor enhancer frequently found in Armenian food). Caffeine, NutraSweet, and alcohol may also produce problems in susceptible individuals. Hormonal changes during , menopause, and menstrual periods also are associated with migraines. People with migraines often have a family history of headaches or prior histories of motion sickness. Other symptoms of migraines can include headache, nausea, sensitivity to light or sound, pounding pain, and some visual symptoms. Treatments first seek to avoid any known factors that precipitate a migraine attack, including environmental factors, medications, and food. Medications for migraines may be prescribed. If migraines are severe, medication on a regular basis may be necessary. If your migraines become increasingly common or if an episode does not resolve, contact your provider. There may be more tests or treatments that are appropriate. Thank you for choosing [facility] for your urgent medical needs.. If your condition significantly worsens, please call your provider or the emergency room right away. Contact the [facility] CareLine with any questions at: [phone] or TTY: [phone]. [facility] Emergency Room [address] [place] [address] For follow-up care please follow up with your primary care clinic/provider. If you would like to be seen in a [facility] clinic, please call the Appointment Center: [phone] (7:00 AM and 9:00 PM) Hearing Impaired: Any x-rays or lab tests completed today have been reviewed by your urgent care provider. We will attempt to contact you if any important changes are found after further review by our staff. Some test results take several days to complete and will be sent to your primary clinic/provider for review. Please contact your primary care provider for these results. We generally do NOT communicate normal or negative results. Any medications prescribed today were automatically compared to your current list of medications to look for potential conflicts or problems. Your pharmacy can provide you with detailed information on any side effects and interactions. If you have additional questions or develop unexpected reactions you can contact your primary clinic, pharmacist or the CareLine. documented in this encounter Progress Notes Ivette Hatfield APRN, CNP - 07/28/2012 5:50 PM CDT I Have a migraine Patient has tried caffeine and Advil earlier today with no relief. Has not skipped a meal or had less then normal fluid. Is have some nausea with retching emesis in the last hour. My left side of brain feels zappy. Patient was diagnosed with lupus last week. Review of Systems HENT: Negative for hearing loss, ear pain, nosebleeds, congestion, tinnitus and ear discharge. Eyes: Positive for photophobia and pain. Negative for blurred vision, double vision, discharge and redness. Gastrointestinal: Positive for nausea and vomiting. Neurological: Negative for dizziness, tremors, focal weakness, seizures and loss of consciousness. Psychiatric/Behavioral: Negative for depression. Patient states she is under a enormous amount of stress. Physical Exam Constitutional: She is oriented to person, place, and time. Well, developed, well nourished female sitting in stationary chair with lights dimmed and sunglasses on. HENT: Head: Normocephalic and atraumatic. Right Ear: External ear normal. Left Ear: External ear normal. Nose: Nose normal. Mouth/Throat: Oropharynx is clear and moist. Eyes: Conjunctivae are normal. Pupils are equal, round, and reactive to light. Right eye exhibits nodischarge. Left eye exhibits no discharge. Neck: Normal range of motion. Neck supple. Abdominal: Soft. Bowel sounds are normal. Neurological: She is alert and oriented to person, place, and time. No cranial nerve deficit. Gait normal. Coordination normal. Skin: Skin is warm and dry. Psychiatric: Mood, memory, affect and judgment normal. A/P: 1. Migraine headache KETOROLAC TROMETHAMINE INJ See patient instructions documented in this encounter Nursing Notes 07/28/2012 5:40 PM CDT >> Bridget Aparicio CMA TueJul 28, 2012 5:43 PM Bridget Aparicio CMA 07/28/2012, 5:38 PM documented in this encounter Plan of Treatment Not on filedocumented as of this encounter Visit Diagnoses Diagnosis Migraine headache - Primary Migraine, unspecified, without mention o f intractable migraine without mention of status migrainosus documented in this encounter Care Teams Women'S Swim Coach Relationship Specialty Start Date End Date Unassigned, Provider PCP - General 02/08/03 04/23/[address] [place] [address] documented as of this encounter
--- OUTSIDE RECORDS SUMMARY | 2022-08-03 21:34 | XMS_ITS | Encounter Summary ---
:1975 Author Organization formerly [facility] Address [address], [place] [address] Care Team Providers Name Role Phone Needs Pcp, Assignment Primary Care Provider Reason for Visit Reason Comments Surgery Orders Encounter Details Date Type Department Care Team Description 12/15/2015 Orders Only [facility] Luis Fernando Zapata MD [address] [place] [address] ERIN [place]valles [address] [place] [address] [phone] (Wo rk) Social History Tobacco Use Types [...] on filedocumented in this encounter Care Teams Change Release Manager Relationship Specialty Start Date End Date Needs Pcp, Assignment PCP - General 04/24/14 [place] [address] documented as of this encounter
--- OUTSIDE RECORDS SUMMARY | 2022-08-03 21:34 | XMS_ITS | Encounter Summary ---
:1975 Author Organization [facility] Address [address] [place] [address] Care Team Providers Name Role Phone Needs Pcp, Assignment Primary Care Provider Encounter Details Date Type Department Care Team Description 05/21/2001 Orders Only Hamlet Wilson MD [address] [place], [place] [phone] [place] [address] (Wo rk) Social History Tobacco Use Types Packs/Day Years Used Date Smoking Tobacco: Never Assessed Sex Assigned at Date Recorded Not on file documented as of this encounter Plan of Treatment Not on filedocumented as of this encounter Procedures Procedure Name Priority Date/Time Associated Diagnosis Comme nts HCG,QUALITATIVE, Waiting 05/21/2001 5:26 PM Resul ts for this SERUM CDT procedure ar e in the results section. documented in this encounter Results HCG, QUAL., SERUM (05/21/2001 5:26 PM CDT) [facility] Method Time Signature HCG, Serum Negative REGIONS Qual Less than 10 mIU Specimen Anatomical Collection Method Collection Time Receive d Time (Source) Location / / Volume Laterality 05/21/2001 5:26 PM 1 5:42 CDT PM CDT Hamlet Rushing MD LAB_1 Performing Organization Address City/State/ZIP Code Phon e Number [address] [id number] [place], [place] [phone] documented in this encounter Visit Diagnoses Not on filedocumented in this encounter Care Teams Optical Instrument Assembler Relationship Specialty Start Date End Date Needs Pcp, Assignment PCP - General 04/24/14 [place], [place] [id number] documented as of this encounter
--- OUTSIDE RECORDS SUMMARY | 2022-08-03 21:34 | XMS_ITS | Encounter Summary ---
:1975 Author Organization [facility] Address [address] [address] Care Team Providers Name Role Phone Needs Pcp, Assignment Primary Care Provider Reason for Visit Reason Comments RESULTS, TEST Encounter Details Date Type Department Care Team Description 08/21/2015 Telephone [facility] Daniel Trivedi PA-C RESULTS, TEST [address] [place] [address] [place] [address] [phone] (Wo rk) Social History Tobacco Use Types Packs/Day Years Used Date Smoking Tobacco: Never Smokeless Tobacco: Never Alcohol Use Standard Drinks/Week Comments No 0 (1 standard drink = 0.6 oz pure alcoho l) Sex Assigned at Date Recorded Not on file documented as of this encounter Nursing Notes Yaritza Ro - 08/22/2015 2:55 PM CDT Patient was unable to make her appointment today because she had to get her daughter from school. Isrequesting a call back to go over MRI results. Yana Magana - 08/21/2015 12:35 PM CDT Patient was hoping she could get her MRI results via phone instead of coming to appointment on 08/22? documented in this encounter Plan of Treatment Not on filedocumented as of this encounter Visit Diagnoses Not on filedocumented in this encounter Care Teams Orthotic/Prosthetic Practitioner Relationship Specialty Start Date End Date Needs Pcp, Assignment PCP - General 04/24/14 [place] [address] documented as of this encounter
--- OUTSIDE RECORDS SUMMARY | 2022-08-03 21:34 | XMS_ITS | Encounter Summary ---
:1975 Author Organization [facility] Address [address], [place] [address] Care Team Providers Name Role Phone Needs Pcp, Assignment Primary Care Provider Reason for Visit Reason Comments SHOULDER PAIN Encounter Details Date Type Department Care Team Description 08/29/2015 Office Visit [facility] Daniel Chang, Cervical radiculopathy [facility] (Primary Dx) [address] [place] [address] [place] [address] [place], [place] [phone] [address] Social History Tobacco Use Types Packs/Day Years Used Date Smoking Tobacco: Never Smokeless Tobacco: Never Alcohol Use Standard Drinks/Week Comments No 0 (1 standard drink = 0.6 oz pure alcoho l) Sex Assigned at Date Recorded Not on file documented as of this encounter Progress Notes Daniel Chang PA-C - 08/29/2015 4:58 PM CDT [facility] Follow-Up 08/29/2015 Chief Complaint: Follow up left shoulder MRI History of Present Illness: Vivek Echeverria is a left-hand dominant 40 y.o. female who presents for follow- up of left shoulder MRI results. The patient has had a neck injection on 05/08/2015 and a left subacromial injection on 07/10/2015. However, she reports that she did not have much improvement following either of these injections. She continues experiencing pain in her left shoulder, as well as neck pain with radiation down her left arm. Her pain is worse with use of the left upper extremity and improved with rest. 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 She has been using Icy Hot with mild improvement of her pain. The patient denies any other associated symptoms at this time. Please refer to my note dated 07/10/2015 for past medical history. Review of Systems: Positive for left shoulder and neck pain. No history of other heart, lung, liver, GI, or renal diseases, cancers, diabetes mellitus, or arthritis. Physical Exam: General: The patient is in no acute distress. Neuro: Answers questions appropriately. Alert and oriented x 3. Skin: Skin is cool to touch without erythema, ecchymosis, or lesions. Left Shoulder: Spurling's test is positive. Tenderness to palpation Full range of motion of her shoulder. Rotator cuff intact. Biceps non-tender.. Full range of motion of cervical spine, elbow, wrist, and hand. Neurovascularly intact distally. Good capillary refill. 2+ radial pulse. This is compared bilaterally. Imaging: MR left shoulder without contrast on : 1. Mild arthropathy in the AC joint. 2. No evidence of significant rotator cuff tendinopathy. No discrete labral tears. Report per radiology. I ordered and independently reviewed the imaging study above; the results were discussed with the patient. Assessment: Diagnosis ICD-10-CM ICD-9-CM 1. Cervical radiculopathy, left M54.12 723.4 Plan: Educated the patient regarding the condition and management. After a discussion, recommended physical therapy for cervical radiculopathy and a follow up appointment with Dr. Johnathan Perez for consultation regarding her pain. I believe her symptoms to be derived from her neck. The patient is comfortableand agreeable with this plan. All questions were answered. Scribe Disclosure: Jennifer Oreilly, am serving as a scribe to document services personally performed by Daniel Chang PA-C at this visit, based upon the providers statements to me. All documentation has been reviewed by the aforementioned doctor prior to being entered into the official medical record. Entered on 08/29/2015 at 2:37 PM. Daniel Oreilly PA-C, attest that the above named individual is acting in scribe capacity, has observed my performance of the services performed at this visit and has documented them in accordance with my direction. Entered on 08/29/2015 at 2:37 PM. Daniel Chang PA-C documented in this encounter Plan of Treatment Not on filedocumented as of this encounter Visit Diagnoses Diagnosis Cervical radiculopathy - Primary Brachial neuritis or radiculitis nos documented in this encounter Care Teams Laborer Petroleum Refinery Relationship Specialty Start Date End Date Needs Pcp, Assignment PCP - General 04/24/14 [place] [address] documented as of this encounter
--- OUTSIDE RECORDS SUMMARY | 2022-08-03 21:34 | XMS_ITS | Encounter Summary ---
:1975 Author Organization [facility] Address [address] [place] [address] Care Team Providers Name Role Phone Unassigned, Provider Primary Care Provider Unavailable Encounter Details Date Type Department Care Team Description 10/31/1989 PN Conversion Only [facility] [address] [place] [address] Social History Tobacco Use Types Packs/Day Years Used Date Smoking Tobacco: Never Assessed Sex Assigned at Date Recorded Not on file documented as of this encounter Plan of Treatment Not on filedocumented as of this encounter Visit Diagnoses Not on filedocumented in this encounter Care Teams Apprentice Embalmer Relationship Specialty Start Date End Date Unassigned, Provider PCP - General 02/08/03 04/23/[address] [place] [address] documented as of this encounter
--- OUTSIDE RECORDS SUMMARY | 2022-08-03 21:34 | XMS_ITS | Encounter Summary ---
:1975 Author Organization [facility] Address [address], [place] [address] Care Team Providers Name Role Phone Needs Pcp, Assignment Primary Care Provider Reason for Visit Reason Comments ERRONEOUS ENTRY Encounter Details Date Type Department Care Team Description 07/08/2015 Office Visit [facility], [facility] (Primary Dx) [address] [place] [address] [place], [place] [phone] (Wo rk) Social History Tobacco Use Types Packs/Day Years Used Date Smoking Tobacco: Never Smokeless Tobacco: Never Alcohol Use Standard Drinks/Week Comments No 0 (1 standard drink = 0.6 oz pure alcoho l) Sex Assigned at Date Recorded Not on file documented as of this encounter Progress Notes Daniel Chang PA-C - 07/11/2015 8:33 AM CDT Daniel Chang PA-C - 07/11/2015 8:33 AM CDT This encounter was created in error - please disregard. documented in this encounter Plan of Treatment Not on filedocumented as of this encounter Visit Diagnoses Diagnosis ERRONEOUS ENTRY - Primary documented in this encounter Care Teams Etl Bi Developer Relationship Specialty Start Date End Date Needs Pcp, Assignment PCP - General 04/24/14 [place] [address] documented as of this encounter
--- OUTSIDE RECORDS SUMMARY | 2022-08-03 21:34 | XMS_ITS | Encounter Summary ---
:1975 Author Organization [facility] Address [address] [place] [address] Care Team Providers Name Role Phone Needs Pcp, Assignment Primary Care Provider Reason for Visit Reason Comments Refill Encounter Details Date Type Department Care Team Description 05/15/2015 Refill [facility] Daniel Trivedi PA-C Refill [address] [place] [address] [place] [address] [phone] (Wo rk) Social History Tobacco Use Types Packs/Day Years Used Date Smoking Tobacco: Never Smokeless Tobacco: Never Alcohol Use Standard Drinks/Week Comments No 0 (1 standard drink = 0.6 oz pure alcoho l) Sex Assigned at Date Recorded Not on file documented as of this encounter Nursing Notes Zoila Jennings RN - 05/16/2015 9:06 AM CDT Refill approved per provider and called into pharmacy; Pt notified of refill approval. Zoila Jennings RN - 05/15/2015 3:27 PM CDT Pt called from [facility] to request refill of Tylenol w/Codiene. Pt had presented for MRI cervical but was unable to have done the imaging and steroid injection related to recent steroid injection into neck. Pt was not able to reschedule until 05/22/15 and would like refill for her neck pain; she stated she has 10# tabs left. Please approve or advise. documented in this encounter Plan of Treatment Not on filedocumented as of this encounter Visit Diagnoses Not on filedocumented in this encounter Care Teams Night Time Nanny Relationship Specialty Start Date End Date Needs Pcp, Assignment PCP - General 04/24/14 [place] [address] documented as of this encounter
--- OUTSIDE RECORDS SUMMARY | 2022-08-03 21:34 | XMS_ITS | Encounter Summary ---
:1975 Author Organization [employer] [facility] Address [address] [place] [address] Care Team Providers Name Role Phone Needs Pcp, Assignment Primary Care Provider Encounter Details Date Type Department Care Team Description 05/02/2014 Imaging [facility] Finger pain, left [address] [place], [place] [address] Social History Tobacco Use [...] Priority Date/Time Associated Diagnosis Comme nts XR FINGER LT LITTLE Routine 05/02/2014 10:09 AM Finger pain, l eft Results for this 2+ VIEWS CDT procedure are i n the results section. documented in this encounter Results XR Finger Lt Little (05/02/2014 10:09 AM CDT) Anatomical Region Laterality Modality Upper Extremity, Hand Other Specimen (Source) Anatomical Location Collection Method / Collectio n Time Received Time / Laterality Volume Narrative 05/07/2014 9:36 AM CDT Three views of the left small finger. INDICATIONS: Puncture wound with glass. FINDINGS: No foreign bodies are seen. Th ere is no evidence of acute or subacute trauma. No degenerative changes noted. Procedure Note Luis Fernando Garcia MD - 04/18/2016Forma tting of this note might be different from the original. Three views of the left small finger. INDICATIONS: Puncture wound with glass. FINDINGS: No foreign bodies are seen. Th ere is no evidence of acute or subacute trauma. No degenerative changes noted. Luis Fernando Garcia MD RAD GD documented in this encounter Visit Diagnoses Diagnosis Finger pain, left Pain in limb documented in this encounter Care Teams Capsule Inspector Relationship Specialty Start Date End Date Needs Pcp, Assignment PCP - General 04/24/14 [place] [address] documented as of this encounter
--- OUTSIDE RECORDS SUMMARY | 2022-08-03 21:34 | XMS_ITS | Encounter Summary ---
:1975 Author Organization [email or web address] Address [address], [place] [address] Care Team Providers Name Role Phone Needs Pcp, Assignment Primary Care Provider Encounter Details Date Type Department Care Team Description 08/21/2015 Imaging [facility] MRI Shoulder pain, left [address] [place], [place] [address] Social History Tobacco Use Types [...] Priority Date/Time Associated Diagnosis Comme nts MR SHOULDER LT WO Routine 08/21/2015 12:29 PM Shoulder pain, l eft Results for this IV CONT CDT procedure are i n the results section. documented in this encounter Results MR Shoulder Lt WO IV Cont (08/21/2015 12:29 PM CDT) Anatomical Region Laterality Modality Shoulder, Skeletal, Arm, Upper Extremity, Other Left Other Specimen (Source) Anatomical Location Collection Method / Collectio n Time Received Time / Laterality Volume Impressions 08/21/2015 12:54 PM CDT IMPRESSION: ?? 1. Mild arthropathy in the AC joint. 2. No evidence of significant rotator cu ff tendinopathy. No discrete labral tears. Narrative 08/21/2015 12:54 PM CDT TECHNIQUE: ??Routine MRI of the left shoulder was performed without contrast. COMPARISON: ??None. FINDINGS: ?? CORACOACROMIAL ARCH/AC JOINT: ??Mild art hropathy in the a.c. joint with mild undersurface osteophytes. Type 2 acromion. There is no significant thickening of the coracoacromial or coracohumeral ligaments. There is no significant narrowing of the subacromial outlet or coracohumeral dist ance. ROTATOR CUFF: ??The supraspinatus, infra spinatus, teres minor and subscapularis tendons are intact without evidence of tear or tendinopathy. There is no atrophy of the rotator cuff muscles. SUBACROMIAL/SUBDELTOID BURSA: ??Normal. GLENOHUMERAL JOINT: ??There is no signif icant degenerative arthritis or focal cartilage defect. There is no significant joint effusion. No osteocartilaginous bodies are identified. LONG HEAD OF THE BICEPS TENDON/GLENOID L ABRUM: ??The intra and extraarticular portions of the long head of the biceps tendon are normal. The biceps-labral anchor is intact. There is no evidence of labral tear. MARROW AND SOFT TISSUES: ??There is no a bnormal signal. There is no soft tissue mass. Procedure Note Tone Lyons MD - 04/18/2016For matting of this note might be different from the original. TECHNIQUE: Routine MRI of the left shoul raleigh was performed without contrast. COMPARISON: None. FINDINGS: CORACOACROMIAL ARCH/AC JOINT: Mild arthr opathy in the a.c. joint with mild undersurface osteophytes. Type 2 acromion. There is no significant thickening of the coracoacromial or coracohumeral ligaments. There is no significant narrowing of the subacromial outlet or coracohumeral dist ance. ROTATOR CUFF: The supraspinatus, infrasp inatus, teres minor and subscapularis tendons are intact without evidence of tear or tendinopathy. There is no atrophy of the rotator cuff muscles. SUBACROMIAL/SUBDELTOID BURSA: Normal. GLENOHUMERAL JOINT: There is no signific ant degenerative arthritis or focal cartilage defect. There is no significant joint effusion. No osteocartilaginous bodies are identified. LONG HEAD OF THE BICEPS TENDON/GLENOID L ABRUM: The intra and extraarticular portions of the long head of the biceps tendon are normal. The biceps-labral anchor is intact. There is no evidence of labral tear. MARROW AND SOFT TISSUES: There is no abn ormal signal. There is no soft tissue mass. IMPRESSION IMPRESSION: 1. Mild arthropathy in the AC joint. 2. No evidence of significant rotator cu ff tendinopathy. No discrete labral tears. Daniel Chang PA-C RAD MRI documented in this encounter Visit Diagnoses Diagnosis Shoulder pain, left Pain in joint, shoulder region documented in this encounter Care Teams Smt Machine Operator Relationship Specialty Start Date End Date Needs Pcp, Assignment PCP - General 04/24/14 [place] [address] documented as of this encounter
[2022-08-03 21:37] LABS: Hematocrit 31.3 % (33.0-51.0); Hemoglobin* 9.8 gm/dL (12.0-16.0); Red Blood Count 4.24 m/uL (4.00-5.20)
[2022-08-03 21:38] LABS: Basophils Percent Auto 0.4 % (0.0-3.0); Eosinophils Percent Auto 2.1 % (0.0-7.0); Immature Granulocytes Pct Auto 0.7 %; Lymphocytes Percent Auto 23.7 % (20-44); Mean Corpuscular HGB Conc 31 gm/dL (32-36); Mean Corpuscular Hemoglobin 23 pg (26-34); Mean Corpuscular Volume 74 fL (80-100); Monocytes Percent Auto 10.9 % (0.0-11.0); Neutrophils Percent Auto 62.2 % (42.0-72.0); Platelet Count* 278 K/uL (140-440); RDW Coefficient of Variation % 13.9 % (11.5-15.5); Slide Review Reflex No
[2022-08-03 21:51] LABS: D Dimer Quantitative* 0.33 ug/ml (0.00-0.50)
[2022-08-03 21:52] LABS: Albumin* 4.3 g/dL (3.3-5.0); Chloride* 104 mmol/L (96-114); Sodium* 136 mmol/L (135-149)
[2022-08-03 21:53] LABS: Potassium* 3.5 mmol/L (3.6-5.1)
[2022-08-03 21:54] VITALS: O2SAT 98
[2022-08-03 21:54] LABS: Creatinine* 0.6 mg/dL (0.5-1.5); Est. Creatinine Clearance* 126.77; Estimated Glomerular Filt Rate 110 ml/min
[2022-08-03 21:55] VITALS: PULSE 74; O2SAT 98
[2022-08-03 21:55] LABS: Alanine Aminotransferase* 17 U/L (4-35); Alkaline Phosphatase* 64 U/L (40-150); Aspartate Amino Transferase* 22 U/L (12-35); Bilirubin Direct* 0.2 mg/dL (0.0-0.5); Bilirubin Total* 0.3 mg/dL (0.1-1.5); Blood Urea Nitrogen* 14 mg/dL (5-24); Carbon Dioxide* 26 mmol/L (20-32); Total Protein* 6.9 g/dL (6.0-8.3)
[2022-08-03 21:56] LABS: Calcium* 9.4 mg/dL (8.4-10.6); Glucose* 118 mg/dL (60-115)
[2022-08-03 22:13] LABS: C Reactive Protein* < 0.5 mg/dL (0.5-1.0); Troponin I* < 0.01 ng/mL (0.01-0.04)
[2022-08-03 22:24] LABS: PCR FLU A Negative PCR FLU A (Negative); PCR FLU B Negative PCR FLU B (Negative)
[2022-08-03 22:40] VITALS: BP 132/88; PULSE 77; O2SAT 100
[2022-08-03 22:43] LABS: Erythrocyte SedimentationRate* 14 mm/hr (2-20)
[2022-08-03 22:44] LABS: SARS PCR* Negative SARS-CoV-2 (Negative)
[2022-08-03 23:16] VITALS: BP 129/81; PULSE 75; RESP 18; O2SAT 100
== END 2022-08-03 23:34 | disposition home or self-care (01) ==
PROVIDERS: Emergency Provider Family Medicine; PCP Internal Medicine
DX: R00.2 Palpitations (principal); D64.9 Anemia, unspecified
CPT/HCPCS: 36415; 71046; 80048; 80076; 83605; 84443; 84484; 85025; 85379; 85651; 86140; 87631; 93005; 93225; 93226; 94761; 99284

== ENCOUNTER 2022-09-15 10:19 | Outpatient (CLI) | payer BC, SELFPAY ==
--- NOTE | 2022-09-15 10:15 | CRLHL7_ITS ---
For Patients: As a result of the Century Cures Act, medical imaging exams and procedure reports are released immediately into your electronic medical record. You may view this report before your referring provider. If you have questions, please contact your health care provider. BILATERAL SCREENING MAMMOGRAM WITH COMPUTER-AIDED DETECTION AND TOMOSYNTHESIS TECHNIQUE: CC, MLO and Implant displaced views were obtained. These mammographic images have been obtained using full-field digital technique. These mammographic images were interpreted with the benefit of computer-aided detection. Breast Tomosynthesis was used in this interpretation. COMPARISON FILM: No prior available. Baseline. FINDINGS: The breasts are heterogeneously dense, which may obscure small masses IMPRESSION: There is no radiographic evidence for malignancy. ASSESSMENT: BI-RADS Category 2: Benign RECOMMENDATION: Routine screening mammogram in 1 year. A lay language report of this examination will be provided to the patient. Robert Cartagena M.D. Diagnostic Radiologist [email or web address] JUANITA/sultana Transcribed: 7:25 p.m. GRACE/Dictated by: Robert Cartagena MD @ 09/15/2022 12:01:00 PM (Electronically Signed)
--- OUTSIDE RECORDS SUMMARY | 2022-09-15 10:22 | XMS_ITS | Clinical Summary ---
:1975 Author Organization [facility] Address [address] [place] [address] Care Team Providers Name Role Phone Unavailable Primary Care Provider Unavailable Source Comments Patient records contain information from all sites at [facility]. For routine questions regarding patient records, call [phone] during business hours, M-F 8:00 AM - 5:00 PM Central Time. Record requests for emergency care only can be directed to [phone] at any time.[facility] Allergies Active Allergy Reactions Severity Noted Date Comments Pollen Extracts Other (see comments) 03/10/2021 Snee zing, watery eyes Medications Medication Sig Dispensed Refills Start Date End Date Status LORazepam (ATIVAN) 0.5 as needed. 0 04/24/2015 Active mg tablet thyroid, pork, (ARMOUR) Take 90 mg by 0 02/04/2021 Active 90 mg tablet mouth daily. tretinoin (RETIN-A) as needed. 0 01/18/2021 Active 0.025 % cream triamcinolone (KENALOG) Apply topically 0 11/12/2020 Active 0.1 % cream as needed. galcanezumab-gnlm Inject 1 mL (120 1 pen 11 03/23/2021 Active (EMGALITY) 120 mg/mL mg total) under injection the skin every 30 (thirty) days. rizatriptan POLICE SPECIALIST Take 1 tablet (10 18 tablet 6 03/23/2021 Active (MAXALT-POLICE SPECIALIST) 10 mg mg total) by disintegrating tablet mouth as needed for migraine. May repeat dose once in 2 hours if migraine unresolved. Do not exceed 30 mg in 24 hours. cyanocobalamin (VITAMIN Take by mouth as 0 8 Active B12) 500 mcg tablet needed. Adderall XR 20 mg 24 hr Take by mouth as 0 07/12/202 2 Active capsule needed. diazePAM (VALIUM) 2 mg Take by mouth as 0 04/01/2008 Active tablet needed. PROGESTERONE MICRONIZED Take 1 capsule by 0 Active ORAL mouth daily. galcanezumab-gn Inject 1 mL (120 1 mL 11 06/21/2022 Active (EMGALITY) 120 mg/mL mg total) under injection the skin every 30 (thirty) days. rimegepant (NURTEC ODT) Dissolve 1 tablet 16 tablet 06/24/20 Active 75 mg disintegrating (75 mg total) in tablet the mouth as needed for migraine. The [...] not exceed 200 mg in 24 hours. Active Problems Problem Noted Date Neuralgia Occipital [...] Only Pharmacy Jose Burnham 06/24/2022 Telemedicine Neurology Tracy Lee Headac he Chronic (Primary Dx); Ramon Weber Migraine Hea dache Without Aura 06/21/2022 Clinical Admitting/Central Pre-visit Intake Communication Scheduling from Last 3 Months Immunizations Name Administration [...] drinks on one occasion? No t asked Social Isolation Answer Date Recorded In a typical week, how many times do you More than three sarah es a week 06/22/2022 talk on the phone with family, friends, or neighbors? How often do you get together with friends Once a week 06/22/2022 or relatives? How often do you attend jainism or Patient refused 2021 quaker services? Do [...] or slept in a usp (including now)? Education Answer Date Recorded What [...] this topic Medical Devices Implanted Type Area Digital Marketer Device Shelf Model / Identifier Expiration Serial / Date Lot Breast Implant-10/31/2016 Breast Bilateral: Implanted: 10/31/2016 (Quantity not on file) Implant Breast Hardware E.G. Hardware Uterus Pins/Screws/R e.g. ods pins/screws/ rods Description: Essure parts left imbedded: no longer uses as birthcontrol Insurance Payer Benefit Plan Subscriber ID Effective Phone Address Typ e / Group Dates BLUE CROSS BCBS BLUE [id number] 2020-Prese ATTN: Jordy cobb HMO BLUE SHIELD PLUS HMO nt CONSUMER [facility] [place] [address] [address] [place] [address]
--- OUTSIDE RECORDS SUMMARY | 2022-09-15 10:22 | XMS_ITS | Encounter Summary ---
:1975 Author Organization [facility] Address [address] [place] [address] Care Team Providers Name Role Phone Unavailable Primary Care Provider Unavailable Encounter Details Date Type Department Care Team Description 07/02/2022 Orders Only Pharmacy Prior Auth RO Negar aMn [phone] Social History Tobacco Use Types Packs/Day Years [...] you attend anabaptist or Patient refused 2021 oriental orthodox services? Do you belong to any [...] or slept in a snf (including now)? Education Answer Date Recorded What is the highest level of school Associate degree: danay navarro, 03/12/2021 you have completed or the highest [...]
--- OUTSIDE RECORDS SUMMARY | 2022-09-15 10:22 | XMS_ITS | Encounter Summary ---
:1975 Author Organization [facility] Address [address] [place] [address] Care Team Providers Name Role Phone Unavailable Primary Care Provider Unavailable Encounter Details Date Type Department Care Team Description 06/30/2022 Orders Only Pharmacy Prior Auth Enrique Holt [phone] Social History Tobacco Use Types Packs/Day Years [...] or relatives? How often do you attend pentecostal or Patient refused 2021 roman catholic services? Do you belong to any clubs or Yes 06/22/2022 organizations such as pentecostal groups, unions, fraternal or athletic groups, or [...] or slept in a detention (including now)? Education Answer Date Recorded What [...]
--- OUTSIDE RECORDS SUMMARY | 2022-09-15 10:22 | XMS_ITS | Encounter Summary ---
:1975 Author Organization [facility] Address [address] [place] [address] Care Team Providers Name Role Phone Unavailable Primary Care Provider Unavailable Encounter Details Date Type Department Care Team Description 07/28/2022 Orders Only Department of Neurology in Jesus SathishEleazar [place], [place] Ramon [address] [facility] [address] [place] [address] [place], [place] [phone] (Wo rk) Social History Tobacco Use Types [...] or relatives? How often do you attend restorationism or Patient refused 2021 protestant services? Do you belong to any clubs or Yes 06/22/2022 organizations such as restorationism groups, unions, fraternal or athletic groups, or [...] or slept in a halfway (including now)? Education Answer Date Recorded What [...]
--- OUTSIDE RECORDS SUMMARY | 2022-09-15 10:22 | XMS_ITS | Encounter Summary ---
:1975 Author Organization [facility] Address [address] [place] [address] Care Team Providers Name Role Phone Unavailable Primary Care Provider Unavailable Encounter Details Date Type Department Care Team Description 07/14/2022 Orders Only Pharmacy Prior Auth RO Regina Somers [phone] Social History Tobacco Use Types Packs/Day Years [...] or relatives? How often do you attend rastafarian or Patient refused 2021 yarsani services? Do you belong to any clubs or Yes 06/22/2022 organizations such as rastafarian groups, unions, fraternal or athletic groups, or [...] or slept in a penitentiary (including now)? Education Answer Date Recorded What [...]
--- OUTSIDE RECORDS SUMMARY | 2022-09-15 10:23 | XMS_ITS | Encounter Summary ---
:1975 Author Organization [facility] Address [address] [place] [address] Care Team Providers Name Role Phone Unavailable Primary Care Provider Unavailable Reason for Visit Reason Comments Pre-visit Intake Encounter Details Date Type Department Care Team Description 06/21/2022 Clinical Communication Visit Review in Pr e-visit Intake [place], [place] [address] [place] [address] Social History Tobacco Use Types Packs/Day Years [...] you attend samaritan or Patient refused 2021 sikh services? Do [...]
--- OUTSIDE RECORDS SUMMARY | 2022-09-15 10:23 | XMS_ITS | Encounter Summary ---
:1975 Author Organization [facility] Address [address] [place] [address] Care Team Providers Name Role Phone Unavailable Primary Care Provider Unavailable Reason for Referral Outpatient (Routine) - Authorized Specialty Diagnoses / Procedures Referred By Contact Refer red To Contact Neurology Gus Lee M .D. [address] [phone] Referral ID Status Reason Start Date Expiration Date Visits V isits Requested Authorized [id number] Authorized 06/24/2022 06/23/2025 1 1 Medication Prior Authorization - Denied Specialty Diagnoses / Procedures Referred By Contact Refer red To Contact Gus Lee M .D. [address] [place] [phone] Referral ID Status Reason Start Date Expiration Date Visits Requ ested Visits Authorized [id number] Denied 1 1 Reason for Visit Outpatient (Routine) - Closed Specialty Diagnoses / Procedures Referred By Contact Refer red To Contact Neurology Gus Lee M .D. [address] [phone] Referral ID Status Reason Start Date Expiration Date Visits Requ ested Visits Authorized [id number] Closed 03/23/2021 03/23/2022 1 1 Encounter Details Date Type Department Care Team Description 06/24/2022 Telemedicine Department of Jesus, Migraine Heada jyoti Chronic (Primary Dx); Neurology in Ramon Weber Migraine Headache Without Aura [place], [place] 200 [facility] 200 [place] [phone] Social History Tobacco Use Types Packs/Day Years [...] you attend nondenominational or Patient refused 2021 confucianist services? Do [...] or slept in a retirement (including now)? Education Answer Date Recorded What [...] audio/video technology by Gus Lee M.D. at [facility] to the patient in patient's home. This Video Visit was performed during the COVID-19 emergency, when many states had issued [id number] orders. CHIEF COMPLAINT / REASON FOR VISIT: [...] months Total visit time 25 minutes including unzw-gx-fufy time, chart reviewed and documentation, with over50% [...] Name Type Priority Associated Diagnoses Order [facility] Neu[facility] office Outpatient Referral Routine Expe cted: visit (clinic) 06/24/2023 (Approximate), Expires: 09/24/2023 documented as of this encounter Visit Diagnoses Diagnosis Migraine Headache Chronic - Primary Migraine Headache Without Aura documented in this encounter Additional Health Concerns Assessment Noted Time PHQ-9 Depression Total Score: 11 03/23/2021 2:58 PM CD T documented as of this encounter
--- OUTSIDE RECORDS SUMMARY | 2022-09-15 10:23 | XMS_ITS | Encounter Summary ---
:1975 Author Organization [facility] Address [address] [place] [address] Care Team Providers Name Role Phone Unavailable Primary Care Provider Unavailable Reason for Visit Reason Comments Pre-visit Intake Encounter Details Date Type Department Care Team Description 03/10/2021 Clinical Communication Department of Quiana, Pre- visit Intake Neurology in Robert Downey M.D. [place], [place] [address] [facility] [address] [place] [phone] Social History Tobacco Use Types Packs/Day Years [...] you attend baptism or Patient refused 2021 amish services? Do you belong to any clubs [...]
--- OUTSIDE RECORDS SUMMARY | 2022-09-15 10:23 | XMS_ITS | Encounter Summary ---
:1975 Author Organization [facility] Address [address] [place] [address] Care Team Providers Name Role Phone Unavailable [...] or relatives? How often do you attend mandaen or Patient refused 2021 religion services? Do you belong to any clubs or Yes 06/22/2022 organizations such as mandaen groups, unions, fraternal or athletic groups, or [...]
--- OUTSIDE RECORDS SUMMARY | 2022-09-15 10:23 | XMS_ITS | Encounter Summary ---
:1975 Author Organization [facility] Address [address] [place] [address] Care Team Providers Name Role Phone Unavailable Primary Care Provider Unavailable Encounter Details Date Type Department Care Team Description 10/19/2021 Orders Only Pharmacy Prior Auth RO Elsewhere, Pcp [phone] Social History Tobacco Use Types Packs/Day Years [...] you attend confucianism or Patient refused 2021 roman catholic services? [...]
--- OUTSIDE RECORDS SUMMARY | 2022-09-15 10:23 | XMS_ITS | Encounter Summary ---
:1975 Author Organization [facility] Address [address] [place] [address] Care Team Providers Name Role Phone Unavailable [...] many times do you More than three sraah es a week 06/22/2022 talk on the phone with family, friends, or neighbors? How often do you get together with friends Once a week 06/22/2022 or relatives? How often do you attend hoahaoism or Patient refused 2021 restorationist services? Do you belong to any clubs or Yes 06/22/2022 organizations such as hoahaoism groups, unions, fraternal or athletic groups, or [...] Kaylah Vaughn - 07/29/2009 12:00 AM CDT [id number] Vivek Garcia [address] [place] [address] July 29, 2009 RE: Medication management Dear [...] remain: Very truly yours, Virginia Pierce, Ph.D., HOME SCHOOL COORDINATOR MattKS:bonnie Source: [facility] [id number] Document Id: [id number] documented in this encounter Plan of Treatment Not on filedocumented as of this encounter Visit Diagnoses Not on filedocumented in this encounter
--- OUTSIDE RECORDS SUMMARY | 2022-09-15 10:23 | XMS_ITS | Encounter Summary ---
:1975 Author Organization [facility] Address [address] [place] [address] Care Team Providers Name Role Phone Unavailable Primary Care Provider Unavailable Reason for Referral Medication Prior Authorization - Authorized Specialty Diagnoses / Procedures Referred By Contact Refer red To Contact Gus Lee M .D. [address] [place] [phone] Referral ID Status Reason Start Date Expiration Date Visits V isits Requested Authorized [id number] Authorized 04/02/2022 07/01/2023 1 1 Encounter Details Date Type Department Care Team Description 06/30/2022 Orders Only Department of Neurology in [place], [place] Ramon [address] [place] [address] [place] [phone] [place], [place] [phone] (Wo rk) Social History Tobacco Use Types [...] you attend voodoo or Patient refused 2021 baptism services? Do [...]
--- OUTSIDE RECORDS SUMMARY | 2022-09-15 10:23 | XMS_ITS | Encounter Summary ---
:1975 Author Organization [facility] Address [address] [place] [address] Care Team Providers Name Role Phone Unavailable Primary Care Provider Unavailable Encounter Details Date Type Department Care Team Description 06/29/2008 Hospital Encounter [facility]X [facility] Provider, Historic al Social History Tobacco [...] you attend sabianism or Patient refused 2021 rastafari services? Do [...]
--- OUTSIDE RECORDS SUMMARY | 2022-09-15 10:23 | XMS_ITS | Encounter Summary ---
:[address] [facility] Address [address] [place] [address] Care Team Providers Name Role Phone Unavailable Primary Care Provider Unavailable Encounter Details Date Type Department Care Team Description 03/12/2021 Ancillary Procedure Department of Batsheva Araya Occipital; Radiology in Robert Downey M.D. Headache Daily; [place], [place] [address] [facility] Migraine Headache Without Aura [address] [place] [phone] Social History Tobacco Use Types Packs/Day Years [...] or relatives? How often do you attend christianity or Patient refused 2021 baptist services? Do you belong to any clubs or Yes 06/22/2022 organizations such as christianity groups, unions, fraternal or athletic groups, or [...] helpful to further characterize. Robert Araya M.D. [facility] MRI PROCEDURES documented in this encounter Visit Diagnoses Diagnosis Neuralgia Occipital Headache Daily Migraine Headache Without Aura Neuralgia Occipital Headache Daily Migraine Headache Without Aura documented in this encounter
--- OUTSIDE RECORDS SUMMARY | 2022-09-15 10:23 | XMS_ITS | Encounter Summary ---
:1975 Author Organization [facility] Address [address] [place] [address] Care Team Providers Name Role Phone Unavailable Primary Care Provider Unavailable Encounter Details Date Type Department Care Team Description 05/27/2008 Hospital Encounter [facility]X [facility] Provider, Historic al Social History [...] you attend congregation or Patient refused 2021 mormon services? Do you belong to any clubs [...]
--- OUTSIDE RECORDS SUMMARY | 2022-09-15 10:23 | XMS_ITS | Encounter Summary ---
:1975 Author Organization [facility] Address [address] [place] [address] Care Team Providers Name Role Phone Unavailable Primary Care Provider Unavailable Encounter Details Date Type Department Care Team Description 03/25/2021 Orders Only [facility] Pharmacy - [facility] er No Contact, Pcp [address] [place] [address] Social History Tobacco Use Types Packs/Day [...] you attend pentecostalism or Patient refused 2021 nondenominational services? Do you belong to any clubs [...]
--- OUTSIDE RECORDS SUMMARY | 2022-09-15 10:23 | XMS_ITS | Encounter Summary ---
:1975 Author Organization [facility] Address [address] [place] [address] Care Team Providers Name Role Phone Unavailable Primary Care Provider Unavailable Reason for Visit Reason Comments Pre-visit Intake Encounter Details Date Type Department Care Team Description 03/10/2021 Clinical Communication Department of Quiana, Pre- visit Intake Neurology in Robert Downey M.D. [place], [place] [address] [facility] [address] [place] [phone] Social History Tobacco Use Types Packs/Day Years [...] you attend mandaen or Patient refused 2021 zoroastrian services? Do you belong to any clubs [...]
--- OUTSIDE RECORDS SUMMARY | 2022-09-15 10:23 | XMS_ITS | Encounter Summary ---
:1975 Author Organization [facility] Address [address] [place] [address] Care Team Providers Name Role Phone Unavailable Primary Care Provider Unavailable Encounter Details Date Type Department Care Team Description 11/03/[address] [facility] Pharm[facility] - Mary Dillon [address] [facility] [place] [address] Social History Tobacco [...] or relatives? How often do you attend temple or Patient refused 2021 sabianist services? Do you belong to any clubs or Yes 06/22/2022 organizations such as temple groups, unions, fraternal or athletic groups, or [...] slept in a long term (including now)? Education Answer Date Recorded What [...]
--- OUTSIDE RECORDS SUMMARY | 2022-09-15 10:23 | XMS_ITS | Encounter Summary ---
:1975 Author Organization [facility] Address [address] [place] [address] Care Team Providers Name Role Phone Unavailable Primary Care Provider Unavailable Reason for Visit Reason Comments Rx Prior Authorization JORGE A DENIED - EMGALITY 120 MG/ ML AUTO-INJECTOR Encounter Details Date Type Department Care Team Description 11/02/2021 Clinical Communication Department of Анна Lee Neurology in [facility], Authorization ( JORGE A Yoon M.D. DENIED - EMGALITY [address] [place] [address] MG/ML AUTO-INJECTOR) [address] [facility] [phone] [place] [phone] Social History Tobacco Use Types Packs/Day Years [...] you attend buddhist or Patient refused 2021 baptist services? Do [...] Notes Telephone Encounter - Anahi Worrell - 11/03/2021 10:09 AM CST I'm working on this PA currently. They sent denial before we got the fax form that they sent to fillout. When I did verbal since I had problems trying to complete electronically - they didn't ask any clinical questions and the rep said they would reach out if they needed more information. Which they did and sent form but didn't get it before they denied it. So I will ask them to re- review - don't doappeal just yet. Thanks! VULCANIZER Telephone Encounter - Itzel Elise, RDorita. - 11/02/2021 1:34 PM TIRE VULCANIZER Per encounter dated 10/19, pt reported 50% reduction in intensity/frequency of headaches, and 12 headache days per month. Zero migraine days. Thoughts? VULCANIZER Telephone Encounter - Kiara Farias I. - 11/02/2021 11:58 AM CST Images from the original note were not included. The patient's health insurer has denied prior authorization for EMGALITY 120 MG/ML AUTO-INJECTOR. A quick view of the denial reason is in this communication message. To view the denial letter: 1. Go to Snapshot 2. Go to the purple Medications box 3. Click on the blue Prior Authorizations link 4. Under Denied, click on the blue medication link to open and view the attachment. As the prescriber your options are: ??? Appeal the decision to the insurer directly (see denial letter for how to appeal). ??? Write a new Rx for an alternative medication therapy. ??? Release the Rx to the pharmacy so [...] Rina KANG. Thank you, The OPPA Team VULCANIZER documented in this encounter Plan of Treatment Not on filedocumented as of this encounter Visit Diagnoses Not on filedocumented in this encounter Additional Health Concerns Assessment Noted Time PHQ-9 Depression Total Score: 11 03/23/2021 2:58 PM CD T documented as of this encounter
--- OUTSIDE RECORDS SUMMARY | 2022-09-15 10:23 | XMS_ITS | Encounter Summary ---
:1975 Author Organization [facility] Address [address] [place] [address] Care Team Providers Name Role Phone Unavailable Primary Care Provider Unavailable Encounter Details Date Type Department Care Team Description 11/03/2021 Orders Only [facility] - [facility] Sánchez, Pcp [address] [place] [address] Social History Tobacco Use Types Packs/Day [...] you attend hoahaoism or Patient refused 2021 gnosticism services? Do [...]
--- OUTSIDE RECORDS SUMMARY | 2022-09-15 10:23 | XMS_ITS | Encounter Summary ---
:1975 Author Organization [facility] Address [address] [place] [address] Care Team Providers Name Role Phone Unavailable [...] you attend methodist or Patient refused 2021 mormonism services? Do you belong to any clubs [...]
--- OUTSIDE RECORDS SUMMARY | 2022-09-15 10:23 | XMS_ITS | Encounter Summary ---
:1975 Author Organization [facility] Address [address] [place] [address] Care Team Providers Name Role Phone Unavailable Primary Care Provider Unavailable Encounter Details Date Type Department Care Team Description 05/13/2022 Orders Only Pharmacy Prior Auth Enrique Holt [phone] Social History Tobacco Use Types Packs/Day Years [...] you attend buddhism or Patient refused 2021 anabaptist services? Do you belong to any clubs [...]
--- OUTSIDE RECORDS SUMMARY | 2022-09-15 10:23 | XMS_ITS | Encounter Summary ---
:1975 Author Organization [facility] Address [address] [place] [address] Care Team Providers Name Role Phone Unavailable Primary Care Provider Unavailable Reason for Visit Reason Comments Appointment Encounter Details Date Type Department Care Team Description 03/04/2021 Clinical Communication Department of Nilay Nation , Appointment Neurologic Surgery in M.D., Ph.D. [place], [place] [address] [place] [address] Social History Tobacco Use Types [...] you attend amish or Patient refused 2021 anabaptism services? Do [...]
--- OUTSIDE RECORDS SUMMARY | 2022-09-15 10:23 | XMS_ITS | Encounter Summary ---
:1975 Author Organization [facility] Address [address] [place] [address] Care Team Providers Name Role Phone Unavailable Primary Care Provider Unavailable Encounter Details Date Type Department Care Team Description 11/02/2021 Orders Only Pharmacy Prior Auth Kiara Friedman I. [phone] Social History Tobacco Use Types Packs/Day Years [...] you attend evangelical or Patient refused 2021 spiritism services? Do [...]
--- OUTSIDE RECORDS SUMMARY | 2022-09-15 10:23 | XMS_ITS | Encounter Summary ---
:1975 Author Organization [facility] Address [address] [place] [address] Care Team Providers Name Role Phone Unavailable Primary Care Provider Unavailable Reason for Referral Outpatient (Routine) - Closed Specialty Diagnoses / Procedures Referred By Contact Refer lake To Contact Neurology Diagnoses Neuralgia Occipital Headache Daily Migraine Headache Without Aura Robert Araya M.D. [facility] [address] [place] [address] Referral ID Status Reason Start Date Expiration Date Visits Requ ested Visits Authorized [id number] Closed 03/12/2021 03/12/2022 1 1 Reason for Visit Appointment Request (Routine) - Closed Specialty Diagnoses / Procedures Referred By Contact Cori bethea To Contact Neurological Surgery Diagnoses Neuralgia Occipital Referral ID Status Reason Start Date Expiration Date Visits Requ ested Visits Authorized [id number] Closed 03/02/2021 03/02/2022 2 1 Encounter Details Date Type Department Care Team Description 03/12/2021 Comprehensive Visit Department of Batsheva Araya Occipital (Primary Dx); Neurology in Robert Downey M.D. Headache Daily; [place], [place] [address] [facility] Migraine Headache Without Aura [address] [place] [phone] Social History Tobacco Use Types Packs/Day Years [...] you attend sabianism or Patient refused 2021 rastafarian services? Do [...] reviewed these images today. Currently she takes [place] 3-5 days a week. She will not [...] with Dr. Welsh . She flew to [place] to see Dr. Stern, who said he [...] Name Type Priority Associated Diagnoses [facility] - [facility]patient Referral Routine Neuralgia Oc [...] helpful to further characterize. Robert Araya M.D. [facility] MRI PROCEDURES Interpretation of Outside MR Head [...]
--- OUTSIDE RECORDS SUMMARY | 2022-09-15 10:23 | XMS_ITS | Encounter Summary ---
:1975 Author Organization [facility] Address [address] [place] [address] Care Team Providers Name Role Phone Unavailable Primary Care Provider Unavailable Reason for Visit Reason Comments Rx Prior Authorization EMGALITY Encounter Details Date Type Department Care Team Description 10/19/2021 Clinical Communication [facility] Ramno Yoon (EMGALITY) [place] [address] [facility] [phone] [place] [phone] [place] [address] Social History Tobacco Use Types Packs/Day Years [...] you attend voodoo or Patient refused 2021 nondenominational services? Do [...] or slept in a fpc (including now)? Education Answer Date Recorded What [...] says they can't find the patient. Thanks! PILOT Telephone Encounter - Anahi Worrell - 10/26/2021 4:55 PM CST Thanks! Working on the PA now. PILOT Telephone Encounter - Anahi Worrell - 10/19/2021 3:54 PM CST I'm working on a PA renewal for Emgality. Can I get an update on how patient is doing on the medication? How many headache/migraine days is she having? Has she had a 50% reduction in frequency/intensity? Any information will be helpful. Thanks! PILOT documented in this encounter Plan of Treatment Not on filedocumented as of this encounter Visit Diagnoses Not on filedocumented in this encounter Additional Health Concerns Assessment Noted Time PHQ-9 Depression Total Score: 11 03/23/2021 2:58 PM CD T documented as of this encounter
--- OUTSIDE RECORDS SUMMARY | 2022-09-15 10:23 | XMS_ITS | Encounter Summary ---
:1975 Author Organization [facility] Address [address] [place] [address] Care Team Providers Name Role Phone Unavailable Primary Care Provider Unavailable Reason for Referral Outpatient (Routine) - Closed Specialty Diagnoses / Procedures Referred By Contact Cori bethea To Contact Neurology Gus Lee M .D. [address] [phone] Referral ID Status Reason Start Date Expiration Date Visits Requ ested Visits Authorized [id number] Closed 03/23/2021 03/23/2022 1 1 Medication Prior Authorization - Authorized Specialty Diagnoses / Procedures Referred By Contact Cori bethea To Contact Gus Lee M .D. [address] [place] [phone] Referral ID Status Reason Start Date Expiration Date Visits V isits Requested Authorized [id number] Authorized 12/25/2020 09/24/2021 1 1 Reason for Visit Outpatient (Routine) - Closed Specialty Diagnoses / Procedures Referred By Contact Cori bethea To Contact Neurology Diagnoses Neuralgia Occipital Headache Daily Migraine Headache Without Aura Robert Araya M.D. [address] [phone] Referral ID Status Reason Start Date Expiration Date Visits Requ ested Visits Authorized [id number] Closed 03/12/2021 03/12/2022 1 1 Encounter Details Date Type Department Care Team Description 03/23/2021 Comprehensive Visit Department of Jesus, Migrain e Headache Chronic (Primary Dx); Neurology in [facility], Neuralgia Occip ital; [place], [place] Ramon Headache Daily; [address] [place] [phone] [phone] Social History Tobacco Use Types Packs/Day Years [...] you attend advent or Patient refused 2021 islam services? Do you belong to any clubs [...] by her partner today. They are from [place], [place]. She started to have typical migraine [...] exertion and loud sounds tends to t mystery shopper her headaches. She rates the severity and [...] every 4-5 months Current Acute Headache Medications: [place] as needed- 12 days per month Marijuana- [...] with Dr. Welsh . She flew to [place] to see Dr. Stern, who said he [...] 9 DAYS PER MONTH ??? thyroid, pork, (HOG TENDER Thyroid) 90 mg tablet Take 90 mg [...] her verbal consent to participate in the [facility] Headache registry. OBJECTIVE PHYSICAL EXAM General Exam: [...] in bilateral upper and lower extremities Coordination: Lfjjkk-bqzi-zbdnjd test: no dysmetria on both sides. Gait: [...] months Total visit time 80 minutes including xuuh-fp-zooi time, chart reviewed and documentation, with over50% spent counseling with the patient and coordination of care activities described above. documented in this encounter Plan of Treatment Scheduled Referrals Name Type Priority Associated Diagnoses Order S [facility] Neurology office Outpatient Referral Routine Expe [...]
--- OUTSIDE RECORDS SUMMARY | 2022-09-15 10:23 | XMS_ITS | Encounter Summary ---
:1975 Author Organization [facility] Address [address] [place] [address] Care Team Providers Name Role Phone Unavailable Primary Care Provider Unavailable Encounter Details Date Type Department Care Team Description 03/12/2021 Ancillary Procedure Department of Batsheva Araya Occipital; Radiology in Robert Downey M.D. Headache Daily; [place], [place] [address] [facility] Migraine Headache Without Aura [address] [place] [phone] Social History Tobacco Use Types Packs/Day Years [...] you attend samaritan or Patient refused 2021 scientology services? Do you belong to any clubs [...] or slept in a long-term (including now)? Education Answer Date Recorded What [...] ultrasound would be helpful to further characterize. oRbert LLANES MRI PROCEDURES Interpretation of Outside MR [...]
--- OUTSIDE RECORDS SUMMARY | 2022-09-15 10:23 | XMS_ITS | Encounter Summary ---
:1975 Author Organization [facility] Address [address] [place] [address] Care Team Providers Name Role Phone Unavailable [...] you attend caodaism or Patient refused 2021 latter-day services? Do [...]
--- OUTSIDE RECORDS SUMMARY | 2022-09-15 10:23 | XMS_ITS | Encounter Summary ---
:1975 Author Organization [facility] Address [address] [place] [address] Care Team Providers Name Role Phone Unavailable Primary Care Provider Unavailable Encounter Details Date Type Department Care Team Description 10/29/2021 Orders Only Pharmacy Prior Auth Anahi Villalta [phone] [address] [place] [address] Social History Tobacco Use Types Packs/Day Years [...] you attend worship or Patient refused 2021 anglican services? Do you belong to any clubs [...]
--- OUTSIDE RECORDS SUMMARY | 2022-09-15 10:23 | XMS_ITS | Encounter Summary ---
:1975 Author Organization [facility] Address [address] [place] [address] Care Team Providers Name Role Phone Unavailable [...] you attend baptist or Patient refused 2021 confucianist services? Do [...] Historical Provider Ser - 10/31/2011 12:00 AM [employer] [id number] 06/19/2012 - Records released to self Source: [facility] Document Id: [id number] documented in this encounter Plan of Treatment Not on filedocumented as of this encounter Visit Diagnoses Not on filedocumented in this encounter
--- OUTSIDE RECORDS SUMMARY | 2022-09-15 10:23 | XMS_ITS | Encounter Summary ---
:1975 Author Organization [facility] Address [address] [place] [address] Care Team Providers Name Role Phone Unavailable Primary Care Provider Unavailable Encounter Details Date Type Department Care Team Description 06/29/2022 Orders Only Pharmacy Prior Auth Jose Teague [phone] Social History Tobacco Use Types Packs/Day Years [...] you attend anabaptist or Patient refused 2021 faith services? Do [...]
--- OUTSIDE RECORDS SUMMARY | 2022-09-15 10:23 | XMS_ITS | Encounter Summary ---
:1975 Author Organization [facility] Address [address] [place] [address] Care Team Providers Name Role Phone Unavailable [...] you attend holiness or Patient refused 2021 roman catholic services? [...]
--- OUTSIDE RECORDS SUMMARY | 2022-09-15 10:23 | XMS_ITS | Encounter Summary ---
:1975 Author Organization [facility] Address [address] [place] [address] Care Team Providers Name Role Phone Unavailable Primary Care Provider Unavailable Reason for Visit Reason Comments Rx Prior Authorization JORGE A DENIED - NURTEC 75MG TABS Encounter Details Date Type Department Care Team Description 06/29/2022 Clinical Pharmacy Prior Jose Burnham Rx Prior Communication Auth [phone] Authorization (JORGE A DENIED - NURTEC 75MG [...] you attend alevism or Patient refused 2021 jainism services? Do [...]
--- OUTSIDE RECORDS SUMMARY | 2022-09-15 10:23 | XMS_ITS | Encounter Summary ---
:1975 Author Organization [facility] Address [address] [place] [address] Care Team Providers Name Role Phone Unavailable Primary Care Provider Unavailable Reason for Visit Reason Comments Med Refill Encounter Details Date Type Department Care Team Description 04/13/2022 Refill Department of Neurology in Gus Schwarz M.D. Med Refill [place], [place] [address] [facility] [address] [place] [address] [place] [address] [phone] Social History Tobacco Use Types Packs/Day Years [...] you attend faith or Patient refused 2021 orthodox services? Do [...]
--- OUTSIDE RECORDS SUMMARY | 2022-09-15 10:24 | XMS_ITS | Encounter Summary ---
:[address] [facility] Address [address] [place] [address] Care Team Providers Name Role Phone Unavailable [...] you attend worship or Patient refused 2021 cheondoism services? Do you belong to any clubs [...]
--- OUTSIDE RECORDS SUMMARY | 2022-09-15 10:24 | XMS_ITS | Encounter Summary ---
:1975 Author Organization [facility] Address [address] [place] [address] Care Team Providers Name Role Phone Unavailable Primary Care Provider Unavailable Encounter Details Date Type Department Care Team Description 01/11/2008 Hospital Encounter [facility] Lucinda Gannon ra, R.N. Social [...] you attend latter-day or Patient refused 2021 zoroastrian services? Do [...] this encounter Miscellaneous Notes Telephone Encounter - Leyal Gannon R.N. - 01/11/2008 12:00 AM CDT [id number] Patient is calling to request an appointment for today for a pinched nerve in her neck. She statesthat the pain is now shooting up her head and down into her Right arm. She states that she has been having symptoms for 3 weeks but much worse yesterday. Scheduled w/ Dr Hutson this a.m. Source: [facility] RWMCHXTRANSXRTFSYS Document Id: [id number] documented in this encounter Plan of Treatment Not on filedocumented as of this encounter Visit Diagnoses Not on filedocumented in this encounter
--- OUTSIDE RECORDS SUMMARY | 2022-09-15 10:24 | XMS_ITS | Encounter Summary ---
:1975 Author Organization [facility] Address [address] [place] [address] Care Team Providers Name Role Phone Unavailable Primary Care Provider Unavailable Encounter Details Date Type Department Care Team Description 01/21/2007 Hospital Encounter HX NO MAPPING Piter Olson M.D. [address] [place] [phone] (Wo rk) Social History Tobacco [...] or relatives? How often do you attend anabaptism or Patient refused 2021 rastafari services? Do you belong to any clubs or Yes 06/22/2022 organizations such as anabaptism groups, unions, fraternal or athletic groups, or [...] Provider Quentin - 01/21/2007 10:45 AM CDT [id number] SUBJECTIVE: 31-year-old female presents complaining of low [...] up if not improving. Ramon Escobar Source: [facility] RWHXTRANSXRTFSYS Document Id: [id number] documented in this encounter Plan of Treatment Not on filedocumented as of this encounter Visit Diagnoses Not on filedocumented in this encounter
--- OUTSIDE RECORDS SUMMARY | 2022-09-15 10:24 | XMS_ITS | Encounter Summary ---
:1975 Author Organization [facility] Address [address] [place] [address] Care Team Providers Name Role Phone Unavailable Primary Care Provider Unavailable Encounter Details Date Type Department Care Team Description 01/26/2008 Hospital Encounter HX [facility] Jannet Ball M.D. [address] [place] [address] (Wo rk) Social History Tobacco [...] you attend mandaen or Patient refused 2021 yazidi services? Do [...] Rock L.P.N. - 01/26/2008 12:00 AM CDT [id number] She would like another option for her muscle spasm pain in upper back/shoulder.Prefers not to use the Darvocet and Vicodin and would like more of a muscle relaxer as oposed to pain meds. [employer]Her #[phone] Source: [facility]WORK[facility]ANSXRTF121nexus Document Id: [id number] Electronically signed by Conversion, [facility] Prevocational/Rehabilitation Counselor [id number] at 04/04/2017 1:36 AM CDT Telephone Encounter - Daniel Murphy M.D. - 01/26/2008 12:00 AM CDT [id number] This prescription has been authorized and faxed to [facility]. Please contact the patient with this information if necessary. Thank you. Source: [facility] Document Id: [id number] Electronically signed by Conversion, [facility] Prevocational/Rehabilitation Counselor [id number] at 04/04/2017 1:36 AM CDT Telephone Encounter - Conversion, Historical Provider Ser - 01/26/2008 12:00 AM CDT [id number] Left message on her cell phone. Source: [facility]XTRANSXRTF[facility] Document Id: [id number] documented in this encounter Plan of Treatment Not on filedocumented as of this encounter Visit Diagnoses Not on filedocumented in this encounter
--- OUTSIDE RECORDS SUMMARY | 2022-09-15 10:24 | XMS_ITS | Encounter Summary ---
:1975 Author Organization [facility] Address [address] [place] [address] Care Team Providers Name Role Phone Unavailable Primary Care Provider Unavailable Encounter Details Date Type Department Care Team Description 01/18/2008 Hospital Encounter HX [facility] Jannet Ball M.D. [address] [place] [address] (Wo rk) Social History Tobacco [...] or relatives? How often do you attend confucianist or Patient refused 2021 jain services? Do you belong to any clubs or Yes 06/22/2022 organizations such as confucianist groups, unions, fraternal or athletic groups, or [...] Ball M.D. - 01/18/2008 10:00 AM CDT [id number] Chief Complaint: Chief Complaint Patient presents with Headache has had headache for 1 week Pain right shoulder and back into right arm 103.9 fever last night. patient was sent to ER for spinal tap. Source: [facility] RWMCHXTRANSXRTFSYS Document Id: [id number] documented in this encounter Plan of Treatment Not on filedocumented as of this encounter Visit Diagnoses Not on filedocumented in this encounter
--- OUTSIDE RECORDS SUMMARY | 2022-09-15 10:24 | XMS_ITS | Encounter Summary ---
:1975 Author Organization [facility] Address [address] [place] [address] Care Team Providers Name Role Phone Unavailable Primary Care Provider Unavailable Encounter Details Date Type Department Care Team Description 11/23/2006 Hospital Encounter [facility] Jessica Corbin M.D. Social History Tobacco Use [...] you attend mormonism or Patient refused 2021 rastafari services? Do [...] Coles M.D. - 11/23/2006 2:30 PM CST [id number] Ms. Garcia presents today for pelvic pain. [...] in her stool. No sig vag D/C. 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 Source: [facility] RWHXTRANSXRTFSYS Document Id: [id number] documented in this encounter Miscellaneous Notes Miscellaneous - Conversion, Historical Provider Ser - 11/23/2006 2:30 PM BAIT TIER [id number] Vivek Garcia [address] [place] [id number] November 25, 2006 Dear Vivek Garcia, I am happy to inform you that your recent cervical cancer screening test (PAP smear) was normal. Preventative screening such as this helps insure your health for years to come. Congratulations for taking care of yourself! Please contact my office if you have any further questions. [phone]. Sincerely, Jessica Coles M.D. OBSTETRICS/GYNECOLOGY [facility] Source: [facility] Document Id: [id number] documented in this encounter Plan of Treatment Not on filedocumented as of this encounter Visit Diagnoses Not on filedocumented in this encounter
--- OUTSIDE RECORDS SUMMARY | 2022-09-15 10:24 | XMS_ITS | Encounter Summary ---
:1975 Author Organization [facility] Address [address] [place] [address] Care Team Providers Name Role Phone Unavailable Primary Care Provider Unavailable Encounter Details Date Type Department Care Team Description 11/22/2006 Hospital Encounter HX [facility] OBGYN Provider, Histor ical Social History [...] you attend buddhist or Patient refused 2021 pentecostal services? 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 You may call our office at [phone] to schedule an appointment for an Annual Physical. Please disregard this notice if you have already made an appointment. Sincerely, [facility] Source: [facility] Document Id: [id number] documented in this encounter Plan of Treatment Not on filedocumented as of this encounter Visit Diagnoses Not on filedocumented in this encounter
--- OUTSIDE RECORDS SUMMARY | 2022-09-15 10:24 | XMS_ITS | Encounter Summary ---
:1975 Author Organization [facility] Address [address] [place] [address] Care Team Providers Name Role Phone Unavailable Primary Care Provider Unavailable Encounter Details Date Type Department Care Team Description 01/12/[address] [facility] Artur Jimenez, R.N. Social History Tobacco [...] you attend sabianism or Patient refused 2021 jain services? Do [...] this encounter Miscellaneous Notes Telephone Encounter - Defore, SabineAdalid - 01/12/2008 12:00 AM CDT [id number] TELEPHONE TRIAGE ENCOUNTER FORM Date: 01/12/2008 PCP: Cedric Ball MD, MD Patient Name: Vivek Garcia Gender: female :1975 Age: [age] year old Time: 3:53 PM Phone Numbers: [phone] (home) [phone] (work) [facility]acy[facility] [place] [facility] Presenting [...] Triage Protocols for Nurses.Carlos Ivey - pgs. [phone] PLAN / INTERVENTION Disposition: Referred to ER - another person to drive Caller verbalizes understanding of disposition? YES Caller agrees to plan? Yes EVALUATION / FOLLOW-UP Advised patient to have another person drive her to ER for immediate assessment. Source: [facility] RWMCHXTRANSXRTFSYS Document Id: [id number] documented in this encounter Plan of Treatment Not on filedocumented as of this encounter Visit Diagnoses Not on filedocumented in this encounter
--- OUTSIDE RECORDS SUMMARY | 2022-09-15 10:24 | XMS_ITS | Encounter Summary ---
:1975 Author Organization [facility] Address [address] [place] [address] Care Team Providers Name Role Phone Unavailable [...] you attend mu-ism or Patient refused 2021 sabianist services? Do [...]
--- OUTSIDE RECORDS SUMMARY | 2022-09-15 10:24 | XMS_ITS | Encounter Summary ---
:1975 Author Organization [facility] Address [address] [place] [address] Care Team Providers Name Role Phone Unavailable [...] or relatives? How often do you attend yarsanism or Patient refused 2021 pentecostalism services? Do you belong to any clubs or Yes 06/22/2022 organizations such as yarsanism groups, unions, fraternal or athletic groups, or [...]
--- OUTSIDE RECORDS SUMMARY | 2022-09-15 10:24 | XMS_ITS | Encounter Summary ---
:1975 Author Organization [facility] Address [address] [place] [address] Care Team Providers Name Role Phone Unavailable Primary Care Provider Unavailable Encounter Details Date Type Department Care Team Description 01/12/2008 Hospital Encounter [facility] Jannet Ball M.D. [address] [place] [address] (Wo rk) Social History Tobacco [...] you attend adventist or Patient refused 2021 gnosticist services? Do [...] Provider Ser - 01/12/2008 12:00 AM CDT [id number] , you seen this pt. Yesterday, she had a shot yesterday, still having nausae,light sensitive and having headache, she is wondering if this is [phone] Source: [facility] Document Id: [id number] Telephone Encounter - Conversion, Historical Provider Ser - 01/12/2008 12:00 AM CDT [id number] Calling again. Headache worsening Source: [facility] Document Id: [id number] Telephone Encounter - Robert Hutson M.D. - 01/12/2008 12:00 AM CDT [id number] If she is still having significant headaches that are not resolving, she should be seen again. Please call to inform. Thank You! Source: [facility] Document Id: [id number] Electronically signed by Conversion, [facility] Java Application Developer [id number] at 04/04/2017 1:36 AM CDT Telephone Encounter - Conversion, Historical Provider Ser - 01/12/2008 12:00 AM CDT [id number] She is still having headaches. She is taking the vicodin. there. They are going to see if itgoes away in the next couple hours if not they will call for an appt. Source: [facility] Document Id: [id number] documented in this encounter Plan of Treatment Not on filedocumented as of this encounter Visit Diagnoses Not on filedocumented in this encounter
--- OUTSIDE RECORDS SUMMARY | 2022-09-15 10:24 | XMS_ITS | Encounter Summary ---
:1975 Author Organization [facility] Address [address] [place] [address] Care Team Providers Name Role Phone Unavailable [...] you attend denominational or Patient refused 2021 synagogue services? Do [...]
--- OUTSIDE RECORDS SUMMARY | 2022-09-15 10:24 | XMS_ITS | Encounter Summary ---
:1975 Author Organization [facility] Address [address] [place] [address] Care Team Providers Name Role Phone Unavailable Primary Care Provider Unavailable Encounter Details Date Type Department Care Team Description 01/24/2008 Hospital Encounter H[facility] Jannet Ball M.D. [address] [place] [address] (Wo rk) Social History Tobacco [...] you attend islam or Patient refused 2021 scientology services? Do [...] Ball M.D. 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 Source: [facility] RWHXTRANSXRTFSYS Document Id: [id number] Electronically signed by Conversion, [facility] Financial Reporting Director [id number] at 04/04/2017 1:36 AM CDT documented in this encounter Plan of Treatment Not on filedocumented as of this encounter Visit Diagnoses Not on filedocumented in this encounter
--- OUTSIDE RECORDS SUMMARY | 2022-09-15 10:24 | XMS_ITS | Encounter Summary ---
:1975 Author Organization [facility] Address [address] [place] [address] Care Team Providers Name Role Phone Unavailable [...] you attend methodist or Patient refused 2021 jewish services? Do you belong to any clubs [...] Provider Ser - 04/05/2008 12:00 AM CDT [id number] LETTER Vivek Garcia [address] [place] [phone] April 05, 2008 Dear Vivek: Our records indicate that you recently cancelled your appointment with Sana BandaSYulia, Geovani.C.S.W.. Thank you for notifying our office. You have no further appointments scheduled at this time. If you would like to schedule another appointment, please call at your earliest convenience at or, toll free at . We look forward to hearing from you. Thank you, [facility] Source: [facility] Document Id: [id number] documented in this encounter Plan of Treatment Not on filedocumented as of this encounter Visit Diagnoses Not on filedocumented in this encounter
--- OUTSIDE RECORDS SUMMARY | 2022-09-15 10:24 | XMS_ITS | Encounter Summary ---
:[address] [facility] Address [address] [place] [address] Care Team Providers Name Role Phone Unavailable [...] you attend mu-ism or Patient refused 2021 buddhism services? Do [...]
--- OUTSIDE RECORDS SUMMARY | 2022-09-15 10:24 | XMS_ITS | Encounter Summary ---
:1975 Author Organization [facility] Address [address] [place] [address] Care Team Providers Name Role Phone Unavailable [...] you attend judaism or Patient refused 2021 mormonism services? Do [...] Provider Ser - 01/12/2008 6:00 PM CDT [id number] Quick Note: Reviewed, discussed at visit. [facility] Document Id: [id number] Conversion, Historical Provider Ser - 01/12/2008 6:00 PM CDT [id number] Quick Note: Reviewed, discussed at visit. Source: [facility] Document Id: [id number] Conversion, Historical Provider Ser - 01/12/2008 6:00 PM CDT [id number] SUBJECTIVE: This is a 32-year-old female who [...] anything down. Headache is located across the denominational. She has no history of migraines prior [...] sent home. to drive her.Recommend continuing with kxdm-opv-owbszeq pain medications, as well as Vicodin. Symptoms [...] in agreement. MINDA Apodaca/sarath Source: [facility] RWHXTRANSXRTFSYS Document Id: [id number] documented in this encounter Plan of Treatment Not on filedocumented as of this encounter Visit Diagnoses Not on filedocumented in this encounter
--- OUTSIDE RECORDS SUMMARY | 2022-09-15 10:24 | XMS_ITS | Encounter Summary ---
:1975 Author Organization [facility] Address [address] [place] [address] Care Team Providers Name Role Phone Unavailable [...] you attend catholic or Patient refused 2021 hinduism services? Do you belong to any clubs [...]
--- OUTSIDE RECORDS SUMMARY | 2022-09-15 10:24 | XMS_ITS | Encounter Summary ---
:1975 Author Organization [facility] Address [address] [place] [address] Care Team Providers Name Role Phone Unavailable [...] you attend amish or Patient refused 2021 mormonism services? Do [...]
--- OUTSIDE RECORDS SUMMARY | 2022-09-15 10:24 | XMS_ITS | Encounter Summary ---
:1975 Author Organization [facility] Address [address] [place] [address] Care Team Providers Name Role Phone Unavailable Primary Care Provider Unavailable Encounter Details Date Type Department Care Team Description 01/18/2008 - Hospital Encounter HX NO MAPPING Cris Grier V., 01/21/2008 [address] [place] [address] (Wo rk) Social History Tobacco Use Types [...] you attend hoahaoism or Patient refused 2021 mormonism services? Do [...]
--- OUTSIDE RECORDS SUMMARY | 2022-09-15 10:24 | XMS_ITS | Encounter Summary ---
:1975 Author Organization [facility] Address [address] [place] [address] Care Team Providers Name Role Phone Unavailable [...] or relatives? How often do you attend religious or Patient refused 2021 adventism services? Do you belong to any clubs or Yes 06/22/2022 organizations such as religious groups, unions, fraternal or athletic groups, or [...]
--- OUTSIDE RECORDS SUMMARY | 2022-09-15 10:24 | XMS_ITS | Encounter Summary ---
:1975 Author Organization [facility] Address [address] [place] [address] Care Team Providers Name Role Phone Unavailable [...] you attend yazidi or Patient refused 2021 jain services? Do [...] Grier M.D. - 01/18/2008 2:35 PM CDT [id number] [facility] [address] [facility], [address] Name: Vivek Garcia Birthdate: 1975 [facility] Admission Date: 01/18/08 Allergy: [...] minutes. Dr. Danielle Grier MD 01/21/2008 Source: [facility] RWHXTRANSXRTFSYS Document Id: [id number] Electronically signed by Conversion, [facility] Visual Arts Teacher [id number] at 04/04/2017 1:36 AM CDT Miscellaneous - Conversion, Historical Provider Ser - 01/18/2008 2:35 PM CDT [id number] [facility] [address] [facility], [address] Name: Vivek Garcia Birthdate: 1975 SSN: [id number] [facility] Allergy: No known allergies Discharge Date: [...] documentation info: (time, how & by). Source: [facility] RWHXTRANSXRTFSYS Document Id: [id number] documented in this encounter Plan of Treatment Not on filedocumented as of this encounter Visit Diagnoses Not on filedocumented in this encounter
--- OUTSIDE RECORDS SUMMARY | 2022-09-15 10:24 | XMS_ITS | Encounter Summary ---
:1975 Author Organization [facility] Address [address] [place] [address] Care Team Providers Name Role Phone Unavailable Primary Care Provider Unavailable Encounter Details Date Type Department Care Team Description 03/16/2007 Hospital Encounter HX [facility] Provider, Historic al Social History [...] or relatives? How often do you attend zoroastrian or Patient refused 2021 quaker services? Do you belong to any clubs or Yes 06/22/2022 organizations such as zoroastrian groups, unions, fraternal or athletic groups, or [...]
--- OUTSIDE RECORDS SUMMARY | 2022-09-15 10:24 | XMS_ITS | Encounter Summary ---
:1975 Author Organization [facility] Address [address] [place] [address] Care Team Providers Name Role Phone Unavailable [...] you attend sabianist or Patient refused 2021 buddhism services? Do [...]
--- OUTSIDE RECORDS SUMMARY | 2022-09-15 10:24 | XMS_ITS | Encounter Summary ---
:1975 Author Organization [facility] Address [address] [place] [address] Care Team Providers Name Role Phone Unavailable Primary Care Provider Unavailable Encounter Details Date Type Department Care Team Description 11/08/2006 Hospital Encounter [facility] Provider, Historic al Social History [...] you attend mormon or Patient refused 2021 congregation services? Do [...]
--- OUTSIDE RECORDS SUMMARY | 2022-09-15 10:24 | XMS_ITS | Encounter Summary ---
:1975 Author Organization [facility] Address [address] [place] [address] Care Team Providers Name Role Phone Unavailable Primary Care Provider Unavailable Encounter Details Date Type Department Care Team Description 01/11/2008 Hospital En[facility] Robert Hutson M.D. [address] [place] [phone] (Wo rk) Social History Tobacco Use [...] you attend confucianist or Patient refused 2021 jewish services? Do [...] Hutson M.D. 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
--- OUTSIDE RECORDS SUMMARY | 2022-09-15 10:24 | XMS_ITS | Encounter Summary ---
:1975 Author Organization [facility] Address [address] [place] [address] Care Team Providers Name Role Phone Unavailable [...] you attend episcopalian or Patient refused 2021 pentecostal services? Do [...]
--- OUTSIDE RECORDS SUMMARY | 2022-09-15 10:24 | XMS_ITS | Encounter Summary ---
:1975 Author Organization [facility] Address [address] [place] [address] Care Team Providers Name Role Phone Unavailable Primary Care Provider Unavailable Encounter Details Date Type Department Care Team Description 01/15/2008 Hospital Encounter [facility] Provider, Jackson boo Social History Tobacco Use [...] you attend rastafari or Patient refused 2021 buddhist services? 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 Medication side effects were reviewed. Recheck in 3-4 days with FP provider, sooner if needed. All questions answered. Patient expresses understanding and agrees with plan. Tori Pretty PA-C Source: [facility] RWHXTRANSXRTFSYS Document Id: [id number] documented in this encounter Plan of Treatment Not on filedocumented as of this encounter Visit Diagnoses Not on filedocumented in this encounter
--- OUTSIDE RECORDS SUMMARY | 2022-09-15 10:24 | XMS_ITS | Encounter Summary ---
:1975 Author Organization [facility] Address [address] [place] [address] Care Team Providers Name Role Phone Unavailable [...] you attend hinduism or Patient refused 2021 tenriism services? Do [...]
--- OUTSIDE RECORDS SUMMARY | 2022-09-15 10:24 | XMS_ITS | Encounter Summary ---
:1975 Author Organization [facility] Address [address] [place] [address] Care Team Providers Name Role Phone Unavailable [...] you attend pentecostalism or Patient refused 2021 jehovah's witness services? Do you belong to any clubs [...] Provider Ser - 01/22/2008 12:00 AM CDT [id number] LETTER Vivek Hamiltonangelic Pedrazadrew [address] [place] [phone] January 22, 2008 Dear Vivek: Our records indicate that you missed your appointment with Juan Banda, Geovani.[place].SAmari. on: January 22, 2008 [facility] has a policy to bill for missed appointments. Appointments that arenot kept need to be cancelled at least 24 hours prior to the appointment to avoid being billed. Unfortunately, your insurance carrier will not cover a no show charge. You have no further appointments scheduled at this time, with Juan Banda, Geovani.C.S.WRosie. Ifyou would like to schedule another appointment, please call at your earliest convenience at [phone] or, toll-free at . Thank you, [facility] Source: [facility] Document Id: [id number] documented in this encounter Plan of Treatment Not on filedocumented as of this encounter Visit Diagnoses Not on filedocumented in this encounter
--- OUTSIDE RECORDS SUMMARY | 2022-09-15 10:24 | XMS_ITS | Encounter Summary ---
:1975 Author Organization [facility] Address [address] [place] [address] Care Team Providers Name Role Phone Unavailable Primary Care Provider Unavailable Encounter Details Date Type Department Care Team Description 01/23/2008 Hospital Encounter [facility]X [facility] Lucinda Gannon ra, R.N. [...] you attend congregational or Patient refused 2021 moravian services? Do [...] Gannon R.N. - 01/23/2008 12:00 AM CDT [id number] TELEPHONE TRIAGE ENCOUNTER FORM Date: 01/23/2008 PCP: Cedric Ball MD, MD Patient Name: Vivke Garcia Gender: female :1975 Age: [age] year old Time: 11:47 AM Phone Numbers: [phone] (home) Pharmacy: [facility] [place] [facility] Presenting Problem: I was just discharged [...] up. Protocol(s) Consulted: Per Nursing Judgement and [id number] PLAN / INTERVENTION Disposition: Home Care advice [...] in Urgent care or Emergency room. Source: [facility] RWHXTRANSXRTFSYS Document Id: [id number] documented in this encounter Plan of Treatment Not on filedocumented as of this encounter Visit Diagnoses Not on filedocumented in this encounter
--- OUTSIDE RECORDS SUMMARY | 2022-09-15 10:24 | XMS_ITS | Encounter Summary ---
:1975 Author Organization [facility] Address [address] [place] [address] Care Team Providers Name Role Phone Unavailable [...] you attend taoist or Patient refused 2021 latter day services? [...]
--- OUTSIDE RECORDS SUMMARY | 2022-09-15 10:24 | XMS_ITS | Encounter Summary ---
:1975 Author Organization [facility] Address [address] [place] [address] Care Team Providers Name Role Phone Unavailable Primary Care Provider Unavailable Encounter Details Date Type Department Care Team Description 01/17/[address] [facility] Provider, Historic al Social History [...] or relatives? How often do you attend restoration or Patient refused 2021 hinduism services? Do you belong to any clubs or Yes 06/22/2022 organizations such as restoration groups, unions, fraternal or athletic groups, or [...] Ball M.D. - 01/17/2007 8:45 AM CDT [id number] Quick Note: Results faxed to Dr. Nguyen. Source: [facility] RWHXTRANSXSYS Document Id: [id number] Electronically signed by Conversion, [facility] Prototype Machine Operator [id number] at 04/04/2017 10:54 AM CDT documented in this encounter Plan of Treatment Not on filedocumented as of this encounter Visit Diagnoses Not on filedocumented in this encounter
--- OUTSIDE RECORDS SUMMARY | 2022-09-15 10:24 | XMS_ITS | Encounter Summary ---
:1975 Author Organization [facility] Address [address] [place] [address] Care Team Providers Name Role Phone Unavailable [...] you attend sabianism or Patient refused 2021 sikh services? Do [...]
--- OUTSIDE RECORDS SUMMARY | 2022-09-15 10:25 | XMS_ITS | Encounter Summary ---
:1975 Author Organization [facility] Address [address] [place] [address] Care Team Providers Name Role Phone Unavailable Primary Care Provider Unavailable Encounter Details Date Type Department Care Team Description 03/29/2006 Hospital Encounter [facility] Taylor Castillo, MOHIT N, C.N.P. [address] [place], [place] [phone] (Wo rk) Social History [...] you attend adventism or Patient refused 2021 yazdanism services? Do [...] C.N.P., R.N. - 03/29/2006 12:00 AM CDT [id number] Spoke with patient, she is having symptoms [...] call or come in to clinic. Source: [facility] RWHXTRANSXRTFSYS Document Id: [id number] documented in this encounter Plan of Treatment Not on filedocumented as of this encounter Visit Diagnoses Not on filedocumented in this encounter
--- OUTSIDE RECORDS SUMMARY | 2022-09-15 10:25 | XMS_ITS | Encounter Summary ---
:1975 Author Organization [facility] Address [address] [place] [address] Care Team Providers Name Role Phone Unavailable Primary Care Provider Unavailable Encounter Details Date Type Department Care Team Description 11/02/2004 Hospital Encounter HX NO MAPPING Trav Evans M.D. [address] [place] [phone] (Wo rk) Social History Tobacco [...] you attend baptist or Patient refused 2021 yazidi services? Do [...]
--- OUTSIDE RECORDS SUMMARY | 2022-09-15 10:25 | XMS_ITS | Encounter Summary ---
:1975 Author Organization [facility] Address [address] [place] [address] Care Team Providers Name Role Phone Unavailable Primary Care Provider Unavailable Encounter Details Date Type Department Care Team Description 11/20/2004 Hospital Encounter [facility] Tomas Johnson M.D. [address] [place] [phone] (Wo rk) Social History Tobacco [...] you attend latter-day or Patient refused 2021 orthodoxy services? Do [...]
--- OUTSIDE RECORDS SUMMARY | 2022-09-15 10:25 | XMS_ITS | Encounter Summary ---
:1975 Author Organization [facility] Address [address] [place] [address] Care Team Providers Name Role Phone Unavailable Primary Care Provider Unavailable Encounter Details Date Type Department Care Team Description 06/21/2005 Hospital Encounter HX [facility] Tomas Johnson M.D. [address] [place] [phone] (Wo rk) Social History Tobacco [...] you attend yarsanism or Patient refused 2021 oriental orthodox services? [...] Provider Ser - 06/21/2005 12:00 AM CDT [id number] Vivek is calling to request that the dosage for Celexa be increased from 20 mg. per day. Continues to breastfeed 7 month old baby. Would like Rx phoned into [facility] in [place]. That number [phone]. She can be called on her cell phone number [phone]. Source: [facility] Document Id: [id number] Telephone Encounter - Virginia Redd L.P.N. - 06/21/2005 12:00 AM CDT [id number] left message on her cell phone to make an appt with Dr Evans or Oscar in order to increase her celexa Source: [facility] Document Id: [id number] Electronically signed by Conversion, [facility] Blanket Cutting Machine Operator [id number] at 04/04/2017 11:42 PM CDT documented in this encounter Plan of Treatment Not on filedocumented as of this encounter Visit Diagnoses Not on filedocumented in this encounter
--- OUTSIDE RECORDS SUMMARY | 2022-09-15 10:25 | XMS_ITS | Encounter Summary ---
:1975 Author Organization [facility] Address [address] [place] [address] Care Team Providers Name Role Phone Unavailable Primary Care Provider Unavailable Encounter Details Date Type Department Care Team Description 11/04/2004 Hospital Encounter [facility] Ameya Haji M.D. [address] [place], [place] [phone] (Wo rk) Social History [...] you attend adventism or Patient refused 2021 protestant services? Do [...] Stanley M.D. - 11/04/2004 11:00 AM CST [id number] Having LBP ?Ctxs. O: tender over upper sacrum, no CVAT. Cervix unchanged. A/P musc/skel pain. Tylenol prn. KG Source: [facility] RWMCHXTRANSXRTFSYS Document Id: [id number] Electronically signed by Conversion, [facility] Checkroom Chief [id number] at 04/04/2017 6:27 PM CDT documented in this encounter Plan of Treatment Not on filedocumented as of this encounter Visit Diagnoses Not on filedocumented in this encounter
--- OUTSIDE RECORDS SUMMARY | 2022-09-15 10:25 | XMS_ITS | Encounter Summary ---
:1975 Author Organization [facility] Address [address] [place] [address] Care Team Providers Name Role Phone Unavailable Primary Care Provider Unavailable Encounter Details Date Type Department Care Team Description 11/16/2004 Hospital Encounter HX [facility] OBGYN Provider, Histor ical Social History [...] or relatives? How often do you attend hindu or Patient refused 2021 yazidism services? Do you belong to any clubs or Yes 06/22/2022 organizations such as hindu groups, unions, fraternal or athletic groups, or [...]
--- OUTSIDE RECORDS SUMMARY | 2022-09-15 10:25 | XMS_ITS | Encounter Summary ---
:1975 Author Organization [facility] Address [address] [place] [address] Care Team Providers Name Role Phone Unavailable Primary Care Provider Unavailable Encounter Details Date Type Department Care Team Description 11/03/2004 Hospital Encounter [facility] Tomas Johnson M.D. [address] [place] [phone] (Wo rk) Social History Tobacco [...] you attend religion or Patient refused 2021 confucianism services? Do [...] Provider Ser - 11/03/2004 12:00 AM CST [id number] >> KIERA Gamez Nov 03, 2004 2:22 PM Ultrasound finds ovarian cysts to cont to be 6 and 7 cm diam. I recommend that ultrasound be done i mmediately after delivery because of the high chance of torsion at that time. Source: [facility] RWHXTRANSXSYS Document Id: [id number] documented in this encounter Plan of Treatment Not on filedocumented as of this encounter Visit Diagnoses Not on filedocumented in this encounter
--- OUTSIDE RECORDS SUMMARY | 2022-09-15 10:25 | XMS_ITS | Encounter Summary ---
:1975 Author Organization [facility] Address [address] [place] [address] Care Team Providers Name Role Phone Unavailable [...] you attend pentecostal or Patient refused 2021 restorationist services? Do [...] Provider Ser - 03/05/2005 12:00 AM CDT [id number] LETTER Vivek Garcia [address] [place] [address] March 05, 2005 Dear Vivek: Our records indicate that you recently cancelled your appointment with Robert Melara Asp, Ed.D., L.P.. Thank you for notifying our office. Your next scheduled appointment is: Saturday, March 12, 2005 at 9:00 AM If you are unable to keep this appointment, please call the [facility] Behavioral Health Department at your earliest convenience at or toll-free at to or cancel or reschedule. We look forward to hearing from you. Thank you, [facility] Source: [facility] RWHXTRANSXRTFSYS Document Id: [id number] documented in this encounter Plan of Treatment Not on filedocumented as of this encounter Visit Diagnoses Not on filedocumented in this encounter
--- OUTSIDE RECORDS SUMMARY | 2022-09-15 10:25 | XMS_ITS | Encounter Summary ---
:1975 Author Organization [facility] Address [address] [place] [address] Care Team Providers Name Role Phone Unavailable Primary Care Provider Unavailable Encounter Details Date Type Department Care Team Description 11/18/2004 Hospital Encounter [facility] Tomas Johnson M.D. [address] [place] [phone] (Wo rk) Social History Tobacco [...] you attend druze or Patient refused 2021 advent services? Do [...] Evans M.D. - 11/18/2004 9:30 AM CST [id number] leon 12/04/2004,back hurts, pelvis hurts, isn't sleeping,tylenol pm helps,has a yellow dischargeJZ to LD to monitor contractions wds Source: [facility] RWMCHXTRANSXRTFSYS Document Id: [id number] documented in this encounter Plan of Treatment Not on filedocumented as of this encounter Visit Diagnoses Not on filedocumented in this encounter
--- OUTSIDE RECORDS SUMMARY | 2022-09-15 10:25 | XMS_ITS | Encounter Summary ---
:1975 Author Organization [facility] Address [address] [place] [address] Care Team Providers Name Role Phone Unavailable Primary Care Provider Unavailable Encounter Details Date Type Department Care Team Description 11/22/2005 Hospital Encounter [facility]X [facility] OBGYN Provider, Histor ical Social History [...] you attend orthodox or Patient refused 2021 amish services? Do [...] Provider Ser - 11/22/2005 3:00 PM CST [id number] SUBJECTIVE: Vivek Garcia is a 30 year [...] recorded Is living? 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 Self exam is taughtand encouraged. STOCK PATCHER: Vagina and vulva are normal; no discharge is noted. Cervix normal, mildly prolapsing, pap smearobtained. Uterus anteverted and mobile, normal in size and shape without tenderness. Adnexa normal in size without masses or tenderness. Extremities: Appear normal without erythema, edema or contusion. Skin normal color and temperature. ASSESSMENT/PLAN: V72.31 ROUTINE STOCK PATCHER EXAMINATION (primary encounter diagnosis) Note: healthy Plan: [...] agrees with plan. Tori Pretty PA-C [facility]: [facility] Document Id: [id number] documented in this encounter Miscellaneous Notes Miscellaneous - Conversion, Historical Provider Ser - 11/22/2005 3:00 PM CASH CHECKER [id number] Vivek Garcia [address] [place] [address] November 25, 2005 Dear Vivek Garcia, I am happy to inform you that your recent cervical cancer screening test (PAP smear) was normal. Preventative screening such as this helps insure your health for years to come. Congratulations for taking care of yourself! Please contact my office if you have any further questions. [phone]. Sincerely, MANISH Campbell [facility] Source: [facility] Document Id: [id number] documented in this encounter Plan of Treatment Not on filedocumented as of this encounter Visit Diagnoses Not on filedocumented in this encounter
--- OUTSIDE RECORDS SUMMARY | 2022-09-15 10:25 | XMS_ITS | Encounter Summary ---
:1975 Author Organization [facility] Address [address] [place] [address] Care Team Providers Name Role Phone Unavailable [...] attend latter day or Patient refused 2021 voodoo services? Do [...] of this encounter Miscellaneous Notes Miscellaneous - Sriram Bryant Provider Ser - 12/21/2004 12:00 AM QUARRY PLANT CRUSHER OPERATOR [id number]-MMI LETTER Vivek Garcia [address] [place] [address] December 21, 2004 Dear Vivek: Thank you for requesting an appointment for services at the [facility] Behavioral Health Department. Initial appointments have been scheduled in our Psychology Department with: Robert Lee, Ph.D., L.P. December at 11:00 AM located on the 3rd floor: [facility] at [address] [place] [address]. If the above scheduled appointment is not [...] be a pleasant and worthwhile one. Sincerely, [facility] Source: [facility] RWHXTRANSXRTFSYS Document Id: [id number] documented in this encounter Plan of Treatment Not on filedocumented as of this encounter Visit Diagnoses Not on filedocumented in this encounter
--- OUTSIDE RECORDS SUMMARY | 2022-09-15 10:25 | XMS_ITS | Encounter Summary ---
:1975 Author Organization [facility] Address [address] [place] [address] Care Team Providers Name Role Phone Unavailable [...] you attend latter-day or Patient refused 2021 yarsani services? Do [...]
--- OUTSIDE RECORDS SUMMARY | 2022-09-15 10:25 | XMS_ITS | Encounter Summary ---
:1975 Author Organization [facility] Address [address] [place] [address] Care Team Providers Name Role Phone Unavailable [...] you attend sikh or Patient refused 2021 holiness services? Do you belong to any clubs [...]
--- OUTSIDE RECORDS SUMMARY | 2022-09-15 10:25 | XMS_ITS | Encounter Summary ---
:1975 Author Organization [facility] Address [address] [place] [address] Care Team Providers Name Role Phone Unavailable Primary Care Provider Unavailable Encounter Details Date Type Department Care Team Description 09/13/2006 Hospital Encounter [facility] Provider, Historic al Social History [...] you attend religious or Patient refused 2021 gnosticism services? Do [...]
--- OUTSIDE RECORDS SUMMARY | 2022-09-15 10:25 | XMS_ITS | Encounter Summary ---
:1975 Author Organization [facility] Address [address] [place] [address] Care Team Providers Name Role Phone Unavailable [...]
--- OUTSIDE RECORDS SUMMARY | 2022-09-15 10:25 | XMS_ITS | Encounter Summary ---
:1975 Author Organization [facility] Address [address] [place] [address] Care Team Providers Name Role Phone Unavailable [...] you attend mu-ism or Patient refused 2021 jainism services? Do [...]
--- OUTSIDE RECORDS SUMMARY | 2022-09-15 10:25 | XMS_ITS | Encounter Summary ---
:1975 Author Organization [facility] Address [address] [place] [address] Care Team Providers Name Role Phone Unavailable [...] you attend alevism or Patient refused 2021 christian services? Do [...]
--- OUTSIDE RECORDS SUMMARY | 2022-09-15 10:25 | XMS_ITS | Encounter Summary ---
:1975 Author Organization [facility] Address [address] [place] [address] Care Team Providers Name Role Phone Unavailable Primary Care Provider Unavailable Encounter Details Date Type Department Care Team Description 11/09/2004 Hospital Encounter [facility] OBGYN Provider, Histor ical Social History Tobacco [...] you attend taoism or Patient refused 2021 mosque services? Do [...]
--- OUTSIDE RECORDS SUMMARY | 2022-09-15 10:25 | XMS_ITS | Encounter Summary ---
:1975 Author Organization [facility] Address [address] [place] [address] Care Team Providers Name Role Phone Unavailable [...] or relatives? How often do you attend gnosticism or Patient refused 2021 religion services? Do you belong to any clubs or Yes 06/22/2022 organizations such as gnosticism groups, unions, fraternal or athletic groups, or [...]
--- OUTSIDE RECORDS SUMMARY | 2022-09-15 10:25 | XMS_ITS | Encounter Summary ---
:1975 Author Organization [facility] Address [address] [place] [address] Care Team Providers Name Role Phone Unavailable Primary Care Provider Unavailable Encounter Details Date Type Department Care Team Description 09/07/2006 Hospital Encounter [facility] Jannet Ball M.D. [address] [place] [address] (Wo rk) Social History Tobacco [...] you attend restoration or Patient refused 2021 samaritan services? Do [...] Ball M.D. - 09/07/2006 11:00 AM CST [id number] S: Vivek Garcia is a 31 year old female presenting to discuss acne. She has had acne for many years. She has been seeing Dr. Silva Nguyen for years. Symptoms described as pain, redness. Current and past treatments used: multiple creams, peels, and laser. She has sebacceous hyperplasia. She needs monthly labs done since she is starting Accutane through Dr. Nguyen in [place], [place]. She also needsa referral. She has [...] symptoms. 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 Symptoms are worse at night and in manager gift. No numbness. No close family history ofrheumatoid [...] order labs to Dr. Silva Nguyen at [phone]. 996.91 INFEC/INFLAM-FOREIGN POLICY OFFICER PROST DEV Note: Inflammation of left breast prosthesis. Plan: CONSULT TO PLASTIC SURGERY to discuss her options. 502.64 JOINT PAIN-FOREARM Note: Possible carpal tunnel syndrome. Plan: Medium BLACK WRIST SPLINT (RW)given for left hand to wear at night. If improved, will place order for medium right wrist splint. Try NSAID in the morning only with food for pain/inflammation. Source: [facility] Document Id: [id number] documented in this encounter Plan of Treatment Not on filedocumented as of this encounter Visit Diagnoses Not on filedocumented in this encounter
--- OUTSIDE RECORDS SUMMARY | 2022-09-15 10:25 | XMS_ITS | Encounter Summary ---
:1975 Author Organization [facility] Address [address] [place] [address] Care Team Providers Name Role Phone Unavailable [...] you attend mormonism or Patient refused 2021 lutheran services? Do [...] Historical Provider Ser - 11/18/2004 12:00 AM REFRIGERATION ENGINEER [id number] Abstracted by JA Sales Management Trainee on 11/20/2004 [facility] [address] [place], [place] [address] VIVEK HENDERSON : 71 Room Number: 3312-1 [...] and baby are doing well. Trav Evans M.D./[facility] [place] [facility] Source: [facility] RWHXTRANSXSYS Document Id: [id number] documented in this encounter Plan of Treatment Not on filedocumented as of this encounter Visit Diagnoses Not on filedocumented in this encounter
--- OUTSIDE RECORDS SUMMARY | 2022-09-15 10:25 | XMS_ITS | Encounter Summary ---
:1975 Author Organization [facility] Address [address] [place] [address] Care Team Providers Name Role Phone Unavailable Primary Care Provider Unavailable Encounter Details Date Type Department Care Team Description 10/03/2006 Hospital Encounter [facility] Zaira Corbin M.D. Social History Tobacco [...] you attend rastafari or Patient refused 2021 advent services? Do [...] this encounter Miscellaneous Notes Telephone Encounter - Sanket, Zaira L, M.D. - 10/03/2006 12:00 AM CST [id number] Addended by: ZAIRA BELL on: 10/06/2006 4:13:03 PM Modules accepted: Orders [facility] Document Id: [id number] Electronically signed by Conversion, [facility] Journeyman Level Acoustic Analyst [id number] at 04/04/2017 2:02 PM CDT Telephone Encounter - Key Pedraza R.N. - 10/03/2006 12:00 AM CST [id number] Patient called in wanting to try the Estrogen cream that was discussed at her last appointment with Dr. Bell (09-21-06). She said at that time, she did not have an interest in trying the cream, but she is still having burning and itching symptoms, and would like to now give the cream a try. Her phone number is [phone]. Pharmacy - [facility]. Source: [facility] Document Id: [id number] Electronically signed by Conversion, [facility] Journeyman Level Acoustic Analyst [id number] at 04/04/2017 2:02 PM CDT Telephone Encounter - Zaira Bell M.D. - 10/03/2006 12:00 AM CST [id number] Please let her know Rx for estrogen cream was sent. KD [facility] Document Id: [id number] Electronically signed by Conversion, [facility] Journeyman Level Acoustic Analyst [id number] at 04/04/2017 2:02 PM CDT Telephone Encounter - Conversion, Historical Provider Ser - 10/03/2006 12:00 AM CST [id number] Vivek was called in regards to faxed script. She then requested a referral for her for counseling with her . She stated you had discussed this at her last visit. Her would rather not have Dr. Moore. Can we please call her when and if this is arranged. Thanks BR Source: [facility] Document Id: [id number] Telephone Encounter - Zaira Bell M.D. - 10/03/2006 12:00 AM CST [id number] Let her know I wrote the consult and she needs to call them to set up an appointment. Source: [facility] Document Id: [id number] Electronically signed by Conversion, [facility] Journeyman Level Acoustic Analyst [id number] at 04/04/2017 2:02 PM CDT Telephone Encounter - Conversion, Historical Provider Ser - 10/03/2006 12:00 AM CST [id number] Called pt & told her RX was ready [facility]. Source: [facility] Document Id: [id number] documented in this encounter Plan of Treatment Not on filedocumented as of this encounter Visit Diagnoses Not on filedocumented in this encounter
--- OUTSIDE RECORDS SUMMARY | 2022-09-15 10:25 | XMS_ITS | Encounter Summary ---
:1975 Author Organization [facility] Address [address] [place] [address] Care Team Providers Name Role Phone Unavailable Primary Care Provider Unavailable Encounter Details Date Type Department Care Team Description 12/18/2004 Hospital Encounter [facility] INTERNMED Bharat Luis M.D. [address] [place] [address] (Wo rk) Social History Tobacco [...] you attend congregation or Patient refused 2021 evangelical services? Do [...] Luis M.D. - 12/18/2004 11:00 AM CST [id number] Addended by: MARVEL LUIS on: 12/18/2004 5:07:37 PM Modules accepted: Orders Source: [facility] Document Id: [id number] Electronically signed by Conversion, [facility] Seed Production Field Supervisor [id number] at 04/04/2017 9:38 PM CDT Marvel Luis M.D. - 12/18/2004 11:00 AM CST [id number] Ms. Juwan Garcia is a 29 year old year old female . No chief complaint on file. 1. Spots on face-longstanding. 2. drinks, she is interested in getting him into counselling. Denies domestic violence. 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 Labs and test results were reviewed in [employer]. No other complaints The history section was reviewed in [employer]. Patient Active Problem List: SUPERVIS OTHER NORMAL [...] counselling services available in the area, including [facility]. She will makethe necessary phone call herself. Return if symptoms worsen or fail to improve. The assessment and plan were discussed with the patient and all questions were answered.Please see epic summary below for instructions given to patient Marvel Luis MD December 18, 2004 Source: [facility] RWMCHXTRANSXRTFSYS Document Id: [id number] Electronically signed by Manny, [facility] Seed Production Field Supervisor [id number] at 04/04/2017 9:38 PM CDT documented in this encounter Plan of Treatment Not on filedocumented as of this encounter Visit Diagnoses Not on filedocumented in this encounter
--- OUTSIDE RECORDS SUMMARY | 2022-09-15 10:25 | XMS_ITS | Encounter Summary ---
:1975 Author Organization [facility] Address [address] [place] [address] Care Team Providers Name Role Phone Unavailable [...] or relatives? How often do you attend uatsdin or Patient refused 2021 temple services? Do you belong to any clubs or Yes 06/22/2022 organizations such as uatsdin groups, unions, fraternal or athletic groups, or [...]
--- OUTSIDE RECORDS SUMMARY | 2022-09-15 10:25 | XMS_ITS | Encounter Summary ---
:1975 Author Organization [facility] Address [address] [place] [address] Care Team Providers Name Role Phone Unavailable [...] you attend anabaptist or Patient refused 2021 worship services? Do [...] Provider Ser - 11/18/2004 12:00 AM REFRIGERATION UNIT REPAIRER [id number] Addended by: LUIS PALUMBO (PRICE) on: 12/03/2004 8:49:51 AM Modules accepted: Orders Abstracted by VANDA Casing Mixer on 11/20/2004 [facility] [address] [place], [place] [address] VIVEK HENDERSON : 71 Room Number: 3312-1 [...] SYSTEMS: Negative other than mentioned above and Supervisor Meter Shop with this . LABS: The patient is [...] to be placed. Trav Evans M.D./britton Source: [facility] RWHXTRANSXSYS Document Id: [id number] documented in this encounter Plan of Treatment Not on filedocumented as of this encounter Visit Diagnoses Not on filedocumented in this encounter
--- OUTSIDE RECORDS SUMMARY | 2022-09-15 10:25 | XMS_ITS | Encounter Summary ---
:1975 Author Organization [facility] Address [address] [place] [address] Care Team Providers Name Role Phone Unavailable Primary Care Provider Unavailable Encounter Details Date Type Department Care Team Description 09/21/2006 Hospital Encounter [facility] Jessica Coribn M.D. Social History Tobacco Use Types Packs/Day [...] you attend presybeterian or Patient refused 2021 catholic services? Do [...] Coles M.D. - 09/21/2006 3:15 PM CST [id number] MS. Garcia is here to evaluate cramping with ovulation and feeling like something is falling out. HPI: She is a 31 year old Obstetric History T3 P0 TAB0 SAB1 E0 M0 L3 with Patient's last menstrual period was 09/08/2006. using vasectomy for contraception. She has been having pain mentioned above and trouble with anxiety. SUPERVISOR WINTER HX: h/o abn paps, no recent infections, [...] non tender without masses, rebound or guarding Guidance Secretary Exam: Lymph: no enlarged groin nodes External [...] or other meds t thsi point. Source: [facility] RWMCHXTRANSXRTFSYS Document Id: [id number] documented in this encounter Plan of Treatment Not on filedocumented as of this encounter Visit Diagnoses Not on filedocumented in this encounter
--- OUTSIDE RECORDS SUMMARY | 2022-09-15 10:25 | XMS_ITS | Encounter Summary ---
:1975 Author Organization [facility] Address [address] [place] [address] Care Team Providers Name Role Phone Unavailable Primary Care Provider Unavailable Encounter Details Date Type Department Care Team Description 01/14/2006 Hospital Encounter [facility] Ra matt Strauss, P.A.-C. [address] [place] [address] (Wo rk) Social History Tobacco [...] you attend moravian or Patient refused 2021 jehovah's witness services? [...]
--- OUTSIDE RECORDS SUMMARY | 2022-09-15 10:25 | XMS_ITS | Encounter Summary ---
:1975 Author Organization [facility] Address [address] [place] [address] Care Team Providers Name Role Phone Unavailable [...] you attend amish or Patient refused 2021 mandaeism services? Do [...]
--- OUTSIDE RECORDS SUMMARY | 2022-09-15 10:25 | XMS_ITS | Encounter Summary ---
:1975 Author Organization [facility] Address [address] [place] [address] Care Team Providers Name Role Phone Unavailable Primary Care Provider Unavailable Encounter Details Date Type Department Care Team Description 11/02/2004 Hospital Encounter HX [facility] Taylor Castillo, MOHIT N, C.N.P. [address] [place], [place] [address] (Wo rk) Social History [...] you attend evangelical or Patient refused 2021 gnosticism services? Do [...] Provider Ser - 11/02/2004 11:45 AM CST [id number] Addended by: TAYLOR GLOVER. on: 11/03/2004 8:25:45 AM Modules accepted: Ariella [...] Enc. to call with any concerns. Source: [facility] Document Id: [id number] Taylor Glover C.N.P., R.N. - 11/02/2004 11:45 AM CST [id number] GBS and HGB done today. plan and hospital arrival information given. Still has c/o low back pain. Not taking Zoloft,but feeling OK at this time. USG today to evaluate cyst on ovary. GRACE Source: [facility] Document Id: [id number] Electronically signed by [facility], [facility] Airline Hostess [id number] at 04/04/2017 6:27 PM CDT documented in this encounter Miscellaneous Notes Miscellaneous - Taylor Glover C.N.P., R.N. - 11/02/2004 11:45 AM CST [id number] Vivek EcheverriaSuhaJose [address] [place] [address] November 05, 2004 [id number] Dear Ms. Longoria: I am writing to [...] or problems, please contact our office at [phone]. Sincerely, Taylor Glover RN, TOILET PRODUCTS MOLDER Obstetrics and Gynecology Department [facility] Source: [facility] Document Id: [id number] documented in this encounter Plan of Treatment Not on filedocumented as of this encounter Visit Diagnoses Not on filedocumented in this encounter
--- OUTSIDE RECORDS SUMMARY | 2022-09-15 10:25 | XMS_ITS | Encounter Summary ---
:1975 Author Organization [facility] Address [address] [place] [address] Care Team Providers Name Role Phone Unavailable Primary Care Provider Unavailable Encounter Details Date Type Department Care Team Description 11/18/2004 - Hospital Encounter HX NO MAPPING Trav Evans M.D. 11/20/2004 [facility] [place], [place] [address] (Wo rk) Social History Tobacco [...] you attend cheondoism or Patient refused 2021 mormonism services? Do [...]
--- OUTSIDE RECORDS SUMMARY | 2022-09-15 10:25 | XMS_ITS | Encounter Summary ---
:1975 Author Organization [facility] Address [address] [place] [address] Care Team Providers Name Role Phone Unavailable [...] you attend zoroastrian or Patient refused 2021 presybeterian services? Do [...]
--- OUTSIDE RECORDS SUMMARY | 2022-09-15 10:25 | XMS_ITS | Encounter Summary ---
:1975 Author Organization [facility] Address [address] [place] [address] Care Team Providers Name Role Phone Unavailable [...] you attend restorationist or Patient refused 2021 yarsani services? Do [...] Historical Provider Ser - 09/21/2006 12:00 AM GARMENT PARTS CUTTER MACHINE [id number] LETTER Vivek Garcia [address] [address] September 21, 2006 Dear Vivek: Thank you for requesting an appointment for services at the [facility]. Initial 45 minute appointments have been scheduled in our Psychology Department with: Virginia Pierce, Ph.D., Thursday, October 12, 2006 at 11:00 AM located on the 3rd floor: [facility] at [address] If the above scheduled appointment is [...] be a pleasant and worthwhile one. Sincerely, [facility] Contact Information September 21, 2006 Intake done by: Tess EMR#: [id number] NAME: Vivek Garcia SSN: [id number] : 1975 Age: [age] year old Sex: female Spouse/ S.O.: - Parent/Guardian: - ADDRESS: [address] [place] [address], [place] [address] Phone Numbers: [phone] (home) Phone Contact: Home: Yes Messages: Yes [...] Dx's Epic Note date Court Ordered/Litigation No Kiln Car Unloader/Agency Sander Operator Address City/ST Zip Phone # Referral Information Caller: self Reason: Md swartz Referred by: Diego Location: Primary Care Physician: Cedric Ball MD, MD Medication: Xanax Dosage: - Appointments Appt. With: Virginia Pierce, Ph.D., CHIEF OF PLANNING Initial: we oct 12 11 a F/U: - 3rd.: - Intake Packet Sent on Wait List No Source: [facility] RWHXTRANSXRTFSYS Document Id: [id number] Miscellaneous - Conversion, Historical Provider Ser - 09/21/2006 12:00 AM GARMENT PARTS CUTTER MACHINE 78766-OXK LETTER Vivek Garcia [address] [address] October 07, 2006 MR# [id number] Dear Vivek Garcia, APPOINTMENT REMINDER: Our record indicates that it is time for you to be seen for an office visit with Cedric Ball M.D. You may call our office at [phone] to schedule an appointment for an Annual Physical. Please disregard this notice if you have already made an appointment. Sincerely, [facility] Source: [facility] Document Id: [id number] documented in this encounter Plan of Treatment Not on filedocumented as of this encounter Visit Diagnoses Not on filedocumented in this encounter
--- OUTSIDE RECORDS SUMMARY | 2022-09-15 10:25 | XMS_ITS | Encounter Summary ---
:1975 Author Organization [facility] Address [address] [place] [address] Care Team Providers Name Role Phone Unavailable Primary Care Provider Unavailable Encounter Details Date Type Department Care Team Description 03/26/2005 Hospital Encounter HX [facility] INTERNMED Jaswant Grier M.D. [address] [place] [address] (Wo rk) Social History Tobacco Use Types [...] you attend worship or Patient refused 2021 mormon services? Do [...] Grier M.D. - 03/26/2005 10:00 AM CDT [id number] Vivek Garcia is here for sore throat [...] me know if kids caught it. Source: [facility] RWHXTRANSXRTFSYS Document Id: [id number] documented in this encounter Plan of Treatment Not on filedocumented as of this encounter Visit Diagnoses Not on filedocumented in this encounter
--- OUTSIDE RECORDS SUMMARY | 2022-09-15 10:25 | XMS_ITS | Encounter Summary ---
:1975 Author Organization [facility] Address [address] [place] [address] Care Team Providers Name Role Phone Unavailable Primary Care Provider Unavailable Encounter Details Date Type Department Care Team Description 06/24/2005 Hospital Encounter [facility]X [facility] Ra matt Strauss, P.A.-C. [address] [place] [address] (Wo rk) Social History Tobacco [...] you attend pentecostalism or Patient refused 2021 taoism services? Do [...] Provider Ser - 06/24/2005 9:50 AM CDT [id number] Addended by: GABRIEL REID on: 06/25/2005 2:37:06 PM Modules accepted: Orders Source: [facility] Document Id: [id number] Cathy Strauss P.A.-C. - 06/24/2005 9:50 AM CDT [id number] SUBJECTIVE: Vivek is a 30 year old female who presents with dysuria and hematuria that began today. She has hadprevious UTIs. No fever or abdominal pain. OBJECTIVE: Blood pressure 102/60, pulse 80, temperature 98.7, temperature source Tympanic, weight 173 lbs 1.6 oz (78.5 kg), last menstrual period OB (12/04/04). UA shows 50-100 RBCs and 25-50 WBCs ASSESSMENT: UTI PLAN: per orders. Source: [facility] Document Id: [id number] Electronically signed by Conversion, [facility] Signal Repairer [id number] at 04/04/2017 11:42 PM CDT documented in this encounter Plan of Treatment Not on filedocumented as of this encounter Visit Diagnoses Not on filedocumented in this encounter
--- OUTSIDE RECORDS SUMMARY | 2022-09-15 10:25 | XMS_ITS | Encounter Summary ---
:1975 Author Organization [facility] Address [address] [place] [address] Care Team Providers Name Role Phone Unavailable [...] you attend yazidi or Patient refused 2021 synagogue services? Do [...]
--- OUTSIDE RECORDS SUMMARY | 2022-09-15 10:25 | XMS_ITS | Encounter Summary ---
:1975 Author Organization [facility] Address [address] [place] [address] Care Team Providers Name Role Phone Unavailable [...] attend roman catholic or Patient refused 2021 yarsanism services? Do you belong to any clubs [...]
--- OUTSIDE RECORDS SUMMARY | 2022-09-15 10:26 | XMS_ITS | Encounter Summary ---
:1975 Author Organization [facility] Address [address] [place] [address] Care Team Providers Name Role Phone Unavailable Primary Care Provider Unavailable Encounter Details Date Type Department Care Team Description 08/21/2004 Hospital Encounter [facility]X [facility] OBGYN Provider, Histor ical Social History [...] Provider Ser - 08/21/2004 9:45 AM CDT [id number] Addended by: BRENDA KRUSE on: 08/21/2004 1:37:13 PM Modules accepted: Orders Source: [facility] Document Id: [id number] Conversion, Historical Provider Ser - 08/21/2004 9:45 AM CDT [id number] continuing to have problems with rash, ssen by Aroldo Nguyen, biopsy results pending. is being seen at the next week JRN Source: [facility] Document Id: [id number] documented in this encounter Plan of Treatment Not on filedocumented as of this encounter Visit Diagnoses Not on filedocumented in this encounter
--- OUTSIDE RECORDS SUMMARY | 2022-09-15 10:26 | XMS_ITS | Encounter Summary ---
:[address] [facility] Address [address] [place] [address] Care Team Providers Name Role Phone Unavailable Primary Care Provider Unavailable Encounter Details Date Type Department Care Team Description 08/20/2004 Hospital Encounter [facility]X [facility] Sayra Weaver, L.P.N. [address] [place], [place] [address] Social History Tobacco Use [...] you attend synagogue or Patient refused 2021 catholic services? Do [...] Coles M.D. - 08/20/2004 12:00 AM CDT [id number] Vivek Longoria [address] [place] [address] [id number] August 20, 2004 Re: Ms. Longoria: Ms Longoria has been follow for her care here in [place]. She has had an ovarain cyst that is about 5cm - stable since april. She has also had increasing problems with rash - suspected to be PUPPS. I have included her , labs and sono. If you have any further questions or problems, please contact our office at [phone]. Sincerely, Jessica Coles MD Dept. MANUFACTURING TECHNOLOGY PROFESSOR [facility] Services Source: [facility] Document Id: [id number] Electronically signed by Conversion, [facility] Retail Loan Officer [id number] at 04/04/2017 6:13 PM CDT Telephone Encounter - Conversion, Historical Provider Ser - 08/20/2004 12:00 AM CDT [id number] >> SAYRA KRUSE Malgorzata Aug 20, 2004 8:38 AM I am faxing all the labs [facility] requested on Vivek. They also want a letter to be faxed briefly stati ng the tx she has had so far and how long she has had the reash. Will you please do this and I will fax with the labs. Source: [facility] Document Id: [id number] documented in this encounter Plan of Treatment Not on filedocumented as of this encounter Visit Diagnoses Not on filedocumented in this encounter
--- OUTSIDE RECORDS SUMMARY | 2022-09-15 10:26 | XMS_ITS | Encounter Summary ---
:1975 Author Organization [facility] Address [address] [place] [address] Care Team Providers Name Role Phone Unavailable Primary Care Provider Unavailable Encounter Details Date Type Department Care Team Description 08/19/2004 Hospital En[facility] Provider, Historic al Social [...] you attend restorationism or Patient refused 2021 yarsanism services? Do [...] Provider Ser - 08/19/2004 11:00 AM CDT [id number] Addended by: CHELITA TOURE on: 08/19/2004,3:15 PM Comment: orders placed in future/pt to retur n in the AMModules accepted: Order Summary, Progress Notes Source: [facility] RWHXTRANSXSYS Document Id: [id number] documented in this encounter Plan of Treatment Not on filedocumented as of this encounter Visit Diagnoses Not on filedocumented in this encounter
--- OUTSIDE RECORDS SUMMARY | 2022-09-15 10:26 | XMS_ITS | Encounter Summary ---
:1975 Author Organization [facility] Address [address] [place] [address] Care Team Providers Name Role Phone Unavailable Primary Care Provider Unavailable Encounter Details Date Type Department Care Team Description 08/11/2004 Hospital Encounter HX [facility] Gaurav Petit M.D. [address] [place] [address] (Wo rk) Social History Tobacco [...] you attend confucianist or Patient refused 2021 buddhism services? Do [...] Provider Ser - 08/11/2004 12:00 AM CDT [id number] >> TESS Gamez Aug 11, 2004 5:47 [...] message for her to call back. Source: [facility] RWHXTRANSXSYS Document Id: [id number] documented in this encounter Plan of Treatment Not on filedocumented as of this encounter Visit Diagnoses Not on filedocumented in this encounter
--- OUTSIDE RECORDS SUMMARY | 2022-09-15 10:26 | XMS_ITS | Encounter Summary ---
:1975 Author Organization [facility] Address [address] [place] [address] Care Team Providers Name Role Phone Unavailable Primary Care Provider Unavailable Encounter Details Date Type Department Care Team Description 09/16/2004 Hospital Encounter [facility] Ameya Haji M.D. [address] [place], [place] [address] (Wo rk) Social History [...] you attend anabaptism or Patient refused 2021 pentecostal services? Do [...] Stanley M.D. - 09/16/2004 2:45 PM CST [id number] ?Ctxs, likely [place], discussed PTL. O: closed/long/high A/P Brax morales. flu shot given. Feeling depressed . Her software applications specialist told me to go off it, it was building up in my system and gettingan allergic rxn. Advised pt to resume meds if feeling depressed, she agrees. KG Source: [facility] Document Id: [id number] documented in this encounter Plan of Treatment Not on filedocumented as of this encounter Visit Diagnoses Not on filedocumented in this encounter
--- OUTSIDE RECORDS SUMMARY | 2022-09-15 10:26 | XMS_ITS | Encounter Summary ---
:1975 Author Organization [facility] Address [address] [place] [address] Care Team Providers Name Role Phone Unavailable Primary Care Provider Unavailable Encounter Details Date Type Department Care Team Description 08/11/2004 Hospital [facility] Jessica Corbin M.D. Social History [...] you attend religious or Patient refused 2021 advent services? Do [...] Coles M.D. - 08/11/2004 1:15 PM CDT [id number] review results. Same size left ov cyst - recheck sono at about 30 wks and PRN. Discussed s/sx of torsion. reviewed sono with Saul. LEVY Source: [facility] RWHXTRANSXRTFSYS Document Id: [id number] documented in this encounter Plan of Treatment Not on filedocumented as of this encounter Visit Diagnoses Not on filedocumented in this encounter
--- OUTSIDE RECORDS SUMMARY | 2022-09-15 10:26 | XMS_ITS | Encounter Summary ---
:1975 Author Organization [facility] Address [address] [place] [address] Care Team Providers Name Role Phone Unavailable Primary Care Provider Unavailable Encounter Details Date Type Department Care Team Description 08/20/2004 Hospital [facility] Provider, Historic al Social History Tobacco [...] you attend druze or Patient refused 2021 yazdanism services? Do [...]
--- OUTSIDE RECORDS SUMMARY | 2022-09-15 10:26 | XMS_ITS | Encounter Summary ---
:1975 Author Organization [facility] Address [address] [place] [address] Care Team Providers Name Role Phone Unavailable Primary Care Provider Unavailable Encounter Details Date Type Department Care Team Description 10/15/2004 Hospital Encounter [facility] Zaira Corbin M.D. Social History Tobacco [...] you attend holiness or Patient refused 2021 druze services? Do [...] Provider Ser - 10/15/2004 11:30 AM CST [id number] Quick Note by: ZAIRA GARCIA on 10/15/04 at 1:41 PM. The patient was notified of her lab results. Source: [facility] Document Id: [id number] Zaira Garcia M.D. - 10/15/2004 11:30 AM CST [id number] hving cramping and some CTX, she is [...] agiana dn then post . KD Source: [facility] Document Id: [id number] Electronically signed by Conversion, [facility] Salesperson Flying Squad [id number] at 04/04/2017 6:21 PM CDT documented in this encounter Plan of Treatment Not on filedocumented as of this encounter Visit Diagnoses Not on filedocumented in this encounter
--- OUTSIDE RECORDS SUMMARY | 2022-09-15 10:26 | XMS_ITS | Encounter Summary ---
:1975 Author Organization [facility] Address [address] [place] [address] Care Team Providers Name Role Phone Unavailable [...] you attend taoist or Patient refused 2021 mosque services? Do [...] Provider Ser - 08/24/2004 12:00 AM CDT [id number] Date of R/C request: [id number] faxed to: [facility] @[phone] of D isclosure: All clinic labs 05-16-04 to 08-20-04, pap smr rf of 05-29-04 and derm. clinic enc notes of 08-10-04 and 08-03-04. NCPurpose of Disclosure: continuing medical careAuthorization: No - N/A Number of pages: 7Person processing request: RAkira, ARosieJRosie Source: [facility] RWHXTRANSXSYS Document Id: [id number] documented in this encounter Plan of Treatment Not on filedocumented as of this encounter Visit Diagnoses Not on filedocumented in this encounter
--- OUTSIDE RECORDS SUMMARY | 2022-09-15 10:26 | XMS_ITS | Encounter Summary ---
:1975 Author Organization [facility] Address [address] [place] [address] Care Team Providers Name Role Phone Unavailable [...] you attend mandaeism or Patient refused 2021 mosque services? Do [...] Historical Provider Ser - 08/31/2004 12:00 AM CONTROL AREA OPERATOR [id number] *-*-*-*INCOMING RECORDS*-*-*-*Pertinent information has been abstracted out of Incoming Records.To see a complete copy of the Records please refer to the scan below!Thanks [facility] tractor trailer operator Source: [facility] RWHXTRANSXSYS Document Id: [id number] documented in this encounter Plan of Treatment Not on filedocumented as of this encounter Visit Diagnoses Not on filedocumented in this encounter
--- OUTSIDE RECORDS SUMMARY | 2022-09-15 10:26 | XMS_ITS | Encounter Summary ---
:1975 Author Organization [facility] Address [address] [place] [address] Care Team Providers Name Role Phone Unavailable Primary Care Provider Unavailable Encounter Details Date Type Department Care Team Description 08/18/2004 Hospital Encounter [facility] Sayra Weaver, L.P.N. [address] [place], [place] [address] Social History Tobacco Use [...] attend latter day or Patient refused 2021 buddhist services? Do [...] Provider Ser - 08/18/2004 12:00 AM CDT [id number] Addended by: SAYRA KRUSE on: 08/18/2004 3:14:47 [...] this i will fax that too. >> AZIRA Gamez Aug 18, 2004 2:55 PM thank [...] 4 days. Her pharmacy is [facility]. Source: [facility] RWHXTRANSXSYS Document Id: [id number] documented in this encounter Plan of Treatment Not on filedocumented as of this encounter Visit Diagnoses Not on filedocumented in this encounter
--- OUTSIDE RECORDS SUMMARY | 2022-09-15 10:26 | XMS_ITS | Encounter Summary ---
:1975 Author Organization [facility] Address [address] [place] [address] Care Team Providers Name Role Phone Unavailable [...] you attend spiritism or Patient refused 2021 gnosticist services? Do [...]
--- OUTSIDE RECORDS SUMMARY | 2022-09-15 10:26 | XMS_ITS | Encounter Summary ---
:1975 Author Organization [facility] Address [address] [place] [address] Care Team Providers Name Role Phone Unavailable [...] you attend christianity or Patient refused 2021 yarsani services? Do [...]
--- OUTSIDE RECORDS SUMMARY | 2022-09-15 10:26 | XMS_ITS | Encounter Summary ---
:1975 Author Organization [facility] Address [address] [place] [address] Care Team Providers Name Role Phone Unavailable Primary Care Provider Unavailable Encounter Details Date Type Department Care Team Description 09/01/2004 Hospital Encounter HX [facility] Taylor Castillo, MOHIT N, C.N.P. [address] [place], [place] [phone] (Wo rk) Social History [...] or relatives? How often do you attend yazdanism or Patient refused 2021 pentecostalism services? Do you belong to any clubs or Yes 06/22/2022 organizations such as yazdanism groups, unions, fraternal or athletic groups, or [...] Provider Ser - 09/01/2004 9:00 AM CST [id number] Vivek is here for her 26 week [...] Sexual activity/intercourse: Yes Avoid nipple stimulation: Yes feeding plans: Yes Inverted nipple treatment: Yes Car seat: Yes Other topics discussed: Next appointment: Tubal Sterilization signed? No Date: Intitials: scheduled: No MD Choice: Paperwork completed: No Quick Note by: TAYLOR GLOVER on 09/02/04 at 12:25 PM. phoned with result, Fe supp encouraged [facility] Document Id: [id number] Taylor Glover, C.N.P., R.N. - 09/01/2004 9:00 AM CST [id number] 1 hr gtt and hgb done today, Preadmission and certificate forms given. Does c/o SANCHEZ's q day. Tylenol helps. Does not feel she is drinking enough fluids. Rash is doing better. PTL, FKC discussed. Does have pressure mid to lower abdomen,discussed belt. GRACE Source: [facility] Document Id: [id number] Electronically signed by Conversion, [facility] Microsoft Dynamics Manager Architect [id number] at 04/04/2017 10:12 PM CDT documented in this encounter Miscellaneous Notes Miscellaneous - Taylor Glover C.N.P., R.N. - 09/01/2004 9:00 AM CST [id number] Vivek Cartyangelic Longoria [address] [place] [address] 09/02/2004 Dear Vivek, I just wanted to [...] or problems, please contact our office at [phone]. Sincerely, Taylor Glover, RN, LITHOPONE MILL WORKER Dept. CARPET MEASURER [facility] Services Source: [facility] Document Id: [id number] documented in this encounter Plan of Treatment Not on filedocumented as of this encounter Visit Diagnoses Not on filedocumented in this encounter
--- OUTSIDE RECORDS SUMMARY | 2022-09-15 10:26 | XMS_ITS | Encounter Summary ---
:1975 Author Organization [facility] Address [address] [place] [address] Care Team Providers Name Role Phone Unavailable [...] you attend anabaptism or Patient refused 2021 taoist services? Do [...]
--- OUTSIDE RECORDS SUMMARY | 2022-09-15 10:26 | XMS_ITS | Encounter Summary ---
:1975 Author Organization [facility] Address [address] [place] [address] Care Team Providers Name Role Phone Unavailable Primary Care Provider Unavailable Encounter Details Date Type Department Care Team Description 10/02/2004 Hospital Encounter HX [facility] Ameya Haji M.D. [address] [place], [place] [phone] (Wo rk) Social History [...] you attend mormon or Patient refused 2021 uatsdin services? Do [...] Provider Ser - 10/02/2004 9:00 AM CST [id number] Addended by: SOL WHITING on: 10/07/2004 2:36:31 PM Modules accepted: Orders Source: [facility] Document Id: [id number] Saundra Stanley M.D. - 10/02/2004 9:00 AM CST [id number] Got flu shot. Last on steroids 3 months ago for rash, will need stress dose in labor. No significantctxs. KG Source: [facility] Document Id: [id number] Electronically signed by Conversion, [facility] Senior Technical Trainer [id number] at 04/04/2017 6:21 PM CDT documented in this encounter Plan of Treatment Not on filedocumented as of this encounter Visit Diagnoses Not on filedocumented in this encounter
--- OUTSIDE RECORDS SUMMARY | 2022-09-15 10:26 | XMS_ITS | Encounter Summary ---
:1975 Author Organization [facility] Address [address] [place] [address] Care Team Providers Name Role Phone Unavailable Primary Care Provider Unavailable Encounter Details Date Type Department Care Team Description 10/26/2004 Hospital Encounter HX [facility] Tomas Johnson M.D. [address] [place] [phone] (Wo rk) Social History Tobacco [...] you attend denominational or Patient refused 2021 latter day services? [...] Evans M.D. - 10/26/2004 1:30 PM CST [id number] leon 12/04/2004,c/o low back discomfort, x 1 week rec tylenol wds Source: [facility]XTR[facility]RT[facility] Document Id: [id number] Electronically signed by Conversion, [facility] Bookkeeping Machine Operator [id number] at 04/04/2017 6:21 PM CDT documented in this encounter Plan of Treatment Not on filedocumented as of this encounter Visit Diagnoses Not on filedocumented in this encounter
--- OUTSIDE RECORDS SUMMARY | 2022-09-15 10:27 | XMS_ITS | Encounter Summary ---
:1975 Author Organization [facility] Address [address] [place] [address] Care Team Providers Name Role Phone Unavailable Primary Care Provider Unavailable Encounter Details Date Type Department Care Team Description 08/01/2004 Hospital Encounter HX NO MAPPING Zion Cobian M.D. [address] [place] [phone] (Wo rk) Social History Tobacco [...] you attend mandaeism or Patient refused 2021 baptist services? Do [...]
--- OUTSIDE RECORDS SUMMARY | 2022-09-15 10:27 | XMS_ITS | Encounter Summary ---
:1975 Author Organization [facility] Address [address] [place] [address] Care Team Providers Name Role Phone Unavailable [...] you attend moravian or Patient refused 2021 tenriism services? Do [...] Provider Ser - 06/25/2001 12:00 AM CDT [id number] *-*-*-*-* SEE SCANNED REPORT *-*-*-*-* Source: [facility]YL[facility] Document Id: [id number] documented in this encounter Plan of Treatment Not on filedocumented as of this encounter Visit Diagnoses Not on filedocumented in this encounter
--- OUTSIDE RECORDS SUMMARY | 2022-09-15 10:27 | XMS_ITS | Encounter Summary ---
:1975 Author Organization [facility] Address [address] [place] [address] Care Team Providers Name Role Phone Unavailable Primary Care Provider Unavailable Encounter Details Date Type Department Care Team Description 06/25/2001 Hospital Encounter HX NO MAPPING Rahul Martins M.D. [address] [place] [address] Social History Tobacco Use Types Packs/Day Years [...] you attend religion or Patient refused 2021 judaism services? Do [...]
--- OUTSIDE RECORDS SUMMARY | 2022-09-15 10:27 | XMS_ITS | Encounter Summary ---
:1975 Author Organization [facility] Address [address] [place] [address] Care Team Providers Name Role Phone Unavailable Primary Care Provider Unavailable Encounter Details Date Type Department Care Team Description 05/15/[address] [facility] Provider, Histor ical Social History [...] you attend tenriism or Patient refused 2021 cheondoism services? Do [...] Provider Ser - 05/15/2004 12:30 PM CDT [id number] Genetic Screening: Negative for defects Infectious Diseases: Denies any history of sexually transmitted infections. Has had abnormal Pap smears in the pastSexual History has been with charles Sam rodriguez, 4.5 yrsS: Vivek is a 28 year old y/o, G 3, P 2. She is 11 weeks today. She has missed 2 period(s). Patient's LMP from OB Dating Form was 02/28/2004.. She is sure of her LMP. She lives in [place], with , Sam and two gaughter, Nathaly 7.5yrs and Murial 14mo. 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 Family is close and supportive. There is no previous medical history on file.Review of patient's past jose manuel gical history indicates: DINKEY BRAKEMAN PROCEDURE DATE: Comment: 2 vaginal del.Obstetric History T2 P1 TAB0 SAB0 E0 M0 L2 Misc. Assessment:Pren atal vitamins: Is taking them.Diet: Regular diet, no history of an eating disorder. Adequate calci um intake discussed. Transportation issues: noneSafe relationship: Vivek feels safe in current rel ationship. She has no history of abusive relationhips.Financial Concerns: no Insurance: [facility] Social Service/Public Health: noShe is [...] and bleeding, or any other concerns. Referrals: [facility] Document Id: [id number] Conversion, Historical Provider Ser - 05/15/2004 12:30 PM CDT [id number] New OB ED. CELE 12-03-04 Gest 11wk [facility]: [facility] Document Id: [id number] documented in this encounter Miscellaneous Notes Miscellaneous - Trav Evans M.D. - 05/15/2004 12:30 PM CDT [id number] Vivke Longoria [address] [place] [address] May 18, 2004 [id number] Dear Vivek Longoria LAB RESULTS: The results of your recent labs are NORMAL. Your blood type is A positive. If you have any further questions or problems, please contact our office at [phone] in Obstetrics/Gynecology. Sincerely, Trav Evans M.D. OBSTETRICS/GYNECOLOGY Source: [facility] Document Id: [id number] Electronically signed by Conversion, [facility] Administrator [id number] at 04/04/2017 6:56 PM CDT documented in this encounter Plan of Treatment Not on filedocumented as of this encounter Visit Diagnoses Not on filedocumented in this encounter
--- OUTSIDE RECORDS SUMMARY | 2022-09-15 10:27 | XMS_ITS | Encounter Summary ---
:1975 Author Organization [facility] Address [address] [address] Care Team Providers Name Role Phone Needs Pcp, Assignment Primary Care Provider Reason for Referral Consult/Transfer Care (Routine) - Closed Specialty Diagnoses / Procedures Referred By Contact Refer red To Contact Diagnoses Occipital neuralgia, unspecified laterality Dakota Aparicio MD [address] [place] [phone] Referral ID Status Reason Start Date Expiration Date Visits Requ ested Visits Authorized [id number] Closed 05/14/2020 11/10/2020 1 1 Scheduling Instructions [...] Clinic Dakota Aparicio MD REFERRAL REQUEST [address] [place] [address] [phone] (Wo rk) Social History Tobacco Use Types Packs/Day Years Used Date Smoking Tobacco: Never Smokeless Tobacco: Never Alcohol Use Standard Drinks/Week Comments Yes 0 (1 standard drink = 0.6 oz pure alcoho l) rarely Sex Assigned at Date Recorded Not on file documented as of this encounter Nursing Notes Marion Valerio - 05/14/2020 2:32 PM CDT Vivek is looking to be seen and the [facility] for her ONB relief surgery. Sounds like there is a doctor there who can see her and be closer to home. Vivek says she needs areferral sent [fax # [phone]] saying specifically the reason for the referral [...] Primary documented in this encounter Care Teams Return Agent Airport Relationship Specialty Start Date End Date Needs Pcp, Assignment PCP - General 04/24/14 [place] [address] documented as of this encounter
--- OUTSIDE RECORDS SUMMARY | 2022-09-15 10:27 | XMS_ITS | Encounter Summary ---
:1975 Author Organization [facility] Address [address] [place] [address] Care Team Providers Name Role Phone Needs Pcp, Assignment Primary Care Provider Reason for Visit Reason Onset Date Comments No Show 04/24/2020 Encounter Details Date Type Department Care Team Description 04/24/2020 Telemedicine [facility] Viky Fuentes Encou nters for LITTLE COMPTON PA-C administrative purposes [address] [place] [address] (Primary Dx) [place] [address] [phone] Social History Tobacco Use Types Packs/Day Years [...] purpose documented in this encounter Care Teams Senior Sharepoint Developer Relationship Specialty Start Date End Date Needs Pcp, Assignment PCP - General 04/24/14 [place], [place] [address] documented as of this encounter
--- OUTSIDE RECORDS SUMMARY | 2022-09-15 10:27 | XMS_ITS | Encounter Summary ---
:1975 Author Organization [facility] Address [address] [address] Care Team Providers Name Role Phone Needs Pcp, Assignment Primary Care Provider Reason for Visit Reason Comments Refill Encounter Details Date Type Department Care Team Description 02/03/2021 Refill [facility] Cristina Gallegos CMA Refill [address] [place], [place] [address] Social History Tobacco Use Types Packs/Day Years Used Date Smoking Tobacco: Never Smokeless Tobacco: Never Alcohol Use Standard Drinks/Week Comments Yes 0 (1 standard drink = 0.6 oz pure alcoho l) rarely Sex Assigned at Date Recorded Not on file documented as of this encounter Patient Instructions Patient InstructionsCristina Gallegos CMA - 02/03/2021 1:59 PM CDT Patient calling for refill [place] 5-325 mg. Last office visit with Barbara Lindsay CNP 01/19/2021: 3. Interventions: I recommended she have occipital nerve blocks/TPI with Dr. Aparicio to help break this cycle of pain. These have provided some temporizing in the past. ?? 4. Medications: A small amount of [place] was given to her today to use for severe pain episodes. She uses with this very sparingly and has had only 3 prescriptions in small quantities over the past year. SPLITTER HAND reviewed- #14 [place] prescribed on 12/23/20by Dr. Aparicio. Renewed RX today. documented in this encounter Nursing Notes Dakota Aparicio MD - 02/04/2021 3:00 PM CDT OK for #7 tabs of [place], but will work on transitioning off opioids. 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
--- OUTSIDE RECORDS SUMMARY | 2022-09-15 10:27 | XMS_ITS | Encounter Summary ---
:1975 Author Organization [facility] Address [address] [place] [address] Care Team Providers Name Role Phone Unavailable Primary Care Provider Unavailable Encounter Details Date Type Department Care Team Description 07/27/2004 Hospital Encounter [facility]X [facility] Tomas Johnson M.D. [address] [place] [phone] (Wo rk) Social History Tobacco [...] you attend adventist or Patient refused 2021 restorationism services? Do [...] Evans M.D. - 07/27/2004 10:30 AM CDT [id number] Rash at all flexor sites with initial itching site under left breast now thickened and warm, appearsas cellulitis. wds Source: [facility] RWMCHXTRANSXRTFSYS Document Id: [id number] Electronically signed by Conversion, [facility] Technical Service Engineer [id number] at 04/04/2017 7:00 PM CDT documented in this encounter Plan of Treatment Not on filedocumented as of this encounter Visit Diagnoses Not on filedocumented in this encounter
--- OUTSIDE RECORDS SUMMARY | 2022-09-15 10:27 | XMS_ITS | Encounter Summary ---
:1975 Author Organization [facility] Address [address] [place] [address] Care Team Providers Name Role Phone Unavailable Primary Care Provider Unavailable Encounter Details Date Type Department Care Team Description 05/15/2004 [facility] Tomas Johnson M.D. [address] [place] [phone] (Wo rk) Social History Tobacco [...] you attend scientologist or Patient refused 2021 temple services? Do [...] Provider Ser - 05/15/2004 11:00 AM CDT [id number] Addended by: TRAV ODEN on: 05/26/2004,9:19 AMModules accepted: Progress NotesVivek is a 28 year old white female, , here for Ob intake exam. She has been breast feeding and periods hav e been a little irreg.Her previous deliveries were at 37 and 36 weeks. She had a LEEP in 1991. Her last OB suggested a cerclage with her next .Cafeteria Or Lunchroom Checker HX: no infections, no incontinencePAS T MEDICAL HISTORY: There is no previous medical history on file.PAST SURGICAL HISTORY: Review of ayanna ramos's past surgical history indicates: PLANT WIRE CHIEF PROCEDURE DATE: Comment: 2 vaginal del. LEEP [...] at 12:09 PM. happy pap sent [facility]: [facility] Document Id: [id number] documented in this encounter Miscellaneous Notes Miscellaneous - Trav Oden M.D. - 05/15/2004 11:00 AM CDT [id number] Vivek Longoria [address] [place] [address] May 18, 2004 [id number] Dear Vivek Longoria LAB RESULTS: Your thyroid is NORMAL. The rest of the labs are still pending. If you have any further questions or problems, please contact our office at [phone] in Obstetrics/Gynecology. Sincerely, Trav Oden M.D. OBSTETRICS/GYNECOLOGY Source: [facility] Document Id: [id number] Electronically signed by Conversion, [facility] Mechanical Systems Design Engineer [id number] at 04/04/2017 6:56 PM CDT Miscellaneous - Conversion, Historical Provider Ser - 05/15/2004 11:00 AM CDT [id number] Vivek Longoria [address] [place] [address] May 29[birth year] 2004 Dear Vivek Longoria, I am happy to inform you that your recent cervical cancer screening test (PAP smear) was normal. Preventative screening such as this helps insure your health for years to come. Congratulations for taking care of yourself! Please contact my office if you have any further questions. [phone]. Sincerely, Trav Oden M.D. OBSTETRICS/GYNECOLOGY [facility] Source: [facility] Document Id: [id number] documented in this encounter Plan of Treatment Not on filedocumented as of this encounter Visit Diagnoses Not on filedocumented in this encounter
--- OUTSIDE RECORDS SUMMARY | 2022-09-15 10:27 | XMS_ITS | Encounter Summary ---
:1975 Author Organization [facility] Address [address] [place] [address] Care Team Providers Name Role Phone Needs Pcp, Assignment Primary Care Provider Reason for Visit Reason Comments Med Request Encounter Details Date Type Department Care Team Description 12/23/2020 Telephone [facility] Cristina Gallegos, Med Request [address] [place], [place] [address] Social History Tobacco Use Types Packs/Day Years Used Date Smoking Tobacco: Never Smokeless Tobacco: Never Alcohol Use Standard Drinks/Week Comments Yes 0 (1 standard drink = 0.6 oz pure alcoho l) rarely Sex Assigned at Date Recorded Not on file documented as of this encounter Nursing Notes Dakota Aparicio MD - 12/23/2020 3:54 PM CST LEAD PORTFOLIO MANAGER checked, last refill was 08/2020. Refill ordered. Dakota Aparicio MD 12/23/2020, 3:55 PM REVIEWER Cristina Gallegos [facility] - 12/23/2020 2:06 PM CST Patient is calling for a prescription fill of [place] 5-325. She will be traveling and can not bring the marijuana with her. She is taking tizanidine as well. Last office visit: 09/01/20 W/ AT 1. Investigations: none ?? 2. Consults: Pending consult at [facility], see HPI ?? 3. Interventions:none recommended today ?? 4. Medications: A small amount of [place] was given to her today to use [...] approaches ?? 7. Follow Up: as needed REVIEWER documented in this encounter Plan of Treatment Not on filedocumented as of this encounter Visit Diagnoses Diagnosis Spondylosis of cervical region without m yelopathy or radiculopathy ([facility]) Cervical spondylosis without myelopathy Occipital neuralgia of left side documented in this encounter Care Teams Engineering Group Leader Relationship Specialty Start Date End Date Needs Pcp, Assignment PCP - General 04/24/14 [place] [address] documented as of this encounter
--- OUTSIDE RECORDS SUMMARY | 2022-09-15 10:27 | XMS_ITS | Encounter Summary ---
:1975 Author Organization [facility] Address [address] [place] [address] Care Team Providers Name Role Phone Needs Pcp, Assignment Primary Care Provider Reason for Visit Reason Onset Date Comments Refill 12/22/2020 Encounter Details Date Type Department Care Team Description 12/22/2020 Refill [facility] Lila Garcia, RN Refill [address] [place], [place] [address] Social History Tobacco Use Types [...] on filedocumented in this encounter Care Teams Skid Machine Operator Relationship Specialty Start Date End Date Needs Pcp, Assignment PCP - General 04/24/14 [facility] [place] [address] documented as of this encounter
--- OUTSIDE RECORDS SUMMARY | 2022-09-15 10:27 | XMS_ITS | Encounter Summary ---
:1975 Author Organization [facility] Address [address] [address] Care Team Providers Name Role Phone Needs Pcp, Assignment Primary Care Provider Reason for Visit Reason Comments Refill Encounter Details Date Type Department Care Team Description 04/30/2021 Refill [facility] Barbara Lindsay APRN, INK GRINDER Refill [address] [facility] [address] [facility] [place] [address] [place] [address] [phone] (Wo rk) Social History Tobacco Use Types [...] on filedocumented in this encounter Care Teams Bookkeeper Assistant Relationship Specialty Start Date End Date Needs Pcp, Assignment PCP - General 04/24/14 [place] [address] documented as of this encounter
--- OUTSIDE RECORDS SUMMARY | 2022-09-15 10:27 | XMS_ITS | Encounter Summary ---
:1975 Author Organization [facility] Address [address] [place] [address] Care Team Providers Name Role Phone Unavailable Primary Care Provider Unavailable Encounter Details Date Type Department Care Team Description 05/26/2004 Hospital Encounter [facility] Tomas Johnson M.D. [address] [place] [phone] (Wo rk) Social History Tobacco [...] you attend jew or Patient refused 2021 baptism services? Do [...]
--- OUTSIDE RECORDS SUMMARY | 2022-09-15 10:27 | XMS_ITS | Encounter Summary ---
:1975 Author Organization [facility] Address [address] [address] Care Team Providers Name Role Phone Needs Pcp, Assignment Primary Care Provider Reason for Visit Reason Onset Date Comments No Show 03/28/2020 Encounter Details Date Type Department Care Team Description 03/28/2020 Telemedicine [facility] Viky Fuentes Encou nters for [facility] PASu[facility] administrative purposes [address] (Primary Dx) [place] [address] [phone] Social History Tobacco Use Types Packs/Day Years [...] purpose documented in this encounter Care Teams Insurance Processing Clerk Relationship Specialty Start Date End Date Needs Pcp, Assignment PCP - General 04/24/14 [place] [address] documented as of this encounter
--- OUTSIDE RECORDS SUMMARY | 2022-09-15 10:27 | XMS_ITS | Encounter Summary ---
:1975 Author Organization [facility] Address [address] [place] [address] Care Team Providers Name Role Phone Needs Pcp, Assignment Primary Care Provider Reason for Visit Reason Comments Medication Questions Encounter Details Date Type Department Care Team Description 12/11/2020 Telephone [facility] Barbara Lindsay, Medication Questions [address] [facility] GREGOR BENJAMIN [place], [place] [address] 8100 [facility] [phone] [place] [address] (Wo rk) Social History Tobacco Use Types Packs/Day Years Used Date Smoking Tobacco: Never Smokeless Tobacco: Never Alcohol Use Standard Drinks/Week Comments Yes 0 (1 standard drink = 0.6 oz pure alcoho l) rarely Sex Assigned at Date Recorded Not on file documented as of this encounter Nursing Notes Barbara Lindsay APRN, CNP - 12/11/2020 3:39 PM CST Cymbalta refilled and sent to her pharmacy INVESTIGATOR Kaylah Morgan RN - 12/11/2020 1:19 PM CST Refill request from [facility]. Last clinic visit was 09/01/20 did not discuss Duloxetine on Medication plan: 4. Medications: A small amount of [place] was given to her today to use for severe pain episodes. She uses with this very sparingly and has had only 2 prescriptions in small quantities over the past 11 months Can we authorize standing orders for this if its not mentioned in plan? Plus it needs to be re-written due to taper being completed. INVESTIGATOR documented in this encounter Plan of Treatment Not on filedocumented as of this encounter Visit Diagnoses Not on filedocumented in this encounter Care Teams Surveyor Helper Rod Relationship Specialty Start Date End Date Needs Pcp, Assignment PCP - General 04/24/14 [place] [address] documented as of this encounter
--- OUTSIDE RECORDS SUMMARY | 2022-09-15 10:27 | XMS_ITS | Encounter Summary ---
:1975 Author Organization [facility] Address [address] [place] [address] Care Team Providers Name Role Phone Needs Pcp, Assignment Primary Care Provider Reason for Visit Reason Comments Medication Request Encounter Details Date Type Department Care Team Description 08/25/2020 Telephone [facility] Lu Campos, Medication Request 8100 [facility] RN [place], [place] [address] Social History Tobacco Use Types [...] since 02-12-20, appt. Required. Patient transferred to fiberglass dowel drawing operator. documented in this encounter Plan of Treatment Not on filedocumented as of this encounter Visit Diagnoses Not on filedocumented in this encounter Care Teams Tractor Trailer Technician Relationship Specialty Start Date End Date Needs Pcp, Assignment PCP - General 04/24/14 [place] [address] documented as of this encounter
--- OUTSIDE RECORDS SUMMARY | 2022-09-15 10:27 | XMS_ITS | Encounter Summary ---
:1975 Author Organization [facility] Address [address] [place] [address] Care Team Providers Name Role Phone Unavailable Primary Care Provider Unavailable Encounter Details Date Type Department Care Team Description 05/22/2004 Hospital Encounter HX NO MAPPING Trav Evans M.D. [address] [place] [phone] (Wo rk) Social History Tobacco [...] you attend gnosticism or Patient refused 2021 mu-ism services? Do [...]
--- OUTSIDE RECORDS SUMMARY | 2022-09-15 10:27 | XMS_ITS | Encounter Summary ---
:[address] [facility] Address [address] [place] [address] Care Team Providers Name Role Phone Unavailable Primary Care Provider Unavailable Encounter Details Date Type Department Care Team Description 07/30/2004 Hospital Encounter HX [facility] Tomas Johnson M.D. [address] [place] [phone] (Wo rk) Social History Tobacco [...] you attend pentecostal or Patient refused 2021 yazidism services? Do [...] Evans M.D. - 07/30/2004 8:30 AM CDT [id number] Rash persists, is better with steriods and benadryl, but has become more significant on chest and neck Will get Derm consult leon 12/04/03, follow up cyst on ovarary, will RTC for another US, s Source: [facility] Document Id: [id number] Electronically signed by Conversion, [facility] Review Coordinator [id number] at 04/04/2017 7:00 PM CDT documented in this encounter Plan of Treatment Not on filedocumented as of this encounter Visit Diagnoses Not on filedocumented in this encounter
--- OUTSIDE RECORDS SUMMARY | 2022-09-15 10:27 | XMS_ITS | Encounter Summary ---
:1975 [address] [facility] Address [address] [place] [address] Care Team Providers Name Role Phone Needs Pcp, Assignment Primary Care Provider Reason for Visit Reason Comments Follow-up occipital pain Encounter Details Date Type Department Care Team Description 09/01/2020 Telemedicine [facility] Barbara Lindsay APRN, ASSIGNMENT OFFICER [address] [facility] [place] [address] Spondylosis of cervical region without m yelopathy or radiculopathy (Primary Dx); [address] [facility] [address], [facility] Rad Rn Occipital neuralgia of left side [place], [place] [address] Social History Tobacco Use Types Packs/Day Years Used Date Smoking Tobacco: Never Smokeless Tobacco: Never Alcohol Use Standard Drinks/Week Comments Yes 0 (1 standard drink = 0.6 oz pure alcoho l) rarely Sex Assigned at Date Recorded Not on file documented as of this encounter Progress Notes Barbara Lindsay APRN, ASSIGNMENT OFFICER - 09/01/2020 8:40 AM CST Subjective: Thank [...] followup.Today's appointment was conducted via video using [employer] secondary to the Covid-19 pandemic. Vivek is well known to Dr. Aparicio who has been treating her occipital neuralgia since 2016. From his most recent video visit with her in January 2020 ??She would like to get another opinion at the [facility]. This is a reasonable request and I [...] benefit. She recently requested a referral to [facility] for her occipital nerve decompression surgery. She called requesting a refill of her Felch and since she had not been seen fora while was scheduled for a clinic visit. She indicates that a few months back she decided to stop all of her daily medications because she was not feeling like herself. She requests that she have something on hand for very severe pain episodes. She uses Felch extremely sparingly and has only had 2 prescriptions for this medication in 2020 for a total quantity of around 30 tablets. GARDENING SUPERVISOR reviewed. Since we last met she had [...] 1. Chronic occipital neuralgia/occipital headache-pending consult with [facility] to discuss occipital nerve decompression surgery, previously discussed this with Dr. Aparicio. Though she has had some pain relief with medication she does not want to take ongoing daily meds and is looking for more permanent solution. Plan: 1. Investigations: none 2. Consults: Pending consult at [facility], see HPI 3. Interventions:none recommended today 4. Medications: A small amount of Felch was given to her today to use [...] health approaches 7. Follow Up: as needed SOFTWARE ARCHITECT documented in this encounter Plan of Treatment Not on filedocumented as of this encounter Visit Diagnoses Diagnosis Spondylosis of cervical region without m yelopathy or radiculopathy (HRC) - Primary Cervical spondylosis without myelopathy Occipital neuralgia of left side documented in this encounter Care Teams Graduate Rn Relationship Specialty Start Date End Date Needs Pcp, Assignment PCP - General 04/24/14 [place] [address] documented as of this encounter
--- OUTSIDE RECORDS SUMMARY | 2022-09-15 10:27 | XMS_ITS | Encounter Summary ---
:1975 Author Organization [employer] Address [address], [place] [address] Care Team Providers Name Role Phone Needs Pcp, Assignment Primary Care Provider Reason for Visit Reason Onset Date Comments Refill 07/21/2020 Refill 07/28/2020 Encounter Details Date Type Department Care Team Description 07/21/2020 Refill [facility] Kaylah Morgan RN Refill; Refill 8100 [place], [place] [address] Social History Tobacco Use Types [...] filedocumented in this encounter Care Teams Manager Editorial Relationship Specialty Start Date End Date Needs Pcp, Assignment PCP - General 04/24/14 [place] [address] documented as of this encounter
--- OUTSIDE RECORDS SUMMARY | 2022-09-15 10:27 | XMS_ITS | Encounter Summary ---
:1975 Author Organization [facility] Address [address] [place] [address] Care Team Providers Name Role Phone Unavailable Primary Care Provider Unavailable Encounter Details Date Type Department Care Team Description 06/08/2004 Hospital En[facility] Tomas Johnson M.D. [address] [place] [phone] (Wo rk) Social History Tobacco [...] you attend caodaism or Patient refused 2021 denominational services? Do [...] Evans M.D. - 06/08/2004 2:30 PM CDT [id number] leon 12/04/04, is SOB,heart is beating heavy,heaviness in abdomin, tires easily uterus is not tender Vivek describes signs and sx of hyperventilation. She is advised about this and the normal physiology that is happening. She is advised about what she can do. She will call if other concerns. wds Source: [facility] RWHXTRANSXRTFSYS Document Id: [id number] documented in this encounter Plan of Treatment Not on filedocumented as of this encounter Visit Diagnoses Not on filedocumented in this encounter
--- OUTSIDE RECORDS SUMMARY | 2022-09-15 10:27 | XMS_ITS | Encounter Summary ---
:1975 Author Organization [facility] Address [address] [place] [address] Care Team Providers Name Role Phone Unavailable Primary Care Provider Unavailable Encounter Details Date Type Department Care Team Description 06/19/2004 Hospital [facility] Ameya Haji M.D. [address] [place], [place] [phone] (Wo rk) Social History [...] you attend yazidi or Patient refused 2021 amish services? Do [...] Redd L.P.N. - 06/19/2004 2:00 PM CDT [id number] leon 12/04/03,declines to haver triple test, has been having more headaches Source: [facility] RWHXTRANSXRTFSYS Document Id: [id number] Electronically signed by Conversion, [facility] Moving Picture Operator [id number] at 04/04/2017 11:07 PM CDT documented in this encounter Plan of Treatment Not on filedocumented as of this encounter Visit Diagnoses Not on filedocumented in this encounter
--- OUTSIDE RECORDS SUMMARY | 2022-09-15 10:27 | XMS_ITS | Encounter Summary ---
:1975 Author Organization [facility] Address [address] [place] [address] Care Team Providers Name Role Phone Needs Pcp, Assignment Primary Care Provider Reason for Referral Consult/Transfer Care (Routine) - Closed Specialty Diagnoses / Procedures Referred By Contact Refer red To Contact Diagnoses 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) Occipital neuralgia of left side Barbara Lindsay APRN, CNP [address] [place] [address] 1 Referral ID Status Reason Start Date Expiration Date Visits Requ ested Visits Authorized [id number] Closed 01/19/2021 04/20/2022 1 1 Scheduling Instructions Your provider has recommended an appoint ment with [facility] [place]. You may call [phone] to schedule your appoi ntment. We suggest you call your health insurance company about your coverage an d benefits for this appointment. Reason for Visit Reason Comments Follow-up neck pain Encounter Details Date Type Department Care Team Description 01/19/2021 Telemedicine [facility] Barbara Lindsay, Spondylosis of cervical lisa on without myelopathy or radiculopathy (Primary Dx); [address] [facility] GREGOR BENJAMIN Occipital neuralgia of left side [place], [place] [address] [place] [address] Geovani carballo [address] [facility] [place] [phone] (Wo rk) Social History Tobacco Use Types [...] documented in this encounter Patient Instructions Patient InstructionsBarbara Lindsay APRN, GREGOR - 01/19/2021 8:40 AM CDT 1. Investigations: none 2. Consults: None 3. Interventions: I recommended she have occipital nerve blocks/TPI with Dr. Aparicio to help break this cycle of pain. These have provided some temporizing in the past. 4. Medications: A small amount of [place] was given to her today to use for severe pain episodes. She uses with this very sparingly and has had only 3 prescriptions in small quantities over the past year. BOX PRESS OPERATOR reviewed- #14 [place] prescribed on 12/23/20by Dr. Aparicio. Renewed RX [...] this encounter Progress Notes Barbara Lindsay APRN, RGEGOR - 01/19/2021 8:40 AM CDT Subjective: Thank [...] followup.Today's appointment was conducted via video using [employer] secondary to the Covid-19 pandemic. Vivek is [...] benefit. She recently requested a referral to [facility] for her occipital nerve decompression surgery, however it was denied by her insurance. She found a new local physicians- Dr. Jesus Welsh in [facility], who performed occipital nerve decompression - however he does not take ins urance. She is hopeful that since she was given PA by CAROLYN for this procedure he would consider taking [...] and I can't hide it. She uses [place] extremely sparingly and has only had 2 prescriptions for this medication in 2019 for a total quantity of around 30 tablets. One new RX in December for #14. BOX PRESS OPERATOR reviewed.She requests a refill of [place] She had many visits with Viky Fuentes [...] past. 4. Medications: A small amount of [place] was given to her today to use for severe pain episodes. She uses with this very sparingly and has had only 3 prescriptions in small quantities over the past year. BOX PRESS OPERATOR reviewed- #14 [place] prescribed on 12/23/20by Dr. Aparicio. Renewed RX [...] side documented in this encounter Care Teams Educational Sign Language Interpreter Relationship Specialty Start Date End Date Needs Pcp, Assignment PCP - General 04/24/14 [place] [address] documented as of this encounter
--- OUTSIDE RECORDS SUMMARY | 2022-09-15 10:27 | XMS_ITS | Encounter Summary ---
:1975 Author Organization [facility] Address [address] [place] [address] Care Team Providers Name Role Phone Unavailable Primary Care Provider Unavailable Encounter Details Date Type Department Care Team Description 07/07/2004 Hospital Encounter [facility]X [facility] Tomas Johnson M.D. [address] [place] [phone] (Wo rk) Social History Tobacco [...] you attend pentecostalism or Patient refused 2021 mosque services? Do [...] Provider Ser - 07/07/2004 12:00 AM CDT [id number] Addended by: PANFILO FIELDS on: 07/07/2004,5:19 PM Comment: tried to call pt at home, that number is no longer valid and she doesn't work at the [employer] either, we have no samples of celexaModules accepted: Progress Notes>> PANFILO Gamez Jul 07, 2004 10:37 AM>> CALL RECEIVED. Contact: Source: [facility] RWHXTRANSXSYS Document Id: [id number] documented in this encounter Plan of Treatment Not on filedocumented as of this encounter Visit Diagnoses Not on filedocumented in this encounter
--- OUTSIDE RECORDS SUMMARY | 2022-09-15 10:27 | XMS_ITS | Encounter Summary ---
:1975 Author Organization [facility] Address [address] [place] [address] Care Team Providers Name Role Phone Unavailable Primary Care Provider Unavailable Encounter Details Date Type Department Care Team Description 04/06/2004 Hospital Encounter HX [facility] Cris Brar, R.N. [address] [place], [place] [phone] Social History Tobacco Use [...] you attend spiritism or Patient refused 2021 islam services? Do [...]
--- OUTSIDE RECORDS SUMMARY | 2022-09-15 10:27 | XMS_ITS | Encounter Summary ---
:1975 Author Organization [facility] Address [address] [facility] [place] [address] Care Team Providers Name Role Phone Needs Pcp, Assignment Primary Care Provider Reason for Visit Reason Comments Follow-up neck pain Encounter Details Date Type Department Care Team Description 02/09/2021 Telemedicine [facility] Barbara Lindsay, Occipital neuralgia of left side (Primary Dx); [address] [facility] GREGOR BENJAMIN Occipital headache [place], [place] [address] 8100 [facility] [phone] [place] [address] (Wo rk) Social History Tobacco Use Types [...] this encounter Progress Notes Barbara Lindsay, SOURAV, GREGOR - 02/09/2021 8:00 AM CDT Subjective: Thank [...] followup.Today's appointment was conducted via video using [employer] secondary to the Covid-19 pandemic. The patient is in [place]. Vivek is well known to Dr. Aparicio [...] She is hoping that a vacation to [place] will help ease her symptoms. She was told by Dr. Welsh that she was not a good candidate for occipital decompression. She is feeling very down due to not having that option locally. She believes there is a possibility of filing an appeal to see the [facility] physician who performs this surgery, so it [...] To review, she had many visits with Viky Fuentes [...] occipital nerve decompression with clarisa at the [facility]. Plan: 1. Investigations: none 2. Consults: None 3. Interventions: I recommended she have occipital nerve blocks/TPI with Dr. Aparicio to help break this cycle of pain. These have provided some temporizing in the past. Peripheral nerve stimulation may be an option (outside of [facility]). 4. Medications: A small amount of [place] was given to her last week to [...] Headache documented in this encounter Care Teams Client Development Director Relationship Specialty Start Date End Date Needs Pcp, Assignment PCP - General 04/24/14 [place] [address] documented as of this encounter
--- OUTSIDE RECORDS SUMMARY | 2022-09-15 10:27 | XMS_ITS | Encounter Summary ---
:1975 Author Organization [facility] Address [address], [place] [address] Care Team Providers Name Role Phone Needs Pcp, Assignment Primary Care Provider Reason for Visit Reason Onset Date Comments Refill 05/20/2020 Encounter Details Date Type Department Care Team Description 05/20/2020 Refill [facility] Dakota Aparicio MD Refill [address] [address] 1 [place] [address] [phone] (Wo rk) Social History Tobacco Use Types Packs/Day Years Used Date Smoking Tobacco: Never Smokeless Tobacco: Never Alcohol Use Standard Drinks/Week Comments Yes 0 (1 standard drink = 0.6 oz pure alcoho l) rarely Sex Assigned at Date Recorded Not on file documented as of this encounter Nursing Notes Juan Alberto Bermudez RN - 05/20/2020 1:47 PM CDT Received fax from [employer] for topamax refill, called patient as her med list says she doesn't take it since 02/2020. Verified with patient, patient doesn't take this medication anymore and doesn't needany refill. documented in this encounter Plan of Treatment Not on filedocumented as of this encounter Visit Diagnoses Not on filedocumented in this encounter Care Teams Wire Insulator Relationship Specialty Start Date End Date Needs Pcp, Assignment PCP - General 04/24/14 [place] [address] documented as of this encounter
--- OUTSIDE RECORDS SUMMARY | 2022-09-15 10:27 | XMS_ITS | Encounter Summary ---
:1975 Author Organization [facility] Address [address] [place] [address] Care Team Providers Name Role Phone Needs Pcp, Assignment Primary Care Provider Reason for Visit Reason Onset Date Comments Refill 05/12/2020 Encounter Details Date Type Department Care Team Description 05/12/2020 Refill [facility] Lila Garcia, RN Refill [address] [place], [place] [address] Social History Tobacco Use Types [...] on filedocumented in this encounter Care Teams Cigar Packer And Grader Relationship Specialty Start Date End Date Needs Pcp, Assignment PCP - General 04/24/14 [facility] [place] [address] documented as of this encounter
--- OUTSIDE RECORDS SUMMARY | 2022-09-15 10:27 | XMS_ITS | Encounter Summary ---
:1975 Author Organization [facility] Address [address] [place] [address] Care Team Providers Name Role Phone Unavailable Primary Care Provider Unavailable Encounter Details Date Type Department Care Team Description 07/17/2004 Hospital Encounter HX NO MAPPING Brittany Stanley M.D. [address] [place] [phone] (Wo rk) Social History Tobacco [...] you attend anabaptism or Patient refused 2021 pentecostalism services? Do [...]
--- OUTSIDE RECORDS SUMMARY | 2022-09-15 10:27 | XMS_ITS | Encounter Summary ---
:1975 Author Organization [facility] Address [address] [place] [address] Care Team Providers Name Role Phone Unavailable Primary Care Provider Unavailable Encounter Details Date Type Department Care Team Description 08/10/2004 Hospital Encounter HX [facility] INTERNMED Gaurav Crane M.D. [address] [place] [phone] (Wo rk) Social History Tobacco [...] you attend anabaptism or Patient refused 2021 buddhism services? Do [...] Provider Ser - 08/10/2004 2:00 PM CDT [id number] Addended by: DORIS ROSA on: 08/11/2004,2:58 PM [...] as Elimite cream or a referral to [facility] for more definitive diagnosis.2. Will discuss this with Dr. Silva Nguyen in [place] to see if the patient can be seen on short notice.3. In the meantime, continue prednisone 40 mg daily but try speeding up the taperi ng to 4 day intervals instead of weekly intervals. Also recommended the patient restart Vistaril at least at bed time to help with her itching at night.Tess Crane M.D./Maria Victoria: 08/10/2004T: 1 CC: Dr. Hutson for review. Source: [facility] RWHXTRANSXSYS Document Id: [id number] documented in this encounter Plan of Treatment Not on filedocumented as of this encounter Visit Diagnoses Not on filedocumented in this encounter
--- OUTSIDE RECORDS SUMMARY | 2022-09-15 10:27 | XMS_ITS | Encounter Summary ---
:1975 Author Organization [facility] Address [address] [place] [address] Care Team Providers Name Role Phone Needs Pcp, Assignment Primary Care Provider Reason for Visit Reason Onset Date Comments Refill 07/28/2020 Encounter Details Date Type Department Care Team Description 07/28/2020 Refill [facility] Lu Campos, RN Refill [address] [place], [place] [address] Social History Tobacco Use Types [...] on filedocumented in this encounter Care Teams Supervising Nurse Relationship Specialty Start Date End Date Needs Pcp, Assignment PCP - General 04/24/14 [facility] [place] [address] documented as of this encounter
--- OUTSIDE RECORDS SUMMARY | 2022-09-15 10:27 | XMS_ITS | Encounter Summary ---
:1975 Author Organization [facility] Address [address] [place] [address] Care Team Providers Name Role Phone Unavailable Primary Care Provider Unavailable Encounter Details Date Type Department Care Team Description 08/03/2004 Hospital Encounter HX [facility] OBGYN Provider, Histor ical Social History [...] you attend temple or Patient refused 2021 mandaen services? Do [...] Provider Ser - 08/03/2004 8:15 AM CDT [id number] systemic rash, referal to family practice, patient was seen in the ER over the weekend, taking prednisone (20mg daily), vicadin for pain [facility] Document Id: [id number] documented in this encounter Plan of Treatment Not on filedocumented as of this encounter Visit Diagnoses Not on filedocumented in this encounter
--- OUTSIDE RECORDS SUMMARY | 2022-09-15 10:27 | XMS_ITS | Encounter Summary ---
:1975 Author Organization [employer] Address [address] [place] [address] Care Team Providers Name Role Phone Needs Pcp, Assignment Primary Care Provider Reason for Visit Reason Comments HEADACHE,MIGRAINE Encounter Details Date Type Department Care Team Description 04/04/2020 Telemedicine [facility] Viky Fuentes Bilat [facility] CENTER MINDA neuralgia (Primary [address] Dx) [place], [place] [address] [place], [place] [phone] (Wo rk) Social History Tobacco Use Types [...] patient: home Time spent on video in mprc-bj-dktn contact with patient: 40 min more than half in counseling. documented in this encounter Plan of Treatment Not on filedocumented as of this encounter Visit Diagnoses Diagnosis Bilateral occipital neuralgia - Primary documented in this encounter Care Teams Cash Applications Analyst Relationship Specialty Start Date End Date Needs Pcp, Assignment PCP - General 04/24/14 [place] [address] documented as of this encounter
--- OUTSIDE RECORDS SUMMARY | 2022-09-15 10:27 | XMS_ITS | Encounter Summary ---
:1975 Author Organization [facility] Address [address] [place] [address] Care Team Providers Name Role Phone Unavailable Primary Care Provider Unavailable Encounter Details Date Type Department Care Team Description 08/03/2004 Hospital Encounter [facility] Robert Hutson M.D. [address] [place] [phone] (Wo rk) Social History Tobacco Use [...] you attend sabianist or Patient refused 2021 mandaen services? Do [...] Provider Ser - 08/03/2004 10:00 AM CDT [id number] S: Vivek complains of moderate rash located [...] or if significant worsening of symptoms. Source: [facility] RWHXTRANSXSYS Document Id: [id number] documented in this encounter Plan of Treatment Not on filedocumented as of this encounter Visit Diagnoses Not on filedocumented in this encounter
--- OUTSIDE RECORDS SUMMARY | 2022-09-15 10:27 | XMS_ITS | Encounter Summary ---
:1975 Author Organization [facility] Address [address] [place] [address] Care Team Providers Name Role Phone Unavailable Primary Care Provider Unavailable Encounter Details Date Type Department Care Team Description 07/21/2004 Hospital Encounter HX [facility] Jessica Corbin M.D. Social History Tobacco [...] you attend religion or Patient refused 2021 mandaeism services? Do [...] Coles M.D. - 07/21/2004 10:45 AM CDT [id number] probable cellulitis below left breast from itching after bug bit. breast exam is otherwise normal. Try OTC Abx cream and if not relsoving with get PO abx. will get follow up [facility] for ovarian cyst. KD Source: [facility] RWMCHXTRANSXRTFSYS Document Id: [id number] Electronically signed by Conversion, [facility] Fur Cutter [id number] at 04/04/2017 7:00 PM CDT documented in this encounter Plan of Treatment Not on filedocumented as of this encounter Visit Diagnoses Not on filedocumented in this encounter
--- OUTSIDE RECORDS SUMMARY | 2022-09-15 10:27 | XMS_ITS | Encounter Summary ---
:1975 Author Organization [facility] Address [address] [place] [address] Care Team Providers Name Role Phone Unavailable Primary Care Provider Unavailable Encounter Details Date Type Department Care Team Description 07/03/2004 Hospital Encounter HX [facility] Tomas Johnson M.D. [address] [place] [phone] (Wo rk) Social History Tobacco [...] you attend muslim or Patient refused 2021 cheondoism services? Do [...] Provider Ser - 07/03/2004 12:00 AM CDT [id number] >> LUIS PORSHCE TueJul 03, 2004 12:21 PM >> CALL RECEIVED. Contact: pt had samples of celexa & is needing more. Checked for samples in clinic but found none. Accepting this Rx will FAX it directly to the pharmacy. Source: [facility] RWHXTRANSXSYS Document Id: [id number] documented in this encounter Plan of Treatment Not on filedocumented as of this encounter Visit Diagnoses Not on filedocumented in this encounter
--- OUTSIDE RECORDS SUMMARY | 2022-09-15 10:27 | XMS_ITS | Encounter Summary ---
:1975 Author Organization [employer] Address [address] [place] [address] Care Team Providers Name Role Phone Needs Pcp, Assignment Primary Care Provider Reason for Visit Reason Comments Pain Encounter Details Date Type Department Care Team Description 04/15/2020 Telemedicine [facility] Viky Fuentes Bilat [facility] MINDA neuralgia (Primary [address] [address] Dx) [place], [place] [address] [place], [place] [phone] (Wo rk) Social History Tobacco Use Types [...] doing daily breath and working with energy CoursePeerer. This has been very helpful. Still on [...] Dakota Aparicio MD 2 mg at 04/28/18 0912 Objective: Physical Exam: Estimated body mass index [...] patient: home Time spent on video in ydik-cw-tnmt contact with patient: 45 min more than half in counseling. documented in this encounter Plan of Treatment Not on filedocumented as of this encounter Visit Diagnoses Diagnosis Bilateral occipital neuralgia - Primary documented in this encounter Care Teams Sfdc Consultant Relationship Specialty Start Date End Date Needs Pcp, Assignment PCP - General 04/24/14 [place] [address] documented as of this encounter
--- OUTSIDE RECORDS SUMMARY | 2022-09-15 10:28 | XMS_ITS | Encounter Summary ---
:1975 Author Organization [email or web address] Address [address] [place] [address] Care Team Providers Name Role Phone Needs Pcp, Assignment Primary Care Provider Reason for Visit Reason Comments Video Visit Encounter Details Date Type Department Care Team Description 03/13/2020 Telemedicine Mayo Avila Occipita l neuralgia, unspecified laterality (Primary Dx); Counseling D, PhD, LP Anxiety about health; [employer] [address] [facility] Spondylosis of cervical region without m yelopathy or radiculopathy; [place] [address] [place], [place] Other specified depressive episodes [id number] (Wo rk) Social History Tobacco Use Types [...] episodes documented in this encounter Care Teams Sky Diver Relationship Specialty Start Date End Date Needs Pcp, Assignment PCP - General 04/24/14 [place], [place] 320756 documented as of this encounter
--- OUTSIDE RECORDS SUMMARY | 2022-09-15 10:28 | XMS_ITS | Encounter Summary ---
:1975 Author [facility] Address [address] [place] [address] Care Team Providers Name Role Phone Needs Pcp, Assignment Primary Care Provider Reason for Visit Reason Comments Follow-up Encounter Details Date Type Department Care Team Description 03/06/2020 Telemedicine Mayo Avila Occipita l neuralgia, unspecified laterality (Primary Dx); Lara Olivo, PhD, LP Anxiety about health; [address] [facility] Spondylosis of cervical region without m yelopathy or radiculopathy; [place] [address] [place], [place] Other specified depressive episodes [address] (Wo [...] PhD, LP FACILITY/DEPT:[facility] [address] [place] [address] Date of Service: 03/06/20 NAME: Vivek Echeverria [...] CONTENT DISCUSSED: Patient attended today's session via [place] [employer]. Patient reported that she has been struggling [...] she was excited for her meeting with Kristian on March 11. Psychologist and patient discussed [...] unspecified laterality M54.81 2. Anxiety about health ([facility]) F41.8 3. 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 Other specified depressive episodes F32.89 [...] of stress handout [facility] documented in this encounter Plan of Treatment Not on filedocumented as of this encounter Visit Diagnoses Diagnosis Occipital neuralgia, unspecified lateral ity - Primary Anxiety about health ([facility]) Spondylosis of cervical region without m yelopathy or radiculopathy ([facility]) Cervical spondylosis without myelopathy Other specified depressive episodes documented in this encounter Care Teams Corporation Lawyer Relationship Specialty Start Date End Date Needs Pcp, Assignment PCP - General 04/24/14 [place] [address] documented as of this encounter
--- OUTSIDE RECORDS SUMMARY | 2022-09-15 10:28 | XMS_ITS | Encounter Summary ---
:1975 Author Organization [facility] Address [address] [place] [address] Care Team Providers Name Role Phone Needs Pcp, Assignment Primary Care Provider Reason for Visit Reason Onset Date Comments No Show 03/20/2020 Encounter Details Date Type Department Care Team Description 03/20/2020 Telemedicine [facility] Viky Fuentes Encou nters for CENTER PA-C administrative purposes [address] [place] [address] (Primary Dx) [place] [address] [phone] Social History Tobacco Use Types Packs/Day Years [...] purpose documented in this encounter Care Teams Driveway Sealer Relationship Specialty Start Date End Date Needs Pcp, Assignment PCP - General 04/24/14 [place], [place] [phone] documented as of this encounter
--- OUTSIDE RECORDS SUMMARY | 2022-09-15 10:28 | XMS_ITS | Encounter Summary ---
:1975 Author [facility] Address [address] [place] [address] Care Team Providers Name Role Phone Needs Pcp, Assignment Primary Care Provider Reason for Referral Consult/Transfer Care (Routine) - Closed Specialty Diagnoses / Procedures Referred By Contact Refer red To Contact Pain Management Diagnoses Occipital neuralgia, unspecified laterality Anxiety about health ([facility]) 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) Other specified depressive episodes Mayo Honeycutt, P[facility]00 [facility] PhD, LP 1972 Belia Espinoza [address] [place] [address] [address] [place], [place] [address] [place] [address] Phone: Referral ID Status Reason Start Date Expiration Date Visits Requ ested Visits Authorized [id number] Closed 03/05/2020 06/04/2021 1 1 Scheduling Instructions Your provider has recommended an appoint ment with [facility]. A gym supervisor will contact you to assist in setting up this appointment. If you have questions about your upcoming visit, you may call [phone]. This recommended service/s may not be covered by your ins urance coverage. To find out your specific benefit coverage, please call the number on your insurance card. Reason for Visit Reason Comments Follow-up Encounter Details Date Type Department Care Team Description 02/28/2020 [facility] Occipita l neuralgia, unspecified laterality (Primary Dx); Counseling Geovani, PhD, LP Anxiety about health; [address] [facility] Spondylosis of cervical region without m yelopathy or radiculopathy; [place] [address] [place], [place] Other specified depressive episodes [id number] (Wo rk) Social History Tobacco Use Types [...] TYPE: Clinic Progress Note for Mental Health ([facility]ly [facility]) PROVIDER: Mayo Honeycutt, PhD, LP FACILITY/DEPT:[facility] [address] [place] [address] Date of Service: 03/05/20 NAME: [...] CONTENT DISCUSSED: Patient attended today's session via [employer]. Patient reported she did not get out [...] her pain, medication, and duration of the brsj-ob-ajej order have significantly decreased her perceived resiliency. Psychologist and patient discussed the importance of setting boundaries, self-care,and relaxation activities. Much time was spent discussing strategies patient can use in the moment to calm herself down and receive respite from child care group leader. Patient and psychologist discussed strategies patient will [...] CONSULT - ADULT 2. Anxiety about health ([facility]) F41.8 PAIN CONSULT - ADULT 3. 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) M47.812 PAIN CONSULT - ADULT 4. Other [...] plan. Pain/Illness Behaviors: None observed Extended time (35281) was required for today???s session due to [...] episodes documented in this encounter Care Teams Lining Presser Relationship Specialty Start Date End Date Needs Pcp, Assignment PCP - General 04/24/14 [place] [address] documented as of this encounter
--- OUTSIDE RECORDS SUMMARY | 2022-09-15 10:28 | XMS_ITS | Encounter Summary ---
:1975 Author Organization [employer] Address [address] [address] Care Team Providers Name Role Phone Needs Pcp, Assignment Primary Care Provider Reason for Referral Consult/Transfer Care (Routine) - Closed Specialty Diagnoses / Procedures Referred By Contact Refer red To Contact Diagnoses 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) Occipital neuralgia of left side Occipital headache Dakota Aparicio MD [address] [place] [address] Referral ID Status Reason Start Date Expiration Date Visits Requ ested Visits Authorized [id number] Closed 02/12/2020 08/10/2020 1 1 Scheduling Instructions [...] Telemedicine [facility] Dakota Aparicio MD [address] [place] [address] Spondylosis of cervical region without m yelopathy or radiculopathy (Primary Dx); [address], [address] Occipital neuralgia of left side; [place], [place] Occipital he adache [address] Social History Tobacco Use Types Packs/Day Years [...] from the original note were not included. PROCUREMENT ASSISTANT for follow up Dakota Aparicio MD - 02/12/2020 1:00 PM CDT Interventional Pain Follow-up Appointment Subjective: Vivek Echeverria is a 44 y.o. year-old female who I am calling for video follow- up. She continues tohave ongoing left sided occipital pain. She never ended up getting the procedure done in [place]. No arm pain. She had been on medications in the past, but stopped them because she didn't like the side effects. When she takes the [place], she gets relief for the remainder of the day; the pain goes from a 10/10 to a 4/10. Medications: Tizanidine [place] Topamax 25mg - started 2 weeks ago. [...] of cervical region without myelopathy or radiculopathy ([facility]) M47.812 2. Occipital neuralgia of left [...] like to get another opinion at the [facility]. This is a reasonable request and I [...] minutes including more than 50% time video rdwk-ld-hxve time counseling her about her diagnosis and [...] Headache documented in this encounter Care Teams Meat Passer Relationship Specialty Start Date End Date Needs Pcp, Assignment PCP - General 04/24/14 [place] [address] documented as of this encounter
--- OUTSIDE RECORDS SUMMARY | 2022-09-15 10:28 | XMS_ITS | Encounter Summary ---
:1975 Author Organization [facility] Address [address] [place] [address] Care Team Providers Name Role Phone Needs Pcp, Assignment Primary Care Provider Reason for Visit Reason Comments Intake Pain Clinic Intake Encounter Details Date Type Department Care Team Description 03/06/2020 Notes/Orders [facility] [address] Pain Andreia Iverson, RN Clinic [address] [place] [address] Social History Tobacco Use Types Packs/Day Years [...] ??? Medications the patient has tried: Duloxetine, [place] 5-325mg BID PRN, LDN 4.5mg, tizanidine ??? [...] on filedocumented in this encounter Care Teams Software Integration Developer Relationship Specialty Start Date End Date Needs Pcp, Assignment PCP - General 04/24/14 [place] [address] documented as of this encounter
--- OUTSIDE RECORDS SUMMARY | 2022-09-15 10:28 | XMS_ITS | Encounter Summary ---
:1975 Author Organization [facility] Address [address] [place] [address] Care Team Providers Name Role Phone Needs Pcp, Assignment Primary Care Provider Reason for Visit Reason Comments Follow-up Encounter Details Date Type Department Care Team Description 02/14/2020 Telemedicine [facility] Mayo Honeycutt Occipita l neuralgia, unspecified laterality (Primary Dx); Lara Olivo, PhD, LP Spondylosis of cervical region without m yelopathy or radiculopathy; [address] [facility] Anxiety about health; [place] [address] [place], [place] Other specified depressive episodes [address] (Wo [...] 1:00 PM CDT Outpatient Therapy Initial Intake [address] 02/17/2020 IDENTIFYING DATA: Ms. Echeverria is a 44 y.o. year-old, Single female of descent. The patientreported that this background does not affect her participation or potential benefit from therapy. REFERRAL INFORMATION/REASON FOR VISIT: Vivek was seen for a psychological evaluation at [facility]. The patient was referred by [...] Time: 2:00 p.m. Time Spent: 60 minutes fomr-ex-tqro clinical interview. The Adult Diagnostic Assessment form [...] pain worse. ?? 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 Patient is able to contract for safety. [...] Dakota Aparicio MD 2 mg at 04/28/18 2792 No Known Allergies Family Medical/Psychiatric History: Family History Problem Relation Age of Onset ??? Hypertension Father Sleep: frequent nocturnal awakenings, difficulty falling asleep, road oiler awakening and tired all the time Habits: [...] The patient was born and raised in [place]. The patient is the only child of [...] desire to get , or continue the [facility] much longer. The patient has 2 daughters children. In addition to family, Ms. Echeverria has several close friends. The patient reported that She Does not use supports effectively. Spiritual/Anabaptism Beliefs: Denied Educational/Occupational History: Highest degree completed, [...] of cervical region without myelopathy or radiculopathy ([facility]) M47.812 3. Anxiety about health ([facility]) F41.8 4. Other specified depressive episodes [...] Patient is currently taking Cymbalta, Topamax, and [place], but is being tapered off of opioids [...] but also wants referrals to [facility]. . Vivek's chronic pain has negatively impacted [...] for referral from Ney Aparicio MD for [facility] Mayo Honeycutt, PhD, LP [facility] Pain Psychologist Dictation Disclaimer: This note has been completed with voice-recognition dictation software. Typographical errors may occur. Please contact this provider via [employer] staff message if you note any errors requiring clarification. documented in this encounter Plan of Treatment Not on filedocumented as of this encounter Visit Diagnoses Diagnosis Occipital neuralgia, unspecified lateral ity - Primary Spondylosis of cervical region without m yelopathy or radiculopathy ([facility]) Cervical spondylosis without myelopathy Anxiety about health ([facility]) Other specified depressive episodes documented in this encounter Care Teams Channel Opener Relationship Specialty Start Date End Date Needs Pcp, Assignment PCP - General 04/24/14 [place] [address] documented as of this encounter
--- OUTSIDE RECORDS SUMMARY | 2022-09-15 10:28 | XMS_ITS | Encounter Summary ---
:1975 Author Organization [facility] Address [address] [place] [address] Care Team Providers Name Role Phone Needs Pcp, Assignment Primary Care Provider Reason for Visit Reason Comments Follow-up Encounter Details Date Type Department Care Team Description 02/21/2020 Telemedicine Mayo Avila Occipita l neuralgia, unspecified laterality (Primary Dx); Lara Olivo, PhD, Anxiety about health; [address] [facility] Spondylosis of cervical region without m yelopathy or radiculopathy; [place] [address] [place], [place] Other specified depressive episodes [address] (Wo [...] PhD, LP FACILITY/DEPT:[facility] [address] [place] [address] Date of Service: 02/22/20 NAME: Vivek Echeverria [...] episodes documented in this encounter Care Teams C Java Developer Relationship Specialty Start Date End Date Needs Pcp, Assignment PCP - General 04/24/14 [place] [address] documented as of this encounter
--- OUTSIDE RECORDS SUMMARY | 2022-09-15 10:28 | XMS_ITS | Encounter Summary ---
:1975 Author Organization [facility] Address [address] [place] [address] Care Team Providers Name Role Phone Needs [...] Honeycutt, [facility] PhD, LP [address] [address] Cruz. [place], [place] [address] [place] [address] Phone: Referral ID Status Reason Start Date Expiration Date Visits Requ ested Visits Authorized [id number] Closed 03/05/2020 06/04/2021 1 1 Encounter Details Date Type Department Care Team Description 03/11/2020 Telemedicine [facility] 3800 Lucina Townsend Bi lateral occipital neuralgia (Primary Dx); Pain Clinic CASINO HOST, YACHT RIGGER Other complicated headache syndrome; [address] [place] [address] [place] Med ical [place] [address] [phone] (Wo rk) Social History Tobacco Use Types [...] PM CDT When you register with the [facility], you will receive information about the [...] to their insurance: Yes Lucina Townsend APRN, YACHT RIGGER - 03/11/2020 1:00 PM CDT PM&R/ Interventional Pain Management Outpatient New Patient Evaluation: Referring provider: Assignment Needs PCP Chief complaint: PAIN, HEAD (Occipital pain); CONSULT; and Video Visit HPI: Vivek Echeverria is a 44 y.o. female seen 03/11/2020 for evaluation for chronic pain. Symptoms: Pain is located: occipital region Pain severity: 06/09 Onset of pain: about 5 years ago, [...] Has been working with Dr Aparicio at [facility]. She has done several injections and other therapies that have not been helpful with her pain. She had been evaluated by a physician in [place] and had been recommended occupational nerve release. 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 CC: History [...] seen in clinic in the future. Lucina Towsnend APRN, YACHT RIGGER Pain Management Vivek Echeverria is a 44 [...] intolerable side effects. I am not the educational speech language clinician (but am the designated tube drawer for pain clinic) responsible for thecare and [...] effects. 2. Is the patient able to car pick up driver and administer the cannabis medication by themselves? Yes ?? This patient will be certified on the [place] state Registry as having a qualifying condition. Informed the patient when they register with the state they will receive information about the risks and benefits of medical marijuana and information about any local support groups that may be helpful to them. If they do not get such information from the [facility], they should let me know. ?? The patient was given and signed the Ten[place] warning. She agrees that the certifying clinician may give information about her care to the [facility]. ?? The patient gave their preferred email address for communication with the [facility]. (If they do not have a functioning email address, they were given the phone number of the [facility] Department of [employer] so that they may register using a paper process.) The patient will receive ongoing care for the qualifying condition from Lucina. She should return to clinic for a follow-up visit in 6 and 12 months. Tennessen Warning (Link below to print document, if needed) [email or web address]/topics/cannabis/patients/patient_[email or web address]_f orm.pdf Link to [facility] Website (if needed) to register as a certifying clinician OR to certify a patient [email or web address] documented in this encounter Plan of Treatment Not on filedocumented as of this encounter Visit Diagnoses Diagnosis Bilateral occipital neuralgia - Primary Other complicated headache syndrome Medical marijuana use documented in this encounter Care Teams Impress Associate Relationship Specialty Start Date End Date Needs Pcp, Assignment PCP - General 04/24/14 [place] [address] documented as of this encounter
--- OUTSIDE RECORDS SUMMARY | 2022-09-15 10:28 | XMS_ITS | Encounter Summary ---
:1975 Author Organization [facility] Address [address] [place] [address] Care Team Providers Name Role Phone Needs Pcp, Assignment Primary Care Provider Reason for Visit Reason Onset Date Comments Refill 02/11/2020 Refill 02/12/2020 Encounter Details Date Type Department Care Team Description 02/11/2020 Refill [facility] Dakota Aparicio MD Refill; Refill [address] [address] [address] [place] [address] [phone] (Wo rk) Social History Tobacco Use Types Packs/Day Years Used Date Smoking Tobacco: Never Smokeless Tobacco: Never Alcohol Use Standard Drinks/Week Comments Yes 0 (1 standard drink = 0.6 oz pure alcoho l) rarely Sex Assigned at Date Recorded Not on file documented as of this encounter Nursing Notes Leyla Mendez RN - 02/12/2020 11:26 AM CDT Informed patient [place] refill refused by Dr. Aparicio as she needs an appointment. Transferred to maintenance scheduler for phone visit scheduling Leyla Mendez RN - 02/11/2020 11:07 AM CDT Images from the original note were not included. CONTINUOUS DRIER HELPER for refill: documented in this encounter Plan of Treatment Not on filedocumented as of this encounter Visit Diagnoses Diagnosis Spondylosis of cervical region without m yelopathy or radiculopathy (HRC) Cervical spondylosis without myelopathy Occipital neuralgia of left side documented in this encounter Care Teams Stage Set Designer Relationship Specialty Start Date End Date Needs Pcp, Assignment PCP - General 04/24/14 [place] [address] documented as of this encounter
--- OUTSIDE RECORDS SUMMARY | 2022-09-15 10:28 | XMS_ITS | Encounter Summary ---
:1975 Author Organization [facility] Address [address], [place] [address] Care Team Providers Name Role Phone Needs Pcp, Assignment Primary Care Provider Reason for Visit Reason Comments QUESTIONS, GENERAL Encounter Details Date Type Department Care Team Description 02/14/2020 Telephone [facility] Cristina Gallegos, QUESTIONS, GENERAL [address] [place], [place] [address] Social History Tobacco Use Types [...] she would be getting a refill of [place]. Advised pt Dr. Aparicio's plan did not include refill of [place], and the Naltrexone was corrected and [facility] fax. Pt had no further questions. documented in this encounter Plan of Treatment Not on filedocumented as of this encounter Visit Diagnoses Not on filedocumented in this encounter Care Teams Pipe Processor Relationship Specialty Start Date End Date Needs Pcp, Assignment PCP - General 04/24/14 [place] [address] documented as of this encounter
--- OUTSIDE RECORDS SUMMARY | 2022-09-15 10:28 | XMS_ITS | Encounter Summary ---
:1975 Author Organization [facility] Address [address] [place] [address] Care Team Providers Name Role Phone Needs Pcp, Assignment Primary Care Provider Reason for Visit Reason Onset Date Comments Refill 02/13/2020 Encounter Details Date Type Department Care Team Description 02/13/2020 Refill [facility] Leyla Mendez RN Refill [address] [place], [place] [address] Social History Tobacco Use Types [...] on filedocumented in this encounter Care Teams Tool Designer Apprentice Relationship Specialty Start Date End Date Needs Pcp, Assignment PCP - General 04/24/14 [place] [address] documented as of this encounter
--- OUTSIDE RECORDS SUMMARY | 2022-09-15 10:28 | XMS_ITS | Encounter Summary ---
:1975 Author Organization [facility] Address [address] [place] [address] Care Team Providers Name Role Phone Needs Pcp, Assignment Primary Care Provider Reason for Visit Reason Comments HEADACHE--ED Consult/Transfer Care (Routine) - Closed Specialty Diagnoses / Procedures Referred By Contact Refer red To Contact Diagnoses Occipital neuralgia of left side Rupert Luu, PIZZA BAKER, FOOD TRAY ASSEMBLER [address] [facility] [place] [address] Referral ID Status Reason Start Date Expiration Date Visits Requ ested Visits Authorized [id number] Closed 01/23/2020 04/23/2021 1 1 Encounter Details Date Type Department Care Team Description 03/13/2020 Telemedicine [facility] Viky Fuentes Bilat eral occipital CENTER MINDA neuralgia (Primary [address] [facility] [address] [facility] Dx) [place], [place] [address] [employer], [place] [phone] (Wo rk) Social History Tobacco Use Types Packs/Day Years Used Date Smoking Tobacco: Never Smokeless Tobacco: Never Alcohol Use Standard Drinks/Week Comments Yes 0 (1 standard drink = 0.6 oz pure alcoho l) rarely Sex Assigned at Date Recorded Not on file documented as of this encounter Progress Notes Viky Fuentes PA-C - 03/13/2020 12:00 PM CDT NAME: VIVEK MORALES MR#: [id number] CSN: [id number] AUTHENTICATING CLINICIAN: JORGE A Pruett CONFIRM #: [id number] LOC: 711 CLINIC PROGRESS NOTE DATE OF [...] counseling. CC: RUPERT LUU APRN, CN [address] [facility] [place] [address] NOLVIA:MEDQ C: R:03/13/20 15:36 CONFIRM#:[id number] documented in this encounter Plan of Treatment Scheduled Referrals Name Type Priority Associated Diagnoses Order [facility] Referral Routine Occipital neuralgia of Ordered: 01/23/2020 CONSULT left side documented as of this encounter Visit Diagnoses Diagnosis Bilateral occipital neuralgia - Primary documented in this encounter Care Teams Repairer Finished Metal Relationship Specialty Start Date End Date Needs Pcp, Assignment PCP - General 04/24/14 [facility] [place] [address] documented as of this encounter
--- OUTSIDE RECORDS SUMMARY | 2022-09-15 10:29 | XMS_ITS | Encounter Summary ---
:1975 Author Organization [facility] Address [address] [place] [address] Care Team Providers Name Role Phone Needs Pcp, Assignment Primary Care Provider Reason for Visit Reason Onset Date Comments Refill 08/29/2019 Encounter Details Date Type Department Care Team Description 08/29/2019 Refill [facility] Cristina Gallegos, [facility] Refill [address] [place], [place] [address] Social History Tobacco Use Types [...] on filedocumented in this encounter Care Teams Qualification Engineer Relationship Specialty Start Date End Date Needs Pcp, Assignment PCP - General 04/24/14 [facility] [place] [address] documented as of this encounter
--- OUTSIDE RECORDS SUMMARY | 2022-09-15 10:29 | XMS_ITS | Encounter Summary ---
:1975 Author Organization [facility] Address [address] [place] [address] Care Team Providers Name Role Phone Needs Pcp, Assignment Primary Care Provider Reason for Visit Reason Onset Date Comments ERRONEOUS ENTRY 12/10/2019 Encounter Details Date Type Department Care Team Description 12/10/2019 Refill [facility] Marlen Guillen RN ERRONEOUS ENTRY [address] [place], [place] [address] Social History Tobacco Use Types [...] myelopathy documented in this encounter Care Teams Retina Subspecialist Relationship Specialty Start Date End Date Needs Pcp, Assignment PCP - General 04/24/14 [place] [address] documented as of this encounter
--- OUTSIDE RECORDS SUMMARY | 2022-09-15 10:29 | XMS_ITS | Encounter Summary ---
:1975 Author [facility] Address [address] [place] [address] Care Team Providers Name Role Phone Needs Pcp, Assignment Primary Care Provider Reason for Visit Reason Onset Date Comments Refill 04/25/2019 Refill 04/30/2019 Encounter Details Date Type Department Care Team Description 04/25/2019 Refill [facility] Lu Campos, RN Refill; Refill [address] [place], [place] [address] Social History Tobacco Use Types [...] on filedocumented in this encounter Care Teams Salesperson Neckties Relationship Specialty Start Date End Date Needs Pcp, Assignment PCP - General 04/24/14 [place] [address] documented as of this encounter
--- OUTSIDE RECORDS SUMMARY | 2022-09-15 10:29 | XMS_ITS | Encounter Summary ---
:1975 Author Organization [employer] Address [address] [place] [address] Care Team Providers Name Role Phone Needs Pcp, Assignment Primary Care Provider Reason for Visit Reason Comments QUESTIONS, GENERAL Encounter Details Date Type Department Care Team Description 11/26/2019 Telephone [facility] Lu Campos, QUESTIONS, GENERAL [address] [facility] RN [place], [place] [address] Social History Tobacco Use Types [...] to schedule follow up appointment in clinic. ER TENDERS SUPERVISOR Lu Campos RN - 11/26/2019 11:29 AM [...] for nausea. Patientreports plans for surgery in [place] is on hold due to requirements for pre-surgical evaluation with neurologist and pain psychologist. Due to deductible and cost of traveling out of state, unable to proceed at this time. ER TENDERS SUPERVISOR documented in this encounter Plan of Treatment Not on filedocumented as of this encounter Visit Diagnoses Not on filedocumented in this encounter Care Teams Metal Bonding Press Operator Relationship Specialty Start Date End Date Needs Pcp, Assignment PCP - General 04/24/14 [place] [address] documented as of this encounter
--- OUTSIDE RECORDS SUMMARY | 2022-09-15 10:29 | XMS_ITS | Encounter Summary ---
:1975 Author Organization [facility] Address [address] [place] [address] Care Team Providers Name Role Phone Needs Pcp, Assignment Primary Care Provider Encounter Details Date Type Department Care Team Description 10/19/2019 Refill [facility] Cristina Glalegos CMA [address] [place], [place] [address] Social History Tobacco Use Types Packs/Day Years Used Date Smoking Tobacco: Never Smokeless Tobacco: Never Alcohol Use Standard Drinks/Week Comments Yes 0 (1 standard drink = 0.6 oz pure alcoho l) rarely Sex Assigned at Date Recorded Not on file documented as of this encounter Nursing Notes Cristina Gallegos CMA - 10/19/2019 11:09 AM CST Pt called to advise unable to curing pickling packer Hydrocodone RX sent yesterday to [facility]. Called pharmacy to confirm patient did not curing pickling packer prescription as they do not have enough of this item in stock. Patient would like prescription sent to the [facility] on file in [place]. LATION SPRAYER documented in this encounter Plan of Treatment Not on filedocumented as of this encounter Visit Diagnoses Diagnosis Spondylosis of cervical region without m yelopathy or radiculopathy (HRC) Cervical spondylosis without myelopathy Occipital neuralgia of left side documented in this encounter Care Teams Veterinary Technician Instructor Relationship Specialty Start Date End Date Needs Pcp, Assignment PCP - General 04/24/14 [place] [address] documented as of this encounter
--- OUTSIDE RECORDS SUMMARY | 2022-09-15 10:29 | XMS_ITS | Encounter Summary ---
:1975 Author Organization [facility] Address [address] [place] [address] Care Team Providers Name Role Phone Needs Pcp, Assignment Primary Care Provider Reason for Visit Reason Comments ERRONEOUS ENTRY Encounter Details Date Type Department Care Team Description 04/17/2019 Telephone [facility] Marlen Guillen RN ERRONEOUS ENTRY [address] [place], [place] [address] Social History Tobacco Use Types [...] on filedocumented in this encounter Care Teams Lpn Rn Relationship Specialty Start Date End Date Needs Pcp, Assignment PCP - General 04/24/14 [place] [address] documented as of this encounter
--- OUTSIDE RECORDS SUMMARY | 2022-09-15 10:29 | XMS_ITS | Encounter Summary ---
:1975 Author Organization [facility] Address [address], [place] [address] Care Team Providers Name Role Phone Needs Pcp, Assignment Primary Care Provider Reason for Visit Reason Comments Pain Headaches Encounter Details Date Type Department Care Team Description 10/30/2018 Telephone [facility] Lu aCmpos, Pain (Headaches) [address] [facility] RN [place], [place] [address] Social History Tobacco Use Types [...] regarding pain management. Patient stated MD in [place] is suppose to call Dr. Aparicio regarding [...] clinic. Patient advised and transferred to scheduling. NIC SPECIALIST documented in this encounter Plan of Treatment Not on filedocumented as of this encounter Visit Diagnoses Not on filedocumented in this encounter Care Teams Director University Relationship Specialty Start Date End Date Needs Pcp, Assignment PCP - General 04/24/14 [place], [place] [address] documented as of this encounter
--- OUTSIDE RECORDS SUMMARY | 2022-09-15 10:29 | XMS_ITS | Encounter Summary ---
:1975 Author Organization [employer] Address [address] [place] [address] Care Team Providers Name Role Phone Needs Pcp, Assignment Primary Care Provider Reason for Visit Reason Comments Pain Stress ANXIETY DEPRESSION Consult/Transfer Care (Routine) - Closed Specialty Diagnoses / Procedures Referred By Contact Refer red To Contact Diagnoses Occipital neuralgia of left side Barbara Lindsay, GEOPHYSICAL COMPUTER, CHILD AND ADOLESCENT PSYCHIATRIST [address] [facility] [address] [place] [address] Referral ID Status Reason Start Date Expiration Date Visits Requ ested Visits Authorized [id number] Closed 01/23/2020 04/23/2021 1 1 Encounter Details Date Type Department Care Team Description 01/31/2020 Telemedicine [facility] Mayo Honeycutt Occipita l neuralgia, unspecified laterality (Primary Dx); Lara Olivo, PhD, LP Spondylosis of cervical region without m yelopathy or radiculopathy; [address] [facility] Anxiety about health; [place] [address] [place], [place] Other specified depressive episodes [address] (Wo rk) Social History Tobacco Use Types [...] TYPE: Clinic Progress Note for Mental Health ([facility]) PROVIDER: Mayo Honeycutt, PhD, FACILITY/DEPT:[address] [address] Date of Service: 02/03/20 NAME: [...] CONTENT DISCUSSED: Patient attended today's session via FOBO to establish care with pain psychologist. Due [...] make pain worse. 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 Anxiety about health ([facility]) F41.8 4. Other specified depressive episodes [...] Return visit in 1 week(s). Extended time (09915) was required for today???s session due to [...] episodes documented in this encounter Care Teams Contact Center Representative Relationship Specialty Start Date End Date Needs Pcp, Assignment PCP - General 04/24/14 [place] [address] documented as of this encounter
--- OUTSIDE RECORDS SUMMARY | 2022-09-15 10:29 | XMS_ITS | Encounter Summary ---
:1975 Author Organization [facility] Address [address], [place] [address] Care Team Providers Name Role Phone Needs Pcp, Assignment Primary Care Provider Reason for Visit Reason Comments Medication Request Encounter Details Date Type Department Care Team Description 01/21/2020 Telephone [facility] Dakota Aparicio MD Medication Request [address] [address] [place], [place] [phone] (Wo rk) Social History Tobacco Use Types Packs/Day Years Used Date Smoking Tobacco: Never Smokeless Tobacco: Never Alcohol Use Standard Drinks/Week Comments Yes 0 (1 standard drink = 0.6 oz pure alcoho l) rarely Sex Assigned at Date Recorded Not on file documented as of this encounter Nursing Notes Marion Valerio - 01/21/2020 2:08 PM CDT Vivek KEENAN at line requesting [place] refill. Forwarding for nursing staff & Dr. Aparicio. Thanks! documented in this encounter Plan of Treatment Not on filedocumented as of this encounter Visit Diagnoses Not on filedocumented in this encounter Care Teams Pan Shaker Relationship Specialty Start Date End Date Needs Pcp, Assignment PCP - General 04/24/14 [place] [address] documented as of this encounter
--- OUTSIDE RECORDS SUMMARY | 2022-09-15 10:29 | XMS_ITS | Encounter Summary ---
:1975 Author Organization formerly [facility] Address [address] [place] [address] Care Team Providers Name Role Phone Needs Pcp, Assignment Primary Care Provider Reason for Visit Reason Onset Date Comments Refill 06/15/2019 Encounter Details Date Type Department Care Team Description 06/15/2019 Refill [facility] Lu Campos, RN Refill [address] [place], [place] [address] Social History Tobacco Use Types [...] myelopathy documented in this encounter Care Teams Child Care Counselor Relationship Specialty Start Date End Date Needs Pcp, Assignment PCP - General 04/24/14 [place] [address] documented as of this encounter
--- OUTSIDE RECORDS SUMMARY | 2022-09-15 10:29 | XMS_ITS | Encounter Summary ---
:1975 Author Organization [employer] Address [address] [place] [address] Care Team Providers Name Role Phone Needs Pcp, Assignment Primary Care Provider Reason for Visit Reason Comments Follow-up pain Encounter Details Date Type Department Care Team Description 10/02/2019 Office Visit [facility] Dakota Aparicio MD [address] [place] [address] Spondylosis of cervical region without m yelopathy or radiculopathy (Primary Dx); [address] [facility] [address], [facility] Rad Rn Occipital neuralgia of left side; [place], [place] Occipital he adache [address] Social History Tobacco Use Types Packs/Day Years Used Date Smoking Tobacco: Never Smokeless Tobacco: Never Alcohol Use Standard Drinks/Week Comments Yes 0 (1 standard drink = 0.6 oz pure alcoho l) rarely Sex Assigned at Date Recorded Not on file documented as of this encounter Last Filed Vital Signs Vital Sign Reading Time Taken Comments Blood Pressure 140/87 10/02/2019 10:04 AM VAMP STITCHER Pulse 84 10/02/2019 10:04 AM VAMP STITCHER Temperature - - Respiratory Rate 16 10/02/2019 10:04 AM VAMP STITCHER Oxygen Saturation 99% 10/02/2019 10:04 AM VAMP STITCHER Inhaled Oxygen Concentration - - Weight 82.6 kg (182 lb) 10/02/2019 10:04 AM VAMP STITCHER Height - - Body Mass Index 25.38 04/28/2018 9:04 AM CDT documented in this encounter Patient Instructions Patient InstructionsDakota Aparicio MD - 10/02/2019 9:50 AM CST 1. Pain psychology referral 2. Continue with exercises 3. No interventions right now STITCHER documented in this encounter Progress Notes Cristina Gallegos CMA - 10/02/2019 9:50 AM CST Images from the original note were not included. WATCH LEADER for follow up STITCHER Dakota Aparicio MD - 10/02/2019 9:50 AM CST Interventional Pain Follow-up Appointment Subjective: Vivek Echeverria is a 44 y.o. year-old female who is here today for follow-up. She presents with ongoing left sided occipital pain. She stopped all of her medications 4 days ago - the pain didn't change substantially. She has been working with a plastic surgeon in [place] who was going to perform an occipital [...] to pursue the occipital nerve decompression in [place]. I would also recommend that she work [...] interventions right now Dakota Aparicio MD 10/02/2019, STITCHER documented in this encounter Plan of Treatment Not on filedocumented as of this encounter Visit Diagnoses Diagnosis Spondylosis of cervical region without m yelopathy or radiculopathy - Primary Cervical spondylosis without myelopathy Occipital neuralgia of left side Occipital headache Headache documented in this encounter Care Teams Gas Usage Meter Clerk Relationship Specialty Start Date End Date Needs Pcp, Assignment PCP - General 04/24/14 [place] [address] documented as of this encounter
--- OUTSIDE RECORDS SUMMARY | 2022-09-15 10:29 | XMS_ITS | Encounter Summary ---
:1975 Author Organization [email or web address] Address [address] [place] [address] Care Team Providers Name Role Phone Needs Pcp, Assignment Primary Care Provider Reason for Visit Reason Comments Medication Questions Encounter Details Date Type Department Care Team Description 10/17/2019 Telephone [facility] Lu Campos Medication Questions 8[address] [facility] Cecil Govea RN [place], [place] [address] Social History Tobacco Use Types [...] medications. In the interim, she was requesting [facility] to help with the breakthrough pain - risks and side effects were discussed. Did provide #20 tabs. Dakota Aparicio MD 10/18/2019, 4:30 PM NT SERVICE SUPERVISOR Lu Campos RN - 10/17/2019 10:48 AM CST Images from the original note were not included. Patient last seen in [id number] by . Patient phones requesting prescription for norco for complaints of head pain, but states it is not a migraine. Patient reports she had stopped all medications 2 1/2 weeks ago and was doing well, feeling normal, until 4 days ago. Patient does consult with Pain Psych 10-17-19 and surgery is planned in [place] 2019 for occipital nerve decompression. POLE PEELING MACHINE OPERATOR: NT SERVICE SUPERVISOR documented in this encounter Plan of Treatment Not on filedocumented as of this encounter Visit Diagnoses Diagnosis Spondylosis of cervical region without m yelopathy or radiculopathy (HRC) Cervical spondylosis without myelopathy Occipital neuralgia of left side documented in this encounter Care Teams Target Protection Specialist Relationship Specialty Start Date End Date Needs Pcp, Assignment PCP - General 04/24/14 [place] [address] documented as of this encounter
--- OUTSIDE RECORDS SUMMARY | 2022-09-15 10:29 | XMS_ITS | Encounter Summary ---
:1975 Author Organization [facility] Address [address] [place] [address] Care Team Providers Name Role Phone Needs Pcp, Assignment Primary Care Provider Reason for Visit Reason Comments Refill Encounter Details Date Type Department Care Team Description 12/20/2019 Telephone [facility] Lu Campos, RN Refill [address] [place], [place] [address] Social History Tobacco Use Types [...] myelopathy documented in this encounter Care Teams Quality Technician Relationship Specialty Start Date End Date Needs Pcp, Assignment PCP - General 04/24/14 [place] [address] documented as of this encounter
--- OUTSIDE RECORDS SUMMARY | 2022-09-15 10:29 | XMS_ITS | Encounter Summary ---
:1975 Author [facility] Address [address] [place] [address] Care Team Providers Name Role Phone Needs Pcp, Assignment Primary Care Provider Reason for Visit Reason Comments Other Pre Phone encounter Encounter Details Date Type Department Care Team Description 01/23/2020 Telephone [facility] Cristina Gallegos (Pre Phone [address] [facility] ) [place], [place] [address] Social History Tobacco Use Types [...] from the original note were not included. EXHAUST EMISSIONS AUTOMOTIVE TECHNICIAN for phone follow up Cristina Gallegos CMA - 01/23/2020 9:25 AM CDT ----- Message from Barbara Lindsay APRN, CNP sent at 01/23/2020 8:51 AM CDT ----- Regarding: EXHAUST EMISSIONS AUTOMOTIVE TECHNICIAN Is anyone available to post a EXHAUST EMISSIONS AUTOMOTIVE TECHNICIAN on my 9:40 patient today since she is requesting [place] refill? If not, just let me know. I can log in and look at it but not sure how to copy and paste. Thanks documented in this encounter Plan of Treatment Not on filedocumented as of this encounter Visit Diagnoses Not on filedocumented in this encounter Care Teams Kennel Keeper Relationship Specialty Start Date End Date Needs Pcp, Assignment PCP - General 04/24/14 [place] [address] documented as of this encounter
--- OUTSIDE RECORDS SUMMARY | 2022-09-15 10:29 | XMS_ITS | Encounter Summary ---
:1975 Author Organization [facility] Address [address] [place] [address] Care Team Providers Name Role Phone Needs Pcp, Assignment Primary Care Provider Reason for Visit Reason Comments Follow-up Encounter Details Date Type Department Care Team Description 02/07/2020 Telemedicine [facility] Occipita l neuralgia, unspecified laterality (Primary Dx); Lara Olivo, PhD, LP Spondylosis of cervical region without m yelopathy or radiculopathy; [address] [facility] Anxiety about health; [place] [address] [place], [place] Other specified depressive episodes [address] (Wo [...] PhD, LP FACILITY/DEPT:[facility] [address] [place] [address] Date of Service: 02/08/20 NAME: Vivek Echeverria [...] Return visit in 1 week(s). Extended time (83193) was required for today???s session due to [...] episodes documented in this encounter Care Teams Correctional Food Service Supervisor Relationship Specialty Start Date End Date Needs Pcp, Assignment PCP - General 04/24/14 [place] [address] documented as of this encounter
--- OUTSIDE RECORDS SUMMARY | 2022-09-15 10:29 | XMS_ITS | Encounter Summary ---
:1975 Author Organization [facility] Address [address], [place] [address] Care Team Providers Name Role Phone Needs Pcp, Assignment Primary Care Provider Reason for Visit Reason Onset Date Comments Refill 05/14/2019 Encounter Details Date Type Department Care Team Description 05/14/2019 Refill [facility] Kaylah Morgan RN Refill 8[address] [place], [place] [address] Social History Tobacco Use Types [...] myelopathy documented in this encounter Care Teams Precinct Captain Relationship Specialty Start Date End Date Needs Pcp, Assignment PCP - General 04/24/14 [place] [address] documented as of this encounter
--- OUTSIDE RECORDS SUMMARY | 2022-09-15 10:29 | XMS_ITS | Encounter Summary ---
:1975 Author [facility] Address [address] [address] Care Team Providers Name Role Phone Needs Pcp, Assignment Primary Care Provider Reason for Visit Reason Comments Med Request Encounter Details Date Type Department Care Team Description 10/19/2019 Telephone [facility] Cristina Gallegos, Med Request [address] [place], [place] [address] Social History Tobacco Use Types [...] of pocket, no change in prescription required. TRONICS PARTS SALES REPRESENTATIVE documented in this encounter Plan of Treatment Not on filedocumented as of this encounter Visit Diagnoses Diagnosis Spondylosis of cervical region without m yelopathy or radiculopathy (HRC) Cervical spondylosis without myelopathy Occipital neuralgia of left side documented in this encounter Care Teams Supervisor Cutting And Sewing Room Relationship Specialty Start Date End Date Needs Pcp, Assignment PCP - General 04/24/14 [place] [address] documented as of this encounter
--- OUTSIDE RECORDS SUMMARY | 2022-09-15 10:29 | XMS_ITS | Encounter Summary ---
:1975 Author Organization [facility] Address [address] [place] [address] Care Team Providers Name Role Phone Needs Pcp, Assignment Primary Care Provider Reason for Visit Reason Onset Date Comments ERRONEOUS ENTRY 12/13/2018 Encounter Details Date Type Department Care Team Description 12/13/2018 Refill [facility] Lu Campos RN ERRONEOUS ENTRY [address] [place] [address] Social History Tobacco Use Types Packs/Day [...] on filedocumented in this encounter Care Teams It Consultant Relationship Specialty Start Date End Date Needs Pcp, Assignment PCP - General 04/24/14 [facility] [place] [address] documented as of this encounter
--- OUTSIDE RECORDS SUMMARY | 2022-09-15 10:29 | XMS_ITS | Encounter Summary ---
:1975 Author Organization [facility] Address [address] [place] [address] Care Team Providers Name Role Phone Needs Pcp, Assignment Primary Care Provider Reason for Visit Reason Onset Date Comments Refill 04/12/2019 Encounter Details Date Type Department Care Team Description 04/12/2019 Refill [facility] Lu Campos, RN Refill [address] [place], [place] [address] Social History Tobacco Use Types [...] myelopathy documented in this encounter Care Teams Fish Hatchery Worker Relationship Specialty Start Date End Date Needs Pcp, Assignment PCP - General 04/24/14 [place] [address] documented as of this encounter
--- OUTSIDE RECORDS SUMMARY | 2022-09-15 10:29 | XMS_ITS | Encounter Summary ---
:1975 Author Organization [facility] Address [address] [place] [address] Care Team Providers Name Role Phone Needs Pcp, Assignment Primary Care Provider Reason for Visit Reason Onset Date Comments Refill 08/15/2019 Encounter Details Date Type Department Care Team Description 08/15/2019 Refill [facility] Lu Cmapos, RN Refill [address] [place], [place] [address] Social History Tobacco Use Types [...] documented in this encounter Care Teams Quality Improvement Manager Relationship Specialty Start Date End Date Needs Pcp, Assignment PCP - General 04/24/14 [place] [address] documented as of this encounter
--- OUTSIDE RECORDS SUMMARY | 2022-09-15 10:29 | XMS_ITS | Encounter Summary ---
:1975 Author Organization [facility] Address [address] [address] Care Team Providers Name Role Phone Needs Pcp, Assignment Primary Care Provider Reason for Referral Consult/Transfer Care (Routine) - Closed Specialty Diagnoses / Procedures Referred By Contact Refer red To Contact Diagnoses Occipital neuralgia of left side Barbara Lindsay APRN, CNP [address] [facility] [place] [address] [place] [address] Referral ID Status Reason Start Date Expiration Date Visits Requ ested Visits Authorized [id number] Closed 01/23/2020 04/23/2021 1 1 Scheduling Instructions Your provider has recommended an appoint ment with [facility]. You may call [phone] to schedule your appoi ntment. If you do not schedule an appointment within the next 1 to 3 business days, we will call you to help arrange your appointment. We suggest you call your [facility] insurance company about your coverage and benefits for this appointment. Consult/Transfer Care (Routine) - Closed Specialty Diagnoses / Procedures Referred By Contact Refer red To Contact Diagnoses Occipital neuralgia of left side Barbara Lindsay APRN, CNP [address] [facility] [address] [place] [address] Referral ID Status Reason Start Date Expiration Date Visits Requ ested Visits Authorized [id number] Closed 01/23/2020 04/23/2021 1 1 Scheduling Instructions Your provider has recommended an appoint ment with [facility] [place]. You may call [phone] to schedule your appoi ntment. If you do not schedule an appointment within the next 1 to 3 business days, we will call you to help arrange your appointment. We suggest you call your [employer] insurance company about your coverage and benefits for this appointment. Reason for Visit Reason Comments Telephone Call Billing Encounter Details Date Type Department Care Team Description 01/23/2020 Phone Visit [facility] Barbara Lindsay, Spondylosis of cervical lisa on without myelopathy or radiculopathy; [address] [facility] [address] [place] Occipital neuralgia of left side [place], [place] [address] [address] [facility] [phone] [place] [address] (Wo rk) Social History Tobacco Use Types [...] for living well consult. I emailed Viky mcdonald and put in an order for a consult. 2. Referral to Dr. Honeycutt for pain psychology, ordered placed today 3. CURING PRESS OPERATOR reviewed and Cos Cob refill was appropriate. She is using this very sparingly. A quantity of 14 was E prescribed. documented in this encounter Progress Notes Barbara Lindsay APRN, CNP - 01/23/2020 9:40 AM CDT I conducted a scheduled telephone call visit with Vivek mcdonald at her request to discuss ongoing occipital [...] said, she is requesting a refill of Cos Cob which she uses very sparinglyand only for severe pain. She indicates that she is on day 8 or 9 of his severe pain episode and is hopeful that Cos Cob will help break the cycle. She is interested in integrative health techniques and has not yet met with Viky Fuentes PA-C here at [facility]. She is trying to eliminate gluten and [...] for pain psychology, ordered placed today 3. CURING PRESS OPERATOR reviewed and Cos Cob refill was appropriate. She is using this [...] side documented in this encounter Care Teams Projector Operator Relationship Specialty Start Date End Date Needs Pcp, Assignment PCP - General 04/24/14 [place] [address] documented as of this encounter
--- OUTSIDE RECORDS SUMMARY | 2022-09-15 10:29 | XMS_ITS | Encounter Summary ---
:1975 Author Organization [facility] Address [address] [place] [address] Care Team Providers Name Role Phone Needs Pcp, Assignment Primary Care Provider Reason for Visit Reason Comments QUESTIONS, GENERAL Encounter Details Date Type Department Care Team Description 12/21/2018 Telephone [facility] Lu Campos, QUESTIONS, GENERAL [address] [facility] RN [place], [place] [address] Social History Tobacco Use Types [...] Dr. Aparicio suggests evaluation at Urgent Care. RNAL AUDIT DIRECTOR Dakota Aparicio MD - 12/22/2018 10:33 AM CST I would recommend that she goes to urgent care for additional evaluation and treatment. Dakota Aparicio MD 12/22/2018, 10:35 AM RNAL AUDIT DIRECTOR Lu Campos RN - 12/21/2018 2:32 PM CST Patient phones asking if Dr. Aparicio has any suggestions regarding c/o head pain since Tuesday. Patient reports she took norco, which triggered migraine. Imitrex did not help and patient is unable to break headache. Please advise. RNAL AUDIT DIRECTOR documented in this encounter Plan of Treatment Not on filedocumented as of this encounter Visit Diagnoses Not on filedocumented in this encounter Care Teams Thread Separator Relationship Specialty Start Date End Date Needs Pcp, Assignment PCP - General 04/24/14 [place] [address] documented as of this encounter
--- OUTSIDE RECORDS SUMMARY | 2022-09-15 10:29 | XMS_ITS | Encounter Summary ---
:1975 Author Organization [facility] Address [address] [address] Care Team Providers Name Role Phone Needs Pcp, Assignment Primary Care Provider Encounter Details Date Type Department Care Team Description 12/11/2018 Notes/Orders [facility] 3931 Mario Krishna MD Neurology 3931 [facility] 39[address] [facility] [address] [place] [phone] (Wo rk) Social History Tobacco Use Types [...] questionnaireon 11/02/17 and did not return it. STANT DIRECTOR OF PLANT OPERATIONS documented in this encounter Plan of Treatment Not on filedocumented as of this encounter Visit Diagnoses Not on filedocumented in this encounter Care Teams Supervisor Trust Accounts Relationship Specialty Start Date End Date Needs Pcp, Assignment PCP - General 04/24/14 [place], [place] [address] documented as of this encounter
--- OUTSIDE RECORDS SUMMARY | 2022-09-15 10:29 | XMS_ITS | Encounter Summary ---
:1975 Author Organization [employer] Address [address] [place] [address] Care Team Providers Name Role Phone Needs Pcp, Assignment Primary Care Provider Reason for Visit Reason Comments Follow-up neck pain Encounter Details Date Type Department Care Team Description 12/14/2018 Office Visit [facility] Dakota Aparicio MD [address] [place] [address] Spondylosis of cervical region without m yelopathy or radiculopathy (Primary Dx); [address] [facility] [address], [facility] Rad Rn Occipital neuralgia of left side; [place], [place] Occipital he adache [address] Social History Tobacco Use Types Packs/Day Years Used Date Smoking Tobacco: Never Smokeless Tobacco: Never Alcohol Use Standard Drinks/Week Comments Yes 0 (1 standard drink = 0.6 oz pure alcoho l) rarely Sex Assigned at Date Recorded Not on file documented as of this encounter Last Filed Vital Signs Vital Sign Reading Time Taken Comments Blood Pressure 136/85 12/14/2018 2:57 PM SOIL SURVEYOR Pulse 89 12/14/2018 2:57 PM SOIL SURVEYOR Temperature - - Respiratory Rate 16 12/14/2018 2:57 PM SOIL SURVEYOR Oxygen Saturation 100% 12/14/2018 2:57 PM SOIL SURVEYOR Inhaled Oxygen Concentration - - Weight - - Height - - Body Mass Index - - documented in this encounter Patient Instructions Patient InstructionsDakota Aparicio MD - 12/14/2018 2:30 PM CST Images [...] taken, how much, and when it happened SURVEYOR documented in this encounter Progress Notes Cristina Gallegos CMA - 12/14/2018 2:30 PM CST Images from the original note were not included. Current med's ?? Naltrexone Imitrex - not taking as it causes worsening pain Zofran Topamax Tizanidine not currently taking - no prescription refill given NETWORK MANAGEMENT SPECIALIST for follow up SURVEYOR Dakota Aparicio MD - 12/14/2018 2:30 PM CST Interventional Pain Follow-up Appointment Subjective: Vivek Echeverria is a 43 y.o. year-old female who is here today for follow-up. The pain has migratedto the right side. The left side has somewhat stabilized. She did try botox, not sure if it is helping. She did see a plastic surgeon in [place], [place] who felt she may benefit from [...] Refills on tizanidine Dakota Aparicio MD 12/14/2018, SURVEYOR documented in this encounter Plan of Treatment Not on filedocumented as of this encounter Visit Diagnoses Diagnosis Spondylosis of cervical region without m yelopathy or radiculopathy (HRC) - Primary Cervical spondylosis without myelopathy Occipital neuralgia of left side Occipital headache Headache documented in this encounter Care Teams Insulation Packer Relationship Specialty Start Date End Date Needs Pcp, Assignment PCP - General 04/24/14 [place] [address] documented as of this encounter
--- OUTSIDE RECORDS SUMMARY | 2022-09-15 10:29 | XMS_ITS | Encounter Summary ---
:1975 Author Organization [facility] Address [address] [place] [address] Care Team Providers Name Role Phone Needs Pcp, Assignment Primary Care Provider Reason for Visit Reason Comments Pain Medication Request Encounter Details Date Type Department Care Team Description 10/18/2019 Nurse Triage Careline Unknown, Pain; Medication [address] Physician Request [place], [place] [address] [phone] [place] [address] Social History Tobacco Use Types Packs/Day Years [...] symptoms/situation): Pt calling stating her prescription ( [place]) was sent to a pharmacy she didn't request. She states she is about 40 minutes from [place]. Called [facility] to check on the status of the prescription. Pharmacy arborist representative saidthey are low on Narco and can only refill partial of the prescription tonight He states pt can pick and shovel worker partial of the [place] tonight and get the rest tomorrow. Prescribing provider doesn't have semiconductor wafers marker/after hours provider to consult with or to request a new script. Advised pt to go pick and shovel worker the prescription from [facility] as that is the only option if she needs the medication tonight or to follow up with the clinic tomorrow morning. Pt frustrated and not happy with the outcome. She ended the call. Reason for Disposition ??? [1] Follow-up call to recent contact AND [2] information only call, no triage required Protocols used: INFORMATION ONLY [id number] Ronna De La O RN 10/18/2019, 6:55 PM ER MACHINE OPERATOR Arline Howell - 10/18/2019 6:25 PM CST Verified patient identity using three identifiers: Yes Caller's relationship to patient: Self At which care system or clinic is the patient normally seen? Other (Clinic Name)[facility] Medication Questions/New Med Request/ Side Effects What medication are you calling about (name and/or type)? norco What is your question/concern? Patient states hr medication is not where she usually picked it up. States she is in severe pain Are you experiencing any symptoms? Yes Plan: Caller transferred directly to [facility]Line nurse. ER MACHINE OPERATOR documented in this encounter Plan of Treatment Not on filedocumented as of this encounter Visit Diagnoses Not on filedocumented in this encounter Care Teams Maintenance Associate Relationship Specialty Start Date End Date Needs Pcp, Assignment PCP - General 04/24/14 [place] [address] documented as of this encounter
--- OUTSIDE RECORDS SUMMARY | 2022-09-15 10:29 | XMS_ITS | Encounter Summary ---
:1975 Author Organization [facility] Address [address], [place] [address] Care Team Providers Name Role Phone Needs Pcp, Assignment Primary Care Provider Reason for Visit Reason Onset Date Comments Refill 07/16/2019 Encounter Details Date Type Department Care Team Description 07/16/2019 Refill [facility] Kaylah Morgan RN Refill [address] [place], [place] [address] Social History Tobacco Use Types [...] myelopathy documented in this encounter Care Teams Lithoduplicator Operator Relationship Specialty Start Date End Date Needs Pcp, Assignment PCP - General 04/24/14 [place] [address] documented as of this encounter
--- OUTSIDE RECORDS SUMMARY | 2022-09-15 10:30 | XMS_ITS | Encounter Summary ---
:1975 Author Organization [facility] Address [address], [place] [address] Care Team Providers Name Role Phone Needs Pcp, Assignment Primary Care Provider Reason for Visit Reason Comments Refill Encounter Details Date Type Department Care Team Description 10/09/2018 Refill [facility] Dakota Aparicio MD Refill [address] [address] [place] [address] [phone] (Wo rk) Social History Tobacco Use Types [...] and cyclobenzaprine and if refills are needed. 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
--- OUTSIDE RECORDS SUMMARY | 2022-09-15 10:30 | XMS_ITS | Encounter Summary ---
:1975 Author Organization [employer] Address [address] [place] [address] Care Team Providers Name Role Phone Needs Pcp, Assignment Primary Care Provider Reason for Visit Reason Comments Follow-up Encounter Details Date Type Department Care Team Description 09/12/2018 Office Visit [facility] Dakota Aparicio MD [address] [place] [address] Spondylosis of cervical region without m yelopathy or radiculopathy (Primary Dx); [address] 2, [facility] Rad Rn Occipital neuralgia of left side; [place], [place] Occipital he adache [address] Social History Tobacco Use Types Packs/Day Years Used Date Smoking Tobacco: Never Smokeless Tobacco: Never Alcohol Use Standard Drinks/Week Comments Yes 0 (1 standard drink = 0.6 oz pure alcoho l) rarely Sex Assigned at Date Recorded Not on file documented as of this encounter Last Filed Vital Signs Vital Sign Reading Time Taken Comments Blood Pressure 121/78 09/12/2018 10:27 AM SUPERVISOR MENDING Pulse 74 09/12/2018 10:27 AM SUPERVISOR MENDING Temperature - - Respiratory Rate 16 09/12/2018 10:27 AM SUPERVISOR MENDING Oxygen Saturation - - Inhaled Oxygen Concentration - - Weight - - Height - - Body Mass Index - - documented in this encounter Patient Instructions Patient InstructionsDakota Aparicio MD - 09/12/2018 10:10 AM CST 1. Follow-up at [facility] - regarding possible botox injections, b-blockers 2. Future considerations: retrial of cymbalta 3. Try a routine of daily aerobic exercises 4. Continue treatment for your thyroid RVISOR MENDING documented in this encounter Progress Notes Cristina [...] really work. Flexeril - PRN rarely. Cymbalta TRANSFORMER COIL WINDER for review RVISOR MENDING Cristina Gallegos CMA - 09/12/2018 10:10 AM CST Current med's Naltrexone Imitrex Zofran Topamax Tizanidine Not taking Flexeril Cymbalta RVISOR MENDING Dakota Aparicio MD - 09/12/2018 10:10 AM [...] She also got a second opinion at [facility] - saw Dr. Bunch from [facility] on Aug 01. At that time, shedidn't [...] doesn't remember if she has taken this. [employer] - hasn't refilled this yet. ROS: No radiation down her hands No fevers No chills No weakness or numbness No neurological deficits No weakness slurred speech or confusion ? Previous Medications: Gabapentin (didn't like the cognitive side effects), Cymbalta, mobic, Tylenol, aspirin, Celebrex, Voltaren, Aleve, ibuprofen, Robaxin, Flexeril, tizanidine, tramadol (didn't like how it made her feels)iván Hayden. Procedures: Cervical facet joint injection at C2/3 [...] of cervical region without myelopathy or radiculopathy ([facility]) M47.812 2. Occipital neuralgia of left side M54.81 3. Occipital headache R51 Occipital neuralgia Axial neck pain Overlapping daily headaches Hypothyroid No changes with medications at today's visit Plan: 1. Follow-up at [facility] - regarding possible botox injections, b-blockers 2. Future considerations: retrial of cymbalta 3. Try a routine of daily aerobic exercises 4. 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
--- OUTSIDE RECORDS SUMMARY | 2022-09-15 10:30 | XMS_ITS | Encounter Summary ---
:1975 Author Organization [facility] Address [address] [place] [address] Care Team Providers Name Role Phone Needs Pcp, Assignment Primary Care Provider Reason for Visit Reason Comments Refill Encounter Details Date Type Department Care Team Description 04/15/2018 Notes/Orders Specialty Center [address], [place] ne without aura Neurology MD Mario and without status [address] mi grainosus, not [address] intractable (Primary [place], [place] Dx ) [address] [phone] (Wo rk) Social History Tobacco Use Types [...] migrainosus documented in this encounter Care Teams Chopper Gun Operator Relationship Specialty Start Date End Date Needs Pcp, Assignment PCP - General 04/24/14 [place], [place] [address] documented as of this encounter
--- OUTSIDE RECORDS SUMMARY | 2022-09-15 10:30 | XMS_ITS | Encounter Summary ---
:1975 Author [facility] Address [address] [address] Care Team Providers Name Role Phone Needs Pcp, Assignment Primary Care Provider Reason for Visit Reason Comments Refill Encounter Details Date Type Department Care Team Description 10/11/2018 Telephone [facility] Lu Campos, RN Refill [address] [place], [place] [address] Social History Tobacco Use [...] happy to talk with the surgeon in [place] about the procedure. Dakota Aparicio MD 10/12/2018, 4:45 PM GER TECHNICAL TRAINING Lu Campos RN - 10/11/2018 10:03 AM [...] her after her appointment with MD in [place] tomorrow. GER TECHNICAL TRAINING documented in this encounter Plan of Treatment Not on filedocumented as of this encounter Visit Diagnoses Not on filedocumented in this encounter Care Teams Brake Lining Driller Relationship Specialty Start Date End Date Needs Pcp, Assignment PCP - General 04/24/14 [place] [address] documented as of this encounter
--- OUTSIDE RECORDS SUMMARY | 2022-09-15 10:30 | XMS_ITS | Encounter Summary ---
:1975 Author Organization [facility] Address [address], [place] [address] Care Team Providers Name Role Phone Needs Pcp, Assignment Primary Care Provider Reason for Visit Reason Comments QUESTIONS, GENERAL Encounter Details Date Type Department Care Team Description 07/26/2018 Telephone [facility] Lu Campos, QUESTIONS, GENERAL [address] [place], [place] [address] Social History Tobacco Use [...] She would like to increase naltrexone. Lu Campos, RN - 07/26/2018 2:25 PM CDT Patient [...] on filedocumented in this encounter Care Teams Home Health Outreach Coordinator Relationship Specialty Start Date End Date Needs Pcp, Assignment PCP - General 04/24/14 [place] [address] documented as of this encounter
--- OUTSIDE RECORDS SUMMARY | 2022-09-15 10:30 | XMS_ITS | Encounter Summary ---
:1975 Author Organization [facility] Address [address], [place] [address] Care Team Providers Name Role Phone Needs Pcp, Assignment Primary Care Provider Reason for Visit Reason Comments Refill Encounter Details Date Type Department Care Team Description 10/09/2018 Refill [facility] Lu Campos, RN Refill [address] [place], [place] [address] Social History Tobacco Use Types [...] message for Vivek. Would hold off on Winnie right now for her headaches, as theycan lead to rebound headaches. In terms of the occipital nerve release, this may be an option for her. I would be happy to talk about it at our next appointment, or we can try to connect on the phone on a later date. Dakota Aparicio MD 10/09/2018, 3:32 PM K PREPARATION SUPERVISOR Lu Campos RN - 10/09/2018 12:22 PM CST Images from the original note were not included. Patient phones requesting to speak with Dr. Aparicio regarding upcoming appointment with in [place] for occipital nerve release and requests norco refill. Last filled #15 on 06-26-18. PATROL POLICE SERGEANT for refill. 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
--- OUTSIDE RECORDS SUMMARY | 2022-09-15 10:30 | XMS_ITS | Encounter Summary ---
:1975 Author Organization [facility] Address [address], [place] [address] Care Team Providers Name Role Phone Needs Pcp, Assignment Primary Care Provider Reason for Visit Reason Comments Refill Encounter Details Date Type Department Care Team Description 05/03/2018 Refill [facility] Dakota Aparicio MD Refill [address] [place] [address] [phone] (Wo rk) Social History Tobacco Use Types [...] myelopathy documented in this encounter Care Teams Women'S Activities Adviser Relationship Specialty Start Date End Date Needs Pcp, Assignment PCP - General 04/24/14 [place] [address] documented as of this encounter
--- OUTSIDE RECORDS SUMMARY | 2022-09-15 10:30 | XMS_ITS | Encounter Summary ---
:1975 Author Organization [facility] Address [address] [place] [address] Care Team Providers Name Role Phone Needs Pcp, Assignment Primary Care Provider Reason for Visit Reason Comments Pre-procedure Call Encounter Details Date Type Department Care Team Description 04/25/2018 Telephone [facility] Erin Askew RN Pre-procedure Call [address] [place], [place] [address] Social History Tobacco Use Types [...] filedocumented in this encounter Care Teams Supervisor Metalizing Relationship Specialty Start Date End Date Needs Pcp, Assignment PCP - General 04/24/14 [place] [address] documented as of this encounter
--- OUTSIDE RECORDS SUMMARY | 2022-09-15 10:30 | XMS_ITS | Encounter Summary ---
:1975 Author Organization [facility] Address [address], [place] [address] Care Team Providers Name Role Phone Needs Pcp, Assignment Primary Care Provider Reason for Visit Reason Comments Refill Encounter Details Date Type Department Care Team Description 06/25/2018 Refill [facility] Dakota Aparicio MD Refill [address] [place] [address] [phone] (Wo rk) Social History Tobacco Use Types [...] from the original note were not included. [facility] request refill Tizanidine 4 mg. Last office visit 03/07/2018. Upcoming office visit 06/29/2018. Please advise. Last directions written for Tizanidine was on 08/04/2017: 3) Tizanidine 2-4mg twice a day as needed for neck pain - can cause sedation. MERCHANDISE FOR RESALE PURCHASING AGENT for Rx refill request documented in this encounter Plan of Treatment Not on filedocumented as of this encounter Visit Diagnoses Not on filedocumented in this encounter Care Teams Landing Man Relationship Specialty Start Date End Date Needs Pcp, Assignment PCP - General 04/24/14 [place], [place] [address] documented as of this encounter
--- OUTSIDE RECORDS SUMMARY | 2022-09-15 10:30 | XMS_ITS | Encounter Summary ---
:1975 Author Organization [facility] Address [address], [place] [address] Care Team Providers Name Role Phone Needs Pcp, Assignment Primary Care Provider Reason for Visit Reason Onset Date Comments Refill 04/21/2018 Encounter Details Date Type Department Care Team Description 04/21/2018 Refill [facility] Kaylah Morgan RN Refill [address] [place], [place] [address] Social History Tobacco Use Types [...] not included. Pt called requesting refill on [place]. Last note says she can have 1/2 tab daily if needed and she needs a office visit for any refills. 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
--- OUTSIDE RECORDS SUMMARY | 2022-09-15 10:30 | XMS_ITS | Encounter Summary ---
:1975 Author Organization [employer] Address [address] [place] [address] Care Team Providers Name Role Phone Needs Pcp, Assignment Primary Care Provider Reason for Visit Reason Comments NECK PAIN Encounter Details Date Type Department Care Team Description 06/29/2018 Office Visit [facility] Dakota Aparicio MD [address] [place] [address] Spondylosis of cervical region without m yelopathy or radiculopathy (Primary Dx); [address], [facility] Rad Rn Occipital neuralgia of left side [place], [place] [address] Social History Tobacco Use Types Packs/Day Years [...] from the original note were not included. Subscription Agent For follow up Dakota Aparicio MD - [...] Excedrin Migraine. She is not currently taking [place]. Medications: Topamax - 50mg QHS Excedrin migraine - has been taking this every morning. Elavil - hasn't been taking this - put on weight with this. Tizanidine - doesn't like this - gives me a head buzz. Doesn't really work. Flexeril - PRN rarely. Cymbalta [place] - hasn't refilled this yet. ROS 02/07 [...] of cervical region without myelopathy or radiculopathy ([facility]) M47.812 2. Occipital neuralgia of left [...] evidence of an anti-inflammatory effect in the TICKET AGENT. I told her she cannot be on opioids while starting this, and has to wait 7-10 days off opioids prior to starting naltrexone. She is also going get a second opinion regarding a AA injection. I told her these are high risk injections and they work transiently, but in certain patients can provide meaningful relief. [facility] Dr. Herman. [...] cervical region without m yelopathy or radiculopathy ([facility]) - Primary Cervical spondylosis without myelopathy Occipital neuralgia of left side documented in this encounter Care Teams Commercial Energy Rater Relationship Specialty Start Date End Date Needs Pcp, Assignment PCP - General 04/24/14 [place], [place] [address] documented as of this encounter
--- OUTSIDE RECORDS SUMMARY | 2022-09-15 10:30 | XMS_ITS | Encounter Summary ---
:1975 Author Organization [facility] Address [address], [place] [address] Care Team Providers Name Role Phone Needs Pcp, Assignment Primary Care Provider Reason for Visit Reason Onset Date Comments Refill Refill 09/14/2018 Encounter Details Date Type Department Care Team Description 07/27/2018 Refill [facility] 3931 Mario Krishna MD Refill; Refill Neurology 39[address] [facility] 39[address] [facility] [address] [place] [address] [place], [place] [phone] (Wo rk) Social History Tobacco Use Types Packs/Day Years Used Date Smoking Tobacco: Never Smokeless Tobacco: Never Alcohol Use Standard Drinks/Week Comments Yes 0 (1 standard drink = 0.6 oz pure alcoho l) rarely Sex Assigned at Date Recorded Not on file documented as of this encounter Progress Notes Jimi Grace RN - 09/14/2018 10:40 AM MOTO MIX OPERATOR Addended by: JIMI REZA on: 09/14/2018 10:40 AM Modules accepted: Orders MIX OPERATOR documented in this encounter Nursing Notes Jimi Grace RN - 09/14/2018 10:53 AM CST Called pharmacy to disregard the script. MIX OPERATOR Vilma Clemente RN - 07/27/2018 2:[address] Garcia pt documented in this encounter Plan of Treatment Not on filedocumented as of this encounter Visit Diagnoses Diagnosis Migraine without aura and without status migrainosus, not intractable Migraine without aura, without mention o f intractable migraine without mention of status migrainosus documented in this encounter Care Teams Palliative Senior Np Relationship Specialty Start Date End Date Needs Pcp, Assignment PCP - General 04/24/14 [place] [address] documented as of this encounter
--- OUTSIDE RECORDS SUMMARY | 2022-09-15 10:30 | XMS_ITS | Encounter Summary ---
:1975 Author Organization [facility] Address [address], [place] [address] Care Team Providers Name Role Phone Needs Pcp, Assignment Primary Care Provider Reason for Visit Reason Comments Refill Encounter Details Date Type Department Care Team Description 04/08/2018 Refill [facility] Dakota Aparicio MD Refill [address] [place] [address] [phone] (Wo rk) Social History Tobacco Use Types Packs/Day Years Used Date Smoking Tobacco: Never Smokeless Tobacco: Never Alcohol Use Standard Drinks/Week Comments No 0 (1 standard drink = 0.6 oz pure alcoho l) rarely Sex Assigned at Date Recorded Not on file documented as of this encounter Nursing Notes Erin Askew RN - 04/10/2018 8:39 AM CDT Refill request for Topamax. Last OV 02/2018. Refilled per protocol. 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
--- OUTSIDE RECORDS SUMMARY | 2022-09-15 10:30 | XMS_ITS | Encounter Summary ---
:1975 Author Organization [facility] Address [address] [address] Care Team Providers Name Role Phone Needs Pcp, Assignment Primary Care Provider Reason for Visit Reason Comments QUESTIONS, GENERAL Encounter Details Date Type Department Care Team Description 10/03/2018 Telephone [facility] Marlen Guillen RN QUESTIONS, GENERAL [address] [place], [place] [address] Social History Tobacco Use Types Packs/Day Years Used Date Smoking Tobacco: Never Smokeless Tobacco: Never Alcohol Use Standard Drinks/Week Comments Yes 0 (1 standard drink = 0.6 oz pure alcoho l) rarely Sex Assigned at Date Recorded Not on file documented as of this encounter Nursing Notes Marlen Guillen RN - 10/03/2018 1:14 PM CST Pt calling for refill of [place]. States Naltrexone is not working and she would like you to call her to discuss a consult she has in [place] on 09/11 to have a nerve release procedure done. 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
--- OUTSIDE RECORDS SUMMARY | 2022-09-15 10:30 | XMS_ITS | Encounter Summary ---
:1975 Author Organization [facility] Address [address] [place] [address] Care Team Providers Name Role Phone Needs Pcp, Assignment Primary Care Provider Reason for Visit Reason Comments Post Visit Follow Up Phone Call Encounter Details Date Type Department Care Team Description 05/01/2018 Telephone [facility] Leyla Mendez RN Post Visit Follow Up [address] [employer] Phone Call [place], [place] [address] Social History Tobacco Use [...] on filedocumented in this encounter Care Teams Health Information Clerk Relationship Specialty Start Date End Date Needs Pcp, Assignment PCP - General 04/24/14 [place] [address] documented as of this encounter
--- OUTSIDE RECORDS SUMMARY | 2022-09-15 10:30 | XMS_ITS | Encounter Summary ---
:1975 Author Organization [facility] Address [address] [address] Care Team Providers Name Role Phone Needs Pcp, Assignment Primary Care Provider Reason for Visit Reason Onset Date Comments Refill 06/09/2018 Encounter Details Date Type Department Care Team Description 06/09/2018 Refill [facility] Dakota Aparicio MD Refill [address] [address] [address] [place] [address] [phone] (Wo rk) Social History Tobacco Use Types [...] Aparicio's note from February states: Refills on [place] today - any future refills needs a clinic visit. There was a procedure visit, and an additional refill on 04/21. She has an appointment set for 06/15. Based on these factors, we'll provide 15 tabs of [place] today, which appears to be part of a longstanding and comprehensive plan with Dr. Aparicio. Prescription Monitoring Program Report As I am helping to treat this patient's clinically significant pain and considering medication options as part of a broader management scheme, I personally reviewed the patient's up-to-date PUBLIC POLICY MEDIATOR report for [place], as well as any other pertinent, available [...] from the original note were not included. PUBLIC POLICY MEDIATOR for refill documented in this encounter Plan of Treatment Not on filedocumented as of this encounter Visit Diagnoses Diagnosis Spondylosis of cervical region without m yelopathy or radiculopathy ([facility]) Cervical spondylosis without myelopathy Occipital headache Headache Occipital neuralgia of left side documented in this encounter Care Teams Binding Dyer Relationship Specialty Start Date End Date Needs Pcp, Assignment PCP - General 04/24/14 [place] [address] documented as of this encounter
--- OUTSIDE RECORDS SUMMARY | 2022-09-15 10:30 | XMS_ITS | Encounter Summary ---
:1975 Author Organization [facility] Address [address] [address] Care Team Providers Name Role Phone Needs Pcp, Assignment Primary Care Provider Reason for Visit Reason Onset Date Comments Refill 06/26/2018 Encounter Details Date Type Department Care Team Description 06/26/2018 Refill [facility] Dakota Aparicio MD Refill [address] [address] [address] [place] [address] [phone] (Wo rk) Social History Tobacco Use Types Packs/Day Years Used Date Smoking Tobacco: Never Smokeless Tobacco: Never Alcohol Use Standard Drinks/Week Comments No 0 (1 standard drink = 0.6 oz pure alcoho l) rarely Sex Assigned at Date Recorded Not on file documented as of this encounter Nursing Notes Leyla Mendez RN - 06/26/2018 3:34 PM CDT Images from the original note were not included. BATCH AND FURNACE OPERATOR for refill. Patient had appointment for 06/15/18, [...] side documented in this encounter Care Teams Welt Cutter Relationship Specialty Start Date End Date Needs Pcp, Assignment PCP - General 04/24/14 [place] [address] documented as of this encounter
--- OUTSIDE RECORDS SUMMARY | 2022-09-15 10:30 | XMS_ITS | Encounter Summary ---
:1975 Author Organization [employer] Address [address] [address] Care Team Providers Name Role Phone Needs Pcp, Assignment Primary Care Provider Reason for Visit Reason Comments QUESTIONS, GENERAL Encounter Details Date Type Department Care Team Description 06/22/2018 Telephone [facility] Marlen Guillen RN QUESTIONS, GENERAL [address] [place], [place] [address] Social History Tobacco Use Types Packs/Day Years [...] on filedocumented in this encounter Care Teams Liquor Merchant Relationship Specialty Start Date End Date Needs Pcp, Assignment PCP - General 04/24/14 [place] [address] documented as of this encounter
--- OUTSIDE RECORDS SUMMARY | 2022-09-15 10:30 | XMS_ITS | Encounter Summary ---
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) Dakota Aparicio MD Procedures FL C Arm 40 Pain Management [address] [place] [address] 540 17 Referral ID Status Reason Start Date Expiration Date Visits V isits Requested Authorized [id number] Incomplete 04/04/2018 07/04/2019 1 1 Reason for Visit Reason Comments RESULTS, TEST Encounter Details Date Type Department Care Team Description 04/04/2018 Telephone [facility] Dakota Aparicio MD RESULTS, TEST [address] 5543 1 [place] [address] [phone] (Wo rk) Social History Tobacco Use Types [...] myelopathy documented in this encounter Care Teams Shop Assistant Relationship Specialty Start Date End Date Needs Pcp, Assignment PCP - General 04/24/14 [place] [address] documented as of this encounter
--- OUTSIDE RECORDS SUMMARY | 2022-09-15 10:30 | XMS_ITS | Encounter Summary ---
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) Dakota Aparicio MD Procedures Inj Midazolam Hydrochloride [address] [place] [address] 17 Referral ID Status Reason Start Date Expiration Date Visits Requ ested Visits Authorized [id number] Closed 04/28/2018 07/28/2019 1 1 (Routine) - Closed Specialty Diagnoses / Procedures Referred By Contact Refer red To Contact Diagnoses 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) Dakota Aparicio MD Procedures Fentanyl Citrate Injection [address] [place] [address] 17 Referral ID Status Reason Start Date Expiration Date Visits Requ ested Visits Authorized [id number] Closed 04/28/2018 07/28/2019 1 1 Reason for Visit Reason Comments Procedure Procedure/Equipment (Routine) - Incomplete Specialty Diagnoses / Procedures Referred By Contact Refer red To Contact Diagnoses 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) Dakota Aparicio MD Procedures FL C Arm 40 Pain Management [address] [place] [address] 17 Referral ID Status Reason Start Date Expiration Date Visits V isits Requested Authorized [id number] Incomplete 04/04/2018 07/04/2019 1 1 Encounter Details Date Type Department Care Team Description 04/28/2018 Procedure Visit [facility] Dakota Aparicio MD [address] [place] [address] Procedure [address] [facility] [address] 1, Tritelly Rad Joni [place] [address] Social History Tobacco Use Types Packs/Day Years [...] Patient Instructions Patient Lila Johns RN - 04/28/2018 8:50 AM CDT FOLLOW UP PLAN: You will follow up in the [facility] as discussed: call [phone] to arrange an appointment if you do [...] your normal activities tomorrow (Physical Therapy & home health care physician can also be resumed next day). ?? [...] Pain Program Nurse Line from 8am-4pm at [phone] Call 911 or go to the nearest Emergency Department if you experience: Fever Chest pain Progressive extremity weakness Difficult maintaining consciousness Loss of bowel or bladder control Shortness of breath Any other medical emergency Dr. Dakota Aparicio MD Interventional Pain Physician and Anesthesiologist Please contact the Pain Nurse ([phone]) for all medical/procedural questions regarding your care at the [facility] Please contact our Orientation And Mobility Instructor ([phone]) for all administrative/scheduling questions related to the [...] completed, patient verbalizes understanding. Confirmed pt has tanker driver home. Consent per MD. Dakota Aparicio MD [...] - 04/28/2018 8:50 AM CDT Sedation time [id number] Lila Garcia RN - 04/28/2018 8:50 AM CDT Patient tolerated procedure well, vital signs stable. Post-procedure pain level 3/10 at rest, 5/10 with activity. Discharge instructions given (written & verbal review), patient verbalized understanding. Patient discharged to home at 1101 via ambulatory with tanker driver. documented in this encounter Procedure Notes [...] VAS with extension 10 minutes after RF: 10 Informed Consent: The patient's condition and proposed procedures, risks, and alternatives were discussed with the patient or responsible green party. Possible risks and complications associated with the procedure and conscious sedation reviewed, including but not limited to infection, bleeding, injury to nerves, muscle, bone or skin, paralysis, worse pain, allergic reaction, or side effects of medications used. The patient's / responsible green party's questions were answered. The patient / responsible green party appeared to understand and chose to [...] dose documented in this encounter Care Teams Drop Wire Operator Relationship Specialty Start Date End Date Needs Pcp, Assignment PCP - General 04/24/14 [place] [address] documented as of this encounter
--- OUTSIDE RECORDS SUMMARY | 2022-09-15 10:30 | XMS_ITS | Encounter Summary ---
:1975 Author Organization [facility] Address [address] [place] [address] Care Team Providers Name Role Phone Needs Pcp, Assignment Primary Care Provider Reason for Visit Reason Comments Post Visit Follow Up Phone Call Encounter Details Date Type Department Care Team Description 03/29/2018 Telephone [facility] Leyla Mendez RN Post Visit Follow Up 8100 [employer] Phone Call [place], [place] [address] Social History Tobacco Use Types [...] on filedocumented in this encounter Care Teams Customer Development Representative Relationship Specialty Start Date End Date Needs Pcp, Assignment PCP - General 04/24/14 [facility] [place] [address] documented as of this encounter
--- OUTSIDE RECORDS SUMMARY | 2022-09-15 10:31 | XMS_ITS | Encounter Summary ---
:1975 Author Organization [facility] Address [address], [place] [address] Care Team Providers Name Role Phone Needs Pcp, Assignment Primary Care Provider Reason for Visit Reason Comments Refill Encounter Details Date Type Department Care Team Description 02/11/2018 Refill [facility] Dakota Aparicio MD Refill [address] 1 [place] [address] [phone] (Wo rk) Social History Tobacco Use Types [...] myelopathy documented in this encounter Care Teams Professor Of Engineering Relationship Specialty Start Date End Date Needs Pcp, Assignment PCP - General 04/24/14 [place] [address] documented as of this encounter
--- OUTSIDE RECORDS SUMMARY | 2022-09-15 10:31 | XMS_ITS | Encounter Summary ---
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) Dakota Aparicio MD [address] [place] [address] 67 Referral ID Status Reason Start Date Expiration Date Visits Requ ested Visits Authorized [id number] Closed 11/01/2017 01/31/2019 1 1 Encounter Details Date Type Department Care Team Description 02/21/2018 Initial Consult Specialty Center Laurel Garcia MD Migraine without aura and without status migrainosus, not intractable (Primary Dx); [address] [place] Occipital neuralgia, unspeci fied laterality; 39[address] [facility] [place] [address] Social History Tobacco Use Types Packs/Day Years Used Date Smoking Tobacco: Never Smokeless Tobacco: Never Alcohol Use Standard Drinks/Week Comments No 0 (1 standard drink = 0.6 oz pure alcoho l) rarely Sex Assigned at Date Recorded Not on file documented as of this encounter Patient Instructions Patient InstructionsLaurel Garcia MD - 02/21/2018 8:15 AM CDT Neck [...] CDT Neurology Consult 02/21/18 Dakota Aparicio MD [address] [place] [address] RE: Vivek Echeverria MR#: [id number] Dear Dr. Dakota Aparicio: Thank you for [...] the headaches. She ran out of her Dragon Ports prescipt She started having migraine headaches about [...] throughout. Complex motor skills revealed normal coordination. Lylygz-tuhf-rhbtqv and heel to wade were intact. Sensory [...] Cervicalgia documented in this encounter Care Teams Interior Design Consultant Relationship Specialty Start Date End Date Needs Pcp, Assignment PCP - General 04/24/14 [place] [address] documented as of this encounter
--- OUTSIDE RECORDS SUMMARY | 2022-09-15 10:31 | XMS_ITS | Encounter Summary ---
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) Dakota Palumbo MD Procedures FL C Arm 40 Pain Management [address] [place] [address] 540 17 Referral ID Status Reason Start Date Expiration Date Visits V isits Requested Authorized [id number] Incomplete 06/10/2017 09/09/2018 1 1 Reason for Visit Reason Comments Procedure Procedure/Equipment (Routine) - Incomplete Specialty Diagnoses / Procedures Referred By Contact Refer red To Contact Diagnoses 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) Dakota Palumbo MD Procedures FL C Arm 20 Pain Management [address] [place] [address] 540 17 Referral ID Status Reason Start Date Expiration Date Visits V isits Requested Authorized [id number] Incomplete 03/29/2017 06/28/2018 1 1 Encounter Details Date Type Department Care Team Description 06/07/2017 Procedure Visit [facility] Dakota Palumbo MD [address] [place] [address] Procedure 8100 [facility] 3, Ximena Rad Joni [place], [place] [address] Social History Tobacco Use Types [...] Patient Instructions Patient InstructionsLila Garcia RN - 06/07/2017 10:10 AM CDT FOLLOW UP PLAN: You will follow up in the [facility] as discussed: call [phone] to arrange an appointment if you do [...] and Anesthesiologist Please contact the Pain Nurse ([phone]) for all medical/procedural questions regarding your care at the [facility] Please contact our Nuclear Operator ([phone]) for all administrative/scheduling questions related to the [...] 06/10/2017 04:59 PM Modules accepted: Orders Lucy Albercht RN - 06/07/2017 10:10 AM CDT Patient [...] to home at 1112 via ambulatory with food mobile driver. documented in this encounter Procedure Notes [...] with the patient or responsible alliance party. The patient's / responsible alliance party's questions were answered. Risks include but not limited to infection, bleeding, nerve injury, increased pain, spinal cord injury, allergic reactions. Patient refused UPT test prior to the procedure. The patient / responsible alliance party appeared [...] note in Epic on this date. Dakota CONCEPCION FL C Arm 20 Pain Management (06/07/2017 [...] myelopathy documented in this encounter Care Teams Bisque Brusher Relationship Specialty Start Date End Date Needs Pcp, Assignment PCP - General 04/24/14 [place] [address] documented as of this encounter
--- OUTSIDE RECORDS SUMMARY | 2022-09-15 10:31 | XMS_ITS | Encounter Summary ---
:1975 Author Organization [employer] Address [address], [place] [address] Care Team Providers Name Role Phone Needs Pcp, Assignment Primary Care Provider Reason for Visit Reason Onset Date Comments Pre-procedure Call 06/02/2017 Encounter Details Date Type Department Care Team Description 06/02/2017 Telephone [facility] Lucy Albrecht, Pre-procedure Call 8100 [facility] [place], [place] [address] Social History Tobacco Use Types [...] Allergy (Cervicals must be pre-medicated) Must have stage driver home. Reviewed NSAID use with patient: [...] on filedocumented in this encounter Care Teams Honeycomb Blanket Maker Relationship Specialty Start Date End Date Needs Pcp, Assignment PCP - General 04/24/14 [place] [address] documented as of this encounter
--- OUTSIDE RECORDS SUMMARY | 2022-09-15 10:31 | XMS_ITS | Encounter Summary ---
:1975 Author Organization [facility] Address [address] [place] [address] Care Team Providers Name Role Phone Needs Pcp, Assignment Primary Care Provider Reason for Visit Reason Onset Date Comments Refill 02/22/2018 Encounter Details Date Type Department Care Team Description 02/22/2018 Refill [facility] Erin Askew RN Refill 8100 [place], [place] [address] Social History Tobacco Use Types [...] scheme, I personally reviewed the patient's up-to-date PLASTER BLOCK LAYER report for [place], as well as any other pertinent, available [...] substances. Refilled after reviewing Ney's notes and PLASTER BLOCK LAYER - please let patient know; also request a follow up with with Dr. Aparicio if there is ongoing medication management. Johnathan Perez MD 02/22/2018, 12:45 PM Erin Askew RN - 02/22/2018 12:08 PM CDT Images from the original note were not included. PLASTER BLOCK LAYER Johnathan Perez MD - 02/22/2018 12:02 PM [...] so bad lately. Is requesting refill of Floweree. Last OV note on 11/01/17 noted Floweree 5/325mg - take 1/2 tab every other day. Please approve or advise in Dr. Aparicio absence. documented in this encounter Plan of Treatment Not on filedocumented as of this encounter Visit Diagnoses Diagnosis Spondylosis of cervical region without m yelopathy or radiculopathy (HRC) Cervical spondylosis without myelopathy Occipital headache Headache Occipital neuralgia of left side documented in this encounter Care Teams Charting Clerk Relationship Specialty Start Date End Date Needs Pcp, Assignment PCP - General 04/24/14 [place] [address] documented as of this encounter
--- OUTSIDE RECORDS SUMMARY | 2022-09-15 10:31 | XMS_ITS | Encounter Summary ---
:1975 Author Organization [facility] Address [address], [place] [address] Care Team Providers Name Role Phone Needs Pcp, Assignment Primary Care Provider Reason for Visit Reason Onset Date Comments Refill 06/27/2017 [place] Encounter Details Date Type Department Care Team Description 06/27/2017 Refill [facility] Fawad Geiger MD Refill ([place]) [address] [place] [address] [place] [address] 1 [place] [address] [phone] (Wo rk) Social History Tobacco Use Types Packs/Day Years Used Date Smoking Tobacco: Never Smokeless Tobacco: Never Alcohol Use Standard Drinks/Week Comments No 0 (1 standard drink = 0.6 oz pure alcoho l) rarely Sex Assigned at Date Recorded Not on file documented as of this encounter Nursing Notes Kaity Naik RN - 06/27/2017 2:02 PM CDT Routing to [facility], requesting medication refill today. Kaity Naik RN - 06/27/2017 12:06 PM CDT Pt calling, requesting [place]. Pain at 810. Had injection with pain clinic 06/07, ablation scheduled for 07/21/17. Last filled 05/27/17 #30. Called pt, LM asking if she can wait until Wednesday when Juanjo back if office, or if needing now. documented in this encounter Plan of Treatment Not on filedocumented as of this encounter Visit Diagnoses Not on filedocumented in this encounter Care Teams Corporate Lawyer Relationship Specialty Start Date End Date Needs Pcp, Assignment PCP - General 04/24/14 [place] [address] documented as of this encounter
--- OUTSIDE RECORDS SUMMARY | 2022-09-15 10:31 | XMS_ITS | Encounter Summary ---
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) Occipital neuralgia of left side Dakota Aparicio MD Procedures FL C Arm 20 Pain Management [address] [place] [address] 17 Referral ID Status Reason Start Date Expiration Date Visits V isits Requested Authorized [id number] Incomplete 03/07/2018 06/06/2019 1 1 Reason for Visit Reason Comments Follow-up Encounter Details Date Type Department Care Team Description 03/07/2018 Office Visit [facility] Dakota Aparicio MD [address] [place] [address] Spondylosis of cervical region without m yelopathy or radiculopathy (Primary Dx); [address] 1, [facility] Occipital neuralgia of left side [place], [place] [address] Social History Tobacco Use Types Packs/Day Years [...] MD - 03/07/2018 11:10 AM CDT 1) Hilliard refill - this is not going to be a tank terminal gauger refill. This will make your headaches and [...] medications, in ALL states. As laws can microsoft exchange administrator time, one should review the state government website to understand the laws governing driving while on prescription medications, such as opioids. Drugged Driving Defined A [place] motorist can be convicted of a drug [...] schedules I and II--thesubset of drugs that [place] law prohibits for drivers in??any??amount--contains substances such [...] from the original note were not included. [facility] for follow up Patient here [...] slurred speech or confusion ? Pertinent Medications:?? Hilliard up to 1/2 tab a day (ran [...] Had relief during the local anesthetic phase (8->/10), but no relief during the steroid phase. [...] in upper extremities. Sensation intact bilaterally. Assessment: Vivek is a 42 y.o. year-old female with: ICD-10-CM 1. Spondylosis of cervical region without myelopathy or radiculopathy ([facility]) M47.812 FL C Arm 20 PainManagement [place] [...] injection. She did request a refill of Hilliard today. I did provide #20 tabs but [...] occipital nerve) and C3. 3. Refills on Hilliard today - any future refills needs a [...] CDT Images obtained during surgical procedure. Dakota [place] documented in this encounter Visit Diagnoses Diagnosis Spondylosis of cervical region without m yelopathy or radiculopathy (HRC) - Primary Cervical spondylosis without myelopathy Occipital neuralgia of left side Spondylosis of cervical region without m yelopathy or radiculopathy (HRC) Cervical spondylosis without myelopathy Occipital neuralgia of left side documented in this encounter Care Teams Application Support Intern Relationship Specialty Start Date End Date Needs Pcp, Assignment PCP - General 04/24/14 [place] [address] documented as of this encounter
--- OUTSIDE RECORDS SUMMARY | 2022-09-15 10:31 | XMS_ITS | Encounter Summary ---
:1975 Author Organization [facility] Address [address], [place] [address] Care Team Providers Name Role Phone Needs Pcp, Assignment Primary Care Provider Reason for Visit Reason Comments Refill Encounter Details Date Type Department Care Team Description 01/11/2018 Refill [facility] Dakota Aparicio MD Refill [address] 1 [place] [address] [phone] (Wo rk) Social History Tobacco Use Types [...] myelopathy documented in this encounter Care Teams Home Energy Auditor Relationship Specialty Start Date End Date Needs Pcp, Assignment PCP - General 04/24/14 [place] [address] documented as of this encounter
--- OUTSIDE RECORDS SUMMARY | 2022-09-15 10:31 | XMS_ITS | Encounter Summary ---
:1975 Author Organization [facility] Address [address], [place] [address] Care Team Providers Name Role Phone Needs Pcp, Assignment Primary Care Provider Reason for Visit Reason Comments HEADACHE Encounter Details Date Type Department Care Team Description 10/25/2017 Telephone [facility] Dakota Aparicio MD HEADACHE [address] [place] [address] 1 [place] [address] [phone] (Wo rk) Social History Tobacco Use Types [...] 1 day. Patient also requesting refill on [place]. Spoke with Dr. Aparicio who instructed that patient be seen in ER if continues to have headaches, will send refill request through to Dr Aparicio. Per Dr. Aparicio patient to schedule follow up with him next week. Called patient instructed her per Dr. Aparicio's response. Patient verbalized understanding. Patient transferred to [facility] to schedule follow up visit with Dr. Aparicio. Y GUN REPAIRER HELPER documented in this encounter Plan of Treatment Not on filedocumented as of this encounter Visit Diagnoses Diagnosis Spondylosis of cervical region without m yelopathy or radiculopathy (HRC) Cervical spondylosis without myelopathy Occipital headache Headache documented in this encounter Care Teams Hydrometallurgical Engineer Relationship Specialty Start Date End Date Needs Pcp, Assignment PCP - General 04/24/14 [place] [address] documented as of this encounter
--- OUTSIDE RECORDS SUMMARY | 2022-09-15 10:31 | XMS_ITS | Encounter Summary ---
:1975 Author Organization [facility] Address [address], [place] [address] Care Team Providers Name Role Phone Needs Pcp, Assignment Primary Care Provider Reason for Visit Reason Comments Refill Encounter Details Date Type Department Care Team Description 07/08/2017 Refill [facility] Dakota Aparicio MD Refill [address] 1 [place] [address] [phone] (Wo rk) Social History Tobacco Use Types [...] myelopathy documented in this encounter Care Teams Retail Bakery Manager Relationship Specialty Start Date End Date Needs Pcp, Assignment PCP - General 04/24/14 [place] [address] documented as of this encounter
--- OUTSIDE RECORDS SUMMARY | 2022-09-15 10:31 | XMS_ITS | Encounter Summary ---
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) Dakota Aparicio MD Procedures Inj Midazolam Hydrochloride [address] [place] [address] 540 17 Referral ID Status Reason Start Date Expiration Date Visits Requ ested Visits Authorized [id number] Closed 07/21/2017 10/20/2018 1 1 Reason for Visit Reason Comments Procedure Procedure/Equipment (Routine) - Incomplete Specialty Diagnoses / Procedures Referred By Contact Refer red To Contact Diagnoses 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) Dakota Aparicio MD Procedures FL C Arm 40 Pain Management [address] [place] [address] 540 17 Referral ID Status Reason Start Date Expiration Date Visits V isits Requested Authorized [id number] Incomplete 06/10/2017 09/09/2018 1 1 Encounter Details Date Type Department Care Team Description 07/21/2017 Procedure Visit [facility] Dakota Aparicio MD [address] [place] [address] Procedure [address] [facility] 3, [address] [place], [place] [address] Social History Tobacco Use Types [...] documented in this encounter Patient Instructions Patient Leyla Robertson RN - 07/21/2017 9:50 AM CDT FOLLOW UP PLAN: You will follow up in the [facility] Pain Program as discussed: call [phone] to arrange an appointment if you do not already have one. Dr. Dakota Aparicio MD Interventional Pain Physician and Anesthesiologist Please contact the Pain Nurse ([phone]) for all medical/procedural questions regarding your care at the [facility] Pain Program Please contact our Net Applications Developer ([phone]) for all administrative/scheduling questions related to the [...] effects or other non-urgent concerns, call the [facility] Pain Program Nurse Line from 8am-4pm at [phone] Call 911 or go to the nearest [...] your normal activities tomorrow (Physical Therapy & multi care technician can also be resumed next day). ?? [...] teaching completed, patient verbalizes understanding. 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 Consent per MD. Lucy Albrecht RN - 07/21/2017 9:50 AM CDT Sedation time [id number] Leyla Mendez RN - 07/21/2017 9:50 AM [...] 20 gauge 10cm with 10mm active tip [place] RF probe Sedation: 2 mg of IV [...] with the patient or responsible constitution party. Possible risks and complications associated with the procedure and conscious sedation reviewed, including but not limited to infection, bleeding, injury to nerves, muscle, bone or skin, paralysis, worse pain, allergic reaction, or side effects of medications used. The patient's / responsible constitution party's questions were answered. The patient / responsible constitution party appeared to understand and chose [...] 4. I did prescribe #21 tabs of Weiner for the patient as she recovers from [...] 1045 documented in this encounter Care Teams Log Chipper Operator Relationship Specialty Start Date End Date Needs Pcp, Assignment PCP - General 04/24/14 [place] [address] documented as of this encounter
--- OUTSIDE RECORDS SUMMARY | 2022-09-15 10:31 | XMS_ITS | Encounter Summary ---
:1975 Author Organization [facility] Address [address], [place] [address] Care Team Providers Name Role Phone Needs Pcp, Assignment Primary Care Provider Reason for Visit Reason Comments Finger Pain left Encounter Details Date Type Department Care Team Description 08/04/2017 Office Visit Luis Fernando Bojorquez Fing er pain, left CENTER (Primary Dx) [address] [place] [address] [address] [place] [address] [place], [place] [phone] (Wo rk) Social History Tobacco Use Types [...] Garcia MD Hand & Upper Extremity Surgeon Building Performance Consultant: Mickie Olmos Please contact Mickie for all surgery scheduling and administrative questions at [phone] Hand Nurse: Luigi Wilson Please contact Luigi for all medical related questions at [phone] Medication Requests: Prescriptions are not filled on Weekends or on Weekdays after 3:00PM For all medication refills: Request a refill using inSilicahart or contact your Pharmacy Please call [phone] to make future appointments. Follow up as discussed documented in this encounter Progress Notes Luis Fernando Garcia MD - 08/04/2017 9:00 AM CDT [facility] Follow-Up 08/04/2017 Chief Complaint: Post-Surgical pain History of Present Illness: iVvek Echeverria is a 42 y.o. female worker's [...] limb documented in this encounter Care Teams Multifocal Lens Assembler Relationship Specialty Start Date End Date Needs Pcp, Assignment PCP - General 04/24/14 [place] [address] documented as of this encounter
--- OUTSIDE RECORDS SUMMARY | 2022-09-15 10:31 | XMS_ITS | Encounter Summary ---
:1975 Author Organization [facility] Address [address], [place] [address] Care Team Providers Name Role Phone Needs Pcp, Assignment Primary Care Provider Reason for Visit Reason Onset Date Comments Post Visit Follow Up Phone Call 05/25/2017 Encounter Details Date Type Department Care Team Description 05/25/2017 Telephone [facility] Erin Askew RN Post Visit Follow Up [address] Phone Call [place], [place] [address] Social History Tobacco Use Types [...] on filedocumented in this encounter Care Teams Office Machine Service Supervisor Relationship Specialty Start Date End Date Needs Pcp, Assignment PCP - General 04/24/14 [place] [address] documented as of this encounter
--- OUTSIDE RECORDS SUMMARY | 2022-09-15 10:31 | XMS_ITS | Encounter Summary ---
:1975 Author Organization [employer] Address [address], [place] [address] Care Team Providers Name Role Phone Needs Pcp, Assignment Primary Care Provider Reason for Visit Reason Onset Date Comments Refill 05/27/2017 [place] Encounter Details Date Type Department Care Team Description 05/27/2017 Refill [facility] Fawad Geiger MD Refill ([place]) [address] [facility] [address] [place] [address] [place] [address] [place] [address] [phone] (Wo rk) Social History Tobacco Use Types Packs/Day Years Used Date Smoking Tobacco: Never Smokeless Tobacco: Never Alcohol Use Standard Drinks/Week Comments No 0 (1 standard drink = 0.6 oz pure alcoho l) rarely Sex Assigned at Date Recorded Not on file documented as of this encounter Nursing Notes Kaity Naik RN - 05/27/2017 3:03 PM CDT Walked script to alvarado trotter informed. Kaity Naik RN - 05/27/2017 2:44 PM CDT Pt calling, requesting [place]. Pain at 8/10. Another injection scheduled with pain clinic 06/07, then ablation. Pt states she hasn't had a break from her pain. Routing to Juanjo to advise. [place] #30, 1 q6h pended. 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 documented in this encounter Plan of Treatment Not on filedocumented as of this encounter Visit Diagnoses Not on filedocumented in this encounter Care Teams Aircraft Structural Repair Mechanic Relationship Specialty Start Date End Date Needs Pcp, Assignment PCP - General 04/24/14 [place] [address] documented as of this encounter
--- OUTSIDE RECORDS SUMMARY | 2022-09-15 10:31 | XMS_ITS | Encounter Summary ---
:1975 Author Organization [facility] Address [address], [place] [address] Care Team Providers Name Role Phone Needs Pcp, Assignment Primary Care Provider Reason for Visit Reason Onset Date Comments Post Visit Follow Up Phone Call 07/22/2017 Encounter Details Date Type Department Care Team Description 07/22/2017 Telephone [facility] Erin Askew RN Post Visit Follow Up [address] [facility] [address] Phone Call [place], [place] [address] Social History Tobacco Use Types Packs/Day Years Used Date Smoking Tobacco: Never Smokeless Tobacco: Never Alcohol Use Standard Drinks/Week Comments No 0 (1 standard drink = 0.6 oz pure alcoho l) rarely Sex Assigned at Date Recorded Not on file documented as of this encounter Nursing Notes Erin Askew, RN - 07/22/2017 8:34 AM CDT LMTCB post call. documented in this encounter Plan of Treatment Not on filedocumented as of this encounter Visit Diagnoses Not on filedocumented in this encounter Care Teams Litigation Docket Manager Relationship Specialty Start Date End Date Needs Pcp, Assignment PCP - General 04/24/14 [place] [address] documented as of this encounter
--- OUTSIDE RECORDS SUMMARY | 2022-09-15 10:31 | XMS_ITS | Encounter Summary ---
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 [address], Tria [address] [place], [place] [address] Social History Tobacco Use Types [...] PLAN: You will follow up in the [facility] as discussed: call [phone] to arrange an appointment if you do [...] and Anesthesiologist Please contact the Pain Nurse ([phone]) for all medical/procedural questions regarding your care at the [facility] Please contact our Lay Out Worker ([phone]) for all administrative/scheduling questions related to the [...] to home at 1105 via ambulatory with refrigerated national truck driver. documented in this encounter Procedure [...] myelopathy documented in this encounter Care Teams Neurology Stroke Physician Relationship Specialty Start Date End Date Needs Pcp, Assignment PCP - General 04/24/14 [place] [address] documented as of this encounter
--- OUTSIDE RECORDS SUMMARY | 2022-09-15 10:31 | XMS_ITS | Encounter Summary ---
:1975 Author Organization [facility] Address [address], [place] [address] Care Team Providers Name Role Phone Needs Pcp, Assignment Primary Care Provider Reason for Visit Reason Comments Refill Encounter Details Date Type Department Care Team Description 03/09/2018 Refill [facility] Dakota Aparicio MD Refill [address] [place] [address] [phone] (Wo rk) Social History Tobacco Use Types [...] myelopathy documented in this encounter Care Teams Latin Dancer Relationship Specialty Start Date End Date Needs Pcp, Assignment PCP - General 04/24/14 [place] [address] documented as of this encounter
--- OUTSIDE RECORDS SUMMARY | 2022-09-15 10:31 | XMS_ITS | Encounter Summary ---
:1975 Author Organization [facility] Address [address] [address] Care Team Providers Name Role Phone Needs Pcp, Assignment Primary Care Provider Reason for Visit Reason Onset Date Comments Post Visit Follow Up Phone Call 06/08/2017 Encounter Details Date Type Department Care Team Description 06/08/2017 Telephone [facility] Leyla Mendez RN Post Visit Follow Up 8[address] [facility] Phone Call [place], [place] [address] Social History Tobacco Use [...] on filedocumented in this encounter Care Teams Insecticide Mixer Relationship Specialty Start Date End Date Needs Pcp, Assignment PCP - General 04/24/14 [place] [address] documented as of this encounter
--- OUTSIDE RECORDS SUMMARY | 2022-09-15 10:31 | XMS_ITS | Encounter Summary ---
:1975 Author Organization [facility] Address [address] [place] [address] Care Team Providers Name Role Phone Needs Pcp, Assignment Primary Care Provider Reason for Visit Reason Onset Date Comments Pre-procedure Call 07/18/2017 Encounter Details Date Type Department Care Team Description 07/18/2017 Telephone [facility] Anahi Barnes RN Pre-procedure Call 8[address] [place], [place] [address] Social History Tobacco Use Types [...] filedocumented in this encounter Care Teams Director Drug Safety Relationship Specialty Start Date End Date Needs Pcp, Assignment PCP - General 04/24/14 [facility] [place] [address] documented as of this encounter
--- OUTSIDE RECORDS SUMMARY | 2022-09-15 10:31 | XMS_ITS | Encounter Summary ---
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) Dakota Aparicio MD Procedures MR Brain W/WO IV Cont MR Brain WO IV Cont [address] [place] [address] 540 17 Referral ID Status Reason Start Date Expiration Date Visits V isits Requested Authorized [id number] Incomplete 11/01/2017 01/31/2019 1 1 Encounter Details Date Type Department Care Team Description 02/02/2018 [facility] Dakota Aparicio, Dyllan ccipital neuralgia of left side; MRI Spondylosis of cervical region without m yelopathy or radiculopathy [address] [phone] (Wo rk) Social History Tobacco Use Types [...] dose documented in this encounter Care Teams Glass Edger Relationship Specialty Start Date End Date Needs Pcp, Assignment PCP - General 04/24/14 [place] [address] documented as of this encounter
--- OUTSIDE RECORDS SUMMARY | 2022-09-15 10:31 | XMS_ITS | Encounter Summary ---
:1975 Author Organization [facility] [employer] Address [address], [place] [address] Care Team Providers Name Role Phone Needs Pcp, Assignment Primary Care Provider Reason for Referral (Routine) - Closed Specialty Diagnoses / Procedures Referred By Contact Refer red To Contact Diagnoses Occipital neuralgia of left side Dakota Aparicio MD Procedures Dexamethasone [address] [place] [address] 57 Referral ID Status Reason Start Date Expiration Date Visits Requ ested Visits Authorized [id number] Closed 10/11/2017 01/10/2019 1 1 STRAIGHTENER Reason for Visit Reason Comments Follow-up ONB Encounter Details Date Type Department Care Team Description 10/11/2017 Procedure Visit [facility] Dakota Aparicio, Follow-up (ONB) [address] [facility] [place], [place] [address] [place] [address] [place] [address] (Wo rk) Social History Tobacco Use Types Packs/Day Years Used Date Smoking Tobacco: Never Smokeless Tobacco: Never Alcohol Use Standard Drinks/Week Comments No 0 (1 standard drink = 0.6 oz pure alcoho l) rarely Sex Assigned at Date Recorded Not on file documented as of this encounter Last Filed Vital Signs Vital Sign Reading Time Taken Comments Blood Pressure 108/81 10/11/2017 1:14 PM FISH STRAIGHTENER Pulse 81 10/11/2017 1:14 PM FISH STRAIGHTENER Temperature - - Respiratory Rate 18 10/11/2017 1:14 PM FISH STRAIGHTENER Oxygen Saturation - - Inhaled Oxygen Concentration - - Weight - - Height - - Body Mass Index - - documented in this encounter Progress Notes Erin Askew RN - 10/11/2017 1:20 PM CST Patient here for ONB procedure. Patient rates headaches, 7/10 at rest, 7/10 with activity. Pre-op teaching completed, patient verbalizes understanding. 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 Consent per MD. STRAIGHTENER documented in this encounter Procedure Notes Dakota [...] discussed with the patient or responsible democrat. Risks include side effects from steroids, infection, skin breakdown from steroids, injury to the nerve, or increased pain. The patient's/responsible democrat's questions were answered. The patient/responsible democrat appeared to understand and chose to [...] have the patient follow up in clinic. STRAIGHTENER documented in this encounter Plan of Treatment Not on filedocumented as of this encounter Visit Diagnoses Diagnosis Occipital neuralgia of left side - Prima ry documented in this encounter Care Teams Lab Animal Technologist Relationship Specialty Start Date End Date Needs Pcp, Assignment PCP - General 04/24/14 [place] [address] documented as of this encounter
--- OUTSIDE RECORDS SUMMARY | 2022-09-15 10:31 | XMS_ITS | Encounter Summary ---
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 Reviewed NSAID use with patient: [...] on filedocumented in this encounter Care Teams Applications Programmer Relationship Specialty Start Date End Date Needs Pcp, Assignment PCP - General 04/24/14 [place] [address] documented as of this encounter
--- OUTSIDE RECORDS SUMMARY | 2022-09-15 10:31 | XMS_ITS | Encounter Summary ---
:1975 Author Organization [employer] Address [address] [address] Care Team Providers Name Role Phone Needs Pcp, Assignment Primary Care Provider Reason for Visit Reason Comments Follow-up Encounter Details Date Type Department Care Team Description 09/13/2017 Office Visit [facility] Dakota Aparicio MD [address] [place] [address] Occipital headache (Primary Dx); [address] [facility] [address], [facility] Rn Spondylosis of cervical region without m yelopathy or radiculopathy [place], [place] [address] Social History Tobacco Use Types Packs/Day Years Used Date Smoking Tobacco: Never Smokeless Tobacco: Never Alcohol Use Standard Drinks/Week Comments No 0 (1 standard drink = 0.6 oz pure alcoho l) rarely Sex Assigned at Date Recorded Not on file documented as of this encounter Last Filed Vital Signs Vital Sign Reading Time Taken Comments Blood Pressure 109/82 09/13/2017 2:29 PM TIME STUDY ENGINEER Pulse 81 09/13/2017 2:29 PM TIME STUDY ENGINEER Temperature - - Respiratory Rate 18 09/13/2017 2:29 PM TIME STUDY ENGINEER Oxygen Saturation - - Inhaled Oxygen Concentration - - Weight - - Height - - Body Mass Index - - documented in this encounter Patient Instructions Patient InstructionsDakota Aparicio MD - 09/13/2017 2:10 PM CST 1) Occipital nerve block 2) Try elavil again - start at 25mg at night to help with sleep and nerve pain. Can cause sedation. 3) Refills on Musella - goal is to transition off of [...] medications, in ALL states. As laws can guide changer time, one should review the state government website to understand the laws governing driving while on prescription medications, such as opioids. Drugged Driving Defined A [place] motorist can be convicted of a drug [...] schedules I and II--thesubset of drugs that [place] law prohibits for drivers in??any??amount--contains substances such as: ?? heroin, LSD, and ecstasy on schedule I, and ?? methadone, oxycodone, morphine, hydrocodone, codeine, methamphetamine, and cocaine on schedule two. Safe Storage of Opioids It is importance to maintain safe storage of controlled substances, and keep these medications locked and secured from family members or children. STUDY ENGINEER documented in this encounter Progress Notes Erin Askew RN - 09/13/2017 2:10 PM CST Patient here for followup. Patient rates pain in neck, 8/10 at rest, 8/10 with activity. STUDY ENGINEER Lila Garcia RN - 09/13/2017 2:10 PM CST Images from the original note were not included. IT APPLICATION DEVELOPMENT MANAGER for follow up STUDY ENGINEER Dakota Aparicio MD - 09/13/2017 2:10 PM [...] fevers No chills Sometimes feels fuzzy without Musella. No weakness or numbness Pertinent Medications:?? Musella up to 1 tab a day. Topamax [...] such as work ?? Personal review of [place] Prescription Monitoring System,??and any other available, pertinent [...] of cervical region without myelopathy or radiculopathy ([facility]) M47.812 HYDROcodone-acetaminophen (NORCO) 5-325 MG tablet FL [...] pain. Can cause sedation. 3) Refills on Musella - goal is to transition off of these. Can cause rebound headaches. Dakota Aparicio MD 09/13/2017, STUDY ENGINEER documented in this encounter Plan of Treatment Not on filedocumented as of this encounter Visit Diagnoses Diagnosis Occipital headache - Primary Headache Spondylosis of cervical region without m yelopathy or radiculopathy (HRC) Cervical spondylosis without myelopathy documented in this encounter Care Teams Investigative Assistant Relationship Specialty Start Date End Date Needs Pcp, Assignment PCP - General 04/24/14 [place] [address] documented as of this encounter
--- OUTSIDE RECORDS SUMMARY | 2022-09-15 10:31 | XMS_ITS | Encounter Summary ---
:1975 Author Organization [facility] Address [address] [place] [address] Care Team Providers Name Role Phone Needs [...] MR Cervical Spine WO IV Cont [address] [place], [place] [address] Referral ID Status Reason Start Date Expiration Date Visits V isits Requested Authorized [id number] Incomplete 11/01/2017 01/31/2019 1 1 RATIONS EXPERT Procedure/Equipment (Routine) - Incomplete Specialty Diagnoses / Procedures Referred By Contact Refer red To Contact Diagnoses Occipital neuralgia of left side 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) Dakota Aparicio MD Procedures MR Brain W/WO IV Cont MR Brain WO IV Cont [address] [place], [place] [address] Referral ID Status Reason Start Date Expiration Date Visits V isits Requested Authorized [id number] Incomplete 11/01/2017 01/31/2019 1 1 RATIONS EXPERT Consult/Transfer Care (Routine) - Discharged Specialty Diagnoses / Procedures Referred By Contact Refer red To Contact Diagnoses Occipital neuralgia of left side 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) Occipital headache Dakota Aparicio MD [address] [place] [address] Referral ID Status Reason Start Date Expiration Date Visits V isits Requested Authorized [id number] Discharged 11/01/2017 01/31/2019 1 1 Scheduling Instructions Your physician has recommended that you make an appointment with [facility]). To schedule [facility], please call [phone]. [facility] specializes in the non-surgical liz atment of chronic neck and back pain. At [facility], physicians and physical therapists work with patients to strengthen and recondition muscles that support the spi ne, providing lasting pain relief. [facility] is a participating provider for most insuranc e plans. For specific coverage questions, please call the Member Services departme nt of your insurance plan. RATIONS EXPERT Consult/Transfer Care (Routine) - Closed Specialty Diagnoses / Procedures Referred By Contact Refer red To Contact Diagnoses Occipital neuralgia of left side 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) Dakota Aparicio MD [address] [place] [address] Referral ID Status Reason Start Date Expiration Date Visits Requ ested Visits Authorized [id number] Closed 11/01/2017 01/31/2019 1 1 Scheduling Instructions Your provider has recommended an appoint ment with Merlyn Barron. You may call [phone] to schedule your appoi ntment. If you do not schedule an appointment within the next 1 to 3 business days, we will call you to help arrange your appointment. We suggest you call your [employer] insurance company about your coverage and benefits for this appointment. RATIONS EXPERT Reason for Visit Reason Comments Follow-up Encounter Details Date Type Department Care Team Description 11/01/2017 Office Visit [facility] Dakota Aparicio MD [address] [place] [address] Occipital neuralgia of left side (Primar y Dx); [address], Tria Rad Rn Spondylosis of cervical region without m yelopathy or radiculopathy; [place], [place] [address] Occipital headache [phone] Social History Tobacco Use Types Packs/Day Years Used Date Smoking Tobacco: Never Smokeless Tobacco: Never Alcohol Use Standard Drinks/Week Comments No 0 (1 standard drink = 0.6 oz pure alcoho l) rarely Sex Assigned at Date Recorded Not on file documented as of this encounter Last Filed Vital Signs Vital Sign Reading Time Taken Comments Blood Pressure 139/83 11/01/2017 12:15 PM ALTERATIONS EXPERT Pulse 89 11/01/2017 12:15 PM ALTERATIONS EXPERT Temperature - - Respiratory Rate 18 11/01/2017 12:15 PM ALTERATIONS EXPERT Oxygen Saturation - - Inhaled Oxygen Concentration [...] referral 5. Follow-up in 2 weeks 6. Ambridge 5/325mg - take 1/2 tab every other day 7. Future considerations: pain psychology RATIONS EXPERT documented in this encounter Progress Notes Dakota [...] month, and a half a tab of Ambridge about every other day. Whenshe takes these medications, her pain is controlled. Overall, she feels that her symptoms are chronic yet stable. Taking the Topamax does help with her headaches. ROS: No radiation down her arms No fevers No chills Sometimes feels fuzzy without Ambridge. No weakness or numbness No neurological deficits No weakness slurred speech or confusion ? Pertinent Medications:?? Ambridge up to 1/2 tab a day - [...] such as work ?? Personal review of [place] Prescription Monitoring System,??and any other available, pertinent [...] of cervical region without myelopathy or radiculopathy ([facility]) M47.812 MR Cervical Spine WO [...] referral 5. Follow-up in 2 weeks 6. Ambridge 5/325mg - take 1/2 tab every other day Dakota Aparicio MD 11/01/2017, TIME SPENT: 40 minutes including [id number] time counseling her about her diagnosis and treatment options DECISION-MAKING: The level of decision-making in this case is high/complex due to the complexity of medical problems, acute/chronic pain, opioid analgesia issues, and behavioral factors. RATIONS EXPERT Erin Askew RN - 11/01/2017 12:10 PM CST Patient here for follow up. Patient rates pain in neck, 5/10 at rest, 6/10 with activity. RATIONS EXPERT Erin Askew RN - 11/01/2017 12:10 PM CST Images from the original note were not included. DIRECTOR CONSUMER AFFAIRS for today's follow up RATIONS EXPERT documented in this encounter Plan of Treatment Scheduled Referrals Name Type Priority Associated Diagnoses [facility] Referral Routine Occipital neuralgia of Order [...] myelopathy documented in this encounter Care Teams Outfitter Cabin Relationship Specialty Start Date End Date Needs Pcp, Assignment PCP - General 04/24/14 [place] [address] documented as of this encounter
--- OUTSIDE RECORDS SUMMARY | 2022-09-15 10:31 | XMS_ITS | Encounter Summary ---
:1975 Author Organization [facility] Address [address] [place] [address] Care Team Providers Name Role Phone Needs Pcp, Assignment Primary Care Provider Reason for Visit Reason Comments PAIN, HEAD Encounter Details Date Type Department Care Team Description 09/07/2017 Nurse Triage Careline Unassigned, Provider PAIN, HEAD [address] [place], [place] [address] [place] [address] Social History Tobacco Use Types Packs/Day Years [...] unable to do any normal activities Severe. 9-10/10. Pt crying. 5. RECURRENT SYMPTOM: Have you [...] pain, sore throat, coldsymptoms) Nausea. Protocols used: [id number] Malu Arnett RN - 09/07/2017 7:08 PM CST Verified patient identity using three identifiers: Yes per Pt. Situation/Background (brief explanation of current symptoms/situation): Neck pain causing a severe headache not controlled with Hawthorne and Imitrex. nerve ablation done apx 8 weeks ago. No improvement in symptoms. Yesterday noted an increase of pain/ headache in the occipital area. It feels like my head will pop off. Pt states she has to work. Wondering if she should go to the ED tonight. Denies numbness, weakness or vision changes. Took 1/2 of a Hawthorne and an Imitrex apx 4 hours ago. [...] clinic is the patient normally seen at? Merlyn Espinoza ([facility]) [facility] Describe the reason for call/symptoms (if pain, include location): pt states she had a nerve ablation, pain has been really intense in neck up into head since yesterday How long have you been experiencing the symptom(s): since yesterday Plan:Caller transferred directly to CareLine nurse. OND SIZER AND GRADER documented in this encounter Plan of Treatment Not on filedocumented as of this encounter Visit Diagnoses Not on filedocumented in this encounter Care Teams Second Miller Relationship Specialty Start Date End Date Needs Pcp, Assignment PCP - General 04/24/14 [place] [address] documented as of this encounter
--- OUTSIDE RECORDS SUMMARY | 2022-09-15 10:31 | XMS_ITS | Encounter Summary ---
:1975 Author Organization [facility] Address [address], [place] [address] Care Team Providers Name Role Phone Needs Pcp, Assignment Primary Care Provider Reason for Visit Reason Comments Refill Encounter Details Date Type Department Care Team Description 12/13/2017 Refill [facility] Dakota Aparicio MD Refill [address] [place] [address] [phone] (Wo rk) Social History Tobacco Use Types [...] myelopathy documented in this encounter Care Teams Customer Complaint Clerk Relationship Specialty Start Date End Date Needs Pcp, Assignment PCP - General 04/24/14 [place] [address] documented as of this encounter
--- OUTSIDE RECORDS SUMMARY | 2022-09-15 10:31 | XMS_ITS | Encounter Summary ---
:1975 Author Organization [employer] Address [address] [address] Care Team Providers Name Role Phone Needs Pcp, Assignment Primary Care Provider Reason for Visit Reason Comments [facility] Encounter Details Date Type Department Care Team Description 03/08/2018 Telephone [facility] Dakota Aparicio MD [facility] [id number] [address] [place], [place] [phone] (Wo rk) Social History Tobacco Use Types [...] psychologist. Second, she states that the wayher Gregory refill was written, it cannot be refilled until 03/19. Please advise, thanks. documented in this encounter Plan of Treatment Not on filedocumented as of this encounter Visit Diagnoses Not on filedocumented in this encounter Care Teams Car Inspection And Repair Manager Relationship Specialty Start Date End Date Needs Pcp, Assignment PCP - General 04/24/14 [place] [address] documented as of this encounter
--- OUTSIDE RECORDS SUMMARY | 2022-09-15 10:31 | XMS_ITS | Encounter Summary ---
:1975 Author Organization [facility] Address [address] [address] Care Team Providers Name Role Phone Needs Pcp, Assignment Primary Care Provider Reason for Visit Reason Comments Follow-up Encounter Details Date Type Department Care Team Description 08/04/2017 Office Visit [facility] Dakota Aparicio MD [address] [place] [address] Spondylosis of cervical [address], Tria Rad region [place], [place] [address] radiculopathy [phone] Social History Tobacco Use Types Packs/Day Years [...] neck pain - can cause sedation. 4) Edgeley 5/325mg - take up to 1 tab [...] in ALL states. As laws can change control manager time, one should review the state [...] from the original note were not included. CARBONATING STONE CLEANER for today's follow up Dakota Aparicio MD [...] attributes this to starting Topamax. Pertinent Medications: Darline was taking 2 tabs a day - [...] such as work ?? Personal review of [place] Prescription Monitoring System, and any other available, [...] cervical region without myelopathy or radiculopathy ([facility]) M47.812 HYDROcodone-acetaminophen (NORCO) 5-325 MG tablet topiramate (TOPAMAX) 25 MG tablet tiZANidine (ZANAFLEX) 2 MG tablet Status post cervical RFA left side TON C 34. I would give this several more weeks to recover. Today we discussed medication options for her symptomatology. Risks and side effects were discussed. I did refill her Edgeley, gave her a three- week supply until she follows up with me in clinic. Hopefully by that time she will be improving in her symptoms. Plan: 1) Topamax - increase to 75mg at night. 2) Voltaren gel 1% - apply up to 4 times a day 3) Tizanidine 2-4mg twice a day as needed for neck pain - can cause sedation. 4) Edgeley 5/325mg - take up to 1 tab [...] myelopathy documented in this encounter Care Teams Diversified Crops I Farmworker Relationship Specialty Start Date End Date Needs Pcp, Assignment PCP - General 04/24/14 [place] [address] documented as of this encounter
--- OUTSIDE RECORDS SUMMARY | 2022-09-15 10:31 | XMS_ITS | Encounter Summary ---
:1975 Author Organization [facility] Address [address], [place] [address] Care Team Providers Name Role Phone Needs Pcp, Assignment Primary Care Provider Reason for Visit Reason Comments Procedure Procedure/Equipment (Routine) - Incomplete Specialty Diagnoses / Procedures Referred By Contact Refer red To Contact Diagnoses 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) Occipital neuralgia of left side Dakota Aparicio MD Procedures FL C Arm [address] [facility] [address] [place] [address] Referral ID Status Reason Start Date Expiration Date Visits V isits Requested Authorized [id number] Incomplete 03/07/2018 06/06/2019 1 1 Encounter Details Date Type Department Care Team Description 03/28/2018 Procedure Visit [facility] Dakota Aparicio MD [address] [place] [address] Procedure [address] [facility] [address], Tria Rad [place], [place] [address] Social History Tobacco Use Types [...] the [facility] as discussed: call [phone] to arrange an appointment if you do [...] and Anesthesiologist Please contact the Pain Nurse ([phone]) for all medical/procedural questions regarding your care at the [facility] Please contact our Microbiology Quality Control Technician ([phone]) for all administrative/scheduling questions related to the [...] to home at 1332 via ambulatory with parts delivery driver partner. documented in this encounter Procedure Notes [...] documented in this encounter Care Teams Commercial Center Manager Relationship Specialty Start Date End Date Needs Pcp, Assignment PCP - General 04/24/14 [place] [address] documented as of this encounter
--- OUTSIDE RECORDS SUMMARY | 2022-09-15 10:31 | XMS_ITS | Encounter Summary ---
:1975 Author Organization [facility] Address [address] [place] [address] Care Team Providers Name Role Phone Needs Pcp, Assignment Primary Care Provider Reason for Visit Reason Comments Pre-procedure Call Encounter Details Date Type Department Care Team Description 03/22/2018 Telephone [facility] Erin Askew RN Pre-procedure Call [address] [place], [place] [address] Social History Tobacco Use Types [...] on filedocumented in this encounter Care Teams Linux System Administrator Relationship Specialty Start Date End Date Needs Pcp, Assignment PCP - General 04/24/14 [place] [address] documented as of this encounter
--- OUTSIDE RECORDS SUMMARY | 2022-09-15 10:31 | XMS_ITS | Encounter Summary ---
:1975 Author Organization [employer] Address [address] [place] [address] Care Team Providers Name Role Phone Needs Pcp, Assignment Primary Care Provider Reason for Visit Reason Onset Date Comments Pre-procedure Call 05/19/2017 Encounter Details Date Type Department Care Team Description 05/19/2017 Telephone [facility] Lucy Albrecht, Pre-procedure Call [address] [facility] [place], [place] [address] Social History Tobacco Use Types [...] Allergy (Cervicals must be pre-medicated) Must have full service vending driver home. Reviewed NSAID use with patient: [...] on filedocumented in this encounter Care Teams Field Map Technician Relationship Specialty Start Date End Date Needs Pcp, Assignment PCP - General 04/24/14 [place] [address] documented as of this encounter
--- OUTSIDE RECORDS SUMMARY | 2022-09-15 10:32 | XMS_ITS | Encounter Summary ---
:1975 Author Organization [facility] Address [address] [place] [address] Care Team Providers Name Role Phone Needs Pcp, Assignment Primary Care Provider Reason for Visit Reason Onset Date Comments Refill 03/08/2017 Encounter Details Date Type Department Care Team Description 03/08/2017 Refill [facility] Fawad Geiger MD Refill [address] [place] [address] [place], [place] [address] [place] [address] [phone] (Wo rk) Social History Tobacco Use Types Packs/Day Years Used Date Smoking Tobacco: Never Smokeless Tobacco: Never Alcohol Use Standard Drinks/Week Comments No 0 (1 standard drink = 0.6 oz pure alcoho l) Sex Assigned at Date Recorded Not on file documented as of this encounter Nursing Notes Yolanda Cali RN - 03/08/2017 4:15 PM CDT Medication approved and signed by provider. At [facility] desk (pt picking up) Patient notified via . Yolanda Cali RN - 03/08/2017 1:42 PM CDT Juanjo patient: Requesting refill on [place]. Last refill was 40# on 02/16/17. Scheduled [...] on filedocumented in this encounter Care Teams Front Sight Attacher Relationship Specialty Start Date End Date Needs Pcp, Assignment PCP - General 04/24/14 [place] [address] documented as of this encounter
--- OUTSIDE RECORDS SUMMARY | 2022-09-15 10:32 | XMS_ITS | Encounter Summary ---
:1975 Author Organization [facility] Address [address] [address] Care Team Providers Name Role Phone Needs Pcp, Assignment Primary Care Provider Reason for Referral Specialty Diagnoses / Procedures Referred By Contact Refer red To Contact Daniel Chang PA-C [address] [place], [place] [address] Referral ID Status Reason Start Date Expiration Date Visits Requ ested Visits Authorized CONDITIONING INSTALLER SUPERVISOR Reason for Visit Reason Comments CONSULT Encounter Details Date Type Department Care Team Description 12/26/2015 Initial Consult [facility] Dakota Aparicio Myofascial pain (Primary Dx) ; [address] Hector Bowers MD Cervical radiculopathy [address] [address] [phone] Social History Tobacco Use Types Packs/Day Years Used Date Smoking Tobacco: Never Smokeless Tobacco: Never Alcohol Use Standard Drinks/Week Comments No 0 (1 standard drink = 0.6 oz pure alcoho l) Sex Assigned at Date Recorded Not on file documented as of this encounter Last Filed Vital Signs Vital Sign Reading Time Taken Comments Blood Pressure 153/86 12/26/2015 2:53 PM AIR CONDITIONING INSTALLER SUPERVISOR Pulse 90 12/26/2015 2:53 PM AIR CONDITIONING INSTALLER SUPERVISOR Temperature - - Respiratory Rate 18 12/26/2015 2:53 PM AIR CONDITIONING INSTALLER SUPERVISOR Oxygen Saturation - - Inhaled Oxygen Concentration - - Weight 75.3 kg (166 lb) 12/26/2015 2:53 PM AIR CONDITIONING INSTALLER SUPERVISOR Height 182.9 cm (6' 0.01) 12/26/2015 2:53 PM AIR CONDITIONING INSTALLER SUPERVISOR Body Mass Index 22.51 12/26/2015 2:53 PM AIR CONDITIONING INSTALLER SUPERVISOR documented in this encounter Patient Instructions Patient [...] on this medication. 4) Small amount of Franklin 5/325mg for severe pain flares #15 tabs. [...] 60mg daily after 7 days. For the Franklin and Robaxin - want to shy away [...] stable opioid usage Pain Physician. (2012 Joe;15(3 Suppl):OX282-77) This article would argue one could drive safely with stable doses of such medications, but only after reaching stable doses. The same may be true with other potentiallysedating medications. Regardless, in some states, it is illegal to drive with any amount of an impairing drug; this includes [place] and [place]. The presence of such metabolites could lead to an in toxication charge. Drivers could therefore be held liable for injuries and damages when operating machinery while taking sedating medications. It is ALWAYS illegal to drive while impaired by any substance, including opioids and benzodiazepines, in ALL states. As laws can guide [...] not tolerate it or experience side effects. CONDITIONING INSTALLER SUPERVISOR documented in this encounter Progress Notes Dakota Aparicio MD - 12/26/2015 4:21 PM CST Images from the original note were not included. Interventional Pain Consult Note Chief complaint: Chief Complaint Patient presents with ??? Consult neck pain radiating into left arm Referring provider: Batsheva HPI: Vivek Echeverria is a pleasant 40 y.o. female [...] level of function. ?? Personal review of [place] Prescription Monitoring System, and any other available, [...] general well being. 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 She [...] provide a small refill for robaxin and Franklin. Risks were againdiscussed and I instructed her [...] on this medication. 4) Small amount of Franklin 5/325mg for severe pain flares #15 tabs. [...] Dakota Aparicio M.D. Anesthesia and Interventional Pain CONDITIONING INSTALLER SUPERVISOR Erin Askew RN - 12/26/2015 2:56 PM CST Patient here for consult procedure. Patient rates pain in neck radiating into left arm, 6/10 at rest, 6/10 with activity. CONDITIONING INSTALLER SUPERVISOR Anahi Barnes RN - 12/26/2015 2:41 PM CST Images from the original note were not included. TERMITE INSPECTOR for consult CONDITIONING INSTALLER SUPERVISOR documented in this encounter Plan of Treatment Scheduled Referrals Name Type Priority Associated Diagnoses Order S chedule Pain-Medical Adult Referral Routine Cervical radiculopathy Ordered: 12/26/2015, Consult [facility] Expires: 2015 documented as of this encounter Visit Diagnoses Diagnosis Myofascial pain - Primary Mylagia and myositis, unspecified Cervical radiculopathy Brachial neuritis or radiculitis nos documented in this encounter Care Teams Regional Sales Leader Relationship Specialty Start Date End Date Needs Pcp, Assignment PCP - General 04/24/14 [place] [address] documented as of this encounter
--- OUTSIDE RECORDS SUMMARY | 2022-09-15 10:32 | XMS_ITS | Encounter Summary ---
:1975 Author Organization [facility] Address [address], [place] [address] Care Team Providers Name Role Phone Needs Pcp, Assignment Primary Care Provider Encounter Details Date Type Department Care Team Description 12/01/2016 Notes/Orders [facility] Fawad Geiger MD Neck pain (Primary Urgent Care [address] [place] [address] Dr Dx) [address] [place], [place] [phone] (Wo rk) Social History Tobacco Use Types [...] Cervicalgia documented in this encounter Care Teams Cloth Bin Packer Relationship Specialty Start Date End Date Needs Pcp, Assignment PCP - General 04/24/14 [place] [address] documented as of this encounter
--- OUTSIDE RECORDS SUMMARY | 2022-09-15 10:32 | XMS_ITS | Encounter Summary ---
:1975 Author Organization [facility] Address [address] [place] [address] Care Team Providers Name Role Phone Needs Pcp, Assignment Primary Care Provider Reason for Visit Reason Comments Neck Pain Encounter Details Date Type Department Care Team Description 11/18/2016 Surgical Consult [facility] Fawad Geiger Nec k pain (Primary Dx); CENTER Chronic intractable headache, unspecifie d headache type; [address] [place] [address] [place] [address] [place] [address] [phone] Social History Tobacco Use Types Packs/Day Years [...] 180.3 cm (5' 11) 11/18/2016 1:[address] WORKER Body Mass Index - - documented in this encounter Patient Instructions Patient InstructionsPhiJaylene villalpando ATC - 11/18/2016 2:[address] Fawad Geiger MD Orthopaedic Spine Please contact the Spine Nurse for all medical related questions at [phone] Office Hours: and Tuesday Medication Requests: Prescriptions are not filled on Weekends or on Weekdays after 3:00PM For all medication refills: Request a refill using [email or web address] or contact your Pharmacy Metal Spray Operator: Juli Gould Please contact Juli for all administrative questions at [phone] Dr. Geiger will call you with lab results Thank you for enrolling in [email or web address]. Please follow the instructions below to securely access your online medical record. [email or web address] allows you to send messages to your doctor, view your test results, renewyour prescriptions, schedule appointments, and more. How Do I Sign Up? 1. In your Internet browser, go to [email or web address] 2. Click on the Enter activation code link under the New User? section. You will see the Activate your account! page. 3. Enter your activation code exactly as it appears below. You will not need to use this code after you???ve completed the sign-up process. If you do not sign up before the expiration date, you must request a new code. Activation Code: [email or web address] Expires: 12/18/2016 2:34 PM 4. Enter your last name and date of (mm/dd/yyyy) as indicated, then click Continue. You will be taken to the Let's set up your account page. 5. Create a username. This will be your [email or web address] login ID and cannot be changed, so think of one thatis secure and easy to remember. 6. Create a password. You can change your password at any time. 7. Enter your e-mail address. You will receive e-mail notification when new information is availablein [email or web address]. 8. Select your Security Questions and enter your answers. These can be used at a later time if you forget your password. 9. Check the box to accept the terms and conditions. Click Create your account. You can now view your medical record. Additional Information If you have questions, you can call [phone] to talk to our magnetic.[email or web address] staff. Remember, [email or web address] is NOT to be used for urgent needs. For medical emergencies, dial 911. ET WORKER documented in this encounter Progress Notes Fawad Geiger MD - 11/18/2016 7:40 AM CST [facility] Orthopaedic [place] Consultation 11/18/2016 Chief Complaint: Neck Pain History [...] Disease. 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 Nonsmoker. No alcohol use. She is a nonsmoker. The General Medical History Form dated 11/18/2016 was updated and reviewed with the patient; this is located in [facility] in [facility]. Physical Exam: Height 1.803 m (5' 11). [...] 11/18/2016 at 7:40 AM. Fawad Geiger MD ET WORKER documented in this encounter Plan of Treatment Not on filedocumented as of this encounter Procedures Procedure Name Priority Date/Time Associated Diagnosis Comme nts TSH AND FREE T4 Routine 11/18/2016 2:57 PM Result s for this (FRT4 IF TSH STREET WORKER procedure are i n ABNORM) the results section. C-REACTIVE PROTEIN Routine 11/18/2016 2:57 PM Neck pain Res ults for this STREET WORKER procedure are i n the results section. ESR Routine 11/18/2016 2:57 PM Neck pain Results f or this STREET WORKER procedure are i n the results section. EXTRA SERUM Routine 11/18/2016 2:45 PM Results f or this SEPARATOR TUBE STREET WORKER procedure are in (YELLOW) the results section. documented in this encounter Results TSH And Free T4 (FRT4 If TSH Abnorm) (11/18/2016 2:[address] WORKER) athologist Signature Thyroid 2.93 0.20 - PN SOFT Stimulating 4.50 Hormone uIU/mL Specimen Anatomical Collection Method Collection Time Receive d Time (Source) Location / / Volume Laterality 11/18/2016 2:57 PM 7 4:[address]RE[address] WORKER Narrative PN SOFT - 11/18/2016 5:[address] WORKER Performed at [facility], [address] [place] [address] CLIA number [id number] Fawad Geiger MD LAB_1 Performing Organization Address City/State/[facility] Phon e Number PN SOFT [address] [place] [address] (CRP) C - Reactive Protein (11/18/2016 2:[address] WORKER) P athologist Signature CRP <0.5 0.0 - 0.5 PN SOFT mg/dL Specimen Anatomical Collection Method Collection Time Receive d Time (Source) Location / / Volume Laterality 11/18/2016 2:57 PM 7 4:[address] WORK[address] WORKER Narrative PN SOFT - 11/18/2016 4:[address] WORKER Performed at [address] [address] CLIA number [id number] Fawad Geiger MD LAB_1 Performing Organization Address [facility] Phon e Number PN SOFT [address] [place] [address] Sedimentation Rate (11/18/2016 2:[address] WORKER) Analysis Performed At [facility] Signature Sedimentation Rate 7 0 - 20 PN SOFT mm/hr Specimen Anatomical Collection Method Collection Time Receive d Time (Source) Location / / Volume Laterality 11/18/2016 2:57 PM 7 4:[address] WORK[address] WORKER Narrative PN SOFT - 11/18/2016 4:[address] WORKER Performed at [address] [address] CLIA number [id number] Fawad Geiger MD LAB_1 Performing Organization Address [facility] Phon e Number PN SOFT [address] [place] [address] Extra Serum Separator Tube (yellow) (11/18/2016 2:[address] WORKER) P athologist Signature Extra SST Top Drawn PN SOFT Drawn Specimen Anatomical Collection Method Collection Time Receive d Time (Source) Location / / Volume Laterality 11/18/2016 2:45 PM 7 4:[address] WORKER Narrative PN SOFT - 11/18/2016 4:[address] WORKER Performed at [address] [place] [address] CLIA number [id number] Fawad Geiger MD LAB_1 Performing Organization Address City/State/ZIP Code Phon e Number PN SOFT [address] [place] [address] documented in this encounter Visit Diagnoses Diagnosis Neck pain - Primary Cervicalgia Chronic intractable headache, unspecifie d headache type Myalgia Mylagia and myositis, unspecified documented in this encounter Care Teams Sander And Polisher Relationship Specialty Start Date End Date Needs Pcp, Assignment PCP - General 04/24/14 [place] [address] documented as of this encounter
--- OUTSIDE RECORDS SUMMARY | 2022-09-15 10:32 | XMS_ITS | Encounter Summary ---
:1975 Author [facility] Address [address], [place] [address] Care Team Providers Name Role Phone Needs Pcp, Assignment Primary Care Provider Reason for Referral Consult/Transfer Care (Routine) - Closed Specialty Diagnoses / Procedures Referred By Contact Refer red To Contact Diagnoses Neck pain Fawad Geiger MD [address] [facility] [place] [address] Referral ID Status Reason Start Date Expiration Date Visits Requ ested Visits Authorized [id number] Closed 02/16/2017 05/18/2018 1 1 Scheduling Instructions Your provider has recommended an appoint ment with [facility]. You may call [phone] to schedule your appoi ntment. If you do not schedule an appointment within the next 1 to 3 business days, we will call you to help arrange your appointment. We suggest you call your [facility] insurance company about your coverage and benefits for this appointment. Consult/Transfer Care (Routine) - Closed Specialty Diagnoses / Procedures Referred By Contact Refer red To Contact Diagnoses Neck pain Fawad Geiger MD [address] [facility] [address] [place] [address] Referral ID Status Reason Start Date Expiration Date Visits Requ ested Visits Authorized [id number] Closed 02/16/2017 05/18/2018 1 1 Scheduling Instructions Your provider has recommended an appoint ment with [facility]. You may call [phone] to schedule your appoi ntment. If you do not schedule an appointment within the next 1 to 3 business days, we will call you to help arrange your appointment. We suggest you call your [employer] insurance company about your coverage and benefits for this appointment. Encounter Details Date Type Department Care Team Description 02/16/2017 Notes/Orders [facility] Fawad Geiger MD Neck pain (Primary CENTER [address] [place] [address] Dr Dx) [address] [place], [place] [address] [phone] (Wo rk) Social History Tobacco Use Types [...] Cervicalgia documented in this encounter Care Teams Corporate Compliance Manager Relationship Specialty Start Date End Date Needs Pcp, Assignment PCP - General 04/24/14 [place] [address] documented as of this encounter
--- OUTSIDE RECORDS SUMMARY | 2022-09-15 10:32 | XMS_ITS | Encounter Summary ---
:1975 Author Organization [facility] Address [address], [place] [address] Care Team Providers Name Role Phone Needs Pcp, Assignment Primary Care Provider Reason for Visit Reason Onset Date Comments Refill 01/12/2017 Encounter Details Date Type Department Care Team Description 01/12/2017 Refill [facility] HERNAN TER Fawad Geiger MD Refill [address] [facility] [address] [facility] [place] [address] [place] [address] [phone] (Wo rk) Social History Tobacco Use Types [...] on filedocumented in this encounter Care Teams Rn Child Relationship Specialty Start Date End Date Needs Pcp, Assignment PCP - General 04/24/14 [place] [address] documented as of this encounter
--- OUTSIDE RECORDS SUMMARY | 2022-09-15 10:32 | XMS_ITS | Encounter Summary ---
:1975 Author Organization [email or web address] Address [address] [address] Care Team Providers Name Role Phone Needs Pcp, Assignment Primary Care Provider Reason for Visit Reason Onset Date Comments Pre-procedure Call 04/11/2017 Encounter Details Date Type Department Care Team Description 04/11/2017 Telephone [facility] Erin Askew RN Pre-procedure Call [address] [place], [place] [address] Social History Tobacco Use Types Packs/Day Years Used Date Smoking Tobacco: Never Smokeless Tobacco: Never Alcohol Use Standard Drinks/Week Comments No 0 (1 standard drink = 0.6 oz pure alcoho l) Sex Assigned at Date Recorded Not on file documented as of this encounter Nursing Notes Erin Askew, RN - 04/11/2017 8:59 AM CDT Pre-procedure instructions called to Vivek Reviewed Medical & Surgical History & information below: Arrival Time: 1110 Non sedation pt: Nothing 2 hours prior to procedure, Light meal ok prior to that. Encouraged pt to take prescription medications with a sip of water as usual in am. Must have emergency detail driver home. Reminder if female age 50 or less will need a UPT if no hysterectomy. Wear loose fitting, comfortable clothing, no valuables (jewelry, etc). Bring photo ID & medical cards. documented in this encounter Plan of Treatment Not on filedocumented as of this encounter Visit Diagnoses Not on filedocumented in this encounter Care Teams Paste Maker Relationship Specialty Start Date End Date Needs Pcp, Assignment PCP - General 04/24/14 [place] [address] documented as of this encounter
--- OUTSIDE RECORDS SUMMARY | 2022-09-15 10:32 | XMS_ITS | Encounter Summary ---
:1975 Author Organization [facility] Address [address] [place] [address] Care Team Providers Name Role Phone Needs Pcp, Assignment Primary Care Provider Reason for Visit Reason Comments Procedure neck pain Procedure/Equipment (Routine) - Incomplete Specialty Diagnoses / Procedures Referred By Contact Refer red To Contact Diagnoses Cervical radiculopathy Fawad Geiger MD Procedures FL C Arm 20 Pain Management [address] [place] [address] [address] [place] [address] Referral ID Status Reason Start Date Expiration Date Visits V isits Requested Authorized [id number] Incomplete 11/25/2016 02/24/2018 1 1 Encounter Details Date Type Department Care Team Description 01/12/2017 Procedure Visit [facility] Fawad Geiger MD [address] [facility] [place] [id number] Procedure (neck [address] [facility] Dakota Aparicio MD [address] [place] [address] pain) [place] 3, Tria Rad Rn 959251 Social History Tobacco Use Types Packs/Day Years [...] Dr. Fawad Geiger in 10-14 days; call [phone] to schedule an appointment if you do not already have one. Facet Injection Post-Procedure Instructions: ?? Rest today, you may resume your normal activities tomorrow (Physical Therapy & career education teacher can also be resumed next day). ?? [...] and Anesthesiologist Please contact the Pain Nurse ([phone]) for all medical/procedural questions regarding your care at the [facility] Pain Program Please contact Cary ([phone]) for all administrative/scheduling questions related to the [facility] Pain Program Medication Requests: Prescriptions [...] to home at 1159 via ambulatory with wedding transportation driver. Erin Askew RN - 01/12/2017 11:15 AM CDT Patient here for cervical facet injection procedure. Patient rates pain in neck, 8/10 at rest, 8/10 with activity. Verified NPO status. Pre-op teaching completed, patient verbalizes understanding. Confirmed pt has wedding transportation driver home. Consent per MD. Patient states [...] 8 /10 VAS 10 minutes After Injection: 2/10 Informed Consent: The patient???s condition and proposed [...] increments. The needle was then retracted approximately half-way and the needle track was flushed with [...] obtained from the local anethetic but no intermodal owner operator truck driver relief from the steroid, a diagnostic medial [...] nos documented in this encounter Care Teams Independent Living Instructor Relationship Specialty Start Date End Date Needs Pcp, Assignment PCP - General 04/24/14 [place] [address] documented as of this encounter
--- OUTSIDE RECORDS SUMMARY | 2022-09-15 10:32 | XMS_ITS | Encounter Summary ---
:1975 Author Organization [facility] Address [address] [place] [address] Care Team Providers Name Role Phone Needs Pcp, Assignment Primary Care Provider Encounter Details Date Type Department Care Team Description 02/16/2016 Notes/Orders CODING DEPT ONLY 5050 Needs Pcp, Assignment [facility]ILY [facility] [place] S[place] [facility] [place] [address] Social History Tobacco Use Types Packs/Day Years [...] on filedocumented in this encounter Care Teams Safe Deposit Box Rental Clerk Relationship Specialty Start Date End Date Needs Pcp, Assignment PCP - General 04/24/14 [place] [address] documented as of this encounter
--- OUTSIDE RECORDS SUMMARY | 2022-09-15 10:32 | XMS_ITS | Encounter Summary ---
:1975 Author Organization [employer] Address [address], [place] [address] Care Team Providers Name Role Phone Needs Pcp, Assignment Primary Care Provider Reason for Visit Reason Onset Date Comments Pre-procedure Call 03/29/2017 Encounter Details Date Type Department Care Team Description 03/29/2017 Telephone [facility] Erin Askew RN Pre-procedure Call [address] [place], [place] [address] Social History Tobacco Use Types Packs/Day Years Used Date Smoking Tobacco: Never Smokeless Tobacco: Never Alcohol Use Standard Drinks/Week Comments No 0 (1 standard drink = 0.6 oz pure alcoho l) Sex Assigned at Date Recorded Not on file documented as of this encounter Nursing Notes Erin Askew RN - 03/29/2017 2:47 PM CDT Pre-procedure instructions called to Vivek Reviewed Medical & Surgical History & information below: Arrival Time: 0750 Non sedation pt: Nothing 2 hours prior to procedure, Light meal ok prior to that. Encouraged pt to take prescription medications with a sip of water as usual in am. Must have truck driver salesperson home. Reviewed NSAID use with patient: (Cervical [...] on filedocumented in this encounter Care Teams Curator Herbarium Relationship Specialty Start Date End Date Needs Pcp, Assignment PCP - General 04/24/14 [place] [address] documented as of this encounter
--- OUTSIDE RECORDS SUMMARY | 2022-09-15 10:32 | XMS_ITS | Encounter Summary ---
:1975 Author Organization [email or web address] Address [address], [place] [address] Care Team Providers Name Role Phone Needs Pcp, Assignment Primary Care Provider Reason for Visit Reason Onset Date Comments Refill 02/15/2017 Encounter Details Date Type Department Care Team Description 02/15/2017 Refill [facility] TER Fawad Geiger MD Refill [address] [place], [place] [address] [place] [address] [phone] (Wo rk) Social History Tobacco Use Types Packs/Day Years Used Date Smoking Tobacco: Never Smokeless Tobacco: Never Alcohol Use Standard Drinks/Week Comments No 0 (1 standard drink = 0.6 oz pure alcoho l) Sex Assigned at Date Recorded Not on file documented as of this encounter Nursing Notes Negar Hinton RN - 02/16/2017 9:31 AM CDT Spoke to pt, requesting to picking table worker Rx today to health informatics advisor after work. HYDROcodone-acetaminophen (NORCO) 5-325 MG tablet 40 Tab 0 02/16/2017 No ?? Sig - Route: Take 1-2 Tabs by mouth every 6 hours as needed for Pain. - Oral ?? Class: Print ?? Rigoberto Roman RN - 02/15/2017 11:48 AM CDT Pt [...] on filedocumented in this encounter Care Teams Small Business Banking Officer Relationship Specialty Start Date End Date Needs Pcp, Assignment PCP - General 04/24/14 [place] [address] documented as of this encounter
--- OUTSIDE RECORDS SUMMARY | 2022-09-15 10:32 | XMS_ITS | Encounter Summary ---
:1975 Author Organization [employer] Address [address] [place] [address] Care Team Providers Name Role Phone Needs Pcp, Assignment Primary Care Provider Encounter Details Date Type Department Care Team Description 01/14/2016 Hospital Encounter [facility] Luis Fernando Garcia, Surgery Center [address] [facility] [address] [place] [address] [place] [address] [phone] (Wo rk) Social History Tobacco Use Types [...] 1132 Note Time: 01/14/16 1039 Status: Signed Tax Manager Cpa: Luis Fernando Garcia MD (Physician) NAME: VIVEK MORALES MR#: [id number] CSN: [id number] AUTHENTICATING CLINICIAN: Luis Fernando Garcia MD CONFIRM [...] Diagnoses: Left small trigger finger Luis Fernando Odessa MD [place] 9:38 AM 01/14/2016 SFER SPECIALIST documented in this encounter Miscellaneous Notes Medication [...] on filedocumented in this encounter Care Teams Cloth Spreader Screen Printing Relationship Specialty Start Date End Date Needs Pcp, Assignment PCP - General 04/24/14 [place] [address] documented as of this encounter
--- OUTSIDE RECORDS SUMMARY | 2022-09-15 10:32 | XMS_ITS | Encounter Summary ---
:1975 Author Organization [facility] Address [address] [place] [address] Care Team Providers Name Role Phone Needs Pcp, Assignment Primary Care Provider Reason for Visit Reason Onset Date Comments Pre-procedure Call 12/06/2016 Encounter Details Date Type Department Care Team Description 12/06/2016 Telephone [facility] Lila Garcia RN Pre-procedure Call [address] [place], [place] [address] Social History Tobacco Use Types [...] on filedocumented in this encounter Care Teams Point Of Care Technician Relationship Specialty Start Date End Date Needs Pcp, Assignment PCP - General 04/24/14 [facility] [address] documented as of this encounter
--- OUTSIDE RECORDS SUMMARY | 2022-09-15 10:32 | XMS_ITS | Encounter Summary ---
:1975 Author Organization [facility] Address [address], [place] [address] Care Team Providers Name Role Phone Needs Pcp, Assignment Primary Care Provider Reason for Referral Therapies (Routine) - Closed Specialty Diagnoses / Procedures Referred By Contact Refer red To Contact Diagnoses Neck pain Fawad Geiger MD [address] [place] [address] Dr [place] [address] Referral ID Status Reason Start Date Expiration Date Visits Requ ested Visits Authorized [id number] Closed 02/03/2017 04/04/2017 1 1 Scheduling Instructions [...] Geiger MD Neck pain (Primary Dx); CENTER [address] [place] [address] Cervicogenic headache [address] [facility] [place] [address] [phone] (Wo rk) Social History Tobacco Use Types Packs/Day Years Used Date Smoking Tobacco: Never Smokeless Tobacco: Never Alcohol Use Standard Drinks/Week Comments No 0 (1 standard drink = 0.6 oz pure alcoho l) Sex Assigned at Date Recorded Not on file documented as of this encounter Patient Instructions Patient InstructionsPhillJaylene phan ATC - 02/03/2017 10:[address] Fawad Geiger MD Orthopaedic Spine Please contact the Spine Nurse for all medical related questions at [phone] Office Hours: and Tuesday Medication Requests: Prescriptions are not filled on Weekends or on Weekdays after 3:00PM For all medication refills: Request a refill using [employer]oc[employer] or contact your Pharmacy Slag Dumper: Juli Gould Please contact Juli for all administrative questions at [phone] Physical Therapy Trial of traction documented in this encounter Progress Notes Fawad Geiger MD - 02/03/2017 10:38 AM CDT [facility] Follow-Up 02/03/2017 Chief Complaint: Neck Pain [...] which she has been using Zanaflex and [place] at home for relief. Physical Exam: General: [...] Name Type Priority Associated Diagnoses Order S [facility] Physical Therapy Referral Routine Neck pain Ordered: documented as of this encounter Visit Diagnoses Diagnosis Neck pain - Primary Cervicalgia Cervicogenic headache Headache documented in this encounter Care Teams Ditch Repairer Relationship Specialty Start Date End Date Needs Pcp, Assignment PCP - General 04/24/14 [place] [address] documented as of this encounter
--- OUTSIDE RECORDS SUMMARY | 2022-09-15 10:32 | XMS_ITS | Encounter Summary ---
:1975 Author Organization [employer] Address [address] [address] Care Team Providers Name Role Phone Needs Pcp, Assignment Primary Care Provider Reason for Visit Reason Comments Post Op Exam Encounter Details Date Type Department Care Team Description 01/29/2016 Office Visit [facility] Luis Fernando Garciaca re [facility] MD [place] surgery of the [address] [place] [address] musculoskeletal system [place], [place] (Primary Dx) [phone] Social History Tobacco Use Types Packs/Day Years Used Date Smoking Tobacco: Never Smokeless Tobacco: Never Alcohol Use Standard Drinks/Week Comments No 0 (1 standard drink = 0.6 oz pure alcoho l) Sex Assigned at Date Recorded Not on file documented as of this encounter Progress Notes Luis Fernando Garcia MD - 01/29/2016 3:11 PM CDT [facility] Postoperative Follow-Up 01/29/2016 History of Present Illness: [...] wet. Follow-up as needed. Scribe Disclosure: Tomas Oreilly, am serving as a scribe to [...] at 6:29 AM. Luis Fernando Garcia MD ME TAX ANALYST documented in this encounter Plan of Treatment Not on filedocumented as of this encounter Visit Diagnoses Diagnosis Aftercare following surgery of the [facility] - Primary Aftercare following surgery of the [facility], NEC documented in this encounter Care Teams Scientific Publications Editor Relationship Specialty Start Date End Date Needs Pcp, Assignment PCP - General 04/24/14 [place] [address] documented as of this encounter
--- OUTSIDE RECORDS SUMMARY | 2022-09-15 10:32 | XMS_ITS | Encounter Summary ---
:1975 Author Organization [facility] Address [address], [place] [address] Care Team Providers Name Role Phone Needs Pcp, Assignment Primary Care Provider Reason for Visit Reason Comments Surgery Orders Encounter Details Date Type Department Care Team Description 12/15/2015 Orders Only [facility] Luis Fernando Zapata MD [address] [place] [address] [address] [place] [address] [place] [address] [phone] (Wo rk) Social History Tobacco Use Types [...] filedocumented in this encounter Care Teams Director Of Communications Relationship Specialty Start Date End Date Needs Pcp, Assignment PCP - General 04/24/14 [place] [address] documented as of this encounter
--- OUTSIDE RECORDS SUMMARY | 2022-09-15 10:32 | XMS_ITS | Encounter Summary ---
:1975 Author Organization [facility] Address [address] [place] [facility] [place] [address] Care Team Providers Name Role Phone Needs Pcp, Assignment Primary Care Provider Encounter Details Date Type Department Care Team Description 02/16/2017 Notes/Orders [facility] Fawad Vera MD [address] [facility] [address] [place] [address] ERIN Matson [address] [place] [address] [phone] (Wo rk) Social History Tobacco Use Types [...] on filedocumented in this encounter Care Teams Heater Operator Helper Relationship Specialty Start Date End Date Needs Pcp, Assignment PCP - General 04/24/14 [place] [address] documented as of this encounter
--- OUTSIDE RECORDS SUMMARY | 2022-09-15 10:32 | XMS_ITS | Encounter Summary ---
:1975 Author Organization [facility] Address [address] [address] Care Team Providers Name Role Phone Needs Pcp, Assignment Primary Care Provider Reason for Visit Reason Comments Surgery Orders Encounter Details Date Type Department Care Team Description 01/06/2016 Notes/Orders [facility] Luis Fernando Zapata MD [address] [place] [address] DR [place]iz [place] [address] [place] [address] [phone] (Wo rk) Social History Tobacco Use Types [...] on filedocumented in this encounter Care Teams Clean Rice Broker Relationship Specialty Start Date End Date Needs Pcp, Assignment PCP - General 04/24/14 [place] [address] documented as of this encounter
--- OUTSIDE RECORDS SUMMARY | 2022-09-15 10:32 | XMS_ITS | Encounter Summary ---
:1975 Author Organization [facility] Address [address], [place] [address] Care Team Providers Name Role Phone Needs Pcp, Assignment Primary Care Provider Reason for Visit Reason Onset Date Comments QUESTIONS, GENERAL 11/26/2016 Encounter Details Date Type Department Care Team Description 11/26/2016 Telephone [facility] TER Fawad Geiger MD QUESTIONS, GENERAL [address] [place] [address] [place] [address] [place] [address] [phone] (Wo rk) Social History Tobacco Use Types [...] MRI cervical today. Provider will be notified. DRY CLEANER HAND documented in this encounter Plan of Treatment Not on filedocumented as of this encounter Visit Diagnoses Not on filedocumented in this encounter Care Teams Assembler Seat Relationship Specialty Start Date End Date Needs Pcp, Assignment PCP - General 04/24/14 [place] [address] documented as of this encounter
--- OUTSIDE RECORDS SUMMARY | 2022-09-15 10:32 | XMS_ITS | Encounter Summary ---
:1975 Author Organization [facility] Address [address], [place] [address] Care Team Providers Name Role Phone Needs Pcp, Assignment Primary Care Provider Reason for Referral Procedure/Equipment (Routine) - Incomplete Specialty Diagnoses / Procedures Referred By Contact Refer red To Contact Diagnoses Cervical radiculopathy Fawad Geiger MD Procedures FL C Arm 20 Pain Management [address] [facility] [address] [place] [address] 1 Referral ID Status Reason Start Date Expiration Date Visits V isits Requested Authorized [id number] Incomplete 11/25/2016 02/24/2018 1 1 RNET SOURCER Reason for Visit Reason Onset Date Comments Orders Needed 11/25/2016 Encounter Details Date Type Department Care Team Description 11/25/2016 Telephone [facility] TER Fawad Geiger MD Orders Needed [address] [facility] [address] [place] [address] [place] [address] [phone] (Wo rk) Social History Tobacco Use Types Packs/Day Years Used Date Smoking Tobacco: Never Smokeless Tobacco: Never Alcohol Use Standard Drinks/Week Comments No 0 (1 standard drink = 0.6 oz pure alcoho l) Sex Assigned at Date Recorded Not on file documented as of this encounter Nursing Notes Yolanda Cali RN - 11/25/2016 4:39 PM CST Order placed. RNET SOURCER Fawad Geiger MD - 11/25/2016 4:33 PM CST Provided with lab results, still having constant headache and neck pain. Will proceed with left C2-3facet injection as planned. Order placed. RNET SOURCER documented in this encounter Plan of Treatment [...] nos documented in this encounter Care Teams Cuff Runner Relationship Specialty Start Date End Date Needs Pcp, Assignment PCP - General 04/24/14 [place] [address] documented as of this encounter
--- OUTSIDE RECORDS SUMMARY | 2022-09-15 10:32 | XMS_ITS | Encounter Summary ---
:1975 Author Organization [facility] Address [address], [place] [address] Care Team Providers Name Role Phone Needs Pcp, Assignment Primary Care Provider Reason for Visit Reason Onset Date Comments QUESTIONS, GENERAL 12/08/2016 Encounter Details Date Type Department Care Team Description 12/08/2016 Refill [facility] TER Fawad Geiger MD QUESTIONS, GENERAL [address] [facility] [address] [place] [address] [place] [address] [place] [address] [phone] (Wo rk) Social History Tobacco Use Types [...] also did approve Zanaflex tablets for her. EMENTATION DIRECTOR Yolanda Cali RN - 12/08/2016 2:42 PM [...] Zanaflex medication. She can be reached at [phone]. EMENTATION DIRECTOR documented in this encounter Plan of Treatment Not on filedocumented as of this encounter Visit Diagnoses Not on filedocumented in this encounter Care Teams Welder Gas Automatic Relationship Specialty Start Date End Date Needs Pcp, Assignment PCP - General 04/24/14 [place] [address] documented as of this encounter
--- OUTSIDE RECORDS SUMMARY | 2022-09-15 10:32 | XMS_ITS | Encounter Summary ---
:1975 Author Organization [facility] Address [address] [place] [address] Care Team Providers Name Role Phone Needs Pcp, Assignment Primary Care Provider Reason for Visit Reason Onset Date Comments Pre-procedure Call 01/10/2017 Encounter Details Date Type Department Care Team Description 01/10/2017 Telephone [facility] Leyla Mendez RN Pre-procedure Call [address] [place], [place] [address] Social History Tobacco Use [...] on filedocumented in this encounter Care Teams Workforce Management Manager Relationship Specialty Start Date End Date Needs Pcp, Assignment PCP - General 04/24/14 [place] [address] documented as of this encounter
--- OUTSIDE RECORDS SUMMARY | 2022-09-15 10:32 | XMS_ITS | Encounter Summary ---
:1975 Author Organization [facility] Address [address] [place] [address] Care Team Providers Name Role Phone Needs Pcp, Assignment Primary Care Provider Reason for Visit Reason Onset Date Comments Injection 12/07/2016 Body Rash Encounter Details Date Type Department Care Team Description 12/07/2016 Telephone [facility] Fawad Jerez MD Injection (Body Rash) CENTER [address] [place] [address] [address] [place], [place] [address] [phone] (Wo rk) Social History Tobacco Use Types [...] to continue with injection scheduled for tomorrow. AND BURR OPERATOR documented in this encounter Plan of Treatment Not on filedocumented as of this encounter Visit Diagnoses Not on filedocumented in this encounter Care Teams International Flight Attendant Relationship Specialty Start Date End Date Needs Pcp, Assignment PCP - General 04/24/14 [place] [address] documented as of this encounter
--- OUTSIDE RECORDS SUMMARY | 2022-09-15 10:32 | XMS_ITS | Encounter Summary ---
:1975 Author [facility] Address [address] [place] [address] Care Team Providers Name Role Phone Needs Pcp, Assignment Primary Care Provider Reason for Referral Specialty Diagnoses / Procedures Referred By Contact Refer red To Contact Daniel Chang PA-C [address] [facility] [place], [place] [address] Referral ID Status Reason Start Date Expiration Date Visits Requ ested Visits Authorized UCE TEAM MEMBER Reason for Visit Reason Comments Physical Therapy Encounter Details Date Type Department Care Team Description 12/26/2015 Initial Consult [facility], Physical D, PT radiculopathy Therapy [address] [facility] [address] [facility]. [place], [place] W. 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 Dakota [...] all directions without pain Joint mobility: Side [place]: restricted in neutral R to L C4-5, [...] negative TREATMENT TODAY: Physical Therapy Evaluation (CPT 11981): An evaluation was performed. The patient was educated on the condition, planned therapy intervention and expectations from treatment. Goals were a collaborativeeffort of the therapist and patient. Therapeutic Exercise (CPT 13948) x 15 minutes: Performance and instructions in the following exercises designed to improve anterior cervical strength, improve thoracic and pectorial mobility: supine thoracic mobility using a foam roller supine cervical retraction on the foam roller and retraction with head lift foam roller pectorial mobility Manual therapy, 1 or more regions (CPT 93115) x 10 minutes: trigger point release techniques [...] and certification of therapy plan of care. UCE TEAM MEMBER documented in this encounter Plan of Treatment Scheduled Referrals Name Type Priority Associated Diagnoses Order S [facility] Physical Therapy Referral Routine Cervical radiculopathy O rdered: 12/26/2015, Expires: 2015 documented as of this encounter Visit Diagnoses Diagnosis Cervical radiculopathy Brachial neuritis or radiculitis nos documented in this encounter Care Teams Spool Carrier Relationship Specialty Start Date End Date Needs Pcp, Assignment PCP - General 04/24/14 [place] [address] documented as of this encounter
--- OUTSIDE RECORDS SUMMARY | 2022-09-15 10:32 | XMS_ITS | Encounter Summary ---
:1975 Author Organization [facility] Address [address] [place] [address] Care Team Providers Name Role Phone Needs Pcp, Assignment Primary Care Provider Reason for Visit Reason Onset Date Comments Post Visit Follow Up Phone Call 01/13/2017 Encounter Details Date Type Department Care Team Description 01/13/2017 Telephone [facility] Lila Garcia RN Post Visit Follow Up [address] [facility] [address] Phone Call [place], [place] [address] Social History Tobacco Use Types [...] on filedocumented in this encounter Care Teams School Bus Monitor Relationship Specialty Start Date End Date Needs Pcp, Assignment PCP - General 04/24/14 [facility] [place] [address] documented as of this encounter
--- OUTSIDE RECORDS SUMMARY | 2022-09-15 10:32 | XMS_ITS | Encounter Summary ---
:1975 Author Organization [facility] Address [address] [place] [address] Care Team Providers Name Role Phone Needs Pcp, Assignment Primary Care Provider Reason for Visit Reason Comments HAND PAIN ERRONEOUS ENTRY Encounter Details Date Type Department Care Team Description 01/26/2016 Office Visit [facility] Luis Fernando Garcia, [facility] (Primary Dx) [address] [facility] [address] [place] [address] [address] [place] [place] [address] [place], [place] [phone] (Wo rk) Social History Tobacco Use Types [...] was created in error - please disregard. TIER Judi Arguelles - 01/26/2016 1:17 PM CDT This encounter was created in error - please disregard. TIER documented in this encounter Plan of Treatment Not on filedocumented as of this encounter Visit Diagnoses Diagnosis ERRONEOUS ENTRY - Primary documented in this encounter Care Teams Sheet Metal Duct Installer Apprentice Relationship Specialty Start Date End Date Needs Pcp, Assignment PCP - General 04/24/14 [place], [place] [address] documented as of this encounter
--- OUTSIDE RECORDS SUMMARY | 2022-09-15 10:32 | XMS_ITS | Encounter Summary ---
:1975 Author Organization [employer] Address [address], [place] [address] Care Team Providers Name Role Phone Needs Pcp, Assignment Primary Care Provider Reason for Visit Reason Onset Date Comments PAIN, NOS 05/06/2017 Encounter Details Date Type Department Care Team Description 05/06/2017 Telephone [facility] Dakota Aparicio MD PAIN, NOS [id number] 1 [place] [address] [phone] (Wo rk) Social History Tobacco Use Types [...] filedocumented in this encounter Care Teams Shipping And Receiving Clerk Relationship Specialty Start Date End Date Needs Pcp, Assignment PCP - General 04/24/14 [place] [address] documented as of this encounter
--- OUTSIDE RECORDS SUMMARY | 2022-09-15 10:32 | XMS_ITS | Encounter Summary ---
:1975 Author Organization [facility] Address [address] [place] [address] Care Team Providers Name Role Phone Needs Pcp, Assignment Primary Care Provider Reason for Referral Procedure/Equipment (Routine) - Incomplete Specialty Diagnoses / Procedures Referred By Contact Refer red To Contact Diagnoses 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) Dakota Aparicio MD Procedures FL C Arm 20 Pain Management [address] [place] [address] 17 Referral ID Status Reason Start Date Expiration Date Visits V isits Requested Authorized [id number] Incomplete 03/29/2017 06/28/2018 1 1 Procedure/Equipment (Routine) - Incomplete Specialty Diagnoses / Procedures Referred By Contact Refer red To Contact Diagnoses 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) Dakota Aparicio MD Procedures FL C Arm 20 Pain Management [address] [place] [address] 17 Referral ID Status Reason Start Date Expiration Date Visits V isits Requested Authorized [id number] Incomplete 03/29/2017 06/28/2018 1 1 Reason for Visit Reason Comments CONSULT left occipital Consult/Transfer Care (Routine) - Closed Specialty Diagnoses / Procedures Referred By Contact Refer red To Contact Diagnoses Neck pain Fawad Geiger MD [address] [place], [place] [address] Referral ID Status Reason Start Date Expiration Date Visits Requ ested Visits Authorized [id number] Closed 02/16/2017 05/18/2018 1 1 Encounter Details Date Type Department Care Team Description 03/29/2017 Initial Consult [facility] Dakota Aparicio MD [address] [place] [address] Spondylosis of [address] [facility] 1, Tria Rad Rn cervical region Drive without myelopathy or [place], [place] radiculopath y (Primary [address] Dx) [phone] Social History Tobacco Use Types Packs/Day Years [...] branch block at C234 3) Stop the [place] 4) You can also take tylenol 1000mg three times a day 5) Living well consultation with Viky Fuentes Topamax TOPIRAMATE (Topamax) 25 mg Morning Night Schedule [...] new information on 2007, to alert health child care supervisor about an increased risk of suicidal thoughts [...] of the time. She came off her [place] for about a week, and her headaches [...] consider ultrasound for further evaluation. Pertinent Medications: [place] 1-3 tabs a day Medications poorly tolerated [...] such as work ?? Personal review of [place] Prescription Monitoring System, and any other available, [...] region without myelopathy or radiculopathy ([facility]) M47.812 FL C Arm 20 PainManagement FL [...] we are going to try coming offthe [place] as I think this is a poor analgesic for chronic neck pain and headache. I do think getting Viky Fuentes on board with the [facility] consultation to supplement her treatment with pain coping strategies and relaxation techniques would be quite helpful. Plan: 1) Will start topamax 25mg - follow instructions below. 2) Schedule for a left side medial branch block at C234 3) Stop the [place] 4) You can also take tylenol 1000mg three times a day 5) [facility] consultation with Viky Aparicio M.D. Anesthesia and Interventional Pain Lila Garcia RN - 03/29/2017 1:20 PM CDT HEALTH SCIENCES PROGRAM COORDINATOR for consult documented in this encounter Plan of Treatment Not on filedocumented as of this encounter Results MA C Arm 20 Pain Management (06/07/2017 10:58 AM CDT) Anatomical Region Laterality Modality Radiographic Imaging Specimen (Source) Anatomical Location Collection Method / Collectio n Time Received Time / Laterality Volume Narrative 06/08/2017 10:09 AM CDT Images obtained during surgical procedure. See procedure note in Epic on this date. Dakota Aparicio MD RAD [facility] C Arm 20 Pain Management (05/24/2017 10:51 [...] myelopathy documented in this encounter Care Teams Method Consultant Relationship Specialty Start Date End Date Needs Pcp, Assignment PCP - General 04/24/14 [place] [address] documented as of this encounter
--- OUTSIDE RECORDS SUMMARY | 2022-09-15 10:33 | XMS_ITS | Encounter Summary ---
:1975 Author Organization [employer] Address [address], [place] [address] Care Team Providers Name Role Phone Needs Pcp, Assignment Primary Care Provider Reason for Visit Reason Comments Pre-procedure Call Encounter Details Date Type Department Care Team Description 05/20/2015 Telephone [facility] Anahi Barnes RN Pre-procedure Call [address] [place], [place] [address] Social History Tobacco Use Types Packs/Day Years [...] water as usual in am. 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 Reviewed NSAID use with [...] on filedocumented in this encounter Care Teams Completions Manager Relationship Specialty Start Date End Date Needs Pcp, Assignment PCP - General 04/24/14 [place] [address] documented as of this encounter
--- OUTSIDE RECORDS SUMMARY | 2022-09-15 10:33 | XMS_ITS | Encounter Summary ---
:1975 Author Organization [facility] Address [address] [place] [address] Care Team Providers Name Role Phone Needs Pcp, Assignment Primary Care Provider Encounter Details Date Type Department Care Team Description 05/22/2015 Imaging [facility] MRI Herniated disc, cervical [address] [place], [place] [address] Social History Tobacco Use Types [...] myelopathy documented in this encounter Care Teams Auto Body Estimator Relationship Specialty Start Date End Date Needs Pcp, Assignment PCP - General 04/24/14 [place] [address] documented as of this encounter
--- OUTSIDE RECORDS SUMMARY | 2022-09-15 10:33 | XMS_ITS | Encounter Summary ---
:1975 Author Organization [facility] Address [address], [place] [address] Care Team Providers Name Role Phone Needs Pcp, Assignment Primary Care Provider Encounter Details Date Type Department Care Team Description 08/21/2015 Imaging [facility] MRI Shoulder pain, left [address] [place], [place] [address] Social History Tobacco Use Types [...] region documented in this encounter Care Teams Sales Order Clerk Relationship Specialty Start Date End Date Needs Pcp, Assignment PCP - General 04/24/14 [place] [address] documented as of this encounter
--- OUTSIDE RECORDS SUMMARY | 2022-09-15 10:33 | XMS_ITS | Encounter Summary ---
:1975 Author Organization [facility] Address [address] [place] [address] Care Team Providers Name Role Phone Needs Pcp, Assignment Primary Care Provider Reason for Visit Reason Comments SHOULDER PAIN Encounter Details Date Type Department Care Team Description 05/08/2015 Surgical Consult [facility] Daniel Chang Hern iated disc, cervical (Primary Dx); [facility] Neck pain [address] [place] [address] [address] [place] [address] [place] [address] [phone] Social History Tobacco Use Types Packs/Day Years [...] Chang PA-C Sports Medicine and General Orthopedics Biometric Screener: Maryjane Blanco Please contact Maryjane for all administrative questions at [phone] Please call Nurse Triage at [phone] for all medical questions Fax number: [phone] Medication Requests: Prescriptions are not filled on Weekends or on Weekdays after 3:00PM For all medication refills: Request a refill using MyChart or contact your Pharmacy If you develop new or worsening symptoms call [facility] at [phone] documented in this encounter Progress Notes Daniel Chang PA-C - 05/08/2015 4:38 PM CDT [facility] Consultation 05/08/2015 Chief Complaint: [...] with the patient; this is located in [facility] in [facility]. Physical Exam: General: The patient is [...] Cervicalgia documented in this encounter Care Teams Warehouse Logistics Coordinator Relationship Specialty Start Date End Date Needs Pcp, Assignment PCP - General 04/24/14 [place] [address] documented as of this encounter
--- OUTSIDE RECORDS SUMMARY | 2022-09-15 10:33 | XMS_ITS | Encounter Summary ---
:1975 Author Organization [facility] Address [address] [address] Care Team Providers Name Role Phone Needs Pcp, Assignment Primary Care Provider Reason for Visit Reason Comments Refill Encounter Details Date Type Department Care Team Description 06/30/2015 Refill [facility] Daniel Trivedi PA-C Refill [address] [facility] [address] [facility] [place] [address] [address] [place] [address] [phone] (Wo rk) Social History Tobacco Use Types [...] on filedocumented in this encounter Care Teams Vacuum Worker Relationship Specialty Start Date End Date Needs Pcp, Assignment PCP - General 04/24/14 [place] [address] documented as of this encounter
--- OUTSIDE RECORDS SUMMARY | 2022-09-15 10:33 | XMS_ITS | Encounter Summary ---
:1975 Author Organization [employer] Address [address] [address] Care Team Providers Name Role Phone Needs Pcp, Assignment Primary Care Provider Reason for Visit Reason Comments Refill Encounter Details Date Type Department Care Team Description 05/15/2015 Refill [facility] Daniel Trivedi PA-C Refill [address] [facility] [address] [facility] [place], [place] [address] [place] [address] [phone] (Wo rk) Social History Tobacco Use Types [...] on filedocumented in this encounter Care Teams Specialty Foods Cook Relationship Specialty Start Date End Date Needs Pcp, Assignment PCP - General 04/24/14 [place] [address] documented as of this encounter
--- OUTSIDE RECORDS SUMMARY | 2022-09-15 10:33 | XMS_ITS | Encounter Summary ---
:1975 Author Organization [facility] Address [address], [place] [address] Care Team Providers Name Role Phone Needs Pcp, Assignment Primary Care Provider Reason for Visit Reason Comments ERRONEOUS ENTRY Encounter Details Date Type Department Care Team Description 08/29/2015 Office Visit [facility] Daniel Chang, JAIRON Susan ENTRY CENTER MINDA (Primary Dx) [address] [facility] [address] [place] [address] [place] [address] [place], [place] [phone] (Wo rk) Social History Tobacco Use Types [...] Primary documented in this encounter Care Teams Tv News Director Relationship Specialty Start Date End Date Needs Pcp, Assignment PCP - General 04/24/14 [place] [address] documented as of this encounter
--- OUTSIDE RECORDS SUMMARY | 2022-09-15 10:33 | XMS_ITS | Encounter Summary ---
:1975 Author Organization [facility] Address [address], [place] [address] Care Team Providers Name Role Phone Needs Pcp, Assignment Primary Care Provider Encounter Details Date Type Department Care Team Description 08/11/2015 Notes/Orders [facility] Daniel Chang, Shoulder pain, left CENTER PA-C (Primary Dx) [address] [facility] [address] [place] [address] [address] [place], [place] [phone] (Wo rk) Social History Tobacco Use Types [...] region documented in this encounter Care Teams Diesel Pile Hammer Operator Relationship Specialty Start Date End Date Needs Pcp, Assignment PCP - General 04/24/14 [place] [address] documented as of this encounter
--- OUTSIDE RECORDS SUMMARY | 2022-09-15 10:33 | XMS_ITS | Encounter Summary ---
:1975 Author Organization [facility] Address [address] [address] Care Team Providers Name Role Phone Needs Pcp, Assignment Primary Care Provider Reason for Visit Reason Comments HAND PAIN Encounter Details Date Type Department Care Team Description 12/15/2015 Office Visit [facility] Luis Fernando Garcia, [facility] trigger CENTER finger (Primary Dx) [address] [place] [address] [place] [address] [address] [place], [place] [phone] (Wo rk) Social History Tobacco Use Types Packs/Day Years Used Date Smoking Tobacco: Never Smokeless Tobacco: Never Alcohol Use Standard Drinks/Week Comments No 0 (1 standard drink = 0.6 oz pure alcoho l) Sex Assigned at Date Recorded Not on file documented as of this encounter Patient Instructions Patient InstructionsDafne Olmos - 12/15/2015 11:[address] Luis Fernando Garcia MD Hand & Upper Extremity Surgeon Size Cutter: Mickie Olmos Please contact Mickie for all surgery scheduling and administrative questions at [phone] Please contact Nurse triage for all medical related questions at [phone] Medication Requests: Prescriptions are not filled on Weekends or on Weekdays after 3:00PM For all medication refills: Request a refill using [employer] or contact your Pharmacy Please call [phone] to make future appointments. Surgery scheduled for 01/09/16 documented in this encounter Progress Notes Luis Fernando Garcia MD - 12/15/2015 12:26 PM CST Progress Notes signed by Luis Fernando Garcia MD at 12/17/15 1028 Author: Luis Fernando Garcia MD Service: (none) Author Type: Physician Filed: 12/17/15 1028 Note Time: 12/17/15 1020 Status: Signed Intelligence Chief: Luis Fernando Garcia MD (Physician) NAME: VIVEK MORALES MR#: [id number] CSN: [id number] AUTHENTICATING CLINICIAN: Luis Fernando Garcia MD CONFIRM [...] to proceed. MCW:REGIS C: R:12/15/15 14:20 CONFIRM#:[id number] INE HAND documented in this encounter Plan of Treatment Not on filedocumented as of this encounter Visit Diagnoses Diagnosis Acquired trigger finger - Primary Trigger finger (acquired) documented in this encounter Care Teams Service Secretary Relationship Specialty Start Date End Date Needs Pcp, Assignment PCP - General 04/24/14 [place] [address] documented as of this encounter
--- OUTSIDE RECORDS SUMMARY | 2022-09-15 10:33 | XMS_ITS | Encounter Summary ---
:1975 Author Organization [email or web address] Address [address] [place] [address] Care Team Providers Name Role Phone Unassigned, [...] Care Ana Lilia Migraine headache (Primary [address] Dx) [place] [address] Social History [...] encounter Patient Instructions Patient InstructionsIvette Hatfield APRN, SCALLOPER - 07/28/2012 6:11 PM CDT Migraine Migraine [...] glutamate (a flavor enhancer frequently found in Serbian food). Caffeine, NutraSweet, and alcohol may also [...] that are appropriate. Thank you for choosing [facility] for your urgent medical needs.. If your condition significantly worsens, please call your provider or the emergency room right away. Contact the [facility] CareLine with any questions at: [phone] or TTY: [phone]. [facility] Emergency Room [address] [place] [address] For follow-up care please follow up with your primary care clinic/provider. If you would like to be seen in a [facility] clinic, please call the Appointment Center: [phone] (7:00 AM and 9:00 PM) Hearing Impaired: [...] migrainosus documented in this encounter Care Teams Operations Forester Relationship Specialty Start Date End Date Unassigned, Provider PCP - General 02/08/03 04/23/[address] [place] [address] documented as of this encounter
--- OUTSIDE RECORDS SUMMARY | 2022-09-15 10:33 | XMS_ITS | Encounter Summary ---
:1975 Author Organization [facility] Address [address] [place] [address] Care Team Providers Name Role Phone Unavailable Primary Care Provider Unavailable Reason for Visit Reason Comments SPOTTING, DURING Encounter Details Date Type Department Care Team Description 08/25/2002 Telephone Careline Fariba Dukes, SPOTTING, DURING [address] [place], [place] [address] [facility] [phone] [place] [address] Social History Tobacco Use Types Packs/Day Years [...] or pelvic exam during thispregnancy. Notes from [facility] in [facility]--spontaneous miscarriage, quantitative HCG d rawn. Pt [...] [facility] due to bleeding at 3:00 am, and was told there was tissure around the cervix. Pt. has questi ons about what she is waiting for and why she is so nauseated. Sees a physician at [facility]. Plan: careline OB nurse to complete assessment documented in this encounter Plan of Treatment Not on filedocumented as of this encounter Visit Diagnoses Not on filedocumented in this encounter
--- OUTSIDE RECORDS SUMMARY | 2022-09-15 10:33 | XMS_ITS | Encounter Summary ---
:1975 Author Organization [facility] [employer] Address [address] [place] [address] Care Team Providers Name Role Phone Needs Pcp, Assignment Primary Care Provider Reason for Visit Reason Comments Refill Encounter Details Date Type Department Care Team Description 06/06/2015 Refill [facility] Daniel Trivedi PA-C Refill [address] [facility] [address] [facility] [place] [address] [place] [address] [phone] (Wo rk) Social History Tobacco Use Types Packs/Day Years Used Date Smoking Tobacco: Never Smokeless Tobacco: Never Alcohol Use Standard Drinks/Week Comments No 0 (1 standard drink = 0.6 oz pure alcoho l) Sex Assigned at Date Recorded Not on file documented as of this encounter Nursing Notes Emilie Maravilla RN - 06/06/2015 4:11 PM CDT Called T#3 to [facility] in [place] for patient. Patient informed medication will get filled. Emilie Maravilla RN - 06/06/2015 2:42 PM CDT Patient had C6-7 injection 05/22/15 at [facility], still having the left arm burning sensation. Rating pain7/10. Pt has appointment with you 06/17/15. Requesting T#3. Please approve or advise. Thank you. documented in this encounter Plan of Treatment Not on filedocumented as of this encounter Visit Diagnoses Not on filedocumented in this encounter Care Teams Mining And Quarrying Machinery Repairer Relationship Specialty Start Date End Date Needs Pcp, Assignment PCP - General 04/24/14 [place] [address] documented as of this encounter
--- OUTSIDE RECORDS SUMMARY | 2022-09-15 10:33 | XMS_ITS | Encounter Summary ---
:1975 Author Organization [employer] Address [address], [place] [address] Care Team Providers Name Role Phone Needs Pcp, Assignment Primary Care Provider Reason for Visit Reason Comments SHOULDER PAIN Encounter Details Date Type Department Care Team Description 08/29/2015 Office Visit [facility] Daniel Chang, Cervical radiculopathy CENTER MINDA (Primary Dx) [address] [place] [address] [place] [address] [place], [place] [phone] Social History Tobacco Use Types Packs/Day Years Used Date Smoking Tobacco: Never Smokeless Tobacco: Never Alcohol Use Standard Drinks/Week Comments No 0 (1 standard drink = 0.6 oz pure alcoho l) Sex Assigned at Date Recorded Not on file documented as of this encounter Progress Notes Daniel Chang PA-C - 08/29/2015 4:58 PM CDT [facility] Follow-Up 08/29/2015 Chief Complaint: Follow up left [...] Imaging: MR left shoulder without contrast on 015: 1. Mild arthropathy in the AC joint. [...] nos documented in this encounter Care Teams Neurophysiological Technician Relationship Specialty Start Date End Date Needs Pcp, Assignment PCP - General 04/24/14 [place] [address] documented as of this encounter
--- OUTSIDE RECORDS SUMMARY | 2022-09-15 10:33 | XMS_ITS | Encounter Summary ---
:1975 Author Organization [facility] Address [address] [address] Care Team Providers Name Role Phone Needs Pcp, Assignment Primary Care Provider Reason for Visit Reason Comments Appt. Needed Encounter Details Date Type Department Care Team Description 04/11/2015 Telephone [facility] Kiana Earl MD Appt. Needed [address] [facility] [address] [place] [address] [place] [address] [place] [address] [phone] (Wo rk) Social History Tobacco Use Types [...] these issues. 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 pt educated on ways to alleviate her pain including refraining from leaning on her elbows or keeping her elbow bent for long periods of time. Pt verbalized understanding, all questionsanswered. documented in this encounter Plan of Treatment Not on filedocumented as of this encounter Visit Diagnoses Not on filedocumented in this encounter Care Teams Communications Manager Relationship Specialty Start Date End Date Needs Pcp, Assignment PCP - General 04/24/14 [place] [address] documented as of this encounter
--- OUTSIDE RECORDS SUMMARY | 2022-09-15 10:33 | XMS_ITS | Encounter Summary ---
:1975 Author Organization [facility] Address [address] [address] Care Team Providers Name Role Phone Unavailable Primary Care Provider Unavailable Encounter Details Date Type Department Care Team Description 05/21/2001 Office Visit [facility] ABDOMINAL PAIN OTHER SPEC SI TE; [address] [facility]. [place] [address] Social History Tobacco Use Types Packs/Day Years [...] Rushing MD Transcribed: 05/22/2001 22:41:29 Doc #: [id number] cc: ISELA Ramires, Primary 1 Page 1 Patient Name: VIVEK MORALES Visit Date: 05/21/2001 EMERGENCY MEDICINE NOTE CONFIDENTIAL MEDICAL RECORD [address] [phone] Page 1 Patient: VIVEK MORALES Location: [facility] HPN: Date of : 1975 Visit Date: 05/21/2001 EMERGENCY MEDICINE NOTE documented in this encounter Plan of Treatment Not on filedocumented as of this encounter Visit Diagnoses Diagnosis Abdominal pain, other specified site General counseling for prescription of o ral contraceptives documented in this encounter
--- OUTSIDE RECORDS SUMMARY | 2022-09-15 10:33 | XMS_ITS | Encounter Summary ---
:1975 Author Organization [facility] Address [address] [address] Care Team Providers Name Role Phone Needs Pcp, Assignment Primary Care Provider Reason for Visit Reason Comments ERRONEOUS ENTRY Encounter Details Date Type Department Care Team Description 06/17/2015 Office Visit [facility] Daniel Chang, JAIRON Susan ENTRY CENTER MINDA (Primary Dx) [address] [facility] [address] [place] [address] [place] [address] [address] [place], [place] [phone] (Wo rk) Social History Tobacco Use Types [...] created in error - please disregard. Daniel Chang PA-C - 06/17/2015 10:04 PM CDT This encounter was created in error - please disregard. documented in this encounter Plan of Treatment Not on filedocumented as of this encounter Visit Diagnoses Diagnosis ERRONEOUS ENTRY - Primary documented in this encounter Care Teams Digital Strategist Senior Manager Relationship Specialty Start Date End Date Needs Pcp, Assignment PCP - General 04/24/14 [place], [place] [address] documented as of this encounter
--- OUTSIDE RECORDS SUMMARY | 2022-09-15 10:33 | XMS_ITS | Encounter Summary ---
:1975 Author Organization [facility] Address [address] [address] Care Team Providers Name Role Phone Needs Pcp, Assignment Primary Care Provider Reason for Visit Reason Comments Post-Op Follow Up Call Encounter Details Date Type Department Care Team Description 05/23/2015 Telephone [facility] Erin Askew RN Post-Op Follow Up Call [address] [place], [place] [address] Social History Tobacco Use Types Packs/Day Years Used Date Smoking Tobacco: Never Smokeless Tobacco: Never Alcohol Use Standard Drinks/Week Comments No 0 (1 standard drink = 0.6 oz pure alcoho l) Sex Assigned at Date Recorded Not on file documented as of this encounter Nursing Notes Erin Askew RN - 05/23/2015 8:59 AM CDT Follow up call: Left message to call back regarding procedure yesterday. documented in this encounter Plan of Treatment Not on filedocumented as of this encounter Visit Diagnoses Not on filedocumented in this encounter Care Teams Document Control Specialist Relationship Specialty Start Date End Date Needs Pcp, Assignment PCP - General 04/24/14 [place] [address] documented as of this encounter
--- OUTSIDE RECORDS SUMMARY | 2022-09-15 10:33 | XMS_ITS | Encounter Summary ---
:1975 Author Organization [facility] Address [address], [place] [address] Care Team Providers Name Role Phone Needs Pcp, Assignment Primary Care Provider Reason for Visit Reason Comments RESULTS, TEST Encounter Details Date Type Department Care Team Description 08/21/2015 Telephone [facility] Daniel Trivedi PA-C RESULTS, TEST [address] [facility] [address] [facility] [place] [address] [place] [address] [phone] (Wo rk) Social History Tobacco Use Types [...] on filedocumented in this encounter Care Teams Meat Carrier Relationship Specialty Start Date End Date Needs Pcp, Assignment PCP - General 04/24/[address] [facility] [place] [address] documented as of this encounter
--- OUTSIDE RECORDS SUMMARY | 2022-09-15 10:33 | XMS_ITS | Encounter Summary ---
:1975 Author Organization [facility] Address [address] [place] [address] Care Team Providers Name Role Phone Needs Pcp, Assignment Primary Care Provider Reason for Visit Reason Comments Pre-procedure Call Encounter Details Date Type Department Care Team Description 05/09/2015 Telephone [facility] Lucy Albrecht, Pre-procedure Call [address] [place], [place] [address] Social History Tobacco Use Types [...] on filedocumented in this encounter Care Teams Care Companion Relationship Specialty Start Date End Date Needs Pcp, Assignment PCP - General 04/24/14 [place] [address] documented as of this encounter
--- OUTSIDE RECORDS SUMMARY | 2022-09-15 10:33 | XMS_ITS | Encounter Summary ---
:1975 Author Organization [facility] Address [address] [place] [address] Care Team Providers Name Role Phone Needs Pcp, Assignment Primary Care Provider Encounter Details Date Type Department Care Team Description 05/02/2014 Imaging [facility] Finger pain, left [address] [place], [place] [address] Social History Tobacco Use Types [...] limb documented in this encounter Care Teams Tack Puller Relationship Specialty Start Date End Date Needs Pcp, Assignment PCP - General 04/24/14 [place] [address] documented as of this encounter
--- OUTSIDE RECORDS SUMMARY | 2022-09-15 10:33 | XMS_ITS | Encounter Summary ---
:1975 Author Organization [facility] Address [address] [place] [address] Care Team Providers Name Role Phone Needs Pcp, Assignment Primary Care Provider Reason for Visit Reason Comments Neck Pain Encounter Details Date Type Department Care Team Description 05/22/2015 Procedure Visit [facility] Dakota Aparicio MD [address] [place] [address] Neck Pain [address] [facility] [address], [address] [place], [place] [address] Social History Tobacco Use Types [...] Matt Herman in 10 days. Please call [phone] to schedule an appointment if you do [...] and Anesthesiologist Please contact the Pain Nurse ([phone]) for all medical/procedural questions regarding your care at the [facility] Pain Program Please contact [place] ([phone]) for all administrative/scheduling questions related to the [...] ICD-9-CM ICD-10-CM 1. Cervical radiculitis 723.4 M54.12 HI NJX DX/THER SBST EPIDURAL/SUBRACH CERV/THORACIC HI DEXAMETHASONE SODIUM PHOS HI FLUORO NEEDLE/CATH SPINE/PARASPINAL DX/THER XR CLIN OMNIPAQUE 200-299 MGML 20ML 2. Herniated disc, C6-7 722.0 M50.20 POCT urine POSTOPERATIVE DIAGNOSIS: Diagnosis (ICD9) and Associated Orders ICD-9-CM ICD-10-CM 1. Cervical radiculitis 723.4 M54.12 HI NJX DX/THER SBST EPIDURAL/SUBRACH CERV/THORACIC HI DEXAMETHASONE SODIUM PHOS HI FLUORO NEEDLE/CATH SPINE/PARASPINAL DX/THER XR CLIN OMNIPAQUE [...] increments. The needle was then retracted approximately long-term and the needle track was flushed with [...] to home at 0955 via ambulatory with trencher driver/duaghter. Leyla Mendez RN - 05/22/2015 8:35 [...] in Epic on this date. Procedure Note Crate Repairer Ap, Radiology - 04/18/2016 Images obtained during surgical procedur e. See procedure note in Epic on this date. Daniel Chang PAEleazar RAD [place] POCT URINE (05/22/2015 8:36 AM CDT) [facility] gist Method Time Signature Urine Negative [...] myelopathy documented in this encounter Care Teams Furnace Attendant Relationship Specialty Start Date End Date Needs Pcp, Assignment PCP - General 04/24/14 [place] [address] documented as of this encounter
--- OUTSIDE RECORDS SUMMARY | 2022-09-15 10:33 | XMS_ITS | Encounter Summary ---
:1975 Author Organization [facility] Address [address], [place] [address] Care Team Providers Name Role Phone Needs Pcp, Assignment Primary Care Provider Reason for Visit Reason Comments ERRONEOUS ENTRY Encounter Details Date Type Department Care Team Description 07/08/2015 Office Visit [facility] Daniel Chang, JAIRON Susan ENTRY CENTER MINDA (Primary Dx) [address] [facility] [address] [place] [address] [place] [address] [address] [place], [place] [phone] (Wo rk) Social History Tobacco Use Types [...] Primary documented in this encounter Care Teams Medical Claims Manager Relationship Specialty Start Date End Date Needs Pcp, Assignment PCP - General 04/24/14 [place] [address] documented as of this encounter
--- OUTSIDE RECORDS SUMMARY | 2022-09-15 10:33 | XMS_ITS | Encounter Summary ---
:1975 Author Organization [facility] Address [address] [address] Care Team Providers Name Role Phone Needs Pcp, Assignment Primary Care Provider Reason for Visit Reason Comments Refill Encounter Details Date Type Department Care Team Description 08/11/2015 Telephone [facility] Daniel Trivedi PA-C Refill [address] [facility] [address] [facility] [address] [place] [address] [place] [address] [phone] (Wo rk) Social History Tobacco Use Types [...] on filedocumented in this encounter Care Teams Turntable Engineer Relationship Specialty Start Date End Date Needs Pcp, Assignment PCP - General 04/24/14 [place] [address] documented as of this encounter
--- OUTSIDE RECORDS SUMMARY | 2022-09-15 10:33 | XMS_ITS | Encounter Summary ---
:1975 Author Organization [facility] Address [address] [place] [address] Care Team Providers Name Role Phone Needs Pcp, Assignment Primary Care Provider Encounter Details Date Type Department Care Team Description 05/21/2001 Orders Only Hamlet Wilson MD [address] [place], [place] [phone] [place], [place] [phone] (Wo rk) Social History Tobacco Use Types [...] Component Value Ref Test Analysis Performed At [facility] Range Method Time Signature GC (N. Negative NEG REGIONS gonorrhoeae) Test Performed by PCR Assay Performed at [facility] Source CERVIX REGIONS Specimen Anatomical Collection Method Collection Time Receive d Time (Source) Location / / Volume Laterality 05/21/2001 5:26 PM 1 5:57 CDT PM CDT Hamlet Rushing MD LAB_1 Performing Organization Address [facility]/ZIP [facility] Phon e Number [address] [address] [place], [place] [phone] CHLAMYDIA - 1 SWAB (05/21/2001 5:26 PM CDT) [facility] Method Time Signature Chlamydia Negative NEG REGIONS Test Performed by PCR Assay Performed at [facility] Laboratory Source CERVIX REGIONS Specimen Anatomical Collection Method Collection Time Receive d Time (Source) Location / / Volume Laterality 05/21/2001 5:26 PM 1 5:57 CDT PM CDT Hamlet Rushing MD LAB_1 Performing Organization Address [facility] Phon e Number [address] [address] [place], [place] [phone] documented in this encounter Visit Diagnoses Not on filedocumented in this encounter Care Teams Underground Utility Locator Relationship Specialty Start Date End Date Needs Pcp, Assignment PCP - General 04/24/14 [facility] [place] [address] documented as of this encounter
--- OUTSIDE RECORDS SUMMARY | 2022-09-15 10:33 | XMS_ITS | Encounter Summary ---
:1975 Author Organization [facility] Address [address] [place] [address] Care Team Providers Name Role Phone Needs Pcp, Assignment Primary Care Provider Reason for Visit Reason Comments Hand Problem Encounter Details Date Type Department Care Team Description 05/02/2014 Surgical Consult Luis Fernando Bojorquez finger (acquired) (Primary Dx); [facility] Finger pain, left; [address] [place] [address] [place] [address] [id number] Social History Tobacco Use Types Packs/Day Years [...] Garcia MD Hand & Upper Extremity Surgeon Fisher Pound Net Or Trap: Josi Walsh Please contact Josi for all surgery scheduling and administrative questions at [phone] Please contact GARRETT Pulliam for all medical related questions at [phone] Medication Requests: Prescriptions are not filled on Weekends or on Weekdays after 3:00PM For all medication refills: Request a refill using [employer] or contact your Pharmacy Please call [phone] to make future appointments. The left small finger was injected with [id number] and lidocaine and marcaine. Avoid Strenuous Activity for the remainder of the day and avoid activities that cause pain for one to two weeks following the injection. Signs and Symptoms to watch for: If you have any redness, warmth or increasing pain at the site of the injection or develop a fever, please call [phone] documented in this encounter Progress Notes Luis Fernando Garcia MD - 05/03/2014 4:32 PM CDT Progress Notes signed by Luis Fernando Garcia MD at 05/07/14 1030 Author: Luis Fernando Garcia MD Service: (none) Author Type: Physician Filed: 05/07/14 1030 Note Time: 05/07/14812 Status: Signed Title Checker: Luis Fernando Garcia MD (Physician) NAME: VIVEK MORALES MR#: [id number] CSN: [id number] AUTHENTICATING CLINICIAN: Luis Fernando Garcia MD CONFIRM #: [id number] LOC: 711 CLINIC PROGRESS NOTE DATE OF VISIT: 05/02/2014 : 1975 CHIEF COMPLAINT: Left hand injury. 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 MEDICATIONS: Updated, reviewed, and reconciled in [facility]. ALLERGIES: No known drug allergies. REVIEW OF [...] as needed. Follow up at her discretion. MCDania:ISABELLA C: R:05/03/14 17:06 CONFIRM#:[id number] documented in this encounter Plan of Treatment Not on filedocumented as of this encounter Visit Diagnoses Diagnosis Trigger finger (acquired) - Primary Finger pain, left Pain in limb Lesion of ulnar nerve documented in this encounter Care Teams Nursing Clinical Director Relationship Specialty Start Date End Date Needs Pcp, Assignment PCP - General 04/24/14 [place] [address] documented as of this encounter
--- OUTSIDE RECORDS SUMMARY | 2022-09-15 10:33 | XMS_ITS | Encounter Summary ---
:1975 Author Organization [facility] Address [address] [address] Care Team Providers Name Role Phone Needs Pcp, Assignment Primary Care Provider Reason for Visit Reason Comments ERRONEOUS ENTRY Encounter Details Date Type Department Care Team Description 08/19/2015 Office Visit [facility] Daniel Chang ERRONE Susan ENTRY [facility] [place] (Primary Dx) [address] [facility] [address] [place] [address] [place] [address] [place], [place] [phone] (Wo rk) Social History Tobacco Use Types Packs/Day Years Used Date Smoking Tobacco: Never Smokeless Tobacco: Never Alcohol Use Standard Drinks/Week Comments No 0 (1 standard drink = 0.6 oz pure alcoho l) Sex Assigned at Date Recorded Not on file documented as of this encounter Progress Notes Dainel Chang PA-C - 09/09/2015 7:31 AM CST NESS CONTROLLER Daniel Chang PA-C - 09/09/2015 7:30 AM CST This encounter was created in error - please disregard. documented in this encounter Plan of Treatment Not on filedocumented as of this encounter Visit Diagnoses Diagnosis ERRONEOUS ENTRY - Primary documented in this encounter Care Teams Platinum Smith Relationship Specialty Start Date End Date Needs Pcp, Assignment PCP - General 04/24/14 [place] [address] documented as of this encounter
--- OUTSIDE RECORDS SUMMARY | 2022-09-15 10:33 | XMS_ITS | Encounter Summary ---
:1975 Author Organization [facility] Address [address] [place] [address] Care Team Providers Name Role Phone Needs Pcp, Assignment Primary Care Provider Encounter Details Date Type Department Care Team Description 05/21/2001 Orders Only Hamlet Wilson MD [address] [place], [place] [phone] [place] [address] (Wo rk) Social History Tobacco [...] HCG, QUAL., SERUM (05/21/2001 5:26 PM CDT) [facility] Method Time Signature HCG, Serum Negative REGIONS Qual Less than 10 mIU Specimen Anatomical Collection Method Collection Time Receive d Time (Source) Location / / Volume Laterality 05/21/2001 5:26 PM 1 5:42 CDT PM CDT Hamlet Rushing MD LAB_1 Performing Organization Address City/State/ZIP Code Phon e Number [address] [id number] [place], [place] [phone] documented in this encounter Visit Diagnoses Not on filedocumented in this encounter Care Teams Inter Com Servicer Relationship Specialty Start Date End Date Needs Pcp, Assignment PCP - General 04/24/14 [place] [address] documented as of this encounter
--- OUTSIDE RECORDS SUMMARY | 2022-09-15 10:33 | XMS_ITS | Encounter Summary ---
:1975 Author Organization [facility] Address [address] [place] [address] Care Team Providers Name Role Phone Needs Pcp, Assignment Primary Care Provider Reason for Visit Reason Comments Neck Pain Encounter Details Date Type Department Care Team Description 07/10/2015 Office Visit [facility] Daniel Gonzalez, Tendinit is of left rotator cuff (Primary Dx); [facility] Cervical radiculopathy [address] [facility] [address] [place] [address] [place] [address] [place], [place] [phone] [address] Social History Tobacco Use Types Packs/Day Years Used Date Smoking Tobacco: Never Smokeless Tobacco: Never Alcohol Use Standard Drinks/Week Comments No 0 (1 standard drink = 0.6 oz pure alcoho l) Sex Assigned at Date Recorded Not on file documented as of this encounter Patient Instructions Patient InstructionsYaritza Colón MA - 07/10/2015 9:19 AM CDT Daniel Chang PA-C Sports Medicine and General Orthopedics Field Sampling Technician: Maryjane Blanco Please contact Maryjane for all administrative questions at [phone] Please call Nurse Triage at [phone] for all medical questions Fax number: [phone] Medication Requests: Prescriptions are not filled on Weekends or on Weekdays after 3:00PM For all medication refills: Request a refill using MyChart or contact your Pharmacy If you develop new or worsening symptoms call [facility] at [phone] documented in this encounter Progress Notes Daniel Chang PA-C - 07/10/2015 9:23 PM CDT [facility] Follow-Up 07/10/2015 Chief Complaint: Left Shoulder Pain [...] with the patient; this is located in [facility] in [facility]. Physical Exam: General: The patient is in [...] sac eccentric to the right at the [id number]. Tiny right paracentral disc protrusion effaces the [...] exercises. Patient will follow up with me inaconstantino six to eight weeks' time for reexamination. [...] nos documented in this encounter Care Teams Kitchen Food Server Relationship Specialty Start Date End Date Needs Pcp, Assignment PCP - General 04/24/14 [place] [address] documented as of this encounter
--- OUTSIDE RECORDS SUMMARY | 2022-09-15 10:34 | XMS_ITS | Encounter Summary ---
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
--- OUTSIDE RECORDS SUMMARY | 2022-09-15 10:34 | XMS_ITS | Clinical Summary ---
:1975 Author Organization [facility] [place] [address] Care Team Providers Name Role Phone Shari Huizar MD Primary Care Provider [phone] Allergies No known active allergies Medications Medication [...] pain Active Problems No known active problems Encounters Date Type Specialty Care Team Description 08/20/2022 Orders Only Lucina Moore <No scans attached> 08/03/2022 Hospital Encounter Lali Garcia from Last 3 Months Social History Tobacco Use Types Packs/Day Years Used Date Never Smoker Smokeless Tobacco: Never Used Tobacco Cessation: Counseling Given: Yes Alcohol Use Standard Drinks/Week Comments Not Asked 0 (1 standard drink = 0.6 oz pure alcoho l) Sex Assigned at Date Recorded Not on file Obstetrics History Last Filed Vital Signs Vital Sign Reading Time Taken Comments Blood Pressure 120/80 12/09/2015 5:36 PM METAL STUD FRAMER Pulse 83 12/09/2015 5:36 PM METAL STUD FRAMER Temperature 37.1 ??C (98.7 ??F) 12/09/2015 5:36 PM METAL STUD FRAMER Respiratory Rate 16 04/22/2015 8:38 PM CDT Oxygen Saturation 100% 12/09/2015 5:36 PM METAL STUD FRAMER Inhaled Oxygen Concentration - - Weight 71.7 [...] for age 21-65 07/09/2024 07/09/2021, 07/09/2021, 12/03/2010 Procedures Procedure Name Priority Date/Time Associated Diagnosis Comme nts HOLTER MONITOR 24 HOURS Routine 08/09/2022 Palpitations from Last 3 Months Results HOLTER MONITOR 24 HOURS (08/09/2022) Narrative This result has an attachment that is no t available. Lali Garcia CARDIAC SERVICES ORD from Last 3 Months Insurance Payer Benefit Plan / Subscriber ID Effective Dates Phone Addre ss Type Group [employer] [place] [employer] [id number] 2020-Present [address] [address] [place] [address] [employer] OF 2012-Present [phone] [place] [address] Care Teams Oyster Opener Relationship Specialty Start Date End Date Shari Huizar MD PCP - General Family Practice 12/09/15 [facility] [place] [address]
== END 2022-09-15 10:20 | disposition home or self-care (01) ==
PROVIDERS: PCP Internal Medicine; Visit Provider Internal Medicine
DX: Z12.31 Encounter for screening mammogram for malignant neoplasm of breast (principal); R92.2 Inconclusive mammogram
CPT/HCPCS: 77063; 77067

== ENCOUNTER 2022-10-18 18:52 | Emergency (ER) | payer BC, SELFPAY ==
[2022-10-18 19:09] VITALS: BP 118/73; RESP 22; TEMP 37.1; O2SAT 96; BMI 22.3
--- NOTE | 2022-10-18 19:40 | ED.GENADULT ---
HPI - General Adult General Time Seen by Provider: 19:40 Date Seen: 10/18/22 Chief complaint: Flank Pain Stated complaint: Lower Back Pain,Possible UTI or Kidney Issue Time Seen by Provider: 10/18/22 19:33 Source: patient and RN notes reviewed Mode of arrival: ambulatory Limitations: no limitations History of Present Illness HPI narrative: Patient is a 47-year-old female coming in with concern of UTI. She has had urinary symptoms mimicking prior UTIs for her. She felt a little chilled and warm the other evening but has not documented a temperature. No nausea or vomiting. She has had no flank pain. 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 Thus, she is not completely sure if the low back pain is from her dad or maybe a symptom of her UTI. She is still urinating, does have a history of urinary retention reportedly with the UTI last year. Is not having significant abdominal pain at this time but UTIs make her quite nervous now. She did try to go to the urgent care but they were capped. She does not feel ill to the point that she would not be able to take oral medications. She states she probably just has a UTI in feels ?stupid? for being here. I have reassured her that she is fine, we have no problem evaluating her. She has had both of her ovaries removed. Related Data Home Medications Medication Instructions Recorded Confirmed conjugated estrogens PO 07/12/22 09/16/22 galcanezumab-gnlm 120 mg/mL mg subcut DIRECTED 07/12/22 09/16/22 subcutaneous pen injector levothyroxine 88 mcg capsule 90 mcg PO QDAY 07/12/22 09/16/22 etodolac 400 mg tablet 400 mg PO BID PRN 08/25/22 09/16/22 Previous Rx's Medication Instructions Recorded metoprolol tartrate 25 mg tablet 12.5 mg PO BID #60 tabs 08/12/22 metoprolol tartrate 25 mg tablet 12.5 mg PO BID Tachycardia #90 tabs 09/16/22 Allergies Allergy/AdvReac Type Severity Reaction Status Date / Time No Known Drug Allergies Allergy Verified 10/18/22 19:09 Review of Systems Status of ROS: Reports: 6 or more systems reviewed and unremarkable except as noted in History and below PFSH PFS Medical History (Updated 10/18/22 @ 20:41 by Lali Fernandez MD) ADHD Inappropriate sinus tachycardia Influenza due to influenza virus, type A, human Tachycardia Surgical History (Updated 08/11/22 @ 10:19 by LynseyPatti Yang) History of bilateral salpingo-oophorectomy (BSO) Social History Smoking Status: Never smoker How often do you have a drink containing alcohol: monthly or less AUDIT-C Alcohol total score: 1 Non-prescribed substance use: denies use service: No Exam Const: Vital Signs, click to edit/add: Vital Signs - 24 hr 10/18/22 19:09 Temperature 98.8 F Respiratory Rate 22 Blood Pressure [Ri ght Upper Arm] 118/73 Pulse Oximetry 96 Oxygen Delivery Me thod Room Air Documenting provider has reviewed patient's vital signs: yes Common normals: no apparent distress, average body habitus, oriented x3, no limitations, healthy appearing and alert General appearance: cooperative, comfortable, well kempt and well developed HENMT: Common normals: normocephalic, head/scalp atraumatic and hearing grossly normal bilaterally Head and scalp: normocephalic and atraumatic Eye: Common normals: PERRL, EOMs intact bilaterally, conjunctivae normal and no scleral icterus Conjunctiva: conjunctiva(e) normal Pupil: PERRL Resp: Common normals: normal respiratory effort, no retractions, no use of accessory muscles and clear to auscultation bilaterally Auscultation: clear to auscultation bilaterally Cardio: Common normals: regular rate, regular rhythm, S1 normal heart sound, S2 normal heart sound, no gallops and no clicks Rate: regular rate Rhythm: regular rhythm Heart sounds: S1 normal and S2 normal GI: Common normals: Normal to inspection, nondistended, normoactive bowel sounds present, soft to palpation, non-tender, no hepatosplenomegaly and no masses Palpation: soft and no hepatosplenomegaly : Common normals: no CVA tenderness Bladder/kidney exam: no CVA tenderness Back & Pelvis: Common normals: no CVA tenderness Neuro: Common normals: oriented x3 Sensorium/orientation: alert Psych: Appearance: well kempt Course Course Hospital Course: Urinalysis has been collected and is pending. I will be back with her as soon as the result is back. Will have nursing staff obtain a bladder scan just to ensure no retention. Reevaluation(s) Reevaluation #1: Microscopy certainly looks like she could have a UTI. We will culture her urine. She understands that her bladder scan is not showing retention, she had 163 mL an. It was not an immediate postvoid. I will review prior urine cultures from her other medical record, base antibiotic choice off that. Time: 20:35 Vital Signs Vital signs: Initial Vital Signs Temperature 98.8 F 10/18/22 19:09 Temperature Source Temporal Artery Scan 10/18/22 19:09 Pulse Rhythm 10/18/22 19:09 Respiratory Rate 22 10/18/22 19:09 Blood Pressure 118/73 10/18/22 19:09 Blood Pressure Mean 88 10/18/22 19:09 Blood Pressure Position Supine 10/18/22 19:09 Pulse Oximetry 96 10/18/22 19:09 Oxygen Delivery Method 10/18/22 19:09 Vital Signs Temperature 98.8 F 10/18/22 19:09 Respiratory Rate 22 10/18/22 19:09 Blood Pressure 118/73 10/18/22 19:09 Pulse Oximetry 96 10/18/22 19:09 Oxygen Delivery Method 10/18/22 19:09 Temperature 98.8 F 10/18/22 19:09 Respiratory Rate 22 10/18/22 19:09 Blood Pressure 118/73 10/18/22 19:09 Pulse Oximetry 96 10/18/22 19:09 Oxygen Delivery Method 10/18/22 19:09 Medical Decision Making Lab Data Lab results reviewed: Yes I reviewed the patient's lab results Labs: Lab Results 10/18/22 Range/Units 19:22 Urine RBC 10-25 A (0-2) Urine WBC 50-100 A (0-5) Ur Squamous Epith Cells Moderate A (None-Few) Urine Bacteria Moderate A (None) Critical Care Time Critical Care Time Critical Care Time: No Discharge Plan Discharge Clinical Impression: Urinary tract infection Patient Disposition: Home, Self-Care Condition: Stable Instructions: Urinary Tract Infection in Women (ED) Additional Instructions: Start oral antibiotic which is Keflex and take as prescribed. Drink plenty of fluids to help flush your urine. If you are not improving over the next couple days, feel you are worsening at any point, seek re-evaluation. We will obviously contact you should the urine culture require a change in antibiotics. Activity Level: No Restrictions Prescriptions: No Action levothyroxine 88 mcg capsule 90 mcg PO QDAY galcanezumab-gnlm 120 mg/mL pen injector subcut DIRECTED Rx Instructions: Once a month conjugated estrogens PO Rx Instructions: compound etodolac 400 mg tablet 400 mg PO BID PRN metoprolol tartrate 25 mg tablet 12.5 mg PO BID Qty: 60 0RF metoprolol tartrate 25 mg tablet 12.5 mg PO BID Qty: 90 3RF Rx Instructions: 50 mg in the am and 25 mg in the evening. Follow Up/Referrals: Kenan Brian MD [Primary Care Provider] - Stand Alone Forms: [employer] Info Instructions
[2022-10-18 20:01] LABS: Bacteria Urine Moderate; Squamous Epithelial Cell Urine Moderate (None-Few); WBC Urine 50-100 (0-5)
[2022-10-18 20:51] LABS: Appearance Urine Cloudy (Clear); Bilirubin Urine Negative (Negative); Blood Urine 1+ (Negative); Color Urine Yellow (Yellow); Glucose Urine Negative (Negative); Ketones Urine 1+ (Negative); Leukocyte Esterase Urine 2+ (Negative); Nitrite Urine Positive (Negative); Protein Urine Negative (Negative); Specific Gravity Urine 1.025 (1.000-1.030); Urobilinogen Urine 0.2 (0.2-1.0); pH Urine 5.5 (5.0-8.5)
== END 2022-10-18 20:48 | disposition home or self-care (01) ==
PROVIDERS: Emergency Provider Family Medicine; PCP Internal Medicine
DX: N39.0 Urinary tract infection, site not specified (principal)
CPT/HCPCS: 81003; 81015; 87086; 87186; 99283; 99284

== ENCOUNTER 2022-12-24 11:55 | Outpatient (CLI) | payer BC, SELFPAY ==
[2022-12-24 15:28] LABS: Chlamydia DNA Amplified* NOT DETECTED (No Detected); GC DNA Amplified* NOT DETECTED (No Detected)
== END 2022-12-24 11:56 | disposition home or self-care (01) ==
PROVIDERS: PCP Internal Medicine; Visit Provider Registered Nurse
DX: N89.8 Other specified noninflammatory disorders of vagina (principal); N94.9 Unspecified condition associated with female genital organs and menstrual cycle
CPT/HCPCS: 87491; 87591

== ENCOUNTER 2023-01-19 10:02 | Emergency (ER) | payer BC, SELFPAY ==
[2023-01-19 10:07] VITALS: BP 130/96; PULSE 92; RESP 20; TEMP 37; O2SAT 99; BMI 23.7
--- NOTE | 2023-01-19 10:22 | CRLHL7_ITS ---
For Patients: As a result of the Cures Act, medical imaging exams and procedure reports are released immediately into your electronic medical record. You may view this report before your referring provider. If you have questions, please contact your health care provider. Indication: Right hand injury if injury to 5th digit Comparison: None available. Technique: AP, lateral, and oblique views right hand were obtained. Findings: There is a nondisplaced fracture at the base of the proximal aspect of the distal 5th phalanx. No other displaced injuries are appreciated. The joint spaces are grossly preserved. There is moderate 5th digit soft tissue swelling with questionable superficial laceration. Impression: Nondisplaced fracture at the proximal aspect of the distal 5th phalanx with associated soft tissue swelling. Dictated by Garrett Levy MD @ 01/19/2023 12:00:18 PM (Electronically Signed)
--- NOTE | 2023-01-19 10:27 | ED.GENADULT ---
HPI - General Adult General Chief complaint: Extremity Pain/Injury, Upper Stated complaint: Lac R hand Time Seen by Provider: 01/19/23 10:03 History of Present Illness HPI narrative: The patient is a 47 year white female was on her way to work slipped on ice injured her right 5th digit she landed directly on her little finger and avulsed the nail and nail bed at the base of the nail. Patient has lot of discomfort in the area. Procedures to the ER for evaluation. Does not or tetanus off hand. Not allergic to medication. Past medical history of thyroid nodule suicide ideation retention of urine OCD migraine impingement syndrome depression anxiety anemia ADHD Related Data Home Medications Medication Instructions Recorded Confirmed conjugated estrogens PO 07/12/22 12/24/22 galcanezumab-gnlm 120 mg/mL mg subcut DIRECTED 07/12/22 12/24/22 subcutaneous pen injector levothyroxine 88 mcg capsule 90 mcg PO QDAY 07/12/22 12/24/22 Previous Rx's Medication Instructions Recorded carvedilol 12.5 mg tablet 12.5 mg PO BID Tachycardia #60 tabs 12/17/22 metronidazole 500 mg tablet 500 mg PO BID #14 tabs 12/24/22 cephalexin 500 mg capsule 500 mg PO QID #20 caps 01/19/23 hydrocodone 5 mg-acetaminophen 325 1 tab PO Q6H PRN pain #14 tabs 01/19/23 mg tablet Allergies Allergy/AdvReac Type Severity Reaction Status Date / Time No Known Drug Allergies Allergy Verified 01/19/23 10:06 Review of Systems Narrative: No history of prior finger injuries, no history of infection problems PFSH PFSH Medical History Inappropriate sinus tachycardia Tachycardia Surgical History History of bilateral salpingo-oophorectomy (BSO) Family History Father Heart disease Diabetes Maternal Grandmother Breast cancer Diabetes Mother Thyroid disease Paternal Grandmother Osteoporosis Uncle Abuse, drug or alcohol Social History Smoking Status: Former smoker How often do you have a drink containing alcohol: monthly or less AUDIT-C Alcohol total score: 1 Non-prescribed substance use: denies use service: No Exam Narrative: Exam Narrative: Objective: Patient has an open wound at the base of her nail on the 5th finger. She has got a mallet type deformity of the D IP. There is no obvious other open wounds. Mild tenderness throughout the finger. No other findings in the hand. Patient denies any other discomfort or injury. No head or neck problems no back pain. Const: Vital Signs, click to edit/add: Vital Signs - 24 hr 01/19/23 10:07 Temperature 98.6 F Pulse Rate [Pulse Oximeter] 92 Respiratory Rate 20 Blood Pressure [Le ft Forearm] 130/96 H Pulse Oximetry 99 Oxygen Delivery Me thod Room Air Course Vital Signs Vital signs: Initial Vital Signs Temperature 98.6 F 01/19/23 10:07 Temperature Source Temporal Artery Scan 01/19/23 10:07 Pulse Rate 92 01/19/23 10:07 Pulse Rhythm Regular 01/19/23 10:07 Respiratory Rate 20 01/19/23 10:07 Blood Pressure 130/96 H 01/19/23 10:07 Blood Pressure Mean 107 01/19/23 10:07 Pulse Oximetry 99 01/19/23 10:07 Oxygen Delivery Method Room Air 01/19/23 10:07 Vital Signs Temperature 98.6 F 01/19/23 10:07 Pulse Rate 92 01/19/23 10:07 Respiratory Rate 20 01/19/23 10:07 Blood Pressure 130/96 H 01/19/23 10:07 Pulse Oximetry 99 01/19/23 10:07 Oxygen Delivery Method Room Air 01/19/23 10:07 Temperature 98.6 F 01/19/23 10:07 Pulse Rate 92 01/19/23 10:07 Respiratory Rate 20 01/19/23 10:07 Blood Pressure 130/96 H 01/19/23 10:07 Pulse Oximetry 99 01/19/23 10:07 Oxygen Delivery Method Room Air 01/19/23 10:07 Medical Decision Making [facility] Narrative Medical decision making narrative: Procedure: After sterile scrub injection of 1% xylocaine without epinephrine used at the base of the 5th finger I was able to try and relocate the base of the fingernail although most of the soft tissue and skin around the base of the nail that holds it is gone. I was able to put a hot tip cautery through the nail on each side and suture the nail to the nail bed this was done left. This was done laterally not at the in the nail bed itself proximally. X-ray of the fingers pending. Tdap will be given as needed, Keflex orally, [place] orally. Addendum: The patient has a fracture of the distal phalanx, right underneath where she has got an open nail bed injury. The [facility] was summoned and is able to see the patient storm [place] later today. Patient agrees to go for that appointment. May need surgery may need consultation. Disposition pending the hand surgeon. Danny was comfortable plan Discharge Plan Discharge Clinical Impression: Injury of nail bed of finger of right hand Patient Disposition: Home w/ Parent or Adult Condition: Improved Additional Instructions: Light activity, keep the finger covered for 48 hours. Follow up with Orthopedics as scheduled. Keflex 500 four times per day x5 days, [place] as needed for pain, may use Advil as well. Would not use the hand until follow-up with Orthopedics. Follow up appointment is scheduled at [facility] on 01/19 with a 1:45pm arrival time. Please bring your insurance information and photo ID. If you have any questions or need to reschedule, please call [phone]. [facility] [address] [place] [id number] Activity Level: Light activity Discharge Diet: Regular Prescriptions: New cephalexin 500 mg capsule 500 mg PO QID Qty: 20 0RF hydrocodone-acetaminophen 5-325 mg tablet 1 tab PO Q6H PRN (Reason: pain) Qty: 14 0RF No Action metronidazole 500 mg tablet 500 mg PO BID Qty: 14 0RF levothyroxine 88 mcg capsule 90 mcg PO QDAY galcanezumab-gnlm 120 mg/mL pen injector subcut DIRECTED Rx Instructions: Once a month conjugated estrogens PO Rx Instructions: compound carvedilol 12.5 mg tablet 12.5 mg PO BID Qty: 60 0RF Rx Instructions: must administer with a meal/food Follow Up/Referrals: Kenan Brian MD [Primary Care Provider] - Stand Alone [facility]
[2023-01-19] MEDS: cephALEXin 500 MG CAPSULE PO (10:28)
[2023-01-19] MEDS: HYDROCODONE/ACETAMIN 7.5-325 TABLET 1 TAB PO (10:29)
[2023-01-19] MEDS: TETANUS/DIPHTH/PERTUSSIS 0.5 ML SYRINGE IM (10:29)
== END 2023-01-19 11:13 | disposition home or self-care (01) ==
LOC: ED 11:00
PROVIDERS: Emergency Provider Family Medicine; PCP Internal Medicine
DX: S62.521A Displaced fracture of distal phalanx of right thumb, initial encounter for closed fracture (principal); S61.101A Unspecified open wound of right thumb with damage to nail, initial encounter; W00.0XXA Fall on same level due to ice and snow, initial encounter
CPT/HCPCS: 73130; 90471; 90715; 96372; 99284; A9270

== ENCOUNTER 2023-06-17 13:49 | Outpatient (CLI) | payer BC, SELFPAY ==
[2023-06-17 19:12] LABS: Chlamydia DNA Amplified* NOT DETECTED (No Detected); GC DNA Amplified* NOT DETECTED (No Detected)
== END 2023-06-17 13:50 | disposition home or self-care (01) ==
PROVIDERS: PCP Internal Medicine; Visit Provider Obstetrics & Gynecology
DX: R10.2 Pelvic and perineal pain (principal); R10.9 Unspecified abdominal pain
CPT/HCPCS: 87491; 87591

== ENCOUNTER 2023-08-26 12:56 | Outpatient (CLI) | payer BC, SELFPAY | END 2023-08-26 12:57 | disposition home or self-care (01) | LOC: NFLDREF 08-29 12:00 | PROVIDERS: PCP Internal Medicine; Referring Provider Internal Medicine; Visit Provider Internal Medicine | DX: R35.0 Frequency of micturition (principal); Z11.3 Encounter for screening for infections with a predominantly sexual mode of transmission | CPT/HCPCS: 87086 ==

== ENCOUNTER 2023-09-20 17:21 | Outpatient (CLI) | payer BC, SELFPAY ==
[2023-09-20 23:19] LABS: Chlamydia DNA Amplified* NOT DETECTED (No Detected); GC DNA Amplified* NOT DETECTED (No Detected)
== END 2023-09-20 17:22 | disposition home or self-care (01) ==
PROVIDERS: PCP Internal Medicine; Visit Provider Physician Assistant
DX: Z11.3 Encounter for screening for infections with a predominantly sexual mode of transmission (principal)
CPT/HCPCS: 86592; 86703; 86803; 87340; 87491; 87591

== ENCOUNTER 2024-02-17 12:02 | Outpatient (CLI) | payer MEDICAID, SELFPAY ==
--- OUTSIDE RECORDS SUMMARY | 2024-02-17 12:06 | XMS_ITS | Clinical Summary ---
Author Name Unknown [facility] Address [address] [place] [address] Care Team Providers Care Hardwood Finisher Name Role Phone Needs Pcp, Assignment Primary Care Provider [phone] Source Comments You are receiving this document as you are listed as the primary care provider,follow-up provider, or the patient has been referred to you for consultation.This is in compliance with the Medicare and[facility] E[facility] Incentive Program,which states Providers who transition their patient to another setting of careor provider of care or refers their patient to another provider of care shouldprovide summary care record for each transition of care or referral. [facility] Allergies No known active allergies Medications Medication Sig Dispensed Refills Start Date End Date Status ondansetron (ZOFRAN-ODT) 4 MG disintegrating tablet Take 1-2 Tabs by mouth every 8 hours as needed for Nausea or Other (Headache). 60 Tab 3 02/21/2018 Active SUMAtriptan (IMITREX) 100 MG tabletIndications:Mi graine without aura and without status migrainosus, not intractable TAKE 1 TABLET BY MOUTH AT ONSET OF MIGRAINE. REPEAT NEEDED IN 1-2 HOURS. MAX 2 A DAY. MAX 9 DAYS PER MONTH 12 Tablet 09/14/2018 Active progesterone micronized (PROMETRIUM) 200 MG capsule Take 200 mg by mouth daily. Active levothyroxine (SYNTHROID) 100 MCG tablet Take 100 mcg by mouth daily. Active medical cannabis patient certifiedIndications :Bilateral occipital neuralgia,Other complicated headache syndrome,Medical marijuana use Take as instructed . Active tiZANidine (ZANAFLEX) 2 MG tablet Take 1 Tablet by mouth every 8 hours as needed. 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 7 Tablet 02/04/2021 Active VYVANSE 20 MG capsule Take 20 mg by mouth daily. 12/23/2020 Active HEAD OF SALES AND MARKETING THYROID 90 MG tablet TAKE 1 TABLET BY MOUTH IN THE MORNING AND 30 MINUTES BEFORE FOOD 02/04/2021 Active tretinoin (RETIN-A) 0.025 % cream APPLY TO THE FACE EVERY NIGHT FOLLOWED BY A MOISTURIZER FOR 30 DAYS 01/18/2021 Active triamcinolone acetonide (KENALOG) 0.1 % cream Apply topically two times a day. 11/12/2020 Active topiramate (TOPAMAX) 25 MG capsuleIndications:7 5mg QHS Take 25 mg by mouth. Indications: 75mg QHS Active DULoxetine (CYMBALTA) 30 MG capsule TAKE 2 CAPSULES BY MOUTH DAILY 60 Capsule 3 04/30/2021 Active Hospital, Clinic, or Other Facility Administered Medication Ordered Dose Route Frequency Start Date End Date Status fentaNYL (SUBLIMAZE) injection 25-100 mcgIndications: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) 25 - 100 mcg IV PRN 04/28/2018 Active midazolam (VERSED) injection 1-2 mgIndications: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) 1 - 2 mg IV PRN 04/28/2018 Active Active Problems Problem Noted Date Diagnosed Date Bilateral occipital neuralgia 03/11/2020 Trigger finger Migraines Herniated disc, cervical (ACG) Overview: C6-C7 Family History Medical History Relation Name Comments Hypertension Father Relation Name Status Comments Father Alive Mother Alive Sister Alive Social History Tobacco Use Types Packs/Day Years Used Date Smoking Tobacco: Never Smokeless Tobacco: Never Alcohol Use Standard Drinks/Week Comments Yes 0 (1 standard drink = 0.6 oz pur e alcohol) rarely Sex and Gender Information Value Date Recorded Sex Assigned at Not on file Gender Identity Not on file Sexual Orientation Not on file Last Filed Vital Signs Vital Sign Reading Time Taken Comments Blood Pressure 140/87 10/02/2019 10:04 AM RESERVOIR ENGINEERING CONSULTANT Pulse 84 10/02/2019 10:04 AM RESERVOIR ENGINEERING CONSULTANT Temperature 36.4 ??C (97.5 ??F) 04/28/2018 9:04 AM CD T Respiratory Rate 16 10/02/2019 10:04 AM RESERVOIR ENGINEERING CONSULTANT Oxygen Saturation 99% 10/02/2019 10:04 AM RESERVOIR ENGINEERING CONSULTANT Inhaled Oxygen Concentration - - Weight 77.6 kg (171 lb) 02/09/2021 7:43 AM CDT Height 181.6 cm (5' 11.5) 03/11/2020 10:08 AM C DT Body Mass Index 23.52 03/11/2020 10:08 AM CDT Plan of Treatment Health Maintenance Due Date Last Done Comments Cervical Cancer Screening Due 1973 Colon Cancer Screening Plan Due 1973 Hep C Screening (Preventive Services) 1973 Mammogram 1973 HIV Screening (Preventive Services) 1989 Adult Preventive Visit 1991 HepB (1) 1992 Cholesterol 2018 DTaP/Tdap/Td (2 - Tdap) 05/14/2019 05/14/2009 Zoster/Shingles (1 of 2) 2023 COVID-19 Vaccine (1 - 2022-2 4 season) 2023 Influenza (#1) 2023 07/27/2018, 09/29/2017, 09/16/2004 HepA Aged Out No longer eligi ble based on patient's age to complete this topic Hib Aged Out No longer eligi ble based on patient's age to complete this topic IPV (Polio) Aged Out No longer eligi ble based on patient's age to complete this topic MCV4 Aged Out No longer eligi ble based on patient's age to complete this topic Pneumococcal Aged Out No longer eligi ble based on patient's age to complete this topic Care Teams Hardwood Finisher Relationship Specialty Start Date End Date Needs Pcp, [place] [address] PCP - General 04/24/14
--- OUTSIDE RECORDS SUMMARY | 2024-02-17 12:06 | XMS_ITS | Clinical Summary ---
Author Name Unknown Organization [facility] Address [place], [place] [address] Care Team Providers Care Negative Turner Name Role Phone Kenan Brian MD Primary Care Provider Allergies No known active allergies Medications Medication Sig Dispensed Refills Start Date End Date Status ferrous sulfate, 65 mg elemental, 325 mg (65 mg Iron) EC tablet Take 1 tablet by mouth once daily. 0 08/10/2010 Active ibuprofen (ADVIL; MOTRIN) 800 mg tablet Take 1 tablet by mouth 3 times daily if needed. 30 tablet 0 08/14/2013 Active clobetasol cream 0.05% (TEMOVATE) 0.05 % cream APPLY TWICE DAILY TO LEFT RING FINGER UP TO 2 WEEKS/MONTH NEEDED 09/03/2022 Active galcanezumab-gnlm (EMGALITY) 120 mg/mL pen Inject 120 mg subcutaneous once a month. 03/23/2021 Active thyroid (ARMOUR THYROID) 90 mg tablet Take 90 mg by mouth once daily. 02/04/2021 Active progesterone micronized (PROMETRIUM) 200 mg capsule Take 200 mg by mouth. Daily Active rimegepant (NURTEC) 75 mg orally disintegrating tablet Take 75 mg by mouth one time if needed. 06/24/2022 Active rizatriptan (MAXALT TOBACCO ACREAGE MEASURER) 10 mg disintegrating tablet Take 10 mg by mouth one time if needed. 03/23/2021 Active etodolac (LODINE) 400 mg tablet Take 1 Tablet (400 mg) by mouth. Twice daily as needed 0 12/23/2022 Active magnesium oxide (Mag-Ox) 400 mg tablet Take 1 Tablet (400 mg) by mouth once daily. 0 12/23/2022 Active carvediloL (Coreg) 6.25 mg tabletIndications:Ta chycardia Taper Coreg as follows- Take 6.25 mg twice a day for one week. Then 6.25 mg daily for 1 week then DISCONTINUE 21 Tablet 12/23/2022 Active Active Problems No known active problems Social History Tobacco Use Types Packs/Day Years Used Date Smoking Tobacco: Never Smokeless Tobacco: Never Tobacco Cessation:Counseling Given: Yes Alcohol Use Standard Drinks/Week Comments Yes 0 (1 standard drink = 0.6 oz pur e alcohol) Rarely Social Connections Answer Date Recorded Frequency of Communication with Friends and Fami ly Not on file 12/23/2022 Financial Resource Strain Answer Date R ecorded Difficulty of Paying Living Expenses Not on file 10/26/2021 Difficulty of Paying Living Expenses Not on file 10/26/2021 Sex and Gender Information Value Date Recorded Sex Assigned at Not on file Gender Identity Not on file Sexual Orientation Not on file Obstetrics History Last Filed Vital Signs Vital Sign Reading Time Taken Comments Blood Pressure 107/74 12/23/2022 3:51 PM CLIN NURSE Pulse 63 12/23/2022 3:51 PM CLIN NURSE Temperature 37.1 ??C (98.7 ??F) 12/09/2015 5:36 PM CS T Respiratory Rate 16 04/22/2015 8:38 PM CDT Oxygen Saturation 99% 12/23/2022 3:51 PM CLIN NURSE Inhaled Oxygen Concentration - - Weight 80.7 kg (178 lb) 12/23/2022 3:51 PM CLIN NURSE Height 180.3 cm (5' 11) 12/23/2022 3:51 PM CLIN NURSE Body Mass Index 24.83 12/23/2022 3:51 PM CLIN NURSE Plan of Treatment Health Maintenance Due Date Last Done Comments Tdap 1984 Depression screening for age 12+ 1985 HIV for age 15-65 1988 Hepatitis C screening for ag e 18-79 1991 Tetanus booster 1993 Colonoscopy through age 75 2018 Lipids for age 45-75 2018 Mammogram for age 45-75 2018 Zoster (shingles) series for age 50+ (1 of 2) 2023 COVID-19 vaccine series (2022- season) 2023 BMI (ht and wt on same day) for age 18+ 12/23/2023 12/23/2022 Influenza for age 50-64 07/01/2024 Pap test for age 21-65 07/09/2024 , 07/09/2021, 12/03/2010 Pneumococcal series for age 6-64 Aged Out No longer eligible b ased on patient's age to complete this topic Procedures Procedure Name Priority Date/Time Associated Diagnosis Comments HPV THIN PREP Routine 07/09/2021 3:10 PM CDT from Last 3 Months or Most Recently Relevant to Health Maintenance Results * HPV HIGH RISK (07/09/2021 3:10 PM CDT) TYPE 16 Negative Negative 07/14/2021 12:13 PM CDT [facility] TYPE 18 Negative Negative 07/14/2021 12:13 PM CDT [facility] OTHER HIGH RISK TYPES Negative Negative 07/14/2021 12:13 PM CDT [facility] Other (Cervical/Vagina l) 07/09/2021 3:10 PM CDT 07/13/2021 10:14 AM CDT Narrative [facility] - 07/14/2021 12:13 PM CDT HPV types 16, 18, 31, 33, 35, 39, 45, 51, 52, 56, 58, 59, 66 and 68 DNA were undetectable or below the pre-set threshold. Methodology: Brandon Belia 4800 HPV Test January Marah [facility] [address] [place] [address], [place] from Last 3 Months or Most Recently Relevant to Health Maintenance Care Teams Negative Turner Relationship Specialty Start Date End Date Kenan Brian MD [address] [place] [address] PCP - General Internal Medicine 12/23/22
[2024-02-17 16:11] LABS: Chlamydia DNA Amplified* NOT DETECTED (No Detected); GC DNA Amplified* NOT DETECTED (No Detected)
== END 2024-02-17 12:03 | disposition home or self-care (01) ==
PROVIDERS: PCP Internal Medicine; Visit Provider Registered Nurse
DX: Z11.3 Encounter for screening for infections with a predominantly sexual mode of transmission (principal)
CPT/HCPCS: 86592; 86703; 86706; 86803; 87340; 87491; 87591

== ENCOUNTER 2024-06-25 07:30 | Outpatient (RCR) | payer MEDICAID, SELFPAY | END 2024-07-17 14:10 | disposition home or self-care (01) | PROVIDERS: PCP Internal Medicine; Visit Provider Family Medicine | DX: M54.50 Low back pain, unspecified (principal); M54.2 Cervicalgia; Z51.89 Encounter for other specified aftercare | CPT/HCPCS: 97140; 97161; 97530 ==

== ENCOUNTER 2024-07-04 08:21 | Outpatient (CLI) | payer MEDICAID, SELFPAY ==
--- NOTE | 2024-07-04 08:15 | CRLHL7_ITS ---
For Patients: As a result of the Century Cures Act, medical imaging exams and procedure reports are released immediately into your electronic medical record. You may view this report before your referring provider. If you have questions, please contact your health care provider. Indication: Cervical spondylosis. Technique: Multisequence multiplanar MRI of the cervical spine without the use of intravenous contrast. Comparison: MRI cervical spine dated 11/26/2016. Findings: Trace 2 mm grade 1 anterolisthesis at C2-C3. Vertebral body heights are maintained. No T1 hypointense infiltrative lesion is identified. There is similar multilevel disc desiccation and height loss, most pronounced at C6-C7, where there is surrounding Modic type 1 degenerative endplate signal. The cervical spinal cord is normal in signal intensity. The paraspinal soft tissues are unremarkable. C2-C3: Shallow symmetric disc bulge. No significant spinal canal or right neural foraminal narrowing. Worsening of mild left neural foraminal narrowing associated with facet joint arthrosis. C3-C4: Small posterior disc osteophyte complex. No significant spinal canal or neural foraminal stenosis. C4-C5: Small posterior disc osteophyte complex. No significant spinal canal or neural foraminal stenosis. C5-C6: Small posterior disc osteophyte complex indenting the ventral thecal sac. No significant spinal canal stenosis or right neural foraminal narrowing. Mild-moderate left neural foraminal narrowing associated with uncovertebral and facet joint arthrosis. C6-C7: Mild spinal canal stenosis resulting from posterior disc osteophyte complex. Slight worsening of mild-moderate bilateral neural foraminal narrowing associated with uncovertebral and facet joint arthrosis. C7-T1: No significant spinal canal or neural foraminal stenosis. Impression: 1. No evidence of acute injury. 2. At C2-C3, new trace grade 1 anterolisthesis and slight worsening of mild left neural foraminal narrowing associated with facet joint hypertrophy. 3. At C5-C6, slight worsening of mild-moderate left neural foraminal narrowing. 4. At C6-C7 slight worsening of mild spinal canal stenosis and mild-moderate bilateral neural foraminal narrowing. Dictated by Tani Kumar MD @ 07/04/2024 1:05:40 PM (Electronically Signed)
--- OUTSIDE RECORDS SUMMARY | 2024-07-04 08:23 | XMS_ITS | Clinical Summary ---
[facility] Organization [facility] Address [address] [place] [address] Care Team Providers Care Hotel Night Auditor Name Role Phone Needs Pcp, Assignment Primary Care Provider [phone] Source Comments You are receiving this document as you are listed as the primary care provider,follow-up provider, or the patient has been referred to you for consultation.This is in compliance with the Medicare and[facility] Hospitalcaid EHR Incentive Program,which states Providers who transition their patient to another setting of careor provider of care or refers their patient to another provider of care shouldprovide summary care record for each transition of care or referral. [facility] Allergies No known active allergies Medications Medication [...] 20 mg by mouth daily. 12/23/2020 Active BIOTECH PRODUCTION SPECIALIST THYROID 90 MG tablet TAKE 1 TABLET [...] Trigger finger Migraines Herniated disc, cervical (ACG) Overview (07/27/2018): C6-C7 Family History Medical History Relation Name [...] Comments Blood Pressure 140/87 10/02/2019 10:04 AM CASINO PORTER Pulse 84 10/02/2019 10:04 AM CASINO PORTER Temperature 36.4 ??C (97.5 ??F) 04/28/2018 9:04 AM CD T Respiratory Rate 16 10/02/2019 10:04 AM CASINO PORTER Oxygen Saturation 99% 10/02/2019 10:04 AM CASINO PORTER Inhaled Oxygen Concentration - - Weight 77.6 [...] COVID-19 Vaccine (1 - 2022-2 4 season) 2024 Influenza (#1) 2024 07/27/2018, 09/29/2017, 09/16/2004 HepA Aged Out No [...] age to complete this topic Care Teams Hotel Night Auditor Relationship Specialty Start Date End Date Needs Pcp, [place] [address] PCP - General 04/24/14
--- OUTSIDE RECORDS SUMMARY | 2024-07-04 08:23 | XMS_ITS | Clinical Summary ---
Author Organization [employer] [facility] Address [place], [place] [address] Care Team Providers Care Link Trainer Operator Name Role Phone Kenan Brian MD Primary [...] time if needed. 06/24/2022 Active rizatriptan (MAXALT SUPERVISOR HAND WORKERS) 10 mg disintegrating tablet Take 10 mg by mouth one time if needed. 03/23/2021 Active magnesium oxide (Mag-Ox) 400 mg tablet Take 1 Tablet (400 mg) by mouth once daily. 0 12/23/2022 Active etodolac (LODINE) 400 mg tablet Take 1 Tablet (400 mg) by mouth. Twice daily as needed 0 12/23/2022 4 Discontinu ed(*Patien t states no longer taking) carvediloL (Coreg) 6.25 mg tabletIndications:T achycardia Taper Coreg as follows- Take 6.25 mg twice a day for one week. Then 6.25 mg daily for 1 week then DISCONTINUE 21 Tablet 12/23/2022 Discontinu ed(*Patien t states no longer taking) Active Problems No known active problems Encounters Date Type Department Care Team Description 06/27/2024 2:20 PM CDT Orders Only [facility] [address] [facility] [address] [place] [address] Lab 06/27/2024 1:30 PM CDT Office Visit [facility] [address] [facility] [address] [place] [address] Elsa, JORGE A Varela CV General Cardiology Est (Routine general medical examination at a health care facility /Tachycardia /Palpitations /Other chest pain //PCP: Kenan Brian MD/) 06/27/2024 Travel from Last 3 Months Social History Tobacco Use Types Packs/Day Years Used Date Smoking Tobacco: Never Smokeless Tobacco: Never Tobacco Cessation:Counseling Given: Yes Alcohol Use Standard Drinks/Week Comments Yes 1 (1 standard drink = 0.6 oz pur e alcohol) Social Connections Answer Date Recorded Frequency of [...] Sign Reading Time Taken Comments Blood Pressure 128/89 06/27/2024 1:43 PM CDT Pulse 80 06/27/2024 1:43 PM CDT Temperature 37.1 ??C (98.7 ??F) 12/09/2015 5:36 PM CS T Respiratory Rate 16 04/22/2015 8:38 PM CDT Oxygen Saturation 98% 06/27/2024 1:43 PM CDT Inhaled Oxygen Concentration - - Weight 69.3 kg (152 lb 12.8 oz) 06/27/2024 1:43 PM CDT Height 180.3 cm (5' 10.98) 06/27/2024 1:43 PM C DT Body Mass Index 21.32 06/27/2024 1:43 PM CDT Plan of Treatment Health Maintenance [...] 2) 2023 COVID-19 vaccine series (2022- season) 2024 Influenza for age 50-64 07/01/2024 Pap test for age 21-65 07/09/2024 , 07/09/2021, 12/03/2010 BMI (ht and wt on same day) for age 18+ 06/27/2025 06/27/2024, 12/23/2022 Pneumococcal series for age 6-64 Aged Out No longer eligible b ased on patient's age to complete this topic Procedures Procedure Name Priority Date/Time Associated Diagnosis Comments TSH WITH REFLEX Routine 06/27/2024 2:29 PM CDT Palpitations MAGNESIUM Routine 06/27/2024 2:29 PM CDT Palpitations BASIC METABOLIC PANEL Routine 06/27/2024 2:29 PM CDT Palpitations HPV THIN PREP Routine 07/09/2021 3:10 PM CDT from Last 3 Months or Most Recently Relevant to Health Maintenance Results * TSH WITH REFLEX (06/27/2024 2:29 PM CDT) TSH 0.45 0.27 - 4.20 uIU/mL 06/27/2024 4:04 PM CDT [facility] Blood BLOOD SPECIMEN / Unknown Non-Lab Venipuncture / Unknown 06/27/2024 2:29 PM CDT 06/27/2024 2:40 PM CDT Narrative [facility] - 06/27/2024 4:04 PM CDT In Adults, TSH values between 5.00 and 10.00 uIU/ml do not necessarily indicate the presence of Hypothyroidism. Correlation with clinical findings such as presence of goiter and/or Thyroperoxidase (TPO) Antibody may be helpful. For more information please refer to NIVIA 2004; 291: 228-238. German JULES CHEMISTRY Performing Organization Address City/[facility]/ZIP Co de Phone Number [facility] [address] [place] [address], * MAGNESIUM (06/27/2024 2:29 PM CDT) Pathologist [facility] MAGNESIUM 2.1 1.6 - 2.6 mg/dL 06/27/2024 4:04 PM CDT [facility] Blood BLOOD SPECIMEN / Unknown Non-Lab Venipuncture / Unknown 06/27/2024 2:29 PM CDT 06/27/2024 2:40 PM CDT German JULES CHEMISTRY [facility] [address] [place] [address], * BASIC METABOLIC PANEL (06/27/2024 2:29 PM CDT) SODIUM 137 136 - 145 mmol/L 06/27/2024 4:04 PM CDT [facility] POTASSIUM 4.5 3.5 - 5.1 mmol/L 06/27/2024 4:04 PM CDT [facility] CHLORIDE 102 98 - 107 mmol/L 06/27/2024 4:04 PM CDT [facility] CO2,TOTAL 27 22 - 29 mmol/L 06/27/2024 4:04 PM CDT [facility] ANION GAP 8 5 - 18 06/27/2024 4:04 PM CDT [facility] GLUCOSE 82 70 - 99 mg/dL 06/27/2024 4:04 PM CDT [facility] CALCIUM 8.9 8.6 - 10.0 mg/dL 06/27/2024 4:04 PM CDT [facility] BUN 7 6 - 20 mg/dL 06/27/2024 4:04 PM CDT [facility] CREATININE 0.65 0.50 - 0.90 mg/dL 06/27/2024 4:04 PM CDT [facility] BUN/CREAT RATIO 11 10 - 20 4:04 PM CDT [facility] eGFR >90 >90 mL/min/1.7 3m2 06/27/2024 4:04 PM CDT [facility] Comment:As of 2022, eG FR is calculated by the CKD-EPI creatinine equation without race adjustment. ??eGFR can be influenced by muscle mass, exercise, and diet. ??The reported eGFR is an estimation only and is only applicable if the renal function is stable. Blood BLOOD SPECIMEN / Unknown Non-Lab Venipuncture / Unknown 06/27/2024 2:29 PM CDT 06/27/2024 2:40 PM CDT [facility]MI[facility] [address] [place] [address], * HPV HIGH RISK (07/09/2021 3:10 PM CDT) TYPE 16 Negative Negative 07/14/2021 12:[address] [facility] TYPE 18 Negative Negative 07/14/2021 12:[address] [facility] OTHER HIGH RISK TYPES Negative Negative 07/14/2021 12:[address] [facility] Other (Cervical/Vagina l) 07/09/2021 3:10 PM CDT 07/13/2021 10:14 AM CDT Narrative [facility] - 07/14/2021 12:13 PM CDT HPV types 16, 18, 31, 33, 35, 39, 45, 51, 52, 56, 58, 59, 66 and 68 DNA were undetectable or below the pre-set threshold. Methodology: Brandon Belia 4800 HPV Test January Marah PERLA MICROBIOLOGY [facility] [address] [place] [address], from Last 3 Months or Most Recently Relevant to Health Maintenance Care Teams Link Trainer Operator Relationship Specialty Start Date End Date Kenan Brian MD [address] [place] [address] PCP - General Internal Medicine 12/23/22
== END 2024-07-04 08:22 | disposition home or self-care (01) ==
LOC: MRI 08:22
PROVIDERS: PCP Internal Medicine; Visit Provider Family Medicine
DX: M47.812 Spondylosis without myelopathy or radiculopathy, cervical region (principal); M50.222 Other cervical disc displacement at C5-C6 level; M48.02 Spinal stenosis, cervical region; M54.12 Radiculopathy, cervical region
CPT/HCPCS: 72141

== ENCOUNTER 2024-09-03 08:59 | Outpatient (CLI) | payer MEDICAID, SELFPAY ==
--- OUTSIDE RECORDS SUMMARY | 2024-09-03 09:05 | XMS_ITS | Clinical Summary ---
Author Organization [employer] [facility] Address [place], [place] [address] Care Team Providers Care Leather Cleaner Name Role Phone Kenan Brian MD Primary [...] time if needed. 06/24/2022 Active rizatriptan (MAXALT CUTTER OPERATOR BRICK) 10 mg disintegrating tablet Take 10 mg by mouth one time if needed. 03/23/2021 Active magnesium oxide (Mag-Ox) 400 mg tablet Take 1 Tablet (400 mg) by mouth once daily. 0 12/23/2022 Active metoprolol tartrate (LOPRESSOR) 25 mg tabletIndications:Pa lpitations Take 0.5 Tablets (12.5 mg) by mouth two times daily. Please call [phone] 2 months in advance to schedule an office visit due in Dec 2024 45 Tablet 1 07/25/2024 Active Active Problems No known active problems Encounters Date Type Department Care Team Description 07/19/2024 Telephone [facility] [address] [facility] [address] [place] [address] German Hunter PA Results (Zio results 06/27/24) 06/27/2024 2:20 PM CDT Orders Only [facility] [address] [facility] [address] [place] [address] Lab 06/27/2024 1:30 PM CDT Office Visit [facility] [address] [facility] [address] [place] [address] German Hunter PA CV General Cardiology Est (Routine general medical [...] (1 of 2) 2023 COVID-19 vaccine series (2023- season) 2024 Influenza for age 50-64 07/01/2024 [...] PANEL Routine 06/27/2024 2:29 PM CDT Palpitations EXTENDED HOLTER Routine 06/27/2024 12:00 AM CDT Tachycardia Palpitations HPV HIGH RISK Routine 07/09/2021 3:10 PM CDT from Last 3 Months or Most Recently Relevant to Health Maintenance Results * TSH WITH REFLEX (06/27/2024 2:29 PM CDT) TSH 0.45 0.27 - 4.20 uIU/mL 06/27/2024 4:04 PM CDT [facility] Blood BLOOD SPECIMEN / Unknown Non-Lab Venipuncture / Unknown 06/27/2024 2:29 PM CDT 06/27/2024 2:40 PM CDT Narrative [facility] - 06/27/2024 4:04 PM CDT In Adults, TSH values between 5.00 and 10.00 uIU/ml do not necessarily indicate the presence of Hypothyroidism. Correlation with clinical findings such as presence of goiter and/or Thyroperoxidase (TPO) Antibody may be helpful. For more information please refer to NIVIA 2004; 291: 228-238. German JULES CHEMISTRY Performing Organization Address City/[facility]/ZIP Co de Phone Number [facility] [address] [place] [address], * MAGNESIUM (06/27/2024 2:29 PM CDT) MAGNESIUM 2.1 1.6 - 2.6 mg/dL 06/27/2024 4:04 PM CDT [facility] Blood BLOOD SPECIMEN / Unknown Non-Lab Venipuncture / Unknown 06/27/2024 2:29 PM CDT 06/27/2024 2:40 PM CDT German JULES CHEMISTRY Performing Organization Address City/[facility]/ZIP Co de Phone Number [facility] [address] [place] [address], * BASIC METABOLIC PANEL (06/27/2024 2:29 PM CDT) SODIUM 137 136 - 145 mmol/L 06/27/2024 4:04 PM CDT [facility] POTASSIUM 4.5 3.5 - 5.1 mmol/L 06/27/2024 4:04 PM CDT [facility] CHLORIDE 102 98 - 107 mmol/L 06/27/2024 4:04 PM CDT [facility] CO2,TOTAL 27 22 - 29 mmol/L 06/27/2024 4:04 PM CDT [facility] ANION GAP 8 5 - 18 06/27/2024 4:04 PM CDT [facility] GLUCOSE 82 70 - 99 mg/dL 06/27/2024 4:04 PM CDT [facility] CALCIUM 8.9 8.6 - 10.0 mg/dL 06/27/2024 4:04 PM CDT [facility] BUN 7 6 - 20 mg/dL 06/27/2024 4:04 PM CDT [facility] CREATININE 0.65 0.50 - 0.90 mg/dL 06/27/2024 4:04 PM CDT [facility] BUN/CREAT RATIO 11 10 - 20 4:04 PM CDT [facility] eGFR >90 >90 mL/min/1.7 3m2 06/27/2024 4:04 PM CDT [facility] Comment:As of 2022, eG FR is calculated by the CKD-EPI creatinine equation without race adjustment. ??eGFR can be influenced by muscle mass, exercise, and diet. ??The reported eGFR is an estimation only and is only applicable if the renal function is stable. Blood BLOOD SPECIMEN / Unknown Non-Lab Venipuncture / Unknown 06/27/2024 2:29 PM CDT 06/27/2024 2:40 PM CDT German JULES CHEMISTRY [facility] [address] [place] [address], * ZIO PATCH XT - weekly to monthly symptoms. (06/27/2024 12:00 AM CDT) [facility] JULES CARDI[facility] SERVICES ORD * HPV HIGH RISK (07/09/2021 3:10 PM CDT) TYPE 16 Negative Negative 07/14/2021 12:13 PM CDT [facility] TYPE 18 Negative Negative 07/14/2021 12:13 PM CDT [facility] OTHER HIGH RISK TYPES Negative Negative 07/14/2021 12:13 PM CDT [facility] Other (Cervical/Vagina l) 07/09/2021 3:10 PM CDT 07/13/2021 10:14 AM CDT Narrative [facility] - 07/14/2021 12:13 PM CDT HPV types 16, 18, 31, 33, 35, 39, 45, 51, 52, 56, 58, 59, 66 and 68 DNA were undetectable or below the pre-set threshold. Methodology: Brandon Belia 4800 HPV Test January Marah PERLA MICROBIOLOGY [facility] [address] [place] [address], from Last 3 Months or Most Recently Relevant to Health Maintenance Care Teams Leather Cleaner Relationship Specialty Start Date End Date Kenan Brian MD [address] [place] [address] PCP - General Internal Medicine 12/23/22
--- OUTSIDE RECORDS SUMMARY | 2024-09-03 09:05 | XMS_ITS | Clinical Summary ---
Author Organization [facility] Address [address] [place] [address] Care Team Providers Care Neurology Manager Name Role Phone Needs Pcp, Assignment Primary Care Provider [phone] Source Comments You are receiving this document as you are listed as the primary care provider,follow-up provider, or the patient has been referred to you for consultation.This is in compliance with the Medicare and[facility] Cent[facility]aid EHR Incentive Program,which states Providers who transition their patient to another setting of careor provider of care or refers their patient to another provider of care shouldprovide summary care record for each transition of care or referral. [facility] Allergies No known active allergies Medications Medication [...] 20 mg by mouth daily. 12/23/2020 Active BUSINESS DEVELOPMENT SPECIALIST THYROID 90 MG tablet TAKE 1 [...] Comments Blood Pressure 140/87 10/02/2019 10:04 AM TRANSPORT TECHNICIAN Pulse 84 10/02/2019 10:04 AM TRANSPORT TECHNICIAN Temperature 36.4 ??C (97.5 ??F) 04/28/2018 9:04 AM CD T Respiratory Rate 16 10/02/2019 10:04 AM TRANSPORT TECHNICIAN Oxygen Saturation 99% 10/02/2019 10:04 AM TRANSPORT TECHNICIAN Inhaled Oxygen Concentration - - Weight 77.6 [...] of 2) 2023 COVID-19 Vaccine (1 - 2023-2 5 season) 2024 Influenza (#1) 2024 07/27/2018, 09/29/2017, 09/16/2004 HepA Aged Out No longer eligi ble based on patient's age to complete this topic Hib Aged Out No longer eligi ble based on patient's age to complete this topic IPV (Polio) Aged Out No longer eligi ble based on patient's age to complete this topic RSV Aged Out No longer eligi ble based on patient's age to complete this topic MCV4 Aged Out No longer eligi ble based on patient's age to complete this topic Pneumococcal Aged Out No longer eligi ble based on patient's age to complete this topic Care Teams Neurology Manager Relationship Specialty Start Date End Date Needs Pcp, [place], [place] [address] PCP - General 04/24/14
--- NOTE | 2024-09-03 10:14 | W.ANESCHARGE ---
Anesthesia Charges Start Date/Time Anesthesia Start Date: 09/03/24 Anesthesia Start Time: 09:39 Stop Date/Time Anesthesia Stop Date: 09/03/24 Anesthesia Stop Time: 10:09
--- NOTE | 2024-09-03 11:41 | W.ANESCHARGE ---
Anesthesia Charges Start Date/Time Anesthesia Start Date: 09/03/24 Anesthesia Start Time: 09:39 Stop Date/Time Anesthesia Stop Date: 09/03/24 Anesthesia Stop Time: 10:09
== END 2024-09-03 09:00 | disposition home or self-care (01) ==
LOC: OP CLINIC 09:00
PROVIDERS: PCP Internal Medicine; Visit Provider Surgery
DX: Z12.11 Encounter for screening for malignant neoplasm of colon (principal); D12.8 Benign neoplasm of rectum; K64.8 Other hemorrhoids; Z83.719 Family history of colon polyps, unspecified
CPT/HCPCS: 00811; 45385; 88305; J2704

== ENCOUNTER 2025-03-13 10:04 | Outpatient (CLI) | payer MEDICAID, SELFPAY | END 2025-03-13 10:05 | disposition home or self-care (01) | LOC: NFLDREF 10:04 | PROVIDERS: PCP Internal Medicine; Visit Provider Obstetrics & Gynecology | DX: R39.15 Urgency of urination (principal) | CPT/HCPCS: 87086 ==

== ENCOUNTER 2025-04-03 06:51 | Day surgery (SDC) | payer MEDICAID, SELFPAY ==
[2025-04-03] VITALS (16 sets, daily range): BP systolic 94–123; BP diastolic 61–78; PULSE 60–73; RESP 14–16; TEMP 36.3–37; O2SAT 94–100; BMI 22.7
[2025-04-03] MEDS: LACTATED RINGERS 1000 ML 1,000 ML 100 ML IV ×2 (07:15→10:14)
[2025-04-03] MEDS: SODIUM CHLORIDE 0.9 % (FLUSH) 10 ML SYRINGE IVF (07:20)
[2025-04-03] MEDS: CEFAZOLIN 2 GM INJ IVP (08:15)
--- NOTE | 2025-04-03 08:23 | P.ANES_ITS ---
Anesthesia Charges Start Date/Time Anesthesia Start Date: 04/03/25 Anesthesia Start Time: 08:05 Stop Date/Time Anesthesia Stop Date: 04/03/25 Anesthesia Stop Time: 09:26 Coding CPT Codes CPT Codes: ANESTH SURG ON VAG/URETHRAL - 00831 ([id number]) P3 - PATIENT W/SEVERE SYS DISEASE, QK - STATION OPERATOR 2-4 CNCRNT ANES PROC, QX - WAREHOUSE ORDER FILLER SVC W/ MD MED DIRECTION
--- NOTE | 2025-04-03 08:23 | W.ANESCHARGE ---
Anesthesia Charges Start Date/Time Anesthesia Start Date: 04/03/25 Anesthesia Start Time: 08:05 Stop Date/Time Anesthesia Stop Date: 04/03/25 Anesthesia Stop Time: 09:26 Coding CPT Codes CPT Codes: ANESTH SURG ON VAG/URETHRAL - 13201 ([id number]) P3 - PATIENT W/SEVERE SYS DISEASE, QK - INDEPENDENT LIVING INSTRUCTOR 2-4 CNCRNT ANES PROC, QX - NURSE INFORMATICIST SVC W/ MD MED DIRECTION
--- NOTE | 2025-04-03 08:33 | P.ANES_ITS ---
Anesthesia Charges Start Date/Time Anesthesia Start Date: 04/03/25 Anesthesia Start Time: 08:05 Stop Date/Time Anesthesia Stop Date: 04/03/25 Anesthesia Stop Time: 09:26 Coding CPT Codes CPT Codes: ANESTH SURG ON VAG/URETHRAL - 67179 ([id number]) P3 - PATIENT W/SEVERE SYS DISEASE, QK - FINISHED STOCK INSPECTOR 2-4 CNCRNT ANES PROC, QX - AIRCRAFT INSTRUMENT REPAIRER SVC W/ MD MED DIRECTION
--- NOTE | 2025-04-03 08:33 | W.ANESCHARGE ---
Anesthesia Charges Start Date/Time Anesthesia Start Date: 04/03/25 Anesthesia Start Time: 08:05 Stop Date/Time Anesthesia Stop Date: 04/03/25 Anesthesia Stop Time: 09:26 Coding CPT Codes CPT Codes: ANESTH SURG ON VAG/URETHRAL - 29169 ([id number]) P3 - PATIENT W/SEVERE SYS DISEASE, QK - ALLIED HEALTH PROFESSIONAL 2-4 CNCRNT ANES PROC, QX - TELEVISION REPORTER SVC W/ MD MED DIRECTION
[2025-04-03] MEDS: LIDOCAINE 1%-EPI 1:100,000 20 ML INFILTRATI (09:00)
--- NOTE | 2025-04-03 09:30 | W.PM.GYNPROC ---
Procedure Note Date of procedure: 04/03/25 Will [facility] bill your pro fee for this procedure?: Yes Pre-op diagnosis: 1. Cystocele 2. Urinary retention 3. Urge incontinence Post-op diagnosis: Same Procedure: Cystocele repair Anesthesia: GETA Complications: None Surgeon: Kiana Winkler MD Estimated blood loss (mL): 10 Pathology: none sent Condition: stable Disposition: PACU Findings: Grade 2-3 cystocele. Mild uterine descensus. Procedure Description: Informed consent was obtained for cystocele repair. The patient was taken to the operating room where general anesthesia was obtained without difficulty. She was prepared and draped in the normal, sterile, dorsal lithotomy position. A Woodard catheter was sterilely placed into the bladder and left to gravity drainage. The urethrovesical angle was identified by palpation using the indwelling Woodard catheter as a guide. Allis clamps were placed just proximal to the palpable previously placed TVT mesh. The anterior vaginal mucosa was infiltrated with 0.25% lidocaine with epinephrine in the midline from distal to proximal. The vaginal mucosa was then incised from UV angle to the cervix. The vaginal mucosa was sharply dissected off of the endopelvic fascia to the sidewall. The anterior endopelvic fascia adjacent to the pelvic sidewall was then serially plicated with interrupted sutures of 2-0 Vicryl from distal to proximal. This provided excellent elevation of the bladder. The vaginal mucosa was trimmed and then closed in a running locking fashion with 2-0 Vicryl. The patient tolerated the procedure well. Sponge, lap, instrument, and needle counts were reported as correct x2. The patient was taken to the recovery room awake in stable condition.
[2025-04-03] MEDS: hydrOXYzine pamoate 25 MG CAPSULE PO (10:10)
[2025-04-03] MEDS: OXYCODONE 5 MG TABLET PO (10:12)
[2025-04-03] MEDS: ACETAMINOPHEN 500 MG TABLET 1000 MG PO (12:58)
--- NOTE | 2025-04-03 12:59 | SUR.PHASEII ---
patten catheter discontinued at 1235
--- NOTE | 2025-04-03 13:00 | SUR.PHASEII ---
patten catheter discontinued at 12:35 PM
--- NOTE | 2025-04-03 15:47 | PC.NURSE ---
Patient calling- had surgery today and prescritons have not been sent to the pharmacy. Nurse in patient chart to look at prescriptions.
== END 2025-04-03 13:14 | disposition home or self-care (01) ==
LOC: OR 06:53
PROVIDERS: PCP Internal Medicine; Visit Provider Obstetrics & Gynecology
PROC: (CPT 57260; principal; 2025-04-03 08:00)
DX: N81.11 Cystocele, midline (principal); R33.9 Retention of urine, unspecified; N39.41 Urge incontinence
CPT/HCPCS: 57240; 00942; A4314; A9270; J0690; J1100; J1885; J2405; J2704; J3490; J7120

== ENCOUNTER 2025-04-04 15:11 | Outpatient (CLI) | payer MEDICAID, SELFPAY ==
--- NOTE | 2025-04-04 15:20 | CRLHL7_ITS ---
For Patients: As a result of the Century Cures Act, medical imaging exams and procedure reports are released immediately into your electronic medical record. You may view this report before your referring provider. If you have questions, please contact your health care provider. INDICATION: BILATERAL SCREENING MAMMOGRAM W/IMPLANTS, ASYMPTOMATIC 49 Y/O FEMALE COMPARISON: 09/15/2022 TECHNIQUE: Digital mammogram in CC and MLO projections including computer-aided detection (CAD) and tomosynthesis. BREAST COMPOSITION: The breasts are heterogeneously dense, which may obscure small masses. FINDINGS: No suspicious findings. ASSESSMENT: BI-RADS 2 Benign RECOMMENDATION: Annual screening mammogram. A lay language report of this examination will be provided to the patient. Dictated by: Robert Cartagena MD @ 04/09/2025 13:04:14 (Electronically Signed)
== END 2025-04-04 15:12 | disposition home or self-care (01) ==
LOC: MAMMO 15:12
PROVIDERS: PCP Internal Medicine; Visit Provider Internal Medicine
DX: Z12.31 Encounter for screening mammogram for malignant neoplasm of breast (principal); R92.333 Mammographic heterogeneous density, bilateral breasts; Z98.82 Breast implant status
CPT/HCPCS: 77063; 77067; A9270